=== PATIENT | female | born 1955 | race Caucasian/White ===

== ENCOUNTER 2018-01-29 11:02 | Emergency (ER) | payer BC ==
[2018-01-29 11:11] VITALS: BP 161/75; PULSE 86; RESP 16; TEMP 98.8; O2SAT 96
[2018-01-29] MEDS ORDERED: SODIUM CHLORIDE 0.9% FLUSH 10 ML FLUSH IVF PRN (11:45)
[2018-01-29 11:54] VITALS: RESP 18; O2SAT 96
[2018-01-29 12:03] LABS: AUTOMATED NEUTROPHIL # 10.5 TH/MM3 (1.8-7.7); BASOPHIL % 0.3 % (0.0-2.0); HEMATOCRIT 42.9 % (35.0-46.0); HEMOGLOBIN 13.6 GM/DL (11.6-15.3); LYMPH % 6.8 % (9.0-44.0); LYMPHOCYTE # 0.8 TH/MM3 (1.0-4.8); MEAN CELL VOLUME 85.1 FL (80.0-100.0); MEAN CORPUSCULAR HEMOGLOBIN 26.9 PG (27.0-34.0); MEAN CORPUSCULAR HGB CONC 31.6 % (32.0-36.0); MEAN PLATELET VOLUME 8.6 FL (7.0-11.0); MONO % 5.5 % (0.0-8.0); MONOCYTE # 0.7 TH/MM3 (0-0.9); NEUT % 87.4 % (16.0-70.0); PLATELET COUNT 171 TH/MM3 (150-450); RED BLOOD COUNT 5.04 MIL/MM3 (4.00-5.30); RED CELL DISTRIBUTION WIDTH 15.8 % (11.6-17.2)
--- NOTE | 2018-01-29 12:03 | RADRPT ---
EXAM DATE/TIME: 01/29/2018 11:42 [facility] COMPARISON: No previous studies available for comparison. INDICATIONS : Chest pain, short of breath. MEDICAL HISTORY : None. SURGICAL HISTORY : None. ENCOUNTER: Initial ACUITY: 2 days PAIN SCORE: 7/10 LOCATION: Bilateral chest FINDINGS: Left basilar consolidation is noted consistent with atelectasis and/or pneumonia. Clinical correlatio n is recommended. The right lung is clear. The heart is normal. CONCLUSION: Left basilar consolidation consistent with atelectasis and/or pneumonia. Clinical correlation is barney mmended. Christiano Russell MD on January 29, 2018 at 12:00 Board Certified Radiologist. This report was verified electronically.
[2018-01-29 12:12] LABS: CHLORIDE 101 MEQ/L (98-107); SODIUM (NA) 135 MEQ/L (136-145)
[2018-01-29 12:15] LABS: CALCIUM 8.4 MG/DL (8.5-10.1)
[2018-01-29] MEDS ORDERED: KETOROLAC TROMETHAMINE 30 MG/ML (IVP) VIAL IV PUSH ONE (12:15)
[2018-01-29 12:16] LABS: BICARBONATE 21.8 MEQ/L (21.0-32.0); BLOOD UREA NITROGEN 18 MG/DL (7-18); GLUCOSE,RANDOM 208 MG/DL (74-106); MAGNESIUM 2.1 MG/DL (1.5-2.5)
[2018-01-29 12:19] LABS: ALT (GPT) 72 U/L (10-53); AST (GOT) 76 U/L (15-37); GLOMERULAR FILTRATION RATE 30 ML/MIN (>89)
[2018-01-29 12:20] LABS: TOTAL BILIRUBIN ADULT 0.7 MG/DL (0.2-1.0); TOTAL PROTEIN 8.1 GM/DL (6.4-8.2)
[2018-01-29 12:22] LABS: ALKALINE PHOSPHATASE 314 U/L (45-117)
[2018-01-29 12:24] LABS: TROPONIN I LESS THAN 0.02 NG/ML (0.02-0.05)
[2018-01-29] MEDS ORDERED: AZIT250T3 PO (12:43)
[2018-01-29] MEDS ORDERED: NAPR250T4 PO (12:43)
[2018-01-29 12:44] VITALS: BP 117/68; PULSE 74; RESP 18; O2SAT 98
--- NOTE | 2018-01-29 12:44 | PD ---
HPI Chief Complaint: Chest Pain Time Seen by Provider: 11:33 Travel History International Travel<30 days: No Contact w/Intl Traveler<30days: No Traveled to known affect area: No History of Present Illness HPI This 62-year-old woman who presents department complaining of chest pain is gone once to 11 PM last night. She has been sick for the past week or so, cough , sputum production, no real fevers. This is overall improving. Pain is worse with deep breathing, or cough, or with any movement. Medial little bit of shortness of breath. No other symptoms. She otherwise had been feeling well and healthy prior to this. No history of heart disease or lung disease. History Past Medical History Medical History: Denies Significant Hx Influenza Vaccination: No Social History Alcohol Use: Yes Tobacco Use: No Allergies-Medications (Allergen,Severity, Reaction): Coded Allergies: No Known Allergies (Unverified , 01/29/18) Reported Meds & Prescriptions Reported Meds & Active Scripts Active No Active Prescriptions or Reported Medications Review of Systems Except as stated in HPI: all other systems reviewed are Neg Physical Exam Narrative GENERAL: Well-appearing 62-year-old woman, no acute distress. SKIN: Focused skin assessment warm/dry. HEAD: Atraumatic. Normocephalic. EYES: Pupils equal and round. No scleral icterus. No injection or drainage. ENT: No nasal bleeding or discharge. Mucous membranes pink and moist. NECK: Trachea midline. No JVD. CARDIOVASCULAR: Regular rate and rhythm. No murmur appreciated. RESPIRATORY: No accessory muscle use. Coarse rales in the left base. GASTROINTESTINAL: Abdomen soft, non-tender, nondistended. Hepatic and splenic margins not palpable. MUSCULOSKELETAL: No obvious deformities. No clubbing. No cyanosis. No edema. NEUROLOGICAL: Awake and alert. No obvious cranial nerve deficits. Motor grossly within normal limits. Normal speech. PSYCHIATRIC: Appropriate mood and affect; insight and judgment normal. Data Data Last Documented VS Vital Signs Date Time Temp Pulse Resp B/P (MAP) Pulse Ox O2 Delivery O2 Flow Rate FiO2 01/29/18 11:54 18 96 Nasal Cannula 2.00 01/29/18 11:14 86 01/29/18 11:11 98.8 161/75 (103) Orders Orders Electrocardiogram (01/29/18 11:34) Complete Blood Count With Diff (01/29/18 11:34) Comprehensive Metabolic Panel (01/29/18 11:34) Magnesium (Mg) (01/29/18 11:34) Troponin I (01/29/18 11:34) Lipase (01/29/18 11:34) Ecg Monitoring (01/29/18 11:34) Iv Access Insert/Monitor (01/29/18 11:34) Oximetry (01/29/18 11:34) Oxygen Administration (01/29/18 11:34) Sodium Chloride 0.9% Flush (Ns Flush) (01/29/18 11:45) Chest, Pa & Lat (01/29/18 11:34) Ketorolac Inj (Toradol Inj) (01/29/18 12:15) Azithromycin (Zithromax) (01/29/18 12:45) Labs Laboratory Tests Test 01/29/18 11:15 White Blood Count 12.0 TH/MM3 Red Blood Count 5.04 MIL/MM3 Hemoglobin 13.6 GM/DL Hematocrit 42.9 % Mean Corpuscular Volume 85.1 FL Mean Corpuscular Hemoglobin 26.9 PG Mean Corpuscular Hemoglobin Concent 31.6 % Red Cell Distribution Width 15.8 % Platelet Count 171 TH/MM3 Mean Platelet Volume 8.6 FL Neutrophils (%) (Auto) 87.4 % Lymphocytes (%) (Auto) 6.8 % Monocytes (%) (Auto) 5.5 % Eosinophils (%) (Auto) 0.0 % Basophils (%) (Auto) 0.3 % Neutrophils # (Auto) 10.5 TH/MM3 Lymphocytes # (Auto) 0.8 TH/MM3 Monocytes # (Auto) 0.7 TH/MM3 Eosinophils # (Auto) 0.0 TH/MM3 Basophils # (Auto) 0.0 TH/MM3 CBC Comment DIFF FINAL Differential Comment Blood Urea Nitrogen 18 MG/DL Creatinine 1.70 MG/DL Random Glucose 208 MG/DL Total Protein 8.1 GM/DL Albumin 3.0 GM/DL Calcium Level 8.4 MG/DL Magnesium Level 2.1 MG/DL Alkaline Phosphatase 314 U/L Aspartate Amino Transf (AST/SGOT) 76 U/L Alanine Aminotransferase (ALT/SGPT) 72 U/L Total Bilirubin 0.7 MG/DL Sodium Level 135 MEQ/L Potassium Level 4.0 MEQ/L Chloride Level 101 MEQ/L Carbon Dioxide Level 21.8 MEQ/L Anion Gap 12 MEQ/L Estimat Glomerular Filtration Rate 30 ML/MIN Troponin I LESS THAN 0.02 NG/ML Lipase 102 U/L MDM Medical Decision Making Medical Screen Exam Complete: Yes Emergency Medical Condition: Yes Interpretation(s) LABS: CBC remarkable for mild leukocytosis. CMP is remarkable for mild elevated creatinine, AST ALT and alk phos are all mildly elevated as well. Troponins negative. Lipase normal. Chest x-ray: Left basilar consolidation. Differential Diagnosis Pneumonia, pleurisy, ACS, other Narrative Course Well-appearing 62-year-old woman, cough cold symptoms for week, now with left- sided chest pain. Chest x-ray shows left basilar infiltrate likely pneumonia. Liver enzymes are little bit abnormal. Recommend treatment for pneumonia, outpatient follow-up. Diagnosis Primary Impression: Pneumonia Additional Instructions: Take azithromycin as prescribed. Take Naprosyn as needed for pain. Drink plenty fluids stay well-hydrated. Follow with her primary doctor for follow-up for pneumonia, as well as follow- up of your abnormal liver test. Med/Other Pt SpecificInfo: Prescription(s) given Scripts Naproxen (Naproxen) 250 Mg Tab 250 MG PO BID, #14 TAB 0 Refills Prov: Maverick Cassidy MD 01/29/18 Azithromycin (Azithromycin) 250 Mg Tab 250 MG PO DAILY for Infection for 4 Days, #4 TAB 0 Refills Prov: Maverick Cassidy MD 01/29/18 Disposition: 01 DISCHARGE HOME Condition: Stable Maverick Cassidy MD Jan 29, 2018 12:44
[2018-01-29] MEDS ORDERED: AZITHROMYCIN 250 MG TAB PO ONE (12:45)
[2018-01-29 12:53] VITALS: RESP 16
--- NOTE | 2018-01-30 23:07 | EKG ---
Date Performed: 01/29/2018 Time Performed: 11:13:59 PTAGE: 62 years EKG: Sinus rhythm VOLTAGE CRITERIA FOR LVH ABNORMAL ECG NO PREVIOUS TRACING DOCTOR: Casey Virk Interpretating Date/Time 01/30/2018 23:06:09
== END 2018-01-29 13:29 | disposition home or self-care (01) ==
LOC: PHED 11:02
DX: J18.9 Pneumonia, unspecified organism (principal); R94.31 Abnormal electrocardiogram [ECG] [EKG]
CPT/HCPCS: 71046; 80053; 83690; 83735; 84484; 85025; 93005; 96374; 99285; J1885

== ENCOUNTER 2018-01-30 11:13 | Inpatient (IN) | payer BC ==
[~2018-01-30] VITALS: Ht 160 cm; Wt 102.2 kg
[2018-01-30] VITALS (12 sets, daily range): BP systolic 104–207; BP diastolic 57–91; PULSE 72–112; RESP 16–40; TEMP 97.1–98.5; O2SAT 90–100
[~2018-01-30 11:13] MED LIST: AZIT250T3 PO; NAPR250T4 PO
[2018-01-30] MEDS ORDERED: SODIUM CHLORIDE 0.9% FLUSH 10 ML FLUSH IVF PRN (16:00)
[2018-01-30] MEDS ORDERED: SODIUM CHLOR 0.9% 1000 ML INJ 1,000 ML IV ONE ×5 (16:00→21:15)
--- NOTE | 2018-01-30 16:10 | PD ---
HPI Chief Complaint: Respiratory Symptoms Time Seen by Provider: 15:50 Travel History International Travel<30 days: No Contact w/Intl Traveler<30days: No Traveled to known affect area: No History of Present Illness HPI Patient is a 62-year-old female presenting to the emergency department for evaluation of increasing shortness of breath and chest pain. She reports 1 week of coughing 3 days of pain in her left chest which radiates to her back, which prompted the visit to the emergency room yesterday. She rates her pain a 6 out of 10. She reports fevers, chills, fatigue, mild nausea. She denies any abdominal pain, vomiting. Patient denies any significant past medical history. Symptom onset was gradual, symptom severity is severe, there are no alleviating factors. Patient states that she has been taking the antibiotics that were prescribed to her. She denies any current or historical tobacco use. PFSH Past Medical History Medical History: Denies Significant Hx Diminished Hearing: No Past Surgical History Abdominal Surgery: Yes (GASTRIC BYPASS ) Tonsillectomy: Yes Social History Alcohol Use: Yes Tobacco Use: No Substance Use: No Allergies-Medications (Allergen,Severity, Reaction): Coded Allergies: No Known Allergies (Unverified , 01/30/18) Reported Meds & Prescriptions Reported Meds & Active Scripts Active Naproxen 250 Mg Tab 250 Mg PO BID Azithromycin 250 Mg Tab 250 Mg PO DAILY 4 Days Review of Systems Except as stated in HPI: all other systems reviewed are Neg General / Constitutional: Positive: Fever, Chills Eyes: No: Blurred Vision HENT: No: Headaches, Lightheadedness, Sore Throat, Congestion Cardiovascular: Positive: Chest Pain or Discomfort Respiratory: Positive: Cough, Shortness of Breath, Wheezing Gastrointestinal: Positive: Nausea, No: Vomiting, Diarrhea, Abdominal Pain Musculoskeletal: No: Myalgias Neurologic: No: Weakness, Dizziness, Syncope, Focal Abnormalities Physical Exam Narrative GENERAL: Well-developed, well-nourished, alert female. Appears uncomfortable. SKIN: Warm and dry. HEAD: Atraumatic. Normocephalic. EYES: Pupils equal and round. No scleral icterus. No injection or drainage. ENT: No nasal bleeding or discharge. Mucous membranes pink and moist. NECK: Trachea midline. No JVD. CARDIOVASCULAR: Tachycardic RESPIRATORY: No accessory muscle use. Scattered expiratory wheezes with coarse breath sounds in bases. GASTROINTESTINAL: Abdomen soft, non-tender, nondistended. Hepatic and splenic margins not palpable. MUSCULOSKELETAL: Extremities without clubbing, cyanosis, or edema. No obvious deformities. NEUROLOGICAL: Awake and alert. No obvious cranial nerve deficits. Motor grossly within normal limits. Five out of 5 muscle strength in the arms and legs. Normal speech. PSYCHIATRIC: Appropriate mood and affect; insight and judgment normal. Data Data Last Documented VS Vital Signs Date Time Temp Pulse Resp B/P (MAP) Pulse Ox O2 Delivery O2 Flow Rate FiO2 01/30/18 18:25 97.5 110 40 170/89 (116) 94 Nasal Cannula 2.00 Orders Orders Complete Blood Count With Diff (01/30/18 15:56) Comprehensive Metabolic Panel (01/30/18 15:56) Act Partial Throm Time (Ptt) (01/30/18 15:56) Prothrombin Time / Inr (Pt) (01/30/18 15:56) Magnesium (Mg) (01/30/18 15:56) Ckmb (Isoenzyme) Profile (01/30/18 15:56) Troponin I (01/30/18 15:56) Blood Culture (01/30/18 15:56) Iv Access Insert/Monitor (01/30/18 15:56) Electrocardiogram (01/30/18 15:56) Ecg Monitoring (01/30/18 15:56) Oximetry (01/30/18 15:56) Oxygen Administration (01/30/18 15:56) Chest, Single Ap (01/30/18 15:56) Sodium Chloride 0.9% Flush (Ns Flush) (01/30/18 16:00) Albuterol-Ipratropium Neb (Duoneb Neb) (01/30/18 16:00) Lactic Acid Sepsis Protocol (01/30/18 15:56) Sodium Chlor 0.9% 1000 Ml Inj (Ns 1000 M (01/30/18 16:00) Sodium Chlor 0.9% 1000 Ml Inj (Ns 1000 M (01/30/18 17:30) Ceftriaxone Inj (Rocephin Inj) (01/30/18 17:30) Morphine Inj (Morphine Inj) (01/30/18 17:30) Ondansetron Inj (Zofran Inj) (01/30/18 17:30) Azithromycin Inj (Zithromax Inj) (01/30/18 17:30) Sepsis Workup Initiated (01/30/18 ) Sodium Chlor 0.9% 1000 Ml Inj (Ns 1000 M (01/30/18 17:28) Piperacil-Tazo 3.375 Gm Premix (Zosyn 3. (01/30/18 18:00) Arterial Blood Gas (Abg) (01/30/18 ) Vancomycin Inj (Vancomycin Inj) (01/30/18 18:00) Ketorolac Inj (Toradol Inj) (01/30/18 18:00) Lactic Acid Sepsis Protocol (01/30/18 18:16) Resp Bipap / Cpap Non Invas Vt (01/30/18 ) Admit Order (Ed Use Only) (01/30/18 18:43) Labs Laboratory Tests Test 01/30/18 16:00 01/30/18 16:05 01/30/18 18:05 01/30/18 18:07 White Blood Count 13.1 TH/MM3 Red Blood Count 4.91 MIL/MM3 Hemoglobin 13.6 GM/DL Hematocrit 42.0 % Mean Corpuscular Volume 85.5 FL Mean Corpuscular Hemoglobin 27.6 PG Mean Corpuscular Hemoglobin Concent 32.3 % Red Cell Distribution Width 16.8 % Platelet Count 245 TH/MM3 Mean Platelet Volume 9.1 FL Neutrophils (%) (Auto) 88.9 % Lymphocytes (%) (Auto) 4.5 % Monocytes (%) (Auto) 6.6 % Eosinophils (%) (Auto) 0.0 % Basophils (%) (Auto) 0.0 % Neutrophils # (Auto) 11.7 TH/MM3 Lymphocytes # (Auto) 0.6 TH/MM3 Monocytes # (Auto) 0.9 TH/MM3 Eosinophils # (Auto) 0.0 TH/MM3 Basophils # (Auto) 0.0 TH/MM3 CBC Comment AUTO DIFF Differential Total Cells Counted 100 Neutrophils % (Manual) 69 % Band Neutrophils % 23 % Lymphocytes % 2 % Monocytes % 6 % Neutrophils # (Manual) 12.1 TH/MM3 Differential Comment FINAL DIFF MANUAL Toxic Granulation 1+ Dohle Bodies PRESENT Platelet Estimate NORMAL Platelet Morphology Comment NORMAL Prothrombin Time 10.7 SEC Prothromb Time International Ratio 1.1 RATIO Activated Partial Thromboplast Time 29.4 SEC Blood Urea Nitrogen 44 MG/DL Creatinine 2.83 MG/DL Random Glucose 169 MG/DL Total Protein 8.5 GM/DL Albumin 2.8 GM/DL Calcium Level 9.4 MG/DL Magnesium Level 2.1 MG/DL Alkaline Phosphatase 247 U/L Aspartate Amino Transf (AST/SGOT) 53 U/L Alanine Aminotransferase (ALT/SGPT) 56 U/L Total Bilirubin 0.8 MG/DL Sodium Level 134 MEQ/L Potassium Level 4.3 MEQ/L Chloride Level 101 MEQ/L Carbon Dioxide Level 18.1 MEQ/L Anion Gap 15 MEQ/L Estimat Glomerular Filtration Rate 17 ML/MIN Total Creatine Kinase 82 U/L Troponin I LESS THAN 0.02 NG/ML Lactic Acid Level 3.5 mmol/L Blood Gas Puncture Site RT RADIAL Blood Gas Patient Temperature 98.6 Blood Gas HCO3 10 mmol/L Blood Gas Base Excess -14.5 mmol/L Blood Gas Oxygen Saturation 88 % Arterial Blood pH 7.33 Arterial Blood Partial Pressure CO2 20 mmHg Arterial Blood Partial Pressure O2 64 mmHG Arterial Blood Oxygen Content 16.5 Vol % Arterial Blood Carboxyhemoglobin 0.8 % Arterial Blood Methemoglobin 0.7 % Blood Gas Hemoglobin 13.3 G/DL Oxygen Delivery Device NASAL CANNULA Blood Gas Liter Flow 2 L/M [facility] Medical Decision Making Medical Screen Exam Complete: Yes Emergency Medical Condition: Yes Medical Record Reviewed: Yes Interpretation(s) Last Impressions Chest X-Ray 01/30/18 1556 Signed Impressions: Service Date/Time: Sunday, January 30, 2018 16:01 - CONCLUSION: 1. Bilateral airspace disease with significant consolidation in the left base. 2. Elevated left hemidiaphragm versus eventration. Ramon Blunt MD Laboratory Tests Test 01/30/18 16:00 01/30/18 16:05 01/30/18 18:05 01/30/18 18:07 White Blood Count 13.1 TH/MM3 Red Blood Count 4.91 MIL/MM3 Hemoglobin 13.6 GM/DL Hematocrit 42.0 % Mean Corpuscular Volume 85.5 FL Mean Corpuscular Hemoglobin 27.6 PG Mean Corpuscular Hemoglobin Concent 32.3 % Red Cell Distribution Width 16.8 % Platelet Count 245 TH/MM3 Mean Platelet Volume 9.1 FL Neutrophils (%) (Auto) 88.9 % Lymphocytes (%) (Auto) 4.5 % Monocytes (%) (Auto) 6.6 % Eosinophils (%) (Auto) 0.0 % Basophils (%) (Auto) 0.0 % Neutrophils # (Auto) 11.7 TH/MM3 Lymphocytes # (Auto) 0.6 TH/MM3 Monocytes # (Auto) 0.9 TH/MM3 Eosinophils # (Auto) 0.0 TH/MM3 Basophils # (Auto) 0.0 TH/MM3 CBC Comment AUTO DIFF Differential Total Cells Counted 100 Neutrophils % (Manual) 69 % Band Neutrophils % 23 % Lymphocytes % 2 % Monocytes % 6 % Neutrophils # (Manual) 12.1 TH/MM3 Differential Comment FINAL DIFF MANUAL Toxic Granulation 1+ Dohle Bodies PRESENT Platelet Estimate NORMAL Platelet Morphology Comment NORMAL Prothrombin Time 10.7 SEC Prothromb Time International Ratio 1.1 RATIO Activated Partial Thromboplast Time 29.4 SEC Blood Urea Nitrogen 44 MG/DL Creatinine 2.83 MG/DL Random Glucose 169 MG/DL Total Protein 8.5 GM/DL Albumin 2.8 GM/DL Calcium Level 9.4 MG/DL Magnesium Level 2.1 MG/DL Alkaline Phosphatase 247 U/L Aspartate Amino Transf (AST/SGOT) 53 U/L Alanine Aminotransferase (ALT/SGPT) 56 U/L Total Bilirubin 0.8 MG/DL Sodium Level 134 MEQ/L Potassium Level 4.3 MEQ/L Chloride Level 101 MEQ/L Carbon Dioxide Level 18.1 MEQ/L Anion Gap 15 MEQ/L Estimat Glomerular Filtration Rate 17 ML/MIN Total Creatine Kinase 82 U/L Troponin I LESS THAN 0.02 NG/ML Lactic Acid Level 3.5 mmol/L Blood Gas Puncture Site RT RADIAL Blood Gas Patient Temperature 98.6 Blood Gas HCO3 10 mmol/L Blood Gas Base Excess -14.5 mmol/L Blood Gas Oxygen Saturation 88 % Arterial Blood pH 7.33 Arterial Blood Partial Pressure CO2 20 mmHg Arterial Blood Partial Pressure O2 64 mmHG Arterial Blood Oxygen Content 16.5 Vol % Arterial Blood Carboxyhemoglobin 0.8 % Arterial Blood Methemoglobin 0.7 % Blood Gas Hemoglobin 13.3 G/DL Oxygen Delivery Device NASAL CANNULA Blood Gas Liter Flow 2 L/M Vital Signs Date Time Temp Pulse Resp B/P (MAP) Pulse Ox O2 Delivery O2 Flow Rate FiO2 01/30/18 15:51 107 36 156/76 (102) 90 Room Air 01/30/18 11:25 97.1 93 20 126/57 (80) 93 Differential Diagnosis Respiratory failure versus pneumonia versus pulmonary embolism versus metabolic abnormality versus other Narrative Course Patient is a 62-year-old female presenting for increasing shortness of breath and chest pain. Medical records reviewed. Patient is mildly tachycardic on arrival. She was placed on 2 L of oxygen via nasal cannula. Oxygen saturation is stable at 94% currently. Labs and imaging ordered and pending. CBC with white blood cell count at 13.1 with left shift and significant bandemia Lactic acid 3.5 Chemistry with BUN and creatinine of 44/2.83 Cardiac enzymes are negative Mild transaminitis noted Vancomycin and zosyn ordered, pt received a total of 3L IVF. Repeat lactic acid is pending ABG with metabolic acidosis with respiratory alkalosis. Bipap ordered by Dr. Marie. Dr. Marie discussed patient with Dr. Peña. Pt admitted to [facility] [place]. Diagnosis Primary Impression: PNA (pneumonia) Qualified Codes: J18.9 - Pneumonia, unspecified organism Additional Impressions: ARF (acute renal failure) Qualified Codes: N17.9 - Acute kidney failure, unspecified Sepsis Qualified Codes: A41.9 - Sepsis, unspecified organism Metabolic acidosis Respiratory alkalosis Admitting Information Admitting Physician Requests: Admit Condition: Stable Rajwinder Haley Jan 30, 2018 16:10
--- NOTE | 2018-01-30 16:15 | RADRPT ---
EXAM DATE/TIME: 01/30/2018 16:01 [facility] COMPARISON: CHEST PA & LAT, January 29, 2018, 11:42. INDICATIONS : Short of breath. MEDICAL HISTORY : was told she has pneumonia yesterday at [facility] SURGICAL HISTORY : None. ENCOUNTER: Initial ACUITY: 1 day PAIN SCORE: 10/10 LOCATION: Bilateral chest FINDINGS: Significant air space disease is identified throughout the left lung base. There is subsegmental airs pace disease laterally in the right mid lung. Air-containing colon is identified overlying the cardiac silhouette indicating elevation or eventrati on of the diaphragm. Heart size cannot be determined due to overlying opacity. CONCLUSION: 1. Bilateral airspace disease with significant consolidation in the left base. 2. Elevated left hemidiaphragm versus eventration. Ramon Blunt MD on January 30, 2018 at 16:11 Board Certified Radiologist. This report was verified electronically.
[2018-01-30] MEDS: RESP: ALBUTEROL 2.5 MG/IPRATROPIUM 0.5 MG NEB (SCH) INH ×2 (16:20→20:25)
[2018-01-30 16:45] LABS: INTERNATIONAL NORMALIZED RATIO 1.1 RATIO; PROTHROMBIN TIME - PATIENT 10.7 SEC (9.8-11.6)
[2018-01-30 16:47] LABS: AUTOMATED NEUTROPHIL # 11.7 TH/MM3 (1.8-7.7); HEMOGLOBIN 13.6 GM/DL (11.6-15.3); LYMPH % 4.5 % (9.0-44.0); LYMPHOCYTE # 0.6 TH/MM3 (1.0-4.8); MEAN CELL VOLUME 85.5 FL (80.0-100.0); MEAN CORPUSCULAR HEMOGLOBIN 27.6 PG (27.0-34.0); MEAN CORPUSCULAR HGB CONC 32.3 % (32.0-36.0); MEAN PLATELET VOLUME 9.1 FL (7.0-11.0); MONO % 6.6 % (0.0-8.0); MONOCYTE # 0.9 TH/MM3 (0-0.9); NEUT % 88.9 % (16.0-70.0); PLATELET COUNT 245 TH/MM3 (150-450); RED BLOOD COUNT 4.91 MIL/MM3 (4.00-5.30); RED CELL DISTRIBUTION WIDTH 16.8 % (11.6-17.2); WHITE BLOOD COUNT 13.1 TH/MM3 (4.0-11.0)
[2018-01-30 17:13] LABS: LACTIC ACID SEPSIS PROTOCOL 3.5 mmol/L (0.4-2.0)
[2018-01-30 17:29] LABS: ALBUMIN 2.8 GM/DL (3.4-5.0); ALKALINE PHOSPHATASE 247 U/L (45-117); ALT (GPT) 56 U/L (10-53); AST (GOT) 53 U/L (15-37); BICARBONATE 18.1 MEQ/L (21.0-32.0); BLOOD UREA NITROGEN 44 MG/DL (7-18); CALCIUM 9.4 MG/DL (8.5-10.1); CHLORIDE 101 MEQ/L (98-107); CREATININE 2.83 MG/DL (0.50-1.00); GLOMERULAR FILTRATION RATE 17 ML/MIN (>89); GLUCOSE,RANDOM 169 MG/DL (74-106); MAGNESIUM 2.1 MG/DL (1.5-2.5); SODIUM (NA) 134 MEQ/L (136-145); TOTAL BILIRUBIN ADULT 0.8 MG/DL (0.2-1.0); TOTAL PROTEIN 8.5 GM/DL (6.4-8.2); TROPONIN I LESS THAN 0.02 NG/ML (0.02-0.05)
[2018-01-30] MEDS ORDERED: MORPHINE SULFATE 2 MG/ML SYRINGE IV PUSH ONE (17:30)
[2018-01-30] MEDS ORDERED: ONDANSETRON HCL 4 MG/2 ML VIAL IV PUSH ONE (17:30)
[2018-01-30] MEDS ORDERED: cefTRIAXone INJ 2,000 MG in SODIUM CHLORIDE 0.9% INJ 100 ML IV ONE (17:30)
[2018-01-30] MEDS ORDERED: AZITHROMYCIN INJ 250 MG in SODIUM CHLOR 0.9% 250 ML INJ 250 ML IV ONE (17:30)
[2018-01-30 17:41] LABS: BANDS 23 % (0-6); DOHLE BODIES PRESENT (NONE SEEN); LYMPHOCYTES 2 % (9-44); MONOCYTES 6 % (0-8); NEUTROPHIL # MANUAL DIFF 12.1 TH/MM3 (1.8-7.7); POLYS (SEG NEUTROPHILS) 69 % (16-70)
[2018-01-30 17:43] LABS: TOXIC GRANULATION 1+ (NORMAL)
[2018-01-30] MEDS ORDERED: VANCOMYCIN INJ 1,000 MG in SODIUM CHLOR 0.9% 250 ML INJ 250 ML IV ONE (18:00)
[2018-01-30] MEDS ORDERED: PIPERACIL-TAZO 3.375 GM PREMIX 50 ML IV ONE (18:00)
[2018-01-30] MEDS ORDERED: KETOROLAC TROMETHAMINE 30 MG/ML (IVP) VIAL IV PUSH ONE (18:00)
--- NOTE | 2018-01-30 18:04 | PD ---
Physical Exam Date Seen by Provider: Jan 30, 2018 Time Seen by Provider: 18:00 Narrative 62-year-old female came to the emergency room with history of shortness of breath and chest pain. She was seen in the [place] emergency room yesterday where she was diagnosed with pneumonia and discharged home on antibiotic. Patient is back here because she did not get better and hence it got worse. He has been hypoxic and tachycardic. She's been seen by my nurse practitioner him supervising her. Blood test results suggestive of sepsis. She has some left shift with significant bandemia. Lactic acid is elevated. Chest x-ray suggestive of bilateral airspace disease with significant left lower lobe consolidation. Patient is tachypneic and shallow breathing. Oxygen saturation is low 90s on 3 L of nasal cannula. Heart rate is elevated and patient is complaining of chest pain. Patient has been given IV Zosyn and vancomycin and medicated for pain. I have ordered Toradol as well. Patient in my opinion should go to the intensive care unit given her clinical scenario. I have asked for a large of blood gas as well. The patient has been sent to the party bus driver. Awaiting for the party bus driver to call back. Data Data Last Documented VS Vital Signs Date Time Temp Pulse Resp B/P (MAP) Pulse Ox O2 Delivery O2 Flow Rate FiO2 01/30/18 18:28 100 100 01/30/18 18:25 97.5 110 40 170/89 (116) Nasal Cannula 2.00 Orders Orders Complete Blood Count With Diff (01/30/18 15:56) Comprehensive Metabolic Panel (01/30/18 15:56) Act Partial Throm Time (Ptt) (01/30/18 15:56) Prothrombin Time / Inr (Pt) (01/30/18 15:56) Magnesium (Mg) (01/30/18 15:56) Ckmb (Isoenzyme) Profile (01/30/18 15:56) Troponin I (01/30/18 15:56) Blood Culture (01/30/18 15:56) Iv Access Insert/Monitor (01/30/18 15:56) Electrocardiogram (01/30/18 15:56) Ecg Monitoring (01/30/18 15:56) Oximetry (01/30/18 15:56) Oxygen Administration (01/30/18 15:56) Chest, Single Ap (01/30/18 15:56) Sodium Chloride 0.9% Flush (Ns Flush) (01/30/18 16:00) Albuterol-Ipratropium Neb (Duoneb Neb) (01/30/18 16:00) Lactic Acid Sepsis Protocol (01/30/18 15:56) Sodium Chlor 0.9% 1000 Ml Inj (Ns 1000 M (01/30/18 16:00) Sodium Chlor 0.9% 1000 Ml Inj (Ns 1000 M (01/30/18 17:30) Ceftriaxone Inj (Rocephin Inj) (01/30/18 17:30) Morphine Inj (Morphine Inj) (01/30/18 17:30) Ondansetron Inj (Zofran Inj) (01/30/18 17:30) Azithromycin Inj (Zithromax Inj) (01/30/18 17:30) Sepsis Workup Initiated (01/30/18 ) Sodium Chlor 0.9% 1000 Ml Inj (Ns 1000 M (01/30/18 17:28) Piperacil-Tazo 3.375 Gm Premix (Zosyn 3. (01/30/18 18:00) Arterial Blood Gas (Abg) (01/30/18 ) Vancomycin Inj (Vancomycin Inj) (01/30/18 18:00) Ketorolac Inj (Toradol Inj) (01/30/18 18:00) Resp Bipap / Cpap Non Invas Vt (01/30/18 ) Admit Order (Ed Use Only) (01/30/18 18:43) Labs Laboratory Tests Test 01/30/18 16:00 01/30/18 16:05 01/30/18 18:07 White Blood Count 13.1 TH/MM3 Red Blood Count 4.91 MIL/MM3 Hemoglobin 13.6 GM/DL Hematocrit 42.0 % Mean Corpuscular Volume 85.5 FL Mean Corpuscular Hemoglobin 27.6 PG Mean Corpuscular Hemoglobin Concent 32.3 % Red Cell Distribution Width 16.8 % Platelet Count 245 TH/MM3 Mean Platelet Volume 9.1 FL Neutrophils (%) (Auto) 88.9 % Lymphocytes (%) (Auto) 4.5 % Monocytes (%) (Auto) 6.6 % Eosinophils (%) (Auto) 0.0 % Basophils (%) (Auto) 0.0 % Neutrophils # (Auto) 11.7 TH/MM3 Lymphocytes # (Auto) 0.6 TH/MM3 Monocytes # (Auto) 0.9 TH/MM3 Eosinophils # (Auto) 0.0 TH/MM3 Basophils # (Auto) 0.0 TH/MM3 CBC Comment AUTO DIFF Differential Total Cells Counted 100 Neutrophils % (Manual) 69 % Band Neutrophils % 23 % Lymphocytes % 2 % Monocytes % 6 % Neutrophils # (Manual) 12.1 TH/MM3 Differential Comment FINAL DIFF MANUAL Toxic Granulation 1+ Dohle Bodies PRESENT Platelet Estimate NORMAL Platelet Morphology Comment NORMAL Prothrombin Time 10.7 SEC Prothromb Time International Ratio 1.1 RATIO Activated Partial Thromboplast Time 29.4 SEC Blood Urea Nitrogen 44 MG/DL Creatinine 2.83 MG/DL Random Glucose 169 MG/DL Total Protein 8.5 GM/DL Albumin 2.8 GM/DL Calcium Level 9.4 MG/DL Magnesium Level 2.1 MG/DL Alkaline Phosphatase 247 U/L Aspartate Amino Transf (AST/SGOT) 53 U/L Alanine Aminotransferase (ALT/SGPT) 56 U/L Total Bilirubin 0.8 MG/DL Sodium Level 134 MEQ/L Potassium Level 4.3 MEQ/L Chloride Level 101 MEQ/L Carbon Dioxide Level 18.1 MEQ/L Anion Gap 15 MEQ/L Estimat Glomerular Filtration Rate 17 ML/MIN Total Creatine Kinase 82 U/L Troponin I LESS THAN 0.02 NG/ML Lactic Acid Level 3.5 mmol/L Blood Gas Puncture Site RT RADIAL Blood Gas Patient Temperature 98.6 Blood Gas HCO3 10 mmol/L Blood Gas Base Excess -14.5 mmol/L Blood Gas Oxygen Saturation 88 % Arterial Blood pH 7.33 Arterial Blood Partial Pressure CO2 20 mmHg Arterial Blood Partial Pressure O2 64 mmHG Arterial Blood Oxygen Content 16.5 Vol % Arterial Blood Carboxyhemoglobin 0.8 % Arterial Blood Methemoglobin 0.7 % Blood Gas Hemoglobin 13.3 G/DL Oxygen Delivery Device NASAL CANNULA Blood Gas Liter Flow 2 L/M MDM Supervised Visit with TRACY: Yes Critical Care Narrative Aggregate critical care time was 45 minutes. Time to perform other separately billable procedures was not included in the critical care time. My time did not include minutes spent treating any other patients simultaneously or on activities that did not directly contribute to the patient's treatment. The services I provided to this patient were to treat and/or prevent clinically significant deterioration that could result in: Respiratory distress, sepsis, hypoxia, pneumonia I provided critical care services requiring my management, as noted below: Chart data review, documentation time, medication orders and management, vital sign assessments/reviewing monitor data, ordering and reviewing lab tests, ordering and interpreting/reviewing x-rays and diagnostic studies, care of the patient and discussion of the patient with the admitting physicians. Physician Communication Physician Communication Birgit Guevara MD Jan 30, 2018 18:04
[2018-01-30] MEDS ORDERED: SENNOSIDES 8.6 MG TAB PO PRN (19:00)
[2018-01-30] MEDS ORDERED: Vancomycin Consult Pharmacy 1 EA OTHER SCH (19:00)
[2018-01-30] MEDS ORDERED: LACTULOSE SYRUP 20 GM/30 ML CUP PO PRN (19:00)
[2018-01-30] MEDS ORDERED: ONDANSETRON HCL 4 MG/2 ML VIAL IV PUSH PRN (19:00)
[2018-01-30] MEDS ORDERED: CHLORHEXIDINE GLUCONATE 2 % 1 PACK (2 CLOTHS) TOP PRN (19:00)
[2018-01-30] MEDS ORDERED: NURSING INFORMATION XX SCH (19:00)
[2018-01-30] MEDS ORDERED: BISACODYL 10 MG SUPP RECTAL PRN (19:00)
[2018-01-30] MEDS ORDERED: MAGNESIUM HYDROXIDE SUSP 30 ML CUP PO PRN (19:00)
[2018-01-30] MEDS ORDERED: TEMAZEPAM 15 MG CAP PO PRN (19:00)
--- NOTE | 2018-01-30 19:00 | HHI.HP ---
HPI Service Critical Care Medicine Primary Care Physician No Primary Care Physician Admission Diagnosis sepsis, respiratory distress, metabolic acidosis, pneumonia Diagnosis: Travel History International Travel<30 Days: No Contact w/Intl Traveler <30 Da: No Traveled to Known Affected Are: No History of Present Illness 62-year-old female presents for evaluation of increasing shortness of breath and chest pain. She reports 1 week of coughing 3 days of pain in her left chest which radiates to her back, which prompted the visit to the emergency room yesterday. She rates her pain a 6 out of 10. She reports fevers, chills, fatigue, mild nausea. She denies any abdominal pain, vomiting. Patient denies any significant past medical history. Symptom onset was gradual, symptom severity is severe, there are no alleviating factors. Patient states that she has been taking the azithromycin antibiotics that were prescribed to her. She denies any current or historical tobacco use. Review of Systems ROS Unobtainable patient's respiratory distress on facemask BiPAP Past Family Social History Allergies: Coded Allergies: No Known Allergies (Unverified , 01/30/18) Past Medical History No significant past medical history Past Surgical History Abdominal Surgery: Yes (GASTRIC BYPASS ) Tonsillectomy: Yes Reported Medications Reported Meds & Active Scripts Active Naproxen 250 Mg Tab 250 Mg PO BID Azithromycin 250 Mg Tab 250 Mg PO DAILY 4 Days Active Ordered Medications Current Medications Medications (Trade) Dose Ordered Sig/Tyler Route PRN Reason Start Time Stop Time Status Last Admin Dose Admin Sodium Chloride (NS Flush) 2 ml UNSCH PRN IV FLUSH FLUSH AFTER USING IV ACCESS 01/30/18 19:00 Sodium Chloride (NS Flush) 2 ml BID IV FLUSH 01/30/18 21:00 Acetaminophen (Tylenol) 650 mg Q6H PRN PO PAIN 1-10 AND/OR FEVER >101F 01/30/18 19:00 01/30/18 19:48 Morphine Sulfate (Morphine Inj) 2 mg Q2H PRN IV PUSH PAIN SCALE 6 TO 10 01/30/18 19:00 Famotidine (Pepcid Inj) 20 mg Q12HR IV PUSH 01/30/18 21:00 Ondansetron HCl (Zofran Inj) 4 mg Q6H PRN IV PUSH NAUSEA OR VOMITING 01/30/18 19:00 Temazepam (Restoril) 15 mg HS PRN PO INSOMNIA 01/30/18 19:00 Albuterol/ Ipratropium (Duoneb Neb) 1 ampule Q6HR NEB INH 01/30/18 19:00 01/30/18 20:25 Albuterol/ Ipratropium (Duoneb Neb) 1 ampule Q2HR NEB PRN INH WHEEZING 01/30/18 19:00 Heparin Sodium (Porcine) (Heparin Inj) 5,000 units Q8HR SQ 01/30/18 22:00 Miscellaneous Information 1 [id number] XX 01/30/18 19:00 Chlorhexidine Gluconate (Chlorhexidine 2% Cloth) 3 pack Taper DAILY@04 TOP 01/31/18 04:00 01/27/19 03:59 Chlorhexidine Gluconate (Chlorhexidine 2% Cloth) 3 pack UNSCH PRN TOP HYGIENIC CARE 01/30/18 19:00 Senna/Docusate Sodium (Chiquis-Colace) 1 tab BID PO 01/30/18 21:00 Magnesium Hydroxide (Milk Of Magnesia Liq) 30 ml Q12H PRN PO Mild constipation 01/30/18 19:00 Sennosides (Senokot) 17.2 mg Q12H PRN PO Moderate constipation 01/30/18 19:00 Bisacodyl (Dulcolax Supp) 10 mg DAILY PRN RECTAL SEVERE CONSITIPATION 01/30/18 19:00 Lactulose (Lactulose Liq) 30 ml DAILY PRN PO SEVERE CONSITIPATION 01/30/18 19:00 Piperacillin Sod/ Tazobactam Sod 50 ml @ 100 mls/hr Q6H IV 01/31/18 00:00 Azithromycin 500 mg/Sodium Chloride 250 ml @ 250 mls/hr Q24H IV 01/30/18 20:00 Pharmacy Profile Note 0 ml @ 0 mls/hr UNSCH OTHER 01/30/18 19:00 Methylprednisolone Sodium Succinate (SoluMEDROL INJ) 40 mg Q12H IV PUSH 01/30/18 20:00 01/30/18 19:47 Sodium Bicarbonate 150 meq/Dextrose 1,150 ml @ 100 mls/hr [id number] IV 01/30/18 21:00 Vancomycin HCl 1000 mg/Sodium Chloride 250 ml @ 250 mls/hr ONCE ONCE IV 01/30/18 21:00 3/28/18 21:59 Family History No family history significant for coronary artery disease or malignancy Social History Alcohol Use: Yes Tobacco Use: No Substance Use: No Physical Exam Vital Signs Vital Signs Date Time Temp Pulse Resp B/P (MAP) Pulse Ox O2 Delivery O2 Flow Rate FiO2 01/30/18 18:25 97.5 110 40 170/89 (116) 94 Nasal Cannula 2.00 01/30/18 16:05 Nasal Cannula 2.00 01/30/18 16:05 90 Room Air 01/30/18 15:51 107 36 156/76 (102) 90 Room Air 01/30/18 11:25 97.1 93 20 126/57 (80) 93 Physical Exam GENERAL: Well-nourished, well-developed patient. In moderate to severe respiratory distress on facemask BiPAP SKIN: Warm and dry. HEAD: Normocephalic. EYES: No scleral icterus. No injection or drainage. NECK: Supple, trachea midline. No JVD or lymphadenopathy. CARDIOVASCULAR: Regular rate and rhythm without murmurs, gallops, or rubs. RESPIRATORY: Breath sounds equal bilaterally. Some accessory muscle use. Bilateral rails and rhonchi GASTROINTESTINAL: Abdomen soft, non-tender, nondistended. MUSCULOSKELETAL: No cyanosis, or edema. BACK: Nontender without obvious deformity. NEURO EXAM: GCS: 15 Mental Status: The patient is alert and oriented to person, place, and time with normal speech. Cranial Nerves: Visual acuity intact bilaterally. Visual guardado normal in all quadrants. Pupils are round, reactive to light. Extraocular movements are intact without ptosis. Hearing is normal bilaterally. Voice is normal. Tongue protrudes midline and moves symmetrically. Reflexes: Biceps, patellar, and Achilles are 2/4 bilaterally. No clonus. Sensation: Sensation is intact bilaterally to pain and light touch. Two-point discrimination is intact. Motor: Good muscle tone. Strength is 5/5 bilaterally. Cerebellar: [id number] and [id number] test normal bilaterally. Laboratory Laboratory Tests Test 01/30/18 16:00 01/30/18 16:05 01/30/18 18:05 01/30/18 18:07 White Blood Count 13.1 Red Blood Count 4.91 Hemoglobin 13.6 Hematocrit 42.0 Mean Corpuscular Volume 85.5 Mean Corpuscular Hemoglobin 27.6 Mean Corpuscular Hemoglobin Concent 32.3 Red Cell Distribution Width 16.8 Platelet Count 245 Mean Platelet Volume 9.1 Neutrophils (%) (Auto) 88.9 Lymphocytes (%) (Auto) 4.5 Monocytes (%) (Auto) 6.6 Eosinophils (%) (Auto) 0.0 Basophils (%) (Auto) 0.0 Neutrophils # (Auto) 11.7 Lymphocytes # (Auto) 0.6 Monocytes # (Auto) 0.9 Eosinophils # (Auto) 0.0 Basophils # (Auto) 0.0 CBC Comment AUTO DIFF Differential Total Cells Counted 100 Neutrophils % (Manual) 69 Band Neutrophils % 23 Lymphocytes % 2 Monocytes % 6 Neutrophils # (Manual) 12.1 Differential Comment FINAL DIFF MANUAL Toxic Granulation 1+ Dohle Bodies PRESENT Platelet Estimate NORMAL Platelet Morphology Comment NORMAL Prothrombin Time 10.7 Prothromb Time International Ratio 1.1 Activated Partial Thromboplast Time 29.4 Blood Urea Nitrogen 44 Creatinine 2.83 Random Glucose 169 Total Protein 8.5 Albumin 2.8 Calcium Level 9.4 Magnesium Level 2.1 Alkaline Phosphatase 247 Aspartate Amino Transf (AST/SGOT) 53 Alanine Aminotransferase (ALT/SGPT) 56 Total Bilirubin 0.8 Sodium Level 134 Potassium Level 4.3 Chloride Level 101 Carbon Dioxide Level 18.1 Anion Gap 15 Estimat Glomerular Filtration Rate 17 Total Creatine Kinase 82 Troponin I LESS THAN 0.02 Lactic Acid Level 3.5 Blood Gas Puncture Site RT RADIAL Blood Gas Patient Temperature 98.6 Blood Gas HCO3 10 Blood Gas Base Excess -14.5 Blood Gas Oxygen Saturation 88 Arterial Blood pH 7.33 Arterial Blood Partial Pressure CO2 20 Arterial Blood Partial Pressure O2 64 Arterial Blood Oxygen Content 16.5 Arterial Blood Carboxyhemoglobin 0.8 Arterial Blood Methemoglobin 0.7 Blood Gas Hemoglobin 13.3 Oxygen Delivery Device NASAL CANNULA Blood Gas Liter Flow 2 Date/Time Source Procedure Growth Status 01/30/18 16:05 Blood Peripheral Aerobic Blood Culture Pending Received 01/30/18 16:05 Blood Peripheral Anaerobic Blood Culture Pending Received Result Diagram: 01/30/18 1600 01/30/18 1600 Imaging Last 24 hours Impressions Chest X-Ray 01/30/18 1556 Signed Impressions: Service Date/Time: Tuesday, January 30, 2018 16:01 - CONCLUSION: 1. Bilateral airspace disease with significant consolidation in the left base. 2. Elevated left hemidiaphragm versus eventration. Ramon Blunt MD Chest CT 01/30/18 0000 Signed Impressions: Service Date/Time: Tuesday, January 30, 2018 20:07 - CONCLUSION: 1. Dense consolidation throughout the left lingula and left lower lobe. There is more patchy areas of consolidation in the upper lobes bilaterally. This pattern is most suggestive of inflammatory/infectious processes. 2. Mild left pleural effusion. 3. Status post gastric surgery/bypass with a mild hiatal hernia. Michael Gabriel MD Septic Shock Reassessment Septic shock perfusion: reassessment completed Caprini VTE Risk Assessment Caprini VTE Risk Assessment: Mod/High Risk (score >= 2) Caprini Risk Assessment Model Point Value = 1 Point Value = 2 Point Value = 3 Point Value = 5 Age 41-60 Minor surgery BMI > 25 kg/m2 Swollen legs Varicose veins or History of unexplained or recurrent spontaneous Oral contraceptives or hormone replacement Sepsis (< 1 month) Serious lung disease, including pneumonia (< 1 month) Abnormal pulmonary function Acute myocardial infarction Congestive heart failure (< 1 month) History of inflammatory bowel disease Medical patient at bed rest Age 61-74 Arthroscopic surgery Major open surgery (> 45 min) Laparoscopic surgery (> 45 min) Malignancy Confined to bed (> 72 hours) Immobilizing plaster cast Central venous access Age >= 75 History of VTE Family history of VTE Factor V Leiden Prothrombin [id number] Lupus anticoagulant Anticardiolipin antibodies Elevated serum homocysteine Heparin-induced thrombocytopenia Other congenital or acquired thrombophilia Stroke (< 1 month) Elective arthroplasty Hip, pelvis, or leg fracture Acute spinal cord injury (< 1 month) Prophylaxis Regimen Total Risk Factor Score Risk Level Prophylaxis Regimen 0-1 Low Early ambulation 2 Moderate Order ONE of the following: *Sequential Compression Device (SCD) *Heparin 5000 units SQ BID 3-4 Higher Order ONE of the following medications: *Heparin 5000 units SQ TID *Enoxaparin/Lovenox 40 mg SQ daily (WT < 150 kg, CrCl > 30 mL/min) *Enoxaparin/Lovenox 30 mg SQ daily (WT < 150 kg, CrCl > 10-29 mL/min) *Enoxaparin/Lovenox 30 mg SQ BID (WT < 150 kg, CrCl > 30 mL/min) AND/OR *Sequential Compression Device (SCD) 5 or more Highest Order ONE of the following medications: *Heparin 5000 units SQ TID (Preferred with Epidurals) *Enoxaparin/Lovenox 40 mg SQ daily (WT < 150 kg, CrCl > 30 mL/min) *Enoxaparin/Lovenox 30 mg SQ daily (WT < 150 kg, CrCl > 10-29 mL/min) *Enoxaparin/Lovenox 30 mg SQ BID (WT < 150 kg, CrCl > 30 mL/min) AND *Sequential Compression Device (SCD) Assessment and Plan Assessment and Plan Respiratory failure Underlying pneumonia - Broad-spectrum antibiotics - Panculture - Urine antigens - Follow-up cultures and de-escalate - DuoNeb scheduled and when necessary - IV steroids Acute kidney injury - Dehydration - IV fluids resuscitation - Strict I's and O's - Monitor trend of creatinine and electrolytes Metabolic acidosis - Severe - Due to above - Sodium bicarbonate drip - Frequent labs DVT GI prophylaxis - Teds SCDs - Subcutaneous heparin - Pepcid Critical Care: The total critical care time was 35 minutes. Time to perform other separately billable procedures was not included in the critical care time. Lance Peña MD Jan 30, 2018 7:00 pm
[2018-01-30] MEDS: methylPREDNISolone SOD SUCC 40 MG/1 ML VIAL IV PUSH SCH (19:47)
[2018-01-30] MEDS: ACETAMINOPHEN 325 MG TAB PO PRN (19:48)
[2018-01-30] MEDS ORDERED: VANCOMYCIN 1,000 MG/NS 250 ML IV ONE ×4 (20:15→21:00)
--- NOTE | 2018-01-30 20:31 | RADRPT ---
EXAM DATE/TIME: 01/30/2018 20:07 [facility] COMPARISON: CHEST SINGLE AP, January 30, 2018, 16:01. INDICATIONS : Shortness of breath. RADIATION DOSE: 16.22 CTDIvol (mGy) MEDICAL HISTORY : None SURGICAL HISTORY : Tubal ligation. Gastric bypass. ENCOUNTER: Initial ACUITY: 1 day PAIN SCALE: 0/10 LOCATION: Bilateral chest TECHNIQUE: Volumetric scanning of the chest was performed. Using automated exposure control and adjustment of t he mA and/or kV according to patient size, radiation dose was kept as low as reasonably achievable to obtain optimal diagnostic quality images. DICOM format image data is available electronically for r eview and comparison. Follow-up recommendations for detected pulmonary nodules are based at a minimum on nodule size and pa tient risk factors according to Fleischner Society Guidelines. FINDINGS: LUNGS: There is consolidation seen throughout the left lingula and left lower lobe. There is an area of cons olidation at the lateral inferior aspect of the right upper lobe abutting the minor fissure. There is patchy or consolidation in the right upper lobe with some minimal cavitary change. There small patch y areas of focal consolidation in the posterior inferior left upper lobe. PLEURAE: There is a mild pleural effusion. MEDIASTINUM: Normal-sized lymph nodes are seen. Adenopathy is not clearly identified. Minimal coronary calcificati ons are present. AXILLAE: Within normal limits. No lymphadenopathy. MUSCULOSKELETAL: Within normal limits for patient age. MISCELLANEOUS: The visualized upper abdominal organs demonstrate no acute abnormality. There is a surgical staple li ne around the upper stomach. There is a mild hiatal hernia. CONCLUSION: 1. Dense consolidation throughout the left lingula and left lower lobe. There is more patchy areas of consolidation in the upper lobes bilaterally. This pattern is most suggestive of inflammatory/infect ious processes. 2. Mild left pleural effusion. 3. Status post gastric surgery/bypass with a mild hiatal hernia. Michael Gabriel MD on January 30, 2018 at 20:24 Board Certified Radiologist. This report was verified electronically.
[2018-01-30] MEDS ORDERED: SODIUM BICARBONATE 8.4% INJ 150 MEQ in DEXTROSE 5% IN WATE 1000ML INJ 1,000 ML IV SCH ×2 (21:00)
[2018-01-30] MEDS: AZITHROMYCIN INJ 500 MG in SODIUM CHLOR 0.9% 250 ML INJ 250 ML IV SCH (21:00)
[2018-01-30] MEDS: DOCUSATE SODIUM 50 MG/SENNA 8.6 MG TAB PO SCH (21:00)
[2018-01-30] MEDS ORDERED: VANCOMYCIN INJ 2,000 MG in SODIUM CHLORID 0.9% 500 ML INJ 500 ML IV ONE (21:00)
[2018-01-30] MEDS: FAMOTIDINE 20 MG/2 ML VIAL IV PUSH SCH (21:35)
[2018-01-30] MEDS: SODIUM CHLORIDE 0.9% FLUSH 10 ML FLUSH IV FLUSH SCH (21:35)
[2018-01-30] MEDS: DEXTROSE 5% IV SCH ×2 (21:45)
[2018-01-30] MEDS: WATE IV SCH ×2 (21:45)
[2018-01-30] MEDS: SODIUM BICARBONATE IV SCH ×2 (21:45)
[2018-01-30] MEDS: HEPARIN SODIUM - SQ 10,000 UNITS/ML VIAL SQ SCH (23:02)
[2018-01-30] MEDS ORDERED: ETOMIDATE 40 MG/20 ML VIAL ONE (23:10)
[2018-01-30] MEDS ORDERED: SUCCINYLCHOLINE CHLORIDE 200 MG/10 ML VIAL ONE (23:11)
[2018-01-30] MEDS ORDERED: PROPOFOL 1000 MG/100 ML INJ 100 ML IV PRN (23:15)
[2018-01-30] MEDS ORDERED: MIDAZOLAM HCL 5 MG/ML VIAL (1 ML) ONE (23:36)
[2018-01-30] MEDS ORDERED: MIDAZOLAM HCL 5 MG/ML VIAL (1 ML) IV SCH (23:45)
[2018-01-30] MEDS: PROPOFOL 1000 MG/100 ML INJ 100 ML IV PRN (23:53)
[2018-01-31] VITALS (20 sets, daily range): BP systolic 92–124; BP diastolic 53–61; PULSE 90–108; RESP 14–21; TEMP 97.7–98.9; O2SAT 92–100
[2018-01-31] MEDS: MIDAZOLAM 100 MG/NS 100 ML DRIP Premix IV PRN ×2 (00:07→20:29)
[2018-01-31] MEDS: fentaNYL 2,500 MCG/NS 250 ML IV PRN ×2 (00:07→21:30)
--- NOTE | 2018-01-31 01:08 | PD.PROCEDR ---
Procedure Note Procedure Endotracheal Intubation A time-out was completed verifying correct patient, procedure, site, positioning , and special equipment if applicable. The patient was placed in a flat position. Sedation was obtained using Etomidate 20mg. The patient was easily ventilated using an ambu bag. The [employer]/ MAC 4 BLADE was used and inserted into the oropharynx at which time there was a Grade 1 view of the vocal cords. A 8-belarusian endotracheal tube was inserted and visualized going through the vocal cords. The stylette was removed. Colorimetric change was visualized on the CO2 meter. Breath sounds were heard in both lung guardado equally. The endotracheal tube was placed at 23 cm, measured at the teeth. A chest x-ray was ordered to assess for pneumothorax and verify endotrachealtube placement. Estimated Blood Loss: 0 The patient tolerated the procedure well and there were no complications. Lance Peña MD Jan 31, 2018 1:08 am
[2018-01-31] MEDS: PROPOFOL 1000 MG/100 ML INJ 100 ML IV PRN ×3 (01:41→10:12)
[2018-01-31 03:43] LABS: AUTOMATED NEUTROPHIL # 3.8 TH/MM3 (1.8-7.7); BASOPHIL % 0.2 % (0.0-2.0); EOSINOPHIL % 0.2 % (0.0-4.0); HEMATOCRIT 41.5 % (35.0-46.0); HEMOGLOBIN 13.3 GM/DL (11.6-15.3); LYMPH % 8.5 % (9.0-44.0); LYMPHOCYTE # 0.4 TH/MM3 (1.0-4.8); MEAN CELL VOLUME 87.9 FL (80.0-100.0); MEAN CORPUSCULAR HEMOGLOBIN 28.2 PG (27.0-34.0); MEAN CORPUSCULAR HGB CONC 32.1 % (32.0-36.0); MEAN PLATELET VOLUME 9.3 FL (7.0-11.0); MONO % 7.3 % (0.0-8.0); MONOCYTE # 0.3 TH/MM3 (0-0.9); NEUT % 83.8 % (16.0-70.0); PLATELET COUNT 210 TH/MM3 (150-450); RED BLOOD COUNT 4.72 MIL/MM3 (4.00-5.30); RED CELL DISTRIBUTION WIDTH 16.8 % (11.6-17.2); WHITE BLOOD COUNT 4.6 TH/MM3 (4.0-11.0)
[2018-01-31] MEDS: CHLORHEXIDINE GLUCONATE 2 % 1 PACK (2 CLOTHS) TOP SCH (03:45)
[2018-01-31] MEDS: SODIUM BICARBONATE IV SCH ×6 (03:45→15:42)
[2018-01-31] MEDS: DEXTROSE 5% IV SCH ×6 (03:45→15:42)
[2018-01-31] MEDS: WATE IV SCH ×6 (03:45→15:42)
[2018-01-31 03:49] LABS: PROTHROMBIN TIME - PATIENT 10.4 SEC (9.8-11.6)
[2018-01-31 04:01] LABS: ALKALINE PHOSPHATASE 154 U/L (45-117); ALT (GPT) 41 U/L (10-53); AST (GOT) 31 U/L (15-37); BICARBONATE 17.1 MEQ/L (21.0-32.0); BLOOD UREA NITROGEN 35 MG/DL (7-18); CALCIUM 7.9 MG/DL (8.5-10.1); CHLORIDE 112 MEQ/L (98-107); CREATININE 1.63 MG/DL (0.50-1.00); GLOMERULAR FILTRATION RATE 32 ML/MIN (>89); GLUCOSE,RANDOM 232 MG/DL (74-106); PHOSPHORUS 2.5 MG/DL (2.5-4.9); SODIUM (NA) 142 MEQ/L (136-145); TOTAL BILIRUBIN ADULT 0.9 MG/DL (0.2-1.0); TOTAL PROTEIN 6.5 GM/DL (6.4-8.2)
--- NOTE | 2018-01-31 04:58 | RADRPT ---
EXAM DATE/TIME: 01/31/2018 03:27 [facility] COMPARISON: CT THORAX W/O CONTRAST, January 30, 2018, 20:07. CHEST SINGLE AP, January 30, 2018, 16:01. INDICATIONS : Shortness of breath, possible pulmonary disease. MEDICAL HISTORY : None. SURGICAL HISTORY : None. ENCOUNTER: Subsequent ACUITY: 2 days PAIN SCORE: 0/10 LOCATION: Bilateral chest FINDINGS: A single view of the chest demonstrates worsening bilateral airspace disease. Moderate left pleural e ffusion which appears to extend to the left upper hemithorax. Cardiomegaly. Nasogastric tube and dist al esophagus. Endotracheal tube 3 cm above thiago. Osseous structures are intact. CONCLUSION: 1. Worsening diffuse bilateral airspace disease. 2. Moderate left pleural effusion which extends from the left upper hemithorax. 3. Nasogastric tube with tip in the distal esophagus. Karri Muhammad MD on January 31, 2018 at 4:54 Board Certified Radiologist. This report was verified electronically.
[2018-01-31] MEDS: RESP: ALBUTEROL 2.5 MG/IPRATROPIUM 0.5 MG NEB (SCH) INH ×4 (05:01→23:52)
[2018-01-31] MEDS: HEPARIN SODIUM - SQ 10,000 UNITS/ML VIAL SQ SCH ×3 (05:32→20:29)
[2018-01-31] MEDS: PIPERACIL-TAZO 2.25 GM PREMIX 50 ML IV SCH ×4 (06:00→17:02)
[2018-01-31 06:52] LABS: BANDS 23 % (0-6); LYMPHOCYTES 11 % (9-44); METAMYELOCYTES 2 % (0-1); MONOCYTES 8 % (0-8); NEUTROPHIL # MANUAL DIFF 3.7 TH/MM3 (1.8-7.7); POLYS (SEG NEUTROPHILS) 56 % (16-70)
[2018-01-31] MEDS: methylPREDNISolone SOD SUCC 40 MG/1 ML VIAL IV PUSH SCH ×2 (07:59→20:00)
[2018-01-31] MEDS: DOCUSATE SODIUM 50 MG/SENNA 8.6 MG TAB PO SCH ×2 (07:59→20:30)
[2018-01-31] MEDS: FAMOTIDINE 20 MG/2 ML VIAL IV PUSH SCH (07:59)
[2018-01-31] MEDS: CHLORHEXIDINE 0.12% (ORAL KIT) 15 ML CUP MT SCH ×2 (08:00→20:30)
[2018-01-31] MEDS: SODIUM CHLORIDE 0.9% FLUSH 10 ML FLUSH IV FLUSH SCH ×2 (08:02→20:30)
[2018-01-31 08:14] LABS: BILIRUBIN, URINE NEG (NEG); BLOOD, URINE MOD (NEG); GLUCOSE,URINE TRACE mg/dL (NEG); HYALINE CAST, URINE 1 /lpf (RARE); KETONE, URINE NEG (NEG); MUCUS URINE FEW /lpf (OCC); NITRITE,URINE NEG (NEG); PH, URINE 5.5 (5.0-8.5); SQUAMOUS EPITHELIAL CELL URINE 2 /hpf (0-5); URINE COLOR YELLOW (YELLW/STRAW); URINE LEUKOCYTE ESTERASE TRACE (NEG); WHITE BLOOD CELL CLUMPS RARE
--- NOTE | 2018-01-31 12:31 | EKG ---
Date Performed: 01/30/2018 Time Performed: 15:27:52 PTAGE: 62 years EKG: Sinus rhythm VOLTAGE CRITERIA FOR LVH ABNORMAL ECG PREVIOUS TRACING : 01/29/2018 11.13 Since the previous tracing, no significant change noted DOCTOR: Stephen Isaac Interpretating Date/Time 01/31/2018 12:31:26
--- NOTE | 2018-01-31 12:43 | HHI.CCPN ---
Subjective Remarks/Hospital Course 01/30: 62-year-old female presents for evaluation of increasing shortness of breath and chest pain. She reports 1 week of coughing 3 days of pain in her left chest which radiates to her back, which prompted the visit to the emergency room yesterday. She rates her pain a 6 out of 10. She reports fevers , chills, fatigue, mild nausea. She denies any abdominal pain, vomiting. Patient denies any significant past medical history. Symptom onset was gradual , symptom severity is severe, there are no alleviating factors. Patient states that she has been taking the azithromycin antibiotics that were prescribed to her. She denies any current or historical tobacco use. 01/31: Intubated at 1 AM this morning and placed on mechanical ventilation due to worsening respiratory distress. Currently sedated, orally intubated on mechanical ventilation. Objective Vital Signs Date Time Temp Pulse Resp B/P (MAP) Pulse Ox O2 Delivery O2 Flow Rate FiO2 01/31/18 12:02 94 45 01/31/18 11:46 98.2 01/31/18 08:00 90 21 92/57 (69) 01/31/18 08:00 Mechanical Ventilator 01/30/18 18:25 2.00 Intake and Output 01/31/18 01/31/18 02/01/18 08:00 16:00 00:00 Intake Total 875 ml Output Total 700 ml Balance 175 ml Result Diagram: 01/31/18 0324 01/31/18 0542 Other Results Microbiology Date/Time Source Procedure Growth Status 01/31/18 06:25 Nasal Washing Influenza Types A,B Antigen (MYLENE) - Final NEGATIVE FOR FLU A AND B ANTIGEN.... Complete 01/30/18 23:40 Urine Catheterized Urine Legionella Antigen - Final PRESUMPTIVE NEGATIVE FOR LEGIONELLA P... Complete 01/30/18 23:40 Urine Catheterized Urine Streptococcus pneumoniae Antigen (M - Final PRESUMPTIVE NEGATIVE FOR STREPTOCOCCU... Complete Laboratory Tests Test 01/30/18 18:07 01/31/18 01:30 Blood Gas Puncture Site RT RADIAL RT RADIAL Blood Gas Patient Temperature 98.6 98.6 Blood Gas HCO3 10 mmol/L (22-26) 16 mmol/L (22-26) Blood Gas Base Excess -14.5 mmol/L (-2-2) -9.9 mmol/L (-2-2) Blood Gas Oxygen Saturation 88 % (90-100) 97 % (90-100) Arterial Blood pH 7.33 (7.380-7.420) 7.26 (7.380-7.420) Arterial Blood Partial Pressure CO2 20 mmHg (38-42) 36 mmHg (38-42) Arterial Blood Partial Pressure O2 64 mmHG (61-120) 229 mmHg (61-120) Arterial Blood Oxygen Content 16.5 Vol % (12.0-20.0) 17.6 Vol % (12.0-20.0) Arterial Blood Carboxyhemoglobin 0.8 % (0-4) 0.2 % (0-4) Arterial Blood Methemoglobin 0.7 % (0-2) 1.3 % (0-2) Blood Gas Hemoglobin 13.3 G/DL (12.0-16.0) 12.5 G/DL (12.0-16.0) Oxygen Delivery Device NASAL CANNULA VENTILATOR Blood Gas Liter Flow 2 L/M Blood Gas Ventilator Setting PRVC/AC Blood Gas Inspired Oxygen 100 % Imaging Last 24 hours Impressions Chest X-Ray 01/30/18 1556 Signed Impressions: Service Date/Time: Tuesday, January 30, 2018 16:01 - CONCLUSION: 1. Bilateral airspace disease with significant consolidation in the left base. 2. Elevated left hemidiaphragm versus eventration. Ramon Blunt MD Chest CT 01/30/18 0000 Signed Impressions: Service Date/Time: Tuesday, January 30, 2018 20:07 - CONCLUSION: 1. Dense consolidation throughout the left lingula and left lower lobe. There is more patchy areas of consolidation in the upper lobes bilaterally. This pattern is most suggestive of inflammatory/infectious processes. 2. Mild left pleural effusion. 3. Status post gastric surgery/bypass with a mild hiatal hernia. Michael Gabriel MD Objective Remarks HEENT/ Neuro: Sedated, orally intubated, Pallor present, no icterus, tongue/ mucosa moist Neck: No JVD Chest/Pulm: on mech vent, air entry decreased bilaterally at bases especially on left, scattered rhonchi more on the left CVS: S1-S2 regular, no murmur GI/abdomen: soft, nontender, bowel sounds sluggish Extremities: warm bilaterally, no edema A/P Assessment and Plan Respiratory failure Underlying pneumonia Sepsis - Broad-spectrum antibiotics - Panculture -Legionella and strep pneumo antigen negative -Consulted ID for sepsis/pneumonia - Follow-up cultures and de-escalate - DuoNeb scheduled and when necessary - IV steroids Acute kidney injury - Dehydration - IV fluids resuscitation - Strict I's and O's - Monitor trend of creatinine and electrolytes Metabolic acidosis - Severe - Due to above - Sodium bicarbonate drip DVT GI prophylaxis - Teds SCDs - Subcutaneous heparin - Pepcid Critical Care: The total critical care time was 35 minutes. Time to perform other separately billable procedures was not included in the critical care time. Luis Felipe Choe MD Jan 31, 2018 12:43
[2018-01-31] MEDS ORDERED: fentaNYL CITRATE 250 MCG/5 ML AMP IV ONE (13:00)
[2018-01-31] MEDS ORDERED: MIDAZOLAM HCL 5 MG/5 ML VIAL IV ONE (13:00)
[2018-01-31] MEDS ORDERED: ROCURONIUM INJ 50 MG/5 ML VIAL IV ONE (13:00)
[2018-01-31] MEDS ORDERED: LINEZOLID 600 MG PREMIX 300 ML IV STA (13:21)
--- NOTE | 2018-01-31 14:12 | PD.PROCEDR ---
Procedure Note Procedure Procedure: fiberoptic bronchoscopy for bronchoscopy/ BAL Indication: Pulmonary toilet and obtaining BAL for gm stain and C/s. Operators: Dr. Luis Felipe Choe Informed consent obtained from family and documented in chart Anesthesia used Versed 10 mg IV, Fentanyl 200mcg IV, Rocuronium 10 mg IV for neuromuscular blockade. Procedure: Patient was placed on 100% oxygen via ET tube/mechanical ventilator. After ensuring adequate sedation/analgesia/ neuromuscular blockade, fiberoptic bronchoscope was inserted via adapter on ET tube and advanced into the trachea upto the thiago. Mucosa with patchy erythematous areas throughout . Bronchoscope was advanced into the right mainstem bronchus and right sided airways. Minimal amount of mucus was suctioned out. Subsequently bronchoscope was withdrawn and advanced down left-sided airways and BAL was performed with moderate mucus/secretions suctioned out of however no major mucous plugs noted. Specimen was collected for Gram stain and culture. Patient tolerated the procedure well with no immediate complications noted. Post procedure CXR ordered and was pending. Will f/u when available. Luis Felipe Choe MD Jan 31, 2018 14:12
[2018-01-31] MEDS ORDERED: SODIUM CHLOR 0.9% 1000 ML INJ 1,000 ML IV ONE (14:15)
--- NOTE | 2018-01-31 15:02 | RADRPT ---
EXAM DATE/TIME: 01/31/2018 14:13 [facility] COMPARISON: CHEST SINGLE AP, January 31, 2018, 3:27. INDICATIONS : Post bronchoscopy. MEDICAL HISTORY : pneumonia. SURGICAL HISTORY : Tubal ligation. ENCOUNTER: Initial ACUITY: 2 days PAIN SCORE: Non-responsive. LOCATION: Bilateral chest FINDINGS: Status post bronchoscopy. No evidence of pneumothorax. There continue to be diffuse scattered interst itial and airspace pulmonary infiltrates of both lung guardado. Endotracheal tube and NG tube are in go od position. No significant changes compared to the prior study. CONCLUSION: Status post bronchoscopy. No evidence of pneumothorax. Joni Swain MD on January 31, 2018 at 14:59 Board Certified Radiologist. This report was verified electronically.
--- NOTE | 2018-01-31 15:14 | PD.ID.CON ---
History of Present Illness Service ID Consult Requested By Dr Avel Choe Reason for Consult PNA, MRSA Primary Care Physician No Primary Care Physician Diagnoses: History of Present Illness pt seem examined full note to follow 62 yo female w/o significant past medicxal history presented 2 days ago with chest pain, CXR showed L lung basilar infiltrate shew was discharged with abx ( azithromycin) SHe came back with worsning SOB and was admitted and intubated, placed on vent She was sarted on broad spectrum abx: initially azithro, zosyn, vanco She grew out MRSA in 2/2 blood cultures, sputum with GPC in clusters imaging studies showed progression of infiltrates Vancomycin was switched to zyvox WBC elevated with 23 % of bands flu/ pneumococcus/ legionella negative Review of Systems ROS Limitations: Intubated, Altered Mental Status, Unresponsive Past Family Social History Allergies: Coded Allergies: No Known Allergies (Unverified , 01/30/18) Past Medical History unremarkable Past Surgical History gastric bypass tonsillectomy Active Ordered Medications Medications where reviewed in EMR Antibiotics Include: linezolid azithro Family History reviewed Non contriutory to current ID issue Social History No Tobacco. + ETOH 4-5 days/wk No Illicit Drugs. Physical Exam Vital Signs Vital Signs Date Time Temp Pulse Resp B/P (MAP) Pulse Ox O2 Delivery O2 Flow Rate FiO2 01/31/18 14:16 97 100 01/31/18 12:02 94 45 01/31/18 12:00 98.2 93 16 107/56 (73) 94 01/31/18 11:46 98.2 01/31/18 10:13 45 01/31/18 08:36 96 45 01/31/18 08:00 98.4 90 21 92/57 (69) 97 01/31/18 08:00 Mechanical Ventilator 50 01/31/18 06:00 97 01/31/18 04:55 96 50 01/31/18 04:00 50 01/31/18 04:00 93 01/31/18 04:00 98.2 93 21 93/56 (68) 96 01/31/18 02:00 96 01/31/18 01:18 100 100 01/31/18 00:00 100 01/31/18 00:00 98.8 108 20 107/61 (76) 100 01/31/18 00:00 108 01/30/18 23:35 100 100 01/30/18 22:40 100 Bi-Pap 80 01/30/18 22:39 98.5 112 35 207/91 (129) 100 01/30/18 22:18 01/30/18 22:18 100 100 01/30/18 21:05 111 36 190/77 (114) 100 BiPAP 100 01/30/18 20:48 34 01/30/18 20:32 72 16 104/59 (74) 96 Room Air 01/30/18 20:27 110 30 180/77 (111) 100 BiPAP 100 01/30/18 18:28 100 100 01/30/18 18:25 97.5 110 40 170/89 (116) 94 Nasal Cannula 2.00 01/30/18 16:05 Nasal Cannula 2.00 01/30/18 16:05 Nasal Cannula 2.00 01/30/18 16:05 90 Room Air 01/30/18 16:00 108 39 156/74 (101) 100 Nasal Cannula 2.00 01/30/18 15:51 107 36 156/76 (102) 90 Room Air Physical Exam CONSTITUTIONAL/GENERAL: This is an adequately nourished patient, in no apparent distress. TUBES/LINES/DRAINS: SKIN: No jaundice, rashes, or lesions. Ecchymoses on upper extremities. No wounds seen anteriorly. Skin temperature appropriate. Not diaphoretic. HEAD: Atraumatic. Normocephalic. EYES: Pupils equal and round and reactive. Extraocular motions intact. No scleral icterus. No injection or drainage. Fundi not examined. ENT: Hearing grossly normal. Nose without bleeding or purulent drainage. Throat without visible erythema, exudates, masses, or lesions. NECK: Trachea midline. Supple, nontender. No palpable thyroid enlargement or nodularity. CARDIOVASCULAR: Regular rate and rhythm without murmurs, gallops, or rubs. No JVD. Peripheral pulses symmetric. RESPIRATORY/CHEST: Symmetric, unlabored respirations. Reduced BS and exrensive rhonchi and crackles on the L lung field to auscultation. Breath sounds equal bilaterally. GASTROINTESTINAL: Abdomen soft, non-tender, nondistended. No hepato-splenomegaly , or palpable masses. No guarding. Bowel sounds present. GENITOURINARY: Without palpable bladder distension. Alexandre catheter in place. MUSCULOSKELETAL: Extremities without clubbing, cyanosis, or edema. No joint tenderness or effusion noted. No calf tenderness. No mottling or clubbing. LYMPHATICS: No palpable cervical or supraclavicular adenopathy. NEUROLOGICAL: sedatd, paralysed. just after intubation PSYCHIATRIC: unable to assess Laboratory Laboratory Tests Test 01/30/18 16:00 01/30/18 16:05 01/30/18 18:07 01/30/18 19:48 White Blood Count 13.1 Red Blood Count 4.91 Hemoglobin 13.6 Hematocrit 42.0 Mean Corpuscular Volume 85.5 Mean Corpuscular Hemoglobin 27.6 Mean Corpuscular Hemoglobin Concent 32.3 Red Cell Distribution Width 16.8 Platelet Count 245 Mean Platelet Volume 9.1 Neutrophils (%) (Auto) 88.9 Lymphocytes (%) (Auto) 4.5 Monocytes (%) (Auto) 6.6 Eosinophils (%) (Auto) 0.0 Basophils (%) (Auto) 0.0 Neutrophils # (Auto) 11.7 Lymphocytes # (Auto) 0.6 Monocytes # (Auto) 0.9 Eosinophils # (Auto) 0.0 Basophils # (Auto) 0.0 CBC Comment AUTO DIFF Differential Total Cells Counted 100 Neutrophils % (Manual) 69 Band Neutrophils % 23 Lymphocytes % 2 Monocytes % 6 Neutrophils # (Manual) 12.1 Differential Comment FINAL DIFF MANUAL Toxic Granulation 1+ Dohle Bodies PRESENT Platelet Estimate NORMAL Platelet Morphology Comment NORMAL Prothrombin Time 10.7 Prothromb Time International Ratio 1.1 Activated Partial Thromboplast Time 29.4 Blood Urea Nitrogen 44 Creatinine 2.83 Random Glucose 169 Total Protein 8.5 Albumin 2.8 Calcium Level 9.4 Magnesium Level 2.1 Alkaline Phosphatase 247 Aspartate Amino Transf (AST/SGOT) 53 Alanine Aminotransferase (ALT/SGPT) 56 Total Bilirubin 0.8 Sodium Level 134 Potassium Level 4.3 Chloride Level 101 Carbon Dioxide Level 18.1 Anion Gap 15 Estimat Glomerular Filtration Rate 17 Total Creatine Kinase 82 Troponin I LESS THAN 0.02 Lactic Acid Level 3.5 7.9 Blood Gas Puncture Site RT RADIAL Blood Gas Patient Temperature 98.6 Blood Gas HCO3 10 Blood Gas Base Excess -14.5 Blood Gas Oxygen Saturation 88 Arterial Blood pH 7.33 Arterial Blood Partial Pressure CO2 20 Arterial Blood Partial Pressure O2 64 Arterial Blood Oxygen Content 16.5 Arterial Blood Carboxyhemoglobin 0.8 Arterial Blood Methemoglobin 0.7 Blood Gas Hemoglobin 13.3 Oxygen Delivery Device NASAL CANNULA Blood Gas Liter Flow 2 Test 01/30/18 22:55 01/31/18 01:30 01/31/18 03:24 01/31/18 05:42 Nasal Screen MRSA (PCR) MRSA DETECTED Blood Gas Puncture Site RT RADIAL Blood Gas Patient Temperature 98.6 Blood Gas HCO3 16 Blood Gas Base Excess -9.9 Blood Gas Oxygen Saturation 97 Arterial Blood pH 7.26 Arterial Blood Partial Pressure CO2 36 Arterial Blood Partial Pressure O2 229 Arterial Blood Oxygen Content 17.6 Arterial Blood Carboxyhemoglobin 0.2 Arterial Blood Methemoglobin 1.3 Blood Gas Hemoglobin 12.5 Oxygen Delivery Device VENTILATOR Blood Gas Ventilator Setting PRVC/AC Blood Gas Inspired Oxygen 100 White Blood Count 4.6 Red Blood Count 4.72 Hemoglobin 13.3 Hematocrit 41.5 Mean Corpuscular Volume 87.9 Mean Corpuscular Hemoglobin 28.2 Mean Corpuscular Hemoglobin Concent 32.1 Red Cell Distribution Width 16.8 Platelet Count 210 Mean Platelet Volume 9.3 Neutrophils (%) (Auto) 83.8 Lymphocytes (%) (Auto) 8.5 Monocytes (%) (Auto) 7.3 Eosinophils (%) (Auto) 0.2 Basophils (%) (Auto) 0.2 Neutrophils # (Auto) 3.8 Lymphocytes # (Auto) 0.4 Monocytes # (Auto) 0.3 Eosinophils # (Auto) 0.0 Basophils # (Auto) 0.0 CBC Comment AUTO DIFF Differential Total Cells Counted 100 Neutrophils % (Manual) 56 Band Neutrophils % 23 Lymphocytes % 11 Monocytes % 8 Neutrophils # (Manual) 3.7 Metamyelocytes 2 Differential Comment FINAL DIFF MANUAL Platelet Estimate NORMAL Platelet Morphology Comment NORMAL Red Cell Morphology Comment NORMAL Prothrombin Time 10.4 Prothromb Time International Ratio 1.0 Activated Partial Thromboplast Time 29.0 Blood Urea Nitrogen 35 Creatinine 1.63 Random Glucose 232 Total Protein 6.5 Albumin 2.0 Calcium Level 7.9 Phosphorus Level 2.5 Magnesium Level 2.0 Alkaline Phosphatase 154 Aspartate Amino Transf (AST/SGOT) 31 Alanine Aminotransferase (ALT/SGPT) 41 Total Bilirubin 0.9 Sodium Level 142 143 Potassium Level 3.6 Chloride Level 112 Carbon Dioxide Level 17.1 Anion Gap 13 Estimat Glomerular Filtration Rate 32 Lactic Acid Level 4.9 Test 01/31/18 07:42 Urine Color YELLOW Urine Turbidity HAZY Urine pH 5.5 Urine Specific [place] 1.022 Urine Protein 30 Urine Glucose (UA) TRACE Urine Ketones NEG Urine Occult Blood MOD Urine Nitrite NEG Urine Bilirubin NEG Urine Urobilinogen LESS THAN 2.0 Urine Leukocyte Esterase TRACE Urine RBC 2 Urine WBC 13 Urine WBC Clumps RARE Urine Squamous Epithelial Cells 2 Urine Hyaline Casts 1 Urine Mucus FEW Microscopic Urinalysis Comment CATH-CULTURE IND Urine Random Creatinine 139.4 Date/Time Source Procedure Growth Status 01/30/18 16:05 Blood Peripheral Aerobic Blood Culture - Preliminary NO GROWTH IN 1 DAY Resulted 01/30/18 16:05 Anaerobic Blood Culture - Preliminary Gram Positive Cocci Resulted 01/31/18 06:25 Nasal Washing Influenza Types A,B Antigen (MYLENE) - Final NEGATIVE FOR FLU A AND B ANTIGEN.... Complete 01/31/18 07:42 Urine Catheterized Urine Urine Culture Pending Received Result Diagram: 01/31/18 0324 01/31/18 0542 Imaging Last Impressions Chest X-Ray 01/31/18 0000 Signed Impressions: Service Date/Time: January 03:27 - CONCLUSION: 1. Worsening diffuse bilateral airspace disease. 2. Moderate left pleural effusion which extends from the left upper hemithorax. 3. Nasogastric tube with tip in the distal esophagus. Karri Muhammad MD Chest CT 01/30/18 0000 Signed Impressions: Service Date/Time: Tuesday, January 30, 2018 20:07 - CONCLUSION: 1. Dense consolidation throughout the left lingula and left lower lobe. There is more patchy areas of consolidation in the upper lobes bilaterally. This pattern is most suggestive of inflammatory/infectious processes. 2. Mild left pleural effusion. 3. Status post gastric surgery/bypass with a mild hiatal hernia. Michael Gabriel MD Assessment and Plan Assessment and Plan MRSA PNA Acute VDRF cont zyvox dc zosyn fu sputum and blood clx untill final Carlene Singleton MD Jan 31, 2018 15:14
[2018-01-31 16:24] LABS: ALBUMIN 1.6 GM/DL (3.4-5.0); ALT (GPT) 34 U/L (10-53); AST (GOT) 34 U/L (15-37); BICARBONATE 24.6 MEQ/L (21.0-32.0); BLOOD UREA NITROGEN 32 MG/DL (7-18); CALCIUM 7.7 MG/DL (8.5-10.1); CHLORIDE 109 MEQ/L (98-107); CREATININE 1.19 MG/DL (0.50-1.00); GLOMERULAR FILTRATION RATE 46 ML/MIN (>89); GLUCOSE,RANDOM 247 MG/DL (74-106); SODIUM (NA) 142 MEQ/L (136-145)
[2018-01-31 16:27] LABS: ALKALINE PHOSPHATASE 119 U/L (45-117); TOTAL PROTEIN 5.8 GM/DL (6.4-8.2)
[2018-01-31] MEDS ORDERED: POTASSIUM CHLORIDE 20 MEQ PWD PACKET PO ONE (18:00)
[2018-01-31] MEDS: LOW DOSE INSULIN NOVOLIN REGULAR SUPPLEMENTAL SCALE SQ SCH (18:00)
[2018-01-31] MEDS ORDERED: DEXTROSE 50% IN WATER 50 ML VIAL(D50) IV PUSH PRN (18:15)
[2018-01-31] MEDS ORDERED: GLUCAGON 1 MG/ML VIAL OTHER PRN (18:15)
[2018-01-31] MEDS: AZITHROMYCIN INJ 500 MG in SODIUM CHLOR 0.9% 250 ML INJ 250 ML IV SCH (20:29)
[2018-01-31] MEDS: SODIUM BICARBONATE 8.4% INJ 150 MEQ in DEXTROSE 5% IN WATE 1000ML INJ 1,000 ML IV SCH ×2 (20:30)
[2018-01-31] MEDS: FAMOTIDINE 20 MG TAB PO SCH (20:30)
[2018-01-31] MEDS ORDERED: VANCOMYCIN INJ 2,000 MG in SODIUM CHLORID 0.9% 500 ML INJ 500 ML IV SCH (21:00)
[2018-02-01] VITALS (25 sets, daily range): BP systolic 88–118; BP diastolic 50–64; PULSE 79–140; RESP 14–28; TEMP 97.5–98.8; O2SAT 92–96
[2018-02-01] MEDS: LINEZOLID 600 MG PREMIX 300 ML IV SCH ×3 (00:04→23:43)
[2018-02-01] MEDS: PIPERACIL-TAZO 2.25 GM PREMIX 50 ML IV SCH (00:04)
[2018-02-01] MEDS: RESP: ALBUTEROL 2.5 MG/IPRATROPIUM 0.5 MG NEB (SCH) INH ×4 (04:00→20:56)
[2018-02-01] MEDS: CHLORHEXIDINE GLUCONATE 2 % 1 PACK (2 CLOTHS) TOP SCH (04:00)
[2018-02-01 05:52] LABS: AUTOMATED NEUTROPHIL # 7.7 TH/MM3 (1.8-7.7); BASOPHIL % 0.1 % (0.0-2.0); HEMATOCRIT 33.6 % (35.0-46.0); HEMOGLOBIN 10.9 GM/DL (11.6-15.3); LYMPH % 3.8 % (9.0-44.0); LYMPHOCYTE # 0.3 TH/MM3 (1.0-4.8); MEAN CELL VOLUME 85.3 FL (80.0-100.0); MEAN CORPUSCULAR HEMOGLOBIN 27.7 PG (27.0-34.0); MEAN CORPUSCULAR HGB CONC 32.4 % (32.0-36.0); MEAN PLATELET VOLUME 8.9 FL (7.0-11.0); MONO % 3.2 % (0.0-8.0); MONOCYTE # 0.3 TH/MM3 (0-0.9); NEUT % 92.9 % (16.0-70.0); PLATELET COUNT 205 TH/MM3 (150-450); RED BLOOD COUNT 3.93 MIL/MM3 (4.00-5.30); RED CELL DISTRIBUTION WIDTH 16.6 % (11.6-17.2); WHITE BLOOD COUNT 8.3 TH/MM3 (4.0-11.0)
--- NOTE | 2018-02-01 05:56 | RADRPT ---
EXAM DATE/TIME: 02/01/2018 04:48 [facility] COMPARISON: CT THORAX W/O CONTRAST, January 30, 2018, 20:07. CHEST SINGLE AP, January 31, 2018, 14:13. INDICATIONS : Follow up pneumonia. MEDICAL HISTORY : Pneumonia. SURGICAL HISTORY : Tubal ligation. ENCOUNTER: Subsequent ACUITY: 4 - 6 days PAIN SCORE: Non-responsive. LOCATION: chest FINDINGS: Consolidation in the right upper lobe and left base again noted and not significantly changed. Small left pleural effusion suspected, also probably unchanged. No pneumothorax seen. Heart size stable and within normal limits. Endotracheal tube tip is approximately 1.7 cm above the thiago. Nasogastric tube courses into the sto mach. CONCLUSION: Bilateral pneumonia not significantly changed, upper lobe predominant on the right and basilar predom inant on the left. Endotracheal tube tip approximately 1.7 cm above the thiago which is lower than ye day. Michael Espinoza MD on February 01, 2018 at 5:53 Board Certified Radiologist. This report was verified electronically.
[2018-02-01] MEDS: LOW DOSE INSULIN NOVOLIN REGULAR SUPPLEMENTAL SCALE SQ SCH ×5 (06:00→23:42)
[2018-02-01] MEDS: HEPARIN SODIUM - SQ 10,000 UNITS/ML VIAL SQ SCH ×3 (06:00→20:33)
[2018-02-01] MEDS ORDERED: OSELTAMIVIR PHOSPHATE 6 MG/ML 60 ML SUSP OG-TUBE STA (06:40)
[2018-02-01 06:51] LABS: BANDS 25 % (0-6); DOHLE BODIES PRESENT (NONE SEEN); LYMPHOCYTES 4 % (9-44); METAMYELOCYTES 11 % (0-1); MONOCYTES 6 % (0-8); NEUTROPHIL # MANUAL DIFF 7.5 TH/MM3 (1.8-7.7); POLYS (SEG NEUTROPHILS) 54 % (16-70); TOXIC GRANULATION 1+ (NORMAL); TOXIC VACUOLATION PRESENT (NONE SEEN)
[2018-02-01] MEDS ORDERED: AMIODARONE INJ 150 MG in DEXTROSE 5% IN WATER 100ML INJ 97 ML IV ONE ×2 (06:51)
[2018-02-01] MEDS ORDERED: AMIODARONE INJ 450 MG in DEXTROSE 5% IN WATE(EXCEL) INJ 241 ML IV PRN ×2 (07:01)
[2018-02-01] MEDS: SODIUM BICARBONATE 8.4% INJ 150 MEQ in DEXTROSE 5% IN WATE 1000ML INJ 1,000 ML IV SCH ×2 (07:25)
[2018-02-01] MEDS: SODIUM CHLORIDE 0.9% FLUSH 10 ML FLUSH IV FLUSH SCH ×2 (07:37→20:32)
[2018-02-01] MEDS: FAMOTIDINE 20 MG TAB PO SCH ×2 (07:37→20:32)
[2018-02-01] MEDS: CHLORHEXIDINE 0.12% (ORAL KIT) 15 ML CUP MT SCH ×2 (07:37→20:32)
[2018-02-01] MEDS: DOCUSATE SODIUM 50 MG/SENNA 8.6 MG TAB PO SCH ×2 (07:37→20:32)
[2018-02-01] MEDS: methylPREDNISolone SOD SUCC 40 MG/1 ML VIAL IV PUSH SCH ×2 (07:37→20:32)
[2018-02-01] MEDS ORDERED: DIGOXIN 0.5 MG/2 ML VIAL IV PUSH ONE (08:15)
[2018-02-01] MEDS: AMIODARONE INJ 450 MG in SODIUM CHLOR 0.9% (EXCEL) INJ 241 ML IV PRN ×2 (08:35→17:55)
[2018-02-01] MEDS: fentaNYL 2,500 MCG/NS 250 ML IV PRN ×2 (09:46→22:49)
--- NOTE | 2018-02-01 11:29 | HHI.CCPN ---
Subjective Remarks/Hospital Course 01/30: 62-year-old female presents for evaluation of increasing shortness of breath and chest pain. She reports 1 week of coughing 3 days of pain in her left chest which radiates to her back, which prompted the visit to the emergency room yesterday. She rates her pain a 6 out of 10. She reports fevers , chills, fatigue, mild nausea. She denies any abdominal pain, vomiting. Patient denies any significant past medical history. Symptom onset was gradual , symptom severity is severe, there are no alleviating factors. Patient states that she has been taking the azithromycin antibiotics that were prescribed to her. She denies any current or historical tobacco use. 01/31: Intubated at 1 AM this morning and placed on mechanical ventilation due to worsening respiratory distress. Currently sedated, orally intubated on mechanical ventilation. 02/01: Remains sedated, orally intubated on mechanical ventilation. Went into A. fib with RVR this morning. Loaded with amiodarone, started on amiodarone drip and given digoxin 0.5 mg IV Objective Vital Signs Date Time Temp Pulse Resp B/P (MAP) Pulse Ox O2 Delivery O2 Flow Rate FiO2 02/01/18 10:00 103 02/01/18 09:53 94 50 02/01/18 08:35 103/59 02/01/18 08:30 14 02/01/18 08:00 Mechanical Ventilator 02/01/18 07:35 98.6 01/30/18 18:25 2.00 Intake and Output 02/01/18 02/01/18 02/02/18 08:00 16:00 00:00 Intake Total 650 ml Output Total 700 ml 200 ml Balance -50 ml -200 ml Result Diagram: 02/01/18 0508 01/31/18 1530 Other Results Microbiology Date/Time Source Procedure Growth Status 01/31/18 06:25 Nasal Washing Influenza Types A,B Antigen (MYLENE) - Final NEGATIVE FOR FLU A AND B ANTIGEN.... Complete 01/30/18 23:40 Urine Catheterized Urine Legionella Antigen - Final PRESUMPTIVE NEGATIVE FOR LEGIONELLA P... Complete 01/30/18 23:40 Urine Catheterized Urine Streptococcus pneumoniae Antigen (M - Final PRESUMPTIVE NEGATIVE FOR STREPTOCOCCU... Complete Laboratory Tests Test 02/01/18 08:50 Blood Gas Puncture Site LT RADIAL Blood Gas Patient Temperature 98.6 Blood Gas HCO3 29 mmol/L (22-26) Blood Gas Base Excess 3.1 mmol/L (-2-2) Blood Gas Oxygen Saturation 95 % (90-100) Arterial Blood pH 7.29 (7.380-7.420) Arterial Blood Partial Pressure CO2 62 mmHg (38-42) Arterial Blood Partial Pressure O2 100 mmHg (61-120) Arterial Blood Oxygen Content 16.1 Vol % (12.0-20.0) Arterial Blood Carboxyhemoglobin 0.6 % (0-4) Arterial Blood Methemoglobin 1.4 % (0-2) Blood Gas Hemoglobin 12.0 G/DL (12.0-16.0) Oxygen Delivery Device VENTILATOR Blood Gas Ventilator Setting Blood Gas Inspired Oxygen 50 % Imaging Last 24 hours Impressions Chest X-Ray 01/30/18 1556 Signed Impressions: Service Date/Time: Tuesday, January 30, 2018 16:01 - CONCLUSION: 1. Bilateral airspace disease with significant consolidation in the left base. 2. Elevated left hemidiaphragm versus eventration. Ramon Blunt MD Chest CT 01/30/18 0000 Signed Impressions: Service Date/Time: Tuesday, January 30, 2018 20:07 - CONCLUSION: 1. Dense consolidation throughout the left lingula and left lower lobe. There is more patchy areas of consolidation in the upper lobes bilaterally. This pattern is most suggestive of inflammatory/infectious processes. 2. Mild left pleural effusion. 3. Status post gastric surgery/bypass with a mild hiatal hernia. Michael Gabriel MD Objective Remarks HEENT/ Neuro: Sedated, orally intubated, Pallor present, no icterus, tongue/ mucosa moist Neck: No JVD Chest/Pulm: on mech vent, air entry decreased bilaterally at bases especially on left, scattered rhonchi bilaterally CVS: S1-S2 irregularly irregular, no murmur GI/abdomen: soft, nontender, bowel sounds sluggish Extremities: warm bilaterally, bilateral edema A/P Assessment and Plan Respiratory failure Underlying pneumonia Sepsis - Broad-spectrum antibiotics - Panculture -Legionella and strep pneumo antigen negative -Consulted ID for sepsis/pneumonia - Follow-up cultures and de-escalate - DuoNeb scheduled and when necessary - IV steroids Acute kidney injury - Dehydration - IV fluids resuscitation - Strict I's and O's - Monitor trend of creatinine and electrolytes Metabolic acidosis - Severe - Due to above - Sodium bicarbonate drip A. fib with RVR - Amiodarone 150 mg IV bolus followed by drip. Digoxin 0.5 mg IV stat. - Follow troponin. DVT GI prophylaxis - Teds SCDs - Subcutaneous heparin - Pepcid Critical Care: The total critical care time was 35 minutes. Time to perform other separately billable procedures was not included in the critical care time. Luis Felipe Choe MD Feb 01, 2018 11:29
[2018-02-01 13:48] LABS: ALBUMIN 1.4 GM/DL (3.4-5.0); ALKALINE PHOSPHATASE 114 U/L (45-117); ALT (GPT) 31 U/L (10-53); AST (GOT) 37 U/L (15-37); BICARBONATE 29.5 MEQ/L (21.0-32.0); BLOOD UREA NITROGEN 35 MG/DL (7-18); CALCIUM 7.8 MG/DL (8.5-10.1); CHLORIDE 103 MEQ/L (98-107); CREATININE 1.28 MG/DL (0.50-1.00); GLOMERULAR FILTRATION RATE 42 ML/MIN (>89); GLUCOSE,RANDOM 218 MG/DL (74-106); SODIUM (NA) 141 MEQ/L (136-145); TOTAL BILIRUBIN ADULT 0.9 MG/DL (0.2-1.0); TOTAL PROTEIN 5.8 GM/DL (6.4-8.2)
--- NOTE | 2018-02-01 13:56 | ECHRPT ---
Indication: LV function, Endocarditis CONCLUSIONS The left ventricular systolic function is normal with an estimated ejection fraction in the range of 55-60%. Wall thickness is normal. Normal left ventricular size. The left atrial size is mildly dilated. Mild thickening of the mitral valve leaflets. Trace mitral valve regurgitation. Mild thickening of the aortic valve leaflets. There is mild tricuspid valve regurgitation. The estimated pulmonary arterial pressure is 35.2 mmHg. BP: 92 / 57 HR: 93 Rhythm: Atrial fibrillation MEASUREMENTS (Male / Female) Normal Values Technical Quality:Fair 2D ECHO LV Diastolic Diameter PLAX 4.4 cm 4.2 - 5.9 / 3.9 - 5.3 cm LV Systolic Diameter PLAX 3.2 cm IVS Diastolic Thickness 1.0 cm 0.6 - 1.0 / 0.6 - 0.9 cm LVPW Diastolic Thickness 1.0 cm 0.6 - 1.0 / 0.6 - 0.9 cm LV Relative Wall Thickness 0.5 RV Internal Dim ED PLAX 2.9 cm LVOT Diameter 2.1 cm LA Systolic Diameter LX 4.2 cm 3.0 - 4.0 / 2.7 - 3.8 cm M-MODE Aortic Root Diameter MM 2.9 cm LA Systolic Diameter MM 4.3 cm LA Ao Ratio MM 1.5 AV Cusp Separation MM 1.8 cm DOPPLER AV Peak Velocity 195.0 cm/s AV Peak Gradient 15.2 mmHg LVOT Peak Velocity 98.7 cm/s LVOT Peak Gradient 3.9 mmHg AV Area Cont Eq pk 1.8 cm MV Area PHT 4.0 cm Mitral E Point Velocity 108.0 cm/s Mitral A Point Velocity 46.9 cm/s Mitral E to A Ratio 2.3 LV E' Lateral Velocity 12.5 cm/s Mitral E to LV E' Lateral Ratio 8.6 LV E' Septal Velocity 11.6 cm/s Mitral E to LV E' Septal Ratio 9.3 TR Peak Velocity 251.0 cm/s TR Peak Gradient 25.2 mmHg Right Atrial Pressure 10.0 mmHg Pulmonary Artery Systolic Pressu 35.2 mmHg Right Ventricular Systolic Press 35.2 mmHg FINDINGS LEFT VENTRICLE The left ventricular systolic function is normal with an estimated ejection fraction in the range of 55-60%. Wall thickness is normal. Normal left ventricular size. RIGHT VENTRICLE Normal right ventricular size and systolic function. LEFT ATRIUM The left atrial size is mildly dilated. RIGHT ATRIUM The right atrial size is normal. ATRIAL SEPTUM Normal atrial septal thickness without atrial level shunting by limited color doppler interrogation. AORTA The aortic root and proximal ascending aorta are normal in size on limited imaging. MITRAL VALVE Mild thickening of the mitral valve leaflets. Trace mitral valve regurgitation. AORTIC VALVE Mild thickening of the aortic valve leaflets. TRICUSPID VALVE Structurally normal tricuspid valve. There is mild tricuspid valve regurgitation. The estimated pulmonary arterial pressure is 35.2 mmHg. PULMONARY VALVE No pulmonary valve regurgitation or stenosis. VESSELS The inferior vena cava is normal in size. PERICARDIUM No pericardial effusion. Maverick Garza MD, FACC (Electronically Signed) Final Date:01 February 2018 13:55
--- NOTE | 2018-02-01 14:36 | PD.PROCEDR ---
Procedure Note Procedure PROCEDURE PERFORMED Right subclavian vein central venous catheter placement PREOPERATIVE DIAGNOSIS Sepsis, MRSA pneumonia, MRSA bacteremia, acute respiratory failure on mechanical ventilation POSTOPERATIVE DIAGNOSIS Same INDICATIONS Central vascular access for multiple IV infusions INFORMED CONSENT Informed consent obtained from family and documented on chart. ANESTHESIA 1% Lidocaine for local infiltration anesthesia. PROCEDURE After sterile prepping and draping using 1% lidocaine for local infiltration anesthesia, the right subclavian vein was cannulated using an introducer needle with dark non-pulsatile blood return following which a guidewire was passed through the introducer needle into the right subclavian vein without any resistance and the needle was then removed. After making a skin juno and dilation of tract, a 20 cm antimicrobial coated triple lumen catheter was passed over the guidewire by modified Seldinger technique into the right subclavian vein up to the 18 cm robert and the guidewire was then removed. Good blood return obtained through all three ports which were then flushed and capped. After securing the catheter in place with a stat lock, a Bio-occlusive dressing with Biopatch was applied to the site. The patient tolerated the procedure well with no immediate complications noted. A postprocedure chest x-ray was ordered and was pending at the time of this dictation. It'll be reviewed when available. Off note subclavian vein cannulated at third attempt using ultrasound. Luis Felipe Choe MD Feb 01, 2018 14:36
--- NOTE | 2018-02-01 15:14 | RADRPT ---
EXAM DATE/TIME: 02/01/2018 14:32 [facility] COMPARISON: CHEST SINGLE AP, February 01, 2018, 4:48. INDICATIONS : Central line placement. Evaluate for pneumothorax. MEDICAL HISTORY : None. SURGICAL HISTORY : None. ENCOUNTER: Subsequent ACUITY: 3 days PAIN SCORE: Non-responsive. LOCATION: Bilateral chest FINDINGS: A single AP semierect portable view of the chest was obtained and demonstrates interval placement of a right subclavian central venous line with the tip projected over the superior vena cava. There is a new moderate to large right pneumothorax extending from the lung apex to the lung base. The lung is a collapsed centrally. There is mild mediastinal shift to the left. There is dense consolidation in t he left perihilar region and left lung base. The endotracheal tube remains in place the tip approxima tely 3 cm above the thiago. A nasogastric tube remains in place. CONCLUSION: 1. New moderate to large right pneumothorax with mild mediastinal shift to left of concern for tensio n. 2. Dense consolidation in the right central lung and left lung. These findings were called stat to the patient's nurse at [facility] at 1510 hrs. Kevin Tello MD on February 01, 2018 at 15:05 Board Certified Radiologist. This report was verified electronically.
--- NOTE | 2018-02-01 16:07 | RADRPT ---
EXAM DATE/TIME: 02/01/2018 15:16 [facility] COMPARISON: CHEST SINGLE AP, February 01, 2018, 14:32. INDICATIONS : Evaluate for chest tube placement. Followup right pneumothorax. MEDICAL HISTORY : Pneumonia. SURGICAL HISTORY : Tubal ligation. ENCOUNTER: Subsequent ACUITY: 1 day PAIN SCORE: Non-responsive. LOCATION: chest FINDINGS: A single AP semierect view of the chest was obtained and demonstrates interval placement of a small b ore right-sided chest tube. The pneumothorax has significantly decreased in size with only small apic al residual component measuring approximately 6 mm. The right subclavian central venous line is in pl ene with the tip projected at the superior vena cava. Endotracheal tube tip history centimeters above the thiago. A nasogastric tube is seen coursing through the esophagus into the stomach. Diffuse bila teral alveolar opacities are again noted. There is loculated left effusion. Subcutaneous emphysema is noted over the right lateral chest wall. Left costophrenic angle is blunted. The heart size appears mildly prominent. CONCLUSION: 1. Interval placement of right-sided chest tube with significant improvement in right pneumothorax wi th only minimal residual. 2. Diffuse alveolar opacities remain in both lungs. Kevin Tello MD on February 01, 2018 at 16:03 Board Certified Radiologist. This report was verified electronically.
[2018-02-01 17:12] LABS: BICARBONATE 32.6 MEQ/L (21.0-32.0); BLOOD UREA NITROGEN 36 MG/DL (7-18); CALCIUM 7.6 MG/DL (8.5-10.1); CHLORIDE 102 MEQ/L (98-107); GLOMERULAR FILTRATION RATE 38 ML/MIN (>89); GLUCOSE,RANDOM 208 MG/DL (74-106); MAGNESIUM 2.2 MG/DL (1.5-2.5); PHOSPHORUS 2.4 MG/DL (2.5-4.9); SODIUM (NA) 141 MEQ/L (136-145)
[2018-02-01 17:16] LABS: TROPONIN I LESS THAN 0.02 NG/ML (0.02-0.05)
[2018-02-01] MEDS: MIDAZOLAM 100 MG/NS 100 ML DRIP Premix IV PRN (17:19)
[2018-02-01] MEDS ORDERED: OSELTAMIVIR PHOSPHATE 6 MG/ML 60 ML SUSP OG-TUBE SCH (20:00)
[2018-02-01] MEDS: OSELTAMIVIR PHOSPHATE 75 MG CAP OG-TUBE SCH (20:46)
[2018-02-02] VITALS (18 sets, daily range): BP systolic 108–127; BP diastolic 56–62; PULSE 76–91; RESP 16–27; TEMP 98.3–99.1; O2SAT 93–96
[2018-02-02] MEDS: RESP: ALBUTEROL 2.5 MG/IPRATROPIUM 0.5 MG NEB (PRN) INH (01:27)
[2018-02-02] MEDS: SODIUM BICARBONATE 8.4% INJ 150 MEQ in DEXTROSE 5% IN WATE 1000ML INJ 1,000 ML IV SCH ×2 (02:18)
[2018-02-02] MEDS: CHLORHEXIDINE GLUCONATE 2 % 1 PACK (2 CLOTHS) TOP SCH (04:00)
[2018-02-02] MEDS: RESP: ALBUTEROL 2.5 MG/IPRATROPIUM 0.5 MG NEB (SCH) INH ×4 (05:06→19:56)
[2018-02-02] MEDS: LOW DOSE INSULIN NOVOLIN REGULAR SUPPLEMENTAL SCALE SQ SCH ×2 (06:00→12:00)
[2018-02-02] MEDS: HEPARIN SODIUM - SQ 10,000 UNITS/ML VIAL SQ SCH ×3 (06:04→20:26)
--- NOTE | 2018-02-02 07:09 | PD.PROCEDR ---
Procedure Note Procedure Date of procedure: 02/01/18 Procedure: Pigtail catheter placement site: Right pleural cavity Preop diagnosis: Right pneumothorax Postop diagnosis: Same Informed consent: Obtained from family and documented on chart. Anesthesia used: 1% lidocaine for local infiltration anesthesia Procedure: After sterile prepping and draping using 1% lidocaine for local infiltration anesthesia, introducer Angiocath was used to enter Right pleural cavity in third intercostal space in midclavicular line. Pleural cavity was entered as evidenced by return of air bubbles. A guidewire was passed through Angiocath without any resistance following which Angiocath was removed. 10 Hebrew pigtail catheter was advanced over the guidewire into the right pleural cavity following which guidewire and stiffener were removed. Pigtail catheter was connected to Pleur-evac VAC with a connector. Positive air leak noted. Pigtail catheter was sutured in place as well as secured with stayfix. Postprocedure chest x-ray was ordered and reviewed with good placement of pigtail catheter with almost complete resolution of right pneumothorax noted. Patient tolerated procedure well with no immediate complications noted. Luis Felipe Choe MD Feb 02, 2018 07:09
[2018-02-02] MEDS: CHLORHEXIDINE 0.12% (ORAL KIT) 15 ML CUP MT SCH ×2 (08:00→20:26)
[2018-02-02] MEDS: SODIUM CHLORIDE 0.9% FLUSH 10 ML FLUSH IV FLUSH SCH ×2 (08:40→20:26)
[2018-02-02] MEDS: DOCUSATE SODIUM 50 MG/SENNA 8.6 MG TAB PO SCH ×2 (08:40→20:25)
[2018-02-02] MEDS: OSELTAMIVIR PHOSPHATE 75 MG CAP OG-TUBE SCH (08:40)
[2018-02-02] MEDS: FAMOTIDINE 20 MG TAB PO SCH ×2 (08:40→20:25)
[2018-02-02] MEDS: methylPREDNISolone SOD SUCC 40 MG/1 ML VIAL IV PUSH SCH (08:52)
--- NOTE | 2018-02-02 09:25 | RADRPT ---
EXAM DATE/TIME: 02/02/2018 07:35 [place] COMPARISON: CHEST SINGLE AP, February 01, 2018, 15:16. INDICATIONS : Shortness of breath. Followup small right apical pneumothorax.. MEDICAL HISTORY : Unresponsive. SURGICAL HISTORY : Unresponsive. ENCOUNTER: Subsequent ACUITY: 4 - 6 days PAIN SCORE: Non-responsive. LOCATION: Bilateral chest FINDINGS: A single AP erect portable expiratory view of the chest was obtained. A minute right apical pneumotho rax is again visualized and are slightly decreased in size. This now measures approximately 2-3 mm in size. The right subclavian central venous line remains in place. The patient remains intubated with the endotracheal tube tip approximately 2 cm above the thiago. A nasogastric tube is again seen cours ing through the esophagus into the stomach. Dense alveolar opacity remains in both lungs. A small bor e right-sided chest tube remains in place. The heart size appears mildly prominent. The left costophr enic angle remains blunted. CONCLUSION: 1. Mild interval decrease in the size of the tiny right apical pneumothorax. 2. Dense alveolar airspace disease remains in both lungs. Kevin Tello MD on February 02, 2018 at 9:21 Board Certified Radiologist. This report was verified electronically.
[2018-02-02 09:32] LABS: AUTOMATED NEUTROPHIL # 21.8 TH/MM3 (1.8-7.7); BASOPHIL % 0.1 % (0.0-2.0); HEMATOCRIT 29.9 % (35.0-46.0); HEMOGLOBIN 9.7 GM/DL (11.6-15.3); LYMPH % 1.8 % (9.0-44.0); LYMPHOCYTE # 0.4 TH/MM3 (1.0-4.8); MEAN CELL VOLUME 85.1 FL (80.0-100.0); MEAN CORPUSCULAR HEMOGLOBIN 27.7 PG (27.0-34.0); MEAN CORPUSCULAR HGB CONC 32.5 % (32.0-36.0); MONO % 1.5 % (0.0-8.0); MONOCYTE # 0.3 TH/MM3 (0-0.9); NEUT % 96.6 % (16.0-70.0); PLATELET COUNT 203 TH/MM3 (150-450); RED BLOOD COUNT 3.51 MIL/MM3 (4.00-5.30); RED CELL DISTRIBUTION WIDTH 16.6 % (11.6-17.2); WHITE BLOOD COUNT 22.6 TH/MM3 (4.0-11.0)
[2018-02-02 09:52] LABS: ALBUMIN 1.3 GM/DL (3.4-5.0); ALT (GPT) 47 U/L (10-53); AST (GOT) 82 U/L (15-37); BICARBONATE 33.9 MEQ/L (21.0-32.0); BLOOD UREA NITROGEN 47 MG/DL (7-18); CALCIUM 7.9 MG/DL (8.5-10.1); CHLORIDE 99 MEQ/L (98-107); GLOMERULAR FILTRATION RATE 35 ML/MIN (>89); GLUCOSE,RANDOM 307 MG/DL (74-106); SODIUM (NA) 140 MEQ/L (136-145)
[2018-02-02 09:53] LABS: ALKALINE PHOSPHATASE 176 U/L (45-117); TOTAL BILIRUBIN ADULT 0.9 MG/DL (0.2-1.0); TOTAL PROTEIN 5.7 GM/DL (6.4-8.2)
[2018-02-02 10:34] LABS: BANDS 16 % (0-6); DOHLE BODIES PRESENT (NONE SEEN); LYMPHOCYTES 2 % (9-44); MONOCYTES 2 % (0-8); NEUTROPHIL # MANUAL DIFF 21.7 TH/MM3 (1.8-7.7); POLYS (SEG NEUTROPHILS) 80 % (16-70); TOXIC GRANULATION 1+ (NORMAL)
[2018-02-02] MEDS: AMIODARONE INJ 450 MG in SODIUM CHLOR 0.9% (EXCEL) INJ 241 ML IV PRN ×2 (11:01→23:33)
[2018-02-02] MEDS: LINEZOLID 600 MG PREMIX 300 ML IV SCH ×2 (12:52→23:33)
--- NOTE | 2018-02-02 15:02 | HHI.IDPN ---
Subjective Subjective Remarks high grade bacteremia with MRSA repeat blood clx are positive as well remains on vent FiO2 50% PEEP 8 2 D ehco with valve thickening resp panel negative Antibiotics zyvox tamiflu Allergies: Coded Allergies: No Known Allergies (Unverified , 01/30/18) Objective . Vital Signs Date Time Temp Pulse Resp B/P (MAP) Pulse Ox O2 Delivery O2 Flow Rate FiO2 02/02/18 14:00 83 02/02/18 12:00 99.1 82 27 126/62 (83) 95 02/02/18 12:00 82 02/02/18 12:00 50 02/02/18 11:34 94 50 02/02/18 10:00 90 02/02/18 08:16 94 50 02/02/18 08:00 98.8 81 16 120/56 (77) 93 02/02/18 08:00 81 02/02/18 08:00 50 02/02/18 06:00 91 02/02/18 05:06 94 50 02/02/18 04:00 50 02/02/18 04:00 98.5 79 16 119/59 (79) 93 02/02/18 04:00 79 02/02/18 02:00 86 02/02/18 01:21 93 50 02/02/18 00:00 76 02/02/18 00:00 50 02/02/18 00:00 98.3 76 16 108/56 (73) 93 02/01/18 22:00 83 02/01/18 20:59 93 50 02/01/18 20:00 97.5 79 16 88/50 (63) 94 02/01/18 20:00 79 02/01/18 20:00 50 02/01/18 19:00 94 Mechanical Ventilator 50 02/01/18 18:00 81 02/01/18 17:55 80 94/52 02/01/18 16:00 50 02/01/18 16:00 98.7 83 16 92/51 (65) 92 02/01/18 16:00 83 02/01/18 15:56 93 50 02/01/18 15:00 97 17 118/63 (81) 95 02/02/18 02/02/18 02/03/18 15:00 23:00 07:00 Intake Total 250 ml Balance 250 ml IV Total 250 ml . Laboratory Tests Test 02/01/18 05:08 02/02/18 09:00 White Blood Count 8.3 TH/MM3 22.6 TH/MM3 Red Blood Count 3.93 MIL/MM3 3.51 MIL/MM3 Hemoglobin 10.9 GM/DL 9.7 GM/DL Hematocrit 33.6 % 29.9 % Mean Corpuscular Volume 85.3 FL 85.1 FL Mean Corpuscular Hemoglobin 27.7 PG 27.7 PG Mean Corpuscular Hemoglobin Concent 32.4 % 32.5 % Red Cell Distribution Width 16.6 % 16.6 % Platelet Count 205 TH/MM3 203 TH/MM3 Mean Platelet Volume 8.9 FL 9.0 FL Neutrophils (%) (Auto) 92.9 % 96.6 % Lymphocytes (%) (Auto) 3.8 % 1.8 % Monocytes (%) (Auto) 3.2 % 1.5 % Eosinophils (%) (Auto) 0.0 % 0.0 % Basophils (%) (Auto) 0.1 % 0.1 % Neutrophils # (Auto) 7.7 TH/MM3 21.8 TH/MM3 Lymphocytes # (Auto) 0.3 TH/MM3 0.4 TH/MM3 Monocytes # (Auto) 0.3 TH/MM3 0.3 TH/MM3 Eosinophils # (Auto) 0.0 TH/MM3 0.0 TH/MM3 Basophils # (Auto) 0.0 TH/MM3 0.0 TH/MM3 CBC Comment AUTO DIFF AUTO DIFF Differential Total Cells Counted 100 100 Neutrophils % (Manual) 54 % 80 % Band Neutrophils % 25 % 16 % Lymphocytes % 4 % 2 % Monocytes % 6 % 2 % Neutrophils # (Manual) 7.5 TH/MM3 21.7 TH/MM3 Metamyelocytes 11 % Differential Comment FINAL DIFF MANUAL FINAL DIFF MANUAL Toxic Granulation 1+ 1+ Toxic Vacuolation PRESENT Dohle Bodies PRESENT PRESENT Platelet Estimate NORMAL NORMAL Platelet Morphology Comment NORMAL NORMAL Red Cell Morphology Comment NORMAL Laboratory Tests Test 01/31/18 15:30 02/01/18 11:02 02/01/18 16:18 02/02/18 09:00 Blood Urea Nitrogen 32 MG/DL 35 MG/DL 36 MG/DL 47 MG/DL Creatinine 1.19 MG/DL 1.28 MG/DL 1.40 MG/DL 1.50 MG/DL Random Glucose 247 MG/DL 218 MG/DL 208 MG/DL 307 MG/DL Total Protein 5.8 GM/DL 5.8 GM/DL 5.7 GM/DL Albumin 1.6 GM/DL 1.4 GM/DL 1.3 GM/DL Calcium Level 7.7 MG/DL 7.8 MG/DL 7.6 MG/DL 7.9 MG/DL Alkaline Phosphatase 119 U/L 114 U/L 176 U/L Aspartate Amino Transf (AST/SGOT) 34 U/L 37 U/L 82 U/L Alanine Aminotransferase (ALT/SGPT) 34 U/L 31 U/L 47 U/L Total Bilirubin 1.0 MG/DL 0.9 MG/DL 0.9 MG/DL Sodium Level 142 MEQ/L 141 MEQ/L 141 MEQ/L 140 MEQ/L Potassium Level 3.3 MEQ/L 3.8 MEQ/L 3.7 MEQ/L 3.5 MEQ/L Chloride Level 109 MEQ/L 103 MEQ/L 102 MEQ/L 99 MEQ/L Carbon Dioxide Level 24.6 MEQ/L 29.5 MEQ/L 32.6 MEQ/L 33.9 MEQ/L Anion Gap 8 MEQ/L 9 MEQ/L 6 MEQ/L 7 MEQ/L Estimat Glomerular Filtration Rate 46 ML/MIN 42 ML/MIN 38 ML/MIN 35 ML/MIN Lactic Acid Level 2.7 mmol/L 2.8 mmol/L Phosphorus Level 2.4 MG/DL Magnesium Level 2.2 MG/DL Troponin I LESS THAN 0.02 NG/ML Microbiology Date/Time Source Procedure Growth Status 02/01/18 05:08 Blood Peripheral Aerobic Blood Culture - Preliminary Gram Positive Cocci Resulted 02/01/18 05:08 Blood Peripheral Anaerobic Blood Culture - Preliminary NO GROWTH IN 1 DAY Resulted 02/01/18 05:00 Blood Peripheral Aerobic Blood Culture - Preliminary Gram Positive Cocci Resulted 02/01/18 05:00 Blood Peripheral Anaerobic Blood Culture - Preliminary NO GROWTH IN 1 DAY Resulted 01/30/18 16:05 Blood Peripheral Aerobic Blood Culture - Preliminary NO GROWTH IN 3 DAYS Resulted 01/30/18 16:05 Anaerobic Blood Culture - Final S. Aureus Mrsa Resulted 01/30/18 16:05 Blood Peripheral Aerobic Blood Culture - Final S. Aureus Mrsa Complete 01/30/18 16:05 Anaerobic Blood Culture - Final S. Aureus Mrsa Complete 01/31/18 14:04 Bronchial Washings Left Lower Lobe Acid Fast Stain - Final NO ACID FAST BACILLI SEEN Resulted 01/31/18 14:04 Bronchial Washings Left Lower Lobe Mycobacterial Culture Pending Resulted 01/31/18 14:04 Bronchial Washings Left Lower Lobe Fungal Smear - Final NO FUNGAL ELEMENTS SEEN. Resulted 01/31/18 14:04 Bronchial Washings Left Lower Lobe Fungal Culture Pending Resulted 01/31/18 14:04 Bronchial Washings Left Lower Lobe Gram Stain - Final Complete 01/31/18 14:04 Bronchial Culture - Final S. Aureus Mrsa Complete 01/31/18 06:25 Nasal Washing Influenza Types A,B Antigen (MYLENE) - Final NEGATIVE FOR FLU A AND B ANTIGEN.... Complete 01/30/18 23:40 Sputum Expectorated Sputum Gram Stain - Final Complete 01/30/18 23:40 Sputum Culture - Final S. Aureus Mrsa Complete 01/31/18 07:42 Urine Catheterized Urine Urine Culture - Final NO GROWTH IN 48 HOURS. Complete 01/30/18 23:40 Urine Catheterized Urine Legionella Antigen - Final PRESUMPTIVE NEGATIVE FOR LEGIONELLA P... Complete 01/30/18 23:40 Urine Catheterized Urine Streptococcus pneumoniae Antigen (M - Final PRESUMPTIVE NEGATIVE FOR STREPTOCOCCU... Complete Imaging Last Impressions Chest X-Ray 02/02/18 0000 Signed Impressions: Service Date/Time: Friday, February 02, 2018 07:35 - CONCLUSION: 1. Mild interval decrease in the size of the tiny right apical pneumothorax. 2. Dense alveolar airspace disease remains in both lungs. Kevin Tello MD Chest CT 01/30/18 0000 Signed Impressions: Service Date/Time: Tuesday, January 30, 2018 20:07 - CONCLUSION: 1. Dense consolidation throughout the left lingula and left lower lobe. There is more patchy areas of consolidation in the upper lobes bilaterally. This pattern is most suggestive of inflammatory/infectious processes. 2. Mild left pleural effusion. 3. Status post gastric surgery/bypass with a mild hiatal hernia. Michael Gabriel MD Physical Exam CONSTITUTIONAL/GENERAL: This is an adequately nourished patient, in no apparent distress. TUBES/LINES/DRAINS: SKIN: No jaundice, rashes, or lesions. Ecchymoses on upper extremities. No wounds seen anteriorly. Skin temperature appropriate. Not diaphoretic. HEAD: Atraumatic. Normocephalic. EYES: Pupils equal and round and reactive. Extraocular motions intact. No scleral icterus. No injection or drainage. Fundi not examined. ENT: Hearing grossly normal. Nose without bleeding or purulent drainage. Throat without visible erythema, exudates, masses, or lesions. NECK: Trachea midline. Supple, nontender. CARDIOVASCULAR: Regular rate and rhythm without murmurs, gallops, or rubs. No JVD. Peripheral pulses symmetric. RESPIRATORY/CHEST: Symmetric, unlabored respirations. Reduced BS and exrensive rhonchi and crackles on the L lung field to auscultation. Breath sounds equal bilaterally. GASTROINTESTINAL: Abdomen soft, non-tender, nondistended. No hepato-splenomegaly , or palpable masses. No guarding. Bowel sounds present. GENITOURINARY: Without palpable bladder distension. Alexandre catheter in place. MUSCULOSKELETAL: Extremities without clubbing, cyanosis, + edema. . NEUROLOGICAL: sedatd, PSYCHIATRIC: unable to assess Assessment & Plan Remarks Assessment and Plan Assessment and Plan MRSA PNA Acute VDRF High grade , sustained MRSA bacteremia ? endovascular source 2 D echo negative cont zyvox add vancomycin dc tamiflu consult cardioligy for GRANT fu blood untill strility doc'd Carlene Stephens Dr, RN, MD Feb 02, 2018 15:02
--- NOTE | 2018-02-02 15:06 | HHI.CCPN ---
Subjective Remarks/Hospital Course 01/30: 62-year-old female presents for evaluation of increasing shortness of breath and chest pain. She reports 1 week of coughing 3 days of pain in her left chest which radiates to her back, which prompted the visit to the emergency room yesterday. She rates her pain a 6 out of 10. She reports fevers , chills, fatigue, mild nausea. She denies any abdominal pain, vomiting. Patient denies any significant past medical history. Symptom onset was gradual , symptom severity is severe, there are no alleviating factors. Patient states that she has been taking the azithromycin antibiotics that were prescribed to her. She denies any current or historical tobacco use. 01/31: Intubated at 1 AM this morning and placed on mechanical ventilation due to worsening respiratory distress. Currently sedated, orally intubated on mechanical ventilation. 02/01: Remains sedated, orally intubated on mechanical ventilation. Went into A. fib with RVR this morning. Loaded with amiodarone, started on amiodarone drip and given digoxin 0.5 mg IV 02/02: Remains sedated, orally intubated on mechanical ventilation. Right sided pigtail catheter in place with 1+ air leak. Converted to sinus rhythm overnight. Remains on amiodarone gtt. Objective Vital Signs Date Time Temp Pulse Resp B/P (MAP) Pulse Ox O2 Delivery O2 Flow Rate FiO2 02/02/18 14:00 83 02/02/18 12:00 99.1 27 126/62 (83) 95 02/02/18 12:00 50 02/01/18 19:00 Mechanical Ventilator 01/30/18 18:25 2.00 Intake and Output 02/02/18 02/02/18 02/03/18 08:00 16:00 00:00 Intake Total 1197 ml 250 ml Output Total 337 ml Balance 860 ml 250 ml Result Diagram: 02/02/18 0900 02/02/18 0900 Other Results Microbiology Date/Time Source Procedure Growth Status 01/30/18 16:05 Blood Peripheral Aerobic Blood Culture - Final S. Aureus Mrsa Complete 01/30/18 16:05 Anaerobic Blood Culture - Final S. Aureus Mrsa Complete 01/31/18 14:04 Bronchial Washings Left Lower Lobe Gram Stain - Final Complete 01/31/18 14:04 Bronchial Culture - Final S. Aureus Mrsa Complete 01/31/18 06:25 Nasal Washing Influenza Types A,B Antigen (MYLENE) - Final NEGATIVE FOR FLU A AND B ANTIGEN.... Complete 01/30/18 23:40 Sputum Expectorated Sputum Gram Stain - Final Complete 01/30/18 23:40 Sputum Culture - Final S. Aureus Mrsa Complete 01/31/18 07:42 Urine Catheterized Urine Urine Culture - Final NO GROWTH IN 48 HOURS. Complete 01/30/18 23:40 Urine Catheterized Urine Legionella Antigen - Final PRESUMPTIVE NEGATIVE FOR LEGIONELLA P... Complete 01/30/18 23:40 Urine Catheterized Urine Streptococcus pneumoniae Antigen (M - Final PRESUMPTIVE NEGATIVE FOR STREPTOCOCCU... Complete Imaging Last 24 hours Impressions Chest X-Ray 01/30/18 1556 Signed Impressions: Service Date/Time: Tuesday, January 30, 2018 16:01 - CONCLUSION: 1. Bilateral airspace disease with significant consolidation in the left base. 2. Elevated left hemidiaphragm versus eventration. Ramon Blunt MD Chest CT 01/30/18 0000 Signed Impressions: Service Date/Time: Tuesday, January 30, 2018 20:07 - CONCLUSION: 1. Dense consolidation throughout the left lingula and left lower lobe. There is more patchy areas of consolidation in the upper lobes bilaterally. This pattern is most suggestive of inflammatory/infectious processes. 2. Mild left pleural effusion. 3. Status post gastric surgery/bypass with a mild hiatal hernia. Michael Gabriel MD Objective Remarks HEENT/ Neuro: Sedated, orally intubated, Pallor present, no icterus, tongue/ mucosa moist Neck: No JVD Chest/Pulm: on mech vent, air entry decreased bilaterally at bases especially on left, scattered rhonchi bilaterally CVS: S1-S2 regular, no murmur GI/abdomen: soft, nontender, bowel sounds sluggish Extremities: warm bilaterally, bilateral edema A/P Assessment and Plan Acute Respiratory failure Underlying pneumonia Sepsis COPD Right pneumothorax - Antibiotics per ID. On Zyvox. MRSA bacteremia persists from blood culture on 02/01. Dr. Singleton adding IV vancomycin and will be planning GRANT to evaluate heart valves. -Repeat blood cultures per ID. - Bal culture/blood cultures growing MRSA -Legionella and strep pneumo antigen negative -Consulted ID for sepsis/pneumonia - Dr. Areli following. - DuoNeb scheduled and when necessary - Titrate off IV steroids by 02/03 - Right sided pigtail catheter in place with 1+ air leak Acute kidney injury - Dehydration - s/p IV fluids resuscitation. KVO IVF - Strict I's and O's - Monitor trend of creatinine and electrolytes A. fib with RVR (converted to RSR 02/02) -Continue amiodarone gtt. Digoxin 0.5 mg IV x 1 on 02/01. DVT GI prophylaxis - Teds SCDs - Subcutaneous heparin - Pepcid Updated patient's daughter at bedside regarding current clinical status and plan of care and she voiced understanding. Lines: Right subclavian central line inserted 02/01 Critical Care: The total critical care time was 35 minutes. Time to perform other separately billable procedures was not included in the critical care time. Luis Felipe Choe MD Feb 02, 2018 15:06
[2018-02-02] MEDS ORDERED: GLUCAGON 1 MG/ML VIAL IM/SQ PRN (15:15)
[2018-02-02] MEDS ORDERED: Vancomycin Consult Pharmacy 1 EA OTHER SCH (15:15)
[2018-02-02] MEDS ORDERED: DEXTROSE 50% IN WATER 50 ML VIAL(D50) IV PRN (15:15)
[2018-02-02] MEDS: INSULIN ASPART SUPPLEMENTAL SCALE SQ SCH ×3 (16:00→23:32)
[2018-02-02] MEDS: fentaNYL 2,500 MCG/NS 250 ML IV PRN (16:39)
[2018-02-02] MEDS: MIDAZOLAM 100 MG/NS 100 ML DRIP Premix IV PRN (16:39)
[2018-02-02] MEDS ORDERED: VANCOMYCIN 1,500 MG/NS 500 ML IV ONE ×2 (17:00)
[2018-02-02] MEDS ORDERED: PHARMACY ORDERED LAB ONE (20:45)
[2018-02-03] VITALS (17 sets, daily range): BP systolic 132–197; BP diastolic 55–91; PULSE 69–85; RESP 19–22; TEMP 98–99.3; O2SAT 94–97
[2018-02-03] MEDS: RESP: ALBUTEROL 2.5 MG/IPRATROPIUM 0.5 MG NEB (SCH) INH ×3 (03:51→14:54)
[2018-02-03] MEDS: INSULIN ASPART SUPPLEMENTAL SCALE SQ SCH ×5 (04:00→20:00)
[2018-02-03] MEDS: CHLORHEXIDINE GLUCONATE 2 % 1 PACK (2 CLOTHS) TOP SCH (04:00)
[2018-02-03] MEDS: HEPARIN SODIUM - SQ 10,000 UNITS/ML VIAL SQ SCH ×3 (05:00→20:18)
[2018-02-03 06:41] LABS: HEMATOCRIT 31.6 % (35.0-46.0); HEMOGLOBIN 10.1 GM/DL (11.6-15.3); MEAN CELL VOLUME 85.4 FL (80.0-100.0); MEAN CORPUSCULAR HEMOGLOBIN 27.2 PG (27.0-34.0); MEAN CORPUSCULAR HGB CONC 31.9 % (32.0-36.0); MEAN PLATELET VOLUME 9.1 FL (7.0-11.0); PLATELET COUNT 218 TH/MM3 (150-450); RED CELL DISTRIBUTION WIDTH 16.6 % (11.6-17.2)
[2018-02-03 07:14] LABS: ALBUMIN 1.3 GM/DL (3.4-5.0); ALKALINE PHOSPHATASE 312 U/L (45-117); ALT (GPT) 143 U/L (10-53); AST (GOT) 227 U/L (15-37); BICARBONATE 36.3 MEQ/L (21.0-32.0); BLOOD UREA NITROGEN 40 MG/DL (7-18); CALCIUM 8.8 MG/DL (8.5-10.1); CHLORIDE 101 MEQ/L (98-107); CREATININE 1.12 MG/DL (0.50-1.00); GLOMERULAR FILTRATION RATE 49 ML/MIN (>89); GLUCOSE,RANDOM 256 MG/DL (74-106); RANDOM VANCOMYCIN 12.8 COMMENT; SODIUM (NA) 142 MEQ/L (136-145); TOTAL PROTEIN 6.4 GM/DL (6.4-8.2)
[2018-02-03 07:43] LABS: BANDS 7 % (0-6); MONOCYTES 1 % (0-8); NEUTROPHIL # MANUAL DIFF 27.4 TH/MM3 (1.8-7.7); POLYS (SEG NEUTROPHILS) 91 % (16-70)
[2018-02-03] MEDS: CHLORHEXIDINE 0.12% (ORAL KIT) 15 ML CUP MT SCH ×2 (08:00→20:20)
[2018-02-03] MEDS: FAMOTIDINE 20 MG TAB PO SCH ×2 (08:21→20:19)
[2018-02-03] MEDS: DOCUSATE SODIUM 50 MG/SENNA 8.6 MG TAB PO SCH ×2 (08:21→20:19)
[2018-02-03] MEDS: MIDAZOLAM 100 MG/NS 100 ML DRIP Premix IV PRN ×2 (08:25→17:19)
[2018-02-03] MEDS ORDERED: methylPREDNISolone SOD SUCC 40 MG/1 ML VIAL IV PUSH SCH (09:00)
--- NOTE | 2018-02-03 09:50 | HHI.IDPN ---
Subjective Subjective Remarks ID COVERAGE 62 yo female w/o significant past medicxal history presented 2 days ago with chest pain, CXR showed L lung basilar infiltrate shew was discharged with abx ( azithromycin) SHe came back with worsning SOB and was admitted and intubated, placed on vent She was sarted on broad spectrum abx: initially azithro, zosyn, vanco She grew out MRSA in 2/2 blood cultures, sputum with GPC in clusters imaging studies showed progression of infiltrates Vancomycin was switched to zyvox WBC elevated with 23 % of bands flu/ pneumococcus/ legionella negative Notes reviewed Temps ok Sedated on the vent - opens eyes when stimulated Repeat BC 02/01 with MRSA CXR stable infiltrates WBC worsening BP ok, not on pressors 2 D ehco with valve thickening Resp panel negative Cardiology consulted for GRANT Antibiotics zyvox tamiflu Vanco IV Current Medications Medications (Trade) Dose Ordered Sig/Tyler Route Start Time Stop Time Status Last Admin (NS Flush) 2 ml UNSCH PRN IV FLUSH 01/30/18 19:00 (NS Flush) 2 ml BID IV FLUSH 01/30/18 21:00 02/02/18 20:26 (Tylenol) 650 mg Q6H PRN PO 01/30/18 19:00 01/30/18 19:48 (Morphine Inj) 2 mg Q2H PRN IV PUSH 01/30/18 19:00 (Zofran Inj) 4 mg Q6H PRN IV PUSH 01/30/18 19:00 (Restoril) 15 mg HS PRN PO 01/30/18 19:00 (Duoneb Neb) 1 ampule Q6HR NEB INH 01/30/18 19:00 02/03/18 07:59 (Duoneb Neb) 1 ampule Q2HR NEB PRN INH 01/30/18 19:00 02/02/18 01:27 (Heparin Inj) 5,000 units Q8HR SQ 01/30/18 22:00 02/03/18 05:00 Miscellaneous Information 1 Q361D XX 01/30/18 19:00 01/30/18 22:56 (Chlorhexidine 2% Cloth) 3 pack Taper DAILY@04 TOP 01/31/18 04:00 01/27/19 03:59 02/03/18 04:00 (Chlorhexidine 2% Cloth) 3 pack UNSCH PRN TOP 3/28/18 19:00 (Chiquis-Colace) 1 tab BID PO 01/30/18 21:00 02/03/18 08:21 (Milk Of Magnesia Liq) 30 ml Q12H PRN PO 01/30/18 19:00 (Senokot) 17.2 mg Q12H PRN PO 01/30/18 19:00 (Dulcolax Supp) 10 mg DAILY PRN RECTAL 01/30/18 19:00 (Lactulose Liq) 30 ml DAILY PRN PO 01/30/18 19:00 (Peridex 0.12% Liq) 15 ml BID@08,20 MT 01/31/18 08:00 02/03/18 08:00 Fentanyl Citrate 250 ml @ 20 mls/hr TITRATE PRN IV 01/30/18 23:45 02/02/18 16:39 Midazolam HCl 100 ml @ 5 mls/hr TITRATE PRN IV 01/30/18 23:45 02/03/18 08:25 Linezolid 300 ml @ 300 mls/hr Q12H IV 02/01/18 01:00 02/02/18 23:33 (D50w (Vial) Inj) 50 ml UNSCH PRN IV PUSH 01/31/18 18:15 (Glucagon Inj) 1 mg UNSCH PRN OTHER 01/31/18 18:15 Amiodarone HCl 450 mg/Sodium Chloride 250 ml @ 33.33 mls/ hr Q7H31M PRN IV 02/01/18 07:15 02/02/18 23:33 (SoluMEDROL INJ) 40 mg DAILY IV PUSH 02/03/18 09:00 02/03/18 12:00 02/03/18 08:21 (NovoLOG SUPPLEMENTAL SCALE) 1 Q4HR SQ 02/02/18 16:00 02/03/18 08:00 (D50w (Vial) Inj) 25 ml UNSCH PRN IV 02/02/18 15:15 (Glucagon Inj) 1 mg UNSCH PRN IM/SQ 02/02/18 15:15 Pharmacy Profile Note 0 ml @ 0 mls/hr UNSCH OTHER 02/02/18 15:15 (Pepcid) 10 mg BID PO 02/02/18 21:00 02/03/18 08:21 Past Medical History Gastric bypass Tonsillectomy Allergies: Coded Allergies: No Known Allergies (Unverified , 01/30/18) Objective . Vital Signs Date Time Temp Pulse Resp B/P (MAP) Pulse Ox O2 Delivery O2 Flow Rate FiO2 02/03/18 08:00 79 02/03/18 08:00 50 02/03/18 08:00 98.8 80 22 158/72 (100) 95 02/03/18 08:00 95 50 02/03/18 06:00 79 02/03/18 04:00 98.8 78 22 132/55 (80) 95 02/03/18 04:00 80 02/03/18 04:00 50 02/03/18 03:50 96 50 02/03/18 02:00 79 02/03/18 00:08 96 50 02/03/18 00:00 98.1 85 19 134/61 (85) 96 02/03/18 00:00 50 02/03/18 00:00 83 02/02/18 23:33 85 02/02/18 22:00 82 02/02/18 20:00 50 02/02/18 20:00 90 02/02/18 20:00 98.4 80 21 127/57 (80) 96 02/02/18 19:55 96 50 02/02/18 18:00 86 02/02/18 16:00 80 02/02/18 16:00 50 02/02/18 16:00 98.8 80 17 122/58 (79) 95 02/02/18 15:58 95 50 02/02/18 14:00 83 02/02/18 12:00 99.1 82 27 126/62 (83) 95 02/02/18 12:00 82 02/02/18 12:00 50 02/02/18 11:34 94 50 02/02/18 11:01 92 02/02/18 10:00 90 . Laboratory Tests Test 02/02/18 09:00 02/03/18 05:20 White Blood Count 22.6 TH/MM3 28.0 TH/MM3 Red Blood Count 3.51 MIL/MM3 3.70 MIL/MM3 Hemoglobin 9.7 GM/DL 10.1 GM/DL Hematocrit 29.9 % 31.6 % Mean Corpuscular Volume 85.1 FL 85.4 FL Mean Corpuscular Hemoglobin 27.7 PG 27.2 PG Mean Corpuscular Hemoglobin Concent 32.5 % 31.9 % Red Cell Distribution Width 16.6 % 16.6 % Platelet Count 203 TH/MM3 218 TH/MM3 Mean Platelet Volume 9.0 FL 9.1 FL Neutrophils (%) (Auto) 96.6 % Lymphocytes (%) (Auto) 1.8 % Monocytes (%) (Auto) 1.5 % Eosinophils (%) (Auto) 0.0 % Basophils (%) (Auto) 0.1 % Neutrophils # (Auto) 21.8 TH/MM3 Lymphocytes # (Auto) 0.4 TH/MM3 Monocytes # (Auto) 0.3 TH/MM3 Eosinophils # (Auto) 0.0 TH/MM3 Basophils # (Auto) 0.0 TH/MM3 CBC Comment AUTO DIFF AUTO DIFF Differential Total Cells Counted 100 100 Neutrophils % (Manual) 80 % 91 % Band Neutrophils % 16 % 7 % Lymphocytes % 2 % Monocytes % 2 % 1 % Neutrophils # (Manual) 21.7 TH/MM3 27.4 TH/MM3 Differential Comment FINAL DIFF MANUAL FINAL DIFF MANUAL Toxic Granulation 1+ Dohle Bodies PRESENT Platelet Estimate NORMAL NORMAL Platelet Morphology Comment NORMAL NORMAL Red Cell Morphology Comment NORMAL Eosinophils % 1 % Laboratory Tests Test 02/01/18 11:02 02/01/18 16:18 02/02/18 09:00 02/03/18 05:20 Blood Urea Nitrogen 35 MG/DL 36 MG/DL 47 MG/DL 40 MG/DL Creatinine 1.28 MG/DL 1.40 MG/DL 1.50 MG/DL 1.12 MG/DL Random Glucose 218 MG/DL 208 MG/DL 307 MG/DL 256 MG/DL Total Protein 5.8 GM/DL 5.7 GM/DL 6.4 GM/DL Albumin 1.4 GM/DL 1.3 GM/DL 1.3 GM/DL Calcium Level 7.8 MG/DL 7.6 MG/DL 7.9 MG/DL 8.8 MG/DL Alkaline Phosphatase 114 U/L 176 U/L 312 U/L Aspartate Amino Transf (AST/SGOT) 37 U/L 82 U/L 227 U/L Alanine Aminotransferase (ALT/SGPT) 31 U/L 47 U/L 143 U/L Total Bilirubin 0.9 MG/DL 0.9 MG/DL 1.0 MG/DL Sodium Level 141 MEQ/L 141 MEQ/L 140 MEQ/L 142 MEQ/L Potassium Level 3.8 MEQ/L 3.7 MEQ/L 3.5 MEQ/L 3.8 MEQ/L Chloride Level 103 MEQ/L 102 MEQ/L 99 MEQ/L 101 MEQ/L Carbon Dioxide Level 29.5 MEQ/L 32.6 MEQ/L 33.9 MEQ/L 36.3 MEQ/L Anion Gap 9 MEQ/L 6 MEQ/L 7 MEQ/L 5 MEQ/L Estimat Glomerular Filtration Rate 42 ML/MIN 38 ML/MIN 35 ML/MIN 49 ML/MIN Phosphorus Level 2.4 MG/DL Magnesium Level 2.2 MG/DL Lactic Acid Level 2.8 mmol/L Troponin I LESS THAN 0.02 NG/ML Microbiology Date/Time Source Procedure Growth Status 02/01/18 05:08 Blood Peripheral Aerobic Blood Culture - Final S. Aureus Mrsa Resulted 02/01/18 05:08 Blood Peripheral Anaerobic Blood Culture - Preliminary NO GROWTH IN 1 DAY Resulted 02/01/18 05:00 Blood Peripheral Aerobic Blood Culture - Final S. Aureus Mrsa Resulted 02/01/18 05:00 Blood Peripheral Anaerobic Blood Culture - Preliminary NO GROWTH IN 1 DAY Resulted 01/31/18 14:04 Bronchial Washings Left Lower Lobe Acid Fast Stain - Final NO ACID FAST BACILLI SEEN Resulted 01/31/18 14:04 Bronchial Washings Left Lower Lobe Mycobacterial Culture Pending Resulted 01/31/18 14:04 Bronchial Washings Left Lower Lobe Fungal Smear - Final NO FUNGAL ELEMENTS SEEN. Resulted 01/31/18 14:04 Bronchial Washings Left Lower Lobe Fungal Culture Pending Resulted 01/31/18 14:04 Bronchial Washings Left Lower Lobe Gram Stain - Final Complete 01/31/18 14:04 Bronchial Culture - Final S. Aureus Mrsa Complete Imaging Last Impressions Chest X-Ray 02/02/18 0000 Signed Impressions: Service Date/Time: Friday, February 02, 2018 07:35 - CONCLUSION: 1. Mild interval decrease in the size of the tiny right apical pneumothorax. 2. Dense alveolar airspace disease remains in both lungs. Kevin Tello MD Chest CT 01/30/18 0000 Signed Impressions: Service Date/Time: Tuesday, January 30, 2018 20:07 - CONCLUSION: 1. Dense consolidation throughout the left lingula and left lower lobe. There is more patchy areas of consolidation in the upper lobes bilaterally. This pattern is most suggestive of inflammatory/infectious processes. 2. Mild left pleural effusion. 3. Status post gastric surgery/bypass with a mild hiatal hernia. Mcihael Gabriel MD Physical Exam CONSTITUTIONAL/GENERAL: Opens eyes when stimulated, on the vent, NAD SKIN: No jaundice, rashes, or lesions. Ecchymoses on upper extremities. Skin temperature appropriate. HEAD: Atraumatic. Normocephalic. EYES: Pupils equal and round and reactive. Extraocular motions intact. No scleral icterus. No injection or drainage. ENT: No nasal discharge, orally intubated NECK: Supple, nontender. CARDIOVASCULAR: Regular rate and rhythm without murmurs, gallops, or rubs. RESPIRATORY/CHEST: Symmetric, unlabored respirations. Rhonchi on L. CT on R GASTROINTESTINAL: Abdomen soft, nondistended. No organomegaly. Mild grimacing during palpation, not guarding. GENITOURINARY: Without palpable bladder distension. Alexandre catheter in place. MUSCULOSKELETAL: Extremities without clubbing, cyanosis, + edema. . NEUROLOGICAL: sedated, PSYCHIATRIC: unable to assess LINE: no evidence of infection Assessment & Plan Remarks IMPRESSION MRSA PNA Acute VDRF High grade , sustained MRSA bacteremia ? endovascular source 2 D echo negative PLAN Continue zyvox Continue vancomycin Consult cardiology for GRANT Repeat BC to document clearing Follow C/S Monitor progress Spoke with daughters at bedside Monse Mello MD Feb 03, 2018 09:50
--- NOTE | 2018-02-03 11:14 | RADRPT ---
EXAM DATE/TIME: 02/03/2018 10:43 [facility] COMPARISON: CHEST SINGLE AP, February 02, 2018, 7:35. INDICATIONS : F/U pneumonia and right pneumothorax. MEDICAL HISTORY : None. SURGICAL HISTORY : None. ENCOUNTER: Subsequent ACUITY: 4 - 6 days PAIN SCORE: Non-responsive. LOCATION: Bilateral chest FINDINGS: 2 AP portable semierect views of the chest were obtained and demonstrate no definite pneumothorax. Ri ght-sided chest tube remains in place. The right subclavian central venous line remains in place. The endotracheal tube is present with the tip approximately 2.5 cm above the thiago. A nasogastric tube is again seen coursing through the esophagus into the stomach. The heart size is at the upper limits of normal. Alveolar opacities remain in the perihilar regions and both lung bases without significant change. The left costophrenic angle remains blunted. Subcutaneous emphysema is noted over the right lateral chest wall. CONCLUSION: 1. There is no definite visualized pneumothorax on the current study. 2. Consolidative opacities remain in both lungs without significant change. There is apparent left ef fusion. Kevin Tello MD on February 03, 2018 at 11:10 Board Certified Radiologist. This report was verified electronically.
[2018-02-03] MEDS: LINEZOLID 600 MG PREMIX 300 ML IV SCH (12:38)
[2018-02-03] MEDS: MORPHINE SULFATE 4 MG/ML INJ IV PUSH PRN ×2 (12:38→20:18)
[2018-02-03] MEDS ORDERED: VANCOMYCIN INJ 1,750 MG in SODIUM CHLORID 0.9% 500 ML INJ 500 ML IV ONE (13:00)
--- NOTE | 2018-02-03 16:20 | HHI.CCPN ---
Subjective Remarks/Hospital Course 01/30: 62-year-old female presents for evaluation of increasing shortness of breath and chest pain. She reports 1 week of coughing 3 days of pain in her left chest which radiates to her back, which prompted the visit to the emergency room yesterday. She rates her pain a 6 out of 10. She reports fevers , chills, fatigue, mild nausea. She denies any abdominal pain, vomiting. Patient denies any significant past medical history. Symptom onset was gradual , symptom severity is severe, there are no alleviating factors. Patient states that she has been taking the azithromycin antibiotics that were prescribed to her. She denies any current or historical tobacco use. 01/31: Intubated at 1 AM this morning and placed on mechanical ventilation due to worsening respiratory distress. Currently sedated, orally intubated on mechanical ventilation. 02/01: Remains sedated, orally intubated on mechanical ventilation. Went into A. fib with RVR this morning. Loaded with amiodarone, started on amiodarone drip and given digoxin 0.5 mg IV 02/02: Remains sedated, orally intubated on mechanical ventilation. Right sided pigtail catheter in place with 1+ air leak. Converted to sinus rhythm overnight. Remains on amiodarone gtt. 02/03: Remains sedated, orally intubated on mechanical ventilation. 1+ air leak and right sided pigtail catheter. Tolerating tube feeds. Remains on amiodarone gtt. Objective Vital Signs Date Time Temp Pulse Resp B/P (MAP) Pulse Ox O2 Delivery O2 Flow Rate FiO2 02/03/18 14:54 95 50 02/03/18 12:00 99.0 80 22 153/70 (97) 02/01/18 19:00 Mechanical Ventilator 01/30/18 18:25 2.00 Intake and Output 02/03/18 02/03/18 02/04/18 08:00 16:00 00:00 Intake Total 1174 ml Output Total 1010 ml Balance 164 ml Result Diagram: 02/03/18 0520 02/03/18 0520 Imaging Last 24 hours Impressions Chest X-Ray 01/30/18 0886 Signed Impressions: Service Date/Time: Tuesday, January 30, 2018 16:01 - CONCLUSION: 1. Bilateral airspace disease with significant consolidation in the left base. 2. Elevated left hemidiaphragm versus eventration. Ramon Blunt MD Chest CT 01/30/18 0000 Signed Impressions: Service Date/Time: Tuesday, January 30, 2018 20:07 - CONCLUSION: 1. Dense consolidation throughout the left lingula and left lower lobe. There is more patchy areas of consolidation in the upper lobes bilaterally. This pattern is most suggestive of inflammatory/infectious processes. 2. Mild left pleural effusion. 3. Status post gastric surgery/bypass with a mild hiatal hernia. Michael Gabriel MD Objective Remarks HEENT/ Neuro: Sedated, orally intubated, Pallor present, no icterus, tongue/ mucosa moist Neck: No JVD Chest/Pulm: on mech vent, air entry decreased bilaterally at bases, scattered rhonchi bilaterally. Right sided pigtail catheter in place with 1+ air leak noted. CVS: S1-S2 regular, no murmur GI/abdomen: soft, nontender, bowel sounds sluggish Extremities: warm bilaterally, bilateral edema A/P Assessment and Plan Acute Respiratory failure Underlying pneumonia Sepsis COPD Right pneumothorax - Antibiotics per ID. On Zyvox. MRSA bacteremia persists from blood culture on 02/01. Dr. Singleton adding IV vancomycin and will be planning GRANT to evaluate heart valves. -Repeat blood cultures per ID. - Bal culture/blood cultures growing MRSA -Legionella and strep pneumo antigen negative -Consulted ID for sepsis/pneumonia - Dr. Singleton following. - DuoNeb scheduled and when necessary - Titrate off IV steroids by 02/03 - Right sided pigtail catheter in place with 1+ air leak Acute kidney injury - Dehydration - s/p IV fluids resuscitation. KVO IVF - Strict I's and O's - Monitor trend of creatinine and electrolytes A. fib with RVR (converted to RSR 02/02) -Continue amiodarone gtt. Digoxin 0.5 mg IV x 1 on 02/01. DVT GI prophylaxis - Teds SCDs - Subcutaneous heparin - Pepcid Updated patient's daughter at bedside regarding current clinical status and plan of care and she voiced understanding. Lines: Right subclavian central line inserted 02/01 Critical Care: The total critical care time was 35 minutes. Time to perform other separately billable procedures was not included in the critical care time. Luis Felipe Choe MD Feb 03, 2018 16:20
[2018-02-03] MEDS: fentaNYL 2,500 MCG/NS 250 ML IV PRN (17:20)
[2018-02-03] MEDS: AMIODARONE INJ 450 MG in SODIUM CHLOR 0.9% (EXCEL) INJ 241 ML IV PRN (17:45)
[2018-02-03] MEDS: RESP: ALBUTEROL 2.5 MG/IPRATROPIUM 0.5 MG NEB (PRN) INH (20:13)
[2018-02-03] MEDS: SODIUM CHLORIDE 0.9% FLUSH 10 ML FLUSH IV FLUSH SCH (20:19)
[2018-02-04] VITALS (21 sets, daily range): BP systolic 133–203; BP diastolic 65–92; PULSE 65–104; RESP 16–23; TEMP 98.2–98.7; O2SAT 91–100
[2018-02-04] MEDS: LINEZOLID 600 MG PREMIX 300 ML IV SCH ×2 (01:44→12:21)
--- NOTE | 2018-02-04 03:12 | RADRPT ---
EXAM DATE/TIME: 02/04/2018 02:48 [facility] COMPARISON: CHEST SINGLE AP, February 03, 2018, 10:43. INDICATIONS : Shortness of breath, evaluate known pneumothorax on the right, possible left pneumothorax. MEDICAL HISTORY : None. SURGICAL HISTORY : None. ENCOUNTER: Subsequent ACUITY: 4 - 6 days PAIN SCORE: Non-responsive. LOCATION: Bilateral chest FINDINGS: Endotracheal tube, nasogastric tube, right subclavian central line and right thoracostomy tube are st able in position. There is a large left pneumothorax with developing tension. Parenchymal disease pre sent throughout the right lung, grossly stable. CONCLUSION: Large left pneumothorax with developing tension. Rose Mary in [facility] [place] and she indicated that she would contact Dr. Casey Holloway MD on February 04, 2018 at 3:04 Board Certified Radiologist. This report was verified electronically.
[2018-02-04] MEDS: INSULIN ASPART SUPPLEMENTAL SCALE SQ SCH ×5 (04:00→20:00)
[2018-02-04] MEDS: CHLORHEXIDINE GLUCONATE 2 % 1 PACK (2 CLOTHS) TOP SCH (04:00)
--- NOTE | 2018-02-04 05:15 | PD.PROCEDR ---
Procedure Note Procedure Chest tube placement for left-sided tension pneumothorax Procedure: CHEST TUBE Indication: Large pneumothorax Performed by: Lance Tapia time out procedure was performed Initials Consent obtained JV Correct patient JV Correct procedure JV Correct site JV Correct positioning JV Correct supplies JV Patient was positioned, prepped and draped in usual sterile fashion. ccs 1% Lidocaine was used to anesthetize the area. An incision was made and blunt dissection was performed and curved forceps were used to enter the pleural space. A 10 fr chest tube was placed to 15cm. The tube was secured and taped. A chest xray was ordered to evaluate for placement of the chest tube. A pigtail catheter was placed using the seldinger technique. Initial Fluid Removed: 50 Patient tolerated the procedure well and there were no complications. Lance Peña MD Feb 04, 2018 05:15
[2018-02-04] MEDS: HEPARIN SODIUM - SQ 10,000 UNITS/ML VIAL SQ SCH ×3 (05:35→21:16)
--- NOTE | 2018-02-04 05:42 | RADRPT ---
EXAM DATE/TIME: 02/04/2018 04:18 [facility] COMPARISON: CHEST SINGLE AP, February 04, 2018, 2:48. INDICATIONS : Left sided chest tube placement. MEDICAL HISTORY : None. SURGICAL HISTORY : None. ENCOUNTER: Initial ACUITY: 1 day PAIN SCORE: Non-responsive. LOCATION: Bilateral chest FINDINGS: There has been interval placement of a left thoracostomy tube. Near-complete resolution of left pneum othorax with about 6X7 millimeters persistent separation of left apical pleural layers. Support lines and tubes are otherwise stable. Diffuse bilateral infiltrates are grossly stable. Cardiac contours a re stable with resolution of midline shift CONCLUSION: Interval left thoracostomy tube placement with near complete resolution of left pneumothorax Michael Holloway MD on February 04, 2018 at 5:39 Board Certified Radiologist. This report was verified electronically.
[2018-02-04] MEDS: fentaNYL 2,500 MCG/NS 250 ML IV PRN ×3 (06:23→19:52)
[2018-02-04] MEDS: MIDAZOLAM 100 MG/NS 100 ML DRIP Premix IV PRN ×3 (06:24→21:20)
[2018-02-04 06:31] LABS: AUTOMATED NEUTROPHIL # 17.8 TH/MM3 (1.8-7.7); BASOPHIL % 0.2 % (0.0-2.0); HEMATOCRIT 31.5 % (35.0-46.0); HEMOGLOBIN 9.9 GM/DL (11.6-15.3); LYMPH % 4.1 % (9.0-44.0); LYMPHOCYTE # 0.8 TH/MM3 (1.0-4.8); MEAN CELL VOLUME 86.4 FL (80.0-100.0); MEAN CORPUSCULAR HEMOGLOBIN 27.2 PG (27.0-34.0); MEAN CORPUSCULAR HGB CONC 31.5 % (32.0-36.0); MEAN PLATELET VOLUME 8.9 FL (7.0-11.0); MONO % 2.9 % (0.0-8.0); MONOCYTE # 0.6 TH/MM3 (0-0.9); NEUT % 92.8 % (16.0-70.0); PLATELET COUNT 204 TH/MM3 (150-450); RED BLOOD COUNT 3.65 MIL/MM3 (4.00-5.30); RED CELL DISTRIBUTION WIDTH 16.7 % (11.6-17.2); WHITE BLOOD COUNT 19.1 TH/MM3 (4.0-11.0)
[2018-02-04] MEDS: AMIODARONE INJ 450 MG in SODIUM CHLOR 0.9% (EXCEL) INJ 241 ML IV PRN ×2 (06:48→10:32)
[2018-02-04 06:57] LABS: ALBUMIN 1.2 GM/DL (3.4-5.0); ALT (GPT) 205 U/L (10-53); AST (GOT) 234 U/L (15-37); BICARBONATE 39.3 MEQ/L (21.0-32.0); BLOOD UREA NITROGEN 36 MG/DL (7-18); CALCIUM 8.5 MG/DL (8.5-10.1); CHLORIDE 106 MEQ/L (98-107); CREATININE 0.86 MG/DL (0.50-1.00); GLOMERULAR FILTRATION RATE 67 ML/MIN (>89); GLUCOSE,RANDOM 248 MG/DL (74-106); SODIUM (NA) 147 MEQ/L (136-145)
[2018-02-04 07:00] LABS: ALKALINE PHOSPHATASE 297 U/L (45-117); RANDOM VANCOMYCIN 12.5 COMMENT; TOTAL BILIRUBIN ADULT 0.7 MG/DL (0.2-1.0); TOTAL PROTEIN 6.2 GM/DL (6.4-8.2)
[2018-02-04] MEDS: SODIUM CHLORIDE 0.9% FLUSH 10 ML FLUSH IV FLUSH SCH ×2 (07:58→21:15)
[2018-02-04] MEDS: CHLORHEXIDINE 0.12% (ORAL KIT) 15 ML CUP MT SCH ×2 (07:58→21:19)
[2018-02-04] MEDS: FAMOTIDINE 20 MG TAB PO SCH ×2 (07:59→21:14)
[2018-02-04] MEDS: DOCUSATE SODIUM 50 MG/SENNA 8.6 MG TAB PO SCH ×2 (07:59→21:00)
[2018-02-04 09:02] LABS: DOHLE BODIES PRESENT (NONE SEEN); TOXIC GRANULATION 1+ (NORMAL)
--- NOTE | 2018-02-04 13:46 | HHI.CCPN ---
Subjective Remarks/Hospital Course 01/30: 62-year-old female presents for evaluation of increasing shortness of breath and chest pain. She reports 1 week of coughing 3 days of pain in her left chest which radiates to her back, which prompted the visit to the emergency room yesterday. She rates her pain a 6 out of 10. She reports fevers , chills, fatigue, mild nausea. She denies any abdominal pain, vomiting. Patient denies any significant past medical history. Symptom onset was gradual , symptom severity is severe, there are no alleviating factors. Patient states that she has been taking the azithromycin antibiotics that were prescribed to her. She denies any current or historical tobacco use. 01/31: Intubated at 1 AM this morning and placed on mechanical ventilation due to worsening respiratory distress. Currently sedated, orally intubated on mechanical ventilation. 02/01: Remains sedated, orally intubated on mechanical ventilation. Went into A. fib with RVR this morning. Loaded with amiodarone, started on amiodarone drip and given digoxin 0.5 mg IV 02/02: Remains sedated, orally intubated on mechanical ventilation. Right sided pigtail catheter in place with 1+ air leak. Converted to sinus rhythm overnight. Remains on amiodarone gtt. 02/03: Remains sedated, orally intubated on mechanical ventilation. 1+ air leak and right sided pigtail catheter. Tolerating tube feeds. Remains on amiodarone gtt. 02/04: Noted to have pneumothorax on the left side this morning on routine chest x -ray which appeared to be under tension. Right sided pigtail catheter placed by Dr. Peña with reexpansion of lung. Patient remains sedated, orally intubated on mechanical ventilation. 1+ airleak and bilateral chest tubes noted. Objective Vital Signs Date Time Temp Pulse Resp B/P (MAP) Pulse Ox O2 Delivery O2 Flow Rate FiO2 02/04/18 12:00 50 02/04/18 12:00 79 02/04/18 12:00 98.2 23 158/72 (100) 95 02/01/18 19:00 Mechanical Ventilator Intake and Output 02/04/18 02/04/18 02/05/18 08:00 16:00 00:00 Intake Total 2061 ml Output Total 1725 ml Balance 336 ml Result Diagram: 02/04/18 0600 02/04/18 0539 Imaging Last 24 hours Impressions Chest X-Ray 01/30/18 1556 Signed Impressions: Service Date/Time: Tuesday, January 30, 2018 16:01 - CONCLUSION: 1. Bilateral airspace disease with significant consolidation in the left base. 2. Elevated left hemidiaphragm versus eventration. Ramon Blunt MD Chest CT 01/30/18 0000 Signed Impressions: Service Date/Time: Tuesday, January 30, 2018 20:07 - CONCLUSION: 1. Dense consolidation throughout the left lingula and left lower lobe. There is more patchy areas of consolidation in the upper lobes bilaterally. This pattern is most suggestive of inflammatory/infectious processes. 2. Mild left pleural effusion. 3. Status post gastric surgery/bypass with a mild hiatal hernia. Michael Gabriel MD Objective Remarks HEENT/ Neuro: Sedated, orally intubated, Pallor present, no icterus, tongue/ mucosa moist Neck: No JVD Chest/Pulm: on mech vent, air entry decreased bilaterally at bases, scattered rhonchi bilaterally. Bilateral pigtail catheters in place with 1+ air leak noted. CVS: S1-S2 regular, no murmur GI/abdomen: soft, nontender, bowel sounds sluggish Extremities: warm bilaterally, bilateral edema A/P Assessment and Plan Acute Respiratory failure MRSA pneumonia MRSA bacteremia Sepsis COPD bilateral pneumothorax - Antibiotics per ID. On Zyvox. MRSA bacteremia persists from blood culture on 02/01. Dr. Singleton added IV vancomycin and consulted cardiology for GRANT to evaluate heart valves. -Repeat blood cultures per ID. - Bal culture/blood cultures growing MRSA -Legionella and strep pneumo antigen negative -Consulted ID for sepsis/pneumonia - Dr. Singleton following. - DuoNeb scheduled and when necessary - Titrated off IV steroids by 02/03 -Bilateral pigtail catheters in place with 1+ air leak Acute kidney injury - Dehydration - s/p IV fluids resuscitation. KVO IVF - Strict I's and O's - Monitor trend of creatinine and electrolytes A. fib with RVR (converted to RSR 02/02) -Continue amiodarone gtt. Digoxin 0.5 mg IV x 1 on 02/01. DVT GI prophylaxis - Teds SCDs - Subcutaneous heparin - Pepcid Updated patient's daughter at bedside on 02/03 regarding current clinical status and plan of care and she voiced understanding. Lines: Right subclavian central line inserted 02/01 Critical Care: The total critical care time was 35 minutes. Time to perform other separately billable procedures was not included in the critical care time. Luis Felipe Choe MD Feb 04, 2018 13:46
[2018-02-04] MEDS ORDERED: VANCOMYCIN INJ 1,750 MG in SODIUM CHLORID 0.9% 500 ML INJ 500 ML IV ONE (14:00)
[2018-02-04] MEDS: hydrALAZINE HCL 20 MG/ML VIAL IV PUSH PRN (14:04)
[2018-02-04] MEDS ORDERED: LORazepam 2 MG/ML VIAL IV ONE (15:00)
[2018-02-04] MEDS ORDERED: diphenhydrAMINE HCL 50 MG/ML VIAL ONE (15:03)
[2018-02-04] MEDS ORDERED: DEXAMETHASONE SOD PHOS 4 MG/ML VIAL IV PUSH ONE (15:15)
[2018-02-04] MEDS ORDERED: diphenhydrAMINE HCL 50 MG/ML VIAL IV PUSH ONE (15:15)
--- NOTE | 2018-02-04 15:28 | HHI.IDPN ---
Subjective Subjective Remarks events noted Spontaneous pneumothorax on R side - sp emergent CT placement remains on vent no fever WBC down to 19 K Antibiotics zyvox Vanco IV Past Medical History Gastric bypass Tonsillectomy Allergies: Coded Allergies: No Known Allergies (Unverified , 01/30/18) Objective . Vital Signs Date Time Temp Pulse Resp B/P (MAP) Pulse Ox O2 Delivery O2 Flow Rate FiO2 02/04/18 12:00 50 02/04/18 12:00 79 02/04/18 12:00 98.2 79 23 158/72 (100) 95 02/04/18 10:32 94 168/69 02/04/18 10:00 78 02/04/18 08:36 99 50 02/04/18 08:00 50 02/04/18 08:00 71 02/04/18 08:00 98.4 71 18 164/77 (106) 98 02/04/18 06:48 67 02/04/18 06:00 65 02/04/18 04:05 100 50 02/04/18 04:00 98.4 84 16 177/79 (111) 97 02/04/18 04:00 50 02/04/18 04:00 72 02/04/18 02:00 94 02/04/18 00:20 96 50 02/04/18 00:00 50 02/04/18 00:00 68 02/04/18 00:00 98.2 70 16 165/77 (106) 96 02/03/18 22:00 69 02/03/18 20:11 96 50 02/03/18 20:00 98.0 81 19 197/91 (126) 95 02/03/18 20:00 83 02/03/18 20:00 50 02/03/18 18:00 79 02/03/18 17:45 77 155/71 02/03/18 16:00 79 02/03/18 16:00 99.3 82 21 190/84 (119) 97 02/03/18 16:00 50 . Laboratory Tests Test 02/03/18 05:20 02/04/18 06:00 White Blood Count 28.0 TH/MM3 19.1 TH/MM3 Red Blood Count 3.70 MIL/MM3 3.65 MIL/MM3 Hemoglobin 10.1 GM/DL 9.9 GM/DL Hematocrit 31.6 % 31.5 % Mean Corpuscular Volume 85.4 FL 86.4 FL Mean Corpuscular Hemoglobin 27.2 PG 27.2 PG Mean Corpuscular Hemoglobin Concent 31.9 % 31.5 % Red Cell Distribution Width 16.6 % 16.7 % Platelet Count 218 TH/MM3 204 TH/MM3 Mean Platelet Volume 9.1 FL 8.9 FL CBC Comment AUTO DIFF AUTO DIFF Differential Total Cells Counted 100 Neutrophils % (Manual) 91 % Band Neutrophils % 7 % Monocytes % 1 % Eosinophils % 1 % Neutrophils # (Manual) 27.4 TH/MM3 Differential Comment FINAL DIFF MANUAL AUTO DIFF CONFIRMED Platelet Estimate NORMAL NORMAL Platelet Morphology Comment NORMAL NORMAL Neutrophils (%) (Auto) 92.8 % Lymphocytes (%) (Auto) 4.1 % Monocytes (%) (Auto) 2.9 % Eosinophils (%) (Auto) 0.0 % Basophils (%) (Auto) 0.2 % Neutrophils # (Auto) 17.8 TH/MM3 Lymphocytes # (Auto) 0.8 TH/MM3 Monocytes # (Auto) 0.6 TH/MM3 Eosinophils # (Auto) 0.0 TH/MM3 Basophils # (Auto) 0.0 TH/MM3 Toxic Granulation 1+ Dohle Bodies PRESENT Laboratory Tests Test 02/03/18 05:20 02/04/18 05:39 Blood Urea Nitrogen 40 MG/DL 36 MG/DL Creatinine 1.12 MG/DL 0.86 MG/DL Random Glucose 256 MG/DL 248 MG/DL Total Protein 6.4 GM/DL 6.2 GM/DL Albumin 1.3 GM/DL 1.2 GM/DL Calcium Level 8.8 MG/DL 8.5 MG/DL Alkaline Phosphatase 312 U/L 297 U/L Aspartate Amino Transf (AST/SGOT) 227 U/L 234 U/L Alanine Aminotransferase (ALT/SGPT) 143 U/L 205 U/L Total Bilirubin 1.0 MG/DL 0.7 MG/DL Sodium Level 142 MEQ/L 147 MEQ/L Potassium Level 3.8 MEQ/L 4.1 MEQ/L Chloride Level 101 MEQ/L 106 MEQ/L Carbon Dioxide Level 36.3 MEQ/L 39.3 MEQ/L Anion Gap 5 MEQ/L 2 MEQ/L Estimat Glomerular Filtration Rate 49 ML/MIN 67 ML/MIN Microbiology Date/Time Source Procedure Growth Status 02/04/18 06:16 Blood Peripheral Aerobic Blood Culture Pending Received 02/04/18 06:16 Blood Peripheral Anaerobic Blood Culture Pending Received 02/03/18 14:20 Blood Peripheral Aerobic Blood Culture - Preliminary NO GROWTH IN 1 DAY Resulted 02/03/18 14:20 Blood Peripheral Anaerobic Blood Culture - Preliminary NO GROWTH IN 1 DAY Resulted Imaging Last Impressions Chest X-Ray 02/02/18 0000 Signed Impressions: Service Date/Time: Friday, February 02, 2018 07:35 - CONCLUSION: 1. Mild interval decrease in the size of the tiny right apical pneumothorax. 2. Dense alveolar airspace disease remains in both lungs. Kevin Tello MD Chest CT 01/30/18 0000 Signed Impressions: Service Date/Time: Tuesday, January 30, 2018 20:07 - CONCLUSION: 1. Dense consolidation throughout the left lingula and left lower lobe. There is more patchy areas of consolidation in the upper lobes bilaterally. This pattern is most suggestive of inflammatory/infectious processes. 2. Mild left pleural effusion. 3. Status post gastric surgery/bypass with a mild hiatal hernia. Michael Gabriel MD Physical Exam CONSTITUTIONAL/GENERAL: Opens eyes when stimulated, on the vent, NAD SKIN: No jaundice, rashes, or lesions. Ecchymoses on upper extremities. Skin temperature appropriate. HEAD: Atraumatic. Normocephalic. EYES: Pupils equal and round and reactive. Extraocular motions intact. No scleral icterus. No injection or drainage. ENT: No nasal discharge, orally intubated NECK: Supple, nontender. CARDIOVASCULAR: Regular rate and rhythm without murmurs, gallops, or rubs. RESPIRATORY/CHEST: Symmetric, unlabored respirations. Rhonchi on L. CT on R GASTROINTESTINAL: Abdomen soft, nondistended. No organomegaly. Mild grimacing during palpation, not guarding. GENITOURINARY: Without palpable bladder distension. Alexandre catheter in place. MUSCULOSKELETAL: Extremities without clubbing, cyanosis, + 3 diffuse edema. . NEUROLOGICAL: sedated, PSYCHIATRIC: unable to assess LINE: no evidence of infection Assessment & Plan Remarks IMPRESSION MRSA PNA Acute VDRF High grade , sustained MRSA bacteremia ? endovascular source 2 D echo negative PLAN Continue zyvox Continue vancomycin awaiting GRANT Fu repeat BC to document clearing Follow C/S Monitor progress Spoke with daughter at bedside Carlene Singleton MD Feb 04, 2018 15:28
--- NOTE | 2018-02-04 15:29 | RADRPT ---
EXAM DATE/TIME: 02/04/2018 14:59 [facility] COMPARISON: CHEST SINGLE AP, February 04, 2018, 4:18. INDICATIONS : Respiratory distress and increased swelling in face and neck , possible allergic reaction to medicati on per RN MEDICAL HISTORY : Sepsis. SURGICAL HISTORY : bilateral chest tubes ENCOUNTER: Subsequent ACUITY: 1 day PAIN SCORE: Non-responsive. LOCATION: Bilateral chest FINDINGS: The cardiac silhouette is normal in transverse diameter. Support lines and tubes are in satisfactory position. Severe subcutaneous emphysema is present. The findings have worsened when compared with the prior examination. There is a new right pneumothorax without tension. There is worsening perihilar e narendra versus pneumonia. CONCLUSION: 1. Worsening subcutaneous emphysema with new right pneumothorax without tension 2. Increasing perihilar pulmonary edema. To Vaughn MD on February 04, 2018 at 15:22 Board Certified Radiologist. This report was verified electronically.
[2018-02-04 15:37] LABS: AUTOMATED NEUTROPHIL # 17.5 TH/MM3 (1.8-7.7); BASOPHIL % 0.2 % (0.0-2.0); EOSINOPHIL # 0.1 TH/MM3 (0-0.4); EOSINOPHIL % 0.3 % (0.0-4.0); HEMATOCRIT 33.3 % (35.0-46.0); HEMOGLOBIN 10.6 GM/DL (11.6-15.3); LYMPH % 5.9 % (9.0-44.0); LYMPHOCYTE # 1.1 TH/MM3 (1.0-4.8); MEAN CELL VOLUME 85.8 FL (80.0-100.0); MEAN CORPUSCULAR HEMOGLOBIN 27.2 PG (27.0-34.0); MEAN CORPUSCULAR HGB CONC 31.7 % (32.0-36.0); MEAN PLATELET VOLUME 8.6 FL (7.0-11.0); MONO % 1.6 % (0.0-8.0); MONOCYTE # 0.3 TH/MM3 (0-0.9); PLATELET COUNT 221 TH/MM3 (150-450); RED BLOOD COUNT 3.88 MIL/MM3 (4.00-5.30); RED CELL DISTRIBUTION WIDTH 16.6 % (11.6-17.2)
[2018-02-04 15:55] LABS: ALBUMIN 1.2 GM/DL (3.4-5.0); ALT (GPT) 223 U/L (10-53); AST (GOT) 254 U/L (15-37); BICARBONATE 38.7 MEQ/L (21.0-32.0); BLOOD UREA NITROGEN 31 MG/DL (7-18); CALCIUM 8.5 MG/DL (8.5-10.1); CHLORIDE 107 MEQ/L (98-107); CREATININE 0.71 MG/DL (0.50-1.00); GLOMERULAR FILTRATION RATE 83 ML/MIN (>89); GLUCOSE,RANDOM 223 MG/DL (74-106); SODIUM (NA) 148 MEQ/L (136-145)
[2018-02-04 15:58] LABS: ALKALINE PHOSPHATASE 315 U/L (45-117); TOTAL BILIRUBIN ADULT 0.9 MG/DL (0.2-1.0); TOTAL PROTEIN 6.1 GM/DL (6.4-8.2); TROPONIN I LESS THAN 0.02 NG/ML (0.02-0.05)
[2018-02-04 16:56] LABS: BANDS 5 % (0-6); LYMPHOCYTES 3 % (9-44); MONOCYTES 2 % (0-8); MYELOCYTES 4 % (0-0); NEUTROPHIL # MANUAL DIFF 18.1 TH/MM3 (1.8-7.7); POLYS (SEG NEUTROPHILS) 86 % (16-70)
[2018-02-04 16:59] LABS: DOHLE BODIES PRESENT (NONE SEEN)
--- NOTE | 2018-02-04 17:39 | RADRPT ---
EXAM DATE/TIME: 02/04/2018 17:03 [facility] COMPARISON: CHEST SINGLE AP, February 04, 2018, 14:59. INDICATIONS : Follow up pneumothorax. MEDICAL HISTORY : Sepsis. SURGICAL HISTORY : Bilateral chest tubes. ENCOUNTER: Subsequent ACUITY: 1 day PAIN SCORE: Non-responsive. LOCATION: Bilateral chest FINDINGS: Extensive subcutaneous emphysema about the entire field of view the exam, stable in severity. A ches t drainage catheter remains projecting in the lateral right upper chest. There is persistent right p neumothorax with separation of visceral and parietal pleura at the apex measuring 1.5 cm. Patchy are as of infiltrate scattered throughout both lungs, similar in distribution and severity when compared to prior examination. There is persistent loss of delineation of the left hemidiaphragm. Gastric tu be traverses the field of view. Endotracheal tube tip well above the thiago. Right subclavian nehal ter tip projects of the origin of the superior vena cava. CONCLUSION: Persistent 1.5 cm right pneumothorax with chest drainage catheter in place stop extensive diffuse german ateral subcutaneous emphysema, stable. Ilya Harris MD on February 04, 2018 at 17:35 Board Certified Radiologist. This report was verified electronically.
--- NOTE | 2018-02-04 19:06 | PD.CONS ---
Consult Service Palliative Care . Consult Requested By Dr. Avel Choe. . Primary Care Physician No Primary Care Physician . Reason for Consultation a. To assist with evaluation and management of symptoms including: dyspnea; encephalopathy, pain b. To assist medical decision maker(s) with: better understanding of current medical conditions; weighing benefits/burdens of medical treatment options; making medical treatment decisions. . HPI History of Present Illness Ms. Tinoco is a 62-year-old female without significant past medical history who presented to the emergency department on 01/30/18 complaining of shortness of breath and chest pain. She indicated she had been coughing for approximately 1 week and had been having pain in the left chest radiating to her back for approximately 3 days. The pain was worse with deep inspiration and with any movement. She rated the pain as a 6 out of 10. She also reported subjective fevers, chills, fatigue, and mild nausea. There is no abdominal pain or vomiting. She had been seen at the emergency department in [place] the day before where she was diagnosed with pneumonia (chest x-ray showed left basilar consolidation at that time) and discharged home on azithromycin.. The patient has never smoked, her current partner is apparently a heavy smoker. Family has also learned that the manufactured home she has been living in has a significant amount of mold. Initial vital signs in the emergency department on 01/30/18 were as follows: Temperature 97.1; pulse 93; respiratory rate 20; blood pressure 126/57; pulse oximetry 93% on room air Initial physical examination in the emergency department on 01/30 noted the following: Patient appeared comfortable. Mucous membranes were pink and moist. Patient was slightly tachycardic. There were some scattered expiratory wheezes with coarse breath sounds in the bases. Abdomen was benign. Musculoskeletal exam and neurologic exam were unremarkable. Initial diagnostic testing revealed the following: * CBC showed WBC 13.1; hemoglobin 13.6; platelet count 245. There were 23% band neutrophils. There were 1+ toxic granulations. Dohle bodies were present * Coagulation profile showed PT 10.7; INR 1.1; PTT 29.4 * Chemistry profile showed sodium 134; potassium 4.3; chloride 101; CO2 18.1; anion gap 15; GFR 17; BUN 44; creatinine 2.83; glucose 169 * liver function studies showed total bilirubin 0.8; alkaline phosphatase 247; AST 53; ALT 56; total protein 8.5; albumin 2.8 * Cardiac serology showed troponin less than 0.02; total CK 82 * Arterial blood gases on nasal cannula oxygen at 2 L a minute showed pH 7.33; PCO2 20; PO2 64; bicarbonate 10; base excess -14.5 * Chest x-ray showed bilateral airspace disease with significant consolidation in the left base. The patient was empirically placed on vancomycin and Zosyn. Fluid resuscitation was started with orders of 3 L of IV fluids. BiPAP was ordered. Critical care was consulted. The patient was admitted to the medical intensive care unit. Ms. Tinoco declined rapidly. She required intubation and mechanical ventilation at approximately 1 AM on 01/31/18 due to worsening respiratory distress. Blood and sputum cultures have both grown out staph aureus MRSA. On the morning of 02/01/18 she went into atrial fibrillation with rapid ventricular rate. She was loaded with amiodarone and started on an amiodarone drip and given digoxin. She has developed pneumothoraces on both sides and has chest tubes on both sides. She has required ongoing sedation. At time of my visit, she is minimally responsive. History was obtained from 2 daughters at the bedside as well as medical records. . Function/Cognitive Trajectory The patient's daughters report that the patient was in very good physical health. She lives with her boyfriend who was a smoker. The patient took care of all of her activities of daily living. She was on no prescription medications prior to 01/29/18. She had very few medical complaints. Children are shocked how quickly she became critically ill and how she is not recovering. . Review of Systems Constitutional: COMPLAINS OF: Weight gain, DENIES: Fatigue, Fever, Change in appetite, Night Sweats, Pain, Generalized weakness Eyes: COMPLAINS OF: Vision loss (Wears glasses), DENIES: Diplopia Ears, nose, mouth, throat: DENIES: Tinnitus, Hearing loss, Throat pain, Epistaxis Respiratory: COMPLAINS OF: Cough, Wheezing, Sputum production, Shortness of breath, DENIES: Apneas, Hemoptysis Cardiovascular: COMPLAINS OF: Chest pain, Dyspnea on Exertion, DENIES: Palpitations, Syncope, Lower Extremity Edema Gastrointestinal: DENIES: Black stools, Bloody stools, Constipation, Diarrhea, Nausea, Vomiting, Difficulty Swallowing, Dyspepsia or heartburn Genitourinary: DENIES: Urinary frequency, Urinary incontinence, Hematuria, Dysuria Musculoskeletal: DENIES: Joint pain, Muscle aches, Stiffness, Back pain, Neck pain Integumentary: DENIES: Pruritus, Rash Hematologic/Lymphatics: DENIES: Bruising Immunologic/Allergic: DENIES: Eczema Neurologic: DENIES: Abnormal gait, Headache, Localized weakness, Paresthesias, Seizures, Tremor, Poor Balance Psychiatric: COMPLAINS OF: Depression, DENIES: Anxiety, Confusion, Hallucinations, Agitation Past Family Social History Coded Allergies: No Known Allergies (Unverified , 01/30/18) Past Medical History Morbid obesity status post gastric bypass surgery Mild depression . Past Surgical History Tonsillectomy Gastric bypass surgery "Tummy tuck" "Arm lifts" Bilateral carpal tunnel surgery tubal ligation . Reported Medications Pre hospital medications at home apparently only included the azithromycin she was given in the ED the day before and some naproxen. Patient also took vitamins and supplements. . Current Medications Medications (Trade) Dose Ordered Sig/Tyler Route Start Time Stop Time Status Last Admin (NS Flush) 2 ml UNSCH PRN IV FLUSH 01/30/18 19:00 (NS Flush) 2 ml BID IV FLUSH 01/30/18 21:00 02/04/18 07:58 (Tylenol) 650 mg Q6H PRN PO 01/30/18 19:00 01/30/18 19:48 (Morphine Inj) 2 mg Q2H PRN IV PUSH 01/30/18 19:00 02/03/18 20:18 (Zofran Inj) 4 mg Q6H PRN IV PUSH 01/30/18 19:00 (Restoril) 15 mg HS PRN PO 01/30/18 19:00 (Duoneb Neb) 1 ampule Q2HR NEB PRN INH 01/30/18 19:00 02/03/18 20:13 (Heparin Inj) 5,000 units Q8HR SQ 01/30/18 22:00 02/04/18 12:21 Miscellaneous Information 1 Q361D XX 01/30/18 19:00 01/30/18 22:56 (Chlorhexidine 2% Cloth) 3 pack Taper DAILY@04 TOP 01/31/18 04:00 01/27/19 03:59 02/04/18 04:00 (Chlorhexidine 2% Cloth) 3 pack UNSCH PRN TOP 01/30/18 19:00 (Chiquis-Colace) 1 tab BID PO 01/30/18 21:00 02/04/18 07:59 (Milk Of Magnesia Liq) 30 ml Q12H PRN PO 01/30/18 19:00 (Senokot) 17.2 mg Q12H PRN PO 01/30/18 19:00 (Dulcolax Supp) 10 mg DAILY PRN RECTAL 01/30/18 19:00 (Lactulose Liq) 30 ml DAILY PRN PO 01/30/18 19:00 (Peridex 0.12% Liq) 15 ml BID@08,20 MT 01/31/18 08:00 02/04/18 07:58 Fentanyl Citrate 250 ml @ 20 mls/hr TITRATE PRN IV 01/30/18 23:45 02/04/18 08:27 Midazolam HCl 100 ml @ 5 mls/hr TITRATE PRN IV 01/30/18 23:45 02/04/18 10:49 Linezolid 300 ml @ 300 mls/hr Q12H IV 02/01/18 01:00 02/04/18 12:21 (D50w (Vial) Inj) 50 ml UNSCH PRN IV PUSH 01/31/18 18:15 (Glucagon Inj) 1 mg UNSCH PRN OTHER 01/31/18 18:15 Amiodarone HCl 450 mg/Sodium Chloride 250 ml @ 33.33 mls/ hr Q7H31M PRN IV 02/01/18 07:15 02/04/18 10:32 (NovoLOG SUPPLEMENTAL SCALE) 1 Q4HR SQ 02/02/18 16:00 02/04/18 12:00 (D50w (Vial) Inj) 25 ml UNSCH PRN IV 02/02/18 15:15 (Glucagon Inj) 1 mg UNSCH PRN IM/SQ 02/02/18 15:15 Pharmacy Profile Note 0 ml @ 0 mls/hr UNSCH OTHER 02/02/18 15:15 (Pepcid) 10 mg BID PO 02/02/18 21:00 02/04/18 07:59 (Trandate Inj) 10 mg Q4H PRN IV PUSH 02/04/18 05:00 (Apresoline Inj) 20 mg Q4H PRN IV PUSH 02/04/18 05:00 02/04/18 14:04 . Family History * The patient's father reportedly from complications incurred from a beating while under police custody. * The patient's mother of complications of a bowel obstruction * A brother had lung cancer * A sister had breast cancer * Grandson had leukemia * Family history is also remarkable for heart disease. . Substance Use Tobacco: Lifetime non-smoker. Alcohol: No history of abuse Prescription med abuse: No history of abuse Illicits: No known use of illicits . Psychosocial History The patient is originally from [place]. She moved to [place] around 2008. The patient completed high school and had some college. She worked primarily for the [employer] in the [employer]. The patient was once. That marriage ended in divorce in 2003. The patient had 3 children. One in infancy. She has 2 surviving daughters who both live in [place]--Alona and Zenobia . The patient has 3 grandchildren . Spiritual/Cultural Factors The patient is more spiritual than islam per her daughters. She does not belong to any local hoahaoism. In the past she would describe herself as a christian uatsdin. She would appreciate bsa officer visits. . Living Will: Never completed Health Care Surrogate: Never completed Durable Power of Senior Licensing Manager: Never completed Date completed: Patient has never completed an advanced directive. . Health Care Surrogate(s): There is no written designation of healthcare surrogate. . Documented care wishes: There is no written documentation of healthcare goals/preferences. . Today's verbally stated goals: Patient is minimally responsive and unable to verbally state her healthcare goals or preferences. . Family/friends goals: Given that the patient was in relatively good health so recently, daughters feel the patient would want ongoing aggressive care for the time being. . Ethical and Legal Issues Patient is currently incapacitated to make her own healthcare decisions. It remains unclear if she will regain capacity to do so. While incapacitated, it would be her 2 adult daughters who would have equal healthcare decision-making authority. . Physical Exam Vital Signs Date Time Temp Pulse Resp B/P (MAP) Pulse Ox O2 Delivery O2 Flow Rate FiO2 02/04/18 16:47 80 150/70 (96) 02/04/18 16:14 99 50 02/04/18 16:00 50 02/04/18 16:00 98.6 104 20 203/92 (129) 97 02/04/18 16:00 104 02/04/18 14:00 90 02/04/18 12:08 91 50 02/04/18 12:00 50 02/04/18 12:00 79 02/04/18 12:00 98.2 79 23 158/72 (100) 95 02/04/18 10:32 94 168/69 02/04/18 10:00 78 02/04/18 08:36 99 50 02/04/18 08:00 50 02/04/18 08:00 71 02/04/18 08:00 98.4 71 18 164/77 (106) 98 02/04/18 06:48 67 02/04/18 06:00 65 02/04/18 04:05 100 50 02/04/18 04:00 98.4 84 16 177/79 (111) 97 02/04/18 04:00 50 02/04/18 04:00 72 02/04/18 02:00 94 02/04/18 00:20 96 50 02/04/18 00:00 50 02/04/18 00:00 68 02/04/18 00:00 98.2 70 16 165/77 (106) 96 02/03/18 22:00 69 02/03/18 20:11 96 50 02/03/18 20:00 98.0 81 19 197/91 (126) 95 02/03/18 20:00 83 02/03/18 20:00 50 . 02/04/18 02/05/18 19:00 07:00 Intake Total 568 ml Balance 568 ml Tube Feeding 568 ml . Exam CONSTITUTIONAL/GENERAL: This is an obese patient, minimally responsive, sedated , in the medical intensive care unit bed. No apparent distress. TUBES/LINES/DRAINS: Orotracheal tube; orogastric tube; right subclavian central line; bilateral chest tubes; peripheral IV; soft wrist restraints; sequential compressive devices. SKIN: No jaundice, rashes, or lesions. Ecchymoses on upper extremities. No wounds seen anteriorly. Skin temperature appropriate. Not diaphoretic. HEAD: Atraumatic. Normocephalic. EYES: Pupils equal and round and reactive. Unable to evaluate extraocular movements. No scleral icterus. No injection or drainage. Fundi not examined. ENT: Unable to evaluate hearing. Nose without bleeding or purulent drainage. Throat without visible erythema, exudates, masses, or lesions though difficult to assess adequately with intubations. NECK: Neck somewhat difficult to examine due to obesity. Trachea midline. No palpable thyroid enlargement or nodularity. CARDIOVASCULAR: Intermittently tachycardic with regular rhythm without murmurs, gallops, or rubs. No JVD. Peripheral pulses symmetric. RESPIRATORY/CHEST: Bilateral chest tubes. Symmetric respirations on vent. Decreased air movement at bases. Faint scattered rhonchi bilaterally. GASTROINTESTINAL: Abdomen soft, non-tender, nondistended. No hepato-splenomegaly , or palpable masses. No guarding. Bowel sounds present. GENITOURINARY: Without palpable bladder distension. Alexandre catheter in place. MUSCULOSKELETAL: Extremities without clubbing, cyanosis. Edema noted in all extremities. No mottling . LYMPHATICS: No palpable cervical or supraclavicular adenopathy. NEUROLOGICAL: Sedated. Briefly stirs to loud voice and exam. Does not awaken and unable to follow commands. No spontaneous movements. PSYCHIATRIC: Unable to assess due to level of responsiveness. . Diagnostic Tests Laboratory Laboratory Tests Test 02/02/18 09:00 02/03/18 05:20 02/04/18 05:39 02/04/18 06:00 White Blood Count 22.6 TH/MM3 (4.0-11.0) 28.0 TH/MM3 (4.0-11.0) 19.1 TH/MM3 (4.0-11.0) Red Blood Count 3.51 MIL/MM3 (4.00-5.30) 3.70 MIL/MM3 (4.00-5.30) 3.65 MIL/MM3 (4.00-5.30) Hemoglobin 9.7 GM/DL (11.6-15.3) 10.1 GM/DL (11.6-15.3) 9.9 GM/DL (11.6-15.3) Hematocrit 29.9 % (35.0-46.0) 31.6 % (35.0-46.0) 31.5 % (35.0-46.0) Mean Corpuscular Volume 85.1 FL (80.0-100.0) 85.4 FL (80.0-100.0) 86.4 FL (80.0-100.0) Mean Corpuscular Hemoglobin 27.7 PG (27.0-34.0) 27.2 PG (27.0-34.0) 27.2 PG (27.0-34.0) Mean Corpuscular Hemoglobin Concent 32.5 % (32.0-36.0) 31.9 % (32.0-36.0) 31.5 % (32.0-36.0) Red Cell Distribution Width 16.6 % (11.6-17.2) 16.6 % (11.6-17.2) 16.7 % (11.6-17.2) Platelet Count 203 TH/MM3 (150-450) 218 TH/MM3 (150-450) 204 TH/MM3 (150-450) Mean Platelet Volume 9.0 FL (7.0-11.0) 9.1 FL (7.0-11.0) 8.9 FL (7.0-11.0) Neutrophils (%) (Auto) 96.6 % (16.0-70.0) 92.8 % (16.0-70.0) Lymphocytes (%) (Auto) 1.8 % (9.0-44.0) 4.1 % (9.0-44.0) Monocytes (%) (Auto) 1.5 % (0.0-8.0) 2.9 % (0.0-8.0) Eosinophils (%) (Auto) 0.0 % (0.0-4.0) 0.0 % (0.0-4.0) Basophils (%) (Auto) 0.1 % (0.0-2.0) 0.2 % (0.0-2.0) Neutrophils # (Auto) 21.8 TH/MM3 (1.8-7.7) 17.8 TH/MM3 (1.8-7.7) Lymphocytes # (Auto) 0.4 TH/MM3 (1.0-4.8) 0.8 TH/MM3 (1.0-4.8) Monocytes # (Auto) 0.3 TH/MM3 (0-0.9) 0.6 TH/MM3 (0-0.9) Eosinophils # (Auto) 0.0 TH/MM3 (0-0.4) 0.0 TH/MM3 (0-0.4) Basophils # (Auto) 0.0 TH/MM3 (0-0.2) 0.0 TH/MM3 (0-0.2) CBC Comment AUTO DIFF AUTO DIFF AUTO DIFF Differential Total Cells Counted 100 100 Neutrophils % (Manual) 80 % (16-70) 91 % (16-70) Band Neutrophils % 16 % (0-6) 7 % (0-6) Lymphocytes % 2 % (9-44) Monocytes % 2 % (0-8) 1 % (0-8) Neutrophils # (Manual) 21.7 TH/MM3 (1.8-7.7) 27.4 TH/MM3 (1.8-7.7) Differential Comment FINAL DIFF MANUAL FINAL DIFF MANUAL AUTO DIFF CONFIRMED Toxic Granulation 1+ (NORMAL) 1+ (NORMAL) Dohle Bodies PRESENT (NONE SEEN) PRESENT (NONE SEEN) Platelet Estimate NORMAL (NORMAL) NORMAL (NORMAL) NORMAL (NORMAL) Platelet Morphology Comment NORMAL (NORMAL) NORMAL (NORMAL) NORMAL (NORMAL) Red Cell Morphology Comment NORMAL (NORMAL) Blood Urea Nitrogen 47 MG/DL (7-18) 40 MG/DL (7-18) 36 MG/DL (7-18) Creatinine 1.50 MG/DL (0.50-1.00) 1.12 MG/DL (0.50-1.00) 0.86 MG/DL (0.50-1.00) Random Glucose 307 MG/DL (74-106) 256 MG/DL (74-106) 248 MG/DL (74-106) Total Protein 5.7 GM/DL (6.4-8.2) 6.4 GM/DL (6.4-8.2) 6.2 GM/DL (6.4-8.2) Albumin 1.3 GM/DL (3.4-5.0) 1.3 GM/DL (3.4-5.0) 1.2 GM/DL (3.4-5.0) Calcium Level 7.9 MG/DL (8.5-10.1) 8.8 MG/DL (8.5-10.1) 8.5 MG/DL (8.5-10.1) Alkaline Phosphatase 176 U/L (45-117) 312 U/L (45-117) 297 U/L (45-117) Aspartate Amino Transf (AST/SGOT) 82 U/L (15-37) 227 U/L (15-37) 234 U/L (15-37) Alanine Aminotransferase (ALT/SGPT) 47 U/L (10-53) 143 U/L (10-53) 205 U/L (10-53) Total Bilirubin 0.9 MG/DL (0.2-1.0) 1.0 MG/DL (0.2-1.0) 0.7 MG/DL (0.2-1.0) Sodium Level 140 MEQ/L (136-145) 142 MEQ/L (136-145) 147 MEQ/L (136-145) Potassium Level 3.5 MEQ/L (3.5-5.1) 3.8 MEQ/L (3.5-5.1) 4.1 MEQ/L (3.5-5.1) Chloride Level 99 MEQ/L (98-107) 101 MEQ/L (98-107) 106 MEQ/L (98-107) Carbon Dioxide Level 33.9 MEQ/L (21.0-32.0) 36.3 MEQ/L (21.0-32.0) 39.3 MEQ/L (21.0-32.0) Anion Gap 7 MEQ/L (5-15) 5 MEQ/L (5-15) 2 MEQ/L (5-15) Estimat Glomerular Filtration Rate 35 ML/MIN (>89) 49 ML/MIN (>89) 67 ML/MIN (>89) Eosinophils % 1 % (0-4) Random Vancomycin Level 12.8 COMMENT 12.5 COMMENT Test 02/04/18 14:48 02/04/18 15:15 Blood Gas Puncture Site RT RADIAL Blood Gas Patient Temperature 98.6 Blood Gas HCO3 38 mmol/L (22-26) Blood Gas Base Excess 12.5 mmol/L (-2-2) Blood Gas Oxygen Saturation 96 % (90-100) Arterial Blood pH 7.38 (7.380-7.420) Arterial Blood Partial Pressure CO2 65 mmHg (38-42) Arterial Blood Partial Pressure O2 122 mmHg (61-120) Arterial Blood Oxygen Content 16.4 Vol % (12.0-20.0) Arterial Blood Carboxyhemoglobin 0.6 % (0-4) Arterial Blood Methemoglobin 1.3 % (0-2) Blood Gas Hemoglobin 12.0 G/DL (12.0-16.0) Oxygen Delivery Device VENTILATOR Blood Gas Ventilator Setting PRVC/AC Blood Gas Inspired Oxygen 100 % White Blood Count 19.0 TH/MM3 (4.0-11.0) Red Blood Count 3.88 MIL/MM3 (4.00-5.30) Hemoglobin 10.6 GM/DL (11.6-15.3) Hematocrit 33.3 % (35.0-46.0) Mean Corpuscular Volume 85.8 FL (80.0-100.0) Mean Corpuscular Hemoglobin 27.2 PG (27.0-34.0) Mean Corpuscular Hemoglobin Concent 31.7 % (32.0-36.0) Red Cell Distribution Width 16.6 % (11.6-17.2) Platelet Count 221 TH/MM3 (150-450) Mean Platelet Volume 8.6 FL (7.0-11.0) Neutrophils (%) (Auto) 92.0 % (16.0-70.0) Lymphocytes (%) (Auto) 5.9 % (9.0-44.0) Monocytes (%) (Auto) 1.6 % (0.0-8.0) Eosinophils (%) (Auto) 0.3 % (0.0-4.0) Basophils (%) (Auto) 0.2 % (0.0-2.0) Neutrophils # (Auto) 17.5 TH/MM3 (1.8-7.7) Lymphocytes # (Auto) 1.1 TH/MM3 (1.0-4.8) Monocytes # (Auto) 0.3 TH/MM3 (0-0.9) Eosinophils # (Auto) 0.1 TH/MM3 (0-0.4) Basophils # (Auto) 0.0 TH/MM3 (0-0.2) CBC Comment AUTO DIFF Differential Total Cells Counted 100 Neutrophils % (Manual) 86 % (16-70) Band Neutrophils % 5 % (0-6) Lymphocytes % 3 % (9-44) Monocytes % 2 % (0-8) Neutrophils # (Manual) 18.1 TH/MM3 (1.8-7.7) Myelocytes 4 % (0-0) Differential Comment FINAL DIFF MANUAL Dohle Bodies PRESENT (NONE SEEN) Platelet Estimate NORMAL (NORMAL) Platelet Morphology Comment ENLARGED (NORMAL) Blood Urea Nitrogen 31 MG/DL (7-18) Creatinine 0.71 MG/DL (0.50-1.00) Random Glucose 223 MG/DL (74-106) Total Protein 6.1 GM/DL (6.4-8.2) Albumin 1.2 GM/DL (3.4-5.0) Calcium Level 8.5 MG/DL (8.5-10.1) Alkaline Phosphatase 315 U/L (45-117) Aspartate Amino Transf (AST/SGOT) 254 U/L (15-37) Alanine Aminotransferase (ALT/SGPT) 223 U/L (10-53) Total Bilirubin 0.9 MG/DL (0.2-1.0) Sodium Level 148 MEQ/L (136-145) Potassium Level 3.5 MEQ/L (3.5-5.1) Chloride Level 107 MEQ/L (98-107) Carbon Dioxide Level 38.7 MEQ/L (21.0-32.0) Anion Gap 2 MEQ/L (5-15) Estimat Glomerular Filtration Rate 83 ML/MIN (>89) Total Creatine Kinase 404 U/L (26-192) Creatine Kinase MB LESS THAN 0.5 NG/ML Creatine Kinase MB % 0.1 % (0.0-4.0) Troponin I LESS THAN 0.02 NG/ML . Result Diagram: 02/04/18 1515 02/04/18 1515 Microbiology Microbiology Date/Time Source Procedure Growth Status 02/04/18 06:16 Blood Peripheral Aerobic Blood Culture Pending Received 02/04/18 06:16 Blood Peripheral Anaerobic Blood Culture Pending Received 02/03/18 14:20 Blood Peripheral Aerobic Blood Culture - Preliminary NO GROWTH IN 1 DAY Resulted 02/03/18 14:20 Blood Peripheral Anaerobic Blood Culture - Preliminary NO GROWTH IN 1 DAY Resulted . Imaging Last Impressions Chest X-Ray 02/04/18 1700 Signed Impressions: Service Date/Time: Sunday, February 04, 2018 17:03 - CONCLUSION: Persistent 1.5 cm right pneumothorax with chest drainage catheter in place stop extensive diffuse bilateral subcutaneous emphysema, stable. Ilya Harris MD Chest CT 01/30/18 0000 Signed Impressions: Service Date/Time: Tuesday, January 30, 2018 20:07 - CONCLUSION: 1. Dense consolidation throughout the left lingula and left lower lobe. There is more patchy areas of consolidation in the upper lobes bilaterally. This pattern is most suggestive of inflammatory/infectious processes. 2. Mild left pleural effusion. 3. Status post gastric surgery/bypass with a mild hiatal hernia. Michael Gabriel MD . Procedures * Intubation/mechanical ventilation right subclavian * Central line placement * Bilateral chest tube placement . Patient/Family Conference Present at Family Conference: Both of the patient's daughters --Connor--were present . Family Conference Time (mins): 50 Family Conference Location: Bedside Issues Discussed: * Palliative care role, purpose, approach * Additional medical, psychosocial, and spiritual history * Patients general health, functional status, and cognitive changes in the months leading up to the current hospitalization * Family understanding of the current medical problems * Family understanding of prognosis * Patients goals of care as best understood from conversations and/or values * Current medical treatment options and benefits/burdens of those options * Questions answered to the best of my ability * Palliative care contact information provided . Assessment and Plan Disease Oriented Problem List: (1) PNA (pneumonia) Comment: MRSA (2) Sepsis Comment: MRSA (3) Anemia (4) Hypoalbuminemia (5) Bilateral pneumothoraces (6) ARF (acute renal failure) Comment: REsolving Symptom Scale: (1) Pain 0-10 Scale: Unable to quantify Comment: No known prehospitalization pain syndromes. Current sources of discomfort might include orotracheal and orogastric intubations; vascular access lines; restraints; Alexandre catheter; chest tubes; prolonged bedbound status. (2) Dyspnea 0-10 Scale: Unable to quantify Comment: Patient with underlying pneumonia and bilateral pneumothoraces. Dyspnea currently managed with ventilatory support. (3) Encephalopathy Pertinent Non-Medical Issues Psychosocial: Has a male partner she normally lives within a [facility] home. He is a smoker. Her 2 daughters are now down from [place] to help. Spiritual: Patient is christian uatsdin. Chaperone visits would be appreciated. Legal: There are no advance directives. Without written designation of a healthcare surrogate, proxy decision making would fall to both adult daughters. Ethical issues impacting care: Patient is currently incapacitated to make her own medical decisions. It is unclear if/when she will become capacitated to do so. . Important Contacts Alona Caballero (daughter and co-health care proxy) [phone] Zenobia Clay (daughter and co-health care proxy) [phone] Brett Mackay (boyfriend -- NO DECISION MAKING RIGHTS unless there is written documentation saying otherwise) [phone] . Prognosis On the one hand, other than her morbid obesity, this patient has very few health problems and has managed to stay out of the hospital. Ordinarily, we would expect her to respond well to treatment and improved.. This patient declined incredibly quickly and has very severe respiratory disease in spite of the fact that she has no known underlying chronic respiratory illness.. It remains unclear if she will pull through this. It is becoming more apparent that she might require tracheostomy if ongoing aggressive care is desired. Given her relatively good healthcare condition just days before the onset of this illness, she certainly deserves a decent trial of aggressive care. . Code Status: Full Code Plan == Code Status: FULL CODE == Medical Decision Making: Patient is currently incapacitated to make her own healthcare decisions. It is unclear if/when she will recover capacity to do so. Since there is no written designation of healthcare surrogate see that we are aware of, proxy decision making would fall to her 2 adult children -- rEic Caballero and Zenobia Clay. == Goals of medical treatment: Given the patient was in good health just days before the onset of this illness, goals continue to be aggressive. Family will likely opt to go forward with tracheostomy if necessary. == Symptoms: * Pain: No known prehospitalization pain syndromes. Current sources of discomfort might include orotracheal and orogastric intubations; vascular access lines; restraints; Alexandre catheter; chest tubes; prolonged bedbound status. There are orders for parenteral morphine available. No further recommendations at this time. * Dyspnea: Patient with underlying pneumonia and bilateral pneumothoraces. Dyspnea currently managed with ventilatory support. No further recommendations at this time. * Encephalopathy: Patient is currently sedated but underlying encephalopathy probably secondary to her sepsis. Hopefully this will improve if we are able to make headway with the underlying infection. No further recommendations at this time. == Daughters report that rooms in the patient's manufactured home are off limits due to mold. May want to evaluate for simultaneous fungal infection , e.g. Aspergillosis? == Palliative care will continue to follow to assist with symptom management and to further clarify goals of medical treatment as the clinical course evolves. . Thank you for the opportunity to participate in the care of Ms. Tinoco. . Attestation To help prompt me to consider important information that might be impacting today's encounter and assessment, information from prior notes written by myself or my colleagues may have been "brought forward" into today's note. My signature on this note, however, is an attestation that I personally performed the exam, history, and/or decision-making noted today, and, unless otherwise indicated, the interactions with patient, family, and staff as well as the review of records all occurred today. I also attest that the listed assessment and stated plan reflect my best clinical judgment today based on the combination of historical information, prior notes, and today's exam/ interactions. When time spent is documented, it refers only to time spent today by the signer, or if indicated, combined time spent today by collaborating physician/nurse practitioner. . Hammad Butcher MD Feb 04, 2018 19:06
[2018-02-05] VITALS (24 sets, daily range): BP systolic 113–201; BP diastolic 55–89; PULSE 69–132; RESP 16–17; TEMP 97.5–99.5; O2SAT 79–96
[2018-02-05] MEDS: AMIODARONE INJ 450 MG in SODIUM CHLOR 0.9% (EXCEL) INJ 241 ML IV PRN (00:42)
[2018-02-05] MEDS: LINEZOLID 600 MG PREMIX 300 ML IV SCH ×2 (00:42→13:02)
[2018-02-05] MEDS: RESP: ALBUTEROL 2.5 MG/IPRATROPIUM 0.5 MG NEB (PRN) INH ×2 (00:51→03:20)
[2018-02-05] MEDS: INSULIN ASPART SUPPLEMENTAL SCALE SQ SCH ×5 (04:00→20:00)
[2018-02-05] MEDS: CHLORHEXIDINE GLUCONATE 2 % 1 PACK (2 CLOTHS) TOP SCH (05:27)
[2018-02-05] MEDS: HEPARIN SODIUM - SQ 10,000 UNITS/ML VIAL SQ SCH ×3 (05:27→21:07)
[2018-02-05] MEDS: fentaNYL 2,500 MCG/NS 250 ML IV PRN ×2 (05:28→19:00)
[2018-02-05 06:31] LABS: CREATININE 0.76 MG/DL (0.50-1.00)
[2018-02-05] MEDS: SODIUM CHLORIDE 0.9% FLUSH 10 ML FLUSH IV FLUSH SCH ×2 (09:03→21:04)
[2018-02-05] MEDS: SODIUM CHLORIDE 0.9% FLUSH 10 ML FLUSH IV FLUSH PRN (09:03)
[2018-02-05] MEDS: FAMOTIDINE 20 MG TAB PO SCH ×2 (09:03→21:03)
[2018-02-05] MEDS: DOCUSATE SODIUM 50 MG/SENNA 8.6 MG TAB PO SCH ×2 (09:03→21:03)
[2018-02-05] MEDS: CHLORHEXIDINE 0.12% (ORAL KIT) 15 ML CUP MT SCH ×2 (09:05→21:04)
--- NOTE | 2018-02-05 10:31 | HHI.CCPN ---
Subjective Remarks/Hospital Course 01/30: 62-year-old female presents for evaluation of increasing shortness of breath and chest pain. She reports 1 week of coughing 3 days of pain in her left chest which radiates to her back, which prompted the visit to the emergency room yesterday. She rates her pain a 6 out of 10. She reports fevers , chills, fatigue, mild nausea. She denies any abdominal pain, vomiting. Patient denies any significant past medical history. Symptom onset was gradual , symptom severity is severe, there are no alleviating factors. Patient states that she has been taking the azithromycin antibiotics that were prescribed to her. She denies any current or historical tobacco use. 01/31: Intubated at 1 AM this morning and placed on mechanical ventilation due to worsening respiratory distress. Currently sedated, orally intubated on mechanical ventilation. 02/01: Remains sedated, orally intubated on mechanical ventilation. Went into A. fib with RVR this morning. Loaded with amiodarone, started on amiodarone drip and given digoxin 0.5 mg IV 02/02: Remains sedated, orally intubated on mechanical ventilation. Right sided pigtail catheter in place with 1+ air leak. Converted to sinus rhythm overnight. Remains on amiodarone gtt. 02/03: Remains sedated, orally intubated on mechanical ventilation. 1+ air leak and right sided pigtail catheter. Tolerating tube feeds. Remains on amiodarone gtt. 02/04: Noted to have pneumothorax on the left side this morning on routine chest x -ray which appeared to be under tension. Right sided pigtail catheter placed by Dr. Peña with reexpansion of lung. Patient remains sedated, orally intubated on mechanical ventilation. 1+ airleak and bilateral chest tubes noted. 02/05: Afebrile. Persistent leukocytosis, bilateral chest tubes continue on wall suction. Chest x-ray pending this a.m.. Patient scheduled for GRANT today, discussed with Dr. Vázquez. Patient continues on amiodarone infusion with sinus rhythm. Postprocedure GRANT,this afternoon, the patient became extremely agitated, noted significant increase in subcu emphysema, peak pressures 50's, O2 saturation significantly decreased to 78-80 %. Stat chest x-ray performed patient was noted to have a significant right pneumothorax. 20 Setswana right chest tube placement emergently, with increase in O2 saturation decrease in peak inspiratory pressures. Objective Vital Signs Date Time Temp Pulse Resp B/P (MAP) Pulse Ox O2 Delivery O2 Flow Rate FiO2 02/05/18 08:32 94 50 02/05/18 06:00 82 16 135/55 (81) 02/05/18 04:00 98.8 02/01/18 19:00 Mechanical Ventilator Intake and Output 02/05/18 02/05/18 02/06/18 08:00 16:00 00:00 Intake Total 1266 ml Output Total 930 ml Balance 336 ml Result Diagram: 02/04/18 1515 02/05/18 0510 Other Results Laboratory Tests Test 02/04/18 14:48 Blood Gas Puncture Site RT RADIAL Blood Gas Patient Temperature 98.6 Blood Gas HCO3 38 mmol/L (22-26) Blood Gas Base Excess 12.5 mmol/L (-2-2) Blood Gas Oxygen Saturation 96 % (90-100) Arterial Blood pH 7.38 (7.380-7.420) Arterial Blood Partial Pressure CO2 65 mmHg (38-42) Arterial Blood Partial Pressure O2 122 mmHg (61-120) Arterial Blood Oxygen Content 16.4 Vol % (12.0-20.0) Arterial Blood Carboxyhemoglobin 0.6 % (0-4) Arterial Blood Methemoglobin 1.3 % (0-2) Blood Gas Hemoglobin 12.0 G/DL (12.0-16.0) Oxygen Delivery Device VENTILATOR Blood Gas Ventilator Setting PRVC/AC Blood Gas Inspired Oxygen 100 % Imaging Last Impressions Chest X-Ray 02/04/18 1700 Signed Impressions: Service Date/Time: Sunday, February 04, 2018 17:03 - CONCLUSION: Persistent 1.5 cm right pneumothorax with chest drainage catheter in place stop extensive diffuse bilateral subcutaneous emphysema, stable. Ilya Harris MD Chest CT 01/30/18 0000 Signed Impressions: Service Date/Time: Tuesday, January 30, 2018 20:07 - CONCLUSION: 1. Dense consolidation throughout the left lingula and left lower lobe. There is more patchy areas of consolidation in the upper lobes bilaterally. This pattern is most suggestive of inflammatory/infectious processes. 2. Mild left pleural effusion. 3. Status post gastric surgery/bypass with a mild hiatal hernia. Michael Gabriel MD Last 24 hours Impressions Chest X-Ray 01/30/18 1556 Signed Impressions: Service Date/Time: Tuesday, January 30, 2018 16:01 - CONCLUSION: 1. Bilateral airspace disease with significant consolidation in the left base. 2. Elevated left hemidiaphragm versus eventration. Ramon Blunt MD Chest CT 01/30/18 0000 Signed Impressions: Service Date/Time: Tuesday, January 30, 2018 20:07 - CONCLUSION: 1. Dense consolidation throughout the left lingula and left lower lobe. There is more patchy areas of consolidation in the upper lobes bilaterally. This pattern is most suggestive of inflammatory/infectious processes. 2. Mild left pleural effusion. 3. Status post gastric surgery/bypass with a mild hiatal hernia. Michael Gabriel MD Objective Remarks HEENT/ Neuro: Sedated, orally intubated, Pallor present, no icterus, tongue/ mucosa moist Neck: No JVD Chest/Pulm: on mech vent, air entry decreased bilaterally at bases, scattered rhonchi bilaterally. Bilateral pigtail catheters in place with 1+ air leak noted. CVS: S1-S2 regular, no murmur GI/abdomen: soft, nontender, bowel sounds hypoactive Neuro: RASS -2, currently on fentanyl and Versed infusions. Patient moving extremities 4 Extremities: warm bilaterally, 1+bilateral peripheral edema upper and lower extremities A/P Assessment and Plan Acute Respiratory failure MRSA pneumonia MRSA bacteremia Sepsis COPD bilateral pneumothorax - Antibiotics per ID. On Zyvox. MRSA bacteremia persists from blood culture on 02/01. Dr. Singleton added IV vancomycin and consulted cardiology for GRANT to evaluate heart valves. -Repeat blood cultures per ID. - Bal culture/blood cultures growing MRSA -Legionella and strep pneumo antigen negative -Consulted ID for sepsis/pneumonia - Dr. Singleton following. - DuoNeb scheduled and when necessary - Titrated off IV steroids by 02/03 -Bilateral pigtail catheters in place with 1+ air leak, continue on suction -40 on right, -20 on left -Repeat chest x-ray this a.m. Acute kidney injury - Dehydration - s/p IV fluids resuscitation. KVO IVF - Strict I's and O's - Monitor trend of creatinine and electrolytes A. fib with RVR (converted to RSR 02/02) -Continue amiodarone gtt. Digoxin 0.5 mg IV x 1 on 02/01. - 02/05 GRANT pending - R/O endocarditis and evaluation of function DVT GI prophylaxis - Teds SCDs - Subcutaneous heparin - Pepcid Lines: Right subclavian central line inserted 02/01 Critical Care: my billing statement This patient remains critically ill with one or more organ systems which are or may become a threat to life. I have spent in excess of 35 minutes discontinuously in the care and management of this patient. This time is exclusive of procedures, and includes, but is not limited to, evaluation of the patient, review of the medical record, discussions with family, consultants, nursing staff, or respiratory therapy, and documentation in the medical record. D/W BARBERING TEACHER (Susana) and Dr. Vázquez Physician Dilcia Zhong MD Feb 05, 2018 10:31
[2018-02-05 11:00] LABS: HEMATOCRIT 31.2 % (35.0-46.0); HEMOGLOBIN 9.8 GM/DL (11.6-15.3); MEAN CELL VOLUME 85.8 FL (80.0-100.0); MEAN CORPUSCULAR HEMOGLOBIN 26.9 PG (27.0-34.0); MEAN CORPUSCULAR HGB CONC 31.4 % (32.0-36.0); MEAN PLATELET VOLUME 8.8 FL (7.0-11.0); PLATELET COUNT 215 TH/MM3 (150-450); RED BLOOD COUNT 3.63 MIL/MM3 (4.00-5.30); RED CELL DISTRIBUTION WIDTH 16.8 % (11.6-17.2); WHITE BLOOD COUNT 17.7 TH/MM3 (4.0-11.0)
[2018-02-05 11:33] LABS: BANDS 10 % (0-6); LYMPHOCYTES 7 % (9-44); MONOCYTES 1 % (0-8); NEUTROPHIL # MANUAL DIFF 16.1 TH/MM3 (1.8-7.7); POLYS (SEG NEUTROPHILS) 81 % (16-70)
[2018-02-05] MEDS: MORPHINE SULFATE 4 MG/ML INJ IV PUSH PRN (11:41)
[2018-02-05] MEDS: hydrALAZINE HCL 20 MG/ML VIAL IV PUSH PRN (11:41)
[2018-02-05] MEDS ORDERED: MIDAZOLAM HCL 5 MG/ML VIAL (1 ML) ONE (11:51)
[2018-02-05] MEDS ORDERED: SUCCINYLCHOLINE CHLORIDE 200 MG/10 ML VIAL ONE (11:58)
--- NOTE | 2018-02-05 11:59 | RADRPT ---
EXAM DATE/TIME: 02/05/2018 10:38 [facility] COMPARISON: CHEST SINGLE AP, February 04, 2018, 17:03. INDICATIONS : Pneumothorax, MEDICAL HISTORY : None. SURGICAL HISTORY : Tubal ligation. Gastric bypass ENCOUNTER: Subsequent ACUITY: 1 week PAIN SCORE: Non-responsive. LOCATION: Bilateral chest FINDINGS: Diffuse bilateral parenchymal opacities persist and are slightly worse. Bilateral chest tubes remain in place. There is a small to moderate left pneumothorax, slightly larger than yesterday. No percepti ble pneumothorax on the right. Chest wall emphysema persists but has decreased slightly. Endotracheal tube tip is about 3 cm above the thiago. Nasogastric tube courses into the stomach. Ther e is a right subclavian central venous catheter with tip in the superior vena cava again noted. CONCLUSION: The left pneumothorax is slightly larger, currently small to moderate. No tension demonstrated. No pn eumothorax on the right. Michael Espinoza MD on February 05, 2018 at 11:55 Board Certified Radiologist. This report was verified electronically.
[2018-02-05] MEDS ORDERED: CISATRACURIUM BESYLATE 10 MG/5 ML VIAL IV PUSH ONE ×2 (12:15→12:30)
[2018-02-05] MEDS ORDERED: LIDOCAINE 1%/EPINEPHrine 1:100,000 SOLN 30 ML VIAL ONE ×2 (12:19→12:20)
[2018-02-05] MEDS: DILTIAZEM HCL 30 MG TAB PO SCH ×2 (12:30→21:07)
[2018-02-05 12:40] LABS: BICARBONATE 35.9 MEQ/L (21.0-32.0); CALCIUM 8.9 MG/DL (8.5-10.1); CREATININE 0.83 MG/DL (0.50-1.00)
--- NOTE | 2018-02-05 12:44 | MB ---
cc: Amaury Vázquez DO DATE: 02/05/2018 REASON FOR CONSULTATION: Bacteremia, rule out endocarditis. HISTORY OF PRESENT ILLNESS: Susan Tinoco is a 62-year-old female who presented to [facility] on 01/30/2018 due to chest pain and shortness of breath. Apparently, she has been coughing for 3 days and when coughing, she noticed that the left side of her chest would hurt, which radiated towards her back. She has had fevers, chills, fatigue and mild nausea. Apparently, she went into respiratory distress and was intubated. Further evaluation of her blood culture showed MRSA in multiple bottles. I was consulted for consideration of GRANT to rule out endocarditis. In seeing her, she is currently hemodynamically stable on mechanical ventilation. PAST MEDICAL HISTORY: Per the chart, no significant history. PAST SURGICAL HISTORY: 1. Tonsillectomy. 2. Gastric bypass surgery. 3. Tummy tuck. 4. Arm lift. 5. Bilateral carpal tunnel surgery. 6. Tubal ligation. ALLERGIES: NO KNOWN DRUG ALLERGIES. MEDICATIONS: 1. Naproxen 250 mg b.i.d. 2. Azithromycin 250 mg daily. FAMILY HISTORY: Denies sudden cardiac or premature coronary artery disease within the family. SOCIAL HISTORY: The patient is a lifetime nonsmoker. Denies alcohol or drug abuse. REVIEW OF SYSTEMS: Unable to obtain due to the patient's current state. PHYSICAL EXAMINATION: VITAL SIGNS: Temperature 98.6, heart rate 82, blood pressure 135/55, respirations 16, pulse oximetry 95% on the ventilator. GENERAL: The patient is sedated and intubated. HEENT: Pupils are equal, round and reactive. Head is atraumatic. Mucous membranes moist. NECK: Supple. No JVD at 45 degrees. No carotid bruits heard bilaterally. ET tube is noted to be in place. HEART: Regular rate and rhythm. Positive for and second heart sounds with a I/ holosystolic murmur noted at the apex. LUNGS: Decreased breath sounds bilaterally but no overt wheezes, rales or rhonchi. ABDOMEN: Soft, nontender, and nondistended. No organomegaly noted. EXTREMITIES: Showed trace edema bilaterally. NEUROLOGIC: Unable to determine due to sedation. SKIN: Warm, dry and intact. OSTEOPATHIC: Mild lordosis, no kyphoscoliosis. LABORATORY DATA: Hemoglobin 9.8, hematocrit 31.2, platelets 215. Potassium 3.5, BUN 31, creatinine 0.71. Electrocardiogram (01/30/2018 at 1527) sinus rhythm, LVH by voltage criteria. IMPRESSION: 1. Bacteremia with methicillin-resistant Staphylococcus aureus. 2. Vent dependent respiratory failure. 3. Atrial fibrillation with rapid ventricular response, currently on an amiodarone drip, converted to normal sinus rhythm. 4. Pneumonia. 5. Sepsis. RECOMMENDATIONS: 1. Ms. Tinoco appears to have multiple blood cultures positive for MRSA and because of that, she will be recommended GRANT to evaluate for endocarditis. 2. The patient is currently intubated and unable to sign for the procedure. I did speak with her 2 daughters over the phone and they have given verbal consent. 3. We will plan on doing the GRANT while she is currently intubated at the bedside. 4. Risks, benefits, and alternatives were discussed with the patient's daughter, and they consented for the procedure. 5. She did have an episode of atrial fibrillation with rapid ventricular response apparently on 02/01/2018 and has since been on an amiodarone drip. As she is hemodynamically stable, we will attempt to transfer her to [facility] p.o. As far as a CHADS-VASc score, she apparently is a 1. Would plan on placing her on aspirin 81 mg daily for this. This can be further discussed with her once she is extubated. 6. Further recommendations will be made based on her hospital course. Thank you for allowing me to see Susan Tinoco. If there are any questions, please do not hesitate to call. Amaury Vázquez, DO VGP/KD , 12:15 PM , 12:43 PM
--- NOTE | 2018-02-05 12:48 | RADRPT ---
EXAM DATE/TIME: 02/05/2018 12:14 [facility] COMPARISON: CHEST SINGLE AP, February 05, 2018, 10:38. INDICATIONS : Pneumothorax. MEDICAL HISTORY : None. SURGICAL HISTORY : Tubal ligation. Gastric bypass ENCOUNTER: Subsequent ACUITY: 1 week PAIN SCORE: Non-responsive. LOCATION: Bilateral chest FINDINGS: There has been a significant change in the right chest, with development of a pneumothorax measuring 7.2 cm at the apex and 4.3 cm laterally. The right lung is collapsed and has increased in density. Th ere is no evidence of mediastinal shift. Endotracheal tube tip is well above the thiago. On the left side, a small lateral pneumothorax is stable in size measuring 1.3 cm. There is also air tracking adj acent to the aortic arch and main pulmonary artery suggesting pneumomediastinum. There are bilateral chest drainage catheters in place, stable in position when compared to examination earlier today. Ext ensive soft tissue emphysema throughout the chest and neck is similar to prior. Consolidative opaciti es in the left lower lung with loss of delineation left hemidiaphragm, similar to prior. CONCLUSION: 1. Significant change in the right chest when compared to exam earlier today with a large right pneum othorax measuring in excess of 7.3 cm. 2. Small left pneumothorax is stable in size. 3. Probable interval development of pneumomediastinum. 4. Bilateral pigtail chest drainage catheter is stable in position. Ilya Harris MD on February 05, 2018 at 12:43 Board Certified Radiologist. This report was verified electronically.
--- NOTE | 2018-02-05 12:55 | PD.PROCEDR ---
Procedure Note Procedure Diagnosis: Right pneumothorax Indications: Right pneumothorax with hypoxia CHEST TUBE THORACOSTOMY: Emergent stat chest x-ray was performed the patient was noted to be hemodynamically unstable with significant hypoxia O2 saturation 78%. The right chest was prepped with chlorahexdine and sterilely draped. The area of the fifth intercostal interspace was located. A 2 centimeter incision was made with a scalpel at the fifth intercostal space. Blunt dissection to the fourth intercostal interspace performed and the pleura was punctured with immediate walls of air. Finger was inserted in the space and thoracostomy tube 20 F was placed, directed posteriorly and inferiorly. Tube placed on -40 cm H20 draining well. The thoracostomy tube was secured with sutured. Sterile seal dressing placed. Patient tolerated procedure well. Repeat CXR pending. Dilcia Cooper MD Feb 05, 2018 12:55
--- NOTE | 2018-02-05 13:14 | RADRPT ---
EXAM DATE/TIME: 02/05/2018 12:30 [facility] COMPARISON: CHEST SINGLE AP, February 05, 2018, 12:14. INDICATIONS : Right side chest tube placement. MEDICAL HISTORY : None. SURGICAL HISTORY : Bilateral chest tubes.Tubal ligation. Gastric bypass. ENCOUNTER: Subsequent ACUITY: 1 week PAIN SCORE: Non-responsive. LOCATION: Bilateral chest FINDINGS: I believe the right chest tube has been repositioned. The right pneumothorax is smaller, currently ab out 21 mm in maximal thickness. The left pneumothorax is unchanged, approximately 14 mm in maximal th ickness. Widespread patchy parenchymal opacities of both lungs again noted. CONCLUSION: Small to moderate bilateral pneumothoraces, smaller on the right and about the same on the left. Michael Espinoza MD on February 05, 2018 at 13:10 Board Certified Radiologist. This report was verified electronically.
[2018-02-05] MEDS: MIDAZOLAM 100 MG/NS 100 ML DRIP Premix IV PRN ×2 (14:21→19:00)
[2018-02-05] MEDS: VANCOMYCIN INJ 1,500 MG in SODIUM CHLORID 0.9% 500 ML INJ 500 ML IV SCH (15:42)
[2018-02-05] MEDS ORDERED: diphenhydrAMINE HCL 50 MG/ML VIAL ONE (16:21)
--- NOTE | 2018-02-05 17:53 | HHI.PR ---
Addendum to Inpatient Note Additional Information seen around 1740 CT x 2 on the R GRANT negative On exam worsening anasarca full note to follow dw family dw Carlene Reed MD Feb 05, 2018 17:53
--- NOTE | 2018-02-05 18:07 | ECHRPT ---
Indication: BACTEREMIA CONCLUSIONS The left ventricular systolic function is normal with an estimated ejection fraction in the range of 55-60%. Trace mitral valve regurgitation. There is trace tricuspid valve regurgitation. No evidence of endocarditis BP: / HR: Rhythm: Sinus Technical Quality:Good Medications Versed/Versed drip Complications None Proc. Components Consent obtained from daughter as patient was intubated. Moderate sedation provi ded on current baseline sedation. FINDINGS LEFT VENTRICLE Normal left ventricular size. Wall thickness is normal. The left ventricular systolic function is normal with an estimated ejection fraction in the range of 55-60%. RIGHT VENTRICLE The right ventricular size is normal. The right ventricular systoilc function is normal. LEFT ATRIUM The left atrial size is normal. The left atrial size is normal. RIGHT ATRIUM The right atrial size is normal. ATRIAL APPENDAGES Normal left atrial appendage size with no evidence of thrombus formation. ATRIAL SEPTUM Normal atrial septal thickness. No atrial level shunt is demonstrated by color flow Doppler or agitated saline imaging. AORTA Descending aorta without dissection MITRAL VALVE Structurally normal mitral valve. Trace mitral valve regurgitation. No mitral valve stenosis. AORTIC VALVE Trileaflet aortic valve. Aortic valve sclerosis is present. No aortic valve regurgitation. No aortic valve stenosis. TRICUSPID VALVE Structurally normal tricuspid valve. There is trace tricuspid valve regurgitation. No tricuspid valve stenosis. VESSELS The pulmonary valve is not well visualized. Trivial pulmonary valve regurgitation. Amaury Vázquez DO (Electronically Signed) Final Date:05 February 2018 18:06
--- NOTE | 2018-02-05 20:28 | HHI.HCPN ---
Reason for visit a. To assist with evaluation and management of symptoms including: dyspnea; encephalopathy, pain b. To assist medical decision maker(s) with: better understanding of current medical conditions; weighing benefits/burdens of medical treatment options; making medical treatment decisions. . Subjective/Interval History Patient remains minimally responsive, mechanically ventilated in the MICU. Ms. Tinoco underwent trans-esophageal echocardiogram today -- no vegetations noted. No significant valvular disease noted. EF estimated at 55-60%. Following the GRANT the patient was noted to be significant agitated with subcutaneous emphysema and poor oxygenation. Stat CXR showed a large right pneumothorax. Another chest tube was inserted with improvement. . Family/friend interactions No family at bedside. . Advance Directives Living Will: Never completed Health Care Surrogate: Never completed Durable Power of Geneticist: Never completed Advance Directive Specifics Date completed: Patient has never completed an advanced directive. . Health Care Surrogate(s): There is no written designation of healthcare surrogate. . Documented care wishes: There is no written documentation of healthcare goals/preferences. . Objective Vital Signs Date Time Temp Pulse Resp B/P (MAP) Pulse Ox O2 Delivery O2 Flow Rate FiO2 02/05/18 18:00 75 02/05/18 18:00 76 114/61 02/05/18 16:20 95 90 02/05/18 16:00 78 02/05/18 16:00 50 02/05/18 16:00 97.9 78 16 119/58 (78) 92 02/05/18 14:00 82 02/05/18 12:39 93 100 02/05/18 12:00 50 02/05/18 12:00 132 02/05/18 12:00 97.5 132 17 201/89 (126) 79 02/05/18 10:43 92 50 02/05/18 10:00 79 02/05/18 08:32 94 50 02/05/18 08:00 77 02/05/18 08:00 98.5 77 16 140/66 (90) 95 02/05/18 08:00 50 02/05/18 06:00 82 16 135/55 (81) 95 02/05/18 06:00 82 02/05/18 05:00 100 02/05/18 05:00 100 16 185/84 (117) 95 02/05/18 04:14 95 50 02/05/18 04:00 98.8 82 16 137/63 (87) 93 02/05/18 04:00 82 02/05/18 04:00 50 02/05/18 03:23 94 50 02/05/18 02:00 79 02/05/18 01:00 70 02/05/18 00:44 95 50 02/05/18 00:42 70 122/59 02/05/18 00:00 50 02/05/18 00:00 98.6 69 16 119/58 (78) 95 02/05/18 00:00 74 02/04/18 23:00 69 02/04/18 22:00 74 17 146/70 (95) 94 02/04/18 22:00 74 02/04/18 21:42 94 50 02/04/18 21:00 76 . Physical Exam CONSTITUTIONAL/GENERAL: This is an obese patient, minimally responsive, sedated , in the medical intensive care unit bed. No apparent distress. Significant subcutaneous emphysema is present. TUBES/LINES/DRAINS: Orotracheal tube; orogastric tube; right subclavian central line; bilateral chest tubes; peripheral IV; soft wrist restraints; sequential compressive devices. SKIN: No jaundice, rashes, or lesions. Ecchymoses on upper extremities. No wounds seen anteriorly. Skin temperature appropriate. Not diaphoretic. EYES: Pupils equal and round. Unable to evaluate extraocular movements. No scleral icterus. No injection or drainage. Fundi not examined. ENT: Unable to evaluate hearing. Nose without bleeding or purulent drainage. Throat without visible erythema, exudates, masses, or lesions though difficult to assess adequately with intubations. NECK: Neck somewhat difficult to examine due to obesity and SQ emphysema. . Trachea midline. CARDIOVASCULAR: Intermittently tachycardic with regular rhythm without murmurs, gallops, or rubs.Unable to assess JVD. RESPIRATORY/CHEST: Bilateral chest tubes. Symmetric respirations on vent. Decreased air movement at bases. No wheezing. GASTROINTESTINAL: Abdomen soft, non-tender, nondistended. No hepato-splenomegaly , or palpable masses. No guarding. Bowel sounds present. GENITOURINARY: Without palpable bladder distension. Alexandre catheter in place. MUSCULOSKELETAL: Extremities without clubbing, cyanosis. Edema noted in all extremities. No mottling . LYMPHATICS: Not examined. NEUROLOGICAL: Sedated. No spontaneous movements seen. Will withdraw to noxious stimuli. PSYCHIATRIC: Unable to assess due to level of responsiveness. . Diagnostic Tests Laboratory Laboratory Tests Test 02/03/18 05:20 02/04/18 05:39 02/04/18 06:00 02/04/18 14:48 White Blood Count 28.0 TH/MM3 (4.0-11.0) 19.1 TH/MM3 (4.0-11.0) Red Blood Count 3.70 MIL/MM3 (4.00-5.30) 3.65 MIL/MM3 (4.00-5.30) Hemoglobin 10.1 GM/DL (11.6-15.3) 9.9 GM/DL (11.6-15.3) Hematocrit 31.6 % (35.0-46.0) 31.5 % (35.0-46.0) Mean Corpuscular Volume 85.4 FL (80.0-100.0) 86.4 FL (80.0-100.0) Mean Corpuscular Hemoglobin 27.2 PG (27.0-34.0) 27.2 PG (27.0-34.0) Mean Corpuscular Hemoglobin Concent 31.9 % (32.0-36.0) 31.5 % (32.0-36.0) Red Cell Distribution Width 16.6 % (11.6-17.2) 16.7 % (11.6-17.2) Platelet Count 218 TH/MM3 (150-450) 204 TH/MM3 (150-450) Mean Platelet Volume 9.1 FL (7.0-11.0) 8.9 FL (7.0-11.0) CBC Comment AUTO DIFF AUTO DIFF Differential Total Cells Counted 100 Neutrophils % (Manual) 91 % (16-70) Band Neutrophils % 7 % (0-6) Monocytes % 1 % (0-8) Eosinophils % 1 % (0-4) Neutrophils # (Manual) 27.4 TH/MM3 (1.8-7.7) Differential Comment FINAL DIFF MANUAL AUTO DIFF CONFIRMED Platelet Estimate NORMAL (NORMAL) NORMAL (NORMAL) Platelet Morphology Comment NORMAL (NORMAL) NORMAL (NORMAL) Blood Urea Nitrogen 40 MG/DL (7-18) 36 MG/DL (7-18) Creatinine 1.12 MG/DL (0.50-1.00) 0.86 MG/DL (0.50-1.00) Random Glucose 256 MG/DL (74-106) 248 MG/DL (74-106) Total Protein 6.4 GM/DL (6.4-8.2) 6.2 GM/DL (6.4-8.2) Albumin 1.3 GM/DL (3.4-5.0) 1.2 GM/DL (3.4-5.0) Calcium Level 8.8 MG/DL (8.5-10.1) 8.5 MG/DL (8.5-10.1) Alkaline Phosphatase 312 U/L (45-117) 297 U/L (45-117) Aspartate Amino Transf (AST/SGOT) 227 U/L (15-37) 234 U/L (15-37) Alanine Aminotransferase (ALT/SGPT) 143 U/L (10-53) 205 U/L (10-53) Total Bilirubin 1.0 MG/DL (0.2-1.0) 0.7 MG/DL (0.2-1.0) Sodium Level 142 MEQ/L (136-145) 147 MEQ/L (136-145) Potassium Level 3.8 MEQ/L (3.5-5.1) 4.1 MEQ/L (3.5-5.1) Chloride Level 101 MEQ/L (98-107) 106 MEQ/L (98-107) Carbon Dioxide Level 36.3 MEQ/L (21.0-32.0) 39.3 MEQ/L (21.0-32.0) Anion Gap 5 MEQ/L (5-15) 2 MEQ/L (5-15) Estimat Glomerular Filtration Rate 49 ML/MIN (>89) 67 ML/MIN (>89) Random Vancomycin Level 12.8 COMMENT 12.5 COMMENT Neutrophils (%) (Auto) 92.8 % (16.0-70.0) Lymphocytes (%) (Auto) 4.1 % (9.0-44.0) Monocytes (%) (Auto) 2.9 % (0.0-8.0) Eosinophils (%) (Auto) 0.0 % (0.0-4.0) Basophils (%) (Auto) 0.2 % (0.0-2.0) Neutrophils # (Auto) 17.8 TH/MM3 (1.8-7.7) Lymphocytes # (Auto) 0.8 TH/MM3 (1.0-4.8) Monocytes # (Auto) 0.6 TH/MM3 (0-0.9) Eosinophils # (Auto) 0.0 TH/MM3 (0-0.4) Basophils # (Auto) 0.0 TH/MM3 (0-0.2) Toxic Granulation 1+ (NORMAL) Dohle Bodies PRESENT (NONE SEEN) Blood Gas Puncture Site RT RADIAL Blood Gas Patient Temperature 98.6 Blood Gas HCO3 38 mmol/L (22-26) Blood Gas Base Excess 12.5 mmol/L (-2-2) Blood Gas Oxygen Saturation 96 % (90-100) Arterial Blood pH 7.38 (7.380-7.420) Arterial Blood Partial Pressure CO2 65 mmHg (38-42) Arterial Blood Partial Pressure O2 122 mmHg (61-120) Arterial Blood Oxygen Content 16.4 Vol % (12.0-20.0) Arterial Blood Carboxyhemoglobin 0.6 % (0-4) Arterial Blood Methemoglobin 1.3 % (0-2) Blood Gas Hemoglobin 12.0 G/DL (12.0-16.0) Oxygen Delivery Device VENTILATOR Blood Gas Ventilator Setting [facility]/AC Blood Gas Inspired Oxygen 100 % Test 02/04/18 15:15 02/05/18 05:10 02/05/18 10:44 White Blood Count 19.0 TH/MM3 (4.0-11.0) 17.7 TH/MM3 (4.0-11.0) Red Blood Count 3.88 MIL/MM3 (4.00-5.30) 3.63 MIL/MM3 (4.00-5.30) Hemoglobin 10.6 GM/DL (11.6-15.3) 9.8 GM/DL (11.6-15.3) Hematocrit 33.3 % (35.0-46.0) 31.2 % (35.0-46.0) Mean Corpuscular Volume 85.8 FL (80.0-100.0) 85.8 FL (80.0-100.0) Mean Corpuscular Hemoglobin 27.2 PG (27.0-34.0) 26.9 PG (27.0-34.0) Mean Corpuscular Hemoglobin Concent 31.7 % (32.0-36.0) 31.4 % (32.0-36.0) Red Cell Distribution Width 16.6 % (11.6-17.2) 16.8 % (11.6-17.2) Platelet Count 221 TH/MM3 (150-450) 215 TH/MM3 (150-450) Mean Platelet Volume 8.6 FL (7.0-11.0) 8.8 FL (7.0-11.0) Neutrophils (%) (Auto) 92.0 % (16.0-70.0) Lymphocytes (%) (Auto) 5.9 % (9.0-44.0) Monocytes (%) (Auto) 1.6 % (0.0-8.0) Eosinophils (%) (Auto) 0.3 % (0.0-4.0) Basophils (%) (Auto) 0.2 % (0.0-2.0) Neutrophils # (Auto) 17.5 TH/MM3 (1.8-7.7) Lymphocytes # (Auto) 1.1 TH/MM3 (1.0-4.8) Monocytes # (Auto) 0.3 TH/MM3 (0-0.9) Eosinophils # (Auto) 0.1 TH/MM3 (0-0.4) Basophils # (Auto) 0.0 TH/MM3 (0-0.2) CBC Comment AUTO DIFF AUTO DIFF Differential Total Cells Counted 100 100 Neutrophils % (Manual) 86 % (16-70) 81 % (16-70) Band Neutrophils % 5 % (0-6) 10 % (0-6) Lymphocytes % 3 % (9-44) 7 % (9-44) Monocytes % 2 % (0-8) 1 % (0-8) Neutrophils # (Manual) 18.1 TH/MM3 (1.8-7.7) 16.1 TH/MM3 (1.8-7.7) Myelocytes 4 % (0-0) Differential Comment FINAL DIFF MANUAL FINAL DIFF MANUAL Dohle Bodies PRESENT (NONE SEEN) Platelet Estimate NORMAL (NORMAL) NORMAL (NORMAL) Platelet Morphology Comment ENLARGED (NORMAL) NORMAL (NORMAL) Blood Urea Nitrogen 31 MG/DL (7-18) 31 MG/DL (7-18) Creatinine 0.71 MG/DL (0.50-1.00) 0.83 MG/DL (0.50-1.00) Random Glucose 223 MG/DL (74-106) 235 MG/DL (74-106) Total Protein 6.1 GM/DL (6.4-8.2) Albumin 1.2 GM/DL (3.4-5.0) Calcium Level 8.5 MG/DL (8.5-10.1) 8.9 MG/DL (8.5-10.1) Alkaline Phosphatase 315 U/L (45-117) Aspartate Amino Transf (AST/SGOT) 254 U/L (15-37) Alanine Aminotransferase (ALT/SGPT) 223 U/L (10-53) Total Bilirubin 0.9 MG/DL (0.2-1.0) Sodium Level 148 MEQ/L (136-145) 149 MEQ/L (136-145) Potassium Level 3.5 MEQ/L (3.5-5.1) 4.4 MEQ/L (3.5-5.1) Chloride Level 107 MEQ/L (98-107) 106 MEQ/L (98-107) Carbon Dioxide Level 38.7 MEQ/L (21.0-32.0) 35.9 MEQ/L (21.0-32.0) Anion Gap 2 MEQ/L (5-15) 7 MEQ/L (5-15) Estimat Glomerular Filtration Rate 83 ML/MIN (>89) 70 ML/MIN (>89) Total Creatine Kinase 404 U/L (26-192) Creatine Kinase MB LESS THAN 0.5 NG/ML Creatine Kinase MB % 0.1 % (0.0-4.0) Troponin I LESS THAN 0.02 NG/ML Random Vancomycin Level 8.0 COMMENT Eosinophils % 1 % (0-4) . Result Diagram: 02/05/18 1044 02/05/18 0510 Microbiology Microbiology Date/Time Source Procedure Growth Status 02/04/18 06:16 Blood Peripheral Aerobic Blood Culture - Preliminary NO GROWTH IN 1 DAY Resulted 02/04/18 06:16 Blood Peripheral Anaerobic Blood Culture - Preliminary NO GROWTH IN 1 DAY Resulted 02/03/18 14:20 Blood Peripheral Aerobic Blood Culture - Preliminary Gram Positive Cocci Resulted 02/03/18 14:20 Blood Peripheral Anaerobic Blood Culture - Preliminary NO GROWTH IN 2 DAYS Resulted . Imaging Last Impressions Chest X-Ray 02/05/18 0000 Signed Impressions: Service Date/Time: Monday, February 05, 2018 12:30 - CONCLUSION: Small to moderate bilateral pneumothoraces, smaller on the right and about the same on the left. Michael Espinoza MD Chest CT 01/30/18 0000 Signed Impressions: Service Date/Time: Tuesday, January 30, 2018 20:07 - CONCLUSION: 1. Dense consolidation throughout the left lingula and left lower lobe. There is more patchy areas of consolidation in the upper lobes bilaterally. This pattern is most suggestive of inflammatory/infectious processes. 2. Mild left pleural effusion. 3. Status post gastric surgery/bypass with a mild hiatal hernia. Michael Gabriel MD . Procedures * Intubation/mechanical ventilation right subclavian * Central line placement * Bilateral chest tube placement * Transesophageal echo * . Assessment and Plan Disease Oriented Problem List: (1) PNA (pneumonia) Comment: MRSA (2) Sepsis Comment: MRSA (3) Anemia (4) Hypoalbuminemia (5) Bilateral pneumothoraces (6) ARF (acute renal failure) Comment: REsolving Symptom Scale: (1) Pain 0-10 Scale: Unable to quantify Comment: No known prehospitalization pain syndromes. Current sources of discomfort might include orotracheal and orogastric intubations; vascular access lines; restraints; Alexandre catheter; chest tubes; prolonged bedbound status. (2) Dyspnea 0-10 Scale: Unable to quantify Comment: Patient with underlying pneumonia and bilateral pneumothoraces. Dyspnea currently managed with ventilatory support. (3) Encephalopathy Pertinent Non-Medical Issues Psychosocial: Has a male partner she normally lives [facility]. He is a smoker. Her 2 daughters are now down from [place] to help. Spiritual: Patient is worship quaker. [employer] visits would be appreciated. Legal: There are no advance directives. Without written designation of a healthcare surrogate, proxy decision making would fall to both adult daughters. Ethical issues impacting care: Patient is currently incapacitated to make her own medical decisions. It is unclear if/when she will become capacitated to do so. . Important Contacts Alona Rosenbaumig (daughter and co-health care proxy) [phone] Zenobia Clay (daughter and co-health care proxy) [phone] Brett Mackay (boyfriend -- NO DECISION MAKING RIGHTS unless there is written documentation saying otherwise) [phone] . Prognosis On the one hand, other than her morbid obesity, this patient has very few health problems and has managed to stay out of the hospital. Ordinarily, we would expect her to respond well to treatment and improve.. This patient declined incredibly quickly and has very severe respiratory disease in spite of the fact that she has no known underlying chronic respiratory illness.. It remains unclear if she will pull through this. It is becoming more apparent that she might require tracheostomy if ongoing aggressive care is desired. Given her relatively good healthcare condition just days before the onset of this illness, she certainly deserves a decent trial of aggressive care. . . Code Status: Full Code Plan == Code Status: FULL CODE == Medical Decision Making: Patient is currently incapacitated to make her own healthcare decisions. It is unclear if/when she will recover capacity to do so. Since there is no written designation of healthcare surrogate see that we are aware of, proxy decision making would fall to her 2 adult children -- Eric Caballero and Zenobia Tinoco Clay. == Goals of medical treatment: Given the patient was in good health just days before the onset of this illness, goals continue to be aggressive. Family will likely opt to go forward with tracheostomy if necessary. == Symptoms: * Pain: No known prehospitalization pain syndromes. Current sources of discomfort might include orotracheal and orogastric intubations; vascular access lines; restraints; Alexandre catheter; chest tubes; prolonged bedbound status. There are orders for parenteral morphine available. No further recommendations at this time. * Dyspnea: Patient with underlying pneumonia and bilateral pneumothoraces. Dyspnea currently managed with ventilatory support. No further recommendations at this time. * Encephalopathy: Patient is currently sedated but underlying encephalopathy probably secondary to her sepsis. Hopefully this will improve if we are able to make headway with the underlying infection. No further recommendations at this time. == Daughters report that rooms in the patient's manufactured home are off limits due to mold. May want to evaluate for simultaneous fungal infection , e.g. Aspergillosis? == Palliative care will continue to follow to assist with symptom management and to further clarify goals of medical treatment as the clinical course evolves. . Attestation To help prompt me to consider important information that might be impacting today's encounter and assessment, information from prior notes written by myself or my colleagues may have been "brought forward" into today's note. My signature on this note, however, is an attestation that I personally performed the exam, history, and/or decision-making noted today, and, unless otherwise indicated, the interactions with patient, family, and staff as well as the review of records all occurred today. I also attest that the listed assessment and stated plan reflect my best clinical judgment today based on the combination of historical information, prior notes, and today's exam/ interactions. When time spent is documented, it refers only to time spent today by the signer, or if indicated, combined time spent today by collaborating physician/nurse practitioner. . Hammad Butcher MD Feb 05, 2018 20:28
--- NOTE | 2018-02-05 23:56 | HHI.IDPN ---
Subjective Subjective Remarks This is delayed entry =- pt wa seen earlier today around 1730 She mnow has 2 CT on the R side GRANT negative More positive nblood clx afebrile Antibiotics zyvox Vanco IV Past Medical History Gastric bypass Tonsillectomy Allergies: Coded Allergies: No Known Allergies (Unverified , 01/30/18) Objective . Vital Signs Date Time Temp Pulse Resp B/P (MAP) Pulse Ox O2 Delivery O2 Flow Rate FiO2 02/05/18 23:00 78 02/05/18 23:00 78 16 113/60 (77) 96 02/05/18 22:00 74 16 113/58 (76) 95 02/05/18 22:00 74 02/05/18 21:00 79 16 116/59 (78) 96 02/05/18 21:00 79 02/05/18 20:17 95 90 02/05/18 20:00 75 02/05/18 20:00 99.5 75 16 116/58 (77) 96 02/05/18 20:00 50 02/05/18 18:00 75 02/05/18 18:00 76 114/61 02/05/18 16:20 95 90 02/05/18 16:00 78 02/05/18 16:00 50 02/05/18 16:00 97.9 78 16 119/58 (78) 92 02/05/18 14:00 82 02/05/18 12:39 93 100 02/05/18 12:00 50 02/05/18 12:00 132 02/05/18 12:00 97.5 132 17 201/89 (126) 79 02/05/18 10:43 92 50 02/05/18 10:00 79 02/05/18 08:32 94 50 02/05/18 08:00 77 02/05/18 08:00 98.5 77 16 140/66 (90) 95 02/05/18 08:00 50 02/05/18 06:00 82 16 135/55 (81) 95 02/05/18 06:00 82 02/05/18 05:00 100 02/05/18 05:00 100 16 185/84 (117) 95 02/05/18 04:14 95 50 02/05/18 04:00 98.8 82 16 137/63 (87) 93 02/05/18 04:00 82 02/05/18 04:00 50 02/05/18 03:23 94 50 02/05/18 02:00 79 02/05/18 01:00 70 02/05/18 00:44 95 50 02/05/18 00:42 70 122/59 02/05/18 00:00 50 02/05/18 00:00 98.6 69 16 119/58 (78) 95 02/05/18 00:00 74 02/05/18 02/05/18 02/06/18 15:00 23:00 07:00 Intake Total 1447 ml Output Total 860 ml Balance 587 ml IV Total 900 ml Tube Feeding 487 ml Other 60 ml Output Urine Total 800 ml Chest Tube Drainage Total 60 ml # Bowel Movements 0 . Laboratory Tests Test 02/04/18 06:00 02/04/18 15:15 02/05/18 10:44 White Blood Count 19.1 TH/MM3 19.0 TH/MM3 17.7 TH/MM3 Red Blood Count 3.65 MIL/MM3 3.88 MIL/MM3 3.63 MIL/MM3 Hemoglobin 9.9 GM/DL 10.6 GM/DL 9.8 GM/DL Hematocrit 31.5 % 33.3 % 31.2 % Mean Corpuscular Volume 86.4 FL 85.8 FL 85.8 FL Mean Corpuscular Hemoglobin 27.2 PG 27.2 PG 26.9 PG Mean Corpuscular Hemoglobin Concent 31.5 % 31.7 % 31.4 % Red Cell Distribution Width 16.7 % 16.6 % 16.8 % Platelet Count 204 TH/MM3 221 TH/MM3 215 TH/MM3 Mean Platelet Volume 8.9 FL 8.6 FL 8.8 FL Neutrophils (%) (Auto) 92.8 % 92.0 % Lymphocytes (%) (Auto) 4.1 % 5.9 % Monocytes (%) (Auto) 2.9 % 1.6 % Eosinophils (%) (Auto) 0.0 % 0.3 % Basophils (%) (Auto) 0.2 % 0.2 % Neutrophils # (Auto) 17.8 TH/MM3 17.5 TH/MM3 Lymphocytes # (Auto) 0.8 TH/MM3 1.1 TH/MM3 Monocytes # (Auto) 0.6 TH/MM3 0.3 TH/MM3 Eosinophils # (Auto) 0.0 TH/MM3 0.1 TH/MM3 Basophils # (Auto) 0.0 TH/MM3 0.0 TH/MM3 CBC Comment AUTO DIFF AUTO DIFF AUTO DIFF Differential Comment AUTO DIFF CONFIRMED FINAL DIFF MANUAL FINAL DIFF MANUAL Toxic Granulation 1+ Dohle Bodies PRESENT PRESENT Platelet Estimate NORMAL NORMAL NORMAL Platelet Morphology Comment NORMAL ENLARGED NORMAL Differential Total Cells Counted 100 100 Neutrophils % (Manual) 86 % 81 % Band Neutrophils % 5 % 10 % Lymphocytes % 3 % 7 % Monocytes % 2 % 1 % Neutrophils # (Manual) 18.1 TH/MM3 16.1 TH/MM3 Myelocytes 4 % Eosinophils % 1 % Laboratory Tests Test 02/04/18 05:39 02/04/18 15:15 02/05/18 05:10 Blood Urea Nitrogen 36 MG/DL 31 MG/DL 31 MG/DL Creatinine 0.86 MG/DL 0.71 MG/DL 0.83 MG/DL Random Glucose 248 MG/DL 223 MG/DL 235 MG/DL Total Protein 6.2 GM/DL 6.1 GM/DL Albumin 1.2 GM/DL 1.2 GM/DL Calcium Level 8.5 MG/DL 8.5 MG/DL 8.9 MG/DL Alkaline Phosphatase 297 U/L 315 U/L Aspartate Amino Transf (AST/SGOT) 234 U/L 254 U/L Alanine Aminotransferase (ALT/SGPT) 205 U/L 223 U/L Total Bilirubin 0.7 MG/DL 0.9 MG/DL Sodium Level 147 MEQ/L 148 MEQ/L 149 MEQ/L Potassium Level 4.1 MEQ/L 3.5 MEQ/L 4.4 MEQ/L Chloride Level 106 MEQ/L 107 MEQ/L 106 MEQ/L Carbon Dioxide Level 39.3 MEQ/L 38.7 MEQ/L 35.9 MEQ/L Anion Gap 2 MEQ/L 2 MEQ/L 7 MEQ/L Estimat Glomerular Filtration Rate 67 ML/MIN 83 ML/MIN 70 ML/MIN Total Creatine Kinase 404 U/L Creatine Kinase MB LESS THAN 0.5 NG/ML Creatine Kinase MB % 0.1 % Troponin I LESS THAN 0.02 NG/ML Microbiology Date/Time Source Procedure Growth Status 02/04/18 06:16 Blood Peripheral Aerobic Blood Culture - Preliminary NO GROWTH IN 1 DAY Resulted 02/04/18 06:16 Blood Peripheral Anaerobic Blood Culture - Preliminary NO GROWTH IN 1 DAY Resulted 02/03/18 14:20 Blood Peripheral Aerobic Blood Culture - Preliminary Gram Positive Cocci Resulted 02/03/18 14:20 Blood Peripheral Anaerobic Blood Culture - Preliminary NO GROWTH IN 2 DAYS Resulted Imaging Last Impressions Chest X-Ray 02/05/18 0000 Signed Impressions: Service Date/Time: Monday, February 05, 2018 12:30 - CONCLUSION: Small to moderate bilateral pneumothoraces, smaller on the right and about the same on the left. Michael Espinoza MD Chest CT 01/30/18 0000 Signed Impressions: Service Date/Time: Tuesday, January 30, 2018 20:07 - CONCLUSION: 1. Dense consolidation throughout the left lingula and left lower lobe. There is more patchy areas of consolidation in the upper lobes bilaterally. This pattern is most suggestive of inflammatory/infectious processes. 2. Mild left pleural effusion. 3. Status post gastric surgery/bypass with a mild hiatal hernia. Michael Gabriel MD Physical Exam CONSTITUTIONAL/GENERAL: Opens eyes when stimulated, on the vent, NAD SKIN: No jaundice, rashes, or lesions. Ecchymoses on upper extremities. Skin temperature appropriate. generalysed edema HEAD: Atraumatic. Normocephalic. EYES: Pupils equal and round and reactive. Extraocular motions intact. No scleral icterus. No injection or drainage. ENT: No nasal discharge, orally intubated NECK: Supple, nontender. CARDIOVASCULAR: Regular rate and rhythm without murmurs, gallops, or rubs. RESPIRATORY/CHEST: Symmetric, unlabored respirations. Rhonchi b/l. CTx2 on R GASTROINTESTINAL: Abdomen soft, nondistended. No organomegaly. Mild grimacing during palpation, not guarding. GENITOURINARY: Without palpable bladder distension. Alexandre catheter in place. MUSCULOSKELETAL: Extremities without clubbing, cyanosis, + 3 diffuse edema. . NEUROLOGICAL: sedated, PSYCHIATRIC: unable to assess LINE: no evidence of infection Assessment & Plan Remarks IMPRESSION MRSA PNA Acute VDRF High grade , sustained MRSA bacteremia ? endovascular source GRANT negative PLAN Continue zyvox Continue vancomycin Fu repeat BC to document clearing Follow C/S Monitor progress Spoke with daughters at bedside Carlene Singleton MD Feb 05, 2018 23:56
[2018-02-06] VITALS (26 sets, daily range): BP systolic 110–163; BP diastolic 55–74; PULSE 68–86; RESP 13–42; TEMP 97.9–101; O2SAT 96–100
[2018-02-06] MEDS: ACETAMINOPHEN 325 MG TAB PO PRN (00:11)
[2018-02-06] MEDS: LINEZOLID 600 MG PREMIX 300 ML IV SCH ×2 (00:11→12:32)
[2018-02-06] MEDS: DILTIAZEM HCL 30 MG TAB PO SCH ×4 (00:11→17:12)
[2018-02-06] MEDS: VANCOMYCIN INJ 1,500 MG in SODIUM CHLORID 0.9% 500 ML INJ 500 ML IV SCH ×2 (00:56→12:33)
[2018-02-06] MEDS: MIDAZOLAM 100 MG/NS 100 ML DRIP Premix IV PRN ×2 (00:56→13:00)
[2018-02-06] MEDS ORDERED: diphenhydrAMINE HCL 50 MG/ML VIAL IV SCH (01:00)
[2018-02-06] MEDS: RESP: ALBUTEROL 2.5 MG/IPRATROPIUM 0.5 MG NEB (PRN) INH (03:42)
[2018-02-06] MEDS: fentaNYL 2,500 MCG/NS 250 ML IV PRN ×2 (04:59→16:03)
[2018-02-06] MEDS: INSULIN ASPART SUPPLEMENTAL SCALE SQ SCH ×6 (05:07→19:36)
[2018-02-06] MEDS: HEPARIN SODIUM - SQ 10,000 UNITS/ML VIAL SQ SCH ×3 (05:08→19:36)
[2018-02-06] MEDS: CHLORHEXIDINE GLUCONATE 2 % 1 PACK (2 CLOTHS) TOP SCH (05:12)
--- NOTE | 2018-02-06 05:53 | RADRPT ---
EXAM DATE/TIME: 02/06/2018 02:53 [facility] COMPARISON: CHEST SINGLE AP, February 05, 2018, 12:30. INDICATIONS : Short of breath. MEDICAL HISTORY : None. SURGICAL HISTORY : Bilateral chest tubes.Tubal ligation. Gastric bypass. ENCOUNTER: Subsequent ACUITY: 1 week PAIN SCORE: 0/10 LOCATION: Bilateral chest FINDINGS: Endotracheal tube is stable in satisfactory position. A nasogastric tube coils in the stomach. Bilate ral thoracostomy tubes are again noted. There appear to be significant pneumothoraces bilaterally kasandra pite this. Massive subcutaneous emphysema is present throughout. Diffuse infiltrates are present bila terally. Visualiz cardiac contours are grossly unchanged. CONCLUSION: Diffuse bilateral infiltrates. Bilateral pneumothoraces. Massive subcutaneous emphysema Michael Holloway MD on February 06, 2018 at 5:49 Board Certified Radiologist. This report was verified electronically.
[2018-02-06 06:10] LABS: AUTOMATED NEUTROPHIL # 17.2 TH/MM3 (1.8-7.7); BASOPHIL % 0.1 % (0.0-2.0); EOSINOPHIL # 0.3 TH/MM3 (0-0.4); EOSINOPHIL % 1.6 % (0.0-4.0); HEMATOCRIT 28.4 % (35.0-46.0); HEMOGLOBIN 9.1 GM/DL (11.6-15.3); LYMPHOCYTE # 1.2 TH/MM3 (1.0-4.8); MEAN CELL VOLUME 85.4 FL (80.0-100.0); MEAN CORPUSCULAR HEMOGLOBIN 27.4 PG (27.0-34.0); MEAN CORPUSCULAR HGB CONC 32.1 % (32.0-36.0); MEAN PLATELET VOLUME 9.6 FL (7.0-11.0); MONO % 2.1 % (0.0-8.0); MONOCYTE # 0.4 TH/MM3 (0-0.9); NEUT % 90.2 % (16.0-70.0); PLATELET COUNT 225 TH/MM3 (150-450); RED BLOOD COUNT 3.32 MIL/MM3 (4.00-5.30); RED CELL DISTRIBUTION WIDTH 16.4 % (11.6-17.2); WHITE BLOOD COUNT 19.1 TH/MM3 (4.0-11.0)
[2018-02-06 06:18] LABS: BICARBONATE 35.8 MEQ/L (21.0-32.0); CALCIUM 8.5 MG/DL (8.5-10.1); CREATININE 0.94 MG/DL (0.50-1.00); MAGNESIUM 2.5 MG/DL (1.5-2.5); PHOSPHORUS 3.5 MG/DL (2.5-4.9)
[2018-02-06 08:11] LABS: BANDS 23 % (0-6); LYMPHOCYTES 5 % (9-44); METAMYELOCYTES 1 % (0-1); MONOCYTES 2 % (0-8); NEUTROPHIL # MANUAL DIFF 17.8 TH/MM3 (1.8-7.7); POLYS (SEG NEUTROPHILS) 69 % (16-70)
[2018-02-06 08:12] LABS: TOXIC GRANULATION 1+ (NORMAL)
[2018-02-06] MEDS ORDERED: LIDOCAINE 1%/EPINEPHrine 1:100,000 SOLN 30 ML VIAL ONE (09:01)
[2018-02-06] MEDS: DOCUSATE SODIUM 50 MG/SENNA 8.6 MG TAB PO SCH ×2 (09:16→19:36)
[2018-02-06] MEDS: FAMOTIDINE 20 MG TAB PO SCH ×2 (09:16→19:36)
[2018-02-06] MEDS: ASPIRIN 81 MG CHEW TAB CHEW SCH (09:16)
[2018-02-06] MEDS: CHLORHEXIDINE 0.12% (ORAL KIT) 15 ML CUP MT SCH ×2 (09:29→19:37)
[2018-02-06] MEDS: SODIUM CHLORIDE 0.9% FLUSH 10 ML FLUSH IV FLUSH SCH ×2 (09:30→19:36)
[2018-02-06] MEDS ORDERED: LIDOCAINE 1%/EPINEPHrine 1:100,000 SOLN 50 ML VIAL OTHER ONE (09:30)
[2018-02-06] MEDS ORDERED: ROCURONIUM INJ 100 MG/10 ML VIAL IV ONE (10:30)
[2018-02-06] MEDS ORDERED: MIDAZOLAM HCL 5 MG/5 ML VIAL IV PUSH ONE (10:30)
--- NOTE | 2018-02-06 11:41 | RADRPT ---
EXAM DATE/TIME: 02/06/2018 11:07 [facility] COMPARISON: CHEST SINGLE AP, February 06, 2018, 2:53. INDICATIONS : Left upper chest tube placement. MEDICAL HISTORY : Sepsis. SURGICAL HISTORY : bilateral chest tubes, gastric bypass ENCOUNTER: Initial ACUITY: 1 week PAIN SCORE: Non-responsive. LOCATION: Bilateral chest FINDINGS: No bilateral chest catheters stable in position. Interval placement of a large bore left chest tube with the tip and side-port in the upper left chest oh stopped ET tube in good position. Gastric tube traverses the [id number]. There has been interval resolution of the left pneumothorax. Small persistent apical pneumothorax on the right side measures 6 mm (prior 2 cm). Increasing consolidation left lower lung with complete l oss of delineation of the left hemidiaphragm. Patchy infiltrates in the right lung stable. Massive subcutaneous emphysema superimposed pulmonary chest and supraclavicular region. CONCLUSION: Interval resolution of left pneumothorax status post 2nd chest tube placement. The interval decrease in the right pneumothorax, now measuring 6 mm. Ilya Harris MD on February 06, 2018 at 11:37 Board Certified Radiologist. This report was verified electronically.
[2018-02-06] MEDS ORDERED: PHARMACY ORDERED LAB ONE ×2 (11:45→23:45)
--- NOTE | 2018-02-06 11:56 | PD.PROCEDR ---
Procedure Note Procedure Procedure: Left chest tube placement [id number] Indication: Bilateral SQ emphysema, left persistent pneumothorax Details of procedure: Informed consent was obtained from the healthcare proxy 2 daughters. The patient was laid supine. The lateral chest wall was cleaned with ChloraPrep twice. Regional sterile drapes were applied. 1% lidocaine with epinephrine 8 cc , was used for local anesthesia and injected into the subcutaneous and deep muscle tissues. A 2 cm skin incision was made with a scalpel blade. A hemostat was used for blunt dissection. The hemostat was entered into the pleural space superior to the rib with release of air. I explored the wound with my finger. A size 28 Turkish chest tube was inserted with a Marine clamp into the pleural cavity and directed toward the apex/anterior to a depth of 16. 0-0 silk was used to close the wound and to secure the chest tube. A sterile Vaseline gauze dressing was applied. The chest tube was connected to a Pleur-evac drainage system. There was a small air leak. There was 5 cc output from the chest tube. Estimated blood loss: 5 cc CXR obtained. Complications: None. Dilcia Cooper MD Feb 06, 2018 11:56
--- NOTE | 2018-02-06 12:02 | PD.PROCEDR ---
Procedure Note Procedure Procedure: Right chest tube placement Indication: Persistent right pneumothorax ,significant bilateral SQ emphysema Details of procedure: Informed consent was obtained from the healthcare proxy 2 daughters .The patient was laid supine. The lateral chest wall was cleaned with ChloraPrep twice. Regional sterile drapes were applied. 1% lidocaine with epinephrine was used for local anesthesia and injected into the subcutaneous and deep muscle tissues. A 2 cm skin incision was made with a scalpel blade. A hemostat was used for blunt dissection. The hemostat was entered into the pleural space superior to the rib with release of air. I explored the wound with my finger. A size 28 Citizen [place] chest tube was inserted with a Marine clamp into the pleural cavity and directed toward the apex/anterior to a depth of 16. 0-0 silk was used to close the wound and to secure the chest tube. A sterile Vaseline gauze dressing was applied. The chest tube was connected to a Pleur-evac drainage system. There was no air leak. There was 5 cc output from the chest tube. Estimated blood loss: 5 cc CXR pending Complications: None. Dilcia Cooper MD Feb 06, 2018 12:01
--- NOTE | 2018-02-06 12:14 | HHI.CCPN ---
Subjective Remarks/Hospital Course 01/30: 62-year-old female presents for evaluation of increasing shortness of breath and chest pain. She reports 1 week of coughing 3 days of pain in her left chest which radiates to her back, which prompted the visit to the emergency room yesterday. She rates her pain a 6 out of 10. She reports fevers , chills, fatigue, mild nausea. She denies any abdominal pain, vomiting. Patient denies any significant past medical history. Symptom onset was gradual , symptom severity is severe, there are no alleviating factors. Patient states that she has been taking the azithromycin antibiotics that were prescribed to her. She denies any current or historical tobacco use. 01/31: Intubated at 1 AM this morning and placed on mechanical ventilation due to worsening respiratory distress. Currently sedated, orally intubated on mechanical ventilation. 02/01: Remains sedated, orally intubated on mechanical ventilation. Went into A. fib with RVR this morning. Loaded with amiodarone, started on amiodarone drip and given digoxin 0.5 mg IV 02/02: Remains sedated, orally intubated on mechanical ventilation. Right sided pigtail catheter in place with 1+ air leak. Converted to sinus rhythm overnight. Remains on amiodarone gtt. 02/03: Remains sedated, orally intubated on mechanical ventilation. 1+ air leak and right sided pigtail catheter. Tolerating tube feeds. Remains on amiodarone gtt. 02/04: Noted to have pneumothorax on the left side this morning on routine chest x -ray which appeared to be under tension. Right sided pigtail catheter placed by Dr. Peña with reexpansion of lung. Patient remains sedated, orally intubated on mechanical ventilation. 1+ airleak and bilateral chest tubes noted. 02/05: Afebrile. Persistent leukocytosis, bilateral chest tubes continue on wall suction. Chest x-ray pending this a.m.. Patient scheduled for GRANT today, discussed with Dr. Vázquez. Patient continues on amiodarone infusion with sinus rhythm. Postprocedure GRANT,this afternoon, the patient became extremely agitated, noted significant increase in subcu emphysema, peak pressures 50's, O2 saturation significantly decreased to 78-80 %. Stat chest x-ray performed patient was noted to have a significant right pneumothorax. 20 Guyanese right chest tube placement emergently, with increase in O2 saturation decrease in peak inspiratory pressures. 02/06: Afebrile. Patient with persistent bilateral pneumothoraces, with diffuse bilateral infiltrates and massive SQ emphysema. O2 requirement significantly increased during the night, PIP 38-44. 28 F chest tubes were placed bilaterally with resolution of left pneumothorax and minimization of right pneumothorax, and improved oxygenation. Objective Vital Signs Date Time Temp Pulse Resp B/P (MAP) Pulse Ox O2 Delivery O2 Flow Rate FiO2 02/06/18 08:01 100 70 02/06/18 06:00 68 02/06/18 04:00 98.9 16 137/68 (91) 02/06/18 03:50 Ventilator Intake and Output 02/06/18 02/06/18 02/07/18 08:00 16:00 00:00 Intake Total 1781 ml Output Total 660 ml Balance 1121 ml Result Diagram: 02/06/18 0530 02/06/18 0530 Imaging Last Impressions Chest X-Ray 02/06/18 0600 Signed Impressions: Service Date/Time: Tuesday, February 06, 2018 02:53 - CONCLUSION: Diffuse bilateral infiltrates. Bilateral pneumothoraces. Massive subcutaneous emphysema Michael Hollowya MD Chest CT 01/30/18 0000 Signed Impressions: Service Date/Time: Tuesday, January 30, 2018 20:07 - CONCLUSION: 1. Dense consolidation throughout the left lingula and left lower lobe. There is more patchy areas of consolidation in the upper lobes bilaterally. This pattern is most suggestive of inflammatory/infectious processes. 2. Mild left pleural effusion. 3. Status post gastric surgery/bypass with a mild hiatal hernia. Michael Gabriel MD Last Impressions Chest X-Ray 02/04/18 1700 Signed Impressions: Service Date/Time: Sunday, February 04, 2018 17:03 - CONCLUSION: Persistent 1.5 cm right pneumothorax with chest drainage catheter in place stop extensive diffuse bilateral subcutaneous emphysema, stable. Ilya Harris MD Chest CT 01/30/18 0000 Signed Impressions: Service Date/Time: Tuesday, January 30, 2018 20:07 - CONCLUSION: 1. Dense consolidation throughout the left lingula and left lower lobe. There is more patchy areas of consolidation in the upper lobes bilaterally. This pattern is most suggestive of inflammatory/infectious processes. 2. Mild left pleural effusion. 3. Status post gastric surgery/bypass with a mild hiatal hernia. Michael Gabriel MD Last 24 hours Impressions Chest X-Ray 01/30/18 1556 Signed Impressions: Service Date/Time: Tuesday, January 30, 2018 16:01 - CONCLUSION: 1. Bilateral airspace disease with significant consolidation in the left base. 2. Elevated left hemidiaphragm versus eventration. Ramon Blunt MD Chest CT 01/30/18 0000 Signed Impressions: Service Date/Time: Tuesday, January 30, 2018 20:07 - CONCLUSION: 1. Dense consolidation throughout the left lingula and left lower lobe. There is more patchy areas of consolidation in the upper lobes bilaterally. This pattern is most suggestive of inflammatory/infectious processes. 2. Mild left pleural effusion. 3. Status post gastric surgery/bypass with a mild hiatal hernia. Michael Gabriel MD Procedures 02/05- Right emergent 20 F chest tube placement 02/06: Left 28 Guyanese chest tube placement, right chest tube replacement 28 Guyanese Objective Remarks HEENT/ Neuro: Sedated, orally intubated, Pallor present, no icterus, tongue/ mucosa moist Neck: No JVD Chest/Pulm: on mech vent, air entry decreased bilaterally at bases, scattered rhonchi bilaterally. Bilateral pigtail catheters insitu. 28F chest tubes bilaterally to -40cm H20 CVS: S1-S2 regular, no murmur GI/abdomen: soft, nontender, bowel sounds hypoactive Neuro: RASS -2, currently on fentanyl and Versed infusions. Patient moving extremities 4 Extremities: warm bilaterally, 1+bilateral peripheral edema upper and lower extremities A/P Assessment and Plan Acute Respiratory failure MRSA pneumonia MRSA bacteremia Sepsis COPD Persistent bilateral pneumothorax - Antibiotics per ID. On Zyvox. MRSA bacteremia persists from blood culture on 02/01. Dr. Singleton added IV vancomycin and consulted cardiology for GRANT to evaluate heart valves. -Repeat blood cultures per ID. - Bal culture/blood cultures growing MRSA -Legionella and strep pneumo antigen negative -Consulted ID for sepsis/pneumonia - Dr. Singleton following. - DuoNeb scheduled and when necessary - Titrated off IV steroids by 02/03 -Bilateral pigtail catheters in place with 1+ air leak, continue on suction -40 on right, -20 on left -02/06; chest x-ray diffuse bilateral infiltrates massive subcu emphysema bilateral pneumothoraces. Placement of 28 Guyanese left chest tube, repeat placement of 20 Guyanese chest tube with 28 Guyanese chest tube -Possible recurrent pneumothoraces secondary to post influenza viral syndrome. Discussed with Dr. Butcher. Acute kidney injury-resolved Dehydration-resolved - s/p IV fluids resuscitation. KVO IVF - Strict I's and O's - Monitor trend of creatinine and electrolytes. Improvement in creatinine A. fib with RVR (converted to RSR 02/02) -02/05 amiodarone infusion discontinued. -Digoxin 0.5 mg IV x 1 on 02/01. - 02/05 GRANT pending -no valvular vegetations. EF 55-60%, trace MVR, mild TVR PAP 35 DVT GI prophylaxis - Teds SCDs - Subcutaneous heparin - Pepcid Lines: Right subclavian central line inserted 02/01 Critical Care: my billing statement This patient remains critically ill with one or more organ systems which are or may become a threat to life. I have spent in excess of 30 minutes discontinuously in the care and management of this patient. This time is exclusive of procedures, and includes, but is not limited to, evaluation of the patient, review of the medical record, discussions with family, consultants, nursing staff, or respiratory therapy, and documentation in the medical record. D/W [employer] SUPER[employer]ENDENT ([place]) and Dr. Butcher Physician Dilcia Zhong MD Feb 06, 2018 12:14
--- NOTE | 2018-02-06 12:21 | RADRPT ---
EXAM DATE/TIME: 02/06/2018 11:46 [facility] COMPARISON: CHEST SINGLE AP, February 06, 2018, 11:07. INDICATIONS : Removed a chest on the right and replaced it with another. MEDICAL HISTORY : Sepsis. SURGICAL HISTORY : bilateral chest tubes , gastric bypass ENCOUNTER: Initial ACUITY: 1 week PAIN SCORE: Non-responsive. LOCATION: Bilateral chest FINDINGS: Small caliber and larger caliber right chest tube present. Extensive subcutaneous air in soft tissues . Bilateral airspace disease, left greater than right similar to exam from earlier today. There is al so small caliber and a larger caliber left chest tube. Heart size within normal limits. Endotracheal tube in good position. CONCLUSION: Bilateral small caliber and larger caliber chest tubes with tiny right apical pneumothorax. Bilateral airspace disease is stable. Right central line in subclavian vein. Everett Ng MD on February 06, 2018 at 12:18 Board Certified Radiologist. This report was verified electronically.
--- NOTE | 2018-02-06 12:47 | HHI.HCPN ---
Reason for visit a. To assist with evaluation and management of symptoms including: dyspnea; encephalopathy, pain b. To assist medical decision maker(s) with: better understanding of current medical conditions; weighing benefits/burdens of medical treatment options; making medical treatment decisions. . Subjective/Interval History Pt had increasing 02 requirements during the night and CXR shows persistent bilateral pneumothoraces in addition to her bilateral infiltrates and massive subcutaneous emphysema. At time of my visit, Dr. Cooper is placing 28 F chest tubes bilaterally in addition to the bilateral pig-tail catheters that remain in place. Ms. Tinoco remains sedated, vent dependent, minimally responsive in the MICU. I spoke by phone with Dr. Singleton in ID to better understand what might cause her recurrent pneumothoraces and inability to clear the MRSA given that she had no prior history of significant lung disease and was fairly good health. Dr. Singleton feels the picture is most consistent with a post-influenza pneumonia. WBC remains high at 19.1. REnal function is slowly declining though GFR still at 60. Very low ablumin. Blood still positive for MRSA on 02/03/18. Remains on fentanyl and midazolam drips. . Family/friend interactions Met with daughter at bedside for about 25 minutes. Discussed current condition including multiple pneumothoraces; subcutaneous emphysema; ongoing positive MRSA cultures; 02 needs; etc. Discussed the theory presented by Dr. Singleton that presentation is most consistent with an influenza pneumonia. Discussed prognosis and resuscitation status. She will discuss with rest of family, but she is leaning to.... * Alt code -- no chest comp; no shock * Continue aggressive care short of chest compressions/shock for now * If there is ongoing decline or it appears patient will not be able to be weaned from went, will consider withdrawal of life support. . Advance Directives Living Will: Never completed Health Care Surrogate: Never completed Durable Power of Auricular Therapist: Never completed Advance Directive Specifics Date completed: Patient has never completed an advanced directive. . Health Care Surrogate(s): There is no written designation of healthcare surrogate. . Documented care wishes: There is no written documentation of healthcare goals/preferences. . Objective Vital Signs Date Time Temp Pulse Resp B/P (MAP) Pulse Ox O2 Delivery O2 Flow Rate FiO2 02/06/18 12:00 98.4 86 42 140/67 (91) 100 02/06/18 08:01 100 70 02/06/18 08:00 77 02/06/18 08:00 97.9 77 13 163/74 (103) 100 02/06/18 06:00 68 02/06/18 04:00 90 02/06/18 04:00 98.9 74 16 137/68 (91) 98 02/06/18 04:00 74 02/06/18 03:50 98 Ventilator 02/06/18 03:46 98 90 02/06/18 03:00 70 16 116/61 (79) 97 02/06/18 03:00 70 02/06/18 02:00 72 02/06/18 02:00 72 16 115/55 (75) 97 02/06/18 01:15 69 16 110/56 (74) 96 02/06/18 01:15 69 02/06/18 01:00 73 02/06/18 01:00 73 16 138/64 (88) 96 02/06/18 00:33 97 90 02/06/18 00:00 101.0 79 16 122/57 (78) 96 02/06/18 00:00 90 02/06/18 00:00 79 02/05/18 23:00 78 02/05/18 23:00 78 16 113/60 (77) 96 02/05/18 22:00 74 16 113/58 (76) 95 02/05/18 22:00 74 02/05/18 21:00 79 16 116/59 (78) 96 02/05/18 21:00 79 02/05/18 20:17 95 90 02/05/18 20:00 75 02/05/18 20:00 99.5 75 16 116/58 (77) 96 02/05/18 20:00 100 02/05/18 18:00 75 02/05/18 18:00 76 114/61 02/05/18 16:20 95 90 02/05/18 16:00 78 02/05/18 16:00 50 02/05/18 16:00 97.9 78 16 119/58 (78) 92 02/05/18 14:00 82 02/05/18 12:39 93 100 Intake & Output 02/06/18 02/06/18 07:00 19:00 Intake Total 1781 ml Output Total 660 ml Balance 1121 ml IV Total 1165 ml Tube Feeding 496 ml Other 120 ml Output Urine Total 600 ml Chest Tube Drainage Total 60 ml # Bowel Movements 0 . Physical Exam CONSTITUTIONAL/GENERAL: This is an obese patient, minimally responsive, sedated , in the medical intensive care unit bed. No apparent distress. Significant subcutaneous emphysema is present. TUBES/LINES/DRAINS: Orotracheal tube; orogastric tube; right subclavian central line; bilateral chest tubes; peripheral IV; soft wrist restraints; sequential compressive devices. SKIN: No jaundice, rashes, or lesions. Ecchymoses on upper extremities. No wounds seen anteriorly. Skin temperature appropriate. Not diaphoretic. EYES: Pupils equal and round. Unable to evaluate extraocular movements. Lids quite swollen from SQ emphysema. No scleral icterus. No injection or drainage. Fundi not examined. ENT: Unable to evaluate hearing. Nose without bleeding or purulent drainage. Throat without visible erythema, exudates, masses, or lesions though difficult to assess adequately with intubations. NECK: Neck somewhat difficult to examine due to obesity and SQ emphysema. . Trachea midline. CARDIOVASCULAR: Regular rate/rhythm without murmurs, gallops, or rubs.Unable to assess JVD. RESPIRATORY/CHEST: Bilateral chest tubes. Symmetric respirations on vent. Decreased air movement at bases. Faint wheezing bilaterally. GASTROINTESTINAL: Abdomen obese, soft, non-tender, nondistended. No hepato- splenomegaly, or palpable masses. Bowel sounds hypoactive GENITOURINARY: Without palpable bladder distension. Alexandre catheter in place. MUSCULOSKELETAL: Extremities without clubbing, cyanosis. Widespread edema vs SQ emphysema (probably the latter). No mottling . LYMPHATICS: Not examined. NEUROLOGICAL: Sedated. No spontaneous movements seen. Will withdraw to noxious stimuli. PSYCHIATRIC: Unable to assess due to level of responsiveness. . Diagnostic Tests Laboratory Laboratory Tests Test 02/04/18 05:39 02/04/18 06:00 02/04/18 14:48 02/04/18 15:15 Blood Urea Nitrogen 36 MG/DL (7-18) 31 MG/DL (7-18) Creatinine 0.86 MG/DL (0.50-1.00) 0.71 MG/DL (0.50-1.00) Random Glucose 248 MG/DL (74-106) 223 MG/DL (74-106) Total Protein 6.2 GM/DL (6.4-8.2) 6.1 GM/DL (6.4-8.2) Albumin 1.2 GM/DL (3.4-5.0) 1.2 GM/DL (3.4-5.0) Calcium Level 8.5 MG/DL (8.5-10.1) 8.5 MG/DL (8.5-10.1) Alkaline Phosphatase 297 U/L (45-117) 315 U/L (45-117) Aspartate Amino Transf (AST/SGOT) 234 U/L (15-37) 254 U/L (15-37) Alanine Aminotransferase (ALT/SGPT) 205 U/L (10-53) 223 U/L (10-53) Total Bilirubin 0.7 MG/DL (0.2-1.0) 0.9 MG/DL (0.2-1.0) Sodium Level 147 MEQ/L (136-145) 148 MEQ/L (136-145) Potassium Level 4.1 MEQ/L (3.5-5.1) 3.5 MEQ/L (3.5-5.1) Chloride Level 106 MEQ/L (98-107) 107 MEQ/L (98-107) Carbon Dioxide Level 39.3 MEQ/L (21.0-32.0) 38.7 MEQ/L (21.0-32.0) Anion Gap 2 MEQ/L (5-15) 2 MEQ/L (5-15) Estimat Glomerular Filtration Rate 67 ML/MIN (>89) 83 ML/MIN (>89) Random Vancomycin Level 12.5 COMMENT White Blood Count 19.1 TH/MM3 (4.0-11.0) 19.0 TH/MM3 (4.0-11.0) Red Blood Count 3.65 MIL/MM3 (4.00-5.30) 3.88 MIL/MM3 (4.00-5.30) Hemoglobin 9.9 GM/DL (11.6-15.3) 10.6 GM/DL (11.6-15.3) Hematocrit 31.5 % (35.0-46.0) 33.3 % (35.0-46.0) Mean Corpuscular Volume 86.4 FL (80.0-100.0) 85.8 FL (80.0-100.0) Mean Corpuscular Hemoglobin 27.2 PG (27.0-34.0) 27.2 PG (27.0-34.0) Mean Corpuscular Hemoglobin Concent 31.5 % (32.0-36.0) 31.7 % (32.0-36.0) Red Cell Distribution Width 16.7 % (11.6-17.2) 16.6 % (11.6-17.2) Platelet Count 204 TH/MM3 (150-450) 221 TH/MM3 (150-450) Mean Platelet Volume 8.9 FL (7.0-11.0) 8.6 FL (7.0-11.0) Neutrophils (%) (Auto) 92.8 % (16.0-70.0) 92.0 % (16.0-70.0) Lymphocytes (%) (Auto) 4.1 % (9.0-44.0) 5.9 % (9.0-44.0) Monocytes (%) (Auto) 2.9 % (0.0-8.0) 1.6 % (0.0-8.0) Eosinophils (%) (Auto) 0.0 % (0.0-4.0) 0.3 % (0.0-4.0) Basophils (%) (Auto) 0.2 % (0.0-2.0) 0.2 % (0.0-2.0) Neutrophils # (Auto) 17.8 TH/MM3 (1.8-7.7) 17.5 TH/MM3 (1.8-7.7) Lymphocytes # (Auto) 0.8 TH/MM3 (1.0-4.8) 1.1 TH/MM3 (1.0-4.8) Monocytes # (Auto) 0.6 TH/MM3 (0-0.9) 0.3 TH/MM3 (0-0.9) Eosinophils # (Auto) 0.0 TH/MM3 (0-0.4) 0.1 TH/MM3 (0-0.4) Basophils # (Auto) 0.0 TH/MM3 (0-0.2) 0.0 TH/MM3 (0-0.2) CBC Comment AUTO DIFF AUTO DIFF Differential Comment AUTO DIFF CONFIRMED FINAL DIFF MANUAL Toxic Granulation 1+ (NORMAL) Dohle Bodies PRESENT (NONE SEEN) PRESENT (NONE SEEN) Platelet Estimate NORMAL (NORMAL) NORMAL (NORMAL) Platelet Morphology Comment NORMAL (NORMAL) ENLARGED (NORMAL) Blood Gas Puncture Site RT RADIAL Blood Gas Patient Temperature 98.6 Blood Gas HCO3 38 mmol/L (22-26) Blood Gas Base Excess 12.5 mmol/L (-2-2) Blood Gas Oxygen Saturation 96 % (90-100) Arterial Blood pH 7.38 (7.380-7.420) Arterial Blood Partial Pressure CO2 65 mmHg (38-42) Arterial Blood Partial Pressure O2 122 mmHg (61-120) Arterial Blood Oxygen Content 16.4 Vol % (12.0-20.0) Arterial Blood Carboxyhemoglobin 0.6 % (0-4) Arterial Blood Methemoglobin 1.3 % (0-2) Blood Gas Hemoglobin 12.0 G/DL (12.0-16.0) Oxygen Delivery Device VENTILATOR Blood Gas Ventilator Setting PRVC/AC Blood Gas Inspired Oxygen 100 % Differential Total Cells Counted 100 Neutrophils % (Manual) 86 % (16-70) Band Neutrophils % 5 % (0-6) Lymphocytes % 3 % (9-44) Monocytes % 2 % (0-8) Neutrophils # (Manual) 18.1 TH/MM3 (1.8-7.7) Myelocytes 4 % (0-0) Total Creatine Kinase 404 U/L (26-192) Creatine Kinase MB LESS THAN 0.5 NG/ML Creatine Kinase MB % 0.1 % (0.0-4.0) Troponin I LESS THAN 0.02 NG/ML Test 02/05/18 05:10 02/05/18 10:44 02/06/18 05:30 Blood Urea Nitrogen 31 MG/DL (7-18) 38 MG/DL (7-18) Creatinine 0.83 MG/DL (0.50-1.00) 0.94 MG/DL (0.50-1.00) Random Glucose 235 MG/DL (74-106) 203 MG/DL (74-106) Calcium Level 8.9 MG/DL (8.5-10.1) 8.5 MG/DL (8.5-10.1) Sodium Level 149 MEQ/L (136-145) 146 MEQ/L (136-145) Potassium Level 4.4 MEQ/L (3.5-5.1) 4.2 MEQ/L (3.5-5.1) Chloride Level 106 MEQ/L (98-107) 107 MEQ/L (98-107) Carbon Dioxide Level 35.9 MEQ/L (21.0-32.0) 35.8 MEQ/L (21.0-32.0) Anion Gap 7 MEQ/L (5-15) 3 MEQ/L (5-15) Estimat Glomerular Filtration Rate 70 ML/MIN (>89) 60 ML/MIN (>89) Random Vancomycin Level 8.0 COMMENT White Blood Count 17.7 TH/MM3 (4.0-11.0) 19.1 TH/MM3 (4.0-11.0) Red Blood Count 3.63 MIL/MM3 (4.00-5.30) 3.32 MIL/MM3 (4.00-5.30) Hemoglobin 9.8 GM/DL (11.6-15.3) 9.1 GM/DL (11.6-15.3) Hematocrit 31.2 % (35.0-46.0) 28.4 % (35.0-46.0) Mean Corpuscular Volume 85.8 FL (80.0-100.0) 85.4 FL (80.0-100.0) Mean Corpuscular Hemoglobin 26.9 PG (27.0-34.0) 27.4 PG (27.0-34.0) Mean Corpuscular Hemoglobin Concent 31.4 % (32.0-36.0) 32.1 % (32.0-36.0) Red Cell Distribution Width 16.8 % (11.6-17.2) 16.4 % (11.6-17.2) Platelet Count 215 TH/MM3 (150-450) 225 TH/MM3 (150-450) Mean Platelet Volume 8.8 FL (7.0-11.0) 9.6 FL (7.0-11.0) CBC Comment AUTO DIFF AUTO DIFF Differential Total Cells Counted 100 100 Neutrophils % (Manual) 81 % (16-70) 69 % (16-70) Band Neutrophils % 10 % (0-6) 23 % (0-6) Lymphocytes % 7 % (9-44) 5 % (9-44) Monocytes % 1 % (0-8) 2 % (0-8) Eosinophils % 1 % (0-4) Neutrophils # (Manual) 16.1 TH/MM3 (1.8-7.7) 17.8 TH/MM3 (1.8-7.7) Differential Comment FINAL DIFF MANUAL FINAL DIFF MANUAL Platelet Estimate NORMAL (NORMAL) NORMAL (NORMAL) Platelet Morphology Comment NORMAL (NORMAL) NORMAL (NORMAL) Neutrophils (%) (Auto) 90.2 % (16.0-70.0) Lymphocytes (%) (Auto) 6.0 % (9.0-44.0) Monocytes (%) (Auto) 2.1 % (0.0-8.0) Eosinophils (%) (Auto) 1.6 % (0.0-4.0) Basophils (%) (Auto) 0.1 % (0.0-2.0) Neutrophils # (Auto) 17.2 TH/MM3 (1.8-7.7) Lymphocytes # (Auto) 1.2 TH/MM3 (1.0-4.8) Monocytes # (Auto) 0.4 TH/MM3 (0-0.9) Eosinophils # (Auto) 0.3 TH/MM3 (0-0.4) Basophils # (Auto) 0.0 TH/MM3 (0-0.2) Metamyelocytes 1 % (0-1) Toxic Granulation 1+ (NORMAL) Phosphorus Level 3.5 MG/DL (2.5-4.9) Magnesium Level 2.5 MG/DL (1.5-2.5) . Result Diagram: 02/06/18 0530 02/06/18 0530 Microbiology Microbiology Date/Time Source Procedure Growth Status 02/04/18 06:16 Blood Peripheral Aerobic Blood Culture - Preliminary NO GROWTH IN 2 DAYS Resulted 02/04/18 06:16 Blood Peripheral Anaerobic Blood Culture - Preliminary NO GROWTH IN 2 DAYS Resulted 02/03/18 14:20 Blood Peripheral Aerobic Blood Culture - Final S. Aureus Mrsa Resulted 02/03/18 14:20 Blood Peripheral Anaerobic Blood Culture - Preliminary NO GROWTH IN 3 DAYS Resulted . Imaging Last Impressions Chest X-Ray 02/06/18 0600 Signed Impressions: Service Date/Time: Tuesday, February 06, 2018 02:53 - CONCLUSION: Diffuse bilateral infiltrates. Bilateral pneumothoraces. Massive subcutaneous emphysema Michael Holloway MD Chest CT 01/30/18 0000 Signed Impressions: Service Date/Time: Wednesday, January 30, 2018 20:07 - CONCLUSION: 1. Dense consolidation throughout the left lingula and left lower lobe. There is more patchy areas of consolidation in the upper lobes bilaterally. This pattern is most suggestive of inflammatory/infectious processes. 2. Mild left pleural effusion. 3. Status post gastric surgery/bypass with a mild hiatal hernia. Michael Gabriel MD . Procedures * Intubation/mechanical ventilation right subclavian * Central line placement * Bilateral chest tube placement * Transesophageal echo * . Assessment and Plan Disease Oriented Problem List: (1) PNA (pneumonia) Comment: MRSA (2) Sepsis Comment: MRSA (3) Anemia (4) Hypoalbuminemia (5) Bilateral pneumothoraces Comment: Recurrent and multiple pneumothoraces . (6) ARF (acute renal failure) Comment: REsolving Symptom Scale: (1) Pain 0-10 Scale: Unable to quantify Comment: No known prehospitalization pain syndromes. Current sources of discomfort might include orotracheal and orogastric intubations; vascular access lines; restraints; Alexandre catheter; chest tubes; prolonged bedbound status. (2) Dyspnea 0-10 Scale: Unable to quantify Comment: Patient with underlying pneumonia and bilateral pneumothoraces. Dyspnea currently managed with ventilatory support. (3) Encephalopathy 0-10 Scale: Unable to quantify Pertinent Non-Medical Issues Psychosocial: Has a male partner she normally lives [facility] a [facility]. He is a smoker. Her 2 daughters are now down from [place] to help. Spiritual: Patient is [employer]. Passenger Locomotive Engineer visits would be appreciated. Legal: There are no advance directives. Without written designation of a healthcare surrogate, proxy decision making would fall to both adult daughters. Ethical issues impacting care: Patient is currently incapacitated to make her own medical decisions. It is unclear if/when she will become capacitated to do so. . Important Contacts Alona Caballero (daughter and co-health care proxy) [phone] Zenobia Clay (daughter and co-health care proxy) [phone] Brett Mackay (boyfriend -- NO DECISION MAKING RIGHTS unless there is written documentation saying otherwise) [phone] . Prognosis On the one hand, other than her morbid obesity, this patient has very few health problems and has managed to stay out of the hospital. Ordinarily, we would expect her to respond well to treatment and improve.. This patient declined incredibly quickly and has very severe respiratory disease in spite of the fact that she has no known underlying chronic respiratory illness.. It remains unclear if she will pull through this. It is becoming more apparent that she might require tracheostomy if ongoing aggressive care is desired. Given her relatively good healthcare condition just days before the onset of this illness, she certainly deserves a decent trial of aggressive care. . . Code Status: Full Code Plan == Code Status: FULL CODE. (Family planning to meet in evening of 02/06/18 to consider changing status to Alt Code). == Medical Decision Making: Patient is currently incapacitated to make her own healthcare decisions. It is unclear if/when she will recover capacity to do so. Since there is no written designation of healthcare surrogate see that we are aware of, proxy decision making would fall to her 2 adult children -- Eric Caballero and Zenobia Clay. == Goals of medical treatment: Given the patient was in good health just days before the onset of this illness, goals continue to be aggressive. Given downhill course, family not so certain about going forward with tracheostomy. == Symptoms: * Pain: No known pre-hospitalization pain syndromes. Current sources of discomfort might include orotracheal and orogastric intubations; vascular access lines; restraints; Alexandre catheter; chest tubes; prolonged bedbound status. Currently on fentnayl/midazolam. No further recommendations at this time. * Dyspnea: Patient with underlying pneumonia and bilateral pneumothoraces. Dyspnea currently managed with ventilatory support. Bilateral chest tubes in place. No further recommendations at this time. * Encephalopathy: Patient is currently sedated but underlying encephalopathy probably secondary to her sepsis. Hopefully this will improve if we are able to make headway with the underlying infection. No further recommendations at this time. == Family to discuss goals of care evening of 02/06/18. Will likely still want ongoing aggressive care short of chest compressions/shock. == Palliative care will continue to follow to assist with symptom management and to further clarify goals of medical treatment as the clinical course evolves. . Time Spent Total Floor Time (mins): 45 (total floor time included chart review; patient exam; discussion of case with Dr. Cooper, case discussion with Dr. Singleton, above referenced bedside family meeting with daughter; documetnation.) Face to Face Time (mins): 30 >50% Counseling/Coord of Care: Yes Attestation To help prompt me to consider important information that might be impacting today's encounter and assessment, information from prior notes written by myself or my colleagues may have been "brought forward" into today's note. My signature on this note, however, is an attestation that I personally performed the exam, history, and/or decision-making noted today, and, unless otherwise indicated, the interactions with patient, family, and staff as well as the review of records all occurred today. I also attest that the listed assessment and stated plan reflect my best clinical judgment today based on the combination of historical information, prior notes, and today's exam/ interactions. When time spent is documented, it refers only to time spent today by the signer, or if indicated, combined time spent today by collaborating physician/nurse practitioner. . Hammad Butcher MD Feb 06, 2018 12:46
--- NOTE | 2018-02-06 14:28 | HHI.IDPN ---
Subjective Subjective Remarks Events noted L sided pneumothorax fever 101 in 24 hrs On vent FiO2 70%, PEEP 8 Antibiotics zyvox Vanco IV Past Medical History Gastric bypass Tonsillectomy Allergies: Coded Allergies: No Known Allergies (Unverified , 01/30/18) Objective . Vital Signs Date Time Temp Pulse Resp B/P (MAP) Pulse Ox O2 Delivery O2 Flow Rate FiO2 02/06/18 12:00 98.4 86 42 140/67 (91) 100 02/06/18 08:01 100 70 02/06/18 08:00 77 02/06/18 08:00 97.9 77 13 163/74 (103) 100 02/06/18 06:00 68 02/06/18 04:00 90 02/06/18 04:00 98.9 74 16 137/68 (91) 98 02/06/18 04:00 74 02/06/18 03:50 98 Ventilator 02/06/18 03:46 98 90 02/06/18 03:00 70 16 116/61 (79) 97 02/06/18 03:00 70 02/06/18 02:00 72 02/06/18 02:00 72 16 115/55 (75) 97 02/06/18 01:15 69 16 110/56 (74) 96 02/06/18 01:15 69 02/06/18 01:00 73 02/06/18 01:00 73 16 138/64 (88) 96 02/06/18 00:33 97 90 02/06/18 00:00 101.0 79 16 122/57 (78) 96 02/06/18 00:00 90 02/06/18 00:00 79 02/05/18 23:00 78 02/05/18 23:00 78 16 113/60 (77) 96 02/05/18 22:00 74 16 113/58 (76) 95 02/05/18 22:00 74 02/05/18 21:00 79 16 116/59 (78) 96 02/05/18 21:00 79 02/05/18 20:17 95 90 02/05/18 20:00 75 02/05/18 20:00 99.5 75 16 116/58 (77) 96 02/05/18 20:00 100 02/05/18 18:00 75 02/05/18 18:00 76 114/61 02/05/18 16:20 95 90 02/05/18 16:00 78 02/05/18 16:00 50 02/05/18 16:00 97.9 78 16 119/58 (78) 92 . Laboratory Tests Test 02/04/18 15:15 02/05/18 10:44 02/06/18 05:30 White Blood Count 19.0 TH/MM3 17.7 TH/MM3 19.1 TH/MM3 Red Blood Count 3.88 MIL/MM3 3.63 MIL/MM3 3.32 MIL/MM3 Hemoglobin 10.6 GM/DL 9.8 GM/DL 9.1 GM/DL Hematocrit 33.3 % 31.2 % 28.4 % Mean Corpuscular Volume 85.8 FL 85.8 FL 85.4 FL Mean Corpuscular Hemoglobin 27.2 PG 26.9 PG 27.4 PG Mean Corpuscular Hemoglobin Concent 31.7 % 31.4 % 32.1 % Red Cell Distribution Width 16.6 % 16.8 % 16.4 % Platelet Count 221 TH/MM3 215 TH/MM3 225 TH/MM3 Mean Platelet Volume 8.6 FL 8.8 FL 9.6 FL Neutrophils (%) (Auto) 92.0 % 90.2 % Lymphocytes (%) (Auto) 5.9 % 6.0 % Monocytes (%) (Auto) 1.6 % 2.1 % Eosinophils (%) (Auto) 0.3 % 1.6 % Basophils (%) (Auto) 0.2 % 0.1 % Neutrophils # (Auto) 17.5 TH/MM3 17.2 TH/MM3 Lymphocytes # (Auto) 1.1 TH/MM3 1.2 TH/MM3 Monocytes # (Auto) 0.3 TH/MM3 0.4 TH/MM3 Eosinophils # (Auto) 0.1 TH/MM3 0.3 TH/MM3 Basophils # (Auto) 0.0 TH/MM3 0.0 TH/MM3 CBC Comment AUTO DIFF AUTO DIFF AUTO DIFF Differential Total Cells Counted 100 100 100 Neutrophils % (Manual) 86 % 81 % 69 % Band Neutrophils % 5 % 10 % 23 % Lymphocytes % 3 % 7 % 5 % Monocytes % 2 % 1 % 2 % Neutrophils # (Manual) 18.1 TH/MM3 16.1 TH/MM3 17.8 TH/MM3 Myelocytes 4 % Differential Comment FINAL DIFF MANUAL FINAL DIFF MANUAL FINAL DIFF MANUAL Dohle Bodies PRESENT Platelet Estimate NORMAL NORMAL NORMAL Platelet Morphology Comment ENLARGED NORMAL NORMAL Eosinophils % 1 % Metamyelocytes 1 % Toxic Granulation 1+ Laboratory Tests Test 02/04/18 15:15 02/05/18 05:10 02/06/18 05:30 Blood Urea Nitrogen 31 MG/DL 31 MG/DL 38 MG/DL Creatinine 0.71 MG/DL 0.83 MG/DL 0.94 MG/DL Random Glucose 223 MG/DL 235 MG/DL 203 MG/DL Total Protein 6.1 GM/DL Albumin 1.2 GM/DL Calcium Level 8.5 MG/DL 8.9 MG/DL 8.5 MG/DL Alkaline Phosphatase 315 U/L Aspartate Amino Transf (AST/SGOT) 254 U/L Alanine Aminotransferase (ALT/SGPT) 223 U/L Total Bilirubin 0.9 MG/DL Sodium Level 148 MEQ/L 149 MEQ/L 146 MEQ/L Potassium Level 3.5 MEQ/L 4.4 MEQ/L 4.2 MEQ/L Chloride Level 107 MEQ/L 106 MEQ/L 107 MEQ/L Carbon Dioxide Level 38.7 MEQ/L 35.9 MEQ/L 35.8 MEQ/L Anion Gap 2 MEQ/L 7 MEQ/L 3 MEQ/L Estimat Glomerular Filtration Rate 83 ML/MIN 70 ML/MIN 60 ML/MIN Total Creatine Kinase 404 U/L Creatine Kinase MB LESS THAN 0.5 NG/ML Creatine Kinase MB % 0.1 % Troponin I LESS THAN 0.02 NG/ML Phosphorus Level 3.5 MG/DL Magnesium Level 2.5 MG/DL Microbiology Date/Time Source Procedure Growth Status 02/04/18 06:16 Blood Peripheral Aerobic Blood Culture - Preliminary NO GROWTH IN 2 DAYS Resulted 02/04/18 06:16 Blood Peripheral Anaerobic Blood Culture - Preliminary NO GROWTH IN 2 DAYS Resulted Imaging Last Impressions Chest X-Ray 02/06/18 0600 Signed Impressions: Service Date/Time: Tuesday, February 06, 2018 02:53 - CONCLUSION: Diffuse bilateral infiltrates. Bilateral pneumothoraces. Massive subcutaneous emphysema Michael Holloway MD Chest CT 01/30/18 0000 Signed Impressions: Service Date/Time: Tuesday, January 30, 2018 20:07 - CONCLUSION: 1. Dense consolidation throughout the left lingula and left lower lobe. There is more patchy areas of consolidation in the upper lobes bilaterally. This pattern is most suggestive of inflammatory/infectious processes. 2. Mild left pleural effusion. 3. Status post gastric surgery/bypass with a mild hiatal hernia. Michael Gabriel MD Physical Exam CONSTITUTIONAL/GENERAL: Opens eyes when stimulated, on the vent, NAD SKIN: No jaundice, rashes, or lesions. Ecchymoses on upper extremities. Skin temperature appropriate. generalysed edema Massive Sq emphysema HEAD: Atraumatic. Normocephalic. EYES: Pupils equal and round and reactive. Extraocular motions intact. No scleral icterus. No injection or drainage. ENT: No nasal discharge, orally intubated NECK: Supple, nontender. CARDIOVASCULAR: Regular rate and rhythm without murmurs, gallops, or rubs. RESPIRATORY/CHEST: Symmetric, unlabored respirations. Rhonchi b/l. CTx2 on R and CT x 2 on the L GASTROINTESTINAL: Abdomen soft, nondistended. No organomegaly. Mild grimacing during palpation, not guarding. GENITOURINARY: Without palpable bladder distension. Alexandre catheter in place. MUSCULOSKELETAL: Extremities without clubbing, cyanosis, + 3 diffuse edema. . NEUROLOGICAL: sedated, PSYCHIATRIC: unable to assess LINE: no evidence of infection Assessment & Plan Remarks IMPRESSION MRSA PNA Multiple b/l pneumothoraces ? postinfluenza PNA Acute VDRF High grade , sustained MRSA bacteremia GRANT negative Sevrte leukocytosis and bandemia PLAN Continue zyvox Continue vancomycin Fu repeat BC to document clearing Follow C/S Monitor progress chk spuitum clx dw Kenneth Wu Alexandra A. MD Feb 06, 2018 14:28
--- NOTE | 2018-02-06 15:02 | PD.CARD.PN ---
Subjective Subjective Remarks Chest tubes placed for pneumothorax Objective Medications Current Medications Medications (Trade) Dose Ordered Sig/Tyler Route Start Time Stop Time Status Last Admin (NS Flush) 2 ml UNSCH PRN IV FLUSH 01/30/18 19:00 02/05/18 09:03 (NS Flush) 2 ml BID IV FLUSH 01/30/18 21:00 02/06/18 09:30 (Tylenol) 650 mg Q6H PRN PO 01/30/18 19:00 02/06/18 00:11 (Morphine Inj) 2 mg Q2H PRN IV PUSH 01/30/18 19:00 02/05/18 11:41 (Zofran Inj) 4 mg Q6H PRN IV PUSH 01/30/18 19:00 (Restoril) 15 mg HS PRN PO 01/30/18 19:00 (Duoneb Neb) 1 ampule Q2HR NEB PRN INH 01/30/18 19:00 02/06/18 03:42 (Heparin Inj) 5,000 units Q8HR SQ 01/30/18 22:00 02/06/18 05:08 Miscellaneous Information 1 Q361D XX 01/30/18 19:00 01/30/18 22:56 (Chlorhexidine 2% Cloth) Taper DAILY@04 TOP 01/31/18 04:00 01/27/19 03:59 02/06/18 05:12 (Chlorhexidine 2% Cloth) 3 pack UNSCH PRN TOP 01/30/18 19:00 (Chiquis-Colace) 1 tab BID PO 01/30/18 21:00 02/06/18 09:16 (Milk Of Magnesia Liq) 30 ml Q12H PRN PO 01/30/18 19:00 (Senokot) 17.2 mg Q12H PRN PO 01/30/18 19:00 (Dulcolax Supp) 10 mg DAILY PRN RECTAL 01/30/18 19:00 (Lactulose Liq) 30 ml DAILY PRN PO 01/30/18 19:00 (Peridex 0.12% Liq) 15 ml BID@08,20 MT 01/31/18 08:00 02/06/18 09:29 Fentanyl Citrate 250 ml @ 20 mls/hr TITRATE PRN IV 01/30/18 23:45 02/05/18 19:00 Midazolam HCl 100 ml @ 5 mls/hr TITRATE PRN IV 01/30/18 23:45 02/06/18 13:00 Linezolid 300 ml @ 300 mls/hr Q12H IV 02/01/18 01:00 02/06/18 12:32 (D50w (Vial) Inj) 50 ml UNSCH PRN IV PUSH 01/31/18 18:15 (Glucagon Inj) 1 mg UNSCH PRN OTHER 01/31/18 18:15 Amiodarone HCl 450 mg/Sodium Chloride 250 ml @ 33.33 mls/ hr Q7H31M PRN IV 02/01/18 07:15 02/05/18 00:42 (NovoLOG SUPPLEMENTAL SCALE) 1 Q4HR SQ 02/02/18 16:00 02/06/18 12:46 (D50w (Vial) Inj) 25 ml UNSCH PRN IV 02/02/18 15:15 (Glucagon Inj) 1 mg UNSCH PRN IM/SQ 02/02/18 15:15 Pharmacy Profile Note 0 ml @ 0 mls/hr UNSCH OTHER 02/02/18 15:15 (Pepcid) 10 mg BID PO 02/02/18 21:00 02/06/18 09:16 (Trandate Inj) 10 mg Q4H PRN IV PUSH 02/04/18 05:00 (Apresoline Inj) 20 mg Q4H PRN IV PUSH 02/04/18 05:00 02/05/18 11:41 (Aspirin Chew) 81 mg DAILY CHEW 02/06/18 09:00 02/06/18 09:16 (Cardizem) 30 mg Q6HR PO 02/05/18 12:30 02/06/18 12:32 Vancomycin HCl 1500 mg/Sodium Chloride 515 ml @ 250 mls/hr Q18H IV 02/07/18 06:00 Miscellaneous Information SPECIFIC LAB TO BE DRAWN:VANCOMYCIN TROUGH DATE TO... ONCE ONCE .XX 02/09/18 11:45 02/09/18 11:46 Vital Signs / I&O Vital Signs Date Time Temp Pulse Resp B/P (MAP) Pulse Ox O2 Delivery O2 Flow Rate FiO2 02/06/18 12:00 70 02/06/18 12:00 98.4 86 42 140/67 (91) 100 02/06/18 08:01 100 70 02/06/18 08:00 77 02/06/18 08:00 70 02/06/18 08:00 97.9 77 13 163/74 (103) 100 02/06/18 06:00 68 02/06/18 04:00 90 02/06/18 04:00 98.9 74 16 137/68 (91) 98 02/06/18 04:00 74 02/06/18 03:50 98 Ventilator 02/06/18 03:46 98 90 02/06/18 03:00 70 16 116/61 (79) 97 02/06/18 03:00 70 02/06/18 02:00 72 02/06/18 02:00 72 16 115/55 (75) 97 02/06/18 01:15 69 16 110/56 (74) 96 02/06/18 01:15 69 02/06/18 01:00 73 02/06/18 01:00 73 16 138/64 (88) 96 02/06/18 00:33 97 90 02/06/18 00:00 101.0 79 16 122/57 (78) 96 02/06/18 00:00 90 02/06/18 00:00 79 02/05/18 23:00 78 02/05/18 23:00 78 16 113/60 (77) 96 02/05/18 22:00 74 16 113/58 (76) 95 18 22:00 74 18 21:00 79 16 116/59 (78) 96 02/05/18 21:00 79 02/05/18 20:17 95 90 02/05/18 20:00 75 18 20:00 99.5 75 16 116/58 (77) 96 18 20:00 100 18 18:00 75 18 18:00 76 114/61 18 16:20 95 90 02/05/18 16:00 78 02/05/18 16:00 50 02/05/18 16:00 97.9 78 16 119/58 (78) 92 I/O 02/05/18 02/05/18 18 18 18 02/06/18 07:00 15:00 23:00 07:00 15:00 23:00 Intake Total 1266 ml 1447 ml 1781 ml 915 ml Output Total 930 ml 860 ml 660 ml Balance 336 ml 587 ml 1121 ml 915 ml IV Total 550 ml 900 ml 1165 ml 915 ml Tube Feeding 656 ml 487 ml 496 ml Other 60 ml 60 ml 120 ml Output Urine Total 900 ml 800 ml 600 ml Chest Tube Drainage Total 30 ml 60 ml 60 ml # Bowel Movements 0 0 0 Physical Exam GENERAL: Intubated and sedated SKIN: Warm and dry. HEAD: Atraumatic. Normocephalic. EYES: Pupils equal and round. No scleral icterus. No injection or drainage. ENT: No nasal bleeding or discharge. Mucous membranes pink and moist. NECK: Trachea midline. No JVD. CARDIOVASCULAR: Regular rate and rhythm. RESPIRATORY: No accessory muscle use. Decreased breath sounds bilaterally GASTROINTESTINAL: Abdomen soft, non-tender, nondistended. Hepatic and splenic margins not palpable. MUSCULOSKELETAL: Extremities without clubbing, cyanosis, or edema. No obvious deformities. NEUROLOGICAL: Intubated and sedated Laboratory Laboratory Tests Test 02/06/18 05:30 02/06/18 12:20 White Blood Count 19.1 TH/MM3 Red Blood Count 3.32 MIL/MM3 Hemoglobin 9.1 GM/DL Hematocrit 28.4 % Mean Corpuscular Volume 85.4 FL Mean Corpuscular Hemoglobin 27.4 PG Mean Corpuscular Hemoglobin Concent 32.1 % Red Cell Distribution Width 16.4 % Platelet Count 225 TH/MM3 Mean Platelet Volume 9.6 FL Neutrophils (%) (Auto) 90.2 % Lymphocytes (%) (Auto) 6.0 % Monocytes (%) (Auto) 2.1 % Eosinophils (%) (Auto) 1.6 % Basophils (%) (Auto) 0.1 % Neutrophils # (Auto) 17.2 TH/MM3 Lymphocytes # (Auto) 1.2 TH/MM3 Monocytes # (Auto) 0.4 TH/MM3 Eosinophils # (Auto) 0.3 TH/MM3 Basophils # (Auto) 0.0 TH/MM3 CBC Comment AUTO DIFF Differential Total Cells Counted 100 Neutrophils % (Manual) 69 % Band Neutrophils % 23 % Lymphocytes % 5 % Monocytes % 2 % Neutrophils # (Manual) 17.8 TH/MM3 Metamyelocytes 1 % Differential Comment FINAL DIFF MANUAL Toxic Granulation 1+ Platelet Estimate NORMAL Platelet Morphology Comment NORMAL Blood Urea Nitrogen 38 MG/DL Creatinine 0.94 MG/DL Random Glucose 203 MG/DL Calcium Level 8.5 MG/DL Phosphorus Level 3.5 MG/DL Magnesium Level 2.5 MG/DL Sodium Level 146 MEQ/L Potassium Level 4.2 MEQ/L Chloride Level 107 MEQ/L Carbon Dioxide Level 35.8 MEQ/L Anion Gap 3 MEQ/L Estimat Glomerular Filtration Rate 60 ML/MIN Vancomycin Level Trough 21.8 MCG/ML Imaging Last 24 hours Impressions Chest X-Ray 02/06/18 0600 Signed Impressions: Service Date/Time: Tuesday, February 06, 2018 02:53 - CONCLUSION: Diffuse bilateral infiltrates. Bilateral pneumothoraces. Massive subcutaneous emphysema Michael Holloway MD Chest X-Ray 02/06/18 0000 Signed Impressions: Service Date/Time: Tuesday, February 06, 2018 11:46 - CONCLUSION: Bilateral small caliber and larger caliber chest tubes with tiny right apical pneumothorax. Bilateral airspace disease is stable. Right central line in subclavian vein. Everett Ng MD Chest X-Ray 02/06/18 0000 Signed Impressions: Service Date/Time: Tuesday, February 06, 2018 11:07 - CONCLUSION: Interval resolution of left pneumothorax status post 2nd chest tube placement. The interval decrease in the right pneumothorax, now measuring 6 mm. Ilya Harris MD Assessment and Plan Problem List: (1) Bacteremia ICD Codes: R78.81 - Bacteremia (2) Bilateral pneumothoraces ICD Codes: J93.9 - Pneumothorax, unspecified (3) PNA (pneumonia) ICD Codes: J18.9 - Pneumonia, unspecified organism Status: Acute (4) Sepsis ICD Codes: A41.9 - Sepsis, unspecified organism Status: Acute Assessment and Plan 1) Bacteremia/Sepsis GRANT negative for endocarditis 2) Afib with RVR No further episodes Amiodarone drip stopped Cardizem 30 QID Problem Qualifiers (1) PNA (pneumonia): Qualified Codes: J18.9 - Pneumonia, unspecified organism (2) Sepsis: Qualified Codes: A41.9 - Sepsis, unspecified organism Amaury Vázquez DO Feb 06, 2018 15:02
[2018-02-07] VITALS (21 sets, daily range): BP systolic 102–150; BP diastolic 54–70; PULSE 71–98; RESP 16–41; TEMP 98.6–100; O2SAT 94–99
[2018-02-07] MEDS: DILTIAZEM HCL 30 MG TAB PO SCH ×4 (01:17→16:25)
[2018-02-07] MEDS: LINEZOLID 600 MG PREMIX 300 ML IV SCH ×2 (01:18→13:06)
[2018-02-07] MEDS: fentaNYL 2,500 MCG/NS 250 ML IV PRN ×2 (03:15→14:00)
[2018-02-07] MEDS: INSULIN ASPART SUPPLEMENTAL SCALE SQ SCH ×6 (03:15→20:31)
[2018-02-07] MEDS: CHLORHEXIDINE GLUCONATE 2 % 1 PACK (2 CLOTHS) TOP SCH (03:16)
[2018-02-07] MEDS: VANCOMYCIN INJ 1,500 MG in SODIUM CHLORID 0.9% 500 ML INJ 500 ML IV SCH (05:36)
[2018-02-07] MEDS: HEPARIN SODIUM - SQ 10,000 UNITS/ML VIAL SQ SCH ×3 (05:36→20:31)
--- NOTE | 2018-02-07 06:27 | RADRPT ---
EXAM DATE/TIME: 02/07/2018 04:16 [place] COMPARISON: CHEST SINGLE AP, February 06, 2018, 11:46. INDICATIONS : Shortness of breath, possible pulmonary disease. MEDICAL HISTORY : Sepsis. SURGICAL HISTORY : Gastric bypass. ENCOUNTER: Subsequent ACUITY: 1 week PAIN SCORE: Non-responsive. LOCATION: Bilateral chest FINDINGS: Endotracheal tube, nasogastric tube and thoracostomy tubes are stable. Extensive diffuse subcutaneous emphysema is again noted. Diffuse bilateral parenchymal lung opacity is grossly unchanged. I do not clearly see significant pneumothorax visualized cardiac contours are grossly stable. CONCLUSION: Stable chest appearance Michael Holloway MD on February 07, 2018 at 6:24 Board Certified Radiologist. This report was verified electronically.
[2018-02-07 07:17] LABS: AUTOMATED NEUTROPHIL # 20.3 TH/MM3 (1.8-7.7); BASOPHIL # 0.1 TH/MM3 (0-0.2); BASOPHIL % 0.4 % (0.0-2.0); EOSINOPHIL # 0.3 TH/MM3 (0-0.4); EOSINOPHIL % 1.3 % (0.0-4.0); HEMATOCRIT 31.1 % (35.0-46.0); HEMOGLOBIN 9.9 GM/DL (11.6-15.3); LYMPH % 6.6 % (9.0-44.0); LYMPHOCYTE # 1.5 TH/MM3 (1.0-4.8); MEAN CORPUSCULAR HGB CONC 31.8 % (32.0-36.0); MEAN PLATELET VOLUME 9.9 FL (7.0-11.0); MONO % 2.2 % (0.0-8.0); MONOCYTE # 0.5 TH/MM3 (0-0.9); NEUT % 89.5 % (16.0-70.0); PLATELET COUNT 267 TH/MM3 (150-450); RED BLOOD COUNT 3.66 MIL/MM3 (4.00-5.30); RED CELL DISTRIBUTION WIDTH 16.2 % (11.6-17.2); WHITE BLOOD COUNT 22.7 TH/MM3 (4.0-11.0)
[2018-02-07 07:27] LABS: BICARBONATE 30.8 MEQ/L (21.0-32.0); CALCIUM 8.4 MG/DL (8.5-10.1); MAGNESIUM 2.6 MG/DL (1.5-2.5)
[2018-02-07] MEDS: CHLORHEXIDINE 0.12% (ORAL KIT) 15 ML CUP MT SCH ×2 (08:00→20:29)
[2018-02-07 08:47] LABS: BANDS 7 % (0-6); LYMPHOCYTES 7 % (9-44); METAMYELOCYTES 2 % (0-1); MONOCYTES 2 % (0-8); MYELOCYTES 1 % (0-0); NEUTROPHIL # MANUAL DIFF 20.4 TH/MM3 (1.8-7.7); POLYS (SEG NEUTROPHILS) 80 % (16-70); TOXIC GRANULATION 1+ (NORMAL); TOXIC VACUOLATION PRESENT (NONE SEEN)
[2018-02-07] MEDS: SODIUM CHLORIDE 0.9% FLUSH 10 ML FLUSH IV FLUSH SCH ×2 (09:00→20:29)
[2018-02-07] MEDS: FAMOTIDINE 20 MG TAB PO SCH ×2 (09:24→20:28)
[2018-02-07] MEDS: ASPIRIN 81 MG CHEW TAB CHEW SCH (09:24)
[2018-02-07] MEDS: DOCUSATE SODIUM 50 MG/SENNA 8.6 MG TAB PO SCH ×2 (09:25→20:28)
--- NOTE | 2018-02-07 09:37 | HHI.CCPN ---
Subjective Remarks/Hospital Course 01/30: 62-year-old female presents for evaluation of increasing shortness of breath and chest pain. She reports 1 week of coughing 3 days of pain in her left chest which radiates to her back, which prompted the visit to the emergency room yesterday. She rates her pain a 6 out of 10. She reports fevers , chills, fatigue, mild nausea. She denies any abdominal pain, vomiting. Patient denies any significant past medical history. Symptom onset was gradual , symptom severity is severe, there are no alleviating factors. Patient states that she has been taking the azithromycin antibiotics that were prescribed to her. She denies any current or historical tobacco use. 01/31: Intubated at 1 AM this morning and placed on mechanical ventilation due to worsening respiratory distress. Currently sedated, orally intubated on mechanical ventilation. 02/01: Remains sedated, orally intubated on mechanical ventilation. Went into A. fib with RVR this morning. Loaded with amiodarone, started on amiodarone drip and given digoxin 0.5 mg IV 02/02: Remains sedated, orally intubated on mechanical ventilation. Right sided pigtail catheter in place with 1+ air leak. Converted to sinus rhythm overnight. Remains on amiodarone gtt. 02/03: Remains sedated, orally intubated on mechanical ventilation. 1+ air leak and right sided pigtail catheter. Tolerating tube feeds. Remains on amiodarone gtt. 02/04: Noted to have pneumothorax on the left side this morning on routine chest x -ray which appeared to be under tension. Right sided pigtail catheter placed by Dr. Peña with reexpansion of lung. Patient remains sedated, orally intubated on mechanical ventilation. 1+ airleak and bilateral chest tubes noted. 02/05: Afebrile. Persistent leukocytosis, bilateral chest tubes continue on wall suction. Chest x-ray pending this a.m.. Patient scheduled for GRANT today, discussed with Dr. Vázquez. Patient continues on amiodarone infusion with sinus rhythm. Postprocedure GRANT,this afternoon, the patient became extremely agitated, noted significant increase in subcu emphysema, peak pressures 50's, O2 saturation significantly decreased to 78-80 %. Stat chest x-ray performed patient was noted to have a significant right pneumothorax. 20 Israeli right chest tube placement emergently, with increase in O2 saturation decrease in peak inspiratory pressures. 02/06: Afebrile. Patient with persistent bilateral pneumothoraces, with diffuse bilateral infiltrates and massive SQ emphysema. O2 requirement significantly increased during the night, PIP 38-44. 28 F chest tubes were placed bilaterally with resolution of left pneumothorax and minimization of right pneumothorax, and improved oxygenation. 02/07: TMax 100.1 Chest tubes remain on suction. Resolution of pneumothoraces, continued extensive SQ emphysema. Persistent leukocytosis noted. FiO2 weaned to 50%. Objective Vital Signs Date Time Temp Pulse Resp B/P (MAP) Pulse Ox O2 Delivery O2 Flow Rate FiO2 02/07/18 08:40 95 55 02/07/18 06:00 75 02/07/18 04:00 99.8 16 150/70 (96) 02/06/18 03:50 Ventilator Intake and Output 02/07/18 02/07/18 02/08/18 08:00 16:00 00:00 Intake Total 682 ml Output Total 943 ml Balance -261 ml Result Diagram: 02/07/18 0650 02/07/18 0650 Imaging Last Impressions Chest X-Ray 02/06/18 0600 Signed Impressions: Service Date/Time: Tuesday, February 06, 2018 02:53 - CONCLUSION: Diffuse bilateral infiltrates. Bilateral pneumothoraces. Massive subcutaneous emphysema Michael Holloway MD Chest CT 01/30/18 0000 Signed Impressions: Service Date/Time: Tuesday, January 30, 2018 20:07 - CONCLUSION: 1. Dense consolidation throughout the left lingula and left lower lobe. There is more patchy areas of consolidation in the upper lobes bilaterally. This pattern is most suggestive of inflammatory/infectious processes. 2. Mild left pleural effusion. 3. Status post gastric surgery/bypass with a mild hiatal hernia. Michael Gabriel MD Last Impressions Chest X-Ray 02/04/18 1700 Signed Impressions: Service Date/Time: Sunday, February 04, 2018 17:03 - CONCLUSION: Persistent 1.5 cm right pneumothorax with chest drainage catheter in place stop extensive diffuse bilateral subcutaneous emphysema, stable. Ilya Harris MD Chest CT 01/30/18 0000 Signed Impressions: Service Date/Time: Tuesday, January 30, 2018 20:07 - CONCLUSION: 1. Dense consolidation throughout the left lingula and left lower lobe. There is more patchy areas of consolidation in the upper lobes bilaterally. This pattern is most suggestive of inflammatory/infectious processes. 2. Mild left pleural effusion. 3. Status post gastric surgery/bypass with a mild hiatal hernia. Michael Gabriel MD Last 24 hours Impressions Chest X-Ray 01/30/18 1556 Signed Impressions: Service Date/Time: Tuesday, January 30, 2018 16:01 - CONCLUSION: 1. Bilateral airspace disease with significant consolidation in the left base. 2. Elevated left hemidiaphragm versus eventration. Ramon Blunt MD Chest CT 01/30/18 0000 Signed Impressions: Service Date/Time: Tuesday, January 30, 2018 20:07 - CONCLUSION: 1. Dense consolidation throughout the left lingula and left lower lobe. There is more patchy areas of consolidation in the upper lobes bilaterally. This pattern is most suggestive of inflammatory/infectious processes. 2. Mild left pleural effusion. 3. Status post gastric surgery/bypass with a mild hiatal hernia. Michael Gabriel MD Procedures 02/05- Right emergent 20 F chest tube placement 02/06: Left 28 Israeli chest tube placement, right chest tube replacement 28 Israeli Objective Remarks HEENT/ Neuro: Sedated, orally intubated, Pallor present, no icterus, tongue/ mucosa moist significant SQ emphysema Neck: No JVD Chest/Pulm: on mech vent, air entry decreased bilaterally at bases, scattered rhonchi bilaterally. Bilateral pigtail catheters insitu., and 28F chest tubes bilaterally to -40cm H20 CVS: S1-S2 regular, no murmur GI/abdomen: soft, nontender, bowel sounds hypoactive Neuro: RASS -2, currently on fentanyl and Versed infusions. Patient moving extremities 4 Extremities: warm bilaterally, 1+bilateral peripheral edema upper and lower extremities A/P Assessment and Plan Acute Respiratory failure MRSA pneumonia MRSA bacteremia Sepsis Persistent leukocytosis COPD Persistent bilateral pneumothorax Post Influenza pneumonia? - Antibiotics per ID. On Zyvox. MRSA bacteremia persists from blood culture on 02/01. Dr. Singleton added IV vancomycin and consulted cardiology for GRANT to evaluate heart valves. -Repeat blood cultures per ID. - Bal culture/blood cultures growing MRSA -Legionella and strep pneumo antigen negative -Consulted ID for sepsis/pneumonia - Dr. Areli following. - DuoNeb scheduled and when necessary - Titrated off IV steroids by 02/03 -Bilateral pigtail catheters in place with 1+ air leak, continue on suction -40 on right, -20 on left -02/06; chest x-ray diffuse bilateral infiltrates massive subcu emphysema bilateral pneumothoraces. Placement of 28 Israeli left chest tube, repeat placement of 20 Israeli chest tube with 28 Israeli chest tube -Possible recurrent pneumothoraces secondary to post influenza viral PNA -02/07 CXR significant subcu emphysema, no pneumothorax, chest tubes in place Acute kidney injury-resolved Dehydration-resolved - Maintain kendrick - Strict I's and O's - Monitor trend of creatinine and electrolytes. Improvement in creatinine A. fib with RVR (converted to RSR 02/02) -02/05 amiodarone infusion discontinued. -Digoxin 0.5 mg IV x 1 on 02/01. - 02/05 GRANT -no valvular vegetations. EF 55-60%, trace MVR, mild TVR, PAP 35 Hyperglycemia Increase sliding scale insulin dosing Glucose monitoring per ICU protocol DVT GI prophylaxis - Teds SCDs - Subcutaneous heparin - Pepcid Lines: Right subclavian central line inserted 02/01. Peripheral IVs 2 Critical Care: my billing statement This patient remains critically ill with one or more organ systems which are or may become a threat to life. I have spent in excess of 30 minutes discontinuously in the care and management of this patient. This time is exclusive of procedures, and includes, but is not limited to, evaluation of the patient, review of the medical record, discussions with family, consultants, nursing staff, or respiratory therapy, and documentation in the medical record. Gaston/W [employer] ENGINE[employer] (Tad). Physician Dilcia Zhong MD Feb 07, 2018 09:37
--- NOTE | 2018-02-07 12:46 | PD.CARD.PN ---
Subjective Subjective Remarks Hemodynamically stable No further Afib Objective Medications Current Medications Medications (Trade) Dose Ordered Sig/Tyler Route Start Time Stop Time Status Last Admin (NS Flush) 2 ml UNSCH PRN IV FLUSH 01/30/18 19:00 02/05/18 09:03 (NS Flush) 2 ml BID IV FLUSH 01/30/18 21:00 02/07/18 09:00 (Tylenol) 650 mg Q6H PRN PO 01/30/18 19:00 02/06/18 00:11 (Morphine Inj) 2 mg Q2H PRN IV PUSH 01/30/18 19:00 02/05/18 11:41 (Zofran Inj) 4 mg Q6H PRN IV PUSH 01/30/18 19:00 (Restoril) 15 mg HS PRN PO 01/30/18 19:00 Future Hold (Duoneb Neb) 1 ampule Q2HR NEB PRN INH 01/30/18 19:00 02/06/18 03:42 (Heparin Inj) 5,000 units Q8HR SQ 01/30/18 22:00 02/07/18 05:36 Miscellaneous Information 1 Q361D XX 01/30/18 19:00 01/30/18 22:56 (Chlorhexidine 2% Cloth) Taper DAILY@04 TOP 01/31/18 04:00 01/27/19 03:59 02/06/18 05:12 (Chlorhexidine 2% Cloth) 3 pack UNSCH PRN TOP 01/30/18 19:00 (Chiquis-Colace) 1 tab BID PO 01/30/18 21:00 02/07/18 09:25 (Milk Of Magnesia Liq) 30 ml Q12H PRN PO 01/30/18 19:00 (Senokot) 17.2 mg Q12H PRN PO 01/30/18 19:00 (Dulcolax Supp) 10 mg DAILY PRN RECTAL 01/30/18 19:00 02/07/18 05:30 (Lactulose Liq) 30 ml DAILY PRN PO 01/30/18 19:00 (Peridex 0.12% Liq) 15 ml BID@08,20 MT 01/31/18 08:00 02/07/18 08:00 Fentanyl Citrate 250 ml @ 20 mls/hr TITRATE PRN IV 01/30/18 23:45 02/07/18 03:15 Midazolam HCl 100 ml @ 5 mls/hr TITRATE PRN IV 01/30/18 23:45 02/07/18 00:00 Linezolid 300 ml @ 300 mls/hr Q12H IV 02/01/18 01:00 02/07/18 01:18 (D50w (Vial) Inj) 50 ml UNSCH PRN IV PUSH 01/31/18 18:15 (Glucagon Inj) 1 mg UNSCH PRN OTHER 01/31/18 18:15 (D50w (Vial) Inj) 25 ml UNSCH PRN IV 02/02/18 15:15 (Glucagon Inj) 1 mg UNSCH PRN IM/SQ 02/02/18 15:15 Pharmacy Profile Note 0 ml @ 0 mls/hr UNSCH OTHER 02/02/18 15:15 (Pepcid) 10 mg BID PO 02/02/18 21:00 02/07/18 09:24 (Trandate Inj) 10 mg Q4H PRN IV PUSH 02/04/18 05:00 (Apresoline Inj) 20 mg Q4H PRN IV PUSH 02/04/18 05:00 02/05/18 11:41 (Aspirin Chew) 81 mg DAILY CHEW 02/06/18 09:00 02/07/18 09:24 (Cardizem) 30 mg Q6HR PO 02/05/18 12:30 02/07/18 05:36 Vancomycin HCl 1500 mg/Sodium Chloride 515 ml @ 250 mls/hr Q18H IV 02/07/18 06:00 02/07/18 05:36 Miscellaneous Information SPECIFIC LAB TO BE DRAWN:VANCOMYCIN TROUGH DATE TO... ONCE ONCE .XX 02/09/18 11:45 02/09/18 11:46 (NovoLOG SUPPLEMENTAL SCALE) 1 ACHS SLIDING SCALE SQ 02/07/18 12:00 Vital Signs / I&O Vital Signs Date Time Temp Pulse Resp B/P (MAP) Pulse Ox O2 Delivery O2 Flow Rate FiO2 02/07/18 12:00 55 02/07/18 12:00 98 02/07/18 10:00 71 02/07/18 08:40 95 55 02/07/18 08:00 74 02/07/18 08:00 99.9 75 16 132/61 (84) 95 4/5/18 08:00 55 02/07/18 06:00 75 02/07/18 04:00 99.8 75 16 150/70 (96) 99 02/07/18 04:00 55 02/07/18 04:00 75 02/07/18 03:33 99 55 02/07/18 02:00 76 02/07/18 00:35 98 55 02/07/18 00:00 100.0 79 16 128/62 (84) 97 02/07/18 00:00 78 02/07/18 00:00 55 02/06/18 22:00 77 02/06/18 20:29 100 55 02/06/18 20:00 55 02/06/18 20:00 76 02/06/18 20:00 100.2 75 16 139/65 (89) 98 02/06/18 18:00 79 02/06/18 16:00 99.8 75 16 135/63 (87) 97 02/06/18 16:00 70 02/06/18 16:00 75 02/06/18 15:30 75 16 131/63 (85) 98 02/06/18 15:04 98 55 02/06/18 15:00 75 16 128/64 (85) 98 02/06/18 14:30 76 16 128/61 (83) 100 02/06/18 14:00 75 02/06/18 14:00 75 16 138/65 (89) 100 02/06/18 13:30 75 16 136/64 (88) 100 02/06/18 13:00 75 16 130/65 (86) 99 I/O 02/06/18 02/06/18 02/06/18 02/07/18 02/07/18 02/07/18 07:00 15:00 23:00 07:00 15:00 23:00 Intake Total 1781 ml 915 ml 834 ml 682 ml Output Total 660 ml 984 ml 943 ml Balance 1121 ml 915 ml -150 ml -261 ml IV Total 1165 ml 915 ml 350 ml Tube Feeding 496 ml 484 ml 482 ml Other 120 ml 200 ml Output Urine Total 600 ml 950 ml 900 ml Chest Tube Drainage Total 60 ml 34 ml 43 ml # Bowel Movements 0 0 0 Physical Exam GENERAL: Intubated and sedated SKIN: Warm and dry. HEAD: Atraumatic. Normocephalic. EYES: Pupils equal and round. No scleral icterus. No injection or drainage. ENT: No nasal bleeding or discharge. Mucous membranes pink and moist. NECK: Trachea midline. No JVD. CARDIOVASCULAR: Regular rate and rhythm. RESPIRATORY: No accessory muscle use. Decreased breath sounds bilaterally GASTROINTESTINAL: Abdomen soft, non-tender, nondistended. Hepatic and splenic margins not palpable. MUSCULOSKELETAL: Extremities without clubbing, cyanosis, or edema. No obvious deformities. NEUROLOGICAL: Intubated and sedated Laboratory Laboratory Tests Test 02/07/18 06:50 White Blood Count 22.7 TH/MM3 Red Blood Count 3.66 MIL/MM3 Hemoglobin 9.9 GM/DL Hematocrit 31.1 % Mean Corpuscular Volume 85.0 FL Mean Corpuscular Hemoglobin 27.0 PG Mean Corpuscular Hemoglobin Concent 31.8 % Red Cell Distribution Width 16.2 % Platelet Count 267 TH/MM3 Mean Platelet Volume 9.9 FL Neutrophils (%) (Auto) 89.5 % Lymphocytes (%) (Auto) 6.6 % Monocytes (%) (Auto) 2.2 % Eosinophils (%) (Auto) 1.3 % Basophils (%) (Auto) 0.4 % Neutrophils # (Auto) 20.3 TH/MM3 Lymphocytes # (Auto) 1.5 TH/MM3 Monocytes # (Auto) 0.5 TH/MM3 Eosinophils # (Auto) 0.3 TH/MM3 Basophils # (Auto) 0.1 TH/MM3 CBC Comment AUTO DIFF Differential Total Cells Counted 100 Neutrophils % (Manual) 80 % Band Neutrophils % 7 % Lymphocytes % 7 % Monocytes % 2 % Eosinophils % 1 % Neutrophils # (Manual) 20.4 TH/MM3 Metamyelocytes 2 % Myelocytes 1 % Differential Comment FINAL DIFF MANUAL Toxic Granulation 1+ Toxic Vacuolation PRESENT Platelet Estimate NORMAL Platelet Morphology Comment ENLARGED Blood Urea Nitrogen 32 MG/DL Creatinine 1.00 MG/DL Random Glucose 206 MG/DL Calcium Level 8.4 MG/DL Magnesium Level 2.6 MG/DL Sodium Level 145 MEQ/L Potassium Level 4.0 MEQ/L Chloride Level 107 MEQ/L Carbon Dioxide Level 30.8 MEQ/L Anion Gap 7 MEQ/L Estimat Glomerular Filtration Rate 56 ML/MIN Imaging Last 24 hours Impressions Chest X-Ray 02/07/18 0600 Signed Impressions: Service Date/Time: February 04:16 - CONCLUSION: Stable chest appearance Michael Holloway MD Assessment and Plan Problem List: (1) Bacteremia ICD Codes: R78.81 - Bacteremia (2) Bilateral pneumothoraces ICD Codes: J93.9 - Pneumothorax, unspecified (3) PNA (pneumonia) ICD Codes: J18.9 - Pneumonia, unspecified organism Status: Acute (4) Sepsis ICD Codes: A41.9 - Sepsis, unspecified organism Status: Acute Assessment and Plan 1) Bacteremia/Sepsis GRANT negative for endocarditis 2) Afib with RVR No further episodes Amiodarone drip stopped Cardizem 30 QID CHADSVASc = 1 ASA 81mg daily 3) Bilateral pneumothoraces s/p chest tubes Problem Qualifiers (1) PNA (pneumonia): Qualified Codes: J18.9 - Pneumonia, unspecified organism (2) Sepsis: Qualified Codes: A41.9 - Sepsis, unspecified organism Amaury Vázquez DO Feb 07, 2018 12:46
[2018-02-07] MEDS: MIDAZOLAM 100 MG/NS 100 ML DRIP Premix IV PRN ×2 (13:06)
[2018-02-07] MEDS ORDERED: PHARMACY INFORMATION XX PRN (16:30)
[2018-02-07] MEDS ORDERED: ASP: ID consult, note reason in consult order PRN (16:30)
[2018-02-07] MEDS ORDERED: PROPOFOL 500 MG/50 ML INJ 50 ML ONE (16:50)
--- NOTE | 2018-02-07 17:32 | RADRPT ---
EXAM DATE/TIME: 02/07/2018 16:58 [facility] COMPARISON: CHEST SINGLE AP, February 06, 2018, 2:53. CHEST SINGLE AP, February 07, 2018, 4:16. INDICATIONS : Respiratory distress. MEDICAL HISTORY : Sepsis. SURGICAL HISTORY : Gastric bypass. ENCOUNTER: Subsequent ACUITY: 1 week PAIN SCORE: Non-responsive. LOCATION: Bilateral chest FINDINGS: The examination demonstrates extensive subcutaneous emphysema. There is air diffusely throughout the soft tissues of the chest and upper abdomen. There are [address] on the right. There is both a large bore and small bore chest tube. There are [address] on the left as well. I do not see a definite pneumothorax though evaluation is limited due to subcutaneous air. The endotracheal tube is in satisfactory position. There is a central venous catheter which enters via the right subclavian the catheter tip is at the j unction of the subclavian and SVC. The nasogastric tubes in satisfactory position. The heart is normal in size. CONCLUSION: 1. There is extensive subcutaneous emphysema throughout the neck, chest and upper abdomen. 2. The chest tubes on the right are in good position. 3. There are [address] on the left as well. 4. No pneumothorax is seen. Teo Bo MD on February 07, 2018 at 17:27 Board Certified Radiologist. This report was verified electronically.
--- NOTE | 2018-02-07 17:42 | HHI.PR ---
Addendum to Inpatient Note Additional Information sputum clx + for GNB will add meropenem will fu clx Carlene Singleton MD Feb 07, 2018 17:42
[2018-02-07] MEDS: RESP: ALBUTEROL 2.5 MG/IPRATROPIUM 0.5 MG NEB (PRN) INH (20:17)
[2018-02-07] MEDS: PROPOFOL 1000 MG/100 ML IV PRN (20:28)
[2018-02-07] MEDS: MEROPENEM INJ 1,000 MG in SODIUM CHLORIDE 0.9% INJ 100 ML IV SCH (20:29)
--- NOTE | 2018-02-07 21:19 | HHI.HCPN ---
Reason for visit a. To assist with evaluation and management of symptoms including: dyspnea; encephalopathy, pain b. To assist medical decision maker(s) with: better understanding of current medical conditions; weighing benefits/burdens of medical treatment options; making medical treatment decisions. . Subjective/Interval History No significant change overnight. Patient remains intubated, mechanically ventilated, sedated, and minimally responsive in a medical ICU bed. Chest tubes remain in place. Chest x-ray today shows no pneumothoraces. Sputum culture from 02/06/18 now growing gram-negative jeremie. White blood count remains quite elevated at 22.7 . Family/friend interactions No family at bedside. Family has been wondering if extra corporeal membrane oxygenation might help their mother. . Advance Directives Living Will: Never completed Health Care Surrogate: Never completed Durable Power of Cadd Manager: Never completed Advance Directive Specifics Date completed: Patient has never completed an advanced directive. . Health Care Surrogate(s): There is no written designation of healthcare surrogate. . Documented care wishes: There is no written documentation of healthcare goals/preferences. . Objective Vital Signs Date Time Temp Pulse Resp B/P (MAP) Pulse Ox O2 Delivery O2 Flow Rate FiO2 02/07/18 18:00 75 02/07/18 17:29 94 55 02/07/18 16:00 55 02/07/18 16:00 98.6 78 24 130/65 (86) 94 02/07/18 16:00 81 02/07/18 14:00 82 02/07/18 12:47 98 55 02/07/18 12:00 55 02/07/18 12:00 98.9 72 41 132/63 (86) 95 02/07/18 12:00 98 02/07/18 10:00 71 02/07/18 08:40 95 55 02/07/18 08:00 74 02/07/18 08:00 99.9 75 16 132/61 (84) 95 02/07/18 08:00 55 02/07/18 06:00 75 02/07/18 04:00 99.8 75 16 150/70 (96) 99 02/07/18 04:00 55 02/07/18 04:00 75 02/07/18 03:33 99 55 02/07/18 02:00 76 02/07/18 00:35 98 55 02/07/18 00:00 100.0 79 16 128/62 (84) 97 02/07/18 00:00 78 02/07/18 00:00 55 02/06/18 22:00 77 . Physical Exam CONSTITUTIONAL/GENERAL: This is an obese patient, minimally responsive, sedated , in the medical intensive care unit bed. No apparent distress. Significant subcutaneous emphysema is present. TUBES/LINES/DRAINS: Orotracheal tube; orogastric tube; right subclavian central line; bilateral chest tubes; peripheral IV; soft wrist restraints; sequential compressive devices. SKIN: No jaundice, rashes, or lesions. Ecchymoses on upper extremities. No wounds seen anteriorly. Skin temperature appropriate. Not diaphoretic. EYES: Pupils equal and round. Unable to evaluate extraocular movements. Lids quite swollen from SQ emphysema left worse than right . No scleral icterus. No injection or drainage. Fundi not examined. ENT: Unable to evaluate hearing. Nose without bleeding or purulent drainage. Throat without visible erythema, exudates, masses, or lesions though difficult to assess adequately with intubations. NECK: Neck somewhat difficult to examine due to obesity and SQ emphysema. . Trachea midline. CARDIOVASCULAR: Regular rate/rhythm without murmurs, gallops, or rubs.Unable to assess JVD. RESPIRATORY/CHEST: Bilateral chest tubes. Symmetric respirations on vent. Decreased air movement at bases. No wheezing heard today. GASTROINTESTINAL: Abdomen obese, soft, non-tender, nondistended. No hepato- splenomegaly, or palpable masses. Bowel sounds hypoactive GENITOURINARY: Without palpable bladder distension. Alexandre catheter in place. MUSCULOSKELETAL: Extremities without clubbing, cyanosis. Widespread edema vs SQ emphysema (probably the latter). No mottling . LYMPHATICS: Not examined. NEUROLOGICAL: Sedated. No spontaneous movements seen. Will withdraw to noxious stimuli. PSYCHIATRIC: Unable to assess due to level of responsiveness. . Diagnostic Tests Laboratory Laboratory Tests Test 02/05/18 05:10 02/05/18 10:44 02/06/18 05:30 02/06/18 12:20 Blood Urea Nitrogen 31 MG/DL (7-18) 38 MG/DL (7-18) Creatinine 0.83 MG/DL (0.50-1.00) 0.94 MG/DL (0.50-1.00) Random Glucose 235 MG/DL (74-106) 203 MG/DL (74-106) Calcium Level 8.9 MG/DL (8.5-10.1) 8.5 MG/DL (8.5-10.1) Sodium Level 149 MEQ/L (136-145) 146 MEQ/L (136-145) Potassium Level 4.4 MEQ/L (3.5-5.1) 4.2 MEQ/L (3.5-5.1) Chloride Level 106 MEQ/L (98-107) 107 MEQ/L (98-107) Carbon Dioxide Level 35.9 MEQ/L (21.0-32.0) 35.8 MEQ/L (21.0-32.0) Anion Gap 7 MEQ/L (5-15) 3 MEQ/L (5-15) Estimat Glomerular Filtration Rate 70 ML/MIN (>89) 60 ML/MIN (>89) Random Vancomycin Level 8.0 COMMENT White Blood Count 17.7 TH/MM3 (4.0-11.0) 19.1 TH/MM3 (4.0-11.0) Red Blood Count 3.63 MIL/MM3 (4.00-5.30) 3.32 MIL/MM3 (4.00-5.30) Hemoglobin 9.8 GM/DL (11.6-15.3) 9.1 GM/DL (11.6-15.3) Hematocrit 31.2 % (35.0-46.0) 28.4 % (35.0-46.0) Mean Corpuscular Volume 85.8 FL (80.0-100.0) 85.4 FL (80.0-100.0) Mean Corpuscular Hemoglobin 26.9 PG (27.0-34.0) 27.4 PG (27.0-34.0) Mean Corpuscular Hemoglobin Concent 31.4 % (32.0-36.0) 32.1 % (32.0-36.0) Red Cell Distribution Width 16.8 % (11.6-17.2) 16.4 % (11.6-17.2) Platelet Count 215 TH/MM3 (150-450) 225 TH/MM3 (150-450) Mean Platelet Volume 8.8 FL (7.0-11.0) 9.6 FL (7.0-11.0) CBC Comment AUTO DIFF AUTO DIFF Differential Total Cells Counted 100 100 Neutrophils % (Manual) 81 % (16-70) 69 % (16-70) Band Neutrophils % 10 % (0-6) 23 % (0-6) Lymphocytes % 7 % (9-44) 5 % (9-44) Monocytes % 1 % (0-8) 2 % (0-8) Eosinophils % 1 % (0-4) Neutrophils # (Manual) 16.1 TH/MM3 (1.8-7.7) 17.8 TH/MM3 (1.8-7.7) Differential Comment FINAL DIFF MANUAL FINAL DIFF MANUAL Platelet Estimate NORMAL (NORMAL) NORMAL (NORMAL) Platelet Morphology Comment NORMAL (NORMAL) NORMAL (NORMAL) Neutrophils (%) (Auto) 90.2 % (16.0-70.0) Lymphocytes (%) (Auto) 6.0 % (9.0-44.0) Monocytes (%) (Auto) 2.1 % (0.0-8.0) Eosinophils (%) (Auto) 1.6 % (0.0-4.0) Basophils (%) (Auto) 0.1 % (0.0-2.0) Neutrophils # (Auto) 17.2 TH/MM3 (1.8-7.7) Lymphocytes # (Auto) 1.2 TH/MM3 (1.0-4.8) Monocytes # (Auto) 0.4 TH/MM3 (0-0.9) Eosinophils # (Auto) 0.3 TH/MM3 (0-0.4) Basophils # (Auto) 0.0 TH/MM3 (0-0.2) Metamyelocytes 1 % (0-1) Toxic Granulation 1+ (NORMAL) Phosphorus Level 3.5 MG/DL (2.5-4.9) Magnesium Level 2.5 MG/DL (1.5-2.5) Vancomycin Level Trough 21.8 MCG/ML (5.0-10.0) Test 02/07/18 06:50 White Blood Count 22.7 TH/MM3 (4.0-11.0) Red Blood Count 3.66 MIL/MM3 (4.00-5.30) Hemoglobin 9.9 GM/DL (11.6-15.3) Hematocrit 31.1 % (35.0-46.0) Mean Corpuscular Volume 85.0 FL (80.0-100.0) Mean Corpuscular Hemoglobin 27.0 PG (27.0-34.0) Mean Corpuscular Hemoglobin Concent 31.8 % (32.0-36.0) Red Cell Distribution Width 16.2 % (11.6-17.2) Platelet Count 267 TH/MM3 (150-450) Mean Platelet Volume 9.9 FL (7.0-11.0) Neutrophils (%) (Auto) 89.5 % (16.0-70.0) Lymphocytes (%) (Auto) 6.6 % (9.0-44.0) Monocytes (%) (Auto) 2.2 % (0.0-8.0) Eosinophils (%) (Auto) 1.3 % (0.0-4.0) Basophils (%) (Auto) 0.4 % (0.0-2.0) Neutrophils # (Auto) 20.3 TH/MM3 (1.8-7.7) Lymphocytes # (Auto) 1.5 TH/MM3 (1.0-4.8) Monocytes # (Auto) 0.5 TH/MM3 (0-0.9) Eosinophils # (Auto) 0.3 TH/MM3 (0-0.4) Basophils # (Auto) 0.1 TH/MM3 (0-0.2) CBC Comment AUTO DIFF Differential Total Cells Counted 100 Neutrophils % (Manual) 80 % (16-70) Band Neutrophils % 7 % (0-6) Lymphocytes % 7 % (9-44) Monocytes % 2 % (0-8) Eosinophils % 1 % (0-4) Neutrophils # (Manual) 20.4 TH/MM3 (1.8-7.7) Metamyelocytes 2 % (0-1) Myelocytes 1 % (0-0) Differential Comment FINAL DIFF MANUAL Toxic Granulation 1+ (NORMAL) Toxic Vacuolation PRESENT (NONE SEEN) Platelet Estimate NORMAL (NORMAL) Platelet Morphology Comment ENLARGED (NORMAL) Blood Urea Nitrogen 32 MG/DL (7-18) Creatinine 1.00 MG/DL (0.50-1.00) Random Glucose 206 MG/DL (74-106) Calcium Level 8.4 MG/DL (8.5-10.1) Magnesium Level 2.6 MG/DL (1.5-2.5) Sodium Level 145 MEQ/L (136-145) Potassium Level 4.0 MEQ/L (3.5-5.1) Chloride Level 107 MEQ/L (98-107) Carbon Dioxide Level 30.8 MEQ/L (21.0-32.0) Anion Gap 7 MEQ/L (5-15) Estimat Glomerular Filtration Rate 56 ML/MIN (>89) . Result Diagram: 02/07/18 0650 02/07/18 0650 Microbiology Microbiology Date/Time Source Procedure Growth Status 02/06/18 15:00 Sputum Endotracheal Gram Stain - Final Resulted 02/06/18 15:00 Sputum Culture - Preliminary Gram Negative Jeremie Resulted . Imaging Last Impressions Chest X-Ray 02/07/18 0600 Signed Impressions: Service Date/Time: February 04:16 - CONCLUSION: Stable chest appearance Michael Holloway MD Chest CT 01/30/18 0000 Signed Impressions: Service Date/Time: Tuesday, January 30, 2018 20:07 - CONCLUSION: 1. Dense consolidation throughout the left lingula and left lower lobe. There is more patchy areas of consolidation in the upper lobes bilaterally. This pattern is most suggestive of inflammatory/infectious processes. 2. Mild left pleural effusion. 3. Status post gastric surgery/bypass with a mild hiatal hernia. Michael Gabriel MD . Procedures * Intubation/mechanical ventilation right subclavian * Central line placement * Bilateral chest tube placement * Transesophageal echo * . Assessment and Plan Disease Oriented Problem List: (1) PNA (pneumonia) Comment: MRSA (2) Sepsis Comment: MRSA (3) Anemia (4) Hypoalbuminemia (5) Bilateral pneumothoraces Comment: Recurrent and multiple pneumothoraces . (6) ARF (acute renal failure) Comment: REsolving Symptom Scale: (1) Pain 0-10 Scale: Unable to quantify Comment: No known prehospitalization pain syndromes. Current sources of discomfort might include orotracheal and orogastric intubations; vascular access lines; restraints; Alexandre catheter; chest tubes; prolonged bedbound status. (2) Dyspnea 0-10 Scale: Unable to quantify Comment: Patient with underlying pneumonia and bilateral pneumothoraces. Dyspnea currently managed with ventilatory support. (3) Encephalopathy 0-10 Scale: Unable to quantify Pertinent Non-Medical Issues Psychosocial: Has a male partner . she normally lives within a manufactured home. He is a smoker. Her 2 daughters are now down from [place] to help. Spiritual: Patient is [employer]. Parking Inspector visits would be appreciated. Legal: There are no advance directives. Without written designation of a healthcare surrogate, proxy decision making would fall to both adult daughters. Ethical issues impacting care: Patient is currently incapacitated to make her own medical decisions. It is unclear if/when she will become capacitated to do so. . Important Contacts Alona Caballero (daughter and co-health care proxy) [phone] Zenobia Clay (daughter and co-health care proxy) [phone] Brett Mackay (boyfriend -- NO DECISION MAKING RIGHTS unless there is written documentation saying otherwise) [phone] . Prognosis On the one hand, other than her morbid obesity, this patient has very few health problems and has managed to stay out of the hospital. Ordinarily, we would expect her to respond well to treatment and improve.. This patient declined incredibly quickly and has very severe respiratory disease in spite of the fact that she has no known underlying chronic respiratory illness.. It remains unclear if she will pull through this. It is becoming more apparent that she might require tracheostomy if ongoing aggressive care is desired. Given her relatively good healthcare condition just days before the onset of this illness, she certainly deserves a decent trial of aggressive care. . . Code Status: Full Code Plan == Code Status: FULL CODE. (Family planning to meet in evening of 02/06/18 to consider changing status to Alt Code). == Medical Decision Making: Patient is currently incapacitated to make her own healthcare decisions. It is unclear if/when she will recover capacity to do so. Since there is no written designation of healthcare surrogate see that we are aware of, proxy decision making would fall to her 2 adult children -- Eric Caballero and Zenobia Clay. == Goals of medical treatment: Given the patient was in good health just days before the onset of this illness, goals continue to be aggressive. Given downhill course, family not so certain about going forward with tracheostomy. == Symptoms: * Pain: No known pre-hospitalization pain syndromes. Current sources of discomfort might include orotracheal and orogastric intubations; vascular access lines; restraints; Alexandre catheter; chest tubes; prolonged bedbound status. Currently on fentnayl/midazolam. No further recommendations at this time. * Dyspnea: Patient with underlying pneumonia and bilateral pneumothoraces. Dyspnea currently managed with ventilatory support. Bilateral chest tubes in place. No further recommendations at this time. * Encephalopathy: Patient is currently sedated but underlying encephalopathy probably secondary to her sepsis. Hopefully this will improve if we are able to make headway with the underlying infection. No further recommendations at this time. == Family to discuss goals of care evening of 02/06/18. Will likely still want ongoing aggressive care short of chest compressions/shock. == Family is inquiring if patient might benefit from Extracorporeal membrane oxygenation. One of the daughters had a stepson who almost from influenza pneumonia complicated by MRSA and pneumothoraces. He was helped by ECMO. == Palliative care will continue to follow to assist with symptom management and to further clarify goals of medical treatment as the clinical course evolves. . Attestation To help prompt me to consider important information that might be impacting today's encounter and assessment, information from prior notes written by myself or my colleagues may have been "brought forward" into today's note. My signature on this note, however, is an attestation that I personally performed the exam, history, and/or decision-making noted today, and, unless otherwise indicated, the interactions with patient, family, and staff as well as the review of records all occurred today. I also attest that the listed assessment and stated plan reflect my best clinical judgment today based on the combination of historical information, prior notes, and today's exam/ interactions. When time spent is documented, it refers only to time spent today by the signer, or if indicated, combined time spent today by collaborating physician/nurse practitioner. Hammad Butcher MD Feb 07, 2018 21:19
[2018-02-08] VITALS (37 sets, daily range): BP systolic 102–129; BP diastolic 55–67; PULSE 60–90; RESP 16–29; TEMP 97.5–98.9; O2SAT 92–100
[2018-02-08] MEDS: DILTIAZEM HCL 30 MG TAB PO SCH ×4 (00:07→17:16)
[2018-02-08] MEDS: LINEZOLID 600 MG PREMIX 300 ML IV SCH ×2 (00:07→12:20)
[2018-02-08] MEDS: MIDAZOLAM 100 MG/NS 100 ML DRIP Premix IV PRN ×3 (00:08→22:26)
[2018-02-08] MEDS: fentaNYL 2,500 MCG/NS 250 ML IV PRN ×3 (00:08→22:27)
[2018-02-08] MEDS: VANCOMYCIN INJ 1,500 MG in SODIUM CHLORID 0.9% 500 ML INJ 500 ML IV SCH ×2 (03:19→18:41)
[2018-02-08] MEDS: RESP: ALBUTEROL 2.5 MG/IPRATROPIUM 0.5 MG NEB (PRN) INH ×2 (04:21→19:59)
[2018-02-08] MEDS: HEPARIN SODIUM - SQ 10,000 UNITS/ML VIAL SQ SCH ×3 (06:19→21:16)
[2018-02-08] MEDS: MEROPENEM INJ 1,000 MG in SODIUM CHLORIDE 0.9% INJ 100 ML IV SCH ×2 (06:20→12:20)
[2018-02-08] MEDS: CHLORHEXIDINE GLUCONATE 2 % 1 PACK (2 CLOTHS) TOP SCH (06:20)
--- NOTE | 2018-02-08 06:24 | RADRPT ---
EXAM DATE/TIME: 02/08/2018 05:02 [facility] COMPARISON: CHEST SINGLE AP, February 06, 2018, 2:53. CHEST SINGLE AP, February 06, 2018, 11:07. CHEST SINGLE AP, Feb, 11:46. CHEST SINGLE AP, February 07, 2018, 4:16. CHEST SINGLE AP, February 07, 2018, 16:58. INDICATIONS : Respiratory distress. MEDICAL HISTORY : Sepsis. SURGICAL HISTORY : Gastric bypass. ENCOUNTER: Subsequent ACUITY: 1 week PAIN SCORE: Non-responsive. LOCATION: Bilateral chest FINDINGS: Single AP view of the chest. Endotracheal tube, nasogastric tube, 2 right-sided chest tubes, and a le ft-sided chest tube remain in place. Extensive bilateral subcutaneous emphysema again seen. No gross evidence of pneumothorax. Increased bilateral confluent pulmonary parenchymal opacity with new obscur ation of the cardiac silhouette margins. CONCLUSION: 1. Increased bilateral pulmonary parenchymal opacity left greater than right. Differential diagnosis includes infection, pulmonary edema, and ARDS. 2. Extensive bilateral subcutaneous emphysema. 3. Bilateral chest tubes unchanged. No gross evidence of pneumothorax. Dontrell Dow MD on February 08, 2018 at 6:19 Board Certified Radiologist. This report was verified electronically.
[2018-02-08 07:23] LABS: AUTOMATED NEUTROPHIL # 19.5 TH/MM3 (1.8-7.7); BASOPHIL # 0.1 TH/MM3 (0-0.2); BASOPHIL % 0.2 % (0.0-2.0); EOSINOPHIL # 0.2 TH/MM3 (0-0.4); HEMATOCRIT 26.8 % (35.0-46.0); HEMOGLOBIN 8.5 GM/DL (11.6-15.3); LYMPH % 5.3 % (9.0-44.0); LYMPHOCYTE # 1.1 TH/MM3 (1.0-4.8); MEAN CELL VOLUME 85.2 FL (80.0-100.0); MEAN CORPUSCULAR HGB CONC 31.7 % (32.0-36.0); MEAN PLATELET VOLUME 9.8 FL (7.0-11.0); MONO % 2.3 % (0.0-8.0); MONOCYTE # 0.5 TH/MM3 (0-0.9); NEUT % 91.2 % (16.0-70.0); PLATELET COUNT 301 TH/MM3 (150-450); RED BLOOD COUNT 3.14 MIL/MM3 (4.00-5.30); RED CELL DISTRIBUTION WIDTH 16.2 % (11.6-17.2); WHITE BLOOD COUNT 21.4 TH/MM3 (4.0-11.0)
[2018-02-08 07:45] LABS: BICARBONATE 32.2 MEQ/L (21.0-32.0); CREATININE 0.95 MG/DL (0.50-1.00); MAGNESIUM 2.7 MG/DL (1.5-2.5); PHOSPHORUS 4.1 MG/DL (2.5-4.9)
[2018-02-08] MEDS: INSULIN ASPART SUPPLEMENTAL SCALE SQ SCH ×4 (08:00→21:16)
[2018-02-08 08:42] LABS: BANDS 8 % (0-6); LYMPHOCYTES 2 % (9-44); METAMYELOCYTES 1 % (0-1); MONOCYTES 2 % (0-8); NEUTROPHIL # MANUAL DIFF 20.5 TH/MM3 (1.8-7.7); POLYS (SEG NEUTROPHILS) 87 % (16-70); TOXIC GRANULATION 2+ (NORMAL)
[2018-02-08] MEDS: CHLORHEXIDINE 0.12% (ORAL KIT) 15 ML CUP MT SCH ×2 (09:30→21:15)
[2018-02-08] MEDS: ASPIRIN 81 MG CHEW TAB CHEW SCH (09:31)
[2018-02-08] MEDS: SODIUM CHLORIDE 0.9% FLUSH 10 ML FLUSH IV FLUSH SCH ×2 (09:31→21:16)
[2018-02-08] MEDS: DOCUSATE SODIUM 50 MG/SENNA 8.6 MG TAB PO SCH ×2 (09:31→21:16)
[2018-02-08] MEDS: FAMOTIDINE 20 MG TAB PO SCH ×2 (09:31→21:16)
--- NOTE | 2018-02-08 12:55 | PD.CARD.PN ---
Subjective Subjective Remarks No further Afib Hemodynamically stable Objective Medications Current Medications Medications (Trade) Dose Ordered Sig/Tyler Route Start Time Stop Time Status Last Admin (NS Flush) 2 ml UNSCH PRN IV FLUSH 01/30/18 19:00 02/05/18 09:03 (NS Flush) 2 ml BID IV FLUSH 01/30/18 21:00 02/08/18 09:31 (Tylenol) 650 mg Q6H PRN PO 01/30/18 19:00 02/06/18 00:11 (Morphine Inj) 2 mg Q2H PRN IV PUSH 01/30/18 19:00 02/05/18 11:41 (Zofran Inj) 4 mg Q6H PRN IV PUSH 01/30/18 19:00 (Restoril) 15 mg HS PRN PO 01/30/18 19:00 Future Hold (Duoneb Neb) 1 ampule Q2HR NEB PRN INH 01/30/18 19:00 02/08/18 04:21 (Heparin Inj) 5,000 units Q8HR SQ 01/30/18 22:00 02/08/18 06:19 Miscellaneous Information 1 Q361D XX 01/30/18 19:00 01/30/18 22:56 (Chlorhexidine 2% Cloth) Taper DAILY@04 TOP 01/31/18 04:00 01/27/19 03:59 02/08/18 06:20 (Chlorhexidine 2% Cloth) 3 pack UNSCH PRN TOP 01/30/18 19:00 (Chiquis-Colace) 1 tab BID PO 01/30/18 21:00 02/08/18 09:31 (Milk Of Magnesia Liq) 30 ml Q12H PRN PO 01/30/18 19:00 (Senokot) 17.2 mg Q12H PRN PO 01/30/18 19:00 (Dulcolax Supp) 10 mg DAILY PRN RECTAL 01/30/18 19:00 02/07/18 05:30 (Lactulose Liq) 30 ml DAILY PRN PO 01/30/18 19:00 (Peridex 0.12% Liq) 15 ml BID@08,20 MT 01/31/18 08:00 02/08/18 09:30 Fentanyl Citrate 250 ml @ 20 mls/hr TITRATE PRN IV 01/30/18 23:45 02/08/18 00:08 Midazolam HCl 100 ml @ 5 mls/hr TITRATE PRN IV 01/30/18 23:45 02/08/18 00:08 Linezolid 300 ml @ 300 mls/hr Q12H IV 02/01/18 01:00 02/08/18 12:20 (D50w (Vial) Inj) 25 ml UNSCH PRN IV 02/02/18 15:15 (Glucagon Inj) 1 mg UNSCH PRN IM/SQ 02/02/18 15:15 Pharmacy Profile Note 0 ml @ 0 mls/hr UNSCH OTHER 02/02/18 15:15 (Pepcid) 10 mg BID PO 02/02/18 21:00 02/08/18 09:31 (Trandate Inj) 10 mg Q4H PRN IV PUSH 02/04/18 05:00 (Apresoline Inj) 20 mg Q4H PRN IV PUSH 02/04/18 05:00 02/05/18 11:41 (Aspirin Chew) 81 mg DAILY CHEW 02/06/18 09:00 02/08/18 09:31 (Cardizem) 30 mg Q6HR PO 02/05/18 12:30 02/08/18 12:17 Vancomycin HCl 1500 mg/Sodium Chloride 515 ml @ 250 mls/hr Q18H IV 02/07/18 06:00 02/08/18 03:19 Miscellaneous Information SPECIFIC LAB TO BE DRAWN:VANCOMYCIN TROUGH DATE TO... ONCE ONCE .XX 02/09/18 11:45 02/09/18 11:46 (NovoLOG SUPPLEMENTAL SCALE) 1 ACHS SLIDING SCALE SQ 02/07/18 12:00 02/08/18 12:00 (ASP Crit: Infectious disease consult) 1 UNSCH X1 PRN .XX 02/07/18 16:30 02/08/18 16:29 ([facility]) 1 UNSCH X1 PRN XX 02/07/18 16:30 02/08/18 16:29 Meropenem 1000 mg/ Sodium Chloride 100 ml @ 200 mls/hr Q8H IV 02/07/18 20:00 02/08/18 12:20 Propofol 100 ml @ 3.345 mls/ hr TITRATE PRN IV 02/07/18 19:30 02/07/18 20:28 Vital Signs / I&O Vital Signs Date Time Temp Pulse Resp B/P (MAP) Pulse Ox O2 Delivery O2 Flow Rate FiO2 02/08/18 11:25 95 55 02/08/18 10:30 81 16 103/55 (71) 96 02/08/18 10:00 81 17 111/56 (74) 99 02/08/18 10:00 81 02/08/18 09:30 81 16 108/56 (73) 97 02/08/18 09:00 80 16 102/55 (71) 97 02/08/18 08:30 80 16 111/59 (76) 98 02/08/18 08:00 81 02/08/18 08:00 98.9 81 16 113/55 (74) 97 02/08/18 08:00 55 02/08/18 07:40 97 55 02/08/18 07:30 82 16 116/57 (76) 97 02/08/18 07:00 83 29 109/56 (73) 97 02/08/18 06:00 84 02/08/18 06:00 84 16 111/56 (74) 95 02/08/18 05:00 84 02/08/18 05:00 84 16 127/60 (82) 96 02/08/18 04:21 100 55 02/08/18 04:00 55 02/08/18 04:00 72 02/08/18 04:00 98.6 72 16 114/57 (76) 98 02/08/18 03:00 74 16 124/60 (81) 100 02/08/18 03:00 74 02/08/18 02:00 76 16 107/57 (74) 96 02/08/18 02:00 76 02/08/18 01:00 78 02/08/18 01:00 78 18 111/55 (73) 94 02/08/18 00:30 79 02/08/18 00:30 79 19 108/57 (74) 96 02/08/18 00:00 98.5 77 16 105/58 (74) 97 02/08/18 00:00 77 02/08/18 00:00 55 02/07/18 23:55 97 55 02/07/18 23:00 77 16 106/59 (75) 97 02/07/18 23:00 77 02/07/18 22:00 80 17 107/57 (74) 96 02/07/18 22:00 80 02/07/18 21:00 78 02/07/18 21:00 78 17 106/54 (71) 98 02/07/18 20:07 95 55 02/07/18 20:00 55 02/07/18 20:00 72 02/07/18 20:00 98.8 72 16 102/57 (72) 95 02/07/18 18:00 75 02/07/18 17:29 94 55 02/07/18 16:00 55 02/07/18 16:00 98.6 78 24 130/65 (86) 94 02/07/18 16:00 81 02/07/18 14:00 82 I/O 02/07/18 02/07/18 02/07/18 02/08/18 02/08/18 02/08/18 07:00 15:00 23:00 07:00 15:00 23:00 Intake Total 1197 ml 350 ml 1132 ml 1983 ml Output Total 943 ml 800 ml 637 ml Balance 254 ml 350 ml 332 ml 1346 ml IV Total 515 ml 350 ml 300 ml 1165 ml Tube Feeding 482 ml 712 ml 698 ml Other 200 ml 120 ml 120 ml Output Urine Total 900 ml 750 ml 600 ml Chest Tube Drainage Total 43 ml 50 ml 37 ml # Bowel Movements 0 1 0 Physical Exam GENERAL: Intubated and sedated SKIN: Warm and dry. HEAD: Atraumatic. Normocephalic. EYES: Pupils equal and round. No scleral icterus. No injection or drainage. ENT: No nasal bleeding or discharge. Mucous membranes pink and moist. NECK: Trachea midline. No JVD. CARDIOVASCULAR: Regular rate and rhythm. RESPIRATORY: No accessory muscle use. Decreased breath sounds bilaterally GASTROINTESTINAL: Abdomen soft, non-tender, nondistended. Hepatic and splenic margins not palpable. MUSCULOSKELETAL: Extremities without clubbing, cyanosis, or edema. No obvious deformities. NEUROLOGICAL: Intubated and sedated Laboratory Laboratory Tests Test 02/08/18 06:00 White Blood Count 21.4 TH/MM3 Red Blood Count 3.14 MIL/MM3 Hemoglobin 8.5 GM/DL Hematocrit 26.8 % Mean Corpuscular Volume 85.2 FL Mean Corpuscular Hemoglobin 27.0 PG Mean Corpuscular Hemoglobin Concent 31.7 % Red Cell Distribution Width 16.2 % Platelet Count 301 TH/MM3 Mean Platelet Volume 9.8 FL Neutrophils (%) (Auto) 91.2 % Lymphocytes (%) (Auto) 5.3 % Monocytes (%) (Auto) 2.3 % Eosinophils (%) (Auto) 1.0 % Basophils (%) (Auto) 0.2 % Neutrophils # (Auto) 19.5 TH/MM3 Lymphocytes # (Auto) 1.1 TH/MM3 Monocytes # (Auto) 0.5 TH/MM3 Eosinophils # (Auto) 0.2 TH/MM3 Basophils # (Auto) 0.1 TH/MM3 CBC Comment AUTO DIFF Differential Total Cells Counted 100 Neutrophils % (Manual) 87 % Band Neutrophils % 8 % Lymphocytes % 2 % Monocytes % 2 % Neutrophils # (Manual) 20.5 TH/MM3 Metamyelocytes 1 % Differential Comment FINAL DIFF MANUAL Toxic Granulation 2+ Platelet Estimate NORMAL Platelet Morphology Comment ENLARGED Blood Urea Nitrogen 33 MG/DL Creatinine 0.95 MG/DL Random Glucose 174 MG/DL Calcium Level 8.0 MG/DL Phosphorus Level 4.1 MG/DL Magnesium Level 2.7 MG/DL Sodium Level 145 MEQ/L Potassium Level 3.9 MEQ/L Chloride Level 106 MEQ/L Carbon Dioxide Level 32.2 MEQ/L Anion Gap 7 MEQ/L Estimat Glomerular Filtration Rate 60 ML/MIN Imaging Last 24 hours Impressions Chest X-Ray 02/08/18 0600 Signed Impressions: Service Date/Time: Thursday, February 08, 2018 05:02 - CONCLUSION: 1. Increased bilateral pulmonary parenchymal opacity left greater than right. Differential diagnosis includes infection, pulmonary edema, and ARDS. 2. Extensive bilateral subcutaneous emphysema. 3. Bilateral chest tubes unchanged. No gross evidence of pneumothorax. Dontrell Dow MD Assessment and Plan Problem List: (1) Bacteremia ICD Codes: R78.81 - Bacteremia (2) Bilateral pneumothoraces ICD Codes: J93.9 - Pneumothorax, unspecified (3) PNA (pneumonia) ICD Codes: J18.9 - Pneumonia, unspecified organism Status: Acute (4) Sepsis ICD Codes: A41.9 - Sepsis, unspecified organism Status: Acute Assessment and Plan 1) Bacteremia/Sepsis GRANT negative for endocarditis 2) Afib with RVR No further episodes Amiodarone drip stopped Cardizem 30 QID CHADSVASc = 1 ASA 81mg daily 3) Bilateral pneumothoraces s/p chest tubes 4) Possible ARDS Problem Qualifiers (1) PNA (pneumonia): Qualified Codes: J18.9 - Pneumonia, unspecified organism (2) Sepsis: Qualified Codes: A41.9 - Sepsis, unspecified organism Amaury Vázquez DO Feb 08, 2018 12:55
--- NOTE | 2018-02-08 14:17 | HHI.IDPN ---
Subjective Subjective Remarks On CPAP fever resolved still with 4 CTs Antibiotics zyvox Vanco IV meropenem Past Medical History Gastric bypass Tonsillectomy Allergies: Coded Allergies: No Known Allergies (Unverified , 01/30/18) Objective . Vital Signs Date Time Temp Pulse Resp B/P (MAP) Pulse Ox O2 Delivery O2 Flow Rate FiO2 02/08/18 11:25 95 55 02/08/18 10:30 81 16 103/55 (71) 96 02/08/18 10:00 81 17 111/56 (74) 99 02/08/18 10:00 81 02/08/18 09:30 81 16 108/56 (73) 97 02/08/18 09:00 80 16 102/55 (71) 97 02/08/18 08:30 80 16 111/59 (76) 98 02/08/18 08:00 81 02/08/18 08:00 98.9 81 16 113/55 (74) 97 02/08/18 08:00 55 02/08/18 07:40 97 55 02/08/18 07:30 82 16 116/57 (76) 97 02/08/18 07:00 83 29 109/56 (73) 97 02/08/18 06:00 84 02/08/18 06:00 84 16 111/56 (74) 95 02/08/18 05:00 84 02/08/18 05:00 84 16 127/60 (82) 96 02/08/18 04:21 100 55 02/08/18 04:00 55 02/08/18 04:00 72 02/08/18 04:00 98.6 72 16 114/57 (76) 98 02/08/18 03:00 74 16 124/60 (81) 100 02/08/18 03:00 74 02/08/18 02:00 76 16 107/57 (74) 96 02/08/18 02:00 76 02/08/18 01:00 78 02/08/18 01:00 78 18 111/55 (73) 94 02/08/18 00:30 79 02/08/18 00:30 79 19 108/57 (74) 96 02/08/18 00:00 98.5 77 16 105/58 (74) 97 02/08/18 00:00 77 02/08/18 00:00 55 02/07/18 23:55 97 55 02/07/18 23:00 77 16 106/59 (75) 97 02/07/18 23:00 77 02/07/18 22:00 80 17 107/57 (74) 96 02/07/18 22:00 80 02/07/18 21:00 78 02/07/18 21:00 78 17 106/54 (71) 98 02/07/18 20:07 95 55 02/07/18 20:00 55 02/07/18 20:00 72 02/07/18 20:00 98.8 72 16 102/57 (72) 95 02/07/18 18:00 75 02/07/18 17:29 94 55 02/07/18 16:00 55 02/07/18 16:00 98.6 78 24 130/65 (86) 94 02/07/18 16:00 81 . Laboratory Tests Test 02/07/18 06:50 02/08/18 06:00 White Blood Count 22.7 TH/MM3 21.4 TH/MM3 Red Blood Count 3.66 MIL/MM3 3.14 MIL/MM3 Hemoglobin 9.9 GM/DL 8.5 GM/DL Hematocrit 31.1 % 26.8 % Mean Corpuscular Volume 85.0 FL 85.2 FL Mean Corpuscular Hemoglobin 27.0 PG 27.0 PG Mean Corpuscular Hemoglobin Concent 31.8 % 31.7 % Red Cell Distribution Width 16.2 % 16.2 % Platelet Count 267 TH/MM3 301 TH/MM3 Mean Platelet Volume 9.9 FL 9.8 FL Neutrophils (%) (Auto) 89.5 % 91.2 % Lymphocytes (%) (Auto) 6.6 % 5.3 % Monocytes (%) (Auto) 2.2 % 2.3 % Eosinophils (%) (Auto) 1.3 % 1.0 % Basophils (%) (Auto) 0.4 % 0.2 % Neutrophils # (Auto) 20.3 TH/MM3 19.5 TH/MM3 Lymphocytes # (Auto) 1.5 TH/MM3 1.1 TH/MM3 Monocytes # (Auto) 0.5 TH/MM3 0.5 TH/MM3 Eosinophils # (Auto) 0.3 TH/MM3 0.2 TH/MM3 Basophils # (Auto) 0.1 TH/MM3 0.1 TH/MM3 CBC Comment AUTO DIFF AUTO DIFF Differential Total Cells Counted 100 100 Neutrophils % (Manual) 80 % 87 % Band Neutrophils % 7 % 8 % Lymphocytes % 7 % 2 % Monocytes % 2 % 2 % Eosinophils % 1 % Neutrophils # (Manual) 20.4 TH/MM3 20.5 TH/MM3 Metamyelocytes 2 % 1 % Myelocytes 1 % Differential Comment FINAL DIFF MANUAL FINAL DIFF MANUAL Toxic Granulation 1+ 2+ Toxic Vacuolation PRESENT Platelet Estimate NORMAL NORMAL Platelet Morphology Comment ENLARGED ENLARGED Laboratory Tests Test 02/07/18 06:50 02/08/18 06:00 Blood Urea Nitrogen 32 MG/DL 33 MG/DL Creatinine 1.00 MG/DL 0.95 MG/DL Random Glucose 206 MG/DL 174 MG/DL Calcium Level 8.4 MG/DL 8.0 MG/DL Magnesium Level 2.6 MG/DL 2.7 MG/DL Sodium Level 145 MEQ/L 145 MEQ/L Potassium Level 4.0 MEQ/L 3.9 MEQ/L Chloride Level 107 MEQ/L 106 MEQ/L Carbon Dioxide Level 30.8 MEQ/L 32.2 MEQ/L Anion Gap 7 MEQ/L 7 MEQ/L Estimat Glomerular Filtration Rate 56 ML/MIN 60 ML/MIN Phosphorus Level 4.1 MG/DL Microbiology Date/Time Source Procedure Growth Status 02/06/18 15:00 Sputum Endotracheal Gram Stain - Final Resulted 02/06/18 15:00 Sputum Culture - Preliminary Enterobacter Aerogenes S. Aureus Mrsa Resulted Imaging Last Impressions Chest X-Ray 02/08/18 0600 Signed Impressions: Service Date/Time: Thursday, February 08, 2018 05:02 - CONCLUSION: 1. Increased bilateral pulmonary parenchymal opacity left greater than right. Differential diagnosis includes infection, pulmonary edema, and ARDS. 2. Extensive bilateral subcutaneous emphysema. 3. Bilateral chest tubes unchanged. No gross evidence of pneumothorax. Dontrell Dow MD Chest CT 01/30/18 0000 Signed Impressions: Service Date/Time: Tuesday, January 30, 2018 20:07 - CONCLUSION: 1. Dense consolidation throughout the left lingula and left lower lobe. There is more patchy areas of consolidation in the upper lobes bilaterally. This pattern is most suggestive of inflammatory/infectious processes. 2. Mild left pleural effusion. 3. Status post gastric surgery/bypass with a mild hiatal hernia. Michael Gabriel MD Physical Exam CONSTITUTIONAL/GENERAL: Opens eyes when stimulated, on the vent, NAD SKIN: No jaundice, rashes, or lesions. Ecchymoses on upper extremities. Skin temperature appropriate. generalysed edema Massive Sq emphysema HEAD: Atraumatic. Normocephalic. EYES: Pupils equal and round and reactive. Extraocular motions intact. No scleral icterus. No injection or drainage. ENT: No nasal discharge, orally intubated NECK: Supple, nontender. CARDIOVASCULAR: Regular rate and rhythm without murmurs, gallops, or rubs. RESPIRATORY/CHEST: Symmetric, unlabored respirations. Rhonchi b/l. CTx2 on R and CT x 2 on the L GASTROINTESTINAL: Abdomen soft, nondistended. No organomegaly. Mild grimacing during palpation, not guarding. GENITOURINARY: Without palpable bladder distension. Alexandre catheter in place. MUSCULOSKELETAL: Extremities without clubbing, cyanosis, + 3 diffuse edema. . NEUROLOGICAL: more awake today PSYCHIATRIC: unable to assess LINE: no evidence of infection Assessment & Plan Remarks IMPRESSION MRSA PNA Multiple b/l pneumothoraces ? postinfluenza PNA Acute VDRF High grade , sustained MRSA bacteremia GRANT negative Sevrte leukocytosis and bandemia New PNA, Enterobacter (panS) along with MRSA PLAN Continue zyvox Continue vancomycin cahnge meropenem to Rocephine Carlene Singleton MD Feb 08, 2018 14:17
[2018-02-08] MEDS: PROPOFOL 1000 MG/100 ML IV PRN ×2 (15:51→22:27)
[2018-02-08] MEDS: cefTRIAXone INJ 2,000 MG in SODIUM CHLORIDE 0.9% INJ 100 ML IV SCH (17:17)
--- NOTE | 2018-02-08 17:23 | HHI.CCPN ---
Subjective Remarks/Hospital Course 01/30: 62-year-old female presents for evaluation of increasing shortness of breath and chest pain. She reports 1 week of coughing 3 days of pain in her left chest which radiates to her back, which prompted the visit to the emergency room yesterday. She rates her pain a 6 out of 10. She reports fevers , chills, fatigue, mild nausea. She denies any abdominal pain, vomiting. Patient denies any significant past medical history. Symptom onset was gradual , symptom severity is severe, there are no alleviating factors. Patient states that she has been taking the azithromycin antibiotics that were prescribed to her. She denies any current or historical tobacco use. 01/31: Intubated at 1 AM this morning and placed on mechanical ventilation due to worsening respiratory distress. Currently sedated, orally intubated on mechanical ventilation. 02/01: Remains sedated, orally intubated on mechanical ventilation. Went into A. fib with RVR this morning. Loaded with amiodarone, started on amiodarone drip and given digoxin 0.5 mg IV 02/02: Remains sedated, orally intubated on mechanical ventilation. Right sided pigtail catheter in place with 1+ air leak. Converted to sinus rhythm overnight. Remains on amiodarone gtt. 02/03: Remains sedated, orally intubated on mechanical ventilation. 1+ air leak and right sided pigtail catheter. Tolerating tube feeds. Remains on amiodarone gtt. 02/04: Noted to have pneumothorax on the left side this morning on routine chest x -ray which appeared to be under tension. Right sided pigtail catheter placed by Dr. Peña with reexpansion of lung. Patient remains sedated, orally intubated on mechanical ventilation. 1+ airleak and bilateral chest tubes noted. 02/05: Afebrile. Persistent leukocytosis, bilateral chest tubes continue on wall suction. Chest x-ray pending this a.m.. Patient scheduled for GRANT today, discussed with Dr. Vázquez. Patient continues on amiodarone infusion with sinus rhythm. Postprocedure GRANT,this afternoon, the patient became extremely agitated, noted significant increase in subcu emphysema, peak pressures 50's, O2 saturation significantly decreased to 78-80 %. Stat chest x-ray performed patient was noted to have a significant right pneumothorax. 20 Azerbaijani right chest tube placement emergently, with increase in O2 saturation decrease in peak inspiratory pressures. 02/06: Afebrile. Patient with persistent bilateral pneumothoraces, with diffuse bilateral infiltrates and massive SQ emphysema. O2 requirement significantly increased during the night, PIP 38-44. 28 F chest tubes were placed bilaterally with resolution of left pneumothorax and minimization of right pneumothorax, and improved oxygenation. 02/07: TMax 100.1 Chest tubes remain on suction. Resolution of pneumothoraces, continued extensive SQ emphysema. Persistent leukocytosis noted. FiO2 weaned to 50%. 02/08: Late entry note patient seen at 1250. Attempts at CPAP trials, unsuccessful this morning. FiO2 decreased 50%, with adequate oxygenation. Objective Vital Signs Date Time Temp Pulse Resp B/P (MAP) Pulse Ox O2 Delivery O2 Flow Rate FiO2 02/08/18 16:26 95 50 02/08/18 14:30 82 18 112/58 (76) 02/08/18 13:00 97.5 02/06/18 03:50 Ventilator Intake and Output 02/08/18 02/08/18 02/09/18 08:00 16:00 00:00 Intake Total 1983 ml Output Total 637 ml Balance 1346 ml Result Diagram: 02/08/18 0600 02/08/18 0600 Imaging Last Impressions Chest X-Ray 02/06/18 0600 Signed Impressions: Service Date/Time: Tuesday, February 06, 2018 02:53 - CONCLUSION: Diffuse bilateral infiltrates. Bilateral pneumothoraces. Massive subcutaneous emphysema Michael Holloway MD Chest CT 01/30/18 0000 Signed Impressions: Service Date/Time: Tuesday, January 30, 2018 20:07 - CONCLUSION: 1. Dense consolidation throughout the left lingula and left lower lobe. There is more patchy areas of consolidation in the upper lobes bilaterally. This pattern is most suggestive of inflammatory/infectious processes. 2. Mild left pleural effusion. 3. Status post gastric surgery/bypass with a mild hiatal hernia. Michael Gabriel MD Last Impressions Chest X-Ray 02/04/18 1700 Signed Impressions: Service Date/Time: Sunday, February 04, 2018 17:03 - CONCLUSION: Persistent 1.5 cm right pneumothorax with chest drainage catheter in place stop extensive diffuse bilateral subcutaneous emphysema, stable. Ilya Harris MD Chest CT 01/30/18 0000 Signed Impressions: Service Date/Time: Tuesday, January 30, 2018 20:07 - CONCLUSION: 1. Dense consolidation throughout the left lingula and left lower lobe. There is more patchy areas of consolidation in the upper lobes bilaterally. This pattern is most suggestive of inflammatory/infectious processes. 2. Mild left pleural effusion. 3. Status post gastric surgery/bypass with a mild hiatal hernia. Michael Gabriel MD Last 24 hours Impressions Chest X-Ray 01/30/18 1556 Signed Impressions: Service Date/Time: Tuesday, January 30, 2018 16:01 - CONCLUSION: 1. Bilateral airspace disease with significant consolidation in the left base. 2. Elevated left hemidiaphragm versus eventration. Ramon Blunt MD Chest CT 01/30/18 0000 Signed Impressions: Service Date/Time: Tuesday, January 30, 2018 20:07 - CONCLUSION: 1. Dense consolidation throughout the left lingula and left lower lobe. There is more patchy areas of consolidation in the upper lobes bilaterally. This pattern is most suggestive of inflammatory/infectious processes. 2. Mild left pleural effusion. 3. Status post gastric surgery/bypass with a mild hiatal hernia. Michael Gabriel MD Procedures 02/05- Right emergent 20 F chest tube placement 02/06: Left 28 Azerbaijani chest tube placement, right chest tube replacement 28 [place] Objective Remarks HEENT/ Neuro: Sedated, orally intubated, Pallor present, no icterus, tongue/ mucosa moist significant SQ emphysema Neck: No JVD Chest/Pulm: on mech vent, air entry decreased bilaterally at bases, scattered rhonchi bilaterally. Bilateral pigtail catheters insitu., and 28F chest tubes bilaterally to -40cm H20 CVS: S1-S2 regular, no murmur GI/abdomen: soft, nontender, bowel sounds hypoactive Neuro: RASS -2, currently on fentanyl and Versed infusions. Patient moving extremities 4 Extremities: warm bilaterally, 1+bilateral peripheral edema upper and lower extremities A/P Assessment and Plan Acute Respiratory failure MRSA pneumonia MRSA bacteremia Sepsis Persistent leukocytosis COPD Persistent bilateral pneumothorax Post Influenza pneumonia? - Antibiotics per ID. On Zyvox. MRSA bacteremia persists from blood culture on 02/01. Dr. Singleton added IV vancomycin and consulted cardiology for GRANT to evaluate heart valves. -Repeat blood cultures per ID. - Bal culture/blood cultures growing MRSA -Legionella and strep pneumo antigen negative -Consulted ID for sepsis/pneumonia - Dr. Singleton following. - DuoNeb scheduled and when necessary - Titrated off IV steroids by 02/03 -Bilateral pigtail catheters in place with 1+ air leak, continue on suction -40 on right, -20 on left -02/06; chest x-ray diffuse bilateral infiltrates massive subcu emphysema bilateral pneumothoraces. Placement of 28 Azerbaijani left chest tube, repeat placement of 20 Azerbaijani chest tube with 28 Azerbaijani chest tube -Possible recurrent pneumothoraces secondary to post influenza viral PNA -02/08 CXR significant subcu emphysema, no pneumothorax, chest tubes in place. Worsening opacity left greater than right Acute kidney injury-resolved Dehydration-resolved - Maintain kendrick - Strict I's and O's - Monitor trend of creatinine and electrolytes. A. fib with RVR (converted to RSR 02/02) -02/05 amiodarone infusion discontinued. -Digoxin 0.5 mg IV x 1 on 02/01. - 02/05 GRANT -no valvular vegetations. EF 55-60%, trace MVR, mild TVR, PAP 35 Hyperglycemia Increase sliding scale insulin dosing Glucose monitoring per ICU protocol DVT GI prophylaxis - Teds SCDs - Subcutaneous heparin - Pepcid Lines: Right subclavian central line inserted 02/01. Peripheral IVs 2 Critical Care: my billing statement This patient remains critically ill with one or more organ systems which are or may become a threat to life. I have spent in excess of 30 minutes discontinuously in the care and management of this patient. This time is exclusive of procedures, and includes, but is not limited to, evaluation of the patient, review of the medical record, discussions with family, consultants, nursing staff, or respiratory therapy, and documentation in the medical record. D/W Dr. Butcher and [employer] ([place]). Physician Dilcia Zhong MD Feb 08, 2018 17:23
--- NOTE | 2018-02-08 20:33 | HHI.HCPN ---
Reason for visit a. To assist with evaluation and management of symptoms including: dyspnea; encephalopathy, pain b. To assist medical decision maker(s) with: better understanding of current medical conditions; weighing benefits/burdens of medical treatment options; making medical treatment decisions. . Subjective/Interval History No significant change overnight. Patient remains intubated, mechanically ventilated, sedated, and minimally responsive in a medical ICU bed. Chest tubes remain in place. Chest x-ray today shows no pneumothoraces but worsening bilateral pulmonary opacities. Failed CPAP this AM. Oxygenating adequately on 50-55% FIO2. Sputum culture from 02/06/18 now growing Enterobacter (thurston sensitive) White blood count remains quite elevated at21.4 and bandemia persists. . . Family/friend interactions Family not at bedside. . Advance Directives Living Will: Never completed Health Care Surrogate: Never completed Durable Power of Cassandra Consultant: Never completed Advance Directive Specifics Date completed: Patient has never completed an advanced directive. . Health Care Surrogate(s): There is no written designation of healthcare surrogate. . Documented care wishes: There is no written documentation of healthcare goals/preferences. . Objective Vital Signs Date Time Temp Pulse Resp B/P (MAP) Pulse Ox O2 Delivery O2 Flow Rate FiO2 02/08/18 20:00 99 55 02/08/18 18:30 80 17 122/59 (80) 94 02/08/18 18:00 80 02/08/18 18:00 80 19 112/58 (76) 92 02/08/18 17:30 87 22 125/61 (82) 94 02/08/18 17:00 88 18 120/57 (78) 97 02/08/18 16:30 90 19 129/60 (83) 96 02/08/18 16:26 95 50 02/08/18 16:00 98.8 84 17 119/59 (79) 97 02/08/18 16:00 55 02/08/18 16:00 84 02/08/18 15:30 83 19 125/59 (81) 98 02/08/18 15:00 82 18 117/61 (79) 98 02/08/18 14:30 82 18 112/58 (76) 95 02/08/18 14:00 84 02/08/18 14:00 60 02/08/18 14:00 84 20 110/57 (74) 97 4/6/18 13:30 86 20 122/67 (85) 94 4/18 13:00 97.5 86 20 119/64 (82) 95 02/08/18 13:00 60 /18 12:00 82 4/18 12:00 55 4/18 11:25 95 55 18 10:30 81 16 103/55 (71) 96 02/08/18 10:00 81 17 111/56 (74) 99 18 10:00 81 02/08/18 09:30 81 16 108/56 (73) 97 02/08/18 09:00 80 16 102/55 (71) 97 02/08/18 08:30 80 16 111/59 (76) 98 02/08/18 08:00 81 02/08/18 08:00 98.9 81 16 113/55 (74) 97 02/08/18 08:00 55 02/08/18 07:40 97 55 02/08/18 07:30 82 16 116/57 (76) 97 02/08/18 07:00 83 29 109/56 (73) 97 02/08/18 06:00 84 02/08/18 06:00 84 16 111/56 (74) 95 02/08/18 05:00 84 02/08/18 05:00 84 16 127/60 (82) 96 02/08/18 04:21 100 55 18 04:00 55 02/08/18 04:00 72 02/08/18 04:00 98.6 72 16 114/57 (76) 98 18 03:00 74 16 124/60 (81) 100 18 03:00 74 18 02:00 76 16 107/57 (74) 96 18 02:00 76 18 01:00 78 18 01:00 78 18 111/55 (73) 94 02/08/18 00:30 79 18 00:30 79 19 108/57 (74) 96 02/08/18 00:00 98.5 77 16 105/58 (74) 97 02/08/18 00:00 77 02/08/18 00:00 55 /03/22 23:55 97 55 4/5/18 23:00 77 16 106/59 (75) 97 02/07/18 23:00 77 02/07/18 22:00 80 17 107/57 (74) 96 02/07/18 22:00 80 02/07/18 21:00 78 02/07/18 21:00 78 17 106/54 (71) 98 . Physical Exam CONSTITUTIONAL/GENERAL: This is an obese patient, minimally responsive, sedated , in the medical intensive care unit bed. No apparent distress. Significant subcutaneous emphysema is present. TUBES/LINES/DRAINS: Orotracheal tube; orogastric tube; right subclavian central line; bilateral chest tubes; peripheral IV; soft wrist restraints; sequential compressive devices. SKIN: No jaundice, rashes, or lesions. Ecchymoses on upper extremities. No wounds seen anteriorly. Skin temperature appropriate. Not diaphoretic. EYES: Pupils equal and round. Unable to evaluate extraocular movements. Lids quite swollen from SQ emphysema left worse than right . No scleral icterus. No injection or drainage. Fundi not examined. ENT: Unable to evaluate hearing. Nose without bleeding or purulent drainage. Throat without visible erythema, exudates, masses, or lesions though difficult to assess adequately with intubations. NECK: Neck somewhat difficult to examine due to obesity and SQ emphysema. . Trachea midline. CARDIOVASCULAR: Regular rate/rhythm without murmurs, gallops, or rubs.Unable to assess JVD. RESPIRATORY/CHEST: Bilateral chest tubes. Symmetric respirations on vent. Decreased air movement at bases. No wheezing heard today. Scattered ronchi bilaterally. GASTROINTESTINAL: Abdomen obese, soft, non-tender, nondistended. No hepato- splenomegaly, or palpable masses. Bowel sounds hypoactive GENITOURINARY: Without palpable bladder distension. Alexandre catheter in place. MUSCULOSKELETAL: Extremities without clubbing, cyanosis. Widespread edema vs SQ emphysema (probably the latter). No mottling . LYMPHATICS: Not examined. NEUROLOGICAL: Sedated. No spontaneous movements seen. Will withdraw to noxious stimuli. PSYCHIATRIC: Unable to assess due to level of responsiveness. . Diagnostic Tests Laboratory Laboratory Tests Test 02/06/18 05:30 02/06/18 12:20 02/07/18 06:50 02/08/18 06:00 White Blood Count 19.1 TH/MM3 (4.0-11.0) 22.7 TH/MM3 (4.0-11.0) 21.4 TH/MM3 (4.0-11.0) Red Blood Count 3.32 MIL/MM3 (4.00-5.30) 3.66 MIL/MM3 (4.00-5.30) 3.14 MIL/MM3 (4.00-5.30) Hemoglobin 9.1 GM/DL (11.6-15.3) 9.9 GM/DL (11.6-15.3) 8.5 GM/DL (11.6-15.3) Hematocrit 28.4 % (35.0-46.0) 31.1 % (35.0-46.0) 26.8 % (35.0-46.0) Mean Corpuscular Volume 85.4 FL (80.0-100.0) 85.0 FL (80.0-100.0) 85.2 FL (80.0-100.0) Mean Corpuscular Hemoglobin 27.4 PG (27.0-34.0) 27.0 PG (27.0-34.0) 27.0 PG (27.0-34.0) Mean Corpuscular Hemoglobin Concent 32.1 % (32.0-36.0) 31.8 % (32.0-36.0) 31.7 % (32.0-36.0) Red Cell Distribution Width 16.4 % (11.6-17.2) 16.2 % (11.6-17.2) 16.2 % (11.6-17.2) Platelet Count 225 TH/MM3 (150-450) 267 TH/MM3 (150-450) 301 TH/MM3 (150-450) Mean Platelet Volume 9.6 FL (7.0-11.0) 9.9 FL (7.0-11.0) 9.8 FL (7.0-11.0) Neutrophils (%) (Auto) 90.2 % (16.0-70.0) 89.5 % (16.0-70.0) 91.2 % (16.0-70.0) Lymphocytes (%) (Auto) 6.0 % (9.0-44.0) 6.6 % (9.0-44.0) 5.3 % (9.0-44.0) Monocytes (%) (Auto) 2.1 % (0.0-8.0) 2.2 % (0.0-8.0) 2.3 % (0.0-8.0) Eosinophils (%) (Auto) 1.6 % (0.0-4.0) 1.3 % (0.0-4.0) 1.0 % (0.0-4.0) Basophils (%) (Auto) 0.1 % (0.0-2.0) 0.4 % (0.0-2.0) 0.2 % (0.0-2.0) Neutrophils # (Auto) 17.2 TH/MM3 (1.8-7.7) 20.3 TH/MM3 (1.8-7.7) 19.5 TH/MM3 (1.8-7.7) Lymphocytes # (Auto) 1.2 TH/MM3 (1.0-4.8) 1.5 TH/MM3 (1.0-4.8) 1.1 TH/MM3 (1.0-4.8) Monocytes # (Auto) 0.4 TH/MM3 (0-0.9) 0.5 TH/MM3 (0-0.9) 0.5 TH/MM3 (0-0.9) Eosinophils # (Auto) 0.3 TH/MM3 (0-0.4) 0.3 TH/MM3 (0-0.4) 0.2 TH/MM3 (0-0.4) Basophils # (Auto) 0.0 TH/MM3 (0-0.2) 0.1 TH/MM3 (0-0.2) 0.1 TH/MM3 (0-0.2) CBC Comment AUTO DIFF AUTO DIFF AUTO DIFF Differential Total Cells Counted 100 100 100 Neutrophils % (Manual) 69 % (16-70) 80 % (16-70) 87 % (16-70) Band Neutrophils % 23 % (0-6) 7 % (0-6) 8 % (0-6) Lymphocytes % 5 % (9-44) 7 % (9-44) 2 % (9-44) Monocytes % 2 % (0-8) 2 % (0-8) 2 % (0-8) Neutrophils # (Manual) 17.8 TH/MM3 (1.8-7.7) 20.4 TH/MM3 (1.8-7.7) 20.5 TH/MM3 (1.8-7.7) Metamyelocytes 1 % (0-1) 2 % (0-1) 1 % (0-1) Differential Comment FINAL DIFF MANUAL FINAL DIFF MANUAL FINAL DIFF MANUAL Toxic Granulation 1+ (NORMAL) 1+ (NORMAL) 2+ (NORMAL) Platelet Estimate NORMAL (NORMAL) NORMAL (NORMAL) NORMAL (NORMAL) Platelet Morphology Comment NORMAL (NORMAL) ENLARGED (NORMAL) ENLARGED (NORMAL) Blood Urea Nitrogen 38 MG/DL (7-18) 32 MG/DL (7-18) 33 MG/DL (7-18) Creatinine 0.94 MG/DL (0.50-1.00) 1.00 MG/DL (0.50-1.00) 0.95 MG/DL (0.50-1.00) Random Glucose 203 MG/DL (74-106) 206 MG/DL (74-106) 174 MG/DL (74-106) Calcium Level 8.5 MG/DL (8.5-10.1) 8.4 MG/DL (8.5-10.1) 8.0 MG/DL (8.5-10.1) Phosphorus Level 3.5 MG/DL (2.5-4.9) 4.1 MG/DL (2.5-4.9) Magnesium Level 2.5 MG/DL (1.5-2.5) 2.6 MG/DL (1.5-2.5) 2.7 MG/DL (1.5-2.5) Sodium Level 146 MEQ/L (136-145) 145 MEQ/L (136-145) 145 MEQ/L (136-145) Potassium Level 4.2 MEQ/L (3.5-5.1) 4.0 MEQ/L (3.5-5.1) 3.9 MEQ/L (3.5-5.1) Chloride Level 107 MEQ/L (98-107) 107 MEQ/L (98-107) 106 MEQ/L (98-107) Carbon Dioxide Level 35.8 MEQ/L (21.0-32.0) 30.8 MEQ/L (21.0-32.0) 32.2 MEQ/L (21.0-32.0) Anion Gap 3 MEQ/L (5-15) 7 MEQ/L (5-15) 7 MEQ/L (5-15) Estimat Glomerular Filtration Rate 60 ML/MIN (>89) 56 ML/MIN (>89) 60 ML/MIN (>89) Vancomycin Level Trough 21.8 MCG/ML (5.0-10.0) Eosinophils % 1 % (0-4) Myelocytes 1 % (0-0) Toxic Vacuolation PRESENT (NONE SEEN) Test 02/08/18 18:25 Blood Gas Puncture Site RT RADIAL Blood Gas Patient Temperature 98.6 Blood Gas HCO3 32 mmol/L (22-26) Blood Gas Base Excess 8.0 mmol/L (-2-2) Blood Gas Oxygen Saturation 92 % (90-100) Arterial Blood pH 7.45 (7.380-7.420) Arterial Blood Partial Pressure CO2 47 mmHg (38-42) Arterial Blood Partial Pressure O2 72 mmHg (61-120) Arterial Blood Oxygen Content 18.6 Vol % (12.0-20.0) Arterial Blood Carboxyhemoglobin 0.6 % (0-4) Arterial Blood Methemoglobin 1.1 % (0-2) Blood Gas Hemoglobin 14.4 G/DL (12.0-16.0) Oxygen Delivery Device VENTILATOR Blood Gas Ventilator Setting [id number] Blood Gas Inspired Oxygen 55 % . Result Diagram: 02/08/18 0600 02/08/18 06 Microbiology Microbiology Date/Time Source Procedure Growth Status 02/06/18 15:00 Sputum Endotracheal Gram Stain - Final Resulted 02/06/18 15:00 Sputum Culture - Preliminary Enterobacter Aerogenes S. Aureus Mrsa Resulted . Imaging Last Impressions Chest X-Ray 02/08/18 0600 Signed Impressions: Service Date/Time: Thursday, February 08, 2018 05:02 - CONCLUSION: 1. Increased bilateral pulmonary parenchymal opacity left greater than right. Differential diagnosis includes infection, pulmonary edema, and ARDS. 2. Extensive bilateral subcutaneous emphysema. 3. Bilateral chest tubes unchanged. No gross evidence of pneumothorax. Dontrell Dow MD Chest CT 01/30/18 0000 Signed Impressions: Service Date/Time: Tuesday, January 30, 2018 20:07 - CONCLUSION: 1. Dense consolidation throughout the left lingula and left lower lobe. There is more patchy areas of consolidation in the upper lobes bilaterally. This pattern is most suggestive of inflammatory/infectious processes. 2. Mild left pleural effusion. 3. Status post gastric surgery/bypass with a mild hiatal hernia. Michael Gabriel MD . Procedures * Intubation/mechanical ventilation right subclavian * Central line placement * Bilateral chest tube placement * Transesophageal echo * . Assessment and Plan Disease Oriented Problem List: (1) PNA (pneumonia) Comment: MRSA + Enterobacter (2) Respiratory failure (3) ARDS (adult respiratory distress syndrome) (4) Sepsis Comment: MRSA (5) Anemia (6) Hypoalbuminemia (7) Bilateral pneumothoraces Comment: Recurrent and multiple pneumothoraces . (8) ARF (acute renal failure) Comment: REsolving Symptom Scale: (1) Pain 0-10 Scale: Unable to quantify Comment: No known prehospitalization pain syndromes. Current sources of discomfort might include orotracheal and orogastric intubations; vascular access lines; restraints; Alexandre catheter; chest tubes; prolonged bedbound status. (2) Dyspnea 0-10 Scale: Unable to quantify Comment: Patient with underlying pneumonia and bilateral pneumothoraces. Dyspnea currently managed with ventilatory support. (3) Encephalopathy 0-10 Scale: Unable to quantify Pertinent Non-Medical Issues Psychosocial: Has a male partner . She normally lives with him in a manufactured home. He is a smoker. Her 2 daughters are now down from [place] to help. Spiritual: Patient is pentecostalism latter day. Accredited Farm Manager visits would be appreciated. Legal: There are no advance directives. Without written designation of a healthcare surrogate, proxy decision making would fall to both adult daughters. Ethical issues impacting care: Patient is currently incapacitated to make her own medical decisions. It is unclear if/when she will become capacitated to do so. . Important Contacts Alona Rosenbaumig (daughter and co-health care proxy) [phone] Zenobia Clay (daughter and co-health care proxy) [phone] Brett Mackay (boyfriend -- NO DECISION MAKING RIGHTS unless there is written documentation saying otherwise) [phone] . Prognosis On the one hand, other than her morbid obesity, this patient has very few health problems and has managed to stay out of the hospital. Ordinarily, we would expect her to respond well to treatment and improve.. This patient declined incredibly quickly and has very severe respiratory disease in spite of the fact that she has no known underlying chronic respiratory illness.She has multiple pneumothoraces. She has developed Enterobacter pneumonia on top of her MRSA pneumonia. She has had persisistent elevated WBCs and bandemia. It remains unclear if she will pull through this. It is becoming more apparent that she might require tracheostomy if ongoing aggressive care is desired. Given her relatively good healthcare condition just days before the onset of this illness, she certainly deserves a decent trial of aggressive care. . . Code Status: Full Code Plan == Code Status: FULL CODE. (Family planning to meet in evening of 02/06/18 to consider changing status to Alt Code). == Medical Decision Making: Patient is currently incapacitated to make her own healthcare decisions. It is unclear if/when she will recover capacity to do so. Since there is no written designation of healthcare surrogate see that we are aware of, proxy decision making would fall to her 2 adult children -- Eric Caballero and Zenobia Tinoco Clay. == Goals of medical treatment: Given the patient was in good health just days before the onset of this illness, goals continue to be aggressive. However, daughters have seen lack of progress and don't think the patient would want to be maintained indefinitely on ventilatory support. If physicians do not think she will have a good chance of eventually being weaned, they will probably not want to go forward with tracheostomy. == Symptoms: * Pain: No known pre-hospitalization pain syndromes. Current sources of discomfort might include orotracheal and orogastric intubations; vascular access lines; restraints; Alexandre catheter; chest tubes; prolonged bedbound status. Currently on fentanyl/midazolam. No further recommendations at this time. * Dyspnea: Patient with underlying pneumonia and bilateral pneumothoraces. Dyspnea currently managed with ventilatory support. Bilateral chest tubes in place. No further recommendations at this time. * Encephalopathy: Patient is currently sedated but underlying encephalopathy probably secondary to her sepsis. Hopefully this will improve if we are able to make headway with the underlying infection. No further recommendations at this time. == Family is inquiring if patient might benefit from Extracorporeal membrane oxygenation. One of the daughters had a stepson who almost from influenza pneumonia complicated by MRSA and pneumothoraces. He was helped by ECMO. Discussed this with Dr. Young. ECMO is not available at this institution. Also , since she can be adequately oxygenated without ECMO, she would not be a candidate. == Palliative care will continue to follow to assist with symptom management and to further clarify goals of medical treatment as the clinical course evolves. . Attestation To help prompt me to consider important information that might be impacting today's encounter and assessment, information from prior notes written by myself or my colleagues may have been "brought forward" into today's note. My signature on this note, however, is an attestation that I personally performed the exam, history, and/or decision-making noted today, and, unless otherwise indicated, the interactions with patient, family, and staff as well as the review of records all occurred today. I also attest that the listed assessment and stated plan reflect my best clinical judgment today based on the combination of historical information, prior notes, and today's exam/ interactions. When time spent is documented, it refers only to time spent today by the signer, or if indicated, combined time spent today by collaborating physician/nurse practitioner. . Hammad Butcher MD Feb 08, 2018 20:33
[2018-02-09] VITALS (22 sets, daily range): BP systolic 104–154; BP diastolic 56–72; PULSE 76–91; RESP 16–30; TEMP 98.5–100.5; O2SAT 93–100
[2018-02-09] MEDS: DILTIAZEM HCL 30 MG TAB PO SCH ×4 (00:44→17:02)
[2018-02-09] MEDS: LINEZOLID 600 MG PREMIX 300 ML IV SCH ×2 (00:44→13:51)
[2018-02-09] MEDS: RESP: ALBUTEROL 2.5 MG/IPRATROPIUM 0.5 MG NEB (PRN) INH ×3 (03:33→22:24)
[2018-02-09 05:31] LABS: AUTOMATED NEUTROPHIL # 19.5 TH/MM3 (1.8-7.7); BASOPHIL % 0.2 % (0.0-2.0); EOSINOPHIL # 0.2 TH/MM3 (0-0.4); EOSINOPHIL % 0.8 % (0.0-4.0); HEMATOCRIT 25.4 % (35.0-46.0); HEMOGLOBIN 8.2 GM/DL (11.6-15.3); LYMPH % 4.2 % (9.0-44.0); LYMPHOCYTE # 0.9 TH/MM3 (1.0-4.8); MEAN CELL VOLUME 84.4 FL (80.0-100.0); MEAN CORPUSCULAR HEMOGLOBIN 27.4 PG (27.0-34.0); MEAN CORPUSCULAR HGB CONC 32.4 % (32.0-36.0); MEAN PLATELET VOLUME 9.6 FL (7.0-11.0); MONO % 2.6 % (0.0-8.0); MONOCYTE # 0.5 TH/MM3 (0-0.9); NEUT % 92.2 % (16.0-70.0); PLATELET COUNT 399 TH/MM3 (150-450); RED BLOOD COUNT 3.01 MIL/MM3 (4.00-5.30); RED CELL DISTRIBUTION WIDTH 16.2 % (11.6-17.2); WHITE BLOOD COUNT 21.2 TH/MM3 (4.0-11.0)
[2018-02-09] MEDS: PROPOFOL 1000 MG/100 ML IV PRN ×2 (05:47→14:35)
[2018-02-09] MEDS: CHLORHEXIDINE GLUCONATE 2 % 1 PACK (2 CLOTHS) TOP SCH (05:48)
[2018-02-09] MEDS: HEPARIN SODIUM - SQ 10,000 UNITS/ML VIAL SQ SCH ×3 (05:48→20:20)
[2018-02-09 05:52] LABS: BICARBONATE 33.2 MEQ/L (21.0-32.0); CALCIUM 7.8 MG/DL (8.5-10.1); CREATININE 0.88 MG/DL (0.50-1.00)
[2018-02-09] MEDS: INSULIN ASPART SUPPLEMENTAL SCALE SQ SCH ×4 (08:00→20:20)
[2018-02-09] MEDS: ASPIRIN 81 MG CHEW TAB CHEW SCH (08:05)
[2018-02-09] MEDS: FAMOTIDINE 20 MG TAB PO SCH ×2 (08:05→20:20)
[2018-02-09] MEDS: DOCUSATE SODIUM 50 MG/SENNA 8.6 MG TAB PO SCH ×2 (08:05→20:20)
[2018-02-09] MEDS: SODIUM CHLORIDE 0.9% FLUSH 10 ML FLUSH IV FLUSH SCH ×2 (08:05→20:20)
[2018-02-09] MEDS: CHLORHEXIDINE 0.12% (ORAL KIT) 15 ML CUP MT SCH ×2 (08:07→20:00)
[2018-02-09] MEDS: MIDAZOLAM 100 MG/NS 100 ML DRIP Premix IV PRN ×2 (08:32→20:20)
--- NOTE | 2018-02-09 11:04 | PD.CARD.PN ---
Subjective Subjective Remarks No further Afib Hemodynamically stable Objective Medications Current Medications Medications (Trade) Dose Ordered Sig/Tyler Route Start Time Stop Time Status Last Admin (NS Flush) 2 ml UNSCH PRN IV FLUSH 01/30/18 19:00 02/05/18 09:03 (NS Flush) 2 ml BID IV FLUSH 01/30/18 21:00 02/09/18 08:05 (Tylenol) 650 mg Q6H PRN PO 01/30/18 19:00 02/06/18 00:11 (Morphine Inj) 2 mg Q2H PRN IV PUSH 01/30/18 19:00 02/05/18 11:41 (Zofran Inj) 4 mg Q6H PRN IV PUSH 01/30/18 19:00 (Restoril) 15 mg HS PRN PO 01/30/18 19:00 Future Hold (Duoneb Neb) 1 ampule Q2HR NEB PRN INH 01/30/18 19:00 02/09/18 07:52 (Heparin Inj) 5,000 units Q8HR SQ 01/30/18 22:00 02/09/18 05:48 Miscellaneous Information 1 Q361D XX 01/30/18 19:00 01/30/18 22:56 (Chlorhexidine 2% Cloth) Taper DAILY@04 TOP 01/31/18 04:00 01/27/19 03:59 02/09/18 05:48 (Chlorhexidine 2% Cloth) 3 pack UNSCH PRN TOP 01/30/18 19:00 (Chiquis-Colace) 1 tab BID PO 01/30/18 21:00 02/09/18 08:05 (Milk Of Magnesia Liq) 30 ml Q12H PRN PO 01/30/18 19:00 (Senokot) 17.2 mg Q12H PRN PO 01/30/18 19:00 (Dulcolax Supp) 10 mg DAILY PRN RECTAL 01/30/18 19:00 02/07/18 05:30 (Lactulose Liq) 30 ml DAILY PRN PO 01/30/18 19:00 (Peridex 0.12% Liq) 15 ml BID@08,20 MT 01/31/18 08:00 02/09/18 08:07 Fentanyl Citrate 250 ml @ 20 mls/hr TITRATE PRN IV 01/30/18 23:45 02/08/18 22:27 Midazolam HCl 100 ml @ 5 mls/hr TITRATE PRN IV 01/30/18 23:45 02/09/18 08:32 Linezolid 300 ml @ 300 mls/hr Q12H IV 02/01/18 01:00 02/09/18 00:44 (D50w (Vial) Inj) 25 ml UNSCH PRN IV 02/02/18 15:15 (Glucagon Inj) 1 mg UNSCH PRN IM/SQ 02/02/18 15:15 Pharmacy Profile Note 0 ml @ 0 mls/hr UNSCH OTHER 02/02/18 15:15 (Pepcid) 10 mg BID PO 02/02/18 21:00 02/09/18 08:05 (Trandate Inj) 10 mg Q4H PRN IV PUSH 02/04/18 05:00 (Apresoline Inj) 20 mg Q4H PRN IV PUSH 02/04/18 05:00 02/05/18 11:41 (Aspirin Chew) 81 mg DAILY CHEW 02/06/18 09:00 02/09/18 08:05 (Cardizem) 30 mg Q6HR PO 02/05/18 12:30 02/09/18 05:47 Vancomycin HCl 1500 mg/Sodium Chloride 515 ml @ 250 mls/hr Q18H IV 02/07/18 06:00 02/08/18 18:41 Miscellaneous Information SPECIFIC LAB TO BE DRAWN:VANCOMYCIN TROUGH DATE TO... ONCE ONCE .XX 02/09/18 11:45 02/09/18 11:46 (NovoLOG SUPPLEMENTAL SCALE) 1 ACHS SLIDING SCALE SQ 02/07/18 12:00 02/08/18 21:16 Propofol 100 ml @ 3.345 mls/ hr TITRATE PRN IV 02/07/18 19:30 02/09/18 05:47 Ceftriaxone Sodium 2000 mg/ Sodium Chloride 100 ml @ 200 mls/hr Q24H IV 02/08/18 15:00 02/08/18 17:17 Vital Signs / I&O Vital Signs Date Time Temp Pulse Resp B/P (MAP) Pulse Ox O2 Delivery O2 Flow Rate FiO2 02/09/18 07:49 95 55 02/09/18 06:00 78 16 118/56 (76) 100 02/09/18 06:00 78 02/09/18 05:00 80 18 104/59 (74) 97 02/09/18 05:00 80 02/09/18 04:31 97 55 02/09/18 04:00 55 02/09/18 04:00 98.5 84 20 109/58 (75) 98 02/09/18 04:00 84 02/09/18 03:00 83 21 114/58 (76) 95 02/09/18 03:00 83 02/09/18 02:00 91 02/09/18 02:00 91 30 154/72 (99) 93 02/09/18 01:21 96 55 02/09/18 01:00 83 28 118/59 (78) 97 02/09/18 01:00 83 02/09/18 00:00 55 02/09/18 00:00 82 02/09/18 00:00 99.0 82 17 116/59 (78) 98 02/08/18 23:00 83 20 117/56 (76) 97 02/08/18 23:00 83 02/08/18 22:00 90 02/08/18 22:00 90 22 120/61 (80) 98 02/08/18 21:00 89 02/08/18 21:00 89 23 127/58 (81) 98 02/08/18 20:00 82 02/08/18 20:00 99 55 02/08/18 20:00 98.7 82 17 118/56 (76) 98 02/08/18 20:00 55 02/08/18 18:30 80 17 122/59 (80) 94 02/08/18 18:00 80 02/08/18 18:00 80 19 112/58 (76) 92 02/08/18 17:30 87 22 125/61 (82) 94 18 17:00 88 18 120/57 (78) 97 02/08/18 16:30 90 19 129/60 (83) 96 02/08/18 16:26 95 50 02/08/18 16:00 98.8 84 17 119/59 (79) 97 02/08/18 16:00 55 02/08/18 16:00 84 02/08/18 15:30 83 19 125/59 (81) 98 02/08/18 15:00 82 18 117/61 (79) 98 02/08/18 14:30 82 18 112/58 (76) 95 02/08/18 14:00 84 02/08/18 14:00 60 02/08/18 14:00 84 20 110/57 (74) 97 02/08/18 13:30 86 20 122/67 (85) 94 02/08/18 13:00 97.5 86 20 119/64 (82) 95 02/08/18 13:00 60 02/08/18 12:00 82 02/08/18 12:00 55 02/08/18 11:25 95 55 I/O 02/08/18 02/08/18 02/08/18 02/09/18 02/09/18 02/09/18 07:00 15:00 23:00 07:00 15:00 23:00 Intake Total 1983 ml 750 ml 1313.5 ml 768 ml Output Total 637 ml 883 ml 716 ml Balance 1346 ml 750 ml 430.5 ml 52 ml IV Total 1165 ml 750 ml 500.5 ml Tube Feeding 698 ml 693 ml 648 ml Tube Irrigant 120 ml Other 120 ml 120 ml Output Urine Total 600 ml 875 ml 700 ml Chest Tube Drainage Total 37 ml 8 ml 16 ml # Bowel Movements 0 0 0 Physical Exam GENERAL: Intubated and sedated SKIN: Warm and dry. HEAD: Atraumatic. Normocephalic. EYES: Pupils equal and round. No scleral icterus. No injection or drainage. ENT: No nasal bleeding or discharge. Mucous membranes pink and moist. NECK: Trachea midline. No JVD. CARDIOVASCULAR: Regular rate and rhythm. RESPIRATORY: No accessory muscle use. Decreased breath sounds bilaterally GASTROINTESTINAL: Abdomen soft, non-tender, nondistended. Hepatic and splenic margins not palpable. MUSCULOSKELETAL: Extremities without clubbing, cyanosis, or edema. No obvious deformities. NEUROLOGICAL: Intubated and sedated Laboratory Laboratory Tests Test 02/08/18 18:25 02/09/18 05:00 02/09/18 05:21 Blood Gas Puncture Site RT RADIAL RT RADIAL Blood Gas Patient Temperature 98.6 98.6 Blood Gas HCO3 32 mmol/L 32 mmol/L Blood Gas Base Excess 8.0 mmol/L 7.8 mmol/L Blood Gas Oxygen Saturation 92 % 95 % Arterial Blood pH 7.45 7.44 Arterial Blood Partial Pressure CO2 47 mmHg 49 mmHg Arterial Blood Partial Pressure O2 72 mmHg 88 mmHg Arterial Blood Oxygen Content 18.6 Vol % 12.1 Vol % Arterial Blood Carboxyhemoglobin 0.6 % 0.9 % Arterial Blood Methemoglobin 1.1 % 0.8 % Blood Gas Hemoglobin 14.4 G/DL 9.0 G/DL Oxygen Delivery Device VENTILATOR VENTILATOR Blood Gas Ventilator Setting [id number] SEE COMMENT Blood Gas Inspired Oxygen 55 % 55 % White Blood Count 21.2 TH/MM3 Red Blood Count 3.01 MIL/MM3 Hemoglobin 8.2 GM/DL Hematocrit 25.4 % Mean Corpuscular Volume 84.4 FL Mean Corpuscular Hemoglobin 27.4 PG Mean Corpuscular Hemoglobin Concent 32.4 % Red Cell Distribution Width 16.2 % Platelet Count 399 TH/MM3 Mean Platelet Volume 9.6 FL Neutrophils (%) (Auto) 92.2 % Lymphocytes (%) (Auto) 4.2 % Monocytes (%) (Auto) 2.6 % Eosinophils (%) (Auto) 0.8 % Basophils (%) (Auto) 0.2 % Neutrophils # (Auto) 19.5 TH/MM3 Lymphocytes # (Auto) 0.9 TH/MM3 Monocytes # (Auto) 0.5 TH/MM3 Eosinophils # (Auto) 0.2 TH/MM3 Basophils # (Auto) 0.0 TH/MM3 CBC Comment DIFF FINAL Differential Comment Blood Urea Nitrogen 29 MG/DL Creatinine 0.88 MG/DL Random Glucose 198 MG/DL Calcium Level 7.8 MG/DL Sodium Level 144 MEQ/L Potassium Level 4.3 MEQ/L Chloride Level 106 MEQ/L Carbon Dioxide Level 33.2 MEQ/L Anion Gap 5 MEQ/L Estimat Glomerular Filtration Rate 65 ML/MIN Assessment and Plan Problem List: (1) Bacteremia ICD Codes: R78.81 - Bacteremia (2) Bilateral pneumothoraces ICD Codes: J93.9 - Pneumothorax, unspecified (3) PNA (pneumonia) ICD Codes: J18.9 - Pneumonia, unspecified organism Status: Acute (4) Sepsis ICD Codes: A41.9 - Sepsis, unspecified organism Status: Acute Assessment and Plan 1) Bacteremia/Sepsis GRANT negative for endocarditis 2) Afib with RVR No further episodes Cardizem 30 QID CHADSVASc = 1 ASA 81mg daily 3) Bilateral pneumothoraces s/p chest tubes 4) Possible ARDS 5) Agree with Dr. Cooper, we do not have ECMO here, but no further benefit as we have no problems oxygenating her at this time 6) Will see PRN, call with questions Problem Qualifiers (1) PNA (pneumonia): Qualified Codes: J18.9 - Pneumonia, unspecified organism (2) Sepsis: Qualified Codes: A41.9 - Sepsis, unspecified organism Amaury Vázquez DO Feb 09, 2018 11:03
[2018-02-09] MEDS ORDERED: PHARMACY ORDERED LAB ONE (11:45)
[2018-02-09] MEDS: VANCOMYCIN INJ 1,500 MG in SODIUM CHLORID 0.9% 500 ML INJ 500 ML IV SCH (11:59)
[2018-02-09] MEDS: fentaNYL 2,500 MCG/NS 250 ML IV PRN (14:03)
[2018-02-09] MEDS: cefTRIAXone INJ 2,000 MG in SODIUM CHLORIDE 0.9% INJ 100 ML IV SCH (14:30)
[2018-02-09] MEDS ORDERED: FUROSEMIDE 40 MG/4 ML VIAL IV PUSH ONE (16:30)
--- NOTE | 2018-02-09 17:09 | HHI.CCPN ---
Subjective Remarks/Hospital Course 01/30: 62-year-old female presents for evaluation of increasing shortness of breath and chest pain. She reports 1 week of coughing 3 days of pain in her left chest which radiates to her back, which prompted the visit to the emergency room yesterday. She rates her pain a 6 out of 10. She reports fevers , chills, fatigue, mild nausea. She denies any abdominal pain, vomiting. Patient denies any significant past medical history. Symptom onset was gradual , symptom severity is severe, there are no alleviating factors. Patient states that she has been taking the azithromycin antibiotics that were prescribed to her. She denies any current or historical tobacco use. 01/31: Intubated at 1 AM this morning and placed on mechanical ventilation due to worsening respiratory distress. Currently sedated, orally intubated on mechanical ventilation. 02/01: Remains sedated, orally intubated on mechanical ventilation. Went into A. fib with RVR this morning. Loaded with amiodarone, started on amiodarone drip and given digoxin 0.5 mg IV 02/02: Remains sedated, orally intubated on mechanical ventilation. Right sided pigtail catheter in place with 1+ air leak. Converted to sinus rhythm overnight. Remains on amiodarone gtt. 02/03: Remains sedated, orally intubated on mechanical ventilation. 1+ air leak and right sided pigtail catheter. Tolerating tube feeds. Remains on amiodarone gtt. 02/04: Noted to have pneumothorax on the left side this morning on routine chest x -ray which appeared to be under tension. Right sided pigtail catheter placed by Dr. Peña with reexpansion of lung. Patient remains sedated, orally intubated on mechanical ventilation. 1+ airleak and bilateral chest tubes noted. 02/05: Afebrile. Persistent leukocytosis, bilateral chest tubes continue on wall suction. Chest x-ray pending this a.m.. Patient scheduled for GRANT today, discussed with Dr. Vázquez. Patient continues on amiodarone infusion with sinus rhythm. Postprocedure GRANT,this afternoon, the patient became extremely agitated, noted significant increase in subcu emphysema, peak pressures 50's, O2 saturation significantly decreased to 78-80 %. Stat chest x-ray performed patient was noted to have a significant right pneumothorax. 20 Faroese right chest tube placement emergently, with increase in O2 saturation decrease in peak inspiratory pressures. 02/06: Afebrile. Patient with persistent bilateral pneumothoraces, with diffuse bilateral infiltrates and massive SQ emphysema. O2 requirement significantly increased during the night, PIP 38-44. 28 F chest tubes were placed bilaterally with resolution of left pneumothorax and minimization of right pneumothorax, and improved oxygenation. 02/07: TMax 100.1 Chest tubes remain on suction. Resolution of pneumothoraces, continued extensive SQ emphysema. Persistent leukocytosis noted. FiO2 weaned to 50%. 02/08: Late entry note patient seen at 1250. Attempts at CPAP trials, unsuccessful this morning. FiO2 decreased 50%, with adequate oxygenation. 02/09: Afebrile. The patient was transitioned to CPAP trials with pressure support of 22/8. FiO2 currently at 55% continuing to wean. Patient noted with positive fluid balance Lasix 40 mg IV now, patient is initiated on Lasix 40 daily. Patient with positive air leak in chest tubes #1-28 Faroese right and #3 pigtail left, both at 2+. Sedation vacation initiated early this a.m. patient neurologically intact. Patient continues on moderate sedation for CPAP to maintain ventilator synchrony plan for transitioning to Precedex. Noted improvement with subcu emphysema. Extensive discussion with patient's daughter regarding a possibility of a tracheostomy if unsuccessful with ventilator weaning process. Objective Vital Signs Date Time Temp Pulse Resp B/P (MAP) Pulse Ox O2 Delivery O2 Flow Rate FiO2 02/09/18 16:00 55 02/09/18 12:00 87 02/09/18 11:59 98 02/09/18 06:00 16 118/56 (76) 02/09/18 04:00 98.5 02/06/18 03:50 Ventilator Intake and Output 02/09/18 02/09/18 02/09/18 07:59 15:59 23:59 Intake Total 768 ml Output Total 716 ml Balance 52 ml Result Diagram: 02/09/18 0500 02/09/18 0500 Other Results Laboratory Tests Test 02/08/18 18:25 02/09/18 05:21 Blood Gas Puncture Site RT RADIAL RT RADIAL Blood Gas Patient Temperature 98.6 98.6 Blood Gas HCO3 32 mmol/L (22-26) 32 mmol/L (22-26) Blood Gas Base Excess 8.0 mmol/L (-2-2) 7.8 mmol/L (-2-2) Blood Gas Oxygen Saturation 92 % (90-100) 95 % (90-100) Arterial Blood pH 7.45 (7.380-7.420) 7.44 (7.380-7.420) Arterial Blood Partial Pressure CO2 47 mmHg (38-42) 49 mmHg (38-42) Arterial Blood Partial Pressure O2 72 mmHg (61-120) 88 mmHg (61-120) Arterial Blood Oxygen Content 18.6 Vol % (12.0-20.0) 12.1 Vol % (12.0-20.0) Arterial Blood Carboxyhemoglobin 0.6 % (0-4) 0.9 % (0-4) Arterial Blood Methemoglobin 1.1 % (0-2) 0.8 % (0-2) Blood Gas Hemoglobin 14.4 G/DL (12.0-16.0) 9.0 G/DL (12.0-16.0) Oxygen Delivery Device VENTILATOR VENTILATOR Blood Gas Ventilator Setting [id number],IP32 SEE COMMENT Blood Gas Inspired Oxygen 55 % 55 % Imaging Last Impressions Chest X-Ray 02/08/18599 Signed Impressions: Service Date/Time: Thursday, February 08, 2018 05:02 - CONCLUSION: 1. Increased bilateral pulmonary parenchymal opacity left greater than right. Differential diagnosis includes infection, pulmonary edema, and ARDS. 2. Extensive bilateral subcutaneous emphysema. 3. Bilateral chest tubes unchanged. No gross evidence of pneumothorax. Dontrell Dow MD Chest CT 01/30/18 Signed Impressions: Service Date/Time: Tuesday, January 30, 2018 20:07 - CONCLUSION: 1. Dense consolidation throughout the left lingula and left lower lobe. There is more patchy areas of consolidation in the upper lobes bilaterally. This pattern is most suggestive of inflammatory/infectious processes. 2. Mild left pleural effusion. 3. Status post gastric surgery/bypass with a mild hiatal hernia. Michael Gabriel MD Last Impressions Chest X-Ray 02/06/18 06 Signed Impressions: Service Date/Time: Tuesday, February 06, 2018 02:53 - CONCLUSION: Diffuse bilateral infiltrates. Bilateral pneumothoraces. Massive subcutaneous emphysema Michael Holloway MD Chest CT 01/30/18 0000 Signed Impressions: Service Date/Time: Tuesday, January 30, 2018 20:07 - CONCLUSION: 1. Dense consolidation throughout the left lingula and left lower lobe. There is more patchy areas of consolidation in the upper lobes bilaterally. This pattern is most suggestive of inflammatory/infectious processes. 2. Mild left pleural effusion. 3. Status post gastric surgery/bypass with a mild hiatal hernia. Michael Gabriel MD Last Impressions Chest X-Ray 02/04/18 1700 Signed Impressions: Service Date/Time: Sunday, February 04, 2018 17:03 - CONCLUSION: Persistent 1.5 cm right pneumothorax with chest drainage catheter in place stop extensive diffuse bilateral subcutaneous emphysema, stable. Ilya Harris MD Chest CT 01/30/18 0000 Signed Impressions: Service Date/Time: Tuesday, January 30, 2018 20:07 - CONCLUSION: 1. Dense consolidation throughout the left lingula and left lower lobe. There is more patchy areas of consolidation in the upper lobes bilaterally. This pattern is most suggestive of inflammatory/infectious processes. 2. Mild left pleural effusion. 3. Status post gastric surgery/bypass with a mild hiatal hernia. Michael Gabriel MD Last 24 hours Impressions Chest X-Ray 01/30/18 1556 Signed Impressions: Service Date/Time: Tuesday, January 30, 2018 16:01 - CONCLUSION: 1. Bilateral airspace disease with significant consolidation in the left base. 2. Elevated left hemidiaphragm versus eventration. Ramon Blunt MD Chest CT 01/30/18 0000 Signed Impressions: Service Date/Time: Tuesday, January 30, 2018 20:07 - CONCLUSION: 1. Dense consolidation throughout the left lingula and left lower lobe. There is more patchy areas of consolidation in the upper lobes bilaterally. This pattern is most suggestive of inflammatory/infectious processes. 2. Mild left pleural effusion. 3. Status post gastric surgery/bypass with a mild hiatal hernia. Michael Gabriel MD Procedures 02/05- Right emergent 20 F chest tube placement 02/06: Left 28 Faroese chest tube placement, right chest tube replacement 28 Faroese Objective Remarks HEENT/ Neuro: Sedated, orally intubated, Pallor present, no icterus, tongue/ mucosa moist significant SQ emphysema Neck: No JVD Chest/Pulm: on mech vent, air entry decreased bilaterally at bases, scattered rhonchi bilaterally. Bilateral pigtail catheters insitu., and 28F chest tubes bilaterally to -40cm H20 CVS: S1-S2 regular, no murmur GI/abdomen: soft, nontender, bowel sounds hypoactive Neuro: RASS -2, currently on fentanyl and Versed infusions. Patient moving extremities 4 Extremities: warm bilaterally, 1+bilateral peripheral edema upper and lower extremities A/P Assessment and Plan Neuro: Neuro checks per ICU protocol Initiate daily sedation vacation Versed, propofol and fentanyl to maintain ventilator synchrony Plan transition to Precedex for ventilator synchrony upon initiation of successful CPAP trials Pulm: Acute Respiratory failure MRSA pneumonia MRSA bacteremia Sepsis Persistent leukocytosis COPD Persistent bilateral pneumothorax Post Influenza pneumonia? - Antibiotics per ID. On Zyvox. MRSA bacteremia persists from blood culture on 02/01. Dr. Singleton added IV vancomycin and consulted cardiology for GRANT to evaluate heart valves. -Repeat blood cultures per ID. - Bal culture/blood cultures growing MRSA -Legionella and strep pneumo antigen negative -Consulted ID for sepsis/pneumonia - Dr. Singleton following. - DuoNeb scheduled and when necessary - Titrated off IV steroids by 02/03 -Bilateral pigtail catheters in place with 1+ air leak, continue on suction -40 on right, -20 on left -02/06; chest x-ray diffuse bilateral infiltrates massive subcu emphysema bilateral pneumothoraces. Placement of 28 Faroese left chest tube, repeat placement of 20 Faroese chest tube with 28 Faroese chest tube -Possible recurrent pneumothoraces secondary to post influenza viral PNA -02/08 CXR significant subcu emphysema, no pneumothorax, chest tubes in place. Worsening opacity left greater than right. -Repeat chest x-ray in a.m. -02/09 CPAP trials initiated-on Versed 5 mg, propofol 10 mcgs, and fentanyl 100 mcgs, (PS 22 PEEP 8 FIO2 .55 ) Dr Pride present at bedside and okay with current initial settings. Renal: Acute kidney injury-resolved Dehydration-resolved - Maintain kendrick - Strict I's and O's - Monitor trend of creatinine and electrolytes. -02/08 Positive fluid balance- Lasix 40 mg IV 1 now and 40 mg daily Cardiovascular: A. fib with RVR (converted to RSR 02/02) -02/05 amiodarone infusion discontinued. -Digoxin 0.5 mg IV x 1 on 02/01. - 02/05 GRANT -no valvular vegetations. EF 55-60%, trace MVR, mild TVR, PAP 35 GI -Tube feeds Jevity 1.5 60 cc/hr at goal, minimal residual -Bowel regimen-last BM 02/08 -Zofran for nausea Endocrine: Hyperglycemia Medium scale sliding scale insulin dosing Glucose monitoring per ICU protocol DVT GI prophylaxis - Teds SCDs - Subcutaneous heparin - Pepcid Lines: Right subclavian central line inserted 02/01. Peripheral IVs 2 Critical Care: my billing statement This patient remains critically ill with one or more organ systems which are or may become a threat to life. I have spent in excess of 45 minutes discontinuously in the care and management of this patient. This time is exclusive of procedures, and includes, but is not limited to, evaluation of the patient, review of the medical record, discussions with family, consultants, nursing staff, or respiratory therapy, and documentation in the medical record. D/W RAKING MACHINE OPERATOR at bedside (Katelynn) and Physician Dilcia Zhong MD Feb 09, 2018 17:09
--- NOTE | 2018-02-09 18:05 | HHI.PR ---
Subjective Remarks 62 YO Female with VDRF,PTx, 4 Chest tubes 2 chest tubes have airleak Sedated with Versed, Diprivan and Fentanyl Weaned to CPAP,26/06, Fi02 55% Objective Vital Signs Vital Signs Date Time Temp Pulse Resp B/P (MAP) Pulse Ox O2 Delivery O2 Flow Rate FiO2 02/09/18 17:40 94 55 02/09/18 17:35 55 02/09/18 16:40 55 02/09/18 16:23 95 55 02/09/18 16:00 55 02/09/18 16:00 86 02/09/18 16:00 99.1 86 25 127/60 (82) 94 02/09/18 14:00 79 02/09/18 12:00 99.5 87 24 140/65 (90) 98 02/09/18 12:00 55 02/09/18 12:00 87 02/09/18 11:59 98 55 02/09/18 10:00 79 02/09/18 08:00 55 02/09/18 08:00 100.5 76 19 128/61 (83) 100 02/09/18 08:00 76 02/09/18 07:49 95 55 02/09/18 06:00 78 16 118/56 (76) 100 02/09/18 06:00 78 02/09/18 05:00 80 18 104/59 (74) 97 02/09/18 05:00 80 02/09/18 04:31 97 55 02/09/18 04:00 55 02/09/18 04:00 98.5 84 20 109/58 (75) 98 02/09/18 04:00 84 02/09/18 03:00 83 21 114/58 (76) 95 02/09/18 03:00 83 02/09/18 02:00 91 02/09/18 02:00 91 30 154/72 (99) 93 02/09/18 01:21 96 55 02/09/18 01:00 83 28 118/59 (78) 97 02/09/18 01:00 83 02/09/18 00:00 55 02/09/18 00:00 82 02/09/18 00:00 99.0 82 17 116/59 (78) 98 02/08/18 23:00 83 20 117/56 (76) 97 02/08/18 23:00 83 02/08/18 22:00 90 02/08/18 22:00 90 22 120/61 (80) 98 02/08/18 21:00 89 02/08/18 21:00 89 23 127/58 (81) 98 02/08/18 20:00 82 02/08/18 20:00 99 55 02/08/18 20:00 98.7 82 17 118/56 (76) 98 02/08/18 20:00 55 02/08/18 18:30 80 17 122/59 (80) 94 I/O 02/08/18 02/08/18 02/08/18 02/09/18 02/09/18 02/09/18 07:00 15:00 23:00 07:00 15:00 23:00 Intake Total 1983 ml 750 ml 1313.5 ml 768 ml 515 ml 400 ml Output Total 637 ml 883 ml 716 ml Balance 1346 ml 750 ml 430.5 ml 52 ml 515 ml 400 ml IV Total 1165 ml 750 ml 500.5 ml 515 ml 400 ml Tube Feeding 698 ml 693 ml 648 ml Tube Irrigant 120 ml Other 120 ml 120 ml Output Urine Total 600 ml 875 ml 700 ml Chest Tube Drainage Total 37 ml 8 ml 16 ml # Bowel Movements 0 0 0 Result Diagram: 02/09/18 0500 02/09/18 0500 Objective Remarks GENERAL: WBWN Female, on Vent, sedated SKIN: Warm and dry. HEAD: Normocephalic. EYES: No scleral icterus. No injection or drainage. NECK: Supple, trachea midline. No JVD or lymphadenopathy. CARDIOVASCULAR: Regular rate and rhythm without murmurs, gallops, or rubs. RESPIRATORY: Breath sounds equal bilaterally. No accessory muscle use. [address] SQ Emphysema. GASTROINTESTINAL: Abdomen soft, non-tender, nondistended. MUSCULOSKELETAL: No cyanosis, or edema. BACK: Nontender without obvious deformity. No CVA tenderness. A/P Assessment and Plan VDRF Post Influenza Pn MRSA PTX PLAN: LIZETH Cooper CPAP with 26/06 as pt tolertaes Cont Abx TF Sedation with Diprivan, Versed and Fentanyl. Dru Pride MD Feb 09, 2018 18:05
[2018-02-10] VITALS (18 sets, daily range): BP systolic 105–180; BP diastolic 56–79; PULSE 80–103; RESP 16–30; TEMP 98.6–100.4; O2SAT 94–100
[2018-02-10] MEDS: LINEZOLID 600 MG PREMIX 300 ML IV SCH ×2 (00:54→16:44)
[2018-02-10] MEDS: DILTIAZEM HCL 30 MG TAB PO SCH ×4 (00:54→16:44)
[2018-02-10] MEDS: RESP: ALBUTEROL 2.5 MG/IPRATROPIUM 0.5 MG NEB (PRN) INH ×3 (03:17→19:51)
[2018-02-10] MEDS: CHLORHEXIDINE GLUCONATE 2 % 1 PACK (2 CLOTHS) TOP SCH (04:00)
[2018-02-10] MEDS: PROPOFOL 1000 MG/100 ML IV PRN ×3 (04:05→16:51)
--- NOTE | 2018-02-10 04:46 | RADRPT ---
EXAM DATE/TIME: 02/10/2018 04:08 [facility] COMPARISON: CHEST SINGLE AP, February 08, 2018, 5:02. INDICATIONS : Shortness of breath, possible pulmonary disease. MEDICAL HISTORY : Sepsis. SURGICAL HISTORY : None. ENCOUNTER: Subsequent ACUITY: 2 weeks PAIN SCORE: Non-responsive. LOCATION: Bilateral chest FINDINGS: 2 AP views of the chest. Endotracheal tube a nasogastric tube, left-sided chest tube, and 2 right-jose a ed chest tubes remain in place. Right subclavian central venous catheter also remains in place. Exten sive subcutaneous emphysema is again seen bilaterally. Bilateral lower lobe zone predominant pulmonar y parenchymal opacity unchanged. No evidence of pleural effusion or pneumothorax. CONCLUSION: No significant neural change. Extensive bilateral subcutaneous emphysema. Bilateral chest tubes remai n in place. No gross evidence of pneumothorax. Prominent bilateral pulmonary parenchymal opacity. Dontrell Dow MD on February 10, 2018 at 4:43 Board Certified Radiologist. This report was verified electronically.
[2018-02-10] MEDS: HEPARIN SODIUM - SQ 10,000 UNITS/ML VIAL SQ SCH ×3 (06:00→20:06)
[2018-02-10] MEDS: CHLORHEXIDINE 0.12% (ORAL KIT) 15 ML CUP MT SCH ×2 (08:07→20:05)
[2018-02-10] MEDS: DOCUSATE SODIUM 50 MG/SENNA 8.6 MG TAB PO SCH ×2 (08:07→20:06)
[2018-02-10] MEDS: INSULIN ASPART SUPPLEMENTAL SCALE SQ SCH ×4 (08:07→20:06)
[2018-02-10] MEDS: FAMOTIDINE 20 MG TAB PO SCH ×2 (08:08→20:06)
[2018-02-10] MEDS: FUROSEMIDE 40 MG/4 ML VIAL IV PUSH SCH (08:08)
[2018-02-10] MEDS: SODIUM CHLORIDE 0.9% FLUSH 10 ML FLUSH IV FLUSH SCH ×2 (08:08→20:06)
[2018-02-10] MEDS: ASPIRIN 81 MG CHEW TAB CHEW SCH (08:08)
--- NOTE | 2018-02-10 09:12 | HHI.CCPN ---
Subjective Remarks/Hospital Course 01/30: 62-year-old female presents for evaluation of increasing shortness of breath and chest pain. She reports 1 week of coughing 3 days of pain in her left chest which radiates to her back, which prompted the visit to the emergency room yesterday. She rates her pain a 6 out of 10. She reports fevers , chills, fatigue, mild nausea. She denies any abdominal pain, vomiting. Patient denies any significant past medical history. Symptom onset was gradual , symptom severity is severe, there are no alleviating factors. Patient states that she has been taking the azithromycin antibiotics that were prescribed to her. She denies any current or historical tobacco use. 01/31: Intubated at 1 AM this morning and placed on mechanical ventilation due to worsening respiratory distress. Currently sedated, orally intubated on mechanical ventilation. 02/01: Remains sedated, orally intubated on mechanical ventilation. Went into A. fib with RVR this morning. Loaded with amiodarone, started on amiodarone drip and given digoxin 0.5 mg IV 02/02: Remains sedated, orally intubated on mechanical ventilation. Right sided pigtail catheter in place with 1+ air leak. Converted to sinus rhythm overnight. Remains on amiodarone gtt. 02/03: Remains sedated, orally intubated on mechanical ventilation. 1+ air leak and right sided pigtail catheter. Tolerating tube feeds. Remains on amiodarone gtt. 02/04: Noted to have pneumothorax on the left side this morning on routine chest x -ray which appeared to be under tension. Right sided pigtail catheter placed by Dr. Peña with reexpansion of lung. Patient remains sedated, orally intubated on mechanical ventilation. 1+ airleak and bilateral chest tubes noted. 02/05: Afebrile. Persistent leukocytosis, bilateral chest tubes continue on wall suction. Chest x-ray pending this a.m.. Patient scheduled for GRANT today, discussed with Dr. Vázquez. Patient continues on amiodarone infusion with sinus rhythm. Postprocedure GRANT,this afternoon, the patient became extremely agitated, noted significant increase in subcu emphysema, peak pressures 50's, O2 saturation significantly decreased to 78-80 %. Stat chest x-ray performed patient was noted to have a significant right pneumothorax. 20 Algerian right chest tube placement emergently, with increase in O2 saturation decrease in peak inspiratory pressures. 02/06: Afebrile. Patient with persistent bilateral pneumothoraces, with diffuse bilateral infiltrates and massive SQ emphysema. O2 requirement significantly increased during the night, PIP 38-44. 28 F chest tubes were placed bilaterally with resolution of left pneumothorax and minimization of right pneumothorax, and improved oxygenation. 02/07: TMax 100.1 Chest tubes remain on suction. Resolution of pneumothoraces, continued extensive SQ emphysema. Persistent leukocytosis noted. FiO2 weaned to 50%. 02/08: Late entry note patient seen at 1250. Attempts at CPAP trials, unsuccessful this morning. FiO2 decreased 50%, with adequate oxygenation. 02/09: Afebrile. The patient was transitioned to CPAP trials with pressure support of 22/8. FiO2 currently at 55% continuing to wean. Patient noted with positive fluid balance Lasix 40 mg IV now, patient is initiated on Lasix 40 daily. Patient with positive air leak in chest tubes #1-28 Algerian right and #3 pigtail left, both at 2+. Sedation vacation initiated early this a.m. patient neurologically intact. Patient continues on moderate sedation for CPAP to maintain ventilator synchrony plan for transitioning to Precedex. Noted improvement with subcu emphysema. Extensive discussion with patient's daughter regarding a possibility of a tracheostomy if unsuccessful with ventilator weaning process. 02/10: Subcutaneous emphysema has worsened overnight per RN who took care of the patient yesterday, now extending to the upper chest left neck and to the left side of the face including left eyelids. No increase in FiO2 requirement currently on 55%. I have reduced inspiratory pressure from 32 to 28. FiO2 reduced to 50%. Will check a repeat chest x-ray in afternoon if needed. Will request CT surgical evaluation for persistent subcutaneous emphysema despite 2 chest tubes bilaterally Objective Vital Signs Date Time Temp Pulse Resp B/P (MAP) Pulse Ox O2 Delivery O2 Flow Rate FiO2 02/10/18 08:54 94 50 02/10/18 08:00 99.4 87 16 142/62 (88) Intake and Output 02/10/18 02/10/18 02/11/18 08:00 16:00 00:00 Intake Total 1486 ml Output Total 1238 ml Balance 248 ml Result Diagram: 02/09/18 0500 02/09/18 0500 Imaging Last Impressions Chest X-Ray 02/08/18 0600 Signed Impressions: Service Date/Time: Thursday, February 08, 2018 05:02 - CONCLUSION: 1. Increased bilateral pulmonary parenchymal opacity left greater than right. Differential diagnosis includes infection, pulmonary edema, and ARDS. 2. Extensive bilateral subcutaneous emphysema. 3. Bilateral chest tubes unchanged. No gross evidence of pneumothorax. Dontrell Dow MD Chest CT 01/30/18 0000 Signed Impressions: Service Date/Time: Tuesday, January 30, 2018 20:07 - CONCLUSION: 1. Dense consolidation throughout the left lingula and left lower lobe. There is more patchy areas of consolidation in the upper lobes bilaterally. This pattern is most suggestive of inflammatory/infectious processes. 2. Mild left pleural effusion. 3. Status post gastric surgery/bypass with a mild hiatal hernia. Michael Gabriel MD Last Impressions Chest X-Ray 02/06/18 0600 Signed Impressions: Service Date/Time: Tuesday, February 06, 2018 02:53 - CONCLUSION: Diffuse bilateral infiltrates. Bilateral pneumothoraces. Massive subcutaneous emphysema Michael Holloway MD Chest CT 01/30/18 0000 Signed Impressions: Service Date/Time: Tuesday, January 30, 2018 20:07 - CONCLUSION: 1. Dense consolidation throughout the left lingula and left lower lobe. There is more patchy areas of consolidation in the upper lobes bilaterally. This pattern is most suggestive of inflammatory/infectious processes. 2. Mild left pleural effusion. 3. Status post gastric surgery/bypass with a mild hiatal hernia. Michael Gabriel MD Last Impressions Chest X-Ray 02/04/18 1700 Signed Impressions: Service Date/Time: Sunday, February 04, 2018 17:03 - CONCLUSION: Persistent 1.5 cm right pneumothorax with chest drainage catheter in place stop extensive diffuse bilateral subcutaneous emphysema, stable. Iyla Harris MD Chest CT 01/30/18 0000 Signed Impressions: Service Date/Time: Tuesday, January 30, 2018 20:07 - CONCLUSION: 1. Dense consolidation throughout the left lingula and left lower lobe. There is more patchy areas of consolidation in the upper lobes bilaterally. This pattern is most suggestive of inflammatory/infectious processes. 2. Mild left pleural effusion. 3. Status post gastric surgery/bypass with a mild hiatal hernia. Michael Gabriel MD Last 24 hours Impressions Chest X-Ray 01/30/18 1556 Signed Impressions: Service Date/Time: Tuesday, January 30, 2018 16:01 - CONCLUSION: 1. Bilateral airspace disease with significant consolidation in the left base. 2. Elevated left hemidiaphragm versus eventration. Ramon Blnut MD Chest CT 01/30/18 0000 Signed Impressions: Service Date/Time: Tuesday, January 30, 2018 20:07 - CONCLUSION: 1. Dense consolidation throughout the left lingula and left lower lobe. There is more patchy areas of consolidation in the upper lobes bilaterally. This pattern is most suggestive of inflammatory/infectious processes. 2. Mild left pleural effusion. 3. Status post gastric surgery/bypass with a mild hiatal hernia. Michael Gabriel MD Procedures 02/05- Right emergent 20 F chest tube placement 02/06: Left 28 Algerian chest tube placement, right chest tube replacement 28 Algerian Objective Remarks HEENT/ Neuro: Sedated, orally intubated, Pallor present, no icterus, tongue/ mucosa moist significant SQ emphysema. Left side of the face eyelid has significant subcu emphysema Neck: No JVD. Left side of the neck with significant subcutaneous emphysema Chest/Pulm: on mech vent, air entry decreased bilaterally at bases, scattered rhonchi bilaterally. Bilateral pigtail catheters insitu., and 28F chest tubes bilaterally to -40cm H20. Upper chest has significant subcu air CVS: S1-S2 regular, no murmur GI/abdomen: soft, nontender, bowel sounds hypoactive Neuro: RASS -2, currently on fentanyl, propofol and Versed infusions. Patient moving extremities 4 Extremities: warm bilaterally, 1+bilateral peripheral edema upper and lower extremities A/P Assessment and Plan Neuro: Neuro checks per ICU protocol Initiate daily sedation vacation, if tolerated Versed, propofol and fentanyl to maintain ventilator synchrony. Attempt weaning off propofol Pulm: Acute hypoxemic respiratory failure MRSA pneumonia MRSA bacteremia COPD Persistent bilateral pneumothorax, significant subcutaneous emphysema Post Influenza pneumonia? - Antibiotics per ID. On Zyvox. MRSA bacteremia persists from blood culture on 02/01. Dr. Singleton added IV vancomycin and consulted cardiology for GRANT to evaluate heart valves. -Repeat blood cultures per ID. Bal culture/blood cultures growing MRSA. Legionella and strep pneumo antigen negative -Consulted ID for sepsis/pneumonia - Dr. Areli following. - DuoNeb scheduled and when necessary - Titrated off IV steroids by 02/03 -Bilateral pigtail catheters in place with 1+ air leak, continue on suction -40 on right, -20 on left -02/06; chest x-ray diffuse bilateral infiltrates massive subcu emphysema bilateral pneumothoraces. Placement of 28 Algerian left chest tube, replacement of 20 Algerian chest tube with 28 Algerian chest tube -Possible recurrent pneumothoraces secondary to post influenza PNA -02/08 CXR significant subcu emphysema, no pneumothorax, chest tubes in place. Worsening opacity left greater than right. -Repeat chest x-ray in a.m. -02/10 patient's vent settings are too high with FiO2 55% and high Pinsp setting to initiate CPAP trials -Request CT surgical evaluation on Sunday for significant subcutaneous emphysema despite bilateral chest tubes -Tracheostomy once the subcu emphysema better controlled and FiO2 down to 45% or less Renal: Acute kidney injury-resolved Dehydration-resolved - Maintain kendrick - Strict I's and O's - Monitor trend of creatinine and electrolytes. - Positive fluid balance- Lasix 40 mg daily Cardiovascular: A. fib with RVR (converted to NSR 02/02) -02/05 amiodarone infusion discontinued. -Digoxin 0.5 mg IV x 1 on 02/01. - 02/05 GRANT -no valvular vegetations. EF 55-60%, trace MVR, mild TVR, PAP 35 GI -Tube feeds Jevity 1.5 60 cc/hr at goal, minimal residual -Bowel regimen-last BM 02/08 -Zofran for nausea Endocrine: Hyperglycemia Medium scale sliding scale insulin dosing Glucose monitoring per ICU protocol DVT GI prophylaxis - Teds SCDs - Subcutaneous heparin - Pepcid Lines: Right subclavian central line inserted 02/01. Peripheral IVs 2 Critical Care time 40 MIN my billing statement This patient remains critically ill with one or more organ systems which are or may become a threat to life. I have spent in excess of 40 minutes discontinuously in the care and management of this patient. This time is exclusive of procedures, and includes, but is not limited to, evaluation of the patient, review of the medical record, discussions with family, consultants, nursing staff, or respiratory therapy, and documentation in the medical record. D/W GIN OPERATOR at bedside (Kelin) Sarita Rodriguez MD Feb 10, 2018 09:12
[2018-02-10] MEDS: VANCOMYCIN INJ 1,500 MG in SODIUM CHLORID 0.9% 500 ML INJ 500 ML IV SCH (10:55)
[2018-02-10] MEDS: fentaNYL 2,500 MCG/NS 250 ML IV PRN (11:15)
--- NOTE | 2018-02-10 11:34 | HHI.IDPN ---
Subjective Subjective Remarks 62 yo female w/o significant past medicxal history presented 2 days ago with chest pain, CXR showed L lung basilar infiltrate shew was discharged with abx ( azithromycin) SHe came back with worsning SOB and was admitted and intubated, placed on vent She was sarted on broad spectrum abx: initially azithro, zosyn, vanco She grew out MRSA in 2/2 blood cultures, sputum with GPC in clusters imaging studies showed progression of infiltrates Vancomycin was switched to zyvox WBC elevated with 23 % of bands flu/ pneumococcus/ legionella negative Overnight events reviewed. Remains in the ICU. Intubated has 4 CTs (2 pigtails superiorly bilaterally and 2 large bores bilaterally) Has Right face subq emphysema involving face and right eye now. Low grade temps 100.5 F No fever Has a rash on abdomen close to site of CT tapes. No other rash noted. No diarrhea Antibiotics Ceftriaxone Iv Vanco IV Zyvox IV Lines Line sites with no e.o infection Past Medical History Gastric bypass Tonsillectomy Allergies: Coded Allergies: No Known Allergies (Unverified , 01/30/18) Objective . Vital Signs Date Time Temp Pulse Resp B/P (MAP) Pulse Ox O2 Delivery O2 Flow Rate FiO2 02/10/18 10:00 85 02/10/18 08:54 94 50 02/10/18 08:00 87 02/10/18 08:00 99.4 87 16 142/62 (88) 100 02/10/18 08:00 55 02/10/18 06:00 91 02/10/18 04:38 98 55 02/10/18 04:00 103 02/10/18 04:00 55 02/10/18 04:00 100.4 103 29 153/69 (97) 95 02/10/18 02:00 94 02/10/18 00:00 55 02/10/18 00:00 99.7 97 20 127/57 (80) 96 02/10/18 00:00 97 02/09/18 23:18 97 55 02/09/18 22:00 90 02/09/18 20:00 99.6 88 20 123/61 (81) 99 02/09/18 20:00 55 02/09/18 20:00 88 02/09/18 18:00 84 02/09/18 17:40 94 55 02/09/18 17:35 55 02/09/18 16:40 55 02/09/18 16:23 95 55 02/09/18 16:00 55 02/09/18 16:00 86 02/09/18 16:00 99.1 86 25 127/60 (82) 94 02/09/18 14:00 79 02/09/18 12:00 99.5 87 24 140/65 (90) 98 02/09/18 12:00 55 02/09/18 12:00 87 02/09/18 11:59 98 55 . Laboratory Tests Test 02/09/18 05:00 White Blood Count 21.2 TH/MM3 Red Blood Count 3.01 MIL/MM3 Hemoglobin 8.2 GM/DL Hematocrit 25.4 % Mean Corpuscular Volume 84.4 FL Mean Corpuscular Hemoglobin 27.4 PG Mean Corpuscular Hemoglobin Concent 32.4 % Red Cell Distribution Width 16.2 % Platelet Count 399 TH/MM3 Mean Platelet Volume 9.6 FL Neutrophils (%) (Auto) 92.2 % Lymphocytes (%) (Auto) 4.2 % Monocytes (%) (Auto) 2.6 % Eosinophils (%) (Auto) 0.8 % Basophils (%) (Auto) 0.2 % Neutrophils # (Auto) 19.5 TH/MM3 Lymphocytes # (Auto) 0.9 TH/MM3 Monocytes # (Auto) 0.5 TH/MM3 Eosinophils # (Auto) 0.2 TH/MM3 Basophils # (Auto) 0.0 TH/MM3 CBC Comment DIFF FINAL Differential Comment Laboratory Tests Test 02/09/18 05:00 Blood Urea Nitrogen 29 MG/DL Creatinine 0.88 MG/DL Random Glucose 198 MG/DL Calcium Level 7.8 MG/DL Sodium Level 144 MEQ/L Potassium Level 4.3 MEQ/L Chloride Level 106 MEQ/L Carbon Dioxide Level 33.2 MEQ/L Anion Gap 5 MEQ/L Estimat Glomerular Filtration Rate 65 ML/MIN Imaging Last Impressions Chest X-Ray 02/08/18 0600 Signed Impressions: Service Date/Time: Thursday, February 08, 2018 05:02 - CONCLUSION: 1. Increased bilateral pulmonary parenchymal opacity left greater than right. Differential diagnosis includes infection, pulmonary edema, and ARDS. 2. Extensive bilateral subcutaneous emphysema. 3. Bilateral chest tubes unchanged. No gross evidence of pneumothorax. Dontrell Dow MD Chest CT 01/30/18 0000 Signed Impressions: Service Date/Time: Tuesday, January 30, 2018 20:07 - CONCLUSION: 1. Dense consolidation throughout the left lingula and left lower lobe. There is more patchy areas of consolidation in the upper lobes bilaterally. This pattern is most suggestive of inflammatory/infectious processes. 2. Mild left pleural effusion. 3. Status post gastric surgery/bypass with a mild hiatal hernia. Michael Gabriel MD Physical Exam CONSTITUTIONAL/GENERAL: Opens eyes when stimulated, on the vent, NAD SKIN: No jaundice, rashes, or lesions. Ecchymoses on upper extremities. Skin temperature appropriate. generalized edema Massive Sq emphysema HEAD: Atraumatic. Normocephalic. EYES: Pupils equal and round and reactive. No scleral icterus. No injection or drainage. ENT: No nasal discharge, orally intubated NECK: Supple, nontender. CARDIOVASCULAR: Regular rate and rhythm without murmurs, gallops, or rubs. RESPIRATORY/CHEST: Symmetric, unlabored respirations. Rhonchi b/l. CTx2 on R and CT x 2 on the L GASTROINTESTINAL: Abdomen soft, nondistended. No organomegaly. Mild grimacing during palpation, not guarding. GENITOURINARY: Without palpable bladder distension. Alexandre catheter in place. MUSCULOSKELETAL: Extremities without clubbing, cyanosis, + 3 diffuse edema. . NEUROLOGICAL: more awake today PSYCHIATRIC: unable to assess LINE: no evidence of infection Assessment & Plan Remarks IMPRESSION MRSA PNA Multiple b/l pneumothoraces ? postinfluenza PNA Loculated hydropneumothorax: ? empyema Acute VDRF High grade , sustained MRSA bacteremia GRANT negative Sevrte leukocytosis and bandemia New PNA, Enterobacter (panS) along with MRSA PLAN Continue zyvox. Monitor platelets and HCO3. Continue vancomycin IV (target 15-20) for extensive MRSA pneumonia. May consider discontinuation of Vanco IV if no concern for endocarditis. GRANT is negative. Will dw Primary ID . continue Rocephin for Enterobacter Follow cultures follow clinically. to resume care in am. Jennifer Choe MD Feb 10, 2018 11:34
--- NOTE | 2018-02-10 15:22 | RADRPT ---
EXAM DATE/TIME: 02/10/2018 14:52 [facility] COMPARISON: No previous studies available for comparison. INDICATIONS : Respiratory distress. RADIATION DOSE: 18.11 CTDIvol (mGy) ; Patient body habitus MEDICAL HISTORY : Non-responsive. SURGICAL HISTORY : Tubal ligation. Gastric bypass. ENCOUNTER: Initial ACUITY: 1 day PAIN SCALE: Non-responsive LOCATION: Bilateral chest TECHNIQUE: Volumetric scanning of the chest was performed. Using automated exposure control and adjustment of t he mA and/or kV according to patient size, radiation dose was kept as low as reasonably achievable to obtain optimal diagnostic quality images. DICOM format image data is available electronically for r eview and comparison. Follow-up recommendations for detected pulmonary nodules are based at a minimum on nodule size and pa tient risk factors according to Fleischner Society Guidelines. FINDINGS: Comparison is January 30 pain endotracheal tip is at the thiago. Bilateral chest tubes are present, 2 o n the right and 2 on the left one of which is a smaller caliber chest tube. On the left side there is a loculated hydropneumothorax in the left anterior chest which is not curre ntly drained by the left-sided chest tubes which on a different location more posteriorly and mediall y. There is dense consolidation at the left lung base with several areas of cavitation. On the right side there are multiple areas of consolidation and cavitation, largest measuring about 8 .5 cm in the posterior segment right upper lobe. There is also consolidation and cavitation in the mi ddle lobe and lower lobe. Lung disease has significantly worsened since comparison from January 30. There is extensive subcutaneous air bilaterally. There is a tiny right-sided pneumothorax. Right central line is in the right brachiocephalic vein. Nasogastric tube seen entering stomach. Prev ious gastric bypass surgery. Multiple gallstones. CONCLUSION: 1. Loculated hydropneumothorax in the left anterior chest not currently drained by chest tube. 2. Multifocal areas of dense consolidation and cavitation in both lungs but significantly worse on e right side with considerable progression since January 30 comparison. Primary differential diagnosis is infection or septic embolic disease. 3. Extensive subcutaneous air has developed bilaterally. There is a small right pneumothorax. Everett Ng MD on February 10, 2018 at 15:13 Board Certified Radiologist. This report was verified electronically.
--- NOTE | 2018-02-10 15:25 | RADRPT ---
EXAM DATE/TIME: 02/10/2018 14:57 [facility] COMPARISON: No previous studies available for comparison. INDICATIONS : Respiratory distress. RADIATION DOSE: 52.82 CTDIvol (mGy) MEDICAL HISTORY : Non-responsive. SURGICAL HISTORY : Tubal ligation. Gastric bypass. ENCOUNTER: Initial ACUITY: 1 day PAIN SCORE: Non-responsive LOCATION: Bilateral neck TECHNIQUE: Volumetric scanning of the neck was performed. Using automated exposure control and adjustment of th e mA and/or kV according to patient size, radiation dose was kept as low as reasonably achievable to obtain optimal diagnostic quality images. DICOM format image data is available electronically for re view and comparison. FINDINGS: Subcutaneous air dissects into the neck bilaterally, worse on the left side. Patient is intubated and NG tube is present. No abnormal fluid collections are seen. There is mucosal thickening and partial opacification of the sphenoid sinus and several ethmoid air c ells as well as left-sided maxillary sinus thickening. Also partial fluid opacification of the mastoi ds. No pathologically enlarged lymph nodes are seen in the neck. CONCLUSION: 1. Extensive subcutaneous edema in the neck which has dissected cephalad from the chest and is worse on the left side. 2. Support apparatus as above. See chest CT report for evaluation of lungs. There is cavitary lung di sease. No adenopathy. Everett Ng MD on February 10, 2018 at 15:20 Board Certified Radiologist. This report was verified electronically.
[2018-02-10] MEDS: cefTRIAXone INJ 2,000 MG in SODIUM CHLORIDE 0.9% INJ 100 ML IV SCH (16:44)
[2018-02-10] MEDS: MIDAZOLAM 100 MG/NS 100 ML DRIP Premix IV PRN (16:50)
--- NOTE | 2018-02-10 19:12 | HHI.PR ---
Subjective Remarks 62 YO Female with VDRF,PTx, 4 Chest tubes 2 chest tubes have airleak Sedated with Versed, Diprivan and Fentanyl On Vent CT chest loculated fluid collection not being drained by exising chest tubes Objective Vital Signs Vital Signs Date Time Temp Pulse Resp B/P (MAP) Pulse Ox O2 Delivery O2 Flow Rate FiO2 02/10/18 18:00 86 02/10/18 16:00 55 02/10/18 16:00 80 02/10/18 16:00 98.6 80 20 105/58 (74) 98 02/10/18 15:23 97 55 02/10/18 14:00 87 02/10/18 12:16 100 55 02/10/18 12:00 99.2 83 21 111/56 (74) 100 02/10/18 12:00 83 02/10/18 12:00 55 02/10/18 10:00 85 02/10/18 08:54 94 50 02/10/18 08:00 87 02/10/18 08:00 99.4 87 16 142/62 (88) 100 02/10/18 08:00 55 02/10/18 06:00 91 02/10/18 04:38 98 55 02/10/18 04:00 103 02/10/18 04:00 55 02/10/18 04:00 100.4 103 29 153/69 (97) 95 02/10/18 02:00 94 02/10/18 00:00 55 02/10/18 00:00 99.7 97 20 127/57 (80) 96 02/10/18 00:00 97 02/09/18 23:18 97 55 02/09/18 22:00 90 02/09/18 20:00 99.6 88 20 123/61 (81) 99 02/09/18 20:00 55 02/09/18 20:00 88 I/O 02/09/18 02/09/18 02/09/18 02/10/18 02/10/18 02/10/18 07:00 15:00 23:00 07:00 15:00 23:00 Intake Total 768 ml 515 ml 1220 ml 1486 ml 350 ml 1360 ml Output Total 716 ml 1720 ml 1238 ml 1750 ml Balance 52 ml 515 ml -500 ml 248 ml 350 ml -390 ml IV Total 515 ml 500 ml 300 ml 350 ml 815 ml Tube Feeding 648 ml 660 ml 1186 ml 545 ml Other 120 ml 60 ml Output Urine Total 700 ml 1700 ml 1100 ml 1600 ml Chest Tube Drainage Total 16 ml 20 ml 138 ml 150 ml # Bowel Movements 0 0 Result Diagram: 02/09/18 0500 02/09/18 0500 Objective Remarks GENERAL: WBWN Female, on Vent, sedated SKIN: Warm and dry. HEAD: Normocephalic. EYES: No scleral icterus. No injection or drainage. NECK: Supple, trachea midline. No JVD or lymphadenopathy. CARDIOVASCULAR: Regular rate and rhythm without murmurs, gallops, or rubs. RESPIRATORY: Breath sounds equal bilaterally. No accessory muscle use. [address] SQ Emphysema. GASTROINTESTINAL: Abdomen soft, non-tender, nondistended. MUSCULOSKELETAL: No cyanosis, or edema. BACK: Nontender without obvious deformity. No CVA tenderness. A/P Assessment and Plan VDRF Post Influenza Pn MRSA PTX PLAN: Cont Vent support Cont Abx TF Sedation with Diprivan, Versed and Fentanyl. DW Daughter IR for CT guided chest cathetor placement Dru Pride MD Feb 10, 2018 19:12
[2018-02-10] MEDS ORDERED: PHARMACY INFORMATION XX PRN (20:30)
[2018-02-10] MEDS ORDERED: ASP: Other exception documentation: ( ) PRN (20:30)
[2018-02-10] MEDS: MEROPENEM INJ 500 MG in SODIUM CHLORIDE 0.9% INJ 100 ML IV SCH (22:00)
[2018-02-11] VITALS (19 sets, daily range): BP systolic 121–141; BP diastolic 55–66; PULSE 74–94; RESP 19–25; TEMP 98.4–101.9; O2SAT 92–100
[2018-02-11] MEDS: DILTIAZEM HCL 30 MG TAB PO SCH ×5 (00:30→23:27)
[2018-02-11] MEDS: ACETAMINOPHEN 325 MG TAB PO PRN (00:30)
[2018-02-11] MEDS: LINEZOLID 600 MG PREMIX 300 ML IV SCH ×2 (00:30→11:59)
[2018-02-11] MEDS: PROPOFOL 1000 MG/100 ML IV PRN ×4 (02:10→23:47)
[2018-02-11] MEDS: CHLORHEXIDINE GLUCONATE 2 % 1 PACK (2 CLOTHS) TOP SCH (04:00)
[2018-02-11 04:02] LABS: AUTOMATED NEUTROPHIL # 20.1 TH/MM3 (1.8-7.7); BASOPHIL # 0.1 TH/MM3 (0-0.2); BASOPHIL % 0.3 % (0.0-2.0); EOSINOPHIL # 0.1 TH/MM3 (0-0.4); EOSINOPHIL % 0.6 % (0.0-4.0); HEMATOCRIT 23.6 % (35.0-46.0); HEMOGLOBIN 7.7 GM/DL (11.6-15.3); LYMPH % 5.1 % (9.0-44.0); LYMPHOCYTE # 1.1 TH/MM3 (1.0-4.8); MEAN CELL VOLUME 83.5 FL (80.0-100.0); MEAN CORPUSCULAR HEMOGLOBIN 27.1 PG (27.0-34.0); MEAN CORPUSCULAR HGB CONC 32.5 % (32.0-36.0); MEAN PLATELET VOLUME 8.7 FL (7.0-11.0); MONO % 3.7 % (0.0-8.0); MONOCYTE # 0.8 TH/MM3 (0-0.9); NEUT % 90.3 % (16.0-70.0); PLATELET COUNT 505 TH/MM3 (150-450); RED BLOOD COUNT 2.82 MIL/MM3 (4.00-5.30); RED CELL DISTRIBUTION WIDTH 15.9 % (11.6-17.2); WHITE BLOOD COUNT 22.3 TH/MM3 (4.0-11.0)
[2018-02-11] MEDS: RESP: ALBUTEROL 2.5 MG/IPRATROPIUM 0.5 MG NEB (PRN) INH (04:04)
[2018-02-11 04:27] LABS: ALBUMIN 0.8 GM/DL (3.4-5.0); AST (GOT) 81 U/L (15-37); BICARBONATE 31.8 MEQ/L (21.0-32.0); BLOOD UREA NITROGEN 25 MG/DL (7-18); CALCIUM 7.7 MG/DL (8.5-10.1); CHLORIDE 106 MEQ/L (98-107); CREATININE 0.72 MG/DL (0.50-1.00); GLOMERULAR FILTRATION RATE 82 ML/MIN (>89); GLUCOSE,RANDOM 117 MG/DL (74-106); MAGNESIUM 2.3 MG/DL (1.5-2.5); SODIUM (NA) 144 MEQ/L (136-145)
[2018-02-11 04:30] LABS: ALKALINE PHOSPHATASE 329 U/L (45-117); ALT (GPT) 114 U/L (10-53); TOTAL BILIRUBIN ADULT 0.6 MG/DL (0.2-1.0); TOTAL PROTEIN 5.9 GM/DL (6.4-8.2)
[2018-02-11] MEDS: fentaNYL 2,500 MCG/NS 250 ML IV PRN ×2 (04:36→16:42)
[2018-02-11] MEDS: VANCOMYCIN INJ 1,500 MG in SODIUM CHLORID 0.9% 500 ML INJ 500 ML IV SCH ×2 (04:36→22:15)
--- NOTE | 2018-02-11 05:19 | RADRPT ---
EXAM DATE/TIME: 02/11/2018 03:49 [facility] COMPARISON: CHEST SINGLE AP, February 10, 2018, 4:08. INDICATIONS : Shortness of breath,possible pulmonary disease. MEDICAL HISTORY : Sepsis. SURGICAL HISTORY : None. ENCOUNTER: Subsequent ACUITY: 2 weeks PAIN SCORE: Non-responsive. LOCATION: Bilateral chest FINDINGS: A single view of the chest demonstrates diffuse bilateral patchy opacities. Bilateral chest tubes wit hout definite pneumothorax. Endotracheal tube, nasogastric tube and right subclavian central line sta ble in position. Extensive bilateral subcutaneous emphysema. Osseous structures are intact. CONCLUSION: Stable chest with diffuse bilateral parenchymal opacities. Karri Muhammad MD on February 11, 2018 at 5:16 Board Certified Radiologist. This report was verified electronically.
[2018-02-11] MEDS: HEPARIN SODIUM - SQ 10,000 UNITS/ML VIAL SQ SCH ×3 (05:21→21:29)
[2018-02-11] MEDS: MEROPENEM INJ 500 MG in SODIUM CHLORIDE 0.9% INJ 100 ML IV SCH ×3 (05:21→21:28)
[2018-02-11] MEDS: INSULIN ASPART SUPPLEMENTAL SCALE SQ SCH ×4 (08:00→23:30)
[2018-02-11] MEDS: DOCUSATE SODIUM 50 MG/SENNA 8.6 MG TAB PO SCH ×2 (08:43→21:29)
[2018-02-11] MEDS: ASPIRIN 81 MG CHEW TAB CHEW SCH (08:43)
[2018-02-11] MEDS: FAMOTIDINE 20 MG TAB PO SCH ×2 (08:44→21:30)
[2018-02-11] MEDS: SODIUM CHLORIDE 0.9% FLUSH 10 ML FLUSH IV FLUSH SCH ×2 (08:44→21:30)
[2018-02-11] MEDS: FUROSEMIDE 40 MG/4 ML VIAL IV PUSH SCH ×2 (08:44→21:29)
[2018-02-11] MEDS: CHLORHEXIDINE 0.12% (ORAL KIT) 15 ML CUP MT SCH ×2 (08:45→19:43)
--- NOTE | 2018-02-11 09:14 | MB ---
cc: Dru Pride MD DATE: 02/08/2018 REQUESTING PHYSICIAN: Dilcia Cooper MD REASON FOR CONSULTATION: Respiratory failure and bilateral pneumonia HISTORY OF PRESENT ILLNESS: Ms. Tinoco is a 62-year-old female with no significant past medical history, has history of secondhand smoke exposure. She lives with her boyfriend . The patient came to the hospital on 01/30 with shortness of breath, chest discomfort. As per her daughters, she was not feeling well for about a week or so. She was treated for possible flu. The patient was brought to the hospital. She quickly deteriorated. She was intubated. She is on ventilator. She also developed bilateral pneumothorax and she has 4 chest tubes. Currently, she is on ventilator pressure control mode, rate of 16, FIO2 55%. She is sedated with fentanyl, Versed and Diprivan. She is not requiring any pressors. Her laboratory evaluation reveals WBC count 21.4, hemoglobin 8.5, hematocrit 26.8, MCV 85, platelet count 301. Sodium 145, potassium 3.9, chloride 106, CO2 of 32, BUN 33, creatinine 0.95. Blood gas on 55% FIO2 - pH 7.45. pCO2 47, pO2 72, bicarb 32. Her blood culture is positive for MRSA. Sputum is positive for MRSA and Enterobacter. Her chest x-ray shows extensive subcutaneous emphysema. Earlier her CT scan of the chest done on 01/30 shows bilateral lung infiltrate. PAST MEDICAL HISTORY: Unremarkable. MEDICATIONS AT HOME: She does not take any prescription medications. She is currently on: 1. Rocephin 2 grams a day. 2. IV vancomycin and Zyvox. 3. Diltiazem 30 mg q.6 hours. 4. Famotidine 10 mg a day. 5. Heparin 5000 q. 12 hours. 6. Albuterol/Atrovent nebulizer treatment. ALLERGIES: NO KNOWN DRUG ALLERGIES. SOCIAL HISTORY: She was before, now lives with her boyfriend. 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 Now she is working with her boyfriend; they have a [email or web address]. FAMILY HISTORY: She has 3 children, 1 in infancy; 2 daughters are at the bedside, Alona and Zenobia. PHYSICAL EXAMINATION: GENERAL: Well-built, well-nourished female on ventilator, sedated. VITAL SIGNS: Blood pressure 122/59, heart rate 80, respirations 17, temperature 98. HEENT: Pupils are equal and reactive to light. She has subcutaneous emphysema and the eyelids are odematous on the left side. She is orally intubated. NECK: Supple. JVD not raised. CHEST: She has extensive subcutaneous emphysema, has crackles. CARDIOVASCULAR: S1, S2 normal. ABDOMEN: Soft, nondistended. Bowel sounds are present. EXTREMITIES: No edema. IMPRESSION: 1. Ventilator-dependent respiratory failure. 2. Bilateral pneumothoraces, status post 4 chest tubes. 3. Subcutaneous emphysema. 4. Methicillin resistant Staphylococcus aureus pneumonia. 5. Enterobacter pneumonia. 6. Recent influenza. 7. Leukocytosis. PLAN: I discussed with the patient's daughter at the bedside. She will be maintained on ventilator. She did not tolerate CPAP today. We will try CPAP again tomorrow. Continue Zyvox, vancomycin and Rocephin. Continue sedation. She is on subcu heparin. Famotidine for GI prophylaxis. Further treatment will depend on the hospital course. Thank you, Dr. Dilcia Cooper, for this consultation. MD MONIE Olivera//ayaan , 06:57 PM , 08:21 PM MTDD
--- NOTE | 2018-02-11 09:15 | HHI.CCPN ---
Subjective Remarks/Hospital Course 01/30: 62-year-old female presents for evaluation of increasing shortness of breath and chest pain. She reports 1 week of coughing 3 days of pain in her left chest which radiates to her back, which prompted the visit to the emergency room yesterday. She rates her pain a 6 out of 10. She reports fevers , chills, fatigue, mild nausea. She denies any abdominal pain, vomiting. Patient denies any significant past medical history. Symptom onset was gradual , symptom severity is severe, there are no alleviating factors. Patient states that she has been taking the azithromycin antibiotics that were prescribed to her. She denies any current or historical tobacco use. 01/31: Intubated at 1 AM this morning and placed on mechanical ventilation due to worsening respiratory distress. Currently sedated, orally intubated on mechanical ventilation. 02/01: Remains sedated, orally intubated on mechanical ventilation. Went into A. fib with RVR this morning. Loaded with amiodarone, started on amiodarone drip and given digoxin 0.5 mg IV 02/02: Remains sedated, orally intubated on mechanical ventilation. Right sided pigtail catheter in place with 1+ air leak. Converted to sinus rhythm overnight. Remains on amiodarone gtt. 02/03: Remains sedated, orally intubated on mechanical ventilation. 1+ air leak and right sided pigtail catheter. Tolerating tube feeds. Remains on amiodarone gtt. 02/04: Noted to have pneumothorax on the left side this morning on routine chest x -ray which appeared to be under tension. Right sided pigtail catheter placed by Dr. Peña with reexpansion of lung. Patient remains sedated, orally intubated on mechanical ventilation. 1+ airleak and bilateral chest tubes noted. 02/05: Afebrile. Persistent leukocytosis, bilateral chest tubes continue on wall suction. Chest x-ray pending this a.m.. Patient scheduled for GRANT today, discussed with Dr. Vázquez. Patient continues on amiodarone infusion with sinus rhythm. Postprocedure GRANT,this afternoon, the patient became extremely agitated, noted significant increase in subcu emphysema, peak pressures 50's, O2 saturation significantly decreased to 78-80 %. Stat chest x-ray performed patient was noted to have a significant right pneumothorax. 20 Ghanaian right chest tube placement emergently, with increase in O2 saturation decrease in peak inspiratory pressures. 02/06: Afebrile. Patient with persistent bilateral pneumothoraces, with diffuse bilateral infiltrates and massive SQ emphysema. O2 requirement significantly increased during the night, PIP 38-44. 28 F chest tubes were placed bilaterally with resolution of left pneumothorax and minimization of right pneumothorax, and improved oxygenation. 02/07: TMax 100.1 Chest tubes remain on suction. Resolution of pneumothoraces, continued extensive SQ emphysema. Persistent leukocytosis noted. FiO2 weaned to 50%. 02/08: Late entry note patient seen at 1250. Attempts at CPAP trials, unsuccessful this morning. FiO2 decreased 50%, with adequate oxygenation. 02/09: Afebrile. The patient was transitioned to CPAP trials with pressure support of /8. FiO2 currently at 55% continuing to wean. Patient noted with positive fluid balance Lasix 40 mg IV now, patient is initiated on Lasix 40 daily. Patient with positive air leak in chest tubes #1-28 Ghanaian right and #3 pigtail left, both at 2+. Sedation vacation initiated early this a.m. patient neurologically intact. Patient continues on moderate sedation for CPAP to maintain ventilator synchrony plan for transitioning to Precedex. Noted improvement with subcu emphysema. Extensive discussion with patient's daughter regarding a possibility of a tracheostomy if unsuccessful with ventilator weaning process. 02/10: Subcutaneous emphysema has worsened overnight per RN who took care of the patient yesterday, now extending to the upper chest left neck and to the left side of the face including left eyelids. No increase in FiO2 requirement currently on 55%. I have reduced inspiratory pressure from 32 to 28. FiO2 reduced to 50%. Will check a repeat chest x-ray in afternoon if needed. Will request CT surgical evaluation for persistent subcutaneous emphysema despite 2 chest tubes bilaterally 02/11 Patient is sedated with Diprivan, Versed and Fentanyl drips. T: 101.[address] guided chest tube placement by IR today Objective Vital Signs Date Time Temp Pulse Resp B/P (MAP) Pulse Ox O2 Delivery O2 Flow Rate FiO2 02/11/18 08:12 96 45 02/11/18 08:00 98.9 81 19 141/66 (91) Intake and Output 02/11/18 02/11/18 02/12/18 08:00 16:00 00:00 Intake Total 1000 ml Output Total 1220 ml Balance -220 ml Result Diagram: 02/11/18 0355 02/11/18 0355 Other Results Laboratory Tests Test 02/11/18 03:55 White Blood Count 22.3 TH/MM3 Red Blood Count 2.82 MIL/MM3 Hemoglobin 7.7 GM/DL Hematocrit 23.6 % Mean Corpuscular Volume 83.5 FL Mean Corpuscular Hemoglobin 27.1 PG Mean Corpuscular Hemoglobin Concent 32.5 % Red Cell Distribution Width 15.9 % Platelet Count 505 TH/MM3 Mean Platelet Volume 8.7 FL Neutrophils (%) (Auto) 90.3 % Lymphocytes (%) (Auto) 5.1 % Monocytes (%) (Auto) 3.7 % Eosinophils (%) (Auto) 0.6 % Basophils (%) (Auto) 0.3 % Neutrophils # (Auto) 20.1 TH/MM3 Lymphocytes # (Auto) 1.1 TH/MM3 Monocytes # (Auto) 0.8 TH/MM3 Eosinophils # (Auto) 0.1 TH/MM3 Basophils # (Auto) 0.1 TH/MM3 CBC Comment AUTO DIFF Differential Comment AUTO DIFF CONFIRMED Blood Urea Nitrogen 25 MG/DL Creatinine 0.72 MG/DL Random Glucose 117 MG/DL Total Protein 5.9 GM/DL Albumin 0.8 GM/DL Calcium Level 7.7 MG/DL Magnesium Level 2.3 MG/DL Alkaline Phosphatase 329 U/L Aspartate Amino Transf (AST/SGOT) 81 U/L Alanine Aminotransferase (ALT/SGPT) 114 U/L Total Bilirubin 0.6 MG/DL Sodium Level 144 MEQ/L Potassium Level 4.0 MEQ/L Chloride Level 106 MEQ/L Carbon Dioxide Level 31.8 MEQ/L Anion Gap 6 MEQ/L Estimat Glomerular Filtration Rate 82 ML/MIN Imaging Last Impressions Chest X-Ray 02/11/18 0600 Signed Impressions: Service Date/Time: Sunday, February 11, 2018 03:49 - CONCLUSION: Stable chest with diffuse bilateral parenchymal opacities. Karri Muhammad MD Neck CT 02/10/18 0000 Signed Impressions: Service Date/Time: Saturday, February 10, 2018 14:57 - CONCLUSION: 1. Extensive subcutaneous edema in the neck which has dissected cephalad from the chest and is worse on the left side. 2. Support apparatus as above. See chest CT report for evaluation of lungs. 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 No adenopathy. Everett Ng MD Chest CT 02/10/18 0000 Signed Impressions: Service Date/Time: Saturday, February 10, 2018 14:52 - CONCLUSION: 1. Loculated hydropneumothorax in the left anterior chest not currently drained by chest tube. 2. Multifocal areas of dense consolidation and cavitation in both lungs but significantly worse on the right side with considerable progression since January 30 comparison. Primary differential diagnosis is infection or septic embolic disease. 3. Extensive subcutaneous air has developed bilaterally. There is a small right pneumothorax. Everett Ng MD Procedures 02/05- Right emergent 20 F chest tube placement 02/06: Left 28 Ghanaian chest tube placement, right chest tube replacement 28 Ghanaian Objective Remarks HEENT/ Neuro: Sedated, orally intubated, Pallor present, no icterus, tongue/ mucosa moist significant SQ emphysema. Left side of the face eyelid has significant subcu emphysema Neck: No JVD. Left side of the neck with significant subcutaneous emphysema Chest/Pulm: on mech vent, air entry decreased bilaterally at bases, scattered rhonchi bilaterally. Bilateral pigtail catheters insitu., and 28F chest tubes bilaterally to -40cm H20. Upper chest has significant subcu air CVS: S1-S2 regular, no murmur GI/abdomen: soft, nontender, bowel sounds hypoactive Neuro: RASS -2, currently on fentanyl, propofol and Versed infusions. Patient moving extremities 4 Extremities: warm bilaterally, 1+bilateral peripheral edema upper and lower extremities A/P Assessment and Plan Neuro: Neuro checks per ICU protocol Versed, propofol and fentanyl to maintain ventilator synchrony. Daily sedation vacaton when appropriate Pulm: Acute hypoxemic respiratory failure MRSA pneumonia MRSA bacteremia COPD Persistent bilateral pneumothorax, significant subcutaneous emphysema Post Influenza pneumonia? Continue vent support keep sats >92%, will need trach once more stable - DuoNeb scheduled and when necessary - Titrated off IV steroids by 02/03 Bilateral pigtail catheters in place -02/06; chest x-ray diffuse bilateral infiltrates massive subcu emphysema bilateral pneumothoraces. B/l chest tubes placed -Possible recurrent pneumothoraces secondary to post influenza PNA -02/08 CXR significant subcu emphysema, no pneumothorax, chest tubes in place. Worsening opacity left greater than right. -Consult thoracic surgery for significant subcutaneous emphysema despite bilateral chest tubes Discussed with Dr. Kandice Bo who recommended to reposition CT and consult CT surgery spoke to Dr. Thornton and states patient is not a candidate for any surgical intervention recommend for IR to place CT on left for small anterior hydroPTX. Discussed with Dr. Jensen from IR patient might either need repositioning CT under fluro or might need a new CT. Will evaluate in am however if patient decompensates then will need CT earlier. Patient already has 4 chest tubes. Renal: Acute kidney injury-resolved Dehydration-resolved - Maintain Alexandre -Monitor renal function, I/O's, electrolytes replacement per protocol. Increase Lasix 40mg BID Cardiovascular: A. fib with RVR (converted to NSR 02/02) -02/05 amiodarone infusion discontinued. - 02/05 GRANT -no valvular vegetations. EF 55-60%, trace MVR, mild TVR, PAP 35 Monitor HR and BP keep MAP>65mmHfg GI Elevated LFT;s Check US liver and Hepatitis profile. -Tube feeds Jevity 1.5 60 cc/hr at goal,- on hold for possible CT placement by IR today -Bowel regimen-last BM 02/08 -Zofran for nausea ID: MRSA, Enterobacter pneumonia MRSA Bacteremia - Antibiotics per ID. On Zyvox, Vanco, Merrem. Monitor for signs of infections ( Fever, WBC) -Repeat blood cultures per ID. Bal culture/blood cultures growing MRSA. Legionella and strep pneumo antigen negative -ID- Dr. Singleton following. Endocrine: Hyperglycemia Medium scale sliding scale insulin dosing Glucose monitoring per ICU protocol DVT GI prophylaxis - Teds SCDs - Subcutaneous heparin - Pepcid Lines: Right subclavian central line inserted 02/01. Peripheral IVs 2 Critical Care time 30 MIN my billing statement This patient remains critically ill with one or more organ systems which are or may become a threat to life. I have spent in excess of 40 minutes discontinuously in the care and management of this patient. This time is exclusive of procedures, and includes, but is not limited to, evaluation of the patient, review of the medical record, discussions with family, consultants, nursing staff, or respiratory therapy, and documentation in the medical record. Lenard Qureshi MD Feb 11, 2018 09:15
--- NOTE | 2018-02-11 10:43 | HHI.IDPN ---
Subjective Subjective Remarks 62 yo female w/o significant past medical history presented 2 days ago with chest pain, CXR showed L lung basilar infiltrate shew was discharged with abx ( azithromycin) SHe came back with worsening SOB and was admitted and intubated, placed on vent She was started on broad spectrum abx: initially azithro, zosyn, vanco She grew out MRSA in 2/2 blood cultures, sputum with GPC in clusters imaging studies showed progression of infiltrates Vancomycin was switched to zyvox WBC elevated with 23 % of bands flu/ pneumococcus/ legionella negative Overnight events reviewed. Remains in the ICU. Intubated has 4 CTs (2 pigtails superiorly bilaterally and 2 large bores bilaterally) Has Right face subq emphysema involving face and right eye now. Low grade temps 101.9 F No diarrhea Antibiotics Meropenem IV Vanco IV Zyvox IV Lines Line sites with no e.o infection Past Medical History Gastric bypass Tonsillectomy Allergies: Coded Allergies: No Known Allergies (Unverified , 01/30/18) Objective . Vital Signs Date Time Temp Pulse Resp B/P (MAP) Pulse Ox O2 Delivery O2 Flow Rate FiO2 02/11/18 10:00 81 02/11/18 08:12 96 45 02/11/18 08:00 45 02/11/18 08:00 98.9 81 19 141/66 (91) 97 02/11/18 08:00 81 02/11/18 06:00 80 02/11/18 04:39 98 55 02/11/18 04:00 55 02/11/18 04:00 98.6 80 21 139/65 (89) 100 02/11/18 04:00 80 02/11/18 02:00 84 02/11/18 01:40 70 02/11/18 01:35 92 70 02/11/18 00:00 55 02/11/18 00:00 101.9 94 25 135/63 (87) 95 02/11/18 00:00 94 02/10/18 22:13 99 55 02/10/18 22:00 93 02/10/18 20:00 92 02/10/18 20:00 99.2 92 30 180/79 (112) 96 02/10/18 20:00 55 02/10/18 19:12 96 55 02/10/18 18:00 86 02/10/18 16:00 55 02/10/18 16:00 80 02/10/18 16:00 98.6 80 20 105/58 (74) 98 02/10/18 15:23 97 55 02/10/18 14:00 87 02/10/18 12:16 100 55 02/10/18 12:00 99.2 83 21 111/56 (74) 100 02/10/18 12:00 83 02/10/18 12:00 55 . Laboratory Tests Test 02/11/18 03:55 White Blood Count 22.3 TH/MM3 Red Blood Count 2.82 MIL/MM3 Hemoglobin 7.7 GM/DL Hematocrit 23.6 % Mean Corpuscular Volume 83.5 FL Mean Corpuscular Hemoglobin 27.1 PG Mean Corpuscular Hemoglobin Concent 32.5 % Red Cell Distribution Width 15.9 % Platelet Count 505 TH/MM3 Mean Platelet Volume 8.7 FL Neutrophils (%) (Auto) 90.3 % Lymphocytes (%) (Auto) 5.1 % Monocytes (%) (Auto) 3.7 % Eosinophils (%) (Auto) 0.6 % Basophils (%) (Auto) 0.3 % Neutrophils # (Auto) 20.1 TH/MM3 Lymphocytes # (Auto) 1.1 TH/MM3 Monocytes # (Auto) 0.8 TH/MM3 Eosinophils # (Auto) 0.1 TH/MM3 Basophils # (Auto) 0.1 TH/MM3 CBC Comment AUTO DIFF Differential Comment AUTO DIFF CONFIRMED Laboratory Tests Test 02/11/18 03:55 Blood Urea Nitrogen 25 MG/DL Creatinine 0.72 MG/DL Random Glucose 117 MG/DL Total Protein 5.9 GM/DL Albumin 0.8 GM/DL Calcium Level 7.7 MG/DL Magnesium Level 2.3 MG/DL Alkaline Phosphatase 329 U/L Aspartate Amino Transf (AST/SGOT) 81 U/L Alanine Aminotransferase (ALT/SGPT) 114 U/L Total Bilirubin 0.6 MG/DL Sodium Level 144 MEQ/L Potassium Level 4.0 MEQ/L Chloride Level 106 MEQ/L Carbon Dioxide Level 31.8 MEQ/L Anion Gap 6 MEQ/L Estimat Glomerular Filtration Rate 82 ML/MIN Microbiology Date/Time Source Procedure Growth Status 02/10/18 21:35 Blood Other Aerobic Blood Culture Pending Resulted 02/10/18 21:35 Blood Other Anaerobic Blood Culture - Final QNS - SEE AEROBE REPORT Resulted 02/10/18 21:30 Blood Other Aerobic Blood Culture Pending Received 02/10/18 21:30 Blood Other Anaerobic Blood Culture Pending Received 02/10/18 13:53 Genital Vaginal Genital Culture Pending Received 02/10/18 22:00 Sputum Endotracheal Gram Stain - Final Resulted 02/10/18 22:00 Sputum Endotracheal Sputum Culture Pending Resulted Imaging Last Impressions Chest X-Ray 02/08/18 0600 Signed Impressions: Service Date/Time: Thursday, February 08, 2018 05:02 - CONCLUSION: 1. Increased bilateral pulmonary parenchymal opacity left greater than right. Differential diagnosis includes infection, pulmonary edema, and ARDS. 2. Extensive bilateral subcutaneous emphysema. 3. Bilateral chest tubes unchanged. No gross evidence of pneumothorax. Dontrell Dow MD Chest CT 01/30/18 0000 Signed Impressions: Service Date/Time: Tuesday, January 30, 2018 20:07 - CONCLUSION: 1. Dense consolidation throughout the left lingula and left lower lobe. There is more patchy areas of consolidation in the upper lobes bilaterally. This pattern is most suggestive of inflammatory/infectious processes. 2. Mild left pleural effusion. 3. Status post gastric surgery/bypass with a mild hiatal hernia. Michael Gabriel MD Physical Exam CONSTITUTIONAL/GENERAL: On the vent SKIN: No jaundice, rashes, or lesions. Ecchymoses on upper extremities. Skin temperature appropriate. generalized edema Massive Sq emphysema HEAD: Atraumatic. Normocephalic. EYES: Pupils equal and round and reactive. No scleral icterus. No injection or drainage. ENT: No nasal discharge, orally intubated NECK: Supple, nontender. CARDIOVASCULAR: Regular rate and rhythm without murmurs, gallops, or rubs. RESPIRATORY/CHEST: Symmetric, unlabored respirations. Rhonchi b/l. CTx2 on R and CT x 2 on the L GASTROINTESTINAL: Abdomen soft, nondistended. Obese. Mild grimacing during palpation, not guarding. GENITOURINARY: Without palpable bladder distension. Alexandre catheter in place. MUSCULOSKELETAL: Extremities without clubbing, cyanosis, + 3 diffuse edema. . NEUROLOGICAL: more awake today PSYCHIATRIC: unable to assess LINE: no evidence of infection Assessment & Plan Remarks IMPRESSION MRSA PNA Multiple b/l pneumothoraces ? postinfluenza PNA Loculated hydropneumothorax: ? empyema Acute VDRF High grade , sustained MRSA bacteremia GRANT negative Severe leukocytosis and bandemia New PNA, Enterobacter (panS) along with MRSA PLAN Continue Meropenem IV Continue Zyvox. Monitor platelets and HCO3. Continue Vancomycin IV (target 15-20) for extensive MRSA pneumonia. May consider discontinuation of Vanco IV if no concern for endocarditis. GRANT is negative. Follow cultures follow clinically. Dw Dr.John morel about CT lung findings and CTS consult and change of antibiotics. to resume care in am. Jennifer Choe MD Feb 11, 2018 10:43
--- NOTE | 2018-02-11 10:46 | RADRPT ---
EXAM DATE/TIME: 02/10/2018 00:00 [facility] COMPARISON: No previous studies available for comparison. INDICATIONS : Left Hydropneumothorax CONSULTATION: I have been asked to place the fifth chest tube this patient has extensive subcutaneous emphysema to drain small hydropneumothorax on the left. Adding another chest tube will increase the amount of subcutaneous emphysema. Recommendation is to reposition the large left chest tube sitting just below this fluid collection.. Findings discussed with Dr. Esteban on today's date Geovani Bo MD FACR on February 11, 2018 at 10:41 Board Certified Radiologist. This report was verified electronically.
[2018-02-11] MEDS: MIDAZOLAM 100 MG/NS 100 ML DRIP Premix IV PRN (12:05)
--- NOTE | 2018-02-11 12:10 | RADRPT ---
EXAM DATE/TIME: 02/11/2018 09:34 [facility] COMPARISON: No previous studies available for comparison. INDICATIONS : Increased lab values. MEDICAL HISTORY : Increased lab values. SURGICAL HISTORY : Gastric bypass. Tonsillectomy. ENCOUNTER: Initial ACUITY: 1 day PAIN SCORE: 0/10 LOCATION: Right upper quadrant MEASUREMENTS: LIVER: Non Visualized. cm length COMMON DUCT: 2 mm RIGHT KIDNEY: Non Visualized. cm SPLEEN: Non visualized. cm length FINDINGS: The examination is nondiagnostic secondary to inability to obtain an adequate window CONCLUSION: Nondiagnostic examination CT scan is recommended for further evaluation if clinically indicated. To Vaughn MD on February 11, 2018 at 12:06 Board Certified Radiologist. This report was verified electronically.
[2018-02-11] MEDS ORDERED: ALTEPLASE RECOMBINANT 2 MG VIAL IV FLUSH ONE (12:30)
--- NOTE | 2018-02-11 17:00 | HHI.PR ---
Subjective Remarks 62 YO Female with VDRF,PTx, 4 Chest tubes 2 chest tubes have airleak Sedated with Versed, Diprivan and Fentanyl On Vent CT chest loculated fluid collection not being drained by exising chest tubes CTS consulted Objective Vital Signs Vital Signs Date Time Temp Pulse Resp B/P (MAP) Pulse Ox O2 Delivery O2 Flow Rate FiO2 02/11/18 16:35 94 45 02/11/18 16:00 80 02/11/18 16:00 45 02/11/18 16:00 98.5 80 20 123/60 (81) 95 02/11/18 14:00 81 02/11/18 13:12 93 45 02/11/18 12:00 98.4 85 23 137/65 (89) 95 02/11/18 12:00 85 02/11/18 12:00 45 02/11/18 10:00 81 02/11/18 08:12 96 45 02/11/18 08:00 45 02/11/18 08:00 98.9 81 19 141/66 (91) 97 02/11/18 08:00 81 02/11/18 06:00 80 02/11/18 04:39 98 55 02/11/18 04:00 55 02/11/18 04:00 98.6 80 21 139/65 (89) 100 02/11/18 04:00 80 02/11/18 02:00 84 02/11/18 01:40 70 02/11/18 01:35 92 70 02/11/18 00:00 55 02/11/18 00:00 101.9 94 25 135/63 (87) 95 02/11/18 00:00 94 02/10/18 22:13 99 55 02/10/18 22:00 93 02/10/18 20:00 92 02/10/18 20:00 99.2 92 30 180/79 (112) 96 02/10/18 20:00 55 02/10/18 19:12 96 55 02/10/18 18:00 86 I/O 02/10/18 02/10/18 02/10/18 02/11/18 02/11/18 02/11/18 07:00 15:00 23:00 07:00 15:00 23:00 Intake Total 1486 ml 350 ml 1660 ml 1000 ml Output Total 1238 ml 1750 ml 1220 ml Balance 248 ml 350 ml -90 ml -220 ml IV Total 300 ml 350 ml 1115 ml 750 ml Tube Feeding 1186 ml 545 ml 250 ml Output Urine Total 1100 ml 1600 ml 1150 ml Chest Tube Drainage Total 138 ml 150 ml 70 ml # Bowel Movements 0 1 Result Diagram: 02/11/1835402/11/18354 Objective Remarks GENERAL: WBWN Female, on Vent, sedated SKIN: Warm and dry. HEAD: Normocephalic. EYES: No scleral icterus. No injection or drainage. NECK: Supple, trachea midline. No JVD or lymphadenopathy. CARDIOVASCULAR: Regular rate and rhythm without murmurs, gallops, or rubs. RESPIRATORY: Breath sounds equal bilaterally. No accessory muscle use. [address] SQ Emphysema. GASTROINTESTINAL: Abdomen soft, non-tender, nondistended. MUSCULOSKELETAL: No cyanosis, or edema. BACK: Nontender without obvious deformity. No CVA tenderness. A/P Assessment and Plan VDRF Post Influenza Pn MRSA PTX PLAN: Cont Vent support Cont Abx TF Sedation with Diprivan, Versed and Fentanyl. DW CTS consulted Dru Pride MD Feb 11, 2018 17:00
--- NOTE | 2018-02-11 17:27 | MB ---
cc: Linnea Castillo Sohit MD DATE: 02/11/2018 DATE OF : 1955 HISTORY OF PRESENT ILLNESS: A 62-year-old female who presented on the 01/30/2018 with shortness of breath. She had apparently been ill for about a week with upper respiratory, possibly treated for the flu. During her hospitalization, she quickly deteriorated and was intubated and placed on the ventilator. Her sputum grew Enterobacter and MRSA. She developed a bilateral pneumothorax and has currently four chest tubes. She is on pressure control, FiO2 45%, sedated on propofol. She is not on any pressors at this time. Her CT scan shows a loculated pneumothorax and left anterior chest, not currently drained by the other 2 chest tubes that are in there. She has some multifocal dense consolidation and cavitation in both lungs, but worse on the right, concern for extensive pneumonia. Also extensive subcutaneous air entry bilaterally and a small right pneumothorax. PAST MEDICAL HISTORY: Relatively unremarkable other than having tonsillectomy, gastric bypass, recent flu. ALLERGIES: NO KNOWN ALLERGIES. HOME MEDICATIONS: Zithromax and Aleve. FAMILY HISTORY: Has 3 children, 1 in infancy. Two daughters, Alona and Zenobia. She now lives with her boyfriend. 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 REVIEW OF SYSTEMS: Unobtainable. PHYSICAL EXAMINATION: GENERAL: On exam, this is a 62-year-old female, stated age. VITAL SIGNS: Blood pressure 123/60, heart rate of 80, temperature 98.5. GENERAL: The patient is sedated on the ventilator, orally intubated. She has some subcutaneous emphysema in the neck area. Also, the upper chest and upper arms. NECK: No bruits noted. CARDIOVASCULAR: S1, S2. Regular rate and rhythm. No audible rubs or gallops. LUNGS: Extensive subcutaneous emphysema. Positive for bilateral crackles. ABDOMEN: Obese, soft, nontender, no masses or organomegaly. EXTREMITIES: With mild edema. RADIOLOGICAL EXAM: CT chest as above. LABORATORY DATA: Shows hemoglobin 7.7, hematocrit of 23, white cell count of 22, platelet count of 505. Sodium 144, potassium 4.0, BUN of 25, creatinine 0.72, AST 81, ALT 114. INR 1.0. Urinalysis showed some trace of leukocyte esterase. MRSA screen detected. Influenza A not detected. IMPRESSION: This is ventilator-dependent respiratory failure with a methicillin-resistant staphylococcus aureus pneumoniae, Enterobacter pneumoniae, recent influenza, probable post-influenza pneumonia, also ventilator-dependent respiratory failure, and then the patient developed bilateral pneumothoraces, now status post [address] shows loculated hydropneumothorax in the left anterior chest wall, not currently drained by chest tube. RECOMMENDATIONS: The films have been evaluated by Dr. Loan Thornton. Recommendations for IR to place a pigtail catheter into the left anterior space to drain that area. Further plan as per Dr. Thornton. IRENA Olsen MD JRT/FIDE , 04:58 PM , 05:26 PM YANG
--- NOTE | 2018-02-11 19:05 | HHI.HCPN ---
Reason for visit a. To assist with evaluation and management of symptoms including: dyspnea; encephalopathy, pain b. To assist medical decision maker(s) with: better understanding of current medical conditions; weighing benefits/burdens of medical treatment options; making medical treatment decisions. . Subjective/Interval History Patient remains intubated, mechanically ventilated, sedated, and minimally responsive in a medical ICU bed. Chest tubes remain in place. Repeat CT on 02/10 shows large left sided loculated hydropneumothorax not currently being drained by any of the 4 chest tubes. Oxygenating adequately on 45% FIO2. Sputum culture from 02/06/18 now growing Enterobacter (thurston sensitive) White blood count remains quite elevated. I spoke with Dr. Qureshi about case. He had spoken with interventional radiology regarding putting yet another chest tube in. I.R. apparently felt, per Dr. Qureshi, that since the first 4 chest tubes had not solved the problem it was going to be unlikely that yet another chest tube would help. Dr. Qureshi consulted cardio-thoracic surgery regarding a surgical approach to her pneumothoraces and hydropneumothorax. Dr. Thibodeaux had reviewed the films. When I spoke with him he felt interventional radiology would be a much wiser approach then surgery. Pulmonology was consulted over the weekend . I spoke with Dr. Pride. Dr. Pride recommended ongoing aggressive care as he still felt there was hope for recovery. . Family/friend interactions I spoke with both daughters for about 45 minutes in the counseling room. This conversation took place after I spoke with Dr. Qureshi but before speaking with Dr. Thibodeaux and Dr. Pride. I borught the daughters up to date by reviewing the most recent chest CT results. I told them about the consultation with interventional radiology and cardiothoracic surgery. We discussed how the patient was not improving significantly at this point with ongoing aggressive care. We discussed resuscitation status. The daughters would like "alternate code" status. They do not want chest compressions of shock but want aggressive care short of resuscitation. We talked about prognosis. I let them know I planned to speak with the bottom sander to get his sense of prognosis and urged them to also ask Dr. Pride when they next saw him. We talked about possible decision points, e.g. when the doctors feel its time to do a tracheostomy. . Advance Directives Living Will: Never completed Health Care Surrogate: Never completed Durable Power of Change Advisor: Never completed Advance Directive Specifics Date completed: Patient has never completed an advanced directive. . Health Care Surrogate(s): There is no written designation of healthcare surrogate. . Documented care wishes: There is no written documentation of healthcare goals/preferences. . Objective Vital Signs Date Time Temp Pulse Resp B/P (MAP) Pulse Ox O2 Delivery O2 Flow Rate FiO2 02/11/18 16:35 94 45 02/11/18 16:00 80 02/11/18 16:00 45 02/11/18 16:00 98.5 80 20 123/60 (81) 95 02/11/18 14:00 81 02/11/18 13:12 93 45 02/11/18 12:00 98.4 85 23 137/65 (89) 95 02/11/18 12:00 85 02/11/18 12:00 45 02/11/18 10:00 81 02/11/18 08:12 96 45 02/11/18 08:00 45 02/11/18 08:00 98.9 81 19 141/66 (91) 97 02/11/18 08:00 81 02/11/18 06:00 80 02/11/18 04:39 98 55 02/11/18 04:00 55 02/11/18 04:00 98.6 80 21 139/65 (89) 100 02/11/18 04:00 80 02/11/18 02:00 84 02/11/18 01:40 70 02/11/18 01:35 92 70 02/11/18 00:00 55 02/11/18 00:00 101.9 94 25 135/63 (87) 95 02/11/18 00:00 94 02/10/18 22:13 99 55 02/10/18 22:00 93 02/10/18 20:00 92 02/10/18 20:00 99.2 92 30 180/79 (112) 96 02/10/18 20:00 55 02/10/18 19:12 96 55 Intake & Output 02/11/18 02/11/18 07:00 19:00 Intake Total 1300 ml Output Total 1220 ml Balance 80 ml IV Total 1050 ml Tube Feeding 250 ml Output Urine Total 1150 ml Chest Tube Drainage Total 70 ml # Bowel Movements 1 . Physical Exam CONSTITUTIONAL/GENERAL: This is an obese patient, minimally responsive, sedated , in the medical intensive care unit bed. No apparent distress. Significant subcutaneous emphysema is present though greatly improved since 02/08/18. TUBES/LINES/DRAINS: Orotracheal tube; orogastric tube; right subclavian central line; bilateral chest tubes; peripheral IV; soft wrist restraints; sequential compressive devices. SKIN: No jaundice, rashes. Ecchymoses on upper extremities. No wounds seen anteriorly. Skin temperature appropriate. Not diaphoretic. EYES: Pupils equal and round. Unable to evaluate extraocular movements. Lids quite swollen from SQ emphysema left worse than right but improving compared faby 02/08 . No scleral icterus. No injection or drainage. Fundi not examined. ENT: Unable to evaluate hearing. Nose without bleeding or purulent drainage. Throat without visible erythema, exudates, masses, or lesions though difficult to assess adequately with intubations. NECK: Neck somewhat difficult to examine due to obesity and SQ emphysema. . Trachea midline. CARDIOVASCULAR: Regular rate/rhythm without murmurs, gallops, or rubs. Unable to assess JVD. RESPIRATORY/CHEST: Bilateral chest tubes. Symmetric respirations on vent. Decreased air movement at bases. No wheezing heard today. Scattered ronchi bilaterally. GASTROINTESTINAL: Abdomen obese, soft, non-tender, nondistended. No hepato- splenomegaly, or palpable masses. Bowel sounds hypoactive GENITOURINARY: Without palpable bladder distension. Alexandre catheter in place. MUSCULOSKELETAL: Extremities without clubbing, cyanosis. Widespread edema vs SQ emphysema (probably the latter). No mottling . LYMPHATICS: Not examined. NEUROLOGICAL: Sedated. No spontaneous movements seen. Will withdraw to noxious stimuli. PSYCHIATRIC: Unable to assess due to level of responsiveness. . Diagnostic Tests Laboratory Laboratory Tests Test 02/09/18 05:00 02/09/18 05:21 02/09/18 11:45 02/10/18 03:30 White Blood Count 21.2 TH/MM3 (4.0-11.0) Red Blood Count 3.01 MIL/MM3 (4.00-5.30) Hemoglobin 8.2 GM/DL (11.6-15.3) Hematocrit 25.4 % (35.0-46.0) Mean Corpuscular Volume 84.4 FL (80.0-100.0) Mean Corpuscular Hemoglobin 27.4 PG (27.0-34.0) Mean Corpuscular Hemoglobin Concent 32.4 % (32.0-36.0) Red Cell Distribution Width 16.2 % (11.6-17.2) Platelet Count 399 TH/MM3 (150-450) Mean Platelet Volume 9.6 FL (7.0-11.0) Neutrophils (%) (Auto) 92.2 % (16.0-70.0) Lymphocytes (%) (Auto) 4.2 % (9.0-44.0) Monocytes (%) (Auto) 2.6 % (0.0-8.0) Eosinophils (%) (Auto) 0.8 % (0.0-4.0) Basophils (%) (Auto) 0.2 % (0.0-2.0) Neutrophils # (Auto) 19.5 TH/MM3 (1.8-7.7) Lymphocytes # (Auto) 0.9 TH/MM3 (1.0-4.8) Monocytes # (Auto) 0.5 TH/MM3 (0-0.9) Eosinophils # (Auto) 0.2 TH/MM3 (0-0.4) Basophils # (Auto) 0.0 TH/MM3 (0-0.2) CBC Comment DIFF FINAL Differential Comment Blood Urea Nitrogen 29 MG/DL (7-18) Creatinine 0.88 MG/DL (0.50-1.00) Random Glucose 198 MG/DL (74-106) Calcium Level 7.8 MG/DL (8.5-10.1) Sodium Level 144 MEQ/L (136-145) Potassium Level 4.3 MEQ/L (3.5-5.1) Chloride Level 106 MEQ/L (98-107) Carbon Dioxide Level 33.2 MEQ/L (21.0-32.0) Anion Gap 5 MEQ/L (5-15) Estimat Glomerular Filtration Rate 65 ML/MIN (>89) Blood Gas Puncture Site RT RADIAL Blood Gas Patient Temperature 98.6 Blood Gas HCO3 32 mmol/L (22-26) Blood Gas Base Excess 7.8 mmol/L (-2-2) Blood Gas Oxygen Saturation 95 % (90-100) Arterial Blood pH 7.44 (7.380-7.420) Arterial Blood Partial Pressure CO2 49 mmHg (38-42) Arterial Blood Partial Pressure O2 88 mmHg (61-120) Arterial Blood Oxygen Content 12.1 Vol % (12.0-20.0) Arterial Blood Carboxyhemoglobin 0.9 % (0-4) Arterial Blood Methemoglobin 0.8 % (0-2) Blood Gas Hemoglobin 9.0 G/DL (12.0-16.0) Oxygen Delivery Device VENTILATOR Blood Gas Ventilator Setting SEE COMMENT Blood Gas Inspired Oxygen 55 % Vancomycin Level Trough 14.6 MCG/ML (5.0-10.0) Random Vancomycin Level 18.8 COMMENT Test 02/11/18 03:55 02/11/18 13:45 White Blood Count 22.3 TH/MM3 (4.0-11.0) Red Blood Count 2.82 MIL/MM3 (4.00-5.30) Hemoglobin 7.7 GM/DL (11.6-15.3) Hematocrit 23.6 % (35.0-46.0) Mean Corpuscular Volume 83.5 FL (80.0-100.0) Mean Corpuscular Hemoglobin 27.1 PG (27.0-34.0) Mean Corpuscular Hemoglobin Concent 32.5 % (32.0-36.0) Red Cell Distribution Width 15.9 % (11.6-17.2) Platelet Count 505 TH/MM3 (150-450) Mean Platelet Volume 8.7 FL (7.0-11.0) Neutrophils (%) (Auto) 90.3 % (16.0-70.0) Lymphocytes (%) (Auto) 5.1 % (9.0-44.0) Monocytes (%) (Auto) 3.7 % (0.0-8.0) Eosinophils (%) (Auto) 0.6 % (0.0-4.0) Basophils (%) (Auto) 0.3 % (0.0-2.0) Neutrophils # (Auto) 20.1 TH/MM3 (1.8-7.7) Lymphocytes # (Auto) 1.1 TH/MM3 (1.0-4.8) Monocytes # (Auto) 0.8 TH/MM3 (0-0.9) Eosinophils # (Auto) 0.1 TH/MM3 (0-0.4) Basophils # (Auto) 0.1 TH/MM3 (0-0.2) CBC Comment AUTO DIFF Differential Comment AUTO DIFF CONFIRMED Blood Urea Nitrogen 25 MG/DL (7-18) Creatinine 0.72 MG/DL (0.50-1.00) Random Glucose 117 MG/DL (74-106) Total Protein 5.9 GM/DL (6.4-8.2) Albumin 0.8 GM/DL (3.4-5.0) Calcium Level 7.7 MG/DL (8.5-10.1) Magnesium Level 2.3 MG/DL (1.5-2.5) Alkaline Phosphatase 329 U/L (45-117) Aspartate Amino Transf (AST/SGOT) 81 U/L (15-37) Alanine Aminotransferase (ALT/SGPT) 114 U/L (10-53) Total Bilirubin 0.6 MG/DL (0.2-1.0) Sodium Level 144 MEQ/L (136-145) Potassium Level 4.0 MEQ/L (3.5-5.1) Chloride Level 106 MEQ/L (98-107) Carbon Dioxide Level 31.8 MEQ/L (21.0-32.0) Anion Gap 6 MEQ/L (5-15) Estimat Glomerular Filtration Rate 82 ML/MIN (>89) Hepatitis A IgM Antibody NONREACTIVE (NONREACTIVE) Hepatitis B Surface Antigen NONREACTIVE (NONREACTIVE) Hepatitis B Core IgM Antibody NONREACTIVE (NONREACTIVE) Hepatitis C IgG Antibody NONREACTIVE (NONREACTIVE) . Result Diagram: 02/11/18 0355 02/11/18 0355 Microbiology Microbiology Date/Time Source Procedure Growth Status 02/10/18 21:35 Blood Other Aerobic Blood Culture - Preliminary NO GROWTH IN 1 DAY Resulted 02/10/18 21:35 Blood Other Anaerobic Blood Culture - Final QNS - SEE AEROBE REPORT Resulted 02/10/18 21:30 Blood Other Aerobic Blood Culture - Preliminary NO GROWTH IN 1 DAY Resulted 02/10/18 21:30 Blood Other Anaerobic Blood Culture - Preliminary NO GROWTH IN 1 DAY Resulted 02/10/18 13:53 Genital Vaginal Genital Culture - Preliminary Gram Negative Jeremie Zelda Albicans Resulted 02/10/18 22:00 Sputum Endotracheal Gram Stain - Final Resulted 02/10/18 22:00 Sputum Endotracheal Sputum Culture - Preliminary IMMATURE GROWTH - REINCUBATE Resulted . Imaging Last Impressions Chest X-Ray 02/11/18 0600 Signed Impressions: Service Date/Time: Sunday, February 11, 2018 03:49 - CONCLUSION: Stable chest with diffuse bilateral parenchymal opacities. Karri Muhammad MD Liver Ultrasound 02/11/18 0000 Signed Impressions: Service Date/Time: Sunday, February 11, 2018 09:34 - CONCLUSION: Nondiagnostic examination CT scan is recommended for further evaluation if clinically indicated. To Vaughn MD Neck CT 02/10/18 0000 Signed Impressions: Service Date/Time: Saturday, February 10, 2018 14:57 - CONCLUSION: 1. Extensive subcutaneous edema in the neck which has dissected cephalad from the chest and is worse on the left side. 2. Support apparatus as above. See chest CT report for evaluation of lungs. 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 No adenopathy. Everett Ng MD Chest CT 02/10/18 0000 Signed Impressions: Service Date/Time: Saturday, February 10, 2018 14:52 - CONCLUSION: 1. Loculated hydropneumothorax in the left anterior chest not currently drained by chest tube. 2. Multifocal areas of dense consolidation and cavitation in both lungs but significantly worse on the right side with considerable progression since January 30 comparison. Primary differential diagnosis is infection or septic embolic disease. 3. Extensive subcutaneous air has developed bilaterally. There is a small right pneumothorax. Everett Ng MD . Procedures * Intubation/mechanical ventilation right subclavian * Central line placement * Bilateral chest tube placement * Transesophageal echo * . Assessment and Plan Disease Oriented Problem List: (1) PNA (pneumonia) Comment: MRSA + Enterobacter (2) Respiratory failure (3) ARDS (adult respiratory distress syndrome) (4) Sepsis Comment: MRSA (5) Anemia (6) Hypoalbuminemia (7) Bilateral pneumothoraces Comment: Recurrent and multiple pneumothoraces . (8) ARF (acute renal failure) Comment: REsolving Symptom Scale: (1) Pain 0-10 Scale: Unable to quantify Comment: No known prehospitalization pain syndromes. Current sources of discomfort might include orotracheal and orogastric intubations; vascular access lines; restraints; Alexandre catheter; chest tubes; prolonged bedbound status. (2) Dyspnea 0-10 Scale: Unable to quantify Comment: Patient with underlying pneumonia and bilateral pneumothoraces. Dyspnea currently managed with ventilatory support. (3) Encephalopathy 0-10 Scale: Unable to quantify Pertinent Non-Medical Issues Psychosocial: Has a male partner . She normally lives with him in a manufactured home. He is a smoker. Her 2 daughters are now down from [place] to help. 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 Hair Specialist visits would be appreciated. Legal: There are no advance directives. Without written designation of a healthcare surrogate, proxy decision making would fall to both adult daughters. Ethical issues impacting care: Patient is currently incapacitated to make her own medical decisions. It is unclear if/when she will become capacitated to do so. . Important Contacts Alona Caballero (daughter and co-health care proxy) [phone] Zenobia Clay (daughter and co-health care proxy) [phone] Brett Mackay (boyfriend -- NO DECISION MAKING RIGHTS unless there is written documentation saying otherwise) [phone] . Prognosis On the one hand, other than her morbid obesity, this patient has very few health problems and has managed to stay out of the hospital. Ordinarily, we would expect her to respond well to treatment and improve.. This patient declined incredibly quickly and has very severe respiratory disease in spite of the fact that she has no known underlying chronic respiratory illness.She has multiple pneumothoraces. She has developed Enterobacter pneumonia on top of her MRSA pneumonia. She has had persistent elevated WBCs and bandemia. It remains unclear if she will pull through this. It is becoming more apparent that she might require tracheostomy if ongoing aggressive care is desired. Given her relatively good healthcare condition just days before the onset of this illness, she certainly deserves a decent trial of aggressive care. . . Code Status: Alternative Code (Per discussion with two daughters on 02/11/18) Plan == Code Status: ALT CODE (no shock; no chest compression) -- per discussion with both daughters on 02/11/18 == Medical Decision Making: Patient is currently incapacitated to make her own healthcare decisions. It is unclear if/when she will recover capacity to do so. Since there is no written designation of healthcare surrogacy that we are aware of, proxy decision making would fall to her 2 adult children -- Alona Rosenbaumig and Zenobia Clay. == Goals of medical treatment: Given the patient was in good health just days before the onset of this illness, goals continue to be aggressive short of shock and chest compressions. However, daughters have seen lack of progress and don't think the patient would want to be maintained indefinitely on ventilatory support. If physicians do not think she will have a good chance of eventually being weaned, they will probably not want to go forward with tracheostomy. == Symptoms: * Pain: No known pre-hospitalization pain syndromes. Current sources of discomfort might include orotracheal and orogastric intubations; vascular access lines; restraints; Alexandre catheter; chest tubes; prolonged bedbound status. Currently on fentanyl/midazolam. No further recommendations at this time. * Dyspnea: Patient with underlying pneumonia and bilateral pneumothoraces. Dyspnea currently managed with ventilatory support. Bilateral chest tubes in place. No further recommendations at this time. * Encephalopathy: Patient is currently sedated but underlying encephalopathy probably secondary to her sepsis. Hopefully this will improve if we are able to make headway with the underlying infection. No further recommendations at this time. == Patient was intubated on 01/31/18 -- tracheostomy decision is coming. Family will likely want to go through with trach if specialist believe there is still a reasonable chance that the patient will improve well enough to get off the ventilator and return to a life of independence. == Palliative care will continue to follow to assist with symptom management and to further clarify goals of medical treatment as the clinical course evolves. . Time Spent Total Floor Time (mins): 65 (Total time included chart review; patient exam; collaboration with bedside nurse; discussion with cardiothoracic surgery; discussion with pulmonology; and above referenced family conferencde with the health care proxies. ) Face to Face Time (mins): 10 >50% Counseling/Coord of Care: Yes Attestation To help prompt me to consider important information that might be impacting today's encounter and assessment, information from prior notes written by myself or my colleagues may have been "brought forward" into today's note. My signature on this note, however, is an attestation that I personally performed the exam, history, and/or decision-making noted today, and, unless otherwise indicated, the interactions with patient, family, and staff as well as the review of records all occurred today. I also attest that the listed assessment and stated plan reflect my best clinical judgment today based on the combination of historical information, prior notes, and today's exam/ interactions. When time spent is documented, it refers only to time spent today by the signer, or if indicated, combined time spent today by collaborating physician/nurse practitioner. . Hammad Butcher MD Feb 11, 2018 19:05
[2018-02-12] VITALS (19 sets, daily range): BP systolic 113–140; BP diastolic 56–67; PULSE 73–80; RESP 12–23; TEMP 97.7–98.7; O2SAT 94–100
[2018-02-12] MEDS: LINEZOLID 600 MG PREMIX 300 ML IV SCH ×2 (00:27→13:19)
[2018-02-12] MEDS: CHLORHEXIDINE GLUCONATE 2 % 1 PACK (2 CLOTHS) TOP SCH ×2 (04:15→19:20)
--- NOTE | 2018-02-12 04:19 | RADRPT ---
EXAM DATE/TIME: 02/12/2018 03:12 [facility] COMPARISON: CHEST SINGLE AP, February 11, 2018, 3:49. INDICATIONS : Short of breath. MEDICAL HISTORY : Sepsis. SURGICAL HISTORY : None. ENCOUNTER: Subsequent ACUITY: 2 weeks PAIN SCORE: 0/10 LOCATION: Bilateral chest FINDINGS: A single view of the chest demonstrates scattered bilateral pleural-parenchymal densities. Subcutaneo us emphysema bilaterally. Endotracheal tube, nasogastric tube and bilateral chest tubes stable. No de finite pneumothorax bilaterally. CONCLUSION: Stable chest. No pneumothorax seen. Karri Muhammad MD on February 12, 2018 at 4:17 Board Certified Radiologist. This report was verified electronically.
[2018-02-12] MEDS: DILTIAZEM HCL 30 MG TAB PO SCH ×4 (05:13→23:59)
[2018-02-12] MEDS: HEPARIN SODIUM - SQ 10,000 UNITS/ML VIAL SQ SCH ×3 (05:13→20:21)
[2018-02-12] MEDS: INSULIN ASPART SUPPLEMENTAL SCALE SQ SCH ×4 (05:14→23:23)
[2018-02-12] MEDS: MEROPENEM INJ 500 MG in SODIUM CHLORIDE 0.9% INJ 100 ML IV SCH ×2 (05:14→13:18)
[2018-02-12] MEDS: fentaNYL 2,500 MCG/NS 250 ML IV PRN ×2 (05:15→18:03)
[2018-02-12 05:37] LABS: AUTOMATED NEUTROPHIL # 16.8 TH/MM3 (1.8-7.7); BASOPHIL # 0.1 TH/MM3 (0-0.2); BASOPHIL % 0.5 % (0.0-2.0); EOSINOPHIL # 0.1 TH/MM3 (0-0.4); EOSINOPHIL % 0.8 % (0.0-4.0); HEMATOCRIT 24.6 % (35.0-46.0); HEMOGLOBIN 8.1 GM/DL (11.6-15.3); LYMPH % 5.3 % (9.0-44.0); MEAN CELL VOLUME 84.1 FL (80.0-100.0); MEAN CORPUSCULAR HEMOGLOBIN 27.5 PG (27.0-34.0); MEAN CORPUSCULAR HGB CONC 32.7 % (32.0-36.0); MEAN PLATELET VOLUME 8.3 FL (7.0-11.0); MONO % 3.4 % (0.0-8.0); MONOCYTE # 0.6 TH/MM3 (0-0.9); PLATELET COUNT 632 TH/MM3 (150-450); RED BLOOD COUNT 2.93 MIL/MM3 (4.00-5.30); RED CELL DISTRIBUTION WIDTH 15.9 % (11.6-17.2); WHITE BLOOD COUNT 18.7 TH/MM3 (4.0-11.0)
[2018-02-12 06:02] LABS: ALBUMIN 0.8 GM/DL (3.4-5.0); BICARBONATE 31.2 MEQ/L (21.0-32.0); BLOOD UREA NITROGEN 21 MG/DL (7-18); CALCIUM 7.9 MG/DL (8.5-10.1); CHLORIDE 104 MEQ/L (98-107); CREATININE 0.66 MG/DL (0.50-1.00); GLOMERULAR FILTRATION RATE 91 ML/MIN (>89); GLUCOSE,RANDOM 152 MG/DL (74-106); MAGNESIUM 2.2 MG/DL (1.5-2.5); SODIUM (NA) 140 MEQ/L (136-145)
[2018-02-12 06:03] LABS: ALT (GPT) 78 U/L (10-53); AST (GOT) 44 U/L (15-37); PHOSPHORUS 3.5 MG/DL (2.5-4.9)
[2018-02-12 06:05] LABS: ALKALINE PHOSPHATASE 354 U/L (45-117); TOTAL BILIRUBIN ADULT 0.8 MG/DL (0.2-1.0); TOTAL PROTEIN 6.4 GM/DL (6.4-8.2)
[2018-02-12] MEDS: PROPOFOL 1000 MG/100 ML IV PRN ×3 (07:04→18:03)
[2018-02-12] MEDS: CHLORHEXIDINE 0.12% (ORAL KIT) 15 ML CUP MT SCH ×2 (07:18→19:19)
[2018-02-12] MEDS: FAMOTIDINE 20 MG TAB PO SCH ×2 (07:19→20:21)
[2018-02-12] MEDS: DOCUSATE SODIUM 50 MG/SENNA 8.6 MG TAB PO SCH ×2 (07:19→20:21)
[2018-02-12] MEDS: FUROSEMIDE 40 MG/4 ML VIAL IV PUSH SCH ×2 (07:19→20:18)
[2018-02-12] MEDS: ASPIRIN 81 MG CHEW TAB CHEW SCH (07:19)
[2018-02-12] MEDS: SODIUM CHLORIDE 0.9% FLUSH 10 ML FLUSH IV FLUSH SCH ×2 (07:20→20:18)
[2018-02-12] MEDS ORDERED: POTASSIUM CHLORIDE 25 MEQ EFFERVESCENT TAB PO PRN (10:00)
[2018-02-12] MEDS ORDERED: POTASSIUM CHLOR 40 MEQ PREMIX 100 ML IV PRN (10:00)
[2018-02-12] MEDS ORDERED: POTASSIUM CHLOR 20 MEQ PREMIX 100 ML IV PRN (10:00)
[2018-02-12] MEDS ORDERED: MAGNESIUM SULFATE INJ 4 GM in SODIUM CHLORIDE 0.9% INJ 92 ML IV PRN (10:00)
[2018-02-12] MEDS ORDERED: SODIUM PHOSPHATE INJ 30 MMOL in SODIUM CHLOR 0.9% 250 ML INJ 240 ML IV PRN (10:00)
[2018-02-12] MEDS ORDERED: POTASSIUM PHOSPHATE MONOBASIC 500 MG TAB PO PRN (10:00)
[2018-02-12] MEDS ORDERED: MAGNESIUM OXIDE 400 MG TAB PO PRN (10:00)
[2018-02-12] MEDS ORDERED: MAGNESIUM SULFATE INJ 2 GM in SODIUM CHLORIDE 0.9% INJ 96 ML IV PRN (10:00)
[2018-02-12] MEDS ORDERED: POTASSIUM PHOSPHATE INJ 30 MMOL in SODIUM CHLOR 0.9% 250 ML INJ 250 ML IV PRN (10:00)
[2018-02-12] MEDS ORDERED: POTASSIUM PHOSPHATE MONOBASIC 500 MG TAB PO/TUBE PRN (10:00)
--- NOTE | 2018-02-12 10:03 | HHI.CCPN ---
Subjective Remarks/Hospital Course 01/30: 62-year-old female presents for evaluation of increasing shortness of breath and chest pain. She reports 1 week of coughing 3 days of pain in her left chest which radiates to her back, which prompted the visit to the emergency room yesterday. She rates her pain a 6 out of 10. She reports fevers , chills, fatigue, mild nausea. She denies any abdominal pain, vomiting. Patient denies any significant past medical history. Symptom onset was gradual , symptom severity is severe, there are no alleviating factors. Patient states that she has been taking the azithromycin antibiotics that were prescribed to her. She denies any current or historical tobacco use. 01/31: Intubated at 1 AM this morning and placed on mechanical ventilation due to worsening respiratory distress. Currently sedated, orally intubated on mechanical ventilation. 02/01: Remains sedated, orally intubated on mechanical ventilation. Went into A. fib with RVR this morning. Loaded with amiodarone, started on amiodarone drip and given digoxin 0.5 mg IV 02/02: Remains sedated, orally intubated on mechanical ventilation. Right sided pigtail catheter in place with 1+ air leak. Converted to sinus rhythm overnight. Remains on amiodarone gtt. 02/03: Remains sedated, orally intubated on mechanical ventilation. 1+ air leak and right sided pigtail catheter. Tolerating tube feeds. Remains on amiodarone gtt. 02/04: Noted to have pneumothorax on the left side this morning on routine chest x -ray which appeared to be under tension. Right sided pigtail catheter placed by Dr. Peña with reexpansion of lung. Patient remains sedated, orally intubated on mechanical ventilation. 1+ airleak and bilateral chest tubes noted. 02/05: Afebrile. Persistent leukocytosis, bilateral chest tubes continue on wall suction. Chest x-ray pending this a.m.. Patient scheduled for GRANT today, discussed with Dr. Vázquez. Patient continues on amiodarone infusion with sinus rhythm. Postprocedure GRANT,this afternoon, the patient became extremely agitated, noted significant increase in subcu emphysema, peak pressures 50's, O2 saturation significantly decreased to 78-80 %. Stat chest x-ray performed patient was noted to have a significant right pneumothorax. 20 Indonesian right chest tube placement emergently, with increase in O2 saturation decrease in peak inspiratory pressures. 02/06: Afebrile. Patient with persistent bilateral pneumothoraces, with diffuse bilateral infiltrates and massive SQ emphysema. O2 requirement significantly increased during the night, PIP 38-44. 28 F chest tubes were placed bilaterally with resolution of left pneumothorax and minimization of right pneumothorax, and improved oxygenation. 02/07: TMax 100.1 Chest tubes remain on suction. Resolution of pneumothoraces, continued extensive SQ emphysema. Persistent leukocytosis noted. FiO2 weaned to 50%. 02/08: Late entry note patient seen at 1250. Attempts at CPAP trials, unsuccessful this morning. FiO2 decreased 50%, with adequate oxygenation. 02/09: Afebrile. The patient was transitioned to CPAP trials with pressure support of 22/8. FiO2 currently at 55% continuing to wean. Patient noted with positive fluid balance Lasix 40 mg IV now, patient is initiated on Lasix 40 daily. Patient with positive air leak in chest tubes #1-28 Indonesian right and #3 pigtail left, both at 2+. Sedation vacation initiated early this a.m. patient neurologically intact. Patient continues on moderate sedation for CPAP to maintain ventilator synchrony plan for transitioning to Precedex. Noted improvement with subcu emphysema. Extensive discussion with patient's daughter regarding a possibility of a tracheostomy if unsuccessful with ventilator weaning process. 02/10: Subcutaneous emphysema has worsened overnight per RN who took care of the patient yesterday, now extending to the upper chest left neck and to the left side of the face including left eyelids. No increase in FiO2 requirement currently on 55%. I have reduced inspiratory pressure from 32 to 28. FiO2 reduced to 50%. Will check a repeat chest x-ray in afternoon if needed. Will request CT surgical evaluation for persistent subcutaneous emphysema despite 2 chest tubes bilaterally 02/11 Patient is sedated with Diprivan, Versed and Fentanyl drips. T: 101.[address] guided chest tube placement by IR today 02/12 No events overnight. Remains sedated and intubated. Afebrile. On PC/AC with PEEP: 8 and FIO2 40%. Objective Vital Signs Date Time Temp Pulse Resp B/P (MAP) Pulse Ox O2 Delivery O2 Flow Rate FiO2 02/12/18 08:19 94 40 02/12/18 08:00 97.7 77 23 122/58 (79) Intake and Output 02/12/18 02/12/18 02/13/18 08:00 16:00 00:00 Intake Total 1572 ml Output Total 1270 ml Balance 302 ml Result Diagram: 02/12/18 0445 02/12/18 0445 Other Results Laboratory Tests Test 02/11/18 13:45 02/12/18 04:45 Hepatitis A IgM Antibody NONREACTIVE Hepatitis B Surface Antigen NONREACTIVE Hepatitis B Core IgM Antibody NONREACTIVE Hepatitis C IgG Antibody NONREACTIVE White Blood Count 18.7 TH/MM3 Red Blood Count 2.93 MIL/MM3 Hemoglobin 8.1 GM/DL Hematocrit 24.6 % Mean Corpuscular Volume 84.1 FL Mean Corpuscular Hemoglobin 27.5 PG Mean Corpuscular Hemoglobin Concent 32.7 % Red Cell Distribution Width 15.9 % Platelet Count 632 TH/MM3 Mean Platelet Volume 8.3 FL Neutrophils (%) (Auto) 90.0 % Lymphocytes (%) (Auto) 5.3 % Monocytes (%) (Auto) 3.4 % Eosinophils (%) (Auto) 0.8 % Basophils (%) (Auto) 0.5 % Neutrophils # (Auto) 16.8 TH/MM3 Lymphocytes # (Auto) 1.0 TH/MM3 Monocytes # (Auto) 0.6 TH/MM3 Eosinophils # (Auto) 0.1 TH/MM3 Basophils # (Auto) 0.1 TH/MM3 CBC Comment DIFF FINAL Differential Comment Blood Urea Nitrogen 21 MG/DL Creatinine 0.66 MG/DL Random Glucose 152 MG/DL Total Protein 6.4 GM/DL Albumin 0.8 GM/DL Calcium Level 7.9 MG/DL Phosphorus Level 3.5 MG/DL Magnesium Level 2.2 MG/DL Alkaline Phosphatase 354 U/L Aspartate Amino Transf (AST/SGOT) 44 U/L Alanine Aminotransferase (ALT/SGPT) 78 U/L Total Bilirubin 0.8 MG/DL Sodium Level 140 MEQ/L Potassium Level 3.1 MEQ/L Chloride Level 104 MEQ/L Carbon Dioxide Level 31.2 MEQ/L Anion Gap 5 MEQ/L Estimat Glomerular Filtration Rate 91 ML/MIN Imaging Last Impressions Chest X-Ray 02/12/18 0600 Signed Impressions: Service Date/Time: Monday, February 12, 2018 03:12 - CONCLUSION: Stable chest. No pneumothorax seen. Karri Muhammad MD Liver Ultrasound 02/11/18 0000 Signed Impressions: Service Date/Time: Sunday, February 11, 2018 09:34 - CONCLUSION: Nondiagnostic examination CT scan is recommended for further evaluation if clinically indicated. To Vaughn MD Neck CT 02/10/18 0000 Signed Impressions: Service Date/Time: Saturday, February 10, 2018 14:57 - CONCLUSION: 1. Extensive subcutaneous edema in the neck which has dissected cephalad from the chest and is worse on the left side. 2. Support apparatus as above. See chest CT report for evaluation of lungs. 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 No adenopathy. Everett Ng MD Chest CT 02/10/18 0000 Signed Impressions: Service Date/Time: Saturday, February 10, 2018 14:52 - CONCLUSION: 1. Loculated hydropneumothorax in the left anterior chest not currently drained by chest tube. 2. Multifocal areas of dense consolidation and cavitation in both lungs but significantly worse on the right side with considerable progression since January 30 comparison. Primary differential diagnosis is infection or septic embolic disease. 3. Extensive subcutaneous air has developed bilaterally. There is a small right pneumothorax. Everett Ng MD Procedures 02/05- Right emergent 20 F chest tube placement 02/06: Left 28 Indonesian chest tube placement, right chest tube replacement 28 Indonesian Objective Remarks HEENT/ Neuro: Sedated, orally intubated, Pallor present, no icterus, tongue/ mucosa moist significant SQ emphysema. Left side of the face eyelid has significant subcu emphysema Neck: No JVD. Left side of the neck with significant subcutaneous emphysema Chest/Pulm: on mech vent, air entry decreased bilaterally at bases, scattered rhonchi bilaterally. Bilateral pigtail catheters insitu., and 28F chest tubes bilaterally to -40cm H20. CVS: S1-S2 regular, no murmur GI/abdomen: soft, nontender, bowel sounds hypoactive Neuro: RASS -2, currently on fentanyl, propofol and Versed infusions. Patient moving extremities 4 Extremities: warm bilaterally, 1+bilateral peripheral edema upper and lower extremities A/P Assessment and Plan Neuro: Neuro checks per ICU protocol Versed, propofol and fentanyl to maintain ventilator synchrony. Daily sedation vacaton Pulm: Acute hypoxemic respiratory failure MRSA pneumonia MRSA bacteremia COPD Persistent bilateral pneumothorax, significant subcutaneous emphysema Post Influenza pneumonia? Continue vent support keep sats >92%, will need trach once more stable - DuoNeb scheduled and when necessary - Titrated off IV steroids by 02/03 Bilateral pigtail catheters in place -02/06; chest x-ray diffuse bilateral infiltrates massive subcu emphysema bilateral pneumothoraces. B/l chest tubes placed CXR today b/; pulm opacities, sub Q emphysema, no PTX. CT's in place -Consult thoracic surgery for significant subcutaneous emphysema despite bilateral chest tubes 02/[address] Kandice Bo who recommended to reposition CT and consult CT surgery spoke to Dr. Thornton and states patient is not a candidate for any surgical intervention recommend for IR to place CT on left for small anterior hydroPTX. Discussed with Dr. Jensen from IR patient might either need repositioning CT under fluro or might need a new CT. . Renal: Acute kidney injury-resolved Dehydration-resolved - Maintain Alexandre -Monitor renal function, I/O's, electrolytes replacement per protocol. on Lasix 40mg BID Cardiovascular: A. fib with RVR (converted to NSR 02/02) -02/05 amiodarone infusion discontinued. - 02/05 GRANT -no valvular vegetations. EF 55-60%, trace MVR, mild TVR, PAP 35 Monitor HR and BP keep MAP>65mmHfg GI Elevated LFT;s Check US liver and Hepatitis profile. -Tube feeds Jevity 1.5 60 cc/hr at goal,- on hold for possible CT placement by IR today -Bowel regimen-last BM 02/08 -Zofran for nausea ID: MRSA, Enterobacter pneumonia MRSA Bacteremia - Antibiotics per ID. On Zyvox, Vanco, Merrem. Monitor for signs of infections ( Fever, WBC) -Repeat blood cultures per ID. Bal culture/blood cultures growing MRSA. Legionella and strep pneumo antigen negative -ID- Dr. Singleton following. 02/10 Sputum: MRSA 02/10 BC: NGTD Endocrine: Hyperglycemia Medium scale sliding scale insulin dosing Glucose monitoring per ICU protocol DVT GI prophylaxis - Teds SCDs - Subcutaneous heparin - Pepcid Lines: Right subclavian central line inserted 02/01. Peripheral IVs 2 Palliative care is following Level 3 Lenard Qureshi MD Feb 12, 2018 10:03
[2018-02-12] MEDS: POTASSIUM CHLOR 40 MEQ PREMIX 100 ML IV PRN (11:11)
[2018-02-12] MEDS: MIDAZOLAM 100 MG/NS 100 ML DRIP Premix IV PRN (11:22)
--- NOTE | 2018-02-12 12:38 | HHI.HCPN ---
Reason for visit a. To assist with evaluation and management of symptoms including: dyspnea; encephalopathy, pain b. To assist medical decision maker(s) with: better understanding of current medical conditions; weighing benefits/burdens of medical treatment options; making medical treatment decisions. . Subjective/Interval History Palliative care follow-up for further clarifications of goals of care, emotional support. Patient seen and medical ICU. She remains endotracheally intubated on mechanical ventilation. Currently sedated on propofol, fentanyl and Versed. Unresponsive to verbal or tactile stimuli. Cardiothoracic surgery has been consulted for evaluation of persistent hydropneumothorax despite multiple chest tubes bilaterally. Patient not a candidate for any surgical intervention. Cardiothoracic surgery recommending IR reevaluation. Patient with multiple areas of dense consolidation and cavitation in both lungs, significantly worsened on the right side with considerable progression since prior study. Repeat sputum culture 02/10 revealing S. Aureus MRSA. Infectious disease following. Laboratory workup today revealing persistent leukocytosis 18.7, Hgb stable at 8.1. BUN/creatinine 21/0.66. Pulmonology following. Met with patient's daughter Connor at bedside. Medical update provided. Daughters with a good understanding of patient's clinical condition and guarded prognosis. Patient without significant clinical improvement in spite of ongoing aggressive management. Discuss a tracheostomy/PEG tube placement discussion will be approaching this patient is unable to medically extubate/ventilator dependent. Daughters verbalized understanding. Goal of therapy at this time is to allow a few more days for clinical improvement, continue aggressive management short of no cardiac resuscitation. Reviewed the patient remains a very high risk for further complications, continued decline and . Pending IR recommendations. Case discussed with bedside IRVIN Castle. . Family/friend interactions See interval note. . Advance Directives Living Will: Never completed Health Care Surrogate: Never completed Durable Power of Dispatcher Clerk: Never completed Advance Directive Specifics Date completed: Patient has never completed an advanced directive. . Health Care Surrogate(s): There is no written designation of healthcare surrogate. . Documented care wishes: There is no written documentation of healthcare goals/preferences. . Significant change in goals: Aggressive management short of no cardiac resuscitation. . Objective Vital Signs Date Time Temp Pulse Resp B/P (MAP) Pulse Ox O2 Delivery O2 Flow Rate FiO2 02/12/18 11:25 99 40 02/12/18 10:00 76 02/12/18 08:19 94 40 02/12/18 08:00 97.7 77 23 122/58 (79) 95 02/12/18 08:00 77 02/12/18 08:00 40 02/12/18 06:00 80 02/12/18 04:44 96 40 02/12/18 04:00 98.5 79 19 140/67 (91) 96 02/12/18 04:00 79 02/12/18 04:00 45 02/12/18 02:00 77 02/12/18 01:18 96 40 02/12/18 00:00 77 02/12/18 00:00 45 02/12/18 00:00 98.5 77 21 113/58 (76) 96 02/11/18 22:38 96 45 02/11/18 22:00 76 02/11/18 20:00 45 02/11/18 20:00 75 02/11/18 20:00 98.6 75 19 121/55 (77) 96 02/11/18 19:51 96 45 02/11/18 18:00 74 02/11/18 16:35 94 45 02/11/18 16:00 80 02/11/18 16:00 45 02/11/18 16:00 98.5 80 20 123/60 (81) 95 02/11/18 14:00 81 02/11/18 13:12 93 45 Intake & Output 02/12/18 02/12/18 07:00 19:00 Intake Total 1672 ml Output Total 1270 ml Balance 402 ml IV Total 1265 ml Tube Feeding 347 ml Other 60 ml Output Urine Total 1250 ml Chest Tube Drainage Total 20 ml # Bowel Movements 0 Physical Exam CONSTITUTIONAL/GENERAL: This is an obese patient, sedated, in the medical intensive care unit bed. No apparent distress. TUBES/LINES/DRAINS: Orotracheal tube; orogastric tube; right subclavian central line; bilateral chest tubes x2; peripheral IV; soft wrist restraints; sequential compressive devices. SKIN: No jaundice, rashes. Ecchymoses on upper extremities. No wounds seen anteriorly. Skin temperature appropriate. Not diaphoretic. EYES: Pupils equal and round. Unable to evaluate extraocular movements. Lids quite swollen from SQ emphysema left worse than right. No scleral icterus. No injection or drainage. ENT: Unable to evaluate hearing. Nose without bleeding or purulent drainage. Moist oral mucosa. NECK: Neck somewhat difficult to examine due to obesity and SQ emphysema. Trachea midline. CARDIOVASCULAR: Regular rate/rhythm without murmurs, gallops, or rubs. RESPIRATORY/CHEST: Bilateral chest tubes. Symmetric respirations on vent. Decreased air movement at bases. Scattered rhonchi bilaterally. GASTROINTESTINAL: Abdomen obese, large, soft. Hypoactive bowel sounds. GENITOURINARY: Without palpable bladder distension. Alexandre catheter in place. MUSCULOSKELETAL: Extremities without clubbing, cyanosis. Widespread edema vs SQ emphysema. No mottling. NEUROLOGICAL: Sedated. No spontaneous movements seen. PSYCHIATRIC: Unable to assess due to level of responsiveness. . Diagnostic Tests Laboratory Laboratory Tests Test 02/10/18 03:30 02/11/18 03:55 02/11/18 13:45 02/12/18 04:45 Random Vancomycin Level 18.8 COMMENT White Blood Count 22.3 TH/MM3 (4.0-11.0) 18.7 TH/MM3 (4.0-11.0) Red Blood Count 2.82 MIL/MM3 (4.00-5.30) 2.93 MIL/MM3 (4.00-5.30) Hemoglobin 7.7 GM/DL (11.6-15.3) 8.1 GM/DL (11.6-15.3) Hematocrit 23.6 % (35.0-46.0) 24.6 % (35.0-46.0) Mean Corpuscular Volume 83.5 FL (80.0-100.0) 84.1 FL (80.0-100.0) Mean Corpuscular Hemoglobin 27.1 PG (27.0-34.0) 27.5 PG (27.0-34.0) Mean Corpuscular Hemoglobin Concent 32.5 % (32.0-36.0) 32.7 % (32.0-36.0) Red Cell Distribution Width 15.9 % (11.6-17.2) 15.9 % (11.6-17.2) Platelet Count 505 TH/MM3 (150-450) 632 TH/MM3 (150-450) Mean Platelet Volume 8.7 FL (7.0-11.0) 8.3 FL (7.0-11.0) Neutrophils (%) (Auto) 90.3 % (16.0-70.0) 90.0 % (16.0-70.0) Lymphocytes (%) (Auto) 5.1 % (9.0-44.0) 5.3 % (9.0-44.0) Monocytes (%) (Auto) 3.7 % (0.0-8.0) 3.4 % (0.0-8.0) Eosinophils (%) (Auto) 0.6 % (0.0-4.0) 0.8 % (0.0-4.0) Basophils (%) (Auto) 0.3 % (0.0-2.0) 0.5 % (0.0-2.0) Neutrophils # (Auto) 20.1 TH/MM3 (1.8-7.7) 16.8 TH/MM3 (1.8-7.7) Lymphocytes # (Auto) 1.1 TH/MM3 (1.0-4.8) 1.0 TH/MM3 (1.0-4.8) Monocytes # (Auto) 0.8 TH/MM3 (0-0.9) 0.6 TH/MM3 (0-0.9) Eosinophils # (Auto) 0.1 TH/MM3 (0-0.4) 0.1 TH/MM3 (0-0.4) Basophils # (Auto) 0.1 TH/MM3 (0-0.2) 0.1 TH/MM3 (0-0.2) CBC Comment AUTO DIFF DIFF FINAL Differential Comment AUTO DIFF CONFIRMED Blood Urea Nitrogen 25 MG/DL (7-18) 21 MG/DL (7-18) Creatinine 0.72 MG/DL (0.50-1.00) 0.66 MG/DL (0.50-1.00) Random Glucose 117 MG/DL (74-106) 152 MG/DL (74-106) Total Protein 5.9 GM/DL (6.4-8.2) 6.4 GM/DL (6.4-8.2) Albumin 0.8 GM/DL (3.4-5.0) 0.8 GM/DL (3.4-5.0) Calcium Level 7.7 MG/DL (8.5-10.1) 7.9 MG/DL (8.5-10.1) Magnesium Level 2.3 MG/DL (1.5-2.5) 2.2 MG/DL (1.5-2.5) Alkaline Phosphatase 329 U/L (45-117) 354 U/L (45-117) Aspartate Amino Transf (AST/SGOT) 81 U/L (15-37) 44 U/L (15-37) Alanine Aminotransferase (ALT/SGPT) 114 U/L (10-53) 78 U/L (10-53) Total Bilirubin 0.6 MG/DL (0.2-1.0) 0.8 MG/DL (0.2-1.0) Sodium Level 144 MEQ/L (136-145) 140 MEQ/L (136-145) Potassium Level 4.0 MEQ/L (3.5-5.1) 3.1 MEQ/L (3.5-5.1) Chloride Level 106 MEQ/L (98-107) 104 MEQ/L (98-107) Carbon Dioxide Level 31.8 MEQ/L (21.0-32.0) 31.2 MEQ/L (21.0-32.0) Anion Gap 6 MEQ/L (5-15) 5 MEQ/L (5-15) Estimat Glomerular Filtration Rate 82 ML/MIN (>89) 91 ML/MIN (>89) Hepatitis A IgM Antibody NONREACTIVE (NONREACTIVE) Hepatitis B Surface Antigen NONREACTIVE (NONREACTIVE) Hepatitis B Core IgM Antibody NONREACTIVE (NONREACTIVE) Hepatitis C IgG Antibody NONREACTIVE (NONREACTIVE) Phosphorus Level 3.5 MG/DL (2.5-4.9) Result Diagram: 02/12/18 0445 02/12/185 Microbiology Microbiology Date/Time Source Procedure Growth Status 02/10/18 21:35 Blood Other Aerobic Blood Culture - Preliminary NO GROWTH IN 2 DAYS Resulted 02/10/18 21:35 Blood Other Anaerobic Blood Culture - Final QNS - SEE AEROBE REPORT Resulted 02/10/18 21:30 Blood Other Aerobic Blood Culture - Preliminary NO GROWTH IN 2 DAYS Resulted 02/10/18 21:30 Blood Other Anaerobic Blood Culture - Preliminary NO GROWTH IN 2 DAYS Resulted 02/10/18 13:53 Genital Vaginal Genital Culture - Final Klebsiella Pneumoniae Zelda Albicans Complete 02/10/18 22:00 Sputum Endotracheal Gram Stain - Final Complete 02/10/18 22:00 Sputum Culture - Final S. Aureus Mrsa Complete Imaging Last 24 hours Impressions Chest X-Ray 02/12/18 0600 Signed Impressions: Service Date/Time: Monday, February 12, 2018 03:12 - CONCLUSION: Stable chest. No pneumothorax seen. Karri Muhammad MD Procedures * Intubation/mechanical ventilation right subclavian * Central line placement * Bilateral chest tube placement * Transesophageal echo . Assessment and Plan Disease Oriented Problem List: (1) PNA (pneumonia) Comment: MRSA + Enterobacter (2) Respiratory failure (3) ARDS (adult respiratory distress syndrome) (4) Sepsis Comment: MRSA (5) Anemia (6) Hypoalbuminemia (7) Bilateral pneumothoraces Comment: Recurrent and multiple pneumothoraces . (8) ARF (acute renal failure) Comment: REsolving Symptom Scale: (1) Pain 0-10 Scale: Unable to quantify Comment: No known prehospitalization pain syndromes. Current sources of discomfort might include orotracheal and orogastric intubations; vascular access lines; restraints; Alexandre catheter; chest tubes; prolonged bedbound status. (2) Dyspnea 0-10 Scale: Unable to quantify Comment: Patient with underlying pneumonia and bilateral pneumothoraces. Dyspnea currently managed with ventilatory support. (3) Encephalopathy 0-10 Scale: Unable to quantify Pertinent Non-Medical Issues Psychosocial: Has a male partner . She normally lives with him in a manufactured home. He is a smoker. Her 2 daughters are now down from [place] to help. Spiritual: Patient is worship anglican. Assistant Plant Control Operator visits would be appreciated. Legal: There are no advance directives. Without written designation of a healthcare surrogate, proxy decision making would fall to both adult daughters. Ethical issues impacting care: Patient is currently incapacitated to make her own medical decisions. It is unclear if/when she will become capacitated to do so. . Important Contacts Alona Caballero (daughter and co-health care proxy) [phone] Zenobia Clay (daughter and co-health care proxy) [phone] Brett Mackay (boyfriend -- NO DECISION MAKING RIGHTS unless there is written documentation saying otherwise) [phone] . Prognosis On the one hand, other than her morbid obesity, this patient has very few health problems and has managed to stay out of the hospital. Ordinarily, we would expect her to respond well to treatment and improve.. This patient declined incredibly quickly and has very severe respiratory disease in spite of the fact that she has no known underlying chronic respiratory illness.She has multiple pneumothoraces. She has developed Enterobacter pneumonia on top of her MRSA pneumonia. She has had persistent elevated WBCs and bandemia. It remains unclear if she will pull through this. It is becoming more apparent that she might require tracheostomy if ongoing aggressive care is desired. Given her relatively good healthcare condition just days before the onset of this illness, she certainly deserves a decent trial of aggressive care. . . Code Status: Alternative Code (Per discussion with two daughters on 02/11/18) Plan == Code Status: ALT CODE (no shock; no chest compression) -- per discussion with both daughters on 02/11/18 == Medical Decision Making: Patient is currently incapacitated to make her own healthcare decisions. It is unclear if/when she will recover capacity to do so. Since there is no written designation of healthcare surrogacy that we are aware of, proxy decision making would fall to her 2 adult children -- Alona Caballero and Zenobia Earnest Clay. They both have accepted this role. == Goals of medical treatment: Given the patient was in good health just days before the onset of this illness, goals continue to be aggressive short of shock and chest compressions. However, daughters have seen lack of progress and don't think the patient would want to be maintained indefinitely on ventilatory support. If physicians do not think she will have a good chance of eventually being weaned, they will probably not want to go forward with tracheostomy. == Symptoms: * Pain: No known pre-hospitalization pain syndromes. Current sources of discomfort might include orotracheal and orogastric intubations; vascular access lines; restraints; Alexandre catheter; chest tubes; prolonged bedbound status. Currently on fentanyl/midazolam. No further recommendations at this time. * Dyspnea: Patient with underlying pneumonia and bilateral pneumothoraces. Dyspnea currently managed with ventilatory support. Bilateral chest tubes in place. Pending IR evaluation for recurrent hydropneumothorax. * Encephalopathy: Patient is currently sedated but underlying encephalopathy probably secondary to her sepsis. Hopefully this will improve if we are able to make headway with the underlying infection. No further recommendations at this time. == Patient was intubated on 01/31/18 -- tracheostomy decision coming within the next few days. Family made aware. Family will likely want to go through with trach if specialist believe there is still a reasonable chance that the patient will improve well enough to get off the ventilator and return to a life of independence. == Palliative care will continue to follow to assist with symptom management and to further clarify goals of medical treatment as the clinical course evolves. . Time Spent Total Floor Time (mins): 31 (Total time to include review medical records, physical exam, goals of care conversation with patient's family, case discussion with bedside RN Corrine.) >50% Counseling/Coord of Care: Yes Attestation To help prompt me to consider important information that might be impacting today's encounter and assessment, information from prior notes written by myself or my colleagues may have been "brought forward" into today's note. My signature on this note, however, is an attestation that I personally performed the exam, history, and/or decision-making noted today, and, unless otherwise indicated, the interactions with patient, family, and staff as well as the review of records all occurred today. I also attest that the listed assessment and stated plan reflect my best clinical judgment today based on the combination of historical information, prior notes, and today's exam/ interactions. When time spent is documented, it refers only to time spent today by the signer, or if indicated, combined time spent today by collaborating physician/nurse practitioner. Myra Delatorre Feb 12, 2018 12:38
--- NOTE | 2018-02-12 14:29 | HHI.IDPN ---
Subjective Subjective Remarks Pt is now with [address] showed Loculated hydropneumothorax in the left anterior chest not currently drained by chest tube. Most recent blood clx is negative Antibiotics Meropenem IV Vanco IV Zyvox IV Lines Line sites with no e.o infection Past Medical History Gastric bypass Tonsillectomy Allergies: Coded Allergies: No Known Allergies (Unverified , 01/30/18) Objective . Vital Signs Date Time Temp Pulse Resp B/P (MAP) Pulse Ox O2 Delivery O2 Flow Rate FiO2 02/12/18 11:25 99 40 02/12/18 10:00 76 02/12/18 08:19 94 40 02/12/18 08:00 97.7 77 23 122/58 (79) 95 02/12/18 08:00 77 02/12/18 08:00 40 02/12/18 06:00 80 02/12/18 04:44 96 40 02/12/18 04:00 98.5 79 19 140/67 (91) 96 02/12/18 04:00 79 02/12/18 04:00 45 02/12/18 02:00 77 02/12/18 01:18 96 40 02/12/18 00:00 77 02/12/18 00:00 45 02/12/18 00:00 98.5 77 21 113/58 (76) 96 02/11/18 22:38 96 45 02/11/18 22:00 76 02/11/18 20:00 45 02/11/18 20:00 75 02/11/18 20:00 98.6 75 19 121/55 (77) 96 02/11/18 19:51 96 45 02/11/18 18:00 74 02/11/18 16:35 94 45 02/11/18 16:00 80 02/11/18 16:00 45 02/11/18 16:00 98.5 80 20 123/60 (81) 95 . Laboratory Tests Test 02/11/18 03:55 02/12/18 04:45 White Blood Count 22.3 TH/MM3 18.7 TH/MM3 Red Blood Count 2.82 MIL/MM3 2.93 MIL/MM3 Hemoglobin 7.7 GM/DL 8.1 GM/DL Hematocrit 23.6 % 24.6 % Mean Corpuscular Volume 83.5 FL 84.1 FL Mean Corpuscular Hemoglobin 27.1 PG 27.5 PG Mean Corpuscular Hemoglobin Concent 32.5 % 32.7 % Red Cell Distribution Width 15.9 % 15.9 % Platelet Count 505 TH/MM3 632 TH/MM3 Mean Platelet Volume 8.7 FL 8.3 FL Neutrophils (%) (Auto) 90.3 % 90.0 % Lymphocytes (%) (Auto) 5.1 % 5.3 % Monocytes (%) (Auto) 3.7 % 3.4 % Eosinophils (%) (Auto) 0.6 % 0.8 % Basophils (%) (Auto) 0.3 % 0.5 % Neutrophils # (Auto) 20.1 TH/MM3 16.8 TH/MM3 Lymphocytes # (Auto) 1.1 TH/MM3 1.0 TH/MM3 Monocytes # (Auto) 0.8 TH/MM3 0.6 TH/MM3 Eosinophils # (Auto) 0.1 TH/MM3 0.1 TH/MM3 Basophils # (Auto) 0.1 TH/MM3 0.1 TH/MM3 CBC Comment AUTO DIFF DIFF FINAL Differential Comment AUTO DIFF CONFIRMED Laboratory Tests Test 02/11/18 03:55 02/12/18 04:45 Blood Urea Nitrogen 25 MG/DL 21 MG/DL Creatinine 0.72 MG/DL 0.66 MG/DL Random Glucose 117 MG/DL 152 MG/DL Total Protein 5.9 GM/DL 6.4 GM/DL Albumin 0.8 GM/DL 0.8 GM/DL Calcium Level 7.7 MG/DL 7.9 MG/DL Magnesium Level 2.3 MG/DL 2.2 MG/DL Alkaline Phosphatase 329 U/L 354 U/L Aspartate Amino Transf (AST/SGOT) 81 U/L 44 U/L Alanine Aminotransferase (ALT/SGPT) 114 U/L 78 U/L Total Bilirubin 0.6 MG/DL 0.8 MG/DL Sodium Level 144 MEQ/L 140 MEQ/L Potassium Level 4.0 MEQ/L 3.1 MEQ/L Chloride Level 106 MEQ/L 104 MEQ/L Carbon Dioxide Level 31.8 MEQ/L 31.2 MEQ/L Anion Gap 6 MEQ/L 5 MEQ/L Estimat Glomerular Filtration Rate 82 ML/MIN 91 ML/MIN Phosphorus Level 3.5 MG/DL Microbiology Date/Time Source Procedure Growth Status 02/10/18 21:35 Blood Other Aerobic Blood Culture - Preliminary NO GROWTH IN 2 DAYS Resulted 02/10/18 21:35 Blood Other Anaerobic Blood Culture - Final QNS - SEE AEROBE REPORT Resulted 02/10/18 21:30 Blood Other Aerobic Blood Culture - Preliminary NO GROWTH IN 2 DAYS Resulted 02/10/18 21:30 Blood Other Anaerobic Blood Culture - Preliminary NO GROWTH IN 2 DAYS Resulted 02/10/18 13:53 Genital Vaginal Genital Culture - Final Klebsiella Pneumoniae Zelda Albicans Complete 02/10/18 22:00 Sputum Endotracheal Gram Stain - Final Complete 02/10/18 22:00 Sputum Culture - Final S. Aureus Mrsa Complete Imaging Last Impressions Chest X-Ray 02/12/18 0600 Signed Impressions: Service Date/Time: Monday, February 12, 2018 03:12 - CONCLUSION: Stable chest. No pneumothorax seen. Karri Muhammad MD Liver Ultrasound 02/11/18 0000 Signed Impressions: Service Date/Time: Sunday, February 11, 2018 09:34 - CONCLUSION: Nondiagnostic examination CT scan is recommended for further evaluation if clinically indicated. To Vaughn MD Neck CT 02/10/18 0000 Signed Impressions: Service Date/Time: Saturday, February 10, 2018 14:57 - CONCLUSION: 1. Extensive subcutaneous edema in the neck which has dissected cephalad from the chest and is worse on the left side. 2. Support apparatus as above. See chest CT report for evaluation of lungs. 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 No adenopathy. Everett Ng MD Chest CT 02/10/18 0000 Signed Impressions: Service Date/Time: Saturday, February 10, 2018 14:52 - CONCLUSION: 1. Loculated hydropneumothorax in the left anterior chest not currently drained by chest tube. 2. Multifocal areas of dense consolidation and cavitation in both lungs but significantly worse on the right side with considerable progression since January 30 comparison. Primary differential diagnosis is infection or septic embolic disease. 3. Extensive subcutaneous air has developed bilaterally. There is a small right pneumothorax. Everett Ng MD Physical Exam CONSTITUTIONAL/GENERAL: On the vent SKIN: No jaundice, rashes, or lesions. Ecchymoses on upper extremities. Skin temperature appropriate. generalized edema Massive Sq emphysema HEAD: Atraumatic. Normocephalic. EYES: Pupils equal and round and reactive. No scleral icterus. No injection or drainage. ENT: No nasal discharge, orally intubated NECK: Supple, nontender. CARDIOVASCULAR: Regular rate and rhythm without murmurs, gallops, or rubs. RESPIRATORY/CHEST: Symmetric, unlabored respirations. Rhonchi b/l. CTx2 on R and CT x 2 on the L GASTROINTESTINAL: Abdomen soft, nondistended. Obese. Mild grimacing during palpation, not guarding. GENITOURINARY: Without palpable bladder distension. Alexandre catheter in place. MUSCULOSKELETAL: Extremities without clubbing, cyanosis, + 3 diffuse edema. . NEUROLOGICAL: more awake today PSYCHIATRIC: unable to assess LINE: no evidence of infection Assessment & Plan Remarks IMPRESSION MRSA PNA Multiple b/l pneumothoraces ? postinfluenza PNA Loculated hydropneumothorax: ? empyema Acute VDRF High grade , sustained MRSA bacteremia GRANT negative Severe leukocytosis and bandemia New PNA, Enterobacter (panS) along with MRSA Empyema and multiple cavitary lesions - essentaially necrotizing PNA - no e/o endocarditis - CTS not planning to do any sx PLAN change Meropenem IV to CFTX Continue Zyvox. Monitor platelets and HCO3. dc Vancomycin if repeat clx negative GRANT is negative. Carlene Singleton MD Feb 12, 2018 14:29
--- NOTE | 2018-02-12 15:10 | RADRPT ---
EXAM DATE/TIME: 02/12/2018 14:07 [facility] COMPARISON: CT THORAX W/O CONTRAST, February 10, 2018, 14:52. INDICATIONS : Left chest tube placement RADIATION DOSE: 30.74 CTDIvol (mGy) ; Patient body habitus MEDICAL HISTORY : Non-responsive. SURGICAL HISTORY : Non-responsive. ENCOUNTER: Initial ACUITY: 1 day PAIN SCALE: Non-responsive LOCATION: Left chest TECHNIQUE: Volumetric scanning of the chest was performed. Using automated exposure control and adjustment of t he mA and/or kV according to patient size, radiation dose was kept as low as reasonably achievable to obtain optimal diagnostic quality images. DICOM format image data is available electronically for r eview and comparison. Follow-up recommendations for detected pulmonary nodules are based at a minimum on nodule size and pa tient risk factors according to Fleischner Society Guidelines. FINDINGS: LUNGS: There is respiratory motion artifact. Severe bilateral airspace consolidation is present similar to t he prior studies. There is a stable cavitary lesion in the right upper lobe measuring 5.1 cm. Additio nal smaller cavitary areas are present bilaterally. The loculated anterior left pneumothorax has reso lved. PLEURAE: There are is trace right pleural fluid and there is a small left pleural effusion are likely similar in size to the prior study. There are 2 right chest tubes present with the large bore chest tube bein g severely 18th and extending into the fissure. The pigtail catheter anteriorly on the right is in th e anterior pleural space. The 2 left chest tubes are located within the pleural fluid. MEDIASTINUM: The heart and great vessels demonstrate no acute abnormality. There is no mediastinal or hilar lymph adenopathy. Nasogastric tube is present within the esophagus and there is an endotracheal tube presen t. Right subclavian central line distal tip is in the SVC. AXILLAE: No lymphadenopathy is identified. There is mild subcutaneous air. MUSCULOSKELETAL: The bones demonstrate no acute finding. The bilateral chest wall subcutaneous emphysema has significa ntly improved. MISCELLANEOUS: The visualized upper abdominal organs demonstrate no acute abnormality. CONCLUSION: 1. The loculated anterior left pneumothorax has resolved. A small left pleural effusion remains prese nt and the 2 left chest tubes appear to be in good position to drain the fluid. 2. Significant improvement in the bilateral chest wall subcutaneous emphysema. 3. Stable severe kinking of the large bore right chest tube. This chest tube also extends into the fi ssure. Given these 2 findings, this likely not providing any significant suction. Consider removal. 4. Stable severe bilateral airspace consolidation with multifocal areas of cavitation. Michael Perea MD on February 12, 2018 at 15:02 Board Certified Radiologist. This report was verified electronically.
[2018-02-12] MEDS: cefTRIAXone INJ 2,000 MG in SODIUM CHLORIDE 0.9% INJ 100 ML IV SCH (15:55)
[2018-02-12] MEDS ORDERED: PHARMACY ORDERED LAB ONE (16:45)
[2018-02-12] MEDS: VANCOMYCIN INJ 1,500 MG in SODIUM CHLORID 0.9% 500 ML INJ 500 ML IV SCH (18:03)
--- NOTE | 2018-02-12 20:21 | HHI.PR ---
Subjective Remarks 62 YO Female with VDRF,PTx, 4 Chest tubes 2 chest tubes have airleak Sedated with Versed, Diprivan and Fentanyl On Vent CT chest loculated fluid collection not being drained by exising chest tubes Fi02 weaned to 40% Sig decreased SQ Emphysema Objective Vital Signs Vital Signs Date Time Temp Pulse Resp B/P (MAP) Pulse Ox O2 Delivery O2 Flow Rate FiO2 02/12/18 18:00 80 02/12/18 16:00 40 02/12/18 16:00 74 02/12/18 16:00 97.8 73 20 120/61 (80) 94 02/12/18 15:25 97 40 02/12/18 13:30 100 100 02/12/18 12:00 98.7 75 19 127/60 (82) 97 02/12/18 12:00 40 02/12/18 12:00 75 02/12/18 11:25 99 40 02/12/18 10:00 76 02/12/18 08:19 94 40 02/12/18 08:00 98.7 77 23 122/58 (79) 95 02/12/18 08:00 77 02/12/18 08:00 40 02/12/18 06:00 80 02/12/18 04:44 96 40 02/12/18 04:00 98.5 79 19 140/67 (91) 96 02/12/18 04:00 79 02/12/18 04:00 45 02/12/18 02:00 77 02/12/18 01:18 96 40 02/12/18 00:00 77 02/12/18 00:00 45 02/12/18 00:00 98.5 77 21 113/58 (76) 96 02/11/18 22:38 96 45 02/11/18 22:00 76 I/O 02/11/18 02/11/18 02/11/18 02/12/18 02/12/18 02/12/18 07:00 15:00 23:00 07:00 15:00 23:00 Intake Total 1000 ml 190 ml 1572 ml 600 ml 640 ml Output Total 1220 ml 2064 ml 1270 ml 1290 ml Balance -220 ml -1874 ml 302 ml 600 ml -650 ml IV Total 750 ml 100 ml 1165 ml 600 ml 550 ml Tube Feeding 250 ml 0 ml 347 ml 0 ml Tube Irrigant 90 ml 90 ml Other 60 ml Output Urine Total 1150 ml 2050 ml 1250 ml 1250 ml Chest Tube Drainage Total 70 ml 14 ml 20 ml 40 ml # Bowel Movements 1 0 0 Result Diagram: 02/12/1844402/12/18444 Objective Remarks GENERAL: WBWN Female, on Vent, sedated SKIN: Warm and dry. HEAD: Normocephalic. EYES: No scleral icterus. No injection or drainage. NECK: Supple, trachea midline. No JVD or lymphadenopathy. CARDIOVASCULAR: Regular rate and rhythm without murmurs, gallops, or rubs. RESPIRATORY: Breath sounds equal bilaterally. No accessory muscle use. [address] SQ Emphysema. GASTROINTESTINAL: Abdomen soft, non-tender, nondistended. MUSCULOSKELETAL: No cyanosis, or edema. BACK: Nontender without obvious deformity. No CVA tenderness. A/P Assessment and Plan VDRF Post Influenza Pn MRSA PTX PLAN: Cont Vent support Cont Abx TF Sedation with Diprivan, Versed and Fentanyl. DW Daughter at [facility] MD Feb 12, 2018 20:21
[2018-02-12] MEDS: RESP: ALBUTEROL 2.5 MG/IPRATROPIUM 0.5 MG NEB (PRN) INH (21:51)
[2018-02-13] VITALS (19 sets, daily range): BP systolic 101–154; BP diastolic 54–71; PULSE 80–99; RESP 15–33; TEMP 97.8–98.4; O2SAT 95–100
[2018-02-13] MEDS: DILTIAZEM HCL 30 MG TAB PO SCH ×3 (04:22→16:42)
[2018-02-13] MEDS: HEPARIN SODIUM - SQ 10,000 UNITS/ML VIAL SQ SCH ×3 (04:22→19:43)
[2018-02-13] MEDS: INSULIN ASPART SUPPLEMENTAL SCALE SQ SCH ×4 (04:22→23:03)
[2018-02-13] MEDS: MIDAZOLAM 100 MG/NS 100 ML DRIP Premix IV PRN ×2 (04:22→23:59)
[2018-02-13] MEDS: fentaNYL 2,500 MCG/NS 250 ML IV PRN ×2 (04:22→19:38)
[2018-02-13 06:51] LABS: BASOPHIL # 0.1 TH/MM3 (0-0.2); BASOPHIL % 0.4 % (0.0-2.0); EOSINOPHIL # 0.2 TH/MM3 (0-0.4); EOSINOPHIL % 1.1 % (0.0-4.0); HEMATOCRIT 24.8 % (35.0-46.0); HEMOGLOBIN 8.2 GM/DL (11.6-15.3); LYMPH % 6.3 % (9.0-44.0); MEAN CELL VOLUME 83.9 FL (80.0-100.0); MEAN CORPUSCULAR HEMOGLOBIN 27.7 PG (27.0-34.0); MEAN PLATELET VOLUME 8.1 FL (7.0-11.0); MONO % 3.8 % (0.0-8.0); MONOCYTE # 0.6 TH/MM3 (0-0.9); NEUT % 88.4 % (16.0-70.0); PLATELET COUNT 711 TH/MM3 (150-450); RED BLOOD COUNT 2.95 MIL/MM3 (4.00-5.30); RED CELL DISTRIBUTION WIDTH 15.8 % (11.6-17.2); WHITE BLOOD COUNT 15.8 TH/MM3 (4.0-11.0)
[2018-02-13 07:03] LABS: ALBUMIN 0.9 GM/DL (3.4-5.0); AST (GOT) 39 U/L (15-37); BICARBONATE 30.8 MEQ/L (21.0-32.0); BLOOD UREA NITROGEN 17 MG/DL (7-18); CALCIUM 8.1 MG/DL (8.5-10.1); CHLORIDE 103 MEQ/L (98-107); CREATININE 0.62 MG/DL (0.50-1.00); GLOMERULAR FILTRATION RATE 98 ML/MIN (>89); GLUCOSE,RANDOM 171 MG/DL (74-106); SODIUM (NA) 141 MEQ/L (136-145)
[2018-02-13 07:07] LABS: ALKALINE PHOSPHATASE 357 U/L (45-117); ALT (GPT) 57 U/L (10-53); TOTAL BILIRUBIN ADULT 0.5 MG/DL (0.2-1.0); TOTAL PROTEIN 6.6 GM/DL (6.4-8.2)
[2018-02-13] MEDS: CHLORHEXIDINE 0.12% (ORAL KIT) 15 ML CUP MT SCH ×2 (08:00→19:37)
[2018-02-13] MEDS: ASPIRIN 81 MG CHEW TAB CHEW SCH (08:40)
[2018-02-13] MEDS: FAMOTIDINE 20 MG TAB PO SCH ×2 (08:40→19:38)
[2018-02-13] MEDS: FUROSEMIDE 40 MG/4 ML VIAL IV PUSH SCH (08:41)
[2018-02-13] MEDS: DOCUSATE SODIUM 50 MG/SENNA 8.6 MG TAB PO SCH ×2 (08:41→19:38)
[2018-02-13] MEDS: SODIUM CHLORIDE 0.9% FLUSH 10 ML FLUSH IV FLUSH SCH ×2 (08:41→19:39)
--- NOTE | 2018-02-13 10:38 | HHI.CCPN ---
Subjective Remarks/Hospital Course 01/30: 62-year-old female presents for evaluation of increasing shortness of breath and chest pain. She reports 1 week of coughing 3 days of pain in her left chest which radiates to her back, which prompted the visit to the emergency room yesterday. She rates her pain a 6 out of 10. She reports fevers , chills, fatigue, mild nausea. She denies any abdominal pain, vomiting. Patient denies any significant past medical history. Symptom onset was gradual , symptom severity is severe, there are no alleviating factors. Patient states that she has been taking the azithromycin antibiotics that were prescribed to her. She denies any current or historical tobacco use. 01/31: Intubated at 1 AM this morning and placed on mechanical ventilation due to worsening respiratory distress. Currently sedated, orally intubated on mechanical ventilation. 02/01: Remains sedated, orally intubated on mechanical ventilation. Went into A. fib with RVR this morning. Loaded with amiodarone, started on amiodarone drip and given digoxin 0.5 mg IV 02/02: Remains sedated, orally intubated on mechanical ventilation. Right sided pigtail catheter in place with 1+ air leak. Converted to sinus rhythm overnight. Remains on amiodarone gtt. 02/03: Remains sedated, orally intubated on mechanical ventilation. 1+ air leak and right sided pigtail catheter. Tolerating tube feeds. Remains on amiodarone gtt. 02/04: Noted to have pneumothorax on the left side this morning on routine chest x -ray which appeared to be under tension. Right sided pigtail catheter placed by Dr. Peña with reexpansion of lung. Patient remains sedated, orally intubated on mechanical ventilation. 1+ airleak and bilateral chest tubes noted. 02/05: Afebrile. Persistent leukocytosis, bilateral chest tubes continue on wall suction. Chest x-ray pending this a.m.. Patient scheduled for GRANT today, discussed with Dr. Vázquez. Patient continues on amiodarone infusion with sinus rhythm. Postprocedure GRANT,this afternoon, the patient became extremely agitated, noted significant increase in subcu emphysema, peak pressures 50's, O2 saturation significantly decreased to 78-80 %. Stat chest x-ray performed patient was noted to have a significant right pneumothorax. 20 Sur[place]amese right chest tube placement emergently, with increase in O2 saturation decrease in peak inspiratory pressures. 02/06: Afebrile. Patient with persistent bilateral pneumothoraces, with diffuse bilateral infiltrates and massive SQ emphysema. O2 requirement significantly increased during the night, PIP 38-44. 28 F chest tubes were placed bilaterally with resolution of left pneumothorax and minimization of right pneumothorax, and improved oxygenation. 02/07: TMax 100.1 Chest tubes remain on suction. Resolution of pneumothoraces, continued extensive SQ emphysema. Persistent leukocytosis noted. FiO2 weaned to 50%. 02/08: Late entry note patient seen at 1250. Attempts at CPAP trials, unsuccessful this morning. FiO2 decreased 50%, with adequate oxygenation. 02/09: Afebrile. The patient was transitioned to CPAP trials with pressure support of 22/8. FiO2 currently at 55% continuing to wean. Patient noted with positive fluid balance Lasix 40 mg IV now, patient is initiated on Lasix 40 daily. Patient with positive air leak in chest tubes #1-28 Sur[place]amese right and #3 pigtail left, both at 2+. Sedation vacation initiated early this a.m. patient neurologically intact. Patient continues on moderate sedation for CPAP to maintain ventilator synchrony plan for transitioning to Precedex. Noted improvement with subcu emphysema. Extensive discussion with patient's daughter regarding a possibility of a tracheostomy if unsuccessful with ventilator weaning process. 02/10: Subcutaneous emphysema has worsened overnight per RN who took care of the patient yesterday, now extending to the upper chest left neck and to the left side of the face including left eyelids. No increase in FiO2 requirement currently on 55%. I have reduced inspiratory pressure from 32 to 28. FiO2 reduced to 50%. Will check a repeat chest x-ray in afternoon if needed. Will request CT surgical evaluation for persistent subcutaneous emphysema despite 2 chest tubes bilaterally 02/11 Patient is sedated with Diprivan, Versed and Fentanyl drips. T: 101.[address] guided chest tube placement by IR today 02/12 No events overnight. Remains sedated and intubated. Afebrile. On PC/AC with PEEP: 8 and FIO2 40%. 02/13 Patient remains intubated and heavily sedated. Afebrile. Repeat CT chest yesterday showed loculated anterior left pneumothorax has resolved. A small left pleural effusion remains present and the 2 left chest tubes appear to be in good position to drain the fluid. Significant improvement in the bilateral chest wall subcutaneous emphysema. Objective Vital Signs Date Time Temp Pulse Resp B/P (MAP) Pulse Ox O2 Delivery O2 Flow Rate FiO2 02/13/18 09:10 96 45 02/13/18 06:00 91 02/13/18 04:00 98.0 20 128/60 (82) Intake and Output 02/13/18 02/13/18 02/14/18 08:00 16:00 00:00 Intake Total 1330 ml Output Total 1210 ml Balance 120 ml Result Diagram: 02/13/18 0610 02/13/18609 Other Results Laboratory Tests Test 02/12/18 16:45 02/12/18 20:29 02/13/18 06:10 Vancomycin Level Trough 18.5 MCG/ML Potassium Level 3.7 MEQ/L 4.0 MEQ/L White Blood Count 15.8 TH/MM3 Red Blood Count 2.95 MIL/MM3 Hemoglobin 8.2 GM/DL Hematocrit 24.8 % Mean Corpuscular Volume 83.9 FL Mean Corpuscular Hemoglobin 27.7 PG Mean Corpuscular Hemoglobin Concent 33.0 % Red Cell Distribution Width 15.8 % Platelet Count 711 TH/MM3 Mean Platelet Volume 8.1 FL Neutrophils (%) (Auto) 88.4 % Lymphocytes (%) (Auto) 6.3 % Monocytes (%) (Auto) 3.8 % Eosinophils (%) (Auto) 1.1 % Basophils (%) (Auto) 0.4 % Neutrophils # (Auto) 14.0 TH/MM3 Lymphocytes # (Auto) 1.0 TH/MM3 Monocytes # (Auto) 0.6 TH/MM3 Eosinophils # (Auto) 0.2 TH/MM3 Basophils # (Auto) 0.1 TH/MM3 CBC Comment DIFF FINAL Differential Comment Blood Urea Nitrogen 17 MG/DL Creatinine 0.62 MG/DL Random Glucose 171 MG/DL Total Protein 6.6 GM/DL Albumin 0.9 GM/DL Calcium Level 8.1 MG/DL Alkaline Phosphatase 357 U/L Aspartate Amino Transf (AST/SGOT) 39 U/L Alanine Aminotransferase (ALT/SGPT) 57 U/L Total Bilirubin 0.5 MG/DL Sodium Level 141 MEQ/L Chloride Level 103 MEQ/L Carbon Dioxide Level 30.8 MEQ/L Anion Gap 7 MEQ/L Estimat Glomerular Filtration Rate 98 ML/MIN Imaging Last Impressions Chest CT 02/12/18 1334 Signed Impressions: Service Date/Time: Monday, February 12, 2018 14:07 - CONCLUSION: 1. The loculated anterior left pneumothorax has resolved. A small left pleural effusion remains present and the 2 left chest tubes appear to be in good position to drain the fluid. 2. Significant improvement in the bilateral chest wall subcutaneous emphysema. 3. Stable severe kinking of the large bore right chest tube. This chest tube also extends into the fissure. Given these 2 findings, this likely not providing any significant suction. Consider removal. 4. Stable severe bilateral airspace consolidation with multifocal areas of cavitation. Michael Perea MD Chest X-Ray 02/12/18 0600 Signed Impressions: Service Date/Time: Monday, February 12, 2018 03:12 - CONCLUSION: Stable chest. No pneumothorax seen. Karri Muhammad MD Liver Ultrasound 02/11/18 0000 Signed Impressions: Service Date/Time: Sunday, February 11, 2018 09:34 - CONCLUSION: Nondiagnostic examination CT scan is recommended for further evaluation if clinically indicated. To Vaughn MD Neck CT 02/10/18 0000 Signed Impressions: Service Date/Time: Saturday, February 10, 2018 14:57 - CONCLUSION: 1. Extensive subcutaneous edema in the neck which has dissected cephalad from the chest and is worse on the left side. 2. Support apparatus as above. See chest CT report for evaluation of lungs. 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 No adenopathy. Everett Ng MD Procedures 02/05- Right emergent 20 F chest tube placement 02/06: Left 28 Surinamese chest tube placement, right chest tube replacement 28 [place]amese Objective Remarks HEENT/ Neuro: Sedated, orally intubated, Pallor present, no icterus, tongue/ mucosa moist significant SQ emphysema. Left side of the face eyelid has significant subcu emphysema Neck: No JVD. Left side of the neck with significant subcutaneous emphysema Chest/Pulm: on mech vent, air entry decreased bilaterally at bases, scattered rhonchi bilaterally. Bilateral pigtail catheters insitu., and 28F chest tubes bilaterally to -40cm H20. CVS: S1-S2 regular, no murmur GI/abdomen: soft, nontender, bowel sounds hypoactive Neuro: RASS -2, currently on fentanyl, propofol and Versed infusions. Patient moving extremities 4 Extremities: warm bilaterally, 1+bilateral peripheral edema upper and lower extremities A/P Assessment and Plan Neuro: Neuro checks per ICU protocol Versed, propofol and fentanyl to maintain ventilator synchrony. Daily sedation vacation Pulm: Acute hypoxemic respiratory failure MRSA pneumonia MRSA bacteremia COPD Persistent bilateral pneumothorax, significant subcutaneous emphysema Post Influenza pneumonia? Continue vent support keep sats >92%, will need trach once more stable - DuoNeb scheduled and when necessary -Start SBT daily as bernarda. Bilateral pigtail catheters and [address] in place(4 total) Repeat CT chest 02/12 The loculated anterior left pneumothorax has resolved. the 2 left chest tubes appear to be in good position to drain the fluid. Significant improvement in the bilateral chest wall subQ mphysema. Stable severe bilateral airspace consolidation with multifocal areas of cavitation. -Thoracic surgery is following- Dr. Thornton Check CXR today Renal: Acute kidney injury-resolved Dehydration-resolved - Maintain Alexandre -Monitor renal function, I/O's, electrolytes replacement per protocol. D/c Lasix and place on Bumex 0.5mg/hr Cardiovascular: A. fib with RVR (converted to NSR 02/02) -02/05 amiodarone infusion discontinued. - 02/05 GRANT -no valvular vegetations. EF 55-60%, trace MVR, mild TVR, PAP 35 Monitor HR and BP keep MAP>65mmHfg On Cardizem 30mg Q6 GI Elevated LFT;s Hepatitis profile: Negative US liver: non-diagnostic study -Tube feeds Jevity 1.5 60 cc/hr at goal,- -Bowel regimen-last BM 02/08 -Zofran for nausea ID: MRSA, Enterobacter pneumonia MRSA Bacteremia - Antibiotics per ID. On Zyvox, Vanco, Rocephin. Monitor for signs of infections ( Fever, WBC) -Repeat blood cultures per ID. Bal culture/blood cultures growing MRSA. Legionella and strep pneumo antigen negative -ID- Dr. Singleton following. 02/10 Sputum: MRSA 02/10 BC: NGTD Endocrine: Hyperglycemia Medium scale sliding scale insulin dosing Glucose monitoring per ICU protocol DVT GI prophylaxis - Teds SCDs - Subcutaneous heparin - Pepcid Lines: Right subclavian central line inserted 3/30. Peripheral IVs 2 Palliative care is following Level 3 Lenard Qureshi MD Feb 13, 2018 10:38
[2018-02-13] MEDS ORDERED: PHARMACY ORDERED LAB ONE (10:45)
[2018-02-13] MEDS: LINEZOLID 600 MG PREMIX 300 ML IV SCH ×3 (11:47→23:59)
--- NOTE | 2018-02-13 12:26 | RADRPT ---
EXAM DATE/TIME: 02/13/2018 11:06 [facility] COMPARISON: CT THORAX W/O CONTRAST, February 12, 2018, 14:07. CHEST SINGLE AP, February 12, 2018, 3:12. INDICATIONS : Ventilator dependant respiratory failure. MEDICAL HISTORY : None. SURGICAL HISTORY : Gastric bypass. Tonsillectomy. ENCOUNTER: Subsequent ACUITY: 4 - 6 days PAIN SCORE: Non-responsive. LOCATION: Bilateral chest FINDINGS: The patient is intubated with the tip of the ET tube 1.5 cm from the thiago. The NG tube tip is direc tereza into the stomach. Bilateral chest tubes are present. This includes bilateral large bore chest tub es and a pigtail catheter on the right. There is a right subclavian line in place with the tip overly ing the SVC. The heart size is normal. There is diffuse pulmonary consolidation being most prominent at the mid and lower lungs. There is silhouetting of the left hemidiaphragm. Some degree of left effu polo these be suspected. Subcutaneous emphysema seen in the right side. CONCLUSION: 1. Tubes and lines as described above. 2. Diffuse consolidation likely related to edema, diffuse infection or ARDS. This unchanged from the prior exam. 3. Bilateral chest tubes. A pneumothorax is not seen. There does appear to be a left effusion. Michael Gabriel MD on February 13, 2018 at 12:21 Board Certified Radiologist. This report was verified electronically.
--- NOTE | 2018-02-13 14:51 | HHI.HCPN ---
Reason for visit a. To assist with evaluation and management of symptoms including: dyspnea; encephalopathy, pain b. To assist medical decision maker(s) with: better understanding of current medical conditions; weighing benefits/burdens of medical treatment options; making medical treatment decisions. . Subjective/Interval History Palliative care follow-up for further clarifications of goals of care, emotional support. Patient seen and medical ICU. She remains endotracheally intubated on mechanical ventilation. Currently sedated on propofol, fentanyl and Versed. Plan to decrease sedation today and attempt CPAP trials. Patient briefly opened eyes to tactile stimuli but not following commands. Follow-up chest CT revealing resolution of loculated anterior left pneumo, improved sq emphysema. Patient currently on 45% FiO2, increased oxygen requirement overnight up to 55%. Repeat sputum culture 02/10 revealing S. Aureus MRSA. Infectious disease following. Case discussed at length with Dr Esteban. Met with patient's daughter Alona Fregoso participated in conversation via telephone. Medical update provided. Reviewed patient's past medical history, events leading to this hospitalization , clinical course and current medical management. Reviewed current attempts at medical extubation as tolerated by patient. Shared concerns of patient's ability to medical extubate given VDRF, SQ emphysema, necrotizing pna. Reviewed that patient remains at high risk of additional complications, continue decline and . reviewed that if patient is medically extubated, she remains at high risk for recurrent respiratory failure. Reviewed tach and peg if unable to med extubate. Both daughters expressed that patient's quality of life is their priority. They shared that patient has always been a very independent woman and would not elect long-term vent support or to depend on other for care. Goal of therapy at this time is to allow a few more days for clinical improvement, continue aggressive management short of no cardiac resuscitation. Peg/tach decision by the end of this week if patient unable to med extubate. Daughters receptive to pall care follow-ups. Case discussed with Dr. Esteban and bedside RN Osvaldo. . Family/friend interactions See interval note. . Advance Directives Living Will: Never completed Health Care Surrogate: Never completed Durable Power of Drama Teacher: Never completed Advance Directive Specifics Date completed: Patient has never completed an advanced directive. . Health Care Surrogate(s): There is no written designation of healthcare surrogate. . Documented care wishes: There is no written documentation of healthcare goals/preferences. . Significant change in goals: aggressive management short of no chest compression or defibrillator. . Objective Vital Signs Date Time Temp Pulse Resp B/P (MAP) Pulse Ox O2 Delivery O2 Flow Rate FiO2 02/13/18 12:00 98.2 94 24 122/58 (79) 99 02/13/18 12:00 40 02/13/18 12:00 94 02/13/18 11:19 97 45 02/13/18 10:00 97 02/13/18 09:10 96 45 02/13/18 08:00 40 02/13/18 08:00 93 02/13/18 08:00 97.8 93 21 125/57 (79) 97 02/13/18 06:00 91 02/13/18 04:42 96 55 02/13/18 04:00 40 02/13/18 04:00 98.0 88 20 128/60 (82) 97 02/13/18 04:00 88 02/13/18 02:00 91 02/13/18 00:42 97 55 02/13/18 00:00 40 02/13/18 00:00 98.0 80 15 101/54 (70) 97 02/13/18 00:00 80 02/12/18 22:00 79 02/12/18 21:58 94 55 02/12/18 20:46 95 40 02/12/18 20:00 78 02/12/18 20:00 97.9 78 12 118/56 (76) 95 02/12/18 20:00 40 02/12/18 18:00 80 02/12/18 16:00 40 02/12/18 16:00 74 02/12/18 16:00 97.8 73 20 120/61 (80) 94 02/12/18 15:25 97 40 Intake & Output 02/13/18 02/13/18 06:59 18:59 Intake Total 1580 ml Output Total 1210 ml Balance 370 ml IV Total 900 ml Tube Feeding 620 ml Other 60 ml Output Urine Total 1200 ml Chest Tube Drainage Total 10 ml # Bowel Movements 0 Physical Exam CONSTITUTIONAL/GENERAL: This is an obese patient, sedated, in the medical intensive care unit bed. No apparent distress. TUBES/LINES/DRAINS: Orotracheal tube; orogastric tube; right subclavian central line; bilateral chest tubes x2; peripheral IV; soft wrist restraints; sequential compressive devices. SKIN: No jaundice, rashes. Ecchymoses on upper extremities. No wounds seen anteriorly. Skin temperature appropriate. Not diaphoretic. EYES: Pupils equal and round. Unable to evaluate extraocular movements. Lids quite swollen from SQ emphysema left worse than right. No scleral icterus. No injection or drainage. ENT: Unable to evaluate hearing. Nose without bleeding or purulent drainage. Moist oral mucosa. NECK: Neck somewhat difficult to examine due to obesity and SQ emphysema. Trachea midline. CARDIOVASCULAR: Regular rate/rhythm without murmurs, gallops, or rubs. RESPIRATORY/CHEST: Bilateral chest tubes. Symmetric respirations on vent. Decreased air movement at bases. Scattered rhonchi bilaterally. GASTROINTESTINAL: Abdomen obese, large, soft. Hypoactive bowel sounds. GENITOURINARY: Without palpable bladder distension. Alexandre catheter in place. MUSCULOSKELETAL: Extremities without clubbing, cyanosis. Widespread edema vs SQ emphysema. No mottling. NEUROLOGICAL: Sedated. No spontaneous movements seen. PSYCHIATRIC: Unable to assess due to level of responsiveness. . Diagnostic Tests Laboratory Laboratory Tests Test 02/11/18 03:55 02/11/18 13:45 02/12/18 04:45 02/12/18 16:45 White Blood Count 22.3 TH/MM3 (4.0-11.0) 18.7 TH/MM3 (4.0-11.0) Red Blood Count 2.82 MIL/MM3 (4.00-5.30) 2.93 MIL/MM3 (4.00-5.30) Hemoglobin 7.7 GM/DL (11.6-15.3) 8.1 GM/DL (11.6-15.3) Hematocrit 23.6 % (35.0-46.0) 24.6 % (35.0-46.0) Mean Corpuscular Volume 83.5 FL (80.0-100.0) 84.1 FL (80.0-100.0) Mean Corpuscular Hemoglobin 27.1 PG (27.0-34.0) 27.5 PG (27.0-34.0) Mean Corpuscular Hemoglobin Concent 32.5 % (32.0-36.0) 32.7 % (32.0-36.0) Red Cell Distribution Width 15.9 % (11.6-17.2) 15.9 % (11.6-17.2) Platelet Count 505 TH/MM3 (150-450) 632 TH/MM3 (150-450) Mean Platelet Volume 8.7 FL (7.0-11.0) 8.3 FL (7.0-11.0) Neutrophils (%) (Auto) 90.3 % (16.0-70.0) 90.0 % (16.0-70.0) Lymphocytes (%) (Auto) 5.1 % (9.0-44.0) 5.3 % (9.0-44.0) Monocytes (%) (Auto) 3.7 % (0.0-8.0) 3.4 % (0.0-8.0) Eosinophils (%) (Auto) 0.6 % (0.0-4.0) 0.8 % (0.0-4.0) Basophils (%) (Auto) 0.3 % (0.0-2.0) 0.5 % (0.0-2.0) Neutrophils # (Auto) 20.1 TH/MM3 (1.8-7.7) 16.8 TH/MM3 (1.8-7.7) Lymphocytes # (Auto) 1.1 TH/MM3 (1.0-4.8) 1.0 TH/MM3 (1.0-4.8) Monocytes # (Auto) 0.8 TH/MM3 (0-0.9) 0.6 TH/MM3 (0-0.9) Eosinophils # (Auto) 0.1 TH/MM3 (0-0.4) 0.1 TH/MM3 (0-0.4) Basophils # (Auto) 0.1 TH/MM3 (0-0.2) 0.1 TH/MM3 (0-0.2) CBC Comment AUTO DIFF DIFF FINAL Differential Comment AUTO DIFF CONFIRMED Blood Urea Nitrogen 25 MG/DL (7-18) 21 MG/DL (7-18) Creatinine 0.72 MG/DL (0.50-1.00) 0.66 MG/DL (0.50-1.00) Random Glucose 117 MG/DL (74-106) 152 MG/DL (74-106) Total Protein 5.9 GM/DL (6.4-8.2) 6.4 GM/DL (6.4-8.2) Albumin 0.8 GM/DL (3.4-5.0) 0.8 GM/DL (3.4-5.0) Calcium Level 7.7 MG/DL (8.5-10.1) 7.9 MG/DL (8.5-10.1) Magnesium Level 2.3 MG/DL (1.5-2.5) 2.2 MG/DL (1.5-2.5) Alkaline Phosphatase 329 U/L (45-117) 354 U/L (45-117) Aspartate Amino Transf (AST/SGOT) 81 U/L (15-37) 44 U/L (15-37) Alanine Aminotransferase (ALT/SGPT) 114 U/L (10-53) 78 U/L (10-53) Total Bilirubin 0.6 MG/DL (0.2-1.0) 0.8 MG/DL (0.2-1.0) Sodium Level 144 MEQ/L (136-145) 140 MEQ/L (136-145) Potassium Level 4.0 MEQ/L (3.5-5.1) 3.1 MEQ/L (3.5-5.1) Chloride Level 106 MEQ/L (98-107) 104 MEQ/L (98-107) Carbon Dioxide Level 31.8 MEQ/L (21.0-32.0) 31.2 MEQ/L (21.0-32.0) Anion Gap 6 MEQ/L (5-15) 5 MEQ/L (5-15) Estimat Glomerular Filtration Rate 82 ML/MIN (>89) 91 ML/MIN (>89) Hepatitis A IgM Antibody NONREACTIVE (NONREACTIVE) Hepatitis B Surface Antigen NONREACTIVE (NONREACTIVE) Hepatitis B Core IgM Antibody NONREACTIVE (NONREACTIVE) Hepatitis C IgG Antibody NONREACTIVE (NONREACTIVE) Phosphorus Level 3.5 MG/DL (2.5-4.9) Vancomycin Level Trough 18.5 MCG/ML (5.0-10.0) Test 02/12/18 20:29 02/13/18 06:10 Potassium Level 3.7 MEQ/L (3.5-5.1) 4.0 MEQ/L (3.5-5.1) White Blood Count 15.8 TH/MM3 (4.0-11.0) Red Blood Count 2.95 MIL/MM3 (4.00-5.30) Hemoglobin 8.2 GM/DL (11.6-15.3) Hematocrit 24.8 % (35.0-46.0) Mean Corpuscular Volume 83.9 FL (80.0-100.0) Mean Corpuscular Hemoglobin 27.7 PG (27.0-34.0) Mean Corpuscular Hemoglobin Concent 33.0 % (32.0-36.0) Red Cell Distribution Width 15.8 % (11.6-17.2) Platelet Count 711 TH/MM3 (150-450) Mean Platelet Volume 8.1 FL (7.0-11.0) Neutrophils (%) (Auto) 88.4 % (16.0-70.0) Lymphocytes (%) (Auto) 6.3 % (9.0-44.0) Monocytes (%) (Auto) 3.8 % (0.0-8.0) Eosinophils (%) (Auto) 1.1 % (0.0-4.0) Basophils (%) (Auto) 0.4 % (0.0-2.0) Neutrophils # (Auto) 14.0 TH/MM3 (1.8-7.7) Lymphocytes # (Auto) 1.0 TH/MM3 (1.0-4.8) Monocytes # (Auto) 0.6 TH/MM3 (0-0.9) Eosinophils # (Auto) 0.2 TH/MM3 (0-0.4) Basophils # (Auto) 0.1 TH/MM3 (0-0.2) CBC Comment DIFF FINAL Differential Comment Blood Urea Nitrogen 17 MG/DL (7-18) Creatinine 0.62 MG/DL (0.50-1.00) Random Glucose 171 MG/DL (74-106) Total Protein 6.6 GM/DL (6.4-8.2) Albumin 0.9 GM/DL (3.4-5.0) Calcium Level 8.1 MG/DL (8.5-10.1) Alkaline Phosphatase 357 U/L (45-117) Aspartate Amino Transf (AST/SGOT) 39 U/L (15-37) Alanine Aminotransferase (ALT/SGPT) 57 U/L (10-53) Total Bilirubin 0.5 MG/DL (0.2-1.0) Sodium Level 141 MEQ/L (136-145) Chloride Level 103 MEQ/L (98-107) Carbon Dioxide Level 30.8 MEQ/L (21.0-32.0) Anion Gap 7 MEQ/L (5-15) Estimat Glomerular Filtration Rate 98 ML/MIN (>89) Result Diagram: 02/13/18 0610 02/13/18 0610 Microbiology Microbiology Date/Time Source Procedure Growth Status 02/10/18 21:35 Blood Other Aerobic Blood Culture - Preliminary NO GROWTH IN 3 DAYS Resulted 02/10/18 21:35 Blood Other Anaerobic Blood Culture - Final QNS - SEE AEROBE REPORT Resulted 02/10/18 21:30 Blood Other Aerobic Blood Culture - Preliminary NO GROWTH IN 3 DAYS Resulted 02/10/18 21:30 Blood Other Anaerobic Blood Culture - Preliminary NO GROWTH IN 3 DAYS Resulted 02/10/18 22:00 Sputum Endotracheal Gram Stain - Final Complete 02/10/18 22:00 Sputum Culture - Final S. Aureus Mrsa Complete Imaging Last 24 hours Impressions Chest X-Ray 02/13/18 0000 Signed Impressions: Service Date/Time: Tuesday, February 13, 2018 11:06 - CONCLUSION: 1. Tubes and lines as described above. 2. Diffuse consolidation likely related to edema, diffuse infection or ARDS. This unchanged from the prior exam. 3. Bilateral chest tubes. A pneumothorax is not seen. There does appear to be a left effusion. Michael Gabriel MD Procedures * Intubation/mechanical ventilation right subclavian * Central line placement * Bilateral chest tube placement * Transesophageal echo . Assessment and Plan Disease Oriented Problem List: (1) PNA (pneumonia) Comment: MRSA + Enterobacter (2) Respiratory failure (3) ARDS (adult respiratory distress syndrome) (4) Sepsis Comment: MRSA (5) Anemia (6) Hypoalbuminemia (7) Bilateral pneumothoraces Comment: Recurrent and multiple pneumothoraces . (8) ARF (acute renal failure) Comment: REsolving Symptom Scale: (1) Pain 0-10 Scale: Unable to quantify Comment: No known prehospitalization pain syndromes. Current sources of discomfort might include orotracheal and orogastric intubations; vascular access lines; restraints; Alexandre catheter; chest tubes; prolonged bedbound status. (2) Dyspnea 0-10 Scale: Unable to quantify Comment: Patient with underlying pneumonia and bilateral pneumothoraces. Dyspnea currently managed with ventilatory support. (3) Encephalopathy 0-10 Scale: Unable to quantify Pertinent Non-Medical Issues Psychosocial: Has a male partner . She normally lives with him in a manufactured home. He is a smoker. Her 2 daughters are now down from [place] to help. Spiritual: Patient is mu-ism cheondoism. [employer] visits would be appreciated. Legal: There are no advance directives. Without written designation of a healthcare surrogate, proxy decision making would fall to both adult daughters. Ethical issues impacting care: Patient is currently incapacitated to make her own medical decisions. It is unclear if/when she will become capacitated to do so. . Important Contacts Alona Caballero (daughter and co-health care proxy) [phone] Zenobia Clay (daughter and co-health care proxy) [phone] Brett Mackay (boyfriend -- NO DECISION MAKING RIGHTS unless there is written documentation saying otherwise) [phone] . Prognosis On the one hand, other than her morbid obesity, this patient has very few health problems and has managed to stay out of the hospital. Ordinarily, we would expect her to respond well to treatment and improve.. This patient declined incredibly quickly and has very severe respiratory disease in spite of the fact that she has no known underlying chronic respiratory illness.She has multiple pneumothoraces. She has developed Enterobacter pneumonia on top of her MRSA pneumonia. She has had persistent elevated WBCs and bandemia. It remains unclear if she will pull through this. It is becoming more apparent that she might require tracheostomy if ongoing aggressive care is desired. Given her relatively good healthcare condition just days before the onset of this illness, she certainly deserves a decent trial of aggressive care. . . Code Status: Alternative Code (Per discussion with two daughters on 02/11/18) Plan == Code Status: ALT CODE (no shock; no chest compression) -- per discussion with both daughters on 02/13/18 == Medical Decision Making: Patient is currently incapacitated to make her own healthcare decisions. It is unclear if/when she will recover capacity to do so. Since there is no written designation of healthcare surrogacy that we are aware of, proxy decision making would fall to her 2 adult children -- Alona Caballero and Zenobia Clay. They both have accepted this role. == Goals of medical treatment: Given the patient was in good health just days before the onset of this illness, goals continue to be aggressive short of shock or chest compressions. However, daughters have seen lack of progress and don't think the patient would want to be maintained indefinitely on ventilatory support. If physicians do not think she will have a good chance of eventually being weaned, they will probably not want to go forward with tracheostomy. Met with patient's daughter Alona Fregoso participated in conversation via telephone. Medical update provided. Shared concerns of patient's ability to medical extubate given VDRF, SQ emphysema, necrotizing pna. Reviewed that patient remains at high risk of additional complications, continue decline and . reviewed that if patient is medically extubated, she remains at high risk for recurrent respiratory failure. Reviewed tach and peg if unable to med extubate. Both daughters expressed that patient's quality of life is their priority. They shared that patient has always been a very independent woman and would not elect long-term vent support or to depend on other for care. Goal of therapy at this time is to allow a few more days for clinical improvement, continue aggressive management short of no cardiac resuscitation. Peg/tach decision by the end of this week if patient unable to med extubate. == Symptoms: * Pain: No known pre-hospitalization pain syndromes. Current sources of discomfort might include orotracheal and orogastric intubations; vascular access lines; restraints; Alexandre catheter; chest tubes; prolonged bedbound status. Currently on fentanyl/midazolam. No further recommendations at this time. * Dyspnea: Patient with underlying pneumonia and bilateral pneumothoraces. Dyspnea currently managed with ventilatory support. Bilateral chest tubes in place. * Encephalopathy: Patient is currently sedated but underlying encephalopathy probably secondary to her sepsis. Hopefully this will improve if we are able to make headway with the underlying infection. No further recommendations at this time. == Case discussed with Dr. Esteban and bedside RN Osvaldo. == Palliative care will continue to follow to assist with symptom management and to further clarify goals of medical treatment as the clinical course evolves. . Time Spent Total Floor Time (mins): 38 (Total time to incloude review of medical records, physical exam, goals of care conversation with both daughters, case discussion with Dr Esteban and bedside RN. ) >50% Counseling/Coord of Care: Yes Attestation To help prompt me to consider important information that might be impacting today's encounter and assessment, information from prior notes written by myself or my colleagues may have been "brought forward" into today's note. My signature on this note, however, is an attestation that I personally performed the exam, history, and/or decision-making noted today, and, unless otherwise indicated, the interactions with patient, family, and staff as well as the review of records all occurred today. I also attest that the listed assessment and stated plan reflect my best clinical judgment today based on the combination of historical information, prior notes, and today's exam/ interactions. When time spent is documented, it refers only to time spent today by the signer, or if indicated, combined time spent today by collaborating physician/nurse practitioner. Myra Delatorre Feb 13, 2018 14:51
--- NOTE | 2018-02-13 14:57 | HHI.PR ---
Addendum to Inpatient Note Additional Information CT reviewed with radiologist large cavitary lesions perihilar distribution, less likely septic emboli BC remain negative will dc vancomycin cont zyvox Carlene Singleton MD Feb 13, 2018 14:57
[2018-02-13] MEDS: BUMETANIDE INJ 100 ML IV SCH (15:30)
[2018-02-13] MEDS: cefTRIAXone INJ 2,000 MG in SODIUM CHLORIDE 0.9% INJ 100 ML IV SCH (16:42)
[2018-02-13] MEDS: PROPOFOL 1000 MG/100 ML IV PRN ×2 (16:43→22:41)
--- NOTE | 2018-02-13 17:06 | PD.CAR.PN ---
CVT Progress Note Subjective/Hospital Course: 62-year-old female who presented on the 01/30/2018 with shortness of breath. She had apparently been ill for about a week with upper respiratory, possibly treated for the flu. During her hospitalization, she quickly deteriorated and was intubated and placed on the ventilator. Her sputum grew Enterobacter and MRSA. She developed a bilateral pneumothorax and has currently four chest tubes. She is on pressure control, FiO2 45%, sedated on propofol. She is not on any pressors at this time. Her CT scan shows a loculated pneumothorax and left anterior chest, not currently drained by the other 2 chest tubes that are in there. She has some multifocal dense consolidation and cavitation in both lungs, but worse on the right, concern for extensive pneumonia. Also extensive subcutaneous air entry bilaterally and a small right pneumothorax. 02/13 pt now has 2 right sided chest tubes and 2 left sided chest tubes no air leak noted / CT chest reviewed and discussed with Dr Thornton / still has extensive cavitary lesion right lung/ no ptx, and subq emphysema improving no surgical intervention at present Objective: GENERAL: sedated on vent, slowly weaning meds, opens eyes, not following commands SKIN: Warm and dry. extensive subq emphysema to chest and arms with some improvement HEAD: Normocephalic. EYES: No scleral icterus. No injection or drainage. NECK: Supple, trachea midline. No JVD or lymphadenopathy. CARDIOVASCULAR: Regular rate and rhythm without murmurs, gallops, or rubs. slightly tachycardic RESPIRATORY: Breath sounds equal bilaterally. chest tube x 4 2 right , 2 left at 40cm suction , no air leak GASTROINTESTINAL: Abdomen soft, non-tender, nondistended. / tolerating tube feeds MUSCULOSKELETAL: No cyanosis, or edema. BACK: Nontender without obvious deformity. No CVA tenderness. Vital Signs Date Time Temp Pulse Resp B/P (MAP) Pulse Ox O2 Delivery O2 Flow Rate FiO2 02/13/18 16:07 96 55 02/13/18 16:00 98.4 99 33 154/65 (94) 95 02/13/18 16:00 40 02/13/18 16:00 90 02/13/18 14:00 90 02/13/18 12:00 98.2 94 24 122/58 (79) 99 02/13/18 12:00 40 02/13/18 12:00 94 02/13/18 11:19 97 45 02/13/18 10:00 97 02/13/18 09:10 96 45 02/13/18 08:00 40 02/13/18 08:00 93 02/13/18 08:00 97.8 93 21 125/57 (79) 97 02/13/18 06:00 91 02/13/18 04:42 96 55 02/13/18 04:00 40 02/13/18 04:00 98.0 88 20 128/60 (82) 97 02/13/18 04:00 88 02/13/18 02:00 91 02/13/18 00:42 97 55 02/13/18 00:00 40 02/13/18 00:00 98.0 80 15 101/54 (70) 97 02/13/18 00:00 80 02/12/18 22:00 79 02/12/18 21:58 94 55 02/12/18 20:46 95 40 02/12/18 20:00 78 02/12/18 20:00 97.9 78 12 118/56 (76) 95 02/12/18 20:00 40 02/12/18 18:00 80 Labs: Laboratory Tests Test 02/13/18 06:10 02/13/18 16:05 White Blood Count 15.8 TH/MM3 (4.0-11.0) Red Blood Count 2.95 MIL/MM3 (4.00-5.30) Hemoglobin 8.2 GM/DL (11.6-15.3) Hematocrit 24.8 % (35.0-46.0) Mean Corpuscular Volume 83.9 FL (80.0-100.0) Mean Corpuscular Hemoglobin 27.7 PG (27.0-34.0) Mean Corpuscular Hemoglobin Concent 33.0 % (32.0-36.0) Red Cell Distribution Width 15.8 % (11.6-17.2) Platelet Count 711 TH/MM3 (150-450) Mean Platelet Volume 8.1 FL (7.0-11.0) Neutrophils (%) (Auto) 88.4 % (16.0-70.0) Lymphocytes (%) (Auto) 6.3 % (9.0-44.0) Monocytes (%) (Auto) 3.8 % (0.0-8.0) Eosinophils (%) (Auto) 1.1 % (0.0-4.0) Basophils (%) (Auto) 0.4 % (0.0-2.0) Neutrophils # (Auto) 14.0 TH/MM3 (1.8-7.7) Lymphocytes # (Auto) 1.0 TH/MM3 (1.0-4.8) Monocytes # (Auto) 0.6 TH/MM3 (0-0.9) Eosinophils # (Auto) 0.2 TH/MM3 (0-0.4) Basophils # (Auto) 0.1 TH/MM3 (0-0.2) CBC Comment DIFF FINAL Differential Comment Blood Urea Nitrogen 17 MG/DL (7-18) Creatinine 0.62 MG/DL (0.50-1.00) Random Glucose 171 MG/DL (74-106) Total Protein 6.6 GM/DL (6.4-8.2) Albumin 0.9 GM/DL (3.4-5.0) Calcium Level 8.1 MG/DL (8.5-10.1) Alkaline Phosphatase 357 U/L (45-117) Aspartate Amino Transf (AST/SGOT) 39 U/L (15-37) Alanine Aminotransferase (ALT/SGPT) 57 U/L (10-53) Total Bilirubin 0.5 MG/DL (0.2-1.0) Sodium Level 141 MEQ/L (136-145) Potassium Level 4.0 MEQ/L (3.5-5.1) Chloride Level 103 MEQ/L (98-107) Carbon Dioxide Level 30.8 MEQ/L (21.0-32.0) Anion Gap 7 MEQ/L (5-15) Estimat Glomerular Filtration Rate 98 ML/MIN (>89) Result Diagram: 02/13/18 0610 02/13/18 0610 (1) Bacteremia (2) Bilateral pneumothoraces Plan: chest tube s x 4 , no further PTX noted, subq emphysema improving no surgical intervention , will follow prn (3) PNA (pneumonia) Plan: on abx (4) Sepsis Problem Qualifiers (1) PNA (pneumonia): Qualified Codes: J18.9 - Pneumonia, unspecified organism (2) Sepsis: Qualified Codes: A41.9 - Sepsis, unspecified organism Linnea Castillo Feb 13, 2018 17:06
[2018-02-13] MEDS: CHLORHEXIDINE GLUCONATE 2 % 1 PACK (2 CLOTHS) TOP SCH (19:44)
--- NOTE | 2018-02-13 20:31 | HHI.PR ---
Subjective Remarks 62 YO Female with VDRF,PTx, 4 Chest tubes 2 chest tubes have airleak Sedated with Versed, Diprivan and Fentanyl On Vent CT chest loculated fluid collection not being drained by exising chest tubes Sig decreased SQ Emphysema Objective Vital Signs Vital Signs Date Time Temp Pulse Resp B/P (MAP) Pulse Ox O2 Delivery O2 Flow Rate FiO2 02/13/18 20:22 100 85 02/13/18 18:00 91 02/13/18 17:00 100 02/13/18 16:07 96 55 02/13/18 16:00 98.4 99 33 154/65 (94) 95 02/13/18 16:00 40 02/13/18 16:00 90 02/13/18 14:00 90 02/13/18 12:00 98.2 94 24 122/58 (79) 99 02/13/18 12:00 40 02/13/18 12:00 94 02/13/18 11:19 97 45 02/13/18 10:00 97 02/13/18 09:10 96 45 02/13/18 08:00 40 02/13/18 08:00 93 02/13/18 08:00 97.8 93 21 125/57 (79) 97 02/13/18 06:00 91 02/13/18 04:42 96 55 02/13/18 04:00 40 02/13/18 04:00 98.0 88 20 128/60 (82) 97 02/13/18 04:00 88 02/13/18 02:00 91 02/13/18 00:42 97 55 02/13/18 00:00 40 02/13/18 00:00 98.0 80 15 101/54 (70) 97 02/13/18 00:00 80 02/12/18 22:00 79 02/12/18 21:58 94 55 02/12/18 20:46 95 40 I/O 02/12/18 02/12/18 02/12/18 02/13/18 02/13/18 02/13/18 07:00 15:00 23:00 07:00 15:00 23:00 Intake Total 1572 ml 600 ml 640 ml 1580 ml 1600 ml Output Total 1270 ml 1290 ml 1210 ml 2250 ml Balance 302 ml 600 ml -650 ml 370 ml -650 ml IV Total 1165 ml 600 ml 550 ml 900 ml 750 ml Tube Feeding 347 ml 0 ml 620 ml 800 ml Tube Irrigant 90 ml Other 60 ml 60 ml 50 ml Output Urine Total 1250 ml 1250 ml 1200 ml 2250 ml Chest Tube Drainage Total 20 ml 40 ml 10 ml 0 ml # Bowel Movements 0 0 1 Result Diagram: 02/13/1860902/13/18609 Objective Remarks GENERAL: WBWN Female, on Vent, sedated SKIN: Warm and dry. HEAD: Normocephalic. EYES: No scleral icterus. No injection or drainage. NECK: Supple, trachea midline. No JVD or lymphadenopathy. CARDIOVASCULAR: Regular rate and rhythm without murmurs, gallops, or rubs. RESPIRATORY: Breath sounds equal bilaterally. No accessory muscle use. [address] SQ Emphysema. GASTROINTESTINAL: Abdomen soft, non-tender, nondistended. MUSCULOSKELETAL: No cyanosis, or edema. BACK: Nontender without obvious deformity. No CVA tenderness. A/P Assessment and Plan VDRF Post Influenza Pn MRSA PTX PLAN: Cont Vent support Cont Abx TF Sedation with Diprivan, Versed and Fentanyl. Chest tubes to suction. Dru Pride MD Feb 13, 2018 20:31
[2018-02-14] VITALS (19 sets, daily range): BP systolic 129–170; BP diastolic 63–79; PULSE 92–113; RESP 16–34; TEMP 97.8–98.9; O2SAT 90–100
[2018-02-14] MEDS: DILTIAZEM HCL 30 MG TAB PO SCH ×5 (04:45→23:16)
[2018-02-14] MEDS: PROPOFOL 1000 MG/100 ML IV PRN (04:45)
[2018-02-14] MEDS: HEPARIN SODIUM - SQ 10,000 UNITS/ML VIAL SQ SCH ×3 (04:46→21:13)
[2018-02-14] MEDS: INSULIN ASPART SUPPLEMENTAL SCALE SQ SCH ×4 (04:46→23:16)
--- NOTE | 2018-02-14 04:52 | RADRPT ---
EXAM DATE/TIME: 02/14/2018 03:19 [facility] COMPARISON: CHEST SINGLE AP, February 13, 2018, 11:06. INDICATIONS : Shortness of breath, possible pulmonary disease. MEDICAL HISTORY : None. SURGICAL HISTORY : Gastric bypass. Tonsillectomy. ENCOUNTER: Subsequent ACUITY: 2 weeks PAIN SCORE: Non-responsive. LOCATION: Bilateral chest FINDINGS: A single view of the chest demonstrates bilateral airspace disease. Bilateral chest tubes without def inite pneumothorax. Endotracheal tube and nasogastric tube appear unchanged. Right subclavian central line stable.. Osseous structures are intact. CONCLUSION: Bilateral chest tubes without pneumothorax. Bilateral airspace disease. Karri Muhammad MD on February 14, 2018 at 4:49 Board Certified Radiologist. This report was verified electronically.
[2018-02-14 06:53] LABS: AUTOMATED NEUTROPHIL # 13.8 TH/MM3 (1.8-7.7); BASOPHIL % 0.2 % (0.0-2.0); EOSINOPHIL # 0.2 TH/MM3 (0-0.4); EOSINOPHIL % 1.2 % (0.0-4.0); HEMATOCRIT 25.6 % (35.0-46.0); HEMOGLOBIN 8.2 GM/DL (11.6-15.3); LYMPH % 7.5 % (9.0-44.0); LYMPHOCYTE # 1.2 TH/MM3 (1.0-4.8); MEAN CELL VOLUME 84.8 FL (80.0-100.0); MEAN CORPUSCULAR HEMOGLOBIN 27.1 PG (27.0-34.0); MEAN PLATELET VOLUME 7.8 FL (7.0-11.0); MONOCYTE # 0.5 TH/MM3 (0-0.9); NEUT % 88.1 % (16.0-70.0); PLATELET COUNT 684 TH/MM3 (150-450); RED BLOOD COUNT 3.02 MIL/MM3 (4.00-5.30); RED CELL DISTRIBUTION WIDTH 15.9 % (11.6-17.2); WHITE BLOOD COUNT 15.7 TH/MM3 (4.0-11.0)
[2018-02-14 07:06] LABS: BICARBONATE 34.1 MEQ/L (21.0-32.0); CALCIUM 8.3 MG/DL (8.5-10.1); CREATININE 0.58 MG/DL (0.50-1.00); PHOSPHORUS 4.1 MG/DL (2.5-4.9)
[2018-02-14] MEDS: CHLORHEXIDINE 0.12% (ORAL KIT) 15 ML CUP MT SCH ×2 (08:00→21:12)
[2018-02-14] MEDS: SODIUM CHLORIDE 0.9% FLUSH 10 ML FLUSH IV FLUSH SCH ×2 (08:11→21:12)
[2018-02-14] MEDS: ASPIRIN 81 MG CHEW TAB CHEW SCH (08:11)
[2018-02-14] MEDS: DOCUSATE SODIUM 50 MG/SENNA 8.6 MG TAB PO SCH ×2 (08:11→21:00)
[2018-02-14] MEDS: FAMOTIDINE 20 MG TAB PO SCH ×2 (08:11→21:12)
--- NOTE | 2018-02-14 08:38 | HHI.CCPN ---
Subjective Remarks/Hospital Course 01/30: 62-year-old female presents for evaluation of increasing shortness of breath and chest pain. She reports 1 week of coughing 3 days of pain in her left chest which radiates to her back, which prompted the visit to the emergency room yesterday. She rates her pain a 6 out of 10. She reports fevers , chills, fatigue, mild nausea. She denies any abdominal pain, vomiting. Patient denies any significant past medical history. Symptom onset was gradual , symptom severity is severe, there are no alleviating factors. Patient states that she has been taking the azithromycin antibiotics that were prescribed to her. She denies any current or historical tobacco use. 01/31: Intubated at 1 AM this morning and placed on mechanical ventilation due to worsening respiratory distress. Currently sedated, orally intubated on mechanical ventilation. 02/01: Remains sedated, orally intubated on mechanical ventilation. Went into A. fib with RVR this morning. Loaded with amiodarone, started on amiodarone drip and given digoxin 0.5 mg IV 02/02: Remains sedated, orally intubated on mechanical ventilation. Right sided pigtail catheter in place with 1+ air leak. Converted to sinus rhythm overnight. Remains on amiodarone gtt. 02/03: Remains sedated, orally intubated on mechanical ventilation. 1+ air leak and right sided pigtail catheter. Tolerating tube feeds. Remains on amiodarone gtt. 02/04: Noted to have pneumothorax on the left side this morning on routine chest x -ray which appeared to be under tension. Right sided pigtail catheter placed by Dr. Peña with reexpansion of lung. Patient remains sedated, orally intubated on mechanical ventilation. 1+ airleak and bilateral chest tubes noted. 02/05: Afebrile. Persistent leukocytosis, bilateral chest tubes continue on wall suction. Chest x-ray pending this a.m.. Patient scheduled for GRANT today, discussed with Dr. Vázquez. Patient continues on amiodarone infusion with sinus rhythm. Postprocedure GRANT,this afternoon, the patient became extremely agitated, noted significant increase in subcu emphysema, peak pressures 50's, O2 saturation significantly decreased to 78-80 %. Stat chest x-ray performed patient was noted to have a significant right pneumothorax. 20 Persian right chest tube placement emergently, with increase in O2 saturation decrease in peak inspiratory pressures. 02/06: Afebrile. Patient with persistent bilateral pneumothoraces, with diffuse bilateral infiltrates and massive SQ emphysema. O2 requirement significantly increased during the night, PIP 38-44. 28 F chest tubes were placed bilaterally with resolution of left pneumothorax and minimization of right pneumothorax, and improved oxygenation. 02/07: TMax 100.1 Chest tubes remain on suction. Resolution of pneumothoraces, continued extensive SQ emphysema. Persistent leukocytosis noted. FiO2 weaned to 50%. 02/08: Late entry note patient seen at 1250. Attempts at CPAP trials, unsuccessful this morning. FiO2 decreased 50%, with adequate oxygenation. 02/09: Afebrile. The patient was transitioned to CPAP trials with pressure support of 22/8. FiO2 currently at 55% continuing to wean. Patient noted with positive fluid balance Lasix 40 mg IV now, patient is initiated on Lasix 40 daily. Patient with positive air leak in chest tubes #1-28 Persian right and #3 pigtail left, both at 2+. Sedation vacation initiated early this a.m. patient neurologically intact. Patient continues on moderate sedation for CPAP to maintain ventilator synchrony plan for transitioning to Precedex. Noted improvement with subcu emphysema. Extensive discussion with patient's daughter regarding a possibility of a tracheostomy if unsuccessful with ventilator weaning process. 02/10: Subcutaneous emphysema has worsened overnight per RN who took care of the patient yesterday, now extending to the upper chest left neck and to the left side of the face including left eyelids. No increase in FiO2 requirement currently on 55%. I have reduced inspiratory pressure from 32 to 28. FiO2 reduced to 50%. Will check a repeat chest x-ray in afternoon if needed. Will request CT surgical evaluation for persistent subcutaneous emphysema despite 2 chest tubes bilaterally 02/11 Patient is sedated with Diprivan, Versed and Fentanyl drips. T: 101.[address] guided chest tube placement by IR today 02/12 No events overnight. Remains sedated and intubated. Afebrile. On PC/AC with PEEP: 8 and FIO2 40%. 02/13 Patient remains intubated and heavily sedated. Afebrile. Repeat CT chest yesterday showed loculated anterior left pneumothorax has resolved. A small left pleural effusion remains present and the 2 left chest tubes appear to be in good position to drain the fluid. Significant improvement in the bilateral chest wall subcutaneous emphysema. 02/14 Patient remains sedated and intubated. Afebrile. On Bumex drip 0.5mg/hr. Objective Vital Signs Date Time Temp Pulse Resp B/P (MAP) Pulse Ox O2 Delivery O2 Flow Rate FiO2 02/14/18 07:44 92 45 02/14/18 06:00 97 02/14/18 04:00 98.0 16 150/72 (98) Intake and Output 02/14/18 02/14/18 02/15/18 08:00 16:00 00:00 Intake Total 1210 ml Output Total 2300 ml Balance -1090 ml Result Diagram: 02/14/18 0600 02/14/18 0600 Other Results Laboratory Tests Test 02/13/18 16:05 02/13/18 19:45 02/14/18 06:00 Vancomycin Level Trough 16.5 MCG/ML Potassium Level 3.7 MEQ/L 3.4 MEQ/L White Blood Count 15.7 TH/MM3 Red Blood Count 3.02 MIL/MM3 Hemoglobin 8.2 GM/DL Hematocrit 25.6 % Mean Corpuscular Volume 84.8 FL Mean Corpuscular Hemoglobin 27.1 PG Mean Corpuscular Hemoglobin Concent 32.0 % Red Cell Distribution Width 15.9 % Platelet Count 684 TH/MM3 Mean Platelet Volume 7.8 FL Neutrophils (%) (Auto) 88.1 % Lymphocytes (%) (Auto) 7.5 % Monocytes (%) (Auto) 3.0 % Eosinophils (%) (Auto) 1.2 % Basophils (%) (Auto) 0.2 % Neutrophils # (Auto) 13.8 TH/MM3 Lymphocytes # (Auto) 1.2 TH/MM3 Monocytes # (Auto) 0.5 TH/MM3 Eosinophils # (Auto) 0.2 TH/MM3 Basophils # (Auto) 0.0 TH/MM3 CBC Comment DIFF FINAL Differential Comment Blood Urea Nitrogen 14 MG/DL Creatinine 0.58 MG/DL Random Glucose 174 MG/DL Calcium Level 8.3 MG/DL Magnesium Level 2.0 MG/DL Sodium Level 140 MEQ/L Chloride Level 100 MEQ/L Carbon Dioxide Level 34.1 MEQ/L Anion Gap 6 MEQ/L Estimat Glomerular Filtration Rate 105 ML/MIN Imaging Last Impressions Chest X-Ray 02/14/18 0000 Signed Impressions: Service Date/Time: February 03:19 - CONCLUSION: Bilateral chest tubes without pneumothorax. Bilateral airspace disease. Karri Muhammad MD Chest CT 02/12/18 1334 Signed Impressions: Service Date/Time: Monday, February 12, 2018 14:07 - CONCLUSION: 1. The loculated anterior left pneumothorax has resolved. A small left pleural effusion remains present and the 2 left chest tubes appear to be in good position to drain the fluid. 2. Significant improvement in the bilateral chest wall subcutaneous emphysema. 3. Stable severe kinking of the large bore right chest tube. This chest tube also extends into the fissure. Given these 2 findings, this likely not providing any significant suction. Consider removal. 4. Stable severe bilateral airspace consolidation with multifocal areas of cavitation. Michael Perea MD Liver Ultrasound 02/11/18 0000 Signed Impressions: Service Date/Time: Sunday, February 11, 2018 09:34 - CONCLUSION: Nondiagnostic examination CT scan is recommended for further evaluation if clinically indicated. To Vaughn MD Neck CT 02/10/18 0000 Signed Impressions: Service Date/Time: Saturday, February 10, 2018 14:57 - CONCLUSION: 1. Extensive subcutaneous edema in the neck which has dissected cephalad from the chest and is worse on the left side. 2. Support apparatus as above. See chest CT report for evaluation of lungs. 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 No adenopathy. Everett Ng MD Procedures 02/05- Right emergent 20 F chest tube placement 02/06: Left 28 Persian chest tube placement, right chest tube replacement 28 Persian Objective Remarks HEENT/ Neuro: Sedated, orally intubated, Pallor present, no icterus, tongue/ mucosa moist significant SQ emphysema. Left side of the face eyelid has significant subcu emphysema Neck: No JVD. Left side of the neck with significant subcutaneous emphysema Chest/Pulm: on mech vent, air entry decreased bilaterally at bases, scattered rhonchi bilaterally. Bilateral pigtail catheters insitu., and 28F chest tubes bilaterally to -40cm H20. CVS: S1-S2 regular, no murmur GI/abdomen: soft, nontender, bowel sounds hypoactive Neuro: RASS -2, currently on fentanyl, propofol and Versed infusions. Patient moving extremities 4 Extremities: warm bilaterally, 1+bilateral peripheral edema upper and lower extremities A/P Assessment and Plan Neuro: Neuro checks per ICU protocol propofol and fentanyl to maintain ventilator synchrony. Daily sedation vacation Pulm: Acute hypoxemic respiratory failure MRSA pneumonia MRSA bacteremia COPD Persistent bilateral pneumothorax, significant subcutaneous emphysema Post Influenza pneumonia? Continue vent support keep sats >92%, will need trach once more stable - DuoNeb scheduled and when necessary SBT daily as bernarda. Bilateral pigtail catheters and [address] in place(4 total) Repeat CT chest 02/12 The loculated anterior left pneumothorax has resolved. the 2 left chest tubes appear to be in good position to drain the fluid. Significant improvement in the bilateral chest wall subQ mphysema. Stable severe bilateral airspace consolidation with multifocal areas of cavitation. -Thoracic surgery is following- Dr. Thornton CXR today- B/l airspace disease, CT;s in place, no evidence of PTX Awaiting decision from family reg trach/PEG. Patient is unlikely to be medically extubated. Renal: Acute kidney injury-resolved Dehydration-resolved - Maintain Alexandre -Monitor renal function, I/O's, electrolytes replacement per protocol. Continue Bumex drip 0.5mg/hr Cardiovascular: A. fib with RVR (converted to NSR 02/02) -02/05 amiodarone infusion discontinued. - 02/05 GRANT -no valvular vegetations. EF 55-60%, trace MVR, mild TVR, PAP 35 Monitor HR and BP keep MAP>65mmHfg Increase Cardizem 60mg Q6 GI Elevated LFT;s Hepatitis profile: Negative US liver: non-diagnostic study -Tube feeds Jevity 1.5 60 cc/hr at goal,- On Pepcid 20mg BID ID: MRSA, Enterobacter pneumonia MRSA Bacteremia - Antibiotics per ID. On Zyvox, Rocephin. Monitor for signs of infections ( Fever, WBC) -Repeat blood cultures per ID. Bal culture/blood cultures growing MRSA. Legionella and strep pneumo antigen negative -ID- Dr. Singleton following. 02/10 Sputum: MRSA 02/10 BC: NGTD Endocrine: Hyperglycemia Medium scale sliding scale insulin dosing Glucose monitoring per ICU protocol DVT GI prophylaxis - Teds SCDs - Subcutaneous heparin - Pepcid Lines: Right subclavian central line inserted 02/01. Peripheral IVs 2 Palliative care is following Patient was made Alternative code Level 3 Lenard Qureshi MD Feb 14, 2018 08:38
[2018-02-14] MEDS: LINEZOLID 600 MG PREMIX 300 ML IV SCH ×2 (12:41→23:17)
--- NOTE | 2018-02-14 14:20 | HHI.IDPN ---
Subjective Subjective Remarks CTs x 4 afebrile not waking up despite off fentanyl since 6 am Antibiotics CFTX Zyvox IV Lines Line sites with no e.o infection Past Medical History Gastric bypass Tonsillectomy Allergies: Coded Allergies: No Known Allergies (Unverified , 01/30/18) Objective . Vital Signs Date Time Temp Pulse Resp B/P (MAP) Pulse Ox O2 Delivery O2 Flow Rate FiO2 02/14/18 12:00 40 02/14/18 10:28 90 45 02/14/18 10:00 101 02/14/18 08:00 40 02/14/18 08:00 99 02/14/18 08:00 97.8 99 33 170/78 (108) 92 02/14/18 07:44 92 45 02/14/18 06:32 100 45 02/14/18 06:00 97 02/14/18 04:42 100 55 02/14/18 04:00 96 02/14/18 04:00 98.0 96 16 150/72 (98) 98 02/14/18 04:00 40 02/14/18 03:32 96 65 02/14/18 02:00 92 02/14/18 00:00 40 02/14/18 00:00 98.0 93 16 134/63 (86) 98 02/14/18 00:00 93 02/13/18 23:33 100 65 02/13/18 22:00 91 02/13/18 20:22 100 85 02/13/18 20:00 98.0 93 23 147/71 (96) 100 02/13/18 20:00 93 02/13/18 20:00 40 02/13/18 18:00 91 02/13/18 17:00 100 02/13/18 16:07 96 55 02/13/18 16:00 98.4 99 33 154/65 (94) 95 02/13/18 16:00 40 02/13/18 16:00 90 . Laboratory Tests Test 02/13/18 06:10 02/14/18 06:00 White Blood Count 15.8 TH/MM3 15.7 TH/MM3 Red Blood Count 2.95 MIL/MM3 3.02 MIL/MM3 Hemoglobin 8.2 GM/DL 8.2 GM/DL Hematocrit 24.8 % 25.6 % Mean Corpuscular Volume 83.9 FL 84.8 FL Mean Corpuscular Hemoglobin 27.7 PG 27.1 PG Mean Corpuscular Hemoglobin Concent 33.0 % 32.0 % Red Cell Distribution Width 15.8 % 15.9 % Platelet Count 711 TH/MM3 684 TH/MM3 Mean Platelet Volume 8.1 FL 7.8 FL Neutrophils (%) (Auto) 88.4 % 88.1 % Lymphocytes (%) (Auto) 6.3 % 7.5 % Monocytes (%) (Auto) 3.8 % 3.0 % Eosinophils (%) (Auto) 1.1 % 1.2 % Basophils (%) (Auto) 0.4 % 0.2 % Neutrophils # (Auto) 14.0 TH/MM3 13.8 TH/MM3 Lymphocytes # (Auto) 1.0 TH/MM3 1.2 TH/MM3 Monocytes # (Auto) 0.6 TH/MM3 0.5 TH/MM3 Eosinophils # (Auto) 0.2 TH/MM3 0.2 TH/MM3 Basophils # (Auto) 0.1 TH/MM3 0.0 TH/MM3 CBC Comment DIFF FINAL DIFF FINAL Differential Comment Laboratory Tests Test 02/12/18 20:29 02/13/18 06:10 02/13/18 19:45 02/14/18 06:00 Potassium Level 3.7 MEQ/L 4.0 MEQ/L 3.7 MEQ/L 3.4 MEQ/L Blood Urea Nitrogen 17 MG/DL 14 MG/DL Creatinine 0.62 MG/DL 0.58 MG/DL Random Glucose 171 MG/DL 174 MG/DL Total Protein 6.6 GM/DL Albumin 0.9 GM/DL Calcium Level 8.1 MG/DL 8.3 MG/DL Alkaline Phosphatase 357 U/L Aspartate Amino Transf (AST/SGOT) 39 U/L Alanine Aminotransferase (ALT/SGPT) 57 U/L Total Bilirubin 0.5 MG/DL Sodium Level 141 MEQ/L 140 MEQ/L Chloride Level 103 MEQ/L 100 MEQ/L Carbon Dioxide Level 30.8 MEQ/L 34.1 MEQ/L Anion Gap 7 MEQ/L 6 MEQ/L Estimat Glomerular Filtration Rate 98 ML/MIN 105 ML/MIN Magnesium Level 2.0 MG/DL Imaging Last Impressions Chest X-Ray 02/14/18 0000 Signed Impressions: Service Date/Time: February 03:19 - CONCLUSION: Bilateral chest tubes without pneumothorax. Bilateral airspace disease. Karri Muhammad MD Chest CT 02/12/18 1334 Signed Impressions: Service Date/Time: Monday, February 12, 2018 14:07 - CONCLUSION: 1. The loculated anterior left pneumothorax has resolved. A small left pleural effusion remains present and the 2 left chest tubes appear to be in good position to drain the fluid. 2. Significant improvement in the bilateral chest wall subcutaneous emphysema. 3. Stable severe kinking of the large bore right chest tube. This chest tube also extends into the fissure. Given these 2 findings, this likely not providing any significant suction. Consider removal. 4. Stable severe bilateral airspace consolidation with multifocal areas of cavitation. Michael Perea MD Liver Ultrasound 02/11/18 0000 Signed Impressions: Service Date/Time: Sunday, February 11, 2018 09:34 - CONCLUSION: Nondiagnostic examination CT scan is recommended for further evaluation if clinically indicated. To Vaughn MD Neck CT 02/10/18 0000 Signed Impressions: Service Date/Time: Saturday, February 10, 2018 14:57 - CONCLUSION: 1. Extensive subcutaneous edema in the neck which has dissected cephalad from the chest and is worse on the left side. 2. Support apparatus as above. See chest CT report for evaluation of lungs. 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 No adenopathy. Everett Ng MD Physical Exam CONSTITUTIONAL/GENERAL: On the vent SKIN: No jaundice, rashes, or lesions. Ecchymoses on upper extremities. Skin temperature appropriate. generalized edema less prominent Sq emphysema HEAD: Atraumatic. Normocephalic. EYES: Pupils equal and round and reactive. No scleral icterus. No injection or drainage. ENT: No nasal discharge, orally intubated NECK: Supple, nontender. CARDIOVASCULAR: Regular rate and rhythm without murmurs, gallops, or rubs. RESPIRATORY/CHEST: Symmetric, unlabored respirations. Rhonchi b/l. CTx2 on R and CT x 2 on the L GASTROINTESTINAL: Abdomen soft, nondistended. Obese. Mild grimacing during palpation, not guarding. GENITOURINARY: Without palpable bladder distension. Alexandre catheter in place. MUSCULOSKELETAL: Extremities without clubbing, cyanosis, + 3 diffuse edema. . NEUROLOGICAL: does noty track, eyes opened intermittently unresponsive nmot fopllowing commands PSYCHIATRIC: unable to assess LINE: no evidence of infection Assessment & Plan Remarks IMPRESSION MRSA PNA Multiple b/l pneumothoraces ? postinfluenza PNA Loculated hydropneumothorax: ? empyema Acute VDRF not weaning ; High grade , sustained MRSA bacteremia GRANT negative Severe leukocytosis and bandemia New PNA, Enterobacter (panS) along with MRSA Empyema and multiple cavitary lesions - essentaially necrotizing PNA - no e/o endocarditis - CTS not planning to do any sx MS change PLAN dc CFTX Continue Zyvox. Monitor platelets and HCO3. Carlene Singleton MD Feb 14, 2018 14:20
--- NOTE | 2018-02-14 14:25 | HHI.HCPN ---
Reason for visit a. To assist with evaluation and management of symptoms including: dyspnea; encephalopathy, pain b. To assist medical decision maker(s) with: better understanding of current medical conditions; weighing benefits/burdens of medical treatment options; making medical treatment decisions. . Subjective/Interval History Palliative care follow-up for further clarifications of goals of care, emotional support. Patient seen and medical ICU. She remains endotracheally intubated on mechanical ventilation. Propofol and Versed weaned off, currently on fentanyl drip. Patient with eyes open, no tracking or following any commands. Not attempting to communicate. Patient mildly tachycardic with heart rate in the low 100s. Remains 45% FiO2, breathing over the vent with respiration rate in the high 20s to low 30s. Patient continue failing CPAP trials. Laboratory workup today revealing persistent leukocytosis 15.7, Hgb stable 8.2. Chest x-ray today revealing bilateral airspace disease. Patient was started on Bumex drip, good urinary output. Case discussed with pulmonology Dr. Pride. Patient on day #15 of trach and peg. Pulmonology recommended to hold trach/peg decision until early next week in order to allow a few more days for clinical improvement, continue attempts at medical extubation. Communicated this to patient's daughters Pearl. Medical update provided. Reviewed that patient remains at high risk for further complications, continued decline and . Reviewed that is patient is medically extubated, she remains at a very high risk for reintubation. Daughter is wishing to allowed a few more days for clinical improvement to continue attempts at medical extubation. Trach and PEG decision vs transition to comfort directed care to be made early next week. Dr. Esteban updated. Case discussed with bedside RN Osvaldo. . Family/friend interactions See interval note. . Advance Directives Living Will: Never completed Health Care Surrogate: Never completed Durable Power of Filter Press Operator: Never completed Advance Directive Specifics Date completed: Patient has never completed an advanced directive. . Health Care Surrogate(s): There is no written designation of healthcare surrogate. . Documented care wishes: There is no written documentation of healthcare goals/preferences. . Significant change in goals: Aggressive management short of no chest compressions or defibrillation. . Objective Vital Signs Date Time Temp Pulse Resp B/P (MAP) Pulse Ox O2 Delivery O2 Flow Rate FiO2 02/14/18 12:00 40 02/14/18 10:28 90 45 02/14/18 10:00 101 02/14/18 08:00 40 02/14/18 08:00 99 02/14/18 08:00 97.8 99 33 170/78 (108) 92 02/14/18 07:44 92 45 02/14/18 06:32 100 45 02/14/18 06:00 97 02/14/18 04:42 100 55 02/14/18 04:00 96 02/14/18 04:00 98.0 96 16 150/72 (98) 98 02/14/18 04:00 40 02/14/18 03:32 96 65 02/14/18 02:00 92 02/14/18 00:00 40 02/14/18 00:00 98.0 93 16 134/63 (86) 98 02/14/18 00:00 93 02/13/18 23:33 100 65 02/13/18 22:00 91 02/13/18 20:22 100 85 02/13/18 20:00 98.0 93 23 147/71 (96) 100 02/13/18 20:00 93 02/13/18 20:00 40 02/13/18 18:00 91 02/13/18 17:00 100 02/13/18 16:07 96 55 02/13/18 16:00 98.4 99 33 154/65 (94) 95 02/13/18 16:00 40 02/13/18 16:00 90 Intake & Output 02/14/18 02/14/18 07:00 19:00 Intake Total 2160 ml Output Total 2300 ml Balance -140 ml IV Total 1350 ml Tube Feeding 750 ml Other 60 ml Output Urine Total 2300 ml Chest Tube Drainage Total 0 ml # Bowel Movements 1 Physical Exam CONSTITUTIONAL/GENERAL: This is an obese patient in the medical intensive care unit bed. No apparent distress. TUBES/LINES/DRAINS: Orotracheal tube; orogastric tube; right subclavian central line; bilateral chest tubes x2; peripheral IV; soft wrist restraints; sequential compressive devices. SKIN: No jaundice, rashes. Ecchymoses on upper extremities. No wounds seen anteriorly. Skin temperature appropriate. Not diaphoretic. EYES: Pupils equal and round. Unable to evaluate extraocular movements. Bilateral periorbital edema. No scleral icterus. No injection or drainage. ENT: Unable to evaluate hearing. Nose without bleeding or purulent drainage. Moist oral mucosa. NECK: Neck somewhat difficult to examine due to obesity and SQ emphysema. Trachea midline. CARDIOVASCULAR: Regular rate/rhythm without murmurs, gallops, or rubs. RESPIRATORY/CHEST: Bilateral chest tubes. Symmetric respirations on vent. Decreased air movement at bases. Scattered rhonchi bilaterally. GASTROINTESTINAL: Abdomen obese, large, soft. Active bowel sounds. GENITOURINARY: Without palpable bladder distension. Alexandre catheter in place. MUSCULOSKELETAL: Extremities without clubbing, cyanosis. Widespread edema vs SQ emphysema. No mottling. NEUROLOGICAL: Eyes open. Not tracking, following commands were attempting to communicate. PSYCHIATRIC: Unable to assess due to level of responsiveness. . Diagnostic Tests Laboratory Laboratory Tests Test 02/12/18 04:45 02/12/18 16:45 02/12/18 20:29 02/13/18 06:10 White Blood Count 18.7 TH/MM3 (4.0-11.0) 15.8 TH/MM3 (4.0-11.0) Red Blood Count 2.93 MIL/MM3 (4.00-5.30) 2.95 MIL/MM3 (4.00-5.30) Hemoglobin 8.1 GM/DL (11.6-15.3) 8.2 GM/DL (11.6-15.3) Hematocrit 24.6 % (35.0-46.0) 24.8 % (35.0-46.0) Mean Corpuscular Volume 84.1 FL (80.0-100.0) 83.9 FL (80.0-100.0) Mean Corpuscular Hemoglobin 27.5 PG (27.0-34.0) 27.7 PG (27.0-34.0) Mean Corpuscular Hemoglobin Concent 32.7 % (32.0-36.0) 33.0 % (32.0-36.0) Red Cell Distribution Width 15.9 % (11.6-17.2) 15.8 % (11.6-17.2) Platelet Count 632 TH/MM3 (150-450) 711 TH/MM3 (150-450) Mean Platelet Volume 8.3 FL (7.0-11.0) 8.1 FL (7.0-11.0) Neutrophils (%) (Auto) 90.0 % (16.0-70.0) 88.4 % (16.0-70.0) Lymphocytes (%) (Auto) 5.3 % (9.0-44.0) 6.3 % (9.0-44.0) Monocytes (%) (Auto) 3.4 % (0.0-8.0) 3.8 % (0.0-8.0) Eosinophils (%) (Auto) 0.8 % (0.0-4.0) 1.1 % (0.0-4.0) Basophils (%) (Auto) 0.5 % (0.0-2.0) 0.4 % (0.0-2.0) Neutrophils # (Auto) 16.8 TH/MM3 (1.8-7.7) 14.0 TH/MM3 (1.8-7.7) Lymphocytes # (Auto) 1.0 TH/MM3 (1.0-4.8) 1.0 TH/MM3 (1.0-4.8) Monocytes # (Auto) 0.6 TH/MM3 (0-0.9) 0.6 TH/MM3 (0-0.9) Eosinophils # (Auto) 0.1 TH/MM3 (0-0.4) 0.2 TH/MM3 (0-0.4) Basophils # (Auto) 0.1 TH/MM3 (0-0.2) 0.1 TH/MM3 (0-0.2) CBC Comment DIFF FINAL DIFF FINAL Differential Comment Blood Urea Nitrogen 21 MG/DL (7-18) 17 MG/DL (7-18) Creatinine 0.66 MG/DL (0.50-1.00) 0.62 MG/DL (0.50-1.00) Random Glucose 152 MG/DL (74-106) 171 MG/DL (74-106) Total Protein 6.4 GM/DL (6.4-8.2) 6.6 GM/DL (6.4-8.2) Albumin 0.8 GM/DL (3.4-5.0) 0.9 GM/DL (3.4-5.0) Calcium Level 7.9 MG/DL (8.5-10.1) 8.1 MG/DL (8.5-10.1) Phosphorus Level 3.5 MG/DL (2.5-4.9) Magnesium Level 2.2 MG/DL (1.5-2.5) Alkaline Phosphatase 354 U/L (45-117) 357 U/L (45-117) Aspartate Amino Transf (AST/SGOT) 44 U/L (15-37) 39 U/L (15-37) Alanine Aminotransferase (ALT/SGPT) 78 U/L (10-53) 57 U/L (10-53) Total Bilirubin 0.8 MG/DL (0.2-1.0) 0.5 MG/DL (0.2-1.0) Sodium Level 140 MEQ/L (136-145) 141 MEQ/L (136-145) Potassium Level 3.1 MEQ/L (3.5-5.1) 3.7 MEQ/L (3.5-5.1) 4.0 MEQ/L (3.5-5.1) Chloride Level 104 MEQ/L (98-107) 103 MEQ/L (98-107) Carbon Dioxide Level 31.2 MEQ/L (21.0-32.0) 30.8 MEQ/L (21.0-32.0) Anion Gap 5 MEQ/L (5-15) 7 MEQ/L (5-15) Estimat Glomerular Filtration Rate 91 ML/MIN (>89) 98 ML/MIN (>89) Vancomycin Level Trough 18.5 MCG/ML (5.0-10.0) Test 02/13/18 16:05 02/13/18 19:45 02/14/18 06:00 Vancomycin Level Trough 16.5 MCG/ML (5.0-10.0) Potassium Level 3.7 MEQ/L (3.5-5.1) 3.4 MEQ/L (3.5-5.1) White Blood Count 15.7 TH/MM3 (4.0-11.0) Red Blood Count 3.02 MIL/MM3 (4.00-5.30) Hemoglobin 8.2 GM/DL (11.6-15.3) Hematocrit 25.6 % (35.0-46.0) Mean Corpuscular Volume 84.8 FL (80.0-100.0) Mean Corpuscular Hemoglobin 27.1 PG (27.0-34.0) Mean Corpuscular Hemoglobin Concent 32.0 % (32.0-36.0) Red Cell Distribution Width 15.9 % (11.6-17.2) Platelet Count 684 TH/MM3 (150-450) Mean Platelet Volume 7.8 FL (7.0-11.0) Neutrophils (%) (Auto) 88.1 % (16.0-70.0) Lymphocytes (%) (Auto) 7.5 % (9.0-44.0) Monocytes (%) (Auto) 3.0 % (0.0-8.0) Eosinophils (%) (Auto) 1.2 % (0.0-4.0) Basophils (%) (Auto) 0.2 % (0.0-2.0) Neutrophils # (Auto) 13.8 TH/MM3 (1.8-7.7) Lymphocytes # (Auto) 1.2 TH/MM3 (1.0-4.8) Monocytes # (Auto) 0.5 TH/MM3 (0-0.9) Eosinophils # (Auto) 0.2 TH/MM3 (0-0.4) Basophils # (Auto) 0.0 TH/MM3 (0-0.2) CBC Comment DIFF FINAL Differential Comment Blood Urea Nitrogen 14 MG/DL (7-18) Creatinine 0.58 MG/DL (0.50-1.00) Random Glucose 174 MG/DL (74-106) Calcium Level 8.3 MG/DL (8.5-10.1) Magnesium Level 2.0 MG/DL (1.5-2.5) Sodium Level 140 MEQ/L (136-145) Chloride Level 100 MEQ/L (98-107) Carbon Dioxide Level 34.1 MEQ/L (21.0-32.0) Anion Gap 6 MEQ/L (5-15) Estimat Glomerular Filtration Rate 105 ML/MIN (>89) Result Diagram: 02/14/18 0600 02/14/18 0600 Imaging Last 24 hours Impressions Chest X-Ray 02/14/18 0000 Signed Impressions: Service Date/Time: February 03:19 - CONCLUSION: Bilateral chest tubes without pneumothorax. Bilateral airspace disease. Karri Muhammad MD Procedures * Intubation/mechanical ventilation right subclavian * Central line placement * Bilateral chest tube placement * Transesophageal echo . Assessment and Plan Disease Oriented Problem List: (1) PNA (pneumonia) Comment: MRSA + Enterobacter (2) Respiratory failure (3) ARDS (adult respiratory distress syndrome) (4) Sepsis Comment: MRSA (5) Anemia (6) Hypoalbuminemia (7) Bilateral pneumothoraces Comment: Recurrent and multiple pneumothoraces . (8) ARF (acute renal failure) Comment: REsolving (9) Encephalopathy Symptom Scale: (1) Pain 0-10 Scale: Unable to quantify Comment: No known prehospitalization pain syndromes. Current sources of discomfort might include orotracheal and orogastric intubations; vascular access lines; restraints; Alexandre catheter; chest tubes; prolonged bedbound status. (2) Dyspnea 0-10 Scale: Unable to quantify Comment: Patient with underlying pneumonia and bilateral pneumothoraces. Dyspnea currently managed with ventilatory support. (3) Encephalopathy 0-10 Scale: Unable to quantify Pertinent Non-Medical Issues Psychosocial: Has a male partner . She normally lives with him in a manufactured home. He is a smoker. Her 2 daughters are now down from [place] to help. Spiritual: Patient is [employer] church. [employer] Host visits would be appreciated. Legal: There are no advance directives. Without written designation of a healthcare surrogate, proxy decision making would fall to both adult daughters. Ethical issues impacting care: Patient is currently incapacitated to make her own medical decisions. It is unclear if/when she will become capacitated to do so. . Important Contacts Alona Caballero (daughter and co-health care proxy) [phone] Zenobia Clay (daughter and co-health care proxy) [phone] Brett Mackay (boyfriend -- NO DECISION MAKING RIGHTS unless there is written documentation saying otherwise) [phone] . Prognosis On the one hand, other than her morbid obesity, this patient has very few health problems and has managed to stay out of the hospital. Ordinarily, we would expect her to respond well to treatment and improve.. This patient declined incredibly quickly and has very severe respiratory disease in spite of the fact that she has no known underlying chronic respiratory illness.She has multiple pneumothoraces. She has developed Enterobacter pneumonia on top of her MRSA pneumonia. She has had persistent elevated WBCs and bandemia. It remains unclear if she will pull through this. It is becoming more apparent that she might require tracheostomy if ongoing aggressive care is desired. Given her relatively good healthcare condition just days before the onset of this illness, she certainly deserves a decent trial of aggressive care. . . Code Status: Alternative Code (Per discussion with two daughters on 02/11/18) Plan == Code Status: ALT CODE (no shock; no chest compression) -- per discussion with both daughters on 02/13/18 == Medical Decision Making: Patient is currently incapacitated to make her own healthcare decisions. It is unclear if/when she will recover capacity to do so. Since there is no written designation of healthcare surrogacy that we are aware of, proxy decision making would fall to her 2 adult children -- Alona Caballero and Zenobia Clay. They both have accepted this role. == Goals of medical treatment: Aggressive management short of no chest compressions or defibrillation. Patient's daughters wishing to allow a few more days for clinical improvement. Pulmonology Dr. Pride recommending holding trach /PEG discussion until early next week and continue current attempts at medical extubation. Both daughters in agreement with this plan. Tracheostomy/PEG vs comfort-directed care to be readdressed this incoming Sunday02/18/18. Daughters made aware that patient remains at high risk for further complications , continued decline and . == Symptoms: * Pain: No known pre-hospitalization pain syndromes. Current sources of discomfort might include orotracheal and orogastric intubations; vascular access lines; restraints; Alexandre catheter; chest tubes; prolonged bedbound status. Currently on fentanyl/midazolam. No further recommendations at this time. * Dyspnea: Patient with underlying pneumonia and bilateral pneumothoraces. Dyspnea currently managed with ventilatory support. Bilateral chest tubes in place. * Encephalopathy: Patient is currently sedated but underlying encephalopathy probably secondary to her sepsis. Of propofol and Versed since yesterday, no neurological improvement noted. == Case discussed with Dr. Pride, Dr. Esteban and bedside RN Osvaldo. == Palliative care will continue to follow to assist with symptom management and to further clarify goals of medical treatment as the clinical course evolves. . Time Spent Total Floor Time (mins): 34 (Total time to include review of medical records, physical exam, goals of care conversation with patient's daughters, case discussion with pulmonology and bedside RN.) >50% Counseling/Coord of Care: Yes Attestation To help prompt me to consider important information that might be impacting today's encounter and assessment, information from prior notes written by myself or my colleagues may have been "brought forward" into today's note. My signature on this note, however, is an attestation that I personally performed the exam, history, and/or decision-making noted today, and, unless otherwise indicated, the interactions with patient, family, and staff as well as the review of records all occurred today. I also attest that the listed assessment and stated plan reflect my best clinical judgment today based on the combination of historical information, prior notes, and today's exam/ interactions. When time spent is documented, it refers only to time spent today by the signer, or if indicated, combined time spent today by collaborating physician/nurse practitioner. Myra Delatorre Feb 14, 2018 14:25
[2018-02-14] MEDS: BUMETANIDE INJ 100 ML IV SCH (15:00)
[2018-02-14] MEDS: cefTRIAXone INJ 2,000 MG in SODIUM CHLORIDE 0.9% INJ 100 ML IV SCH (16:32)
[2018-02-14] MEDS: fentaNYL 2,500 MCG/NS 250 ML IV PRN (18:17)
--- NOTE | 2018-02-14 19:42 | HHI.PR ---
Subjective Remarks 62 YO Female with VDRF,PTx, 4 Chest tubes 2 chest tubes have airleak Sedated with Fentanyl On Vent CT chest loculated fluid collection not being drained by exising chest tubes Sig decreased SQ Emphysema Does't tolerate PSV Objective Vital Signs Vital Signs Date Time Temp Pulse Resp B/P (MAP) Pulse Ox O2 Delivery O2 Flow Rate FiO2 02/14/18 18:00 108 02/14/18 16:00 45 02/14/18 16:00 113 02/14/18 16:00 98.9 113 34 167/79 (108) 92 02/14/18 15:17 95 45 02/14/18 14:00 104 02/14/18 12:00 98.4 104 31 167/78 (107) 94 02/14/18 12:00 40 02/14/18 12:00 104 02/14/18 10:28 90 45 02/14/18 10:00 101 02/14/18 08:00 40 02/14/18 08:00 99 02/14/18 08:00 97.8 99 33 170/78 (108) 92 02/14/18 07:44 92 45 02/14/18 06:32 100 45 02/14/18 06:00 97 02/14/18 04:42 100 55 02/14/18 04:00 96 02/14/18 04:00 98.0 96 16 150/72 (98) 98 02/14/18 04:00 40 02/14/18 03:32 96 65 02/14/18 02:00 92 02/14/18 00:00 40 02/14/18 00:00 98.0 93 16 134/63 (86) 98 02/14/18 00:00 93 02/13/18 23:33 100 65 02/13/18 22:00 91 02/13/18 20:22 100 85 02/13/18 20:00 98.0 93 23 147/71 (96) 100 02/13/18 20:00 93 02/13/18 20:00 40 I/O 02/13/18 02/13/18 02/13/18 02/14/18 02/14/18 02/14/18 07:00 15:00 23:00 07:00 15:00 23:00 Intake Total 1580 ml 1700 ml 1310 ml 300 ml 660 ml Output Total 1210 ml 2250 ml 2300 ml 6050 ml Balance 370 ml -550 ml -990 ml 300 ml -5390 ml IV Total 900 ml 850 ml 500 ml 300 ml 100 ml Tube Feeding 620 ml 800 ml 750 ml 480 ml Other 60 ml 50 ml 60 ml 80 ml Output Urine Total 1200 ml 2250 ml 2300 ml 6050 ml Chest Tube Drainage Total 10 ml 0 ml 0 ml # Bowel Movements 0 1 1 2 Result Diagram: 02/14/18 0600 02/14/18 1633 Objective Remarks GENERAL: WBWN Female, on Vent, sedated SKIN: Warm and dry. HEAD: Normocephalic. EYES: No scleral icterus. No injection or drainage. NECK: Supple, trachea midline. No JVD or lymphadenopathy. CARDIOVASCULAR: Regular rate and rhythm without murmurs, gallops, or rubs. RESPIRATORY: Breath sounds equal bilaterally. No accessory muscle use. [address] SQ Emphysema. GASTROINTESTINAL: Abdomen soft, non-tender, nondistended. MUSCULOSKELETAL: No cyanosis, or edema. BACK: Nontender without obvious deformity. No CVA tenderness. A/P Assessment and Plan VDRF Post Influenza Pn MRSA PTX PLAN: Cont Vent support Cont Abx TF Sedation with Diprivan, Versed and Fentanyl. Chest tubes to suction. Will need trach in few days if not able to wean. Dru Pride MD Feb 14, 2018 19:42
[2018-02-14] MEDS: RESP: ALBUTEROL 2.5 MG/IPRATROPIUM 0.5 MG NEB (PRN) INH (19:54)
[2018-02-15] VITALS (24 sets, daily range): BP systolic 137–172; BP diastolic 64–77; PULSE 92–109; RESP 18–27; TEMP 98.7–100.1; O2SAT 90–99
[2018-02-15] MEDS: CHLORHEXIDINE GLUCONATE 2 % 1 PACK (2 CLOTHS) TOP SCH (04:00)
[2018-02-15 04:15] LABS: AUTOMATED NEUTROPHIL # 15.2 TH/MM3 (1.8-7.7); BASOPHIL % 0.2 % (0.0-2.0); EOSINOPHIL # 0.1 TH/MM3 (0-0.4); EOSINOPHIL % 0.8 % (0.0-4.0); HEMATOCRIT 24.7 % (35.0-46.0); HEMOGLOBIN 8.2 GM/DL (11.6-15.3); LYMPH % 6.5 % (9.0-44.0); LYMPHOCYTE # 1.1 TH/MM3 (1.0-4.8); MEAN CELL VOLUME 83.6 FL (80.0-100.0); MEAN CORPUSCULAR HEMOGLOBIN 27.6 PG (27.0-34.0); MEAN PLATELET VOLUME 7.8 FL (7.0-11.0); MONO % 4.1 % (0.0-8.0); MONOCYTE # 0.7 TH/MM3 (0-0.9); NEUT % 88.4 % (16.0-70.0); PLATELET COUNT 668 TH/MM3 (150-450); RED BLOOD COUNT 2.96 MIL/MM3 (4.00-5.30); RED CELL DISTRIBUTION WIDTH 15.7 % (11.6-17.2); WHITE BLOOD COUNT 17.2 TH/MM3 (4.0-11.0)
[2018-02-15 04:42] LABS: ALBUMIN 0.9 GM/DL (3.4-5.0); ALKALINE PHOSPHATASE 461 U/L (45-117); ALT (GPT) 68 U/L (10-53); AST (GOT) 67 U/L (15-37); BICARBONATE 39.4 MEQ/L (21.0-32.0); BLOOD UREA NITROGEN 11 MG/DL (7-18); CALCIUM 8.2 MG/DL (8.5-10.1); CHLORIDE 92 MEQ/L (98-107); CREATININE 0.68 MG/DL (0.50-1.00); GLOMERULAR FILTRATION RATE 88 ML/MIN (>89); GLUCOSE,RANDOM 230 MG/DL (74-106); MAGNESIUM 1.8 MG/DL (1.5-2.5); PHOSPHORUS 3.6 MG/DL (2.5-4.9); SODIUM (NA) 138 MEQ/L (136-145); TOTAL BILIRUBIN ADULT 0.4 MG/DL (0.2-1.0); TOTAL PROTEIN 6.9 GM/DL (6.4-8.2)
[2018-02-15] MEDS: fentaNYL 2,500 MCG/NS 250 ML IV PRN ×2 (05:43→19:01)
[2018-02-15] MEDS: DILTIAZEM HCL 30 MG TAB PO SCH ×4 (05:43→22:18)
[2018-02-15] MEDS: HEPARIN SODIUM - SQ 10,000 UNITS/ML VIAL SQ SCH ×3 (05:44→22:18)
[2018-02-15] MEDS: INSULIN ASPART SUPPLEMENTAL SCALE SQ SCH ×3 (05:46→18:00)
[2018-02-15] MEDS: POTASSIUM CHLOR 40 MEQ PREMIX 100 ML IV PRN ×2 (06:47→09:11)
[2018-02-15] MEDS: FAMOTIDINE 20 MG TAB PO SCH ×2 (09:10→22:17)
[2018-02-15] MEDS: SODIUM CHLORIDE 0.9% FLUSH 10 ML FLUSH IV FLUSH SCH ×2 (09:10→22:17)
[2018-02-15] MEDS: DOCUSATE SODIUM 50 MG/SENNA 8.6 MG TAB PO SCH ×2 (09:10→21:00)
[2018-02-15] MEDS: CHLORHEXIDINE 0.12% (ORAL KIT) 15 ML CUP MT SCH ×2 (09:10→22:17)
[2018-02-15] MEDS: ASPIRIN 81 MG CHEW TAB CHEW SCH (09:10)
--- NOTE | 2018-02-15 12:27 | HHI.HCPN ---
Reason for visit a. To assist with evaluation and management of symptoms including: dyspnea; encephalopathy, pain b. To assist medical decision maker(s) with: better understanding of current medical conditions; weighing benefits/burdens of medical treatment options; making medical treatment decisions. . Subjective/Interval History Palliative care follow-up for further clarifications of goals of care, emotional support. Patient seen and medical ICU. She remains endotracheally intubated on mechanical ventilation. Off propofol and Versed since yesterday, currently on fentanyl drip. Patient with increased oxygen requirement. Currently 60% FiO2 since last night, not tolerating CPAP trials. Good urinary output on Bumex drip. Patient with eyes open, intermittently tracking. Daughters report that she has been intermittently answering to yes/no questions by nodding her head. Laboratory workup today revealing persistent leukocytosis 17.2, Hgb stable at 8.2. Chest x-ray yesterday revealing bilateral airspace disease. Met with patient's daughters at bedside. Shared concerns of patient's clinical condition to include increased oxygen requirement, not likely to medically extubate given severity of pulmonary disease to include necrotizing pneumonia, ventilator dependent respiratory failure, pneumothoraces requiring chest tubes. Daughters report that after further discussion with family, they have agreed to proceed with tracheostomy and PEG tube. They verbalized understanding that patient will require prolonged hospitalization and that she remains at a very high risk of further complications, continued decline and . Case discussed with Dr. Esteban who was notified of tracheostomy and PEG tube decision. Case discussed with bedside RN Akiko. . Family/friend interactions See interval note. . Advance Directives Living Will: Never completed Health Care Surrogate: Never completed Durable Power of Director Design: Never completed Advance Directive Specifics Date completed: Patient has never completed an advanced directive. . Health Care Surrogate(s): There is no written designation of healthcare surrogate. . Documented care wishes: There is no written documentation of healthcare goals/preferences. . Significant change in goals: Family electing to proceed with tracheostomy and PEG tube placement. . Objective Vital Signs Date Time Temp Pulse Resp B/P (MAP) Pulse Ox O2 Delivery O2 Flow Rate FiO2 02/15/18 11:09 94 60 02/15/18 11:00 100 02/15/18 10:00 101 02/15/18 09:00 108 02/15/18 08:00 103 02/15/18 08:00 100.1 103 18 146/64 (91) 94 02/15/18 08:00 60 02/15/18 07:32 93 60 02/15/18 07:00 109 02/15/18 06:00 102 02/15/18 04:05 95 60 02/15/18 04:00 98.7 104 22 164/75 (104) 99 02/15/18 04:00 104 02/15/18 04:00 60 02/15/18 02:00 102 02/15/18 00:09 94 60 02/15/18 00:00 98.8 102 22 137/64 (88) 92 02/15/18 00:00 102 02/15/18 00:00 60 02/14/18 22:00 104 02/14/18 20:00 98.8 104 22 129/63 (85) 93 02/14/18 20:00 104 02/14/18 20:00 60 02/14/18 19:50 94 60 02/14/18 18:00 108 02/14/18 16:00 45 02/14/18 16:00 113 02/14/18 16:00 98.9 113 34 167/79 (108) 92 02/14/18 15:17 95 45 02/14/18 14:00 104 Intake & Output 02/15/18 02/15/18 07:00 19:00 Intake Total 1308 ml Output Total 2450 ml Balance -1142 ml IV Total 627 ml Tube Feeding 621 ml Other 60 ml Output Urine Total 2450 ml Chest Tube Drainage Total 0 ml # Bowel Movements 1 Physical Exam CONSTITUTIONAL/GENERAL: This is an obese patient in the medical intensive care unit bed. No apparent distress. TUBES/LINES/DRAINS: Orotracheal tube; orogastric tube; right subclavian central line; bilateral chest tubes x2; peripheral IV; soft wrist restraints; sequential compressive devices. SKIN: No jaundice, rashes. Ecchymoses on upper extremities. No wounds seen anteriorly. Skin temperature appropriate. Not diaphoretic. EYES: Pupils equal and round. Unable to evaluate extraocular movements. Bilateral periorbital edema. No scleral icterus. No injection or drainage. ENT: Unable to evaluate hearing. Nose without bleeding or purulent drainage. Moist oral mucosa. NECK: Neck somewhat difficult to examine due to obesity and SQ emphysema. Trachea midline. CARDIOVASCULAR: Regular rate/rhythm without murmurs, gallops, or rubs. RESPIRATORY/CHEST: Bilateral chest tubes. Symmetric respirations on vent. Decreased air movement at bases. Scattered rhonchi bilaterally. GASTROINTESTINAL: Abdomen obese, large, soft. Active bowel sounds. GENITOURINARY: Without palpable bladder distension. Alexandre catheter in place. MUSCULOSKELETAL: Extremities without clubbing, cyanosis. Widespread edema vs SQ emphysema. No mottling. NEUROLOGICAL: Eyes open. Intermittently tracking. PSYCHIATRIC: Somewhat restless. . Diagnostic Tests Laboratory Laboratory Tests Test 02/12/18 16:45 02/12/18 20:29 02/13/18 06:10 02/13/18 16:05 Vancomycin Level Trough 18.5 MCG/ML (5.0-10.0) 16.5 MCG/ML (5.0-10.0) Potassium Level 3.7 MEQ/L (3.5-5.1) 4.0 MEQ/L (3.5-5.1) White Blood Count 15.8 TH/MM3 (4.0-11.0) Red Blood Count 2.95 MIL/MM3 (4.00-5.30) Hemoglobin 8.2 GM/DL (11.6-15.3) Hematocrit 24.8 % (35.0-46.0) Mean Corpuscular Volume 83.9 FL (80.0-100.0) Mean Corpuscular Hemoglobin 27.7 PG (27.0-34.0) Mean Corpuscular Hemoglobin Concent 33.0 % (32.0-36.0) Red Cell Distribution Width 15.8 % (11.6-17.2) Platelet Count 711 TH/MM3 (150-450) Mean Platelet Volume 8.1 FL (7.0-11.0) Neutrophils (%) (Auto) 88.4 % (16.0-70.0) Lymphocytes (%) (Auto) 6.3 % (9.0-44.0) Monocytes (%) (Auto) 3.8 % (0.0-8.0) Eosinophils (%) (Auto) 1.1 % (0.0-4.0) Basophils (%) (Auto) 0.4 % (0.0-2.0) Neutrophils # (Auto) 14.0 TH/MM3 (1.8-7.7) Lymphocytes # (Auto) 1.0 TH/MM3 (1.0-4.8) Monocytes # (Auto) 0.6 TH/MM3 (0-0.9) Eosinophils # (Auto) 0.2 TH/MM3 (0-0.4) Basophils # (Auto) 0.1 TH/MM3 (0-0.2) CBC Comment DIFF FINAL Differential Comment Blood Urea Nitrogen 17 MG/DL (7-18) Creatinine 0.62 MG/DL (0.50-1.00) Random Glucose 171 MG/DL (74-106) Total Protein 6.6 GM/DL (6.4-8.2) Albumin 0.9 GM/DL (3.4-5.0) Calcium Level 8.1 MG/DL (8.5-10.1) Alkaline Phosphatase 357 U/L (45-117) Aspartate Amino Transf (AST/SGOT) 39 U/L (15-37) Alanine Aminotransferase (ALT/SGPT) 57 U/L (10-53) Total Bilirubin 0.5 MG/DL (0.2-1.0) Sodium Level 141 MEQ/L (136-145) Chloride Level 103 MEQ/L (98-107) Carbon Dioxide Level 30.8 MEQ/L (21.0-32.0) Anion Gap 7 MEQ/L (5-15) Estimat Glomerular Filtration Rate 98 ML/MIN (>89) Test 02/13/18 19:45 02/14/18 06:00 02/14/18 16:33 02/15/18 03:40 Potassium Level 3.7 MEQ/L (3.5-5.1) 3.4 MEQ/L (3.5-5.1) 3.6 MEQ/L (3.5-5.1) 3.0 MEQ/L (3.5-5.1) White Blood Count 15.7 TH/MM3 (4.0-11.0) 17.2 TH/MM3 (4.0-11.0) Red Blood Count 3.02 MIL/MM3 (4.00-5.30) 2.96 MIL/MM3 (4.00-5.30) Hemoglobin 8.2 GM/DL (11.6-15.3) 8.2 GM/DL (11.6-15.3) Hematocrit 25.6 % (35.0-46.0) 24.7 % (35.0-46.0) Mean Corpuscular Volume 84.8 FL (80.0-100.0) 83.6 FL (80.0-100.0) Mean Corpuscular Hemoglobin 27.1 PG (27.0-34.0) 27.6 PG (27.0-34.0) Mean Corpuscular Hemoglobin Concent 32.0 % (32.0-36.0) 33.0 % (32.0-36.0) Red Cell Distribution Width 15.9 % (11.6-17.2) 15.7 % (11.6-17.2) Platelet Count 684 TH/MM3 (150-450) 668 TH/MM3 (150-450) Mean Platelet Volume 7.8 FL (7.0-11.0) 7.8 FL (7.0-11.0) Neutrophils (%) (Auto) 88.1 % (16.0-70.0) 88.4 % (16.0-70.0) Lymphocytes (%) (Auto) 7.5 % (9.0-44.0) 6.5 % (9.0-44.0) Monocytes (%) (Auto) 3.0 % (0.0-8.0) 4.1 % (0.0-8.0) Eosinophils (%) (Auto) 1.2 % (0.0-4.0) 0.8 % (0.0-4.0) Basophils (%) (Auto) 0.2 % (0.0-2.0) 0.2 % (0.0-2.0) Neutrophils # (Auto) 13.8 TH/MM3 (1.8-7.7) 15.2 TH/MM3 (1.8-7.7) Lymphocytes # (Auto) 1.2 TH/MM3 (1.0-4.8) 1.1 TH/MM3 (1.0-4.8) Monocytes # (Auto) 0.5 TH/MM3 (0-0.9) 0.7 TH/MM3 (0-0.9) Eosinophils # (Auto) 0.2 TH/MM3 (0-0.4) 0.1 TH/MM3 (0-0.4) Basophils # (Auto) 0.0 TH/MM3 (0-0.2) 0.0 TH/MM3 (0-0.2) CBC Comment DIFF FINAL DIFF FINAL Differential Comment Blood Urea Nitrogen 14 MG/DL (7-18) 11 MG/DL (7-18) Creatinine 0.58 MG/DL (0.50-1.00) 0.68 MG/DL (0.50-1.00) Random Glucose 174 MG/DL (74-106) 230 MG/DL (74-106) Calcium Level 8.3 MG/DL (8.5-10.1) 8.2 MG/DL (8.5-10.1) Magnesium Level 2.0 MG/DL (1.5-2.5) 1.8 MG/DL (1.5-2.5) Sodium Level 140 MEQ/L (136-145) 138 MEQ/L (136-145) Chloride Level 100 MEQ/L (98-107) 92 MEQ/L (98-107) Carbon Dioxide Level 34.1 MEQ/L (21.0-32.0) 39.4 MEQ/L (21.0-32.0) Anion Gap 6 MEQ/L (5-15) 7 MEQ/L (5-15) Estimat Glomerular Filtration Rate 105 ML/MIN (>89) 88 ML/MIN (>89) Total Protein 6.9 GM/DL (6.4-8.2) Albumin 0.9 GM/DL (3.4-5.0) Phosphorus Level 3.6 MG/DL (2.5-4.9) Alkaline Phosphatase 461 U/L (45-117) Aspartate Amino Transf (AST/SGOT) 67 U/L (15-37) Alanine Aminotransferase (ALT/SGPT) 68 U/L (10-53) Total Bilirubin 0.4 MG/DL (0.2-1.0) Result Diagram: 02/15/18 0340 02/15/18 034 Procedures * Intubation/mechanical ventilation right subclavian * Central line placement * Bilateral chest tube placement * Transesophageal echo . Assessment and Plan Disease Oriented Problem List: (1) PNA (pneumonia) Comment: MRSA + Enterobacter (2) Respiratory failure (3) ARDS (adult respiratory distress syndrome) (4) Sepsis Comment: MRSA (5) Anemia (6) Hypoalbuminemia (7) Bilateral pneumothoraces Comment: Recurrent and multiple pneumothoraces . (8) ARF (acute renal failure) Comment: REsolving (9) Encephalopathy Symptom Scale: (1) Pain 0-10 Scale: Unable to quantify Comment: No known prehospitalization pain syndromes. Current sources of discomfort might include orotracheal and orogastric intubations; vascular access lines; restraints; Alexandre catheter; chest tubes; prolonged bedbound status. (2) Dyspnea 0-10 Scale: Unable to quantify Comment: Patient with underlying pneumonia and bilateral pneumothoraces. Dyspnea currently managed with ventilatory support. (3) Encephalopathy 0-10 Scale: Unable to quantify Pertinent Non-Medical Issues Psychosocial: Has a male partner . She normally lives with him in a manufactured home. He is a smoker. Her 2 daughters are now down from [place] to help. Spiritual: Patient is mandaeism sikhism. Preventive Maintenance Coordinator visits would be appreciated. Legal: There are no advance directives. Without written designation of a healthcare surrogate, proxy decision making would fall to both adult daughters. Ethical issues impacting care: Patient is currently incapacitated to make her own medical decisions. It is unclear if/when she will become capacitated to do so. . Important Contacts Alona Caballero (daughter and co-health care proxy) [phone] eZnobia Clay (daughter and co-health care proxy) [phone] Brett Fayeiff (boyfriend -- NO DECISION MAKING RIGHTS unless there is written documentation saying otherwise) [phone] . Prognosis On the one hand, other than her morbid obesity, this patient has very few health problems and has managed to stay out of the hospital. Ordinarily, we would expect her to respond well to treatment and improve.. This patient declined incredibly quickly and has very severe respiratory disease in spite of the fact that she has no known underlying chronic respiratory illness.She has multiple pneumothoraces. She has developed Enterobacter pneumonia on top of her MRSA pneumonia. She has had persistent elevated WBCs and bandemia. It remains unclear if she will pull through this. It is becoming more apparent that she might require tracheostomy if ongoing aggressive care is desired. Given her relatively good healthcare condition just days before the onset of this illness, she certainly deserves a decent trial of aggressive care. . . Code Status: Alternative Code (Per discussion with two daughters on 02/11/18) Plan == Code Status: ALT CODE (no shock; no chest compression) == Medical Decision Making: Patient is currently incapacitated to make her own healthcare decisions. It is unclear if/when she will recover capacity to do so. Since there is no written designation of healthcare surrogacy that we are aware of, proxy decision making would fall to her 2 adult children -- Alona Caballero and Zenobia Clay. They both have accepted this role. == Goals of medical treatment: 02/15/18=Aggressive management short of no chest compressions or defibrillation. Patient's daughters acting as healthcare proxy decision makers have elected to proceed with tracheostomy and PEG tube placement. Daughters verbalized understanding that patient will require prolonged hospitalization/rehab, potentially ventilator dependent and that she remains at a very high risk of further complications, continued decline and . == Symptoms: * Pain: No known pre-hospitalization pain syndromes. Current sources of discomfort might include orotracheal and orogastric intubations; vascular access lines; restraints; Alexandre catheter; chest tubes; prolonged bedbound status. Currently on fentanyl. No further recommendations at this time. * Dyspnea: Patient with underlying pneumonia and bilateral pneumothoraces. Dyspnea currently managed with ventilatory support. Bilateral chest tubes in place. Patient not tolerating weaning trials, pending tracheostomy as per family's request. * Encephalopathy: Patient is currently sedated but underlying encephalopathy probably secondary to her sepsis. Off propofol and Versed for over 24h, minor neurological improvement noted. == Case discussed with Dr. Esteban and bedside RN Akiko. == Palliative care will continue to follow to assist with symptom management and to further clarify goals of medical treatment as the clinical course evolves. . Time Spent Total Floor Time (mins): 42 (Total time to include review and summarization of available medical records, physical exam, goals of care conversation with patient's family, case discussion with attending and bedside RN.) >50% Counseling/Coord of Care: Yes Attestation To help prompt me to consider important information that might be impacting today's encounter and assessment, information from prior notes written by myself or my colleagues may have been "brought forward" into today's note. My signature on this note, however, is an attestation that I personally performed the exam, history, and/or decision-making noted today, and, unless otherwise indicated, the interactions with patient, family, and staff as well as the review of records all occurred today. I also attest that the listed assessment and stated plan reflect my best clinical judgment today based on the combination of historical information, prior notes, and today's exam/ interactions. When time spent is documented, it refers only to time spent today by the signer, or if indicated, combined time spent today by collaborating physician/nurse practitioner. Myra Delatorre Feb 15, 2018 12:27
--- NOTE | 2018-02-15 12:28 | HHI.CCPN ---
Subjective Remarks/Hospital Course 01/30: 62-year-old female presents for evaluation of increasing shortness of breath and chest pain. She reports 1 week of coughing 3 days of pain in her left chest which radiates to her back, which prompted the visit to the emergency room yesterday. She rates her pain a 6 out of 10. She reports fevers , chills, fatigue, mild nausea. She denies any abdominal pain, vomiting. Patient denies any significant past medical history. Symptom onset was gradual , symptom severity is severe, there are no alleviating factors. Patient states that she has been taking the azithromycin antibiotics that were prescribed to her. She denies any current or historical tobacco use. 01/31: Intubated at 1 AM this morning and placed on mechanical ventilation due to worsening respiratory distress. Currently sedated, orally intubated on mechanical ventilation. 02/01: Remains sedated, orally intubated on mechanical ventilation. Went into A. fib with RVR this morning. Loaded with amiodarone, started on amiodarone drip and given digoxin 0.5 mg IV 02/02: Remains sedated, orally intubated on mechanical ventilation. Right sided pigtail catheter in place with 1+ air leak. Converted to sinus rhythm overnight. Remains on amiodarone gtt. 02/03: Remains sedated, orally intubated on mechanical ventilation. 1+ air leak and right sided pigtail catheter. Tolerating tube feeds. Remains on amiodarone gtt. 02/04: Noted to have pneumothorax on the left side this morning on routine chest x -ray which appeared to be under tension. Right sided pigtail catheter placed by Dr. Peña with reexpansion of lung. Patient remains sedated, orally intubated on mechanical ventilation. 1+ airleak and bilateral chest tubes noted. 02/05: Afebrile. Persistent leukocytosis, bilateral chest tubes continue on wall suction. Chest x-ray pending this a.m.. Patient scheduled for GRANT today, discussed with Dr. Vázquez. Patient continues on amiodarone infusion with sinus rhythm. Postprocedure GRANT,this afternoon, the patient became extremely agitated, noted significant increase in subcu emphysema, peak pressures 50's, O2 saturation significantly decreased to 78-80 %. Stat chest x-ray performed patient was noted to have a significant right pneumothorax. 20 Angolan right chest tube placement emergently, with increase in O2 saturation decrease in peak inspiratory pressures. 02/06: Afebrile. Patient with persistent bilateral pneumothoraces, with diffuse bilateral infiltrates and massive SQ emphysema. O2 requirement significantly increased during the night, PIP 38-44. 28 F chest tubes were placed bilaterally with resolution of left pneumothorax and minimization of right pneumothorax, and improved oxygenation. 02/07: TMax 100.1 Chest tubes remain on suction. Resolution of pneumothoraces, continued extensive SQ emphysema. Persistent leukocytosis noted. FiO2 weaned to 50%. 02/08: Late entry note patient seen at 1250. Attempts at CPAP trials, unsuccessful this morning. FiO2 decreased 50%, with adequate oxygenation. 02/09: Afebrile. The patient was transitioned to CPAP trials with pressure support of 22/8. FiO2 currently at 55% continuing to wean. Patient noted with positive fluid balance Lasix 40 mg IV now, patient is initiated on Lasix 40 daily. Patient with positive air leak in chest tubes #1-28 Angolan right and #3 pigtail left, both at 2+. Sedation vacation initiated early this a.m. patient neurologically intact. Patient continues on moderate sedation for CPAP to maintain ventilator synchrony plan for transitioning to Precedex. Noted improvement with subcu emphysema. Extensive discussion with patient's daughter regarding a possibility of a tracheostomy if unsuccessful with ventilator weaning process. 02/10: Subcutaneous emphysema has worsened overnight per RN who took care of the patient yesterday, now extending to the upper chest left neck and to the left side of the face including left eyelids. No increase in FiO2 requirement currently on 55%. I have reduced inspiratory pressure from 32 to 28. FiO2 reduced to 50%. Will check a repeat chest x-ray in afternoon if needed. Will request CT surgical evaluation for persistent subcutaneous emphysema despite 2 chest tubes bilaterally 02/11 Patient is sedated with Diprivan, Versed and Fentanyl drips. T: 101.[address] guided chest tube placement by IR today 02/12 No events overnight. Remains sedated and intubated. Afebrile. On PC/AC with PEEP: 8 and FIO2 40%. 02/13 Patient remains intubated and heavily sedated. Afebrile. Repeat CT chest yesterday showed loculated anterior left pneumothorax has resolved. A small left pleural effusion remains present and the 2 left chest tubes appear to be in good position to drain the fluid. Significant improvement in the bilateral chest wall subcutaneous emphysema. 02/14 Patient remains sedated and intubated. Afebrile. On Bumex drip 0.5mg/hr. 02/15 Patient remains intubated and sedated, On Bumex drip 0.5mg/hr with good urine output. T:100.1 Objective Vital Signs Date Time Temp Pulse Resp B/P (MAP) Pulse Ox O2 Delivery O2 Flow Rate FiO2 02/15/18 11:09 94 60 02/15/18 11:00 100 02/15/18 08:00 100.1 18 146/64 (91) Intake and Output 02/15/18 02/15/18 02/16/18 08:00 16:00 00:00 Intake Total 1308 ml Output Total 2450 ml Balance -1142 ml Result Diagram: 02/15/18 0340 02/15/18 0340 Other Results Laboratory Tests Test 02/14/18 16:33 02/15/18 03:40 Potassium Level 3.6 MEQ/L 3.0 MEQ/L White Blood Count 17.2 TH/MM3 Red Blood Count 2.96 MIL/MM3 Hemoglobin 8.2 GM/DL Hematocrit 24.7 % Mean Corpuscular Volume 83.6 FL Mean Corpuscular Hemoglobin 27.6 PG Mean Corpuscular Hemoglobin Concent 33.0 % Red Cell Distribution Width 15.7 % Platelet Count 668 TH/MM3 Mean Platelet Volume 7.8 FL Neutrophils (%) (Auto) 88.4 % Lymphocytes (%) (Auto) 6.5 % Monocytes (%) (Auto) 4.1 % Eosinophils (%) (Auto) 0.8 % Basophils (%) (Auto) 0.2 % Neutrophils # (Auto) 15.2 TH/MM3 Lymphocytes # (Auto) 1.1 TH/MM3 Monocytes # (Auto) 0.7 TH/MM3 Eosinophils # (Auto) 0.1 TH/MM3 Basophils # (Auto) 0.0 TH/MM3 CBC Comment DIFF FINAL Differential Comment Blood Urea Nitrogen 11 MG/DL Creatinine 0.68 MG/DL Random Glucose 230 MG/DL Total Protein 6.9 GM/DL Albumin 0.9 GM/DL Calcium Level 8.2 MG/DL Phosphorus Level 3.6 MG/DL Magnesium Level 1.8 MG/DL Alkaline Phosphatase 461 U/L Aspartate Amino Transf (AST/SGOT) 67 U/L Alanine Aminotransferase (ALT/SGPT) 68 U/L Total Bilirubin 0.4 MG/DL Sodium Level 138 MEQ/L Chloride Level 92 MEQ/L Carbon Dioxide Level 39.4 MEQ/L Anion Gap 7 MEQ/L Estimat Glomerular Filtration Rate 88 ML/MIN Imaging Last Impressions Chest X-Ray 02/14/18 0000 Signed Impressions: Service Date/Time: February 03:19 - CONCLUSION: Bilateral chest tubes without pneumothorax. Bilateral airspace disease. Karri Muhammad MD Chest CT 02/12/18 1334 Signed Impressions: Service Date/Time: Monday, February 12, 2018 14:07 - CONCLUSION: 1. The loculated anterior left pneumothorax has resolved. A small left pleural effusion remains present and the 2 left chest tubes appear to be in good position to drain the fluid. 2. Significant improvement in the bilateral chest wall subcutaneous emphysema. 3. Stable severe kinking of the large bore right chest tube. This chest tube also extends into the fissure. Given these 2 findings, this likely not providing any significant suction. Consider removal. 4. Stable severe bilateral airspace consolidation with multifocal areas of cavitation. Michael Perea MD Liver Ultrasound 02/11/18 0000 Signed Impressions: Service Date/Time: Sunday, February 11, 2018 09:34 - CONCLUSION: Nondiagnostic examination CT scan is recommended for further evaluation if clinically indicated. To Vaughn MD Neck CT 02/10/18 0000 Signed Impressions: Service Date/Time: Saturday, February 10, 2018 14:57 - CONCLUSION: 1. Extensive subcutaneous edema in the neck which has dissected cephalad from the chest and is worse on the left side. 2. Support apparatus as above. See chest CT report for evaluation of lungs. 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 No adenopathy. Everett Ng MD Procedures 02/05- Right emergent 20 F chest tube placement 02/06: Left 28 Angolan chest tube placement, right chest tube replacement 28 Angolan Objective Remarks HEENT/ Neuro: Sedated, orally intubated, Pallor present, no icterus, tongue/ mucosa moist significant SQ emphysema. Left side of the face eyelid has significant subcu emphysema Neck: No JVD. Left side of the neck with significant subcutaneous emphysema [facility] air entry decreased bilaterally at bases, scattered rhonchi bilaterally. Bilateral pigtail catheters insitu., and 28F chest tubes bilaterally to -40cm H20. CVS: S1-S2 regular, no murmur GI/abdomen: soft, nontender, bowel sounds hypoactive Neuro: RASS -2, currently on fentanyl, propofol and Versed infusions. Patient moving extremities 4 Extremities: warm bilaterally, 1+bilateral peripheral edema upper and lower extremities A/P Assessment and Plan Neuro: Neuro checks per ICU protocol propofol and fentanyl to maintain ventilator synchrony. Daily sedation vacation Pulm: Acute hypoxemic respiratory failure MRSA pneumonia MRSA bacteremia COPD Persistent bilateral pneumothorax, significant subcutaneous emphysema Post Influenza pneumonia? Continue vent support keep sats >92%, will need trach once more stable Change vent PRVC RR 16, TV 500, IT:1.0, PEEP:8, FIO2: 50%. Check ABG DuoNeb scheduled and when necessary SBT daily as bernarda. Bilateral pigtail catheters and [address] in place(4 total) Repeat CT chest 02/12 The loculated anterior left pneumothorax has resolved. the 2 left chest tubes appear to be in good position to drain the fluid. Significant improvement in the bilateral chest wall subQ mphysema. Stable severe bilateral airspace consolidation with multifocal areas of cavitation. -Thoracic surgery is following- Dr. Thornton Check CXR Patient will likely need trach/PEG. She is unlikely to be medically extubated. Renal: Acute kidney injury-resolved Dehydration-resolved - Maintain Alexandre -Monitor renal function, I/O's, electrolytes replacement per protocol. Will need K replacement today. D/C Bumex drip Cardiovascular: A. fib with RVR (converted to NSR 02/02) -02/05 amiodarone infusion discontinued. - 02/05 GRANT -no valvular vegetations. EF 55-60%, trace MVR, mild TVR, PAP 35 Monitor HR and BP keep MAP>65mmHfg On Cardizem 60mg Q6, add Lopressor 25mg Q12 GI Elevated LFT;s Hepatitis profile: Negative US liver: non-diagnostic study -Tube feeds Jevity 1.5 60 cc/hr at goal,- On Pepcid 20mg BID ID: MRSA, Enterobacter pneumonia MRSA Bacteremia - Antibiotics per ID. On Zyvox. Monitor for signs of infections ( Fever, WBC) -Repeat blood cultures per ID. Bal culture/blood cultures growing MRSA. Legionella and strep pneumo antigen negative -ID- Dr. Singleton following. 02/10 Sputum: MRSA 02/10 BC: NGTD Endocrine: Hyperglycemia Medium scale sliding scale insulin dosing Glucose monitoring per ICU protocol DVT GI prophylaxis - Teds SCDs - Subcutaneous heparin - Pepcid Lines: Right subclavian central line inserted 02/01. Peripheral IVs 2 Palliative care is following Patient was made Alternative code Level 3 Lenard Qureshi MD Feb 15, 2018 12:27
--- NOTE | 2018-02-15 14:02 | RADRPT ---
EXAM DATE/TIME: 02/15/2018 12:49 [facility] COMPARISON: CHEST SINGLE AP, February 14, 2018, 3:19. INDICATIONS : Ventilator dependent resiratory failure. MEDICAL HISTORY : Sepsis. SURGICAL HISTORY : Gastric bypass. Tonsillectomy. ENCOUNTER: Initial ACUITY: 2 weeks PAIN SCORE: Non-responsive. LOCATION: Bilateral chest FINDINGS: Stable ETT, NGT, right subclavian central line and dual bilateral chest tubes. No significant pneumot horax. There is redemonstration of patchy bilateral airspace disease and likely small left pleural ef fusion. Cardiomediastinal contours are stable. Remainder of the exam is unchanged. CONCLUSION: 1. Stable dual bilateral chest tubes in place without significant pneumothorax. 2. Persistent diffuse bilateral patchy airspace disease and small left pleural effusion. Romeo Espinoza MD on February 15, 2018 at 13:50 Board Certified Radiologist. This report was verified electronically.
[2018-02-15] MEDS: METOPROLOL TARTRATE 25 MG TAB PO SCH (14:52)
[2018-02-15] MEDS: LINEZOLID 600 MG PREMIX 300 ML IV SCH (14:54)
[2018-02-15 16:42] LABS: BILIRUBIN, URINE NEG (NEG); BLOOD, URINE MOD (NEG); GLUCOSE,URINE NEG (NEG); HYALINE CAST, URINE 11 /lpf (RARE); KETONE, URINE NEG (NEG); MUCUS URINE FEW /lpf (OCC); NITRITE,URINE NEG (NEG); PH, URINE 8.5 (5.0-8.5); URINE COLOR LIGHT-YELLOW (YELLW/STRAW); URINE LEUKOCYTE ESTERASE NEG (NEG)
--- NOTE | 2018-02-15 18:30 | HHI.PR ---
Subjective Remarks 62 YO Female with VDRF,PTx, 4 Chest tubes 2 chest tubes have airleak Sedated with Fentanyl On Vent CT chest loculated fluid collection not being drained by exising chest tubes Sig decreased SQ Emphysema Does't tolerate PSV Daughters agreed for Trach and PEG Objective Vital Signs Vital Signs Date Time Temp Pulse Resp B/P (MAP) Pulse Ox O2 Delivery O2 Flow Rate FiO2 02/15/18 14:00 109 02/15/18 13:00 109 02/15/18 12:00 99.5 109 25 172/77 (108) 93 02/15/18 12:00 50 02/15/18 12:00 109 02/15/18 11:09 94 60 02/15/18 11:00 100 02/15/18 10:00 101 02/15/18 09:00 108 02/15/18 08:00 103 02/15/18 08:00 100.1 103 18 146/64 (91) 94 02/15/18 08:00 60 02/15/18 07:32 93 60 02/15/18 07:00 109 02/15/18 06:00 102 02/15/18 04:05 95 60 02/15/18 04:00 98.7 104 22 164/75 (104) 99 02/15/18 04:00 104 02/15/18 04:00 60 02/15/18 02:00 102 02/15/18 00:09 94 60 02/15/18 00:00 98.8 102 22 137/64 (88) 92 02/15/18 00:00 102 02/15/18 00:00 60 02/14/18 22:00 104 02/14/18 20:00 98.8 104 22 129/63 (85) 93 02/14/18 20:00 104 02/14/18 20:00 60 02/14/18 19:50 94 60 I/O 02/14/18 02/14/18 02/14/18 02/15/18 02/15/18 02/15/18 07:00 15:00 23:00 07:00 15:00 23:00 Intake Total 1310 ml 300 ml 660 ml 1308 ml 200 ml Output Total 2300 ml 6050 ml 2450 ml Balance -990 ml 300 ml -5390 ml -1142 ml 200 ml IV Total 500 ml 300 ml 100 ml 627 ml 200 ml Tube Feeding 750 ml 480 ml 621 ml Other 60 ml 80 ml 60 ml Output Urine Total 2300 ml 6050 ml 2450 ml Chest Tube Drainage Total 0 ml 0 ml # Bowel Movements 1 2 1 Result Diagram: 02/15/18 0340 02/15/18 034 Objective Remarks GENERAL: WBWN Female, on Vent, sedated SKIN: Warm and dry. HEAD: Normocephalic. EYES: No scleral icterus. No injection or drainage. NECK: Supple, trachea midline. No JVD or lymphadenopathy. CARDIOVASCULAR: Regular rate and rhythm without murmurs, gallops, or rubs. RESPIRATORY: Breath sounds equal bilaterally. No accessory muscle use. [address] SQ Emphysema. GASTROINTESTINAL: Abdomen soft, non-tender, nondistended. MUSCULOSKELETAL: No cyanosis, or edema. BACK: Nontender without obvious deformity. No CVA tenderness. A/P Assessment and Plan VDRF Post Influenza Pn MRSA PTX PLAN: Cont Vent support Cont Abx TF Sedation with Diprivan, Versed and Fentanyl. Chest tubes to suction. Trach and PEG scheduled for Sunday Dru Hahn MD Feb 15, 2018 18:30
[2018-02-15] MEDS: POTASSIUM CHLOR 20 MEQ PREMIX 100 ML IV PRN (22:57)
[2018-02-15] MEDS: RESP: ALBUTEROL 2.5 MG/IPRATROPIUM 0.5 MG NEB (PRN) INH (23:58)
[2018-02-16] VITALS (16 sets, daily range): BP systolic 126–181; BP diastolic 57–83; PULSE 69–93; RESP 15–38; TEMP 97.6–99.2; O2SAT 86–100
[2018-02-16] MEDS: INSULIN ASPART SUPPLEMENTAL SCALE SQ SCH ×4 (00:17→17:11)
[2018-02-16] MEDS: LABETALOL HCL 100 MG/20 ML VIAL IV PUSH PRN (00:18)
[2018-02-16] MEDS: METOPROLOL TARTRATE 25 MG TAB PO SCH ×2 (00:18→13:05)
[2018-02-16] MEDS: LINEZOLID 600 MG PREMIX 300 ML IV SCH ×2 (00:18→13:06)
[2018-02-16] MEDS: POTASSIUM CHLOR 20 MEQ PREMIX 100 ML IV PRN ×3 (00:24→04:56)
[2018-02-16] MEDS: RESP: ALBUTEROL 2.5 MG/IPRATROPIUM 0.5 MG NEB (PRN) INH ×2 (03:03→19:56)
[2018-02-16] MEDS: hydrALAZINE HCL 20 MG/ML VIAL IV PUSH PRN (03:40)
[2018-02-16] MEDS: CHLORHEXIDINE GLUCONATE 2 % 1 PACK (2 CLOTHS) TOP SCH (04:00)
[2018-02-16] MEDS: DILTIAZEM HCL 30 MG TAB PO SCH ×3 (04:54→17:09)
[2018-02-16] MEDS: HEPARIN SODIUM - SQ 10,000 UNITS/ML VIAL SQ SCH ×3 (04:55→21:14)
[2018-02-16] MEDS: fentaNYL 2,500 MCG/NS 250 ML IV PRN ×2 (06:27→17:13)
[2018-02-16] MEDS: PROPOFOL 1000 MG/100 ML IV PRN ×4 (07:39→21:15)
[2018-02-16] MEDS: DOCUSATE SODIUM 50 MG/SENNA 8.6 MG TAB PO SCH ×2 (08:38→21:00)
[2018-02-16] MEDS: FAMOTIDINE 20 MG TAB PO SCH ×2 (08:38→21:14)
[2018-02-16] MEDS: SODIUM CHLORIDE 0.9% FLUSH 10 ML FLUSH IV FLUSH SCH ×2 (08:39→21:14)
[2018-02-16] MEDS: ASPIRIN 81 MG CHEW TAB CHEW SCH (08:39)
[2018-02-16] MEDS: CHLORHEXIDINE 0.12% (ORAL KIT) 15 ML CUP MT SCH ×2 (08:41→21:13)
--- NOTE | 2018-02-16 10:25 | HHI.CCPN ---
Subjective Remarks/Hospital Course 01/30: 62-year-old female presents for evaluation of increasing shortness of breath and chest pain. She reports 1 week of coughing 3 days of pain in her left chest which radiates to her back, which prompted the visit to the emergency room yesterday. She rates her pain a 6 out of 10. She reports fevers , chills, fatigue, mild nausea. She denies any abdominal pain, vomiting. Patient denies any significant past medical history. Symptom onset was gradual , symptom severity is severe, there are no alleviating factors. Patient states that she has been taking the azithromycin antibiotics that were prescribed to her. She denies any current or historical tobacco use. 01/31: Intubated at 1 AM this morning and placed on mechanical ventilation due to worsening respiratory distress. Currently sedated, orally intubated on mechanical ventilation. 02/01: Remains sedated, orally intubated on mechanical ventilation. Went into A. fib with RVR this morning. Loaded with amiodarone, started on amiodarone drip and given digoxin 0.5 mg IV 02/02: Remains sedated, orally intubated on mechanical ventilation. Right sided pigtail catheter in place with 1+ air leak. Converted to sinus rhythm overnight. Remains on amiodarone gtt. 02/03: Remains sedated, orally intubated on mechanical ventilation. 1+ air leak and right sided pigtail catheter. Tolerating tube feeds. Remains on amiodarone gtt. 02/04: Noted to have pneumothorax on the left side this morning on routine chest x -ray which appeared to be under tension. Right sided pigtail catheter placed by Dr. Peña with reexpansion of lung. Patient remains sedated, orally intubated on mechanical ventilation. 1+ airleak and bilateral chest tubes noted. 02/05: Afebrile. Persistent leukocytosis, bilateral chest tubes continue on wall suction. Chest x-ray pending this a.m.. Patient scheduled for GRANT today, discussed with Dr. Vázquez. Patient continues on amiodarone infusion with sinus rhythm. Postprocedure GRANT,this afternoon, the patient became extremely agitated, noted significant increase in subcu emphysema, peak pressures 50's, O2 saturation significantly decreased to 78-80 %. Stat chest x-ray performed patient was noted to have a significant right pneumothorax. 20 Moldovan right chest tube placement emergently, with increase in O2 saturation decrease in peak inspiratory pressures. 02/06: Afebrile. Patient with persistent bilateral pneumothoraces, with diffuse bilateral infiltrates and massive SQ emphysema. O2 requirement significantly increased during the night, PIP 38-44. 28 F chest tubes were placed bilaterally with resolution of left pneumothorax and minimization of right pneumothorax, and improved oxygenation. 02/07: TMax 100.1 Chest tubes remain on suction. Resolution of pneumothoraces, continued extensive SQ emphysema. Persistent leukocytosis noted. FiO2 weaned to 50%. 02/08: Late entry note patient seen at 1250. Attempts at CPAP trials, unsuccessful this morning. FiO2 decreased 50%, with adequate oxygenation. 02/09: Afebrile. The patient was transitioned to CPAP trials with pressure support of 22/8. FiO2 currently at 55% continuing to wean. Patient noted with positive fluid balance Lasix 40 mg IV now, patient is initiated on Lasix 40 daily. Patient with positive air leak in chest tubes #1-28 Moldovan right and #3 pigtail left, both at 2+. Sedation vacation initiated early this a.m. patient neurologically intact. Patient continues on moderate sedation for CPAP to maintain ventilator synchrony plan for transitioning to Precedex. Noted improvement with subcu emphysema. Extensive discussion with patient's daughter regarding a possibility of a tracheostomy if unsuccessful with ventilator weaning process. 02/10: Subcutaneous emphysema has worsened overnight per RN who took care of the patient yesterday, now extending to the upper chest left neck and to the left side of the face including left eyelids. No increase in FiO2 requirement currently on 55%. I have reduced inspiratory pressure from 32 to 28. FiO2 reduced to 50%. Will check a repeat chest x-ray in afternoon if needed. Will request CT surgical evaluation for persistent subcutaneous emphysema despite 2 chest tubes bilaterally 02/11 Patient is sedated with Diprivan, Versed and Fentanyl drips. T: 101.[address] guided chest tube placement by IR today 02/12 No events overnight. Remains sedated and intubated. Afebrile. On PC/AC with PEEP: 8 and FIO2 40%. 02/13 Patient remains intubated and heavily sedated. Afebrile. Repeat CT chest yesterday showed loculated anterior left pneumothorax has resolved. A small left pleural effusion remains present and the 2 left chest tubes appear to be in good position to drain the fluid. Significant improvement in the bilateral chest wall subcutaneous emphysema. 02/14 Patient remains sedated and intubated. Afebrile. On Bumex drip 0.5mg/hr. 02/15 Patient remains intubated and sedated, On Bumex drip 0.5mg/hr with good urine output. T:100.1 02/16 Patient remains sedated and intubated. Off Bumex drip. Afebrile. Objective Vital Signs Date Time Temp Pulse Resp B/P (MAP) Pulse Ox O2 Delivery O2 Flow Rate FiO2 02/16/18 08:20 96 50 02/16/18 08:00 87 02/16/18 08:00 98.5 20 127/57 (80) Intake and Output 02/16/18 02/16/18 02/17/18 08:00 16:00 00:00 Intake Total 3765 ml Output Total 1700 ml Balance 2065 ml Result Diagram: 02/15/18 0340 02/15/18 1800 Other Results Laboratory Tests Test 02/15/18 14:08 02/15/18 15:00 02/15/18 18:00 Blood Gas Puncture Site LT RADIAL Blood Gas Patient Temperature 98.6 Blood Gas HCO3 40 mmol/L Blood Gas Base Excess 15.7 mmol/L Blood Gas Oxygen Saturation 94 % Arterial Blood pH 7.52 Arterial Blood Partial Pressure CO2 49 mmHg Arterial Blood Partial Pressure O2 76 mmHG Arterial Blood Oxygen Content 10.5 Vol % Arterial Blood Carboxyhemoglobin 1.6 % Arterial Blood Methemoglobin 0.7 % Blood Gas Hemoglobin 7.9 G/DL Oxygen Delivery Device VENTILATOR Blood Gas Ventilator Setting PRVC/AC Blood Gas Inspired Oxygen 50 % Urine Color LIGHT-YELLOW Urine Turbidity CLEAR Urine pH 8.5 Urine Specific [place] 1.007 Urine Protein TRACE mg/dL Urine Glucose (UA) NEG mg/dL Urine Ketones NEG mg/dL Urine Occult Blood MOD Urine Nitrite NEG Urine Bilirubin NEG Urine Urobilinogen LESS THAN 2.0 MG/DL Urine Leukocyte Esterase NEG Urine RBC 60 /hpf Urine WBC 2 /hpf Urine Hyaline Casts 11 /lpf Urine Mucus FEW /lpf Microscopic Urinalysis Comment CATH-CULT NOT IND Potassium Level 3.1 MEQ/L Imaging Last Impressions Chest X-Ray 02/15/18 0000 Signed Impressions: Service Date/Time: Thursday, February 15, 2018 12:49 - CONCLUSION: 1. Stable dual bilateral chest tubes in place without significant pneumothorax. 2. Persistent diffuse bilateral patchy airspace disease and small left pleural effusion. Romeo Espinoza MD Chest CT 02/12/18 1334 Signed Impressions: Service Date/Time: Monday, February 12, 2018 14:07 - CONCLUSION: 1. The loculated anterior left pneumothorax has resolved. A small left pleural effusion remains present and the 2 left chest tubes appear to be in good position to drain the fluid. 2. Significant improvement in the bilateral chest wall subcutaneous emphysema. 3. Stable severe kinking of the large bore right chest tube. This chest tube also extends into the fissure. Given these 2 findings, this likely not providing any significant suction. Consider removal. 4. Stable severe bilateral airspace consolidation with multifocal areas of cavitation. Michael Perea MD Liver Ultrasound 02/11/18 0000 Signed Impressions: Service Date/Time: Sunday, February 11, 2018 09:34 - CONCLUSION: Nondiagnostic examination CT scan is recommended for further evaluation if clinically indicated. To Vaughn MD Neck CT 02/10/18 0000 Signed Impressions: Service Date/Time: Saturday, February 10, 2018 14:57 - CONCLUSION: 1. Extensive subcutaneous edema in the neck which has dissected cephalad from the chest and is worse on the left side. 2. Support apparatus as above. See chest CT report for evaluation of lungs. 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 No adenopathy. Everett Ng MD Procedures 02/05- Right emergent 20 F chest tube placement 02/06: Left 28 Moldovan chest tube placement, right chest tube replacement 28 Moldovan Objective Remarks HEENT/ Neuro: Sedated, orally intubated, Pallor present, no icterus, tongue/ mucosa moist significant SQ emphysema. Left side of the face eyelid has significant subcu emphysema Neck: No JVD. Left side of the neck with significant subcutaneous emphysema Chest/Pulm: on mech vent, air entry decreased bilaterally at bases, scattered rhonchi bilaterally. Bilateral pigtail catheters insitu., and 28F chest tubes bilaterally to -40cm H20. CVS: S1-S2 regular, no murmur GI/abdomen: soft, nontender, bowel sounds hypoactive Neuro: RASS -2, currently on fentanyl, propofol and Versed infusions. Patient moving extremities 4 Extremities: warm bilaterally, 1+bilateral peripheral edema upper and lower extremities A/P Assessment and Plan Neuro: Neuro checks per ICU protocol propofol and fentanyl to maintain ventilator synchrony. Daily sedation vacation Pulm: Acute hypoxemic respiratory failure MRSA pneumonia MRSA bacteremia COPD Persistent bilateral pneumothorax, significant subcutaneous emphysema Post Influenza pneumonia? Continue vent support keep sats >92%, will need trach once more stable On PRVC RR 16, TV 500, IT:1.0, PEEP:8, FIO2: 70%. Decrease FIO2 55% DuoNeb scheduled and when necessary SBT daily as bernarda. Bilateral pigtail catheters and [address] in place(4 total) Repeat CT chest 02/12 The loculated anterior left pneumothorax has resolved. the 2 left chest tubes appear to be in good position to drain the fluid. Significant improvement in the bilateral chest wall subQ mphysema. Stable severe bilateral airspace consolidation with multifocal areas of cavitation. -Thoracic surgery is following- Dr. Thornton Patient will need trach/PEG. She is unlikely to be medically extubated. Consult General surgery for trach Renal: Acute kidney injury-resolved Dehydration-resolved - Maintain Alexandre -Monitor renal function, I/O's, electrolytes replacement per protocol. Will need K replacement today. D/C Bumex drip Cardiovascular: A. fib with RVR (converted to NSR 02/02) -02/05 amiodarone infusion discontinued. - 02/05 GRANT -no valvular vegetations. EF 55-60%, trace MVR, mild TVR, PAP 35 Monitor HR and BP keep MAP>65mmHfg On Cardizem 60mg Q6, Lopressor 25mg Q12 GI Elevated LFT;s Hepatitis profile: Negative US liver: non-diagnostic study -Tube feeds Jevity 1.5 60 cc/hr at goal,- On Pepcid 20mg BID Consult GI for PEG tube placement ID: MRSA, Enterobacter pneumonia MRSA Bacteremia - Antibiotics per ID. On Zyvox. Monitor for signs of infections ( Fever, WBC) -ID- Dr. Singleton following. 02/10 Sputum: MRSA 02/10 BC: NGTD Follow up on sputum cx from 02/15 Endocrine: Hyperglycemia Medium scale sliding scale insulin dosing Glucose monitoring per ICU protocol DVT GI prophylaxis - Teds SCDs - Subcutaneous heparin - Pepcid Lines: Right subclavian central line inserted 02/01. d/c central line once peripheral IV's placed Palliative care is following Patient was made Alternative code Level 3 Lenard Qureshi MD Feb 16, 2018 10:25
[2018-02-16 11:01] LABS: AUTOMATED NEUTROPHIL # 13.5 TH/MM3 (1.8-7.7); BASOPHIL % 0.2 % (0.0-2.0); EOSINOPHIL # 0.2 TH/MM3 (0-0.4); EOSINOPHIL % 1.5 % (0.0-4.0); HEMATOCRIT 22.1 % (35.0-46.0); HEMOGLOBIN 7.3 GM/DL (11.6-15.3); LYMPH % 7.4 % (9.0-44.0); LYMPHOCYTE # 1.2 TH/MM3 (1.0-4.8); MEAN CELL VOLUME 84.3 FL (80.0-100.0); MEAN CORPUSCULAR HEMOGLOBIN 27.7 PG (27.0-34.0); MEAN CORPUSCULAR HGB CONC 32.8 % (32.0-36.0); MEAN PLATELET VOLUME 7.1 FL (7.0-11.0); MONO % 5.3 % (0.0-8.0); MONOCYTE # 0.8 TH/MM3 (0-0.9); NEUT % 85.6 % (16.0-70.0); PLATELET COUNT 569 TH/MM3 (150-450); RED BLOOD COUNT 2.62 MIL/MM3 (4.00-5.30); RED CELL DISTRIBUTION WIDTH 15.8 % (11.6-17.2); WHITE BLOOD COUNT 15.7 TH/MM3 (4.0-11.0)
[2018-02-16 11:19] LABS: ALT (GPT) 52 U/L (10-53); AST (GOT) 34 U/L (15-37); BICARBONATE 34.6 MEQ/L (21.0-32.0); BLOOD UREA NITROGEN 14 MG/DL (7-18); CALCIUM 8.4 MG/DL (8.5-10.1); CHLORIDE 97 MEQ/L (98-107); CREATININE 0.65 MG/DL (0.50-1.00); GLOMERULAR FILTRATION RATE 92 ML/MIN (>89); GLUCOSE,RANDOM 197 MG/DL (74-106); MAGNESIUM 2.2 MG/DL (1.5-2.5); PHOSPHORUS 4.2 MG/DL (2.5-4.9); SODIUM (NA) 137 MEQ/L (136-145)
[2018-02-16 11:22] LABS: ALKALINE PHOSPHATASE 343 U/L (45-117); TOTAL BILIRUBIN ADULT 0.3 MG/DL (0.2-1.0); TOTAL PROTEIN 6.8 GM/DL (6.4-8.2)
--- NOTE | 2018-02-16 16:33 | HHI.IDPN ---
Subjective Subjective Remarks remains on vent, 50% FiO2 CTs x 4, no airleak, no drainage afebrile waking up, following with eyes Antibiotics Zyvox IV Lines Line sites with no e.o infection Past Medical History Gastric bypass Tonsillectomy Allergies: Coded Allergies: No Known Allergies (Unverified , 01/30/18) Objective . Vital Signs Date Time Temp Pulse Resp B/P (MAP) Pulse Ox O2 Delivery O2 Flow Rate FiO2 02/16/18 16:00 55 02/16/18 16:00 73 02/16/18 16:00 98.9 78 15 127/60 (82) 92 02/16/18 15:10 94 50 02/16/18 14:00 72 02/16/18 12:00 78 02/16/18 12:00 55 02/16/18 12:00 97.6 78 21 143/67 (92) 98 02/16/18 11:37 98 50 02/16/18 10:00 77 02/16/18 08:20 96 50 02/16/18 08:00 55 02/16/18 08:00 87 02/16/18 08:00 98.5 82 20 127/57 (80) 94 02/16/18 06:00 80 02/16/18 04:04 92 50 02/16/18 04:00 88 02/16/18 04:00 50 02/16/18 04:00 98.5 88 38 181/83 (115) 86 02/16/18 00:00 93 02/16/18 00:00 50 02/16/18 00:00 99.2 93 27 174/83 (113) 95 02/15/18 23:55 94 50 02/15/18 22:00 98 02/15/18 20:29 92 40 02/15/18 20:00 98.8 92 23 148/68 (94) 92 02/15/18 20:00 50 02/15/18 20:00 92 02/15/18 18:00 95 02/15/18 17:00 96 . Laboratory Tests Test 02/15/18 03:40 02/16/18 10:45 White Blood Count 17.2 TH/MM3 15.7 TH/MM3 Red Blood Count 2.96 MIL/MM3 2.62 MIL/MM3 Hemoglobin 8.2 GM/DL 7.3 GM/DL Hematocrit 24.7 % 22.1 % Mean Corpuscular Volume 83.6 FL 84.3 FL Mean Corpuscular Hemoglobin 27.6 PG 27.7 PG Mean Corpuscular Hemoglobin Concent 33.0 % 32.8 % Red Cell Distribution Width 15.7 % 15.8 % Platelet Count 668 TH/MM3 569 TH/MM3 Mean Platelet Volume 7.8 FL 7.1 FL Neutrophils (%) (Auto) 88.4 % 85.6 % Lymphocytes (%) (Auto) 6.5 % 7.4 % Monocytes (%) (Auto) 4.1 % 5.3 % Eosinophils (%) (Auto) 0.8 % 1.5 % Basophils (%) (Auto) 0.2 % 0.2 % Neutrophils # (Auto) 15.2 TH/MM3 13.5 TH/MM3 Lymphocytes # (Auto) 1.1 TH/MM3 1.2 TH/MM3 Monocytes # (Auto) 0.7 TH/MM3 0.8 TH/MM3 Eosinophils # (Auto) 0.1 TH/MM3 0.2 TH/MM3 Basophils # (Auto) 0.0 TH/MM3 0.0 TH/MM3 CBC Comment DIFF FINAL DIFF FINAL Differential Comment Laboratory Tests Test 02/14/18 16:33 02/15/18 03:40 02/15/18 18:00 02/16/18 10:45 Potassium Level 3.6 MEQ/L 3.0 MEQ/L 3.1 MEQ/L 3.5 MEQ/L Blood Urea Nitrogen 11 MG/DL 14 MG/DL Creatinine 0.68 MG/DL 0.65 MG/DL Random Glucose 230 MG/DL 197 MG/DL Total Protein 6.9 GM/DL 6.8 GM/DL Albumin 0.9 GM/DL 1.0 GM/DL Calcium Level 8.2 MG/DL 8.4 MG/DL Phosphorus Level 3.6 MG/DL 4.2 MG/DL Magnesium Level 1.8 MG/DL 2.2 MG/DL Alkaline Phosphatase 461 U/L 343 U/L Aspartate Amino Transf (AST/SGOT) 67 U/L 34 U/L Alanine Aminotransferase (ALT/SGPT) 68 U/L 52 U/L Total Bilirubin 0.4 MG/DL 0.3 MG/DL Sodium Level 138 MEQ/L 137 MEQ/L Chloride Level 92 MEQ/L 97 MEQ/L Carbon Dioxide Level 39.4 MEQ/L 34.6 MEQ/L Anion Gap 7 MEQ/L 5 MEQ/L Estimat Glomerular Filtration Rate 88 ML/MIN 92 ML/MIN Microbiology Date/Time Source Procedure Growth Status 02/15/18 15:00 Sputum Endotracheal Gram Stain - Final Resulted 02/15/18 15:00 Sputum Endotracheal Sputum Culture - Preliminary IMMATURE GROWTH - REINCUBATE Resulted Imaging Last Impressions Chest X-Ray 02/15/18 0000 Signed Impressions: Service Date/Time: Thursday, February 15, 2018 12:49 - CONCLUSION: 1. Stable dual bilateral chest tubes in place without significant pneumothorax. 2. Persistent diffuse bilateral patchy airspace disease and small left pleural effusion. Romeo Espinoza MD Chest CT 02/12/18 1334 Signed Impressions: Service Date/Time: Monday, February 12, 2018 14:07 - CONCLUSION: 1. The loculated anterior left pneumothorax has resolved. A small left pleural effusion remains present and the 2 left chest tubes appear to be in good position to drain the fluid. 2. Significant improvement in the bilateral chest wall subcutaneous emphysema. 3. Stable severe kinking of the large bore right chest tube. This chest tube also extends into the fissure. Given these 2 findings, this likely not providing any significant suction. Consider removal. 4. Stable severe bilateral airspace consolidation with multifocal areas of cavitation. Michael Perea MD Liver Ultrasound 02/11/18 0000 Signed Impressions: Service Date/Time: Sunday, February 11, 2018 09:34 - CONCLUSION: Nondiagnostic examination CT scan is recommended for further evaluation if clinically indicated. To Vaughn MD Neck CT 02/10/18 0000 Signed Impressions: Service Date/Time: Saturday, February 10, 2018 14:57 - CONCLUSION: 1. Extensive subcutaneous edema in the neck which has dissected cephalad from the chest and is worse on the left side. 2. Support apparatus as above. See chest CT report for evaluation of lungs. 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 No adenopathy. Everett Ng MD Physical Exam CONSTITUTIONAL/GENERAL: On the vent SKIN: No jaundice, rashes, or lesions. Ecchymoses on upper extremities. Skin temperature appropriate. generalized edema previous Sq emphysema resolved HEAD: Atraumatic. Normocephalic. EYES: Pupils equal and round and reactive. No scleral icterus. No injection or drainage. ENT: No nasal discharge, orally intubated NECK: Supple, nontender. CARDIOVASCULAR: Regular rate and rhythm without murmurs, gallops, or rubs. RESPIRATORY/CHEST: Symmetric, unlabored respirations. Rhonchi b/l. CTx2 on R and CT x 2 on the L GASTROINTESTINAL: Abdomen soft, nondistended. Obese. Mild grimacing during palpation, not guarding. GENITOURINARY: Without palpable bladder distension. Alexandre catheter in place. MUSCULOSKELETAL: Extremities without clubbing, cyanosis, + 3 diffuse edema. . NEUROLOGICAL: does noty track, eyes opened intermittently responsive with eye opening PSYCHIATRIC: appears calm LINE: no evidence of infection Assessment & Plan Remarks IMPRESSION MRSA PNA Multiple b/l pneumothoraces ? postinfluenza PNA Loculated hydropneumothorax: ? empyema Acute VDRF not weaning ; High grade , sustained MRSA bacteremia GRANT negative Severe leukocytosis and bandemia New PNA, Enterobacter (panS) along with MRSA Empyema and multiple cavitary lesions - essentaially necrotizing PNA - no e/o endocarditis - CTS not planning to do any sx MS change PLAN fu P sputum Continue Zyvox. Monitor platelets and HCO3. Carlene Singleton MD Feb 16, 2018 16:33
[2018-02-17] VITALS (31 sets, daily range): BP systolic 109–157; BP diastolic 52–71; PULSE 68–112; RESP 18–31; TEMP 96.9–100.8; O2SAT 90–97
[2018-02-17] MEDS: DILTIAZEM HCL 30 MG TAB PO SCH ×5 (00:34→23:05)
[2018-02-17] MEDS: LINEZOLID 600 MG PREMIX 300 ML IV SCH ×2 (00:35→12:09)
[2018-02-17] MEDS: METOPROLOL TARTRATE 25 MG TAB PO SCH ×2 (00:35→12:10)
[2018-02-17] MEDS: INSULIN ASPART SUPPLEMENTAL SCALE SQ SCH ×5 (00:35→23:05)
[2018-02-17] MEDS: fentaNYL 2,500 MCG/NS 250 ML IV PRN ×3 (00:36→20:32)
[2018-02-17] MEDS: PROPOFOL 1000 MG/100 ML IV PRN ×8 (00:48→23:05)
[2018-02-17] MEDS: CHLORHEXIDINE GLUCONATE 2 % 1 PACK (2 CLOTHS) TOP SCH (03:38)
--- NOTE | 2018-02-17 05:14 | RADRPT ---
EXAM DATE/TIME: 02/17/2018 04:00 [facility] COMPARISON: CHEST SINGLE AP, February 15, 2018, 12:49. INDICATIONS : Shortness of breath, possible pulmonary disease. MEDICAL HISTORY : Sepsis. SURGICAL HISTORY : Tonsillectomy. Gastric bypass. ENCOUNTER: Subsequent ACUITY: 2 weeks PAIN SCORE: Non-responsive. LOCATION: Bilateral chest FINDINGS: The cardiac silhouette is normal in transverse diameter. There is no evidence of pneumothorax. There is patchy alveolar disease bilaterally compatible with edema or pneumonia. Support lines and tubes a re in satisfactory position. CONCLUSION: 1. Patchy alveolar disease characteristic of edema or pneumonia. There has been no significant [place] e when compared to the prior exam. To Vaughn MD on February 17, 2018 at 5:12 Board Certified Radiologist. This report was verified electronically.
[2018-02-17] MEDS: HEPARIN SODIUM - SQ 10,000 UNITS/ML VIAL SQ SCH (05:39)
[2018-02-17 07:22] LABS: AUTOMATED NEUTROPHIL # 12.8 TH/MM3 (1.8-7.7); BASOPHIL # 0.2 TH/MM3 (0-0.2); BASOPHIL % 1.1 % (0.0-2.0); EOSINOPHIL # 0.9 TH/MM3 (0-0.4); EOSINOPHIL % 5.5 % (0.0-4.0); HEMATOCRIT 24.2 % (35.0-46.0); HEMOGLOBIN 7.9 GM/DL (11.6-15.3); LYMPH % 6.6 % (9.0-44.0); MEAN CELL VOLUME 85.4 FL (80.0-100.0); MEAN CORPUSCULAR HEMOGLOBIN 27.8 PG (27.0-34.0); MEAN CORPUSCULAR HGB CONC 32.5 % (32.0-36.0); MEAN PLATELET VOLUME 7.9 FL (7.0-11.0); MONO % 5.5 % (0.0-8.0); MONOCYTE # 0.9 TH/MM3 (0-0.9); NEUT % 81.3 % (16.0-70.0); PLATELET COUNT 512 TH/MM3 (150-450); RED BLOOD COUNT 2.83 MIL/MM3 (4.00-5.30); RED CELL DISTRIBUTION WIDTH 16.1 % (11.6-17.2); WHITE BLOOD COUNT 15.7 TH/MM3 (4.0-11.0)
[2018-02-17 07:45] LABS: BICARBONATE 33.3 MEQ/L (21.0-32.0); CALCIUM 8.8 MG/DL (8.5-10.1); CREATININE 0.65 MG/DL (0.50-1.00); MAGNESIUM 2.3 MG/DL (1.5-2.5)
[2018-02-17 07:46] LABS: PHOSPHORUS 3.9 MG/DL (2.5-4.9)
[2018-02-17] MEDS: CHLORHEXIDINE 0.12% (ORAL KIT) 15 ML CUP MT SCH ×2 (08:00→20:00)
[2018-02-17] MEDS: SODIUM CHLORIDE 0.9% FLUSH 10 ML FLUSH IV FLUSH SCH ×2 (08:56→20:31)
[2018-02-17] MEDS: DOCUSATE SODIUM 50 MG/SENNA 8.6 MG TAB PO SCH ×2 (08:56→20:31)
[2018-02-17] MEDS: ASPIRIN 81 MG CHEW TAB CHEW SCH (08:56)
[2018-02-17] MEDS: FAMOTIDINE 20 MG TAB PO SCH ×2 (08:56→20:31)
--- NOTE | 2018-02-17 08:56 | HHI.CCPN ---
Subjective Remarks/Hospital Course 01/30: 62-year-old female presents for evaluation of increasing shortness of breath and chest pain. She reports 1 week of coughing 3 days of pain in her left chest which radiates to her back, which prompted the visit to the emergency room yesterday. She rates her pain a 6 out of 10. She reports fevers , chills, fatigue, mild nausea. She denies any abdominal pain, vomiting. Patient denies any significant past medical history. Symptom onset was gradual , symptom severity is severe, there are no alleviating factors. Patient states that she has been taking the azithromycin antibiotics that were prescribed to her. She denies any current or historical tobacco use. 01/31: Intubated at 1 AM this morning and placed on mechanical ventilation due to worsening respiratory distress. Currently sedated, orally intubated on mechanical ventilation. 02/01: Remains sedated, orally intubated on mechanical ventilation. Went into A. fib with RVR this morning. Loaded with amiodarone, started on amiodarone drip and given digoxin 0.5 mg IV 02/02: Remains sedated, orally intubated on mechanical ventilation. Right sided pigtail catheter in place with 1+ air leak. Converted to sinus rhythm overnight. Remains on amiodarone gtt. 02/03: Remains sedated, orally intubated on mechanical ventilation. 1+ air leak and right sided pigtail catheter. Tolerating tube feeds. Remains on amiodarone gtt. 02/04: Noted to have pneumothorax on the left side this morning on routine chest x -ray which appeared to be under tension. Right sided pigtail catheter placed by Dr. Peña with reexpansion of lung. Patient remains sedated, orally intubated on mechanical ventilation. 1+ airleak and bilateral chest tubes noted. 02/05: Afebrile. Persistent leukocytosis, bilateral chest tubes continue on wall suction. Chest x-ray pending this a.m.. Patient scheduled for GRANT today, discussed with Dr. Vázquez. Patient continues on amiodarone infusion with sinus rhythm. Postprocedure GRANT,this afternoon, the patient became extremely agitated, noted significant increase in subcu emphysema, peak pressures 50's, O2 saturation significantly decreased to 78-80 %. Stat chest x-ray performed patient was noted to have a significant right pneumothorax. 20 Kyrgyz right chest tube placement emergently, with increase in O2 saturation decrease in peak inspiratory pressures. 02/06: Afebrile. Patient with persistent bilateral pneumothoraces, with diffuse bilateral infiltrates and massive SQ emphysema. O2 requirement significantly increased during the night, PIP 38-44. 28 F chest tubes were placed bilaterally with resolution of left pneumothorax and minimization of right pneumothorax, and improved oxygenation. 02/07: TMax 100.1 Chest tubes remain on suction. Resolution of pneumothoraces, continued extensive SQ emphysema. Persistent leukocytosis noted. FiO2 weaned to 50%. 02/08: Late entry note patient seen at 1250. Attempts at CPAP trials, unsuccessful this morning. FiO2 decreased 50%, with adequate oxygenation. 02/09: Afebrile. The patient was transitioned to CPAP trials with pressure support of 22/8. FiO2 currently at 55% continuing to wean. Patient noted with positive fluid balance Lasix 40 mg IV now, patient is initiated on Lasix 40 daily. Patient with positive air leak in chest tubes #1-28 Kyrgyz right and #3 pigtail left, both at 2+. Sedation vacation initiated early this a.m. patient neurologically intact. Patient continues on moderate sedation for CPAP to maintain ventilator synchrony plan for transitioning to Precedex. Noted improvement with subcu emphysema. Extensive discussion with patient's daughter regarding a possibility of a tracheostomy if unsuccessful with ventilator weaning process. 02/10: Subcutaneous emphysema has worsened overnight per RN who took care of the patient yesterday, now extending to the upper chest left neck and to the left side of the face including left eyelids. No increase in FiO2 requirement currently on 55%. I have reduced inspiratory pressure from 32 to 28. FiO2 reduced to 50%. Will check a repeat chest x-ray in afternoon if needed. Will request CT surgical evaluation for persistent subcutaneous emphysema despite 2 chest tubes bilaterally 02/11 Patient is sedated with Diprivan, Versed and Fentanyl drips. T: 101.[address] guided chest tube placement by IR today 02/12 No events overnight. Remains sedated and intubated. Afebrile. On PC/AC with PEEP: 8 and FIO2 40%. 02/13 Patient remains intubated and heavily sedated. Afebrile. Repeat CT chest yesterday showed loculated anterior left pneumothorax has resolved. A small left pleural effusion remains present and the 2 left chest tubes appear to be in good position to drain the fluid. Significant improvement in the bilateral chest wall subcutaneous emphysema. 02/14 Patient remains sedated and intubated. Afebrile. On Bumex drip 0.5mg/hr. 02/15 Patient remains intubated and sedated, On Bumex drip 0.5mg/hr with good urine output. T:100.1 02/16 Patient remains sedated and intubated. Off Bumex drip. Afebrile. 02/17 Remains intubated and sedated with Diprivan and Fentanyl drips. Afebrile. For trach tomorrow. Objective Vital Signs Date Time Temp Pulse Resp B/P (MAP) Pulse Ox O2 Delivery O2 Flow Rate FiO2 02/17/18 07:46 93 50 02/17/18 06:00 94 02/17/18 04:00 96.9 21 141/65 (90) Intake and Output 02/17/18 02/17/18 02/18/18 08:00 16:00 00:00 Intake Total 2786 ml Output Total 1200 ml Balance 1586 ml Result Diagram: 02/17/18 0627 02/17/18 0627 Other Results Laboratory Tests Test 02/16/18 10:45 02/17/18 06:27 White Blood Count 15.7 TH/MM3 15.7 TH/MM3 Red Blood Count 2.62 MIL/MM3 2.83 MIL/MM3 Hemoglobin 7.3 GM/DL 7.9 GM/DL Hematocrit 22.1 % 24.2 % Mean Corpuscular Volume 84.3 FL 85.4 FL Mean Corpuscular Hemoglobin 27.7 PG 27.8 PG Mean Corpuscular Hemoglobin Concent 32.8 % 32.5 % Red Cell Distribution Width 15.8 % 16.1 % Platelet Count 569 TH/MM3 512 TH/MM3 Mean Platelet Volume 7.1 FL 7.9 FL Neutrophils (%) (Auto) 85.6 % 81.3 % Lymphocytes (%) (Auto) 7.4 % 6.6 % Monocytes (%) (Auto) 5.3 % 5.5 % Eosinophils (%) (Auto) 1.5 % 5.5 % Basophils (%) (Auto) 0.2 % 1.1 % Neutrophils # (Auto) 13.5 TH/MM3 12.8 TH/MM3 Lymphocytes # (Auto) 1.2 TH/MM3 1.0 TH/MM3 Monocytes # (Auto) 0.8 TH/MM3 0.9 TH/MM3 Eosinophils # (Auto) 0.2 TH/MM3 0.9 TH/MM3 Basophils # (Auto) 0.0 TH/MM3 0.2 TH/MM3 CBC Comment DIFF FINAL AUTO DIFF Differential Comment Blood Urea Nitrogen 14 MG/DL 17 MG/DL Creatinine 0.65 MG/DL 0.65 MG/DL Random Glucose 197 MG/DL 178 MG/DL Total Protein 6.8 GM/DL Albumin 1.0 GM/DL Calcium Level 8.4 MG/DL 8.8 MG/DL Alkaline Phosphatase 343 U/L Aspartate Amino Transf (AST/SGOT) 34 U/L Alanine Aminotransferase (ALT/SGPT) 52 U/L Total Bilirubin 0.3 MG/DL Sodium Level 137 MEQ/L 137 MEQ/L Potassium Level 3.5 MEQ/L 3.5 MEQ/L Chloride Level 97 MEQ/L 96 MEQ/L Carbon Dioxide Level 34.6 MEQ/L 33.3 MEQ/L Anion Gap 5 MEQ/L 8 MEQ/L Estimat Glomerular Filtration Rate 92 ML/MIN 92 ML/MIN Phosphorus Level 4.2 MG/DL 3.9 MG/DL Magnesium Level 2.2 MG/DL 2.3 MG/DL Imaging Last Impressions Chest X-Ray 02/17/18 0000 Signed Impressions: Service Date/Time: Saturday, February 17, 2018 04:00 - CONCLUSION: 1. Patchy alveolar disease characteristic of edema or pneumonia. There has been no significant change when compared to the prior exam. To Vaughn MD Chest CT 02/12/18 1334 Signed Impressions: Service Date/Time: Monday, February 12, 2018 14:07 - CONCLUSION: 1. The loculated anterior left pneumothorax has resolved. A small left pleural effusion remains present and the 2 left chest tubes appear to be in good position to drain the fluid. 2. Significant improvement in the bilateral chest wall subcutaneous emphysema. 3. Stable severe kinking of the large bore right chest tube. This chest tube also extends into the fissure. Given these 2 findings, this likely not providing any significant suction. Consider removal. 4. Stable severe bilateral airspace consolidation with multifocal areas of cavitation. Michael Perea MD Liver Ultrasound 02/11/18 0000 Signed Impressions: Service Date/Time: Sunday, February 11, 2018 09:34 - CONCLUSION: Nondiagnostic examination CT scan is recommended for further evaluation if clinically indicated. To Vaughn MD Neck CT 02/10/18 0000 Signed Impressions: Service Date/Time: Saturday, February 10, 2018 14:57 - CONCLUSION: 1. Extensive subcutaneous edema in the neck which has dissected cephalad from the chest and is worse on the left side. 2. Support apparatus as above. See chest CT report for evaluation of lungs. 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 No adenopathy. Everett Ng MD Procedures 02/05- Right emergent 20 F chest tube placement 02/06: Left 28 Kyrgyz chest tube placement, right chest tube replacement 28 Kyrgyz Objective Remarks HEENT/ Neuro: Sedated, orally intubated, Pallor present, no icterus, tongue/ mucosa moist significant SQ emphysema. Left side of the face eyelid has significant subcu emphysema Neck: No JVD. Left side of the neck with significant subcutaneous emphysema Chest/Pulm: on mech vent, air entry decreased bilaterally at bases, scattered rhonchi bilaterally. Bilateral pigtail catheters insitu., and 28F chest tubes bilaterally to -40cm H20. CVS: S1-S2 regular, no murmur GI/abdomen: soft, nontender, bowel sounds hypoactive Neuro: RASS -2, currently on fentanyl, propofol and Versed infusions. Patient moving extremities 4 Extremities: warm bilaterally, 1+bilateral peripheral edema upper and lower extremities A/P Assessment and Plan Neuro: Neuro checks per ICU protocol propofol and fentanyl to maintain ventilator synchrony. Daily sedation vacation Pulm: Acute hypoxemic respiratory failure MRSA pneumonia MRSA bacteremia COPD Persistent bilateral pneumothorax, significant subcutaneous emphysema Post Influenza pneumonia? Continue vent support keep sats >92%, On PRVC RR 16, TV 500, IT:1.0, PEEP:8, FIO2: 50%. Decrease FIO2 40% as bernarda DuoNeb scheduled and when necessary SBT daily as bernarda. For trach tomorrow with Dr. Nj Bilateral pigtail catheters and [address] in place(4 total) Repeat CT chest 02/12 The loculated anterior left pneumothorax has resolved. the 2 left chest tubes appear to be in good position to drain the fluid. Significant improvement in the bilateral chest wall subQ mphysema. Stable severe bilateral airspace consolidation with multifocal areas of cavitation. -Thoracic surgery is following- Dr. Thornton CXR: No significant changes b/l airspace disease Renal: Acute kidney injury-resolved Dehydration-resolved - Maintain Alexandre -Monitor renal function, I/O's, electrolytes replacement per protocol. Will need K replacement today. D/C Bumex drip Cardiovascular: A. fib with RVR (converted to NSR 02/02) -02/05 amiodarone infusion discontinued. - 02/05 GRANT -no valvular vegetations. EF 55-60%, trace MVR, mild TVR, PAP 35 Monitor HR and BP keep MAP>65mmHfg On Cardizem 60mg Q6, Lopressor 25mg Q12 GI Elevated LFT;s ( trending down) Hepatitis profile: Negative US liver: non-diagnostic study -Tube feeds Jevity 1.5 60 cc/hr at goal,- On Pepcid 20mg BID Consult GI for PEG tube placement ID: MRSA, Enterobacter pneumonia MRSA Bacteremia - Antibiotics per ID. On Zyvox. Monitor for signs of infections ( Fever, WBC) -ID- Dr. Singleton following. 02/10 Sputum: MRSA 02/10 BC: NGTD Check sputum cx Endocrine: Hyperglycemia Medium scale sliding scale insulin dosing Glucose monitoring per ICU protocol DVT GI prophylaxis - Teds SCDs - Subcutaneous heparin - Pepcid Lines: peripheral IV's Palliative care is following Code status: Alternative code Level 3 Lenard Qureshi MD Feb 17, 2018 08:56
[2018-02-17 09:04] LABS: TOXIC GRANULATION 1+ (NORMAL)
--- NOTE | 2018-02-17 11:38 | HHI.PR ---
cc: Kolton Padgett MD Subjective Subjective Notes sedated, intubated Objective Vitals/I&O Vital Signs Date Time Temp Pulse Resp B/P (MAP) Pulse Ox O2 Delivery O2 Flow Rate FiO2 02/17/18 11:15 92 50 02/17/18 10:00 94 02/17/18 08:00 98.4 21 119/58 (78) Labs Laboratory Tests Test 02/17/18 06:27 White Blood Count 15.7 Red Blood Count 2.83 Hemoglobin 7.9 Hematocrit 24.2 Mean Corpuscular Volume 85.4 Mean Corpuscular Hemoglobin 27.8 Mean Corpuscular Hemoglobin Concent 32.5 Red Cell Distribution Width 16.1 Platelet Count 512 Mean Platelet Volume 7.9 Neutrophils (%) (Auto) 81.3 Lymphocytes (%) (Auto) 6.6 Monocytes (%) (Auto) 5.5 Eosinophils (%) (Auto) 5.5 Basophils (%) (Auto) 1.1 Neutrophils # (Auto) 12.8 Lymphocytes # (Auto) 1.0 Monocytes # (Auto) 0.9 Eosinophils # (Auto) 0.9 Basophils # (Auto) 0.2 CBC Comment AUTO DIFF Differential Comment AUTO DIFF CONFIRMED Toxic Granulation 1+ Platelet Estimate HIGH Platelet Morphology Comment NORMAL Blood Urea Nitrogen 17 Creatinine 0.65 Random Glucose 178 Calcium Level 8.8 Phosphorus Level 3.9 Magnesium Level 2.3 Sodium Level 137 Potassium Level 3.5 Chloride Level 96 Carbon Dioxide Level 33.3 Anion Gap 8 Estimat Glomerular Filtration Rate 92 Date/Time Source Procedure Growth Status 02/10/18 21:35 Blood Other Aerobic Blood Culture - Final NO GROWTH IN 5 DAYS Complete 02/10/18 21:35 Blood Other Anaerobic Blood Culture - Final QNS - SEE AEROBE REPORT Complete 02/10/18 13:53 Genital Vaginal Genital Culture - Final Klebsiella Pneumoniae Zelda Albicans Complete 02/15/18 15:00 Sputum Endotracheal Gram Stain - Final Complete 02/15/18 15:00 Sputum Culture - Final S. Aureus Mrsa Complete 01/31/18 07:42 Urine Catheterized Urine Urine Culture - Final NO GROWTH IN 48 HOURS. Complete Lungs: Rhonchi Abdomen: Non-tender A/P Assessment and Plan acute respiratory failure vent dependent PLAN Trach tomorrow hold heparin npo at wa consent on chart Kolton Padgett MD Feb 17, 2018 11:38
--- NOTE | 2018-02-17 14:12 | PD.CONS ---
HPI History of Present Illness This is a 62 year old female with respiratory failure, pneumonia, pneumothorax required intubation, failed extubation measures. GI consulted for PEG tube. The plan is for trach tomorrow. PT tolerating TF okay. Daughter by bed side, agreeing to have PEG tube placed (JonathanAngelbea OSBORN) PFSH Past Medical History Morbid obesity status post gastric bypass surgery Mild depression . Past Surgical History Tonsillectomy Gastric bypass surgery "Tummy tuck" "Arm lifts" Bilateral carpal tunnel surgery tubal ligation . (Magaly Castillo) Coded Allergies: No Known Allergies (Unverified , 01/30/18) Medications Current Medications Medications (Trade) Dose Ordered Sig/Tyler Route Start Time Stop Time Status Last Admin (NS Flush) 2 ml UNSCH PRN IV FLUSH 01/30/18 19:00 02/05/18 09:03 (NS Flush) 2 ml BID IV FLUSH 01/30/18 21:00 02/17/18 08:56 (Tylenol) 650 mg Q6H PRN PO 01/30/18 19:00 02/11/18 00:30 (Morphine Inj) 2 mg Q2H PRN IV PUSH 01/30/18 19:00 02/05/18 11:41 (Zofran Inj) 4 mg Q6H PRN IV PUSH 01/30/18 19:00 (Restoril) 15 mg HS PRN PO 01/30/18 19:00 Future Hold (Duoneb Neb) 1 ampule Q2HR NEB PRN INH 01/30/18 19:00 02/16/18 19:56 Miscellaneous Information 1 Q361D XX 01/30/18 19:00 01/30/18 22:56 (Chlorhexidine 2% Cloth) Taper DAILY@04 TOP 01/31/18 04:00 01/27/19 03:59 02/12/18 04:15 (Chlorhexidine 2% Cloth) 3 pack UNSCH PRN TOP 01/30/18 19:00 (Chiquis-Colace) 1 tab BID PO 01/30/18 21:00 02/17/18 08:56 (Milk Of Magnesia Liq) 30 ml Q12H PRN PO 01/30/18 19:00 (Senokot) 17.2 mg Q12H PRN PO 01/30/18 19:00 4/18 17:02 (Dulcolax Supp) 10 mg DAILY PRN RECTAL 01/30/18 19:00 02/07/18 05:30 (Lactulose Liq) 30 ml DAILY PRN PO 01/30/18 19:00 (Peridex 0.12% Liq) 15 ml BID@08,20 MT 01/31/18 08:00 02/17/18 08:00 Fentanyl Citrate 250 ml @ 20 mls/hr TITRATE PRN IV 01/30/18 23:45 02/17/18 12:08 Linezolid 300 ml @ 300 mls/hr Q12H IV 02/01/18 01:00 02/17/18 12:09 (D50w (Vial) Inj) 25 ml UNSCH PRN IV 02/02/18 15:15 (Glucagon Inj) 1 mg UNSCH PRN IM/SQ 02/02/18 15:15 (Trandate Inj) 10 mg Q4H PRN IV PUSH 02/04/18 05:00 02/16/18 00:18 (Apresoline Inj) 20 mg Q4H PRN IV PUSH 02/04/18 05:00 02/16/18 03:40 (Aspirin Chew) 81 mg DAILY CHEW 02/06/18 09:00 02/17/18 08:56 Propofol 100 ml @ 3.345 mls/ hr TITRATE PRN IV 02/07/18 19:30 02/17/18 12:09 (NovoLOG SUPPLEMENTAL SCALE) 1 Q6H SQ 02/11/18 12:00 02/17/18 06:13 Potassium Chloride 100 ml @ 50 mls/hr Q2H PRN IV 02/12/18 10:00 02/15/18 09:11 Potassium Chloride 100 ml @ 50 mls/hr Q2H PRN IV 02/12/18 10:00 02/16/18 04:56 (K-Lyte Cl Eff) 50 meq UNSCH PRN PO 02/12/18 10:00 Potassium Chloride 100 ml @ 25 mls/hr UNSCH PRN IV 02/12/18 10:00 Potassium Chloride 100 ml @ 50 mls/hr Q2H PRN IV 02/12/18 10:00 Magnesium Sulfate 4 gm/Sodium Chloride 100 ml @ 50 mls/hr UNSCH PRN IV 02/12/18 10:00 (Mag-Ox) 800 mg UNSCH PRN PO 02/12/18 10:00 Magnesium Sulfate 2 gm/Sodium Chloride 100 ml @ 50 mls/hr UNSCH PRN IV 02/12/18 10:00 (K-Phos) 2,000 mg Q4H PRN PO 02/12/18 10:00 Sodium Phosphate 30 mmol/Sodium Chloride 250 ml @ 42 mls/hr UNSCH PRN IV 02/12/18 10:00 (K-Phos) 2,000 mg UNSCH PRN PO/TUBE 02/12/18 10:00 Potassium Phosphate 30 mmol/ Sodium Chloride 260 ml @ 42 mls/hr UNSCH PRN IV 02/12/18 10:00 (Pepcid) 20 mg BID PO 02/12/18 21:00 02/17/18 08:56 (Cardizem) 60 mg Q6HR PO 02/14/18 12:00 02/17/18 12:10 (Lopressor) 25 mg Q12H PO 02/15/18 13:00 02/17/18 12:10 Family History * The patient's father reportedly from complications incurred from a beating while under police custody. * The patient's mother of complications of a bowel obstruction * A brother had lung cancer * A sister had breast cancer * Grandson had leukemia * Family history is also remarkable for heart disease. . Social History Not able to obtain, pt is sedated (Magaly Castillo) Review of Systems PT is sedated, unable to obtain (Magaly Castillo) GI Exam Vitals I&O Vital Signs Date Time Temp Pulse Resp B/P (MAP) Pulse Ox O2 Delivery O2 Flow Rate FiO2 02/17/18 13:30 93 19 135/60 (85) 90 02/17/18 13:15 92 20 111/55 (73) 91 02/17/18 13:00 93 19 122/59 (80) 91 02/17/18 12:45 93 19 109/52 (71) 90 02/17/18 12:30 112 21 148/68 (94) 92 02/17/18 12:15 111 22 144/63 (90) 92 02/17/18 12:00 50 02/17/18 12:00 106 19 145/64 (91) 92 02/17/18 12:00 98.2 90 21 109/52 (71) 93 02/17/18 12:00 94 02/17/18 11:45 112 24 154/67 (96) 92 02/17/18 11:30 112 25 154/71 (98) 92 02/17/18 11:15 108 23 147/67 (93) 92 02/17/18 11:15 92 50 02/17/18 11:00 105 20 145/65 (91) 92 02/17/18 10:45 109 24 154/66 (95) 91 02/17/18 10:30 105 19 134/62 (86) 91 02/17/18 10:15 106 22 148/65 (92) 91 02/17/18 10:00 103 19 152/67 (95) 91 02/17/18 10:00 94 02/17/18 09:45 104 19 137/56 (83) 92 02/17/18 09:30 106 22 148/67 (94) 92 02/17/18 09:15 102 19 145/64 (91) 90 02/17/18 09:00 98 18 119/58 (78) 91 02/17/18 08:00 94 02/17/18 08:00 98.4 100 21 119/58 (78) 93 02/17/18 08:00 50 02/17/18 07:46 93 50 02/17/18 06:00 94 02/17/18 04:05 93 50 02/17/18 04:00 96.9 85 21 141/65 (90) 93 02/17/18 04:00 50 02/17/18 04:00 85 02/17/18 02:00 68 02/17/18 00:04 96 50 02/17/18 00:00 86 02/17/18 00:00 50 02/17/18 00:00 96.9 86 31 151/67 (95) 97 02/16/18 22:00 80 02/16/18 20:00 50 02/16/18 20:00 97.9 77 20 126/60 (82) 100 02/16/18 20:00 77 02/16/18 19:54 97 50 02/16/18 18:00 69 02/16/18 16:00 55 02/16/18 16:00 73 02/16/18 16:00 98.9 78 15 127/60 (82) 92 02/16/18 15:10 94 50 I/O 02/16/18 02/16/18 02/16/18 02/17/18 02/17/18 02/17/18 07:00 15:00 23:00 07:00 15:00 23:00 Intake Total 3765 ml 200 ml 1520 ml 2786 ml Output Total 1700 ml 1400 ml 1200 ml Balance 2065 ml 200 ml 120 ml 1586 ml IV Total 3163 ml 200 ml 650 ml 2128 ml Tube Feeding 602 ml 630 ml 658 ml Other 240 ml Output Urine Total 1700 ml 1400 ml 1200 ml Chest Tube Drainage Total 0 ml 0 ml 0 ml # Bowel Movements 2 0 0 Imaging Last Impressions Chest X-Ray 02/17/18 0000 Signed Impressions: Service Date/Time: Saturday, February 17, 2018 04:00 - CONCLUSION: 1. Patchy alveolar disease characteristic of edema or pneumonia. There has been no significant change when compared to the prior exam. To Vaughn MD Chest CT 02/12/18 1334 Signed Impressions: Service Date/Time: Monday, February 12, 2018 14:07 - CONCLUSION: 1. The loculated anterior left pneumothorax has resolved. A small left pleural effusion remains present and the 2 left chest tubes appear to be in good position to drain the fluid. 2. Significant improvement in the bilateral chest wall subcutaneous emphysema. 3. Stable severe kinking of the large bore right chest tube. This chest tube also extends into the fissure. Given these 2 findings, this likely not providing any significant suction. Consider removal. 4. Stable severe bilateral airspace consolidation with multifocal areas of cavitation. Micheal Perea MD Liver Ultrasound 02/11/18 0000 Signed Impressions: Service Date/Time: Sunday, February 11, 2018 09:34 - CONCLUSION: Nondiagnostic examination CT scan is recommended for further evaluation if clinically indicated. To Vaughn MD Neck CT 02/10/18 0000 Signed Impressions: Service Date/Time: Saturday, February 10, 2018 14:57 - CONCLUSION: 1. Extensive subcutaneous edema in the neck which has dissected cephalad from the chest and is worse on the left side. 2. Support apparatus as above. See chest CT report for evaluation of lungs. 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 No adenopathy. Everett Ng MD Laboratory Test 02/17/18 06:27 White Blood Count 15.7 TH/MM3 Red Blood Count 2.83 MIL/MM3 Hemoglobin 7.9 GM/DL Hematocrit 24.2 % Mean Corpuscular Volume 85.4 FL Mean Corpuscular Hemoglobin 27.8 PG Mean Corpuscular Hemoglobin Concent 32.5 % Red Cell Distribution Width 16.1 % Platelet Count 512 TH/MM3 Mean Platelet Volume 7.9 FL Neutrophils (%) (Auto) 81.3 % Lymphocytes (%) (Auto) 6.6 % Monocytes (%) (Auto) 5.5 % Eosinophils (%) (Auto) 5.5 % Basophils (%) (Auto) 1.1 % Neutrophils # (Auto) 12.8 TH/MM3 Lymphocytes # (Auto) 1.0 TH/MM3 Monocytes # (Auto) 0.9 TH/MM3 Eosinophils # (Auto) 0.9 TH/MM3 Basophils # (Auto) 0.2 TH/MM3 CBC Comment AUTO DIFF Differential Comment AUTO DIFF CONFIRMED Toxic Granulation 1+ Platelet Estimate HIGH Platelet Morphology Comment NORMAL Blood Urea Nitrogen 17 MG/DL Creatinine 0.65 MG/DL Random Glucose 178 MG/DL Calcium Level 8.8 MG/DL Phosphorus Level 3.9 MG/DL Magnesium Level 2.3 MG/DL Sodium Level 137 MEQ/L Potassium Level 3.5 MEQ/L Chloride Level 96 MEQ/L Carbon Dioxide Level 33.3 MEQ/L Anion Gap 8 MEQ/L Estimat Glomerular Filtration Rate 92 ML/MIN Date/Time Source Procedure Growth Status 02/10/18 21:35 Blood Other Aerobic Blood Culture - Final NO GROWTH IN 5 DAYS Complete 02/10/18 21:35 Blood Other Anaerobic Blood Culture - Final QNS - SEE AEROBE REPORT Complete 02/10/18 13:53 Genital Vaginal Genital Culture - Final Klebsiella Pneumoniae Zelda Albicans Complete 02/15/18 15:00 Sputum Endotracheal Gram Stain - Final Complete 02/15/18 15:00 Sputum Culture - Final S. Aureus Mrsa Complete 01/31/18 07:42 Urine Catheterized Urine Urine Culture - Final NO GROWTH IN 48 HOURS. Complete Physical Examination HEENT: P normocephalic; atraumatic; no jaundice. CHEST: Chest is clear to auscultation and percussion. CARDIAC: Regular rate and rhythm with no murmur gallop or rubs. ABDOMEN: Soft, nondistended, nontender; no hepatosplenomegaly; bowel sounds are present in all four quadrants. EXTREMITIES: No clubbing, cyanosis, or edema. SKIN: Normal; no rash; no jaundice. 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 GI consulted for PEG tube. The plan is for trach tomorrow. PT tolerating TF okay. 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 Jimenez and myself and this note is written on his behalf. (Magaly Castillo) Plan Patient was seen and examined, agree with above note, plan to do PEG tube tomorrow (Galina Jimenez MD) Magaly Castillo Feb 17, 2018 14:12 Galina Jimenez MD Feb 17, 2018 15:31
[2018-02-17] MEDS: cefTRIAXone INJ 1,000 MG in SODIUM CHLORIDE 0.9% INJ 100 ML IV ONE (14:15)
[2018-02-17] MEDS: RESP: ALBUTEROL 2.5 MG/IPRATROPIUM 0.5 MG NEB (PRN) INH (20:28)
[2018-02-17] MEDS: ACETAMINOPHEN 325 MG TAB PO PRN (20:49)
[2018-02-18] VITALS (19 sets, daily range): BP systolic 92–175; BP diastolic 50–82; PULSE 81–116; RESP 16–26; TEMP 98.2–99.9; O2SAT 89–100
[2018-02-18] MEDS: METOPROLOL TARTRATE 25 MG TAB PO SCH ×2 (00:51→13:00)
[2018-02-18] MEDS: PROPOFOL 1000 MG/100 ML IV PRN ×8 (00:51→22:55)
[2018-02-18] MEDS: LINEZOLID 600 MG PREMIX 300 ML IV SCH ×2 (00:51→13:24)
[2018-02-18] MEDS: CHLORHEXIDINE GLUCONATE 2 % 1 PACK (2 CLOTHS) TOP SCH (04:00)
[2018-02-18] MEDS: INSULIN ASPART SUPPLEMENTAL SCALE SQ SCH ×4 (04:23→22:54)
[2018-02-18] MEDS: DILTIAZEM HCL 30 MG TAB PO SCH ×4 (04:23→23:44)
[2018-02-18] MEDS: fentaNYL 2,500 MCG/NS 250 ML IV PRN (04:24)
[2018-02-18] MEDS ORDERED: POVIDONE IODINE 5% (ANTISEPSIS KIT) 4 APPLICATIONS EACH NARE PRN (06:15)
[2018-02-18] MEDS ORDERED: METOPROLOL TARTRATE 25 MG TAB PO PRN (06:15)
[2018-02-18] MEDS ORDERED: CHLORHEXIDINE GLUCONATE 2 % 1 PACK (2 CLOTHS) TOPICAL PRN (06:15)
[2018-02-18] MEDS ORDERED: LACTATED RINGER'S 1000 ML IV PRN (06:15)
[2018-02-18] MEDS ORDERED: SODIUM CHLORID 0.9% 500 ML IV PRN (06:15)
[2018-02-18 08:56] LABS: AUTOMATED NEUTROPHIL # 12.9 TH/MM3 (1.8-7.7); BASOPHIL # 0.1 TH/MM3 (0-0.2); BASOPHIL % 0.5 % (0.0-2.0); EOSINOPHIL # 1.1 TH/MM3 (0-0.4); EOSINOPHIL % 6.6 % (0.0-4.0); HEMATOCRIT 24.2 % (35.0-46.0); HEMOGLOBIN 7.9 GM/DL (11.6-15.3); LYMPH % 8.7 % (9.0-44.0); LYMPHOCYTE # 1.5 TH/MM3 (1.0-4.8); MEAN CORPUSCULAR HEMOGLOBIN 27.7 PG (27.0-34.0); MEAN CORPUSCULAR HGB CONC 32.6 % (32.0-36.0); MEAN PLATELET VOLUME 7.4 FL (7.0-11.0); MONO % 6.1 % (0.0-8.0); NEUT % 78.1 % (16.0-70.0); PLATELET COUNT 449 TH/MM3 (150-450); RED BLOOD COUNT 2.85 MIL/MM3 (4.00-5.30); RED CELL DISTRIBUTION WIDTH 16.2 % (11.6-17.2); WHITE BLOOD COUNT 16.6 TH/MM3 (4.0-11.0)
--- NOTE | 2018-02-18 08:59 | MB ---
cc: Kevin Nj MD DATE: 02/16/2018 REASON FOR CONSULTATION: Tracheostomy placement. HISTORY OF PRESENT ILLNESS: The patient is a 62-year-old female who was in otherwise fairly good health until being admitted 01/30 with increasing shortness of breath and chest pain. She had a week of coughing and 3 days of pain in her chest. She was intubated and had sedation. She went into atrial fibrillation with RVR and required placement of bilateral chest tubes with 2 tubes on either side. The patient continued to have persistent leukocytosis and subcutaneous emphysema. She has been able to be weaned on FIO2 down to 40%, but had a brief episode of requiring 70% FIO2 this morning. She is now back down to 50% FIO2 with a PEEP of 8. She remains sedated. I have been asked to see the patient to consider for tracheostomy placement. OTHER MEDICAL PROBLEMS: Include acute kidney injury that has resolved, A-fib with rapid ventricular response on Cardizem q.6 h. and Lopressor 25 mg q. 12 hrs. Transesophageal echo on 02/05 showed an EF of 55-60% and no valvular vegetations. PHYSICAL EXAMINATION: GENERAL: A female who is sedated. VITAL SIGNS: BP 143/67, pulse 78, respirations 21, temperature 97.6. CHEST: Clear to auscultation bilaterally without wheezes or rhonchi. HEART: Reveals regular rate and rhythm today without murmurs. ABDOMEN: Soft. NECK: Supple. An endotracheal tube is in and a feeding tube is in EXTREMITIES: Pulses are present. ASSESSMENT: Ventilator dependent respiratory failure with a gradual weaning. Bilateral pneumothoraces, improved. PLAN: Percutaneous tracheostomy placement at the bedside. I have spoken with the patient's daughter who is healthcare surrogate and have discussed risks of the procedure with her including but not limited to bleeding, infection, pneumothorax, trach dislodgement. I have discussed remedies, consequences alternatives and convalescence; she vocalizes understanding and agrees to proceed. We will place a tracheostomy tube on 02/18/2018, in the morning. Thank you, Dr. Esteban, for asking me to see this individual. MD SO Chao/ , 05:01 PM , 05:15 PM
[2018-02-18] MEDS: ASPIRIN 81 MG CHEW TAB CHEW SCH (09:00)
[2018-02-18 09:01] LABS: PROTHROMBIN TIME - PATIENT 9.9 SEC (9.8-11.6)
[2018-02-18 09:26] LABS: BICARBONATE 35.3 MEQ/L (21.0-32.0); CALCIUM 8.9 MG/DL (8.5-10.1); CREATININE 0.51 MG/DL (0.50-1.00)
[2018-02-18] MEDS: DOCUSATE SODIUM 50 MG/SENNA 8.6 MG TAB PO SCH ×2 (09:45→20:24)
[2018-02-18] MEDS: FAMOTIDINE 20 MG TAB PO SCH ×2 (09:45→20:24)
[2018-02-18] MEDS: SODIUM CHLORIDE 0.9% FLUSH 10 ML FLUSH IV FLUSH SCH ×2 (09:46→20:24)
[2018-02-18] MEDS: CHLORHEXIDINE 0.12% (ORAL KIT) 15 ML CUP MT SCH ×2 (09:49→20:24)
--- NOTE | 2018-02-18 11:15 | HHI.HCPN ---
Reason for visit a. To assist with evaluation and management of symptoms including: dyspnea; encephalopathy, pain b. To assist medical decision maker(s) with: better understanding of current medical conditions; weighing benefits/burdens of medical treatment options; making medical treatment decisions. . Subjective/Interval History Palliative care follow-up for further clarifications of goals of care, emotional support. Patient seen and medical ICU. She remains endotracheally intubated on mechanical ventilation. Currently on propofol and fentanyl drip. Currently on 50% FiO2, has not tolerating CPAP trials. Patient briefly opening eyes to tactile stimuli, not tracking or following any commands. Low-grade fever yesterday night, max temp 100.8. Laboratory workup today revealing persistent leukocytosis 16.6, Hgb stable at 7.9, platelet count 449. No signs of bleeding noted. Sputum culture 02/15 positive for S. Aureus MRSA. Infectious disease following. GI and general surgery consulted for trach and PEG placement, scheduled for today. Met with patient's daughters at bedside, patient's sister visiting from [place]. Medical update provided. Family confirmed aggressive goals, proceed with tracheostomy and PEG tube placement. Reviewed likely illness trajectory with anticipated prolonged hospitalization and rehab. Reviewed that patient remains at a very high risk of further complications, continued decline and . Family verbalized understanding. Family receptive to palliative care follow-ups as needed. . Family/friend interactions See interval note. . Advance Directives Living Will: Never completed Health Care Surrogate: Never completed Durable Power of Floral Merchandiser: Never completed Advance Directive Specifics Date completed: Patient has never completed an advanced directive. . Health Care Surrogate(s): There is no written designation of healthcare surrogate. . Documented care wishes: There is no written documentation of healthcare goals/preferences. . Significant change in goals: Aggressive goals short of no chest compressions or defibrillation. . Objective Vital Signs Date Time Temp Pulse Resp B/P (MAP) Pulse Ox O2 Delivery O2 Flow Rate FiO2 02/18/18 10:12 95 50 02/18/18 06:00 85 02/18/18 04:06 96 50 02/18/18 04:00 98.2 81 16 110/58 (75) 89 02/18/18 04:00 81 02/18/18 04:00 50 02/18/18 02:00 83 02/18/18 00:27 93 50 02/18/18 00:00 50 02/18/18 00:00 103 02/18/18 00:00 98.9 103 22 175/82 (113) 93 02/17/18 22:00 107 02/17/18 20:24 93 50 02/17/18 20:00 108 02/17/18 20:00 50 02/17/18 20:00 100.8 108 23 157/70 (99) 93 02/17/18 14:00 94 02/17/18 13:30 93 19 135/60 (85) 90 02/17/18 13:15 92 20 111/55 (73) 91 02/17/18 13:00 93 19 122/59 (80) 91 02/17/18 12:45 93 19 109/52 (71) 90 02/17/18 12:30 112 21 148/68 (94) 92 02/17/18 12:15 111 22 144/63 (90) 92 02/17/18 12:00 50 02/17/18 12:00 106 19 145/64 (91) 92 02/17/18 12:00 98.2 90 21 109/52 (71) 93 02/17/18 12:00 94 02/17/18 11:45 112 24 154/67 (96) 92 02/17/18 11:30 112 25 154/71 (98) 92 02/17/18 11:15 108 23 147/67 (93) 92 02/17/18 11:15 92 50 Intake & Output 02/18/18 02/18/18 07:00 19:00 Intake Total 1467 ml Output Total 2425 ml Balance -958 ml IV Total 1467 ml Output Urine Total 2425 ml Chest Tube Drainage Total 0 ml # Bowel Movements 0 Physical Exam CONSTITUTIONAL/GENERAL: This is an obese patient in the medical intensive care unit bed. No apparent distress. TUBES/LINES/DRAINS: Orotracheal tube; orogastric tube; right subclavian central line; bilateral chest tubes x2; peripheral IV; soft wrist restraints; sequential compressive devices. SKIN: No jaundice, rashes. Ecchymoses on upper extremities. No wounds seen anteriorly. Skin temperature appropriate. Not diaphoretic. EYES: Pupils equal and round. Unable to evaluate extraocular movements. Bilateral periorbital edema. No scleral icterus. No injection or drainage. ENT: Unable to evaluate hearing. Nose without bleeding or purulent drainage. Moist oral mucosa. NECK: Neck somewhat difficult to examine due to obesity and SQ emphysema. Trachea midline. CARDIOVASCULAR: Regular rate/rhythm without murmurs, gallops, or rubs. RESPIRATORY/CHEST: Bilateral chest tubes. Symmetric respirations on vent. Decreased air movement at bases. Scattered rhonchi bilaterally. GASTROINTESTINAL: Abdomen obese, large, soft. Active bowel sounds. GENITOURINARY: Without palpable bladder distension. Alexandre catheter in place. MUSCULOSKELETAL: Extremities without clubbing, cyanosis. Widespread edema vs SQ emphysema. No mottling. NEUROLOGICAL: Briefly opening eyes to tactile stimuli. Not tracking or following commands. PSYCHIATRIC: Appears calm. . Diagnostic Tests Laboratory Laboratory Tests Test 02/15/18 14:08 02/15/18 15:00 02/15/18 18:00 02/16/18 10:45 Blood Gas Puncture Site LT RADIAL Blood Gas Patient Temperature 98.6 Blood Gas HCO3 40 mmol/L (22-26) Blood Gas Base Excess 15.7 mmol/L (-2-2) Blood Gas Oxygen Saturation 94 % (90-100) Arterial Blood pH 7.52 (7.380-7.420) Arterial Blood Partial Pressure CO2 49 mmHg (38-42) Arterial Blood Partial Pressure O2 76 mmHG (61-120) Arterial Blood Oxygen Content 10.5 Vol % (12.0-20.0) Arterial Blood Carboxyhemoglobin 1.6 % (0-4) Arterial Blood Methemoglobin 0.7 % (0-2) Blood Gas Hemoglobin 7.9 G/DL (12.0-16.0) Oxygen Delivery Device VENTILATOR Blood Gas Ventilator Setting PRVC/AC Blood Gas Inspired Oxygen 50 % Urine Color LIGHT-YELLOW (YELLW/STRAW) Urine Turbidity CLEAR (CLEAR) Urine pH 8.5 (5.0-8.5) Urine Specific [place] 1.007 (1.002-1.035) Urine Protein TRACE mg/dL (NEG-TRACE) Urine Glucose (UA) NEG mg/dL (NEG) Urine Ketones NEG mg/dL (NEG) Urine Occult Blood MOD (NEG) Urine Nitrite NEG (NEG) Urine Bilirubin NEG (NEG) Urine Urobilinogen LESS THAN 2.0 MG/DL (LESS Urine Leukocyte Esterase NEG (NEG) Urine RBC 60 /hpf (0-3) Urine WBC 2 /hpf (0-5) Urine Hyaline Casts 11 /lpf (RARE) Urine Mucus FEW /lpf (OCC) Microscopic Urinalysis Comment CATH-CULT NOT IND Potassium Level 3.1 MEQ/L (3.5-5.1) 3.5 MEQ/L (3.5-5.1) White Blood Count 15.7 TH/MM3 (4.0-11.0) Red Blood Count 2.62 MIL/MM3 (4.00-5.30) Hemoglobin 7.3 GM/DL (11.6-15.3) Hematocrit 22.1 % (35.0-46.0) Mean Corpuscular Volume 84.3 FL (80.0-100.0) Mean Corpuscular Hemoglobin 27.7 PG (27.0-34.0) Mean Corpuscular Hemoglobin Concent 32.8 % (32.0-36.0) Red Cell Distribution Width 15.8 % (11.6-17.2) Platelet Count 569 TH/MM3 (150-450) Mean Platelet Volume 7.1 FL (7.0-11.0) Neutrophils (%) (Auto) 85.6 % (16.0-70.0) Lymphocytes (%) (Auto) 7.4 % (9.0-44.0) Monocytes (%) (Auto) 5.3 % (0.0-8.0) Eosinophils (%) (Auto) 1.5 % (0.0-4.0) Basophils (%) (Auto) 0.2 % (0.0-2.0) Neutrophils # (Auto) 13.5 TH/MM3 (1.8-7.7) Lymphocytes # (Auto) 1.2 TH/MM3 (1.0-4.8) Monocytes # (Auto) 0.8 TH/MM3 (0-0.9) Eosinophils # (Auto) 0.2 TH/MM3 (0-0.4) Basophils # (Auto) 0.0 TH/MM3 (0-0.2) CBC Comment DIFF FINAL Differential Comment Blood Urea Nitrogen 14 MG/DL (7-18) Creatinine 0.65 MG/DL (0.50-1.00) Random Glucose 197 MG/DL (74-106) Total Protein 6.8 GM/DL (6.4-8.2) Albumin 1.0 GM/DL (3.4-5.0) Calcium Level 8.4 MG/DL (8.5-10.1) Alkaline Phosphatase 343 U/L (45-117) Aspartate Amino Transf (AST/SGOT) 34 U/L (15-37) Alanine Aminotransferase (ALT/SGPT) 52 U/L (10-53) Total Bilirubin 0.3 MG/DL (0.2-1.0) Sodium Level 137 MEQ/L (136-145) Chloride Level 97 MEQ/L (98-107) Carbon Dioxide Level 34.6 MEQ/L (21.0-32.0) Anion Gap 5 MEQ/L (5-15) Estimat Glomerular Filtration Rate 92 ML/MIN (>89) Phosphorus Level 4.2 MG/DL (2.5-4.9) Magnesium Level 2.2 MG/DL (1.5-2.5) Test 02/17/18 06:27 02/18/18 08:15 White Blood Count 15.7 TH/MM3 (4.0-11.0) 16.6 TH/MM3 (4.0-11.0) Red Blood Count 2.83 MIL/MM3 (4.00-5.30) 2.85 MIL/MM3 (4.00-5.30) Hemoglobin 7.9 GM/DL (11.6-15.3) 7.9 GM/DL (11.6-15.3) Hematocrit 24.2 % (35.0-46.0) 24.2 % (35.0-46.0) Mean Corpuscular Volume 85.4 FL (80.0-100.0) 85.0 FL (80.0-100.0) Mean Corpuscular Hemoglobin 27.8 PG (27.0-34.0) 27.7 PG (27.0-34.0) Mean Corpuscular Hemoglobin Concent 32.5 % (32.0-36.0) 32.6 % (32.0-36.0) Red Cell Distribution Width 16.1 % (11.6-17.2) 16.2 % (11.6-17.2) Platelet Count 512 TH/MM3 (150-450) 449 TH/MM3 (150-450) Mean Platelet Volume 7.9 FL (7.0-11.0) 7.4 FL (7.0-11.0) Neutrophils (%) (Auto) 81.3 % (16.0-70.0) 78.1 % (16.0-70.0) Lymphocytes (%) (Auto) 6.6 % (9.0-44.0) 8.7 % (9.0-44.0) Monocytes (%) (Auto) 5.5 % (0.0-8.0) 6.1 % (0.0-8.0) Eosinophils (%) (Auto) 5.5 % (0.0-4.0) 6.6 % (0.0-4.0) Basophils (%) (Auto) 1.1 % (0.0-2.0) 0.5 % (0.0-2.0) Neutrophils # (Auto) 12.8 TH/MM3 (1.8-7.7) 12.9 TH/MM3 (1.8-7.7) Lymphocytes # (Auto) 1.0 TH/MM3 (1.0-4.8) 1.5 TH/MM3 (1.0-4.8) Monocytes # (Auto) 0.9 TH/MM3 (0-0.9) 1.0 TH/MM3 (0-0.9) Eosinophils # (Auto) 0.9 TH/MM3 (0-0.4) 1.1 TH/MM3 (0-0.4) Basophils # (Auto) 0.2 TH/MM3 (0-0.2) 0.1 TH/MM3 (0-0.2) CBC Comment AUTO DIFF DIFF FINAL Differential Comment AUTO DIFF CONFIRMED Toxic Granulation 1+ (NORMAL) Platelet Estimate HIGH (NORMAL) Platelet Morphology Comment NORMAL (NORMAL) Blood Urea Nitrogen 17 MG/DL (7-18) 13 MG/DL (7-18) Creatinine 0.65 MG/DL (0.50-1.00) 0.51 MG/DL (0.50-1.00) Random Glucose 178 MG/DL (74-106) 102 MG/DL (74-106) Calcium Level 8.8 MG/DL (8.5-10.1) 8.9 MG/DL (8.5-10.1) Phosphorus Level 3.9 MG/DL (2.5-4.9) Magnesium Level 2.3 MG/DL (1.5-2.5) Sodium Level 137 MEQ/L (136-145) 140 MEQ/L (136-145) Potassium Level 3.5 MEQ/L (3.5-5.1) 3.5 MEQ/L (3.5-5.1) Chloride Level 96 MEQ/L (98-107) 99 MEQ/L (98-107) Carbon Dioxide Level 33.3 MEQ/L (21.0-32.0) 35.3 MEQ/L (21.0-32.0) Anion Gap 8 MEQ/L (5-15) 6 MEQ/L (5-15) Estimat Glomerular Filtration Rate 92 ML/MIN (>89) 122 ML/MIN (>89) Prothrombin Time 9.9 SEC (9.8-11.6) Prothromb Time International Ratio 1.0 RATIO Result Diagram: 02/18/18 0815 02/18/18 0815 Microbiology Microbiology Date/Time Source Procedure Growth Status 02/17/18 18:00 Sputum Endotracheal Gram Stain - Final Resulted 02/17/18 18:00 Sputum Endotracheal Sputum Culture Pending Resulted 02/15/18 15:00 Sputum Endotracheal Gram Stain - Final Complete 02/15/18 15:00 Sputum Culture - Final S. Aureus Mrsa Complete Imaging Last 48 hours Impressions Chest X-Ray 02/17/18 0000 Signed Impressions: Service Date/Time: Saturday, February 17, 2018 04:00 - CONCLUSION: 1. Patchy alveolar disease characteristic of edema or pneumonia. There has been no significant change when compared to the prior exam. To Vaughn MD Procedures * 01/31/18 -Intubation/mechanical ventilation right subclavian * Central line placement * Bilateral chest tube placement * Transesophageal echo * 02/18/18 -tracheostomy * 02/18/18 -EGD with PEG tube placement . Assessment and Plan Disease Oriented Problem List: (1) PNA (pneumonia) Comment: MRSA + Enterobacter (2) Respiratory failure (3) ARDS (adult respiratory distress syndrome) (4) Sepsis Comment: MRSA (5) Anemia (6) Hypoalbuminemia (7) Bilateral pneumothoraces Comment: Recurrent and multiple pneumothoraces . (8) ARF (acute renal failure) Comment: REsolving (9) Encephalopathy Symptom Scale: (1) Pain 0-10 Scale: Unable to quantify Comment: No known prehospitalization pain syndromes. Current sources of discomfort might include orotracheal and orogastric intubations; vascular access lines; restraints; Alexandre catheter; chest tubes; prolonged bedbound status. (2) Dyspnea 0-10 Scale: Unable to quantify Comment: Patient with underlying pneumonia and bilateral pneumothoraces. Dyspnea currently managed with ventilatory support. (3) Encephalopathy 0-10 Scale: Unable to quantify Pertinent Non-Medical Issues Psychosocial: Has a male partner . She normally lives with him in a manufactured home. He is a smoker. Her 2 daughters are now down from [place] to help. Spiritual: Patient is [employer]. Solar Installation Manager visits would be appreciated. Legal: There are no advance directives. Without written designation of a healthcare surrogate, proxy decision making would fall to both adult daughters. Ethical issues impacting care: Patient is currently incapacitated to make her own medical decisions. It is unclear if/when she will become capacitated to do so. . Important Contacts Alona Rosenbaumig (daughter and co-health care proxy) [phone] Zenobia Clay (daughter and co-health care proxy) [phone] Brett Mackay (boyfriend -- NO DECISION MAKING RIGHTS unless there is written documentation saying otherwise) [phone] . Prognosis On the one hand, other than her morbid obesity, this patient has very few health problems and has managed to stay out of the hospital. Ordinarily, we would expect her to respond well to treatment and improve.. This patient declined incredibly quickly and has very severe respiratory disease in spite of the fact that she has no known underlying chronic respiratory illness.She has multiple pneumothoraces. She has developed Enterobacter pneumonia on top of her MRSA pneumonia. She has had persistent elevated WBCs and bandemia. It remains unclear if she will pull through this. It is becoming more apparent that she might require tracheostomy if ongoing aggressive care is desired. Given her relatively good healthcare condition just days before the onset of this illness, she certainly deserves a decent trial of aggressive care. . . Code Status: Alternative Code (Per discussion with two daughters on 02/11/18) Plan == Code Status: ALT CODE (no defibrillation; no chest compression) == Medical Decision Making: Patient is currently incapacitated to make her own healthcare decisions. It is unclear if/when she will recover capacity to do so. Since there is no written designation of healthcare surrogacy that we are aware of, proxy decision making would fall to her 2 adult children -- Alona Caballero and Zenobia Clay. They both have accepted this role. == Goals of medical treatment: Goals of therapy remain aggressive short of no chest compressions or defibrillation. Patient's daughters acting as healthcare proxy decision makers have elected to proceed with tracheostomy and PEG tube placement, scheduled for today 02/18. Reviewed likely illness trajectory with anticipated prolonged hospitalization and rehab. Reviewed that patient remains at a very high risk of further complications, continued decline and . Family verbalized understanding. == Symptoms: * Dyspnea: Patient with underlying pneumonia and bilateral pneumothoraces. Dyspnea currently managed with ventilatory support. Bilateral chest tubes in place. Patient not tolerating weaning trials, pending tracheostomy as per family's request. * Pain: No known pre-hospitalization pain syndromes. Current sources of discomfort might include orotracheal and orogastric intubations; vascular access lines; restraints; Alexandre catheter; chest tubes; prolonged bedbound status. Currently on fentanyl, patient appears comfortable. No further recommendations at this time. * Encephalopathy: Patient is currently sedated but underlying encephalopathy probably secondary to her sepsis. == Palliative care will continue to follow up as needed to assist with symptom management and to further clarify goals of medical treatment as the clinical course evolves. Family receptive to this. . Time Spent Total Floor Time (mins): 26 (Total time to include review medical records, physical exam, goals of care conversation with patient's daughters and sister.) >50% Counseling/Coord of Care: Yes Attestation To help prompt me to consider important information that might be impacting today's encounter and assessment, information from prior notes written by myself or my colleagues may have been "brought forward" into today's note. My signature on this note, however, is an attestation that I personally performed the exam, history, and/or decision-making noted today, and, unless otherwise indicated, the interactions with patient, family, and staff as well as the review of records all occurred today. I also attest that the listed assessment and stated plan reflect my best clinical judgment today based on the combination of historical information, prior notes, and today's exam/ interactions. When time spent is documented, it refers only to time spent today by the signer, or if indicated, combined time spent today by collaborating physician/nurse practitioner. Myra Delatorre Feb 18, 2018 11:15
[2018-02-18] MEDS ORDERED: ROCURONIUM INJ 50 MG/5 ML VIAL IV PUSH ONE (11:30)
[2018-02-18] MEDS ORDERED: MIDAZOLAM HCL 5 MG/ML VIAL (1 ML) IV PUSH ONE (11:30)
--- NOTE | 2018-02-18 11:30 | HHI.CCPN ---
Subjective Remarks/Hospital Course 01/30: 62-year-old female presents for evaluation of increasing shortness of breath and chest pain. She reports 1 week of coughing 3 days of pain in her left chest which radiates to her back, which prompted the visit to the emergency room yesterday. She rates her pain a 6 out of 10. She reports fevers , chills, fatigue, mild nausea. She denies any abdominal pain, vomiting. Patient denies any significant past medical history. Symptom onset was gradual , symptom severity is severe, there are no alleviating factors. Patient states that she has been taking the azithromycin antibiotics that were prescribed to her. She denies any current or historical tobacco use. 01/31: Intubated at 1 AM this morning and placed on mechanical ventilation due to worsening respiratory distress. Currently sedated, orally intubated on mechanical ventilation. 02/01: Remains sedated, orally intubated on mechanical ventilation. Went into A. fib with RVR this morning. Loaded with amiodarone, started on amiodarone drip and given digoxin 0.5 mg IV 02/02: Remains sedated, orally intubated on mechanical ventilation. Right sided pigtail catheter in place with 1+ air leak. Converted to sinus rhythm overnight. Remains on amiodarone gtt. 02/03: Remains sedated, orally intubated on mechanical ventilation. 1+ air leak and right sided pigtail catheter. Tolerating tube feeds. Remains on amiodarone gtt. 02/04: Noted to have pneumothorax on the left side this morning on routine chest x -ray which appeared to be under tension. Right sided pigtail catheter placed by Dr. Peña with reexpansion of lung. Patient remains sedated, orally intubated on mechanical ventilation. 1+ airleak and bilateral chest tubes noted. 02/05: Afebrile. Persistent leukocytosis, bilateral chest tubes continue on wall suction. Chest x-ray pending this a.m.. Patient scheduled for GRANT today, discussed with Dr. Vázquez. Patient continues on amiodarone infusion with sinus rhythm. Postprocedure GRANT,this afternoon, the patient became extremely agitated, noted significant increase in subcu emphysema, peak pressures 50's, O2 saturation significantly decreased to 78-80 %. Stat chest x-ray performed patient was noted to have a significant right pneumothorax. 20 Italian right chest tube placement emergently, with increase in O2 saturation decrease in peak inspiratory pressures. 02/06: Afebrile. Patient with persistent bilateral pneumothoraces, with diffuse bilateral infiltrates and massive SQ emphysema. O2 requirement significantly increased during the night, PIP 38-44. 28 F chest tubes were placed bilaterally with resolution of left pneumothorax and minimization of right pneumothorax, and improved oxygenation. 02/07: TMax 100.1 Chest tubes remain on suction. Resolution of pneumothoraces, continued extensive SQ emphysema. Persistent leukocytosis noted. FiO2 weaned to 50%. 02/08: Late entry note patient seen at 1250. Attempts at CPAP trials, unsuccessful this morning. FiO2 decreased 50%, with adequate oxygenation. 02/09: Afebrile. The patient was transitioned to CPAP trials with pressure support of 22/8. FiO2 currently at 55% continuing to wean. Patient noted with positive fluid balance Lasix 40 mg IV now, patient is initiated on Lasix 40 daily. Patient with positive air leak in chest tubes #1-28 Italian right and #3 pigtail left, both at 2+. Sedation vacation initiated early this a.m. patient neurologically intact. Patient continues on moderate sedation for CPAP to maintain ventilator synchrony plan for transitioning to Precedex. Noted improvement with subcu emphysema. Extensive discussion with patient's daughter regarding a possibility of a tracheostomy if unsuccessful with ventilator weaning process. 02/10: Subcutaneous emphysema has worsened overnight per RN who took care of the patient yesterday, now extending to the upper chest left neck and to the left side of the face including left eyelids. No increase in FiO2 requirement currently on 55%. I have reduced inspiratory pressure from 32 to 28. FiO2 reduced to 50%. Will check a repeat chest x-ray in afternoon if needed. Will request CT surgical evaluation for persistent subcutaneous emphysema despite 2 chest tubes bilaterally 02/11 Patient is sedated with Diprivan, Versed and Fentanyl drips. T: 101.[address] guided chest tube placement by IR today 02/12 No events overnight. Remains sedated and intubated. Afebrile. On PC/AC with PEEP: 8 and FIO2 40%. 02/13 Patient remains intubated and heavily sedated. Afebrile. Repeat CT chest yesterday showed loculated anterior left pneumothorax has resolved. A small left pleural effusion remains present and the 2 left chest tubes appear to be in good position to drain the fluid. Significant improvement in the bilateral chest wall subcutaneous emphysema. 02/14 Patient remains sedated and intubated. Afebrile. On Bumex drip 0.5mg/hr. 02/15 Patient remains intubated and sedated, On Bumex drip 0.5mg/hr with good urine output. T:100.1 02/16 Patient remains sedated and intubated. Off Bumex drip. Afebrile. 02/17 Remains intubated and sedated with Diprivan and Fentanyl drips. Afebrile. For trach tomorrow. 02/18: Trach anticipated for today. Remains sedated. Family at the bedside updated. Coags are normal Objective Vital Signs Date Time Temp Pulse Resp B/P (MAP) Pulse Ox O2 Delivery O2 Flow Rate FiO2 02/18/18 10:12 95 50 02/18/18 06:00 85 02/18/18 04:00 98.2 16 110/58 (75) Intake and Output 02/18/18 02/18/18 02/19/18 08:00 16:00 00:00 Intake Total 1467 ml Output Total 2425 ml Balance -958 ml Result Diagram: 02/18/18 0815 02/18/18 0815 Other Results Microbiology Date/Time Source Procedure Growth Status 02/15/18 15:00 Sputum Endotracheal Gram Stain - Final Complete 02/15/18 15:00 Sputum Culture - Final S. Aureus Mrsa Complete Imaging Last Impressions Chest X-Ray 02/17/18 0000 Signed Impressions: Service Date/Time: Saturday, February 17, 2018 04:00 - CONCLUSION: 1. Patchy alveolar disease characteristic of edema or pneumonia. There has been no significant change when compared to the prior exam. To Vaughn MD Chest CT 02/12/18 1334 Signed Impressions: Service Date/Time: Monday, February 12, 2018 14:07 - CONCLUSION: 1. The loculated anterior left pneumothorax has resolved. A small left pleural effusion remains present and the 2 left chest tubes appear to be in good position to drain the fluid. 2. Significant improvement in the bilateral chest wall subcutaneous emphysema. 3. Stable severe kinking of the large bore right chest tube. This chest tube also extends into the fissure. Given these 2 findings, this likely not providing any significant suction. Consider removal. 4. Stable severe bilateral airspace consolidation with multifocal areas of cavitation. Michael Perea MD Liver Ultrasound 02/11/18 0000 Signed Impressions: Service Date/Time: Sunday, February 11, 2018 09:34 - CONCLUSION: Nondiagnostic examination CT scan is recommended for further evaluation if clinically indicated. To Vaughn MD Neck CT 02/10/18 0000 Signed Impressions: Service Date/Time: Saturday, February 10, 2018 14:57 - CONCLUSION: 1. Extensive subcutaneous edema in the neck which has dissected cephalad from the chest and is worse on the left side. 2. Support apparatus as above. See chest CT report for evaluation of lungs. 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 No adenopathy. Everett Ng MD Procedures 02/05- Right emergent 20 F chest tube placement 02/06: Left 28 Italian chest tube placement, right chest tube replacement 28 Italian Objective Remarks HEENT/ Neuro: Sedated, orally intubated, Pallor present, no icterus, tongue/ mucosa moist SQ emphysema resolved mostly. Neck: No JVD. Left side of the neck with significant subcutaneous emphysema Chest/Pulm: on mech vent, air entry decreased bilaterally at bases, scattered rhonchi bilaterally. Bilateral pigtail catheters insitu., and 28F chest tubes bilaterally to -40cm H20. CVS: S1-S2 regular, no murmur GI/abdomen: soft, nontender, bowel sounds hypoactive Neuro: RASS -2, currently on fentanyl, propofol and Versed infusions. Patient moving extremities 4 Extremities: warm bilaterally, 1+bilateral peripheral edema upper and lower extremities A/P Assessment and Plan Neuro: Neuro checks per ICU protocol propofol and fentanyl to maintain ventilator synchrony. Daily sedation vacation Pulm: Acute hypoxemic respiratory failure MRSA pneumonia COPD Persistent bilateral pneumothorax, significant subcutaneous emphysema ?Post Influenza pneumonia Continue vent support keep sats >92%, Trach today 02/18 On PRVC RR 16, TV 500, IT:1.0, PEEP:8, FIO2: 50%. DuoNeb scheduled and when necessary SBT daily as bernarda. Bilateral pigtail catheters and [address] in place(4 total) Repeat CT chest 02/12 The loculated anterior left pneumothorax has resolved. the 2 left chest tubes appear to be in good position to drain the fluid. Significant improvement in the bilateral chest wall subQ mphysema. Stable severe bilateral airspace consolidation with multifocal areas of cavitation. -Thoracic surgery is following- Dr. Thornton CXR: No significant changes b/l airspace disease Renal: Acute kidney injury-resolved Dehydration-resolved -Maintain Alexandre -Monitor renal function, I/O's, electrolytes replacement per protocol. Cardiovascular: A. fib with RVR (converted to NSR 02/02) -02/05 amiodarone infusion discontinued. - 02/05 GRANT -no valvular vegetations. EF 55-60%, trace MVR, mild TVR, PAP 35 Monitor HR and BP keep MAP>65mmHfg On Cardizem 60mg Q6, Lopressor 25mg Q12 GI Elevated LFT;s ( trending down) Hepatitis profile: Negative US liver: non-diagnostic study -Tube feeds Jevity 1.5 60 cc/hr at goal,- On Pepcid 20mg BID Consulted GI for PEG tube placement ID: MRSA, Enterobacter pneumonia MRSA Bacteremia - Antibiotics per ID. On Zyvox. Completed treatment for Enterobacter -Monitor for signs of infections ( Fever, WBC) -ID- Dr. Singleton following. 02/10 Sputum: MRSA 02/10 BC: NGTD Endocrine: Hyperglycemia Medium scale sliding scale insulin dosing Glucose monitoring per ICU protocol DVT GI prophylaxis - Teds SCDs - Subcutaneous heparin - Pepcid Lines: peripheral IV's. Palliative care is following Code status: Alternative code Level 3 Sarita Rodriguez MD Feb 18, 2018 11:30
[2018-02-18] MEDS ORDERED: PROPOFOL 200 MG/20 ML AMP IV ONE (12:00)
--- NOTE | 2018-02-18 12:08 | PD.PROCEDR ---
Procedure Note Procedure Procedure: Fiberoptic Bronchoscopy for percutaneous tracheostomy Indications: Percutaneous tracheostomy placement, due to failure to wean Consent: Obtained from Mr. Sinha Anesthesia: 5 mg IV Versed, 100 mcg IV fentanyl, 50 mg IV rocuronium Description of the Procedure: The patient was sedated and mechanically ventilated. The patient was placed on 100% FIO2 and a volume control mode of ventilation. The fiberoptic bronchoscopy was inserted via 8.0 ETT. The trachea, right and left mainstem bronchi, and sub-segmental bronchi were evaluated. The endobronchial anatomy was normal. Anterior percutaneous Blue Rhino tracheostomy placement was visualized on video monitor using bronchoscopy. See separate tracheostomy note from Dr. Nj. The patient tolerated the procedure well with no hemodynamic instability or hypoxia. There were no immediate complications noted. At the conclusion of the procedure, the patient was placed back on their pre-procedure ventilatory settings. There was minimal EBL. A chest x-ray has been ordered. Sarita Rodriguez MD Feb 18, 2018 12:08
--- NOTE | 2018-02-18 12:48 | RADRPT ---
EXAM DATE/TIME: 02/18/2018 12:14 [facility] COMPARISON: CHEST SINGLE AP, February 17, 2018, 4:00. INDICATIONS : Post tracheostomy placement MEDICAL HISTORY : sepsis SURGICAL HISTORY : Gastric bypass. Tonsillectomy. chest tubes x 4 ENCOUNTER: Subsequent ACUITY: 2 weeks PAIN SCORE: Non-responsive. LOCATION: Bilateral chest FINDINGS: Portable AP view of the chest demonstrates a normal-sized cardiac silhouette. Tracheostomy is in the midline overlying the tracheal air shadow. There are 2 chest tubes present within each hemithorax. No pneumothorax is identified. There are stable pleural-based opacities bilaterally as well as lower chris ng zone airspace consolidation. CONCLUSION: 1. Tracheostomy is in the midline overlying the tracheal air shadow and no pneumothorax is visualized . 2. Stable bilateral pleural based opacities and bilateral lower lung zone airspace consolidation. Michael Preea MD on February 18, 2018 at 12:38 Board Certified Radiologist. This report was verified electronically.
[2018-02-18] MEDS: POTASSIUM CHLOR 20 MEQ PREMIX 100 ML IV PRN (14:19)
[2018-02-18] MEDS: cefTRIAXone INJ 1,000 MG in SODIUM CHLORIDE 0.9% INJ 100 ML IV ONE (14:36)
--- NOTE | 2018-02-18 15:22 | GIPROC ---
[facility] [address] [facility]. [facility], [address] EGD PROCEDURE REPORT EXAM DATE: 02/18/2018 PATIENT NAME: Susan Tinoco MR #: [id number] BIRTHDATE: 1955 ATTENDING: Lisa Max MD ORDER #: [id number] TRANSFER WORKER: Zenobia Biggs and Oscar Terry STATUS: inpatient INDICATIONS: The patient is a 62 yr old female here for an EGD due to dysphagia, failure to thrive , attempted peg PROCEDURE PERFORMED: EGD, diagnostic MEDICATIONS: Per Anesthesia and None. TOPICAL ANESTHETIC: none CONSENT: The patient understands the risks and benefits of the procedure and understands that these risks include, but are not limited to: sedation, allergic reaction, infection, perforation and/or bleeding. Alternative means of evaluation and treatment include, among others: physical exam, x-rays, and/or surgical intervention. The patient elects to proceed with this endoscopic procedure. medical equipment was checked for proper function. Hand hygiene and appropriate measures for infection prevention was taken. After the risks, benefits and alternatives of the procedure were thoroughly explained, Informed consent was verified, confirmed and timeout was successfully executed by the treatment team. The patient was anesthetized with topical anesthesia and the Pentax [id number] endoscope was introduced through the mouth and advanced to the proximal jejunum. Retroflexion was not performed The gastroscope was then slowly withdrawn and removed. S/ gastric bypass transillumination done, not seen, peg cannot be placed endoscopically. ADVERSE EVENTS: There were no complications. IMPRESSIONS: 1. S/ gastric bypass transillumination done, not seen, peg cannot be placed endoscopically 2. Retroflexion was not performed RECOMMENDATIONS: Ngt start tf consult surgery for j tube placement PATIENT CONDITION: stable DISPOSITION: Inpatient REPEAT EXAM: Return as needed for EGD Lisa Max MD eSigned: Lisa Max MD 02/18/2018 3:22 PM cc:
--- NOTE | 2018-02-18 16:12 | RADRPT ---
EXAM DATE/TIME: 02/18/2018 15:47 [facility] COMPARISON: CHEST SINGLE AP, February 18, 2018, 12:14. INDICATIONS : NG tube placement. MEDICAL HISTORY : Sepsis. SURGICAL HISTORY : Gastric bypass. Tonsillectomy. chest tubes x 4. ENCOUNTER: Initial ACUITY: 1 day PAIN SCORE: Non-responsive. LOCATION: Bilateral abdomen. FINDINGS: There is a suction type NGT with tip in the region of the GE junction. No dilated or loops of bowel a re noted in the visualized upper abdomen. Redemonstration of patchy bilateral parenchymal opacities i n the lung bases. CONCLUSION: 1. Suction type NGT in the region of the GE junction. Romeo Espinoza MD on February 18, 2018 at 16:08 Board Certified Radiologist. This report was verified electronically.
--- NOTE | 2018-02-18 19:31 | MP ---
cc: Kevin Nj MD DATE OF OPERATION: 02/18/2018 PROCEDURE: Percutaneous tracheostomy placement. PREOPERATIVE DIAGNOSIS: Ventilator-dependent respiratory failure with bilateral pneumothoraces. POSTOPERATIVE DIAGNOSIS: Ventilator-dependent respiratory failure with bilateral pneumothoraces. ANESTHESIA: IV sedation. SURGEON: Kevin Nj MD PBX REPAIRER: Sarita Rodriguez MD COMPLICATIONS: None. DRAINS: None. SPECIMEN: None. Please see Dr. Rodriguez's dictation for the bronchoscopic portion of the procedure. DESCRIPTION OF PROCEDURE: The patient was placed in the supine position with the neck hyperextended. Timeout was taken confirming the correct patient, site and procedure to be performed. The neck was prepped and draped. Dr. Rodriguez performed diagnostic and therapeutic bronchoscopy. He also ensured direct visualization during the entire procedure. The endotracheal tube was brought back to 18 cm and the undersigned then injected the neck with local anesthetic and made a small transverse incision. The 18-gauge needle with the angiocatheter was then passed between the tracheal rings into the trachea. The needle was withdrawn and a guidewire passed down the angiocatheter and was seen to pass toward the thiago. The angiocatheter was removed. A tracheal punch was used to dilate the tract and following this, the white catheter guide and Blue Rhino were passed over the guidewire easily. This was seen to enter into the trachea without difficulty. The Blue Rhino was removed and the 28 Mongolian tracheostomy guide with a #8 percutaneous tracheostomy was passed over the white catheter guide and green guidewire. The entire complex was seen to pass into the trachea. The green guidewire, white catheter guide and 28 Mongolian tracheostomy guide were all removed together. Dr. Rodriguez then quickly went down the tracheostomy tube to confirm that the tracheostomy was indeed in the trachea. The thiago was visualized. The balloon was inflated and the obturator placed inside the catheter. The circuit was switched over to the tracheostomy tube. Four 2-0 Prolene sutures were used to secure the tracheostomy tube in place. Velcro straps were placed behind the neck and a tracheostomy dressing was applied. A stat chest x-ray was obtained, which demonstrated no evidence of pneumothorax and stable tracheostomy placement. The patient tolerated the procedure well. MD SO Chao/FIDE , 07:16 PM , 07:30 PM
--- NOTE | 2018-02-18 20:08 | HHI.IDPN ---
Subjective Subjective Remarks remains on vent, 60% FiO2 CTs x 4, no airleak, no drainage afebrile sp trach PEG attempted, but theyu could not get it 2/2 prior gastric bypass intermittent low grade fevers Antibiotics Zyvox IV Lines Line sites with no e.o infection Past Medical History Gastric bypass Tonsillectomy Allergies: Coded Allergies: No Known Allergies (Unverified , 01/30/18) Objective . Vital Signs Date Time Temp Pulse Resp B/P (MAP) Pulse Ox O2 Delivery O2 Flow Rate FiO2 02/18/18 16:56 100 75 02/18/18 16:00 99.3 94 20 116/56 (76) 96 02/18/18 16:00 70 02/18/18 12:17 100 100 02/18/18 12:17 100 80 02/18/18 12:00 100 02/18/18 12:00 98.6 92 26 144/70 (94) 92 02/18/18 10:12 95 50 02/18/18 08:00 50 02/18/18 08:00 98.5 84 16 121/58 (79) 93 02/18/18 06:00 85 02/18/18 04:06 96 50 02/18/18 04:00 98.2 81 16 110/58 (75) 89 02/18/18 04:00 81 02/18/18 04:00 50 02/18/18 02:00 83 02/18/18 00:27 93 50 02/18/18 00:00 50 02/18/18 00:00 103 02/18/18 00:00 98.9 103 22 175/82 (113) 93 02/17/18 22:00 107 02/17/18 20:24 93 50 02/18/18 02/18/18 02/19/18 15:00 23:00 07:00 Intake Total 200 ml 950 ml Output Total 1200 ml Balance 200 ml -250 ml IV Total 200 ml 840 ml Tube Irrigant 60 ml Other 50 ml Output Urine Total 1200 ml # Bowel Movements 0 . Laboratory Tests Test 02/17/18 06:27 02/18/18 08:15 White Blood Count 15.7 TH/MM3 16.6 TH/MM3 Red Blood Count 2.83 MIL/MM3 2.85 MIL/MM3 Hemoglobin 7.9 GM/DL 7.9 GM/DL Hematocrit 24.2 % 24.2 % Mean Corpuscular Volume 85.4 FL 85.0 FL Mean Corpuscular Hemoglobin 27.8 PG 27.7 PG Mean Corpuscular Hemoglobin Concent 32.5 % 32.6 % Red Cell Distribution Width 16.1 % 16.2 % Platelet Count 512 TH/MM3 449 TH/MM3 Mean Platelet Volume 7.9 FL 7.4 FL Neutrophils (%) (Auto) 81.3 % 78.1 % Lymphocytes (%) (Auto) 6.6 % 8.7 % Monocytes (%) (Auto) 5.5 % 6.1 % Eosinophils (%) (Auto) 5.5 % 6.6 % Basophils (%) (Auto) 1.1 % 0.5 % Neutrophils # (Auto) 12.8 TH/MM3 12.9 TH/MM3 Lymphocytes # (Auto) 1.0 TH/MM3 1.5 TH/MM3 Monocytes # (Auto) 0.9 TH/MM3 1.0 TH/MM3 Eosinophils # (Auto) 0.9 TH/MM3 1.1 TH/MM3 Basophils # (Auto) 0.2 TH/MM3 0.1 TH/MM3 CBC Comment AUTO DIFF DIFF FINAL Differential Comment AUTO DIFF CONFIRMED Toxic Granulation 1+ Platelet Estimate HIGH Platelet Morphology Comment NORMAL Laboratory Tests Test 02/17/18 06:27 02/18/18 08:15 Blood Urea Nitrogen 17 MG/DL 13 MG/DL Creatinine 0.65 MG/DL 0.51 MG/DL Random Glucose 178 MG/DL 102 MG/DL Calcium Level 8.8 MG/DL 8.9 MG/DL Phosphorus Level 3.9 MG/DL Magnesium Level 2.3 MG/DL Sodium Level 137 MEQ/L 140 MEQ/L Potassium Level 3.5 MEQ/L 3.5 MEQ/L Chloride Level 96 MEQ/L 99 MEQ/L Carbon Dioxide Level 33.3 MEQ/L 35.3 MEQ/L Anion Gap 8 MEQ/L 6 MEQ/L Estimat Glomerular Filtration Rate 92 ML/MIN 122 ML/MIN Microbiology Date/Time Source Procedure Growth Status 02/17/18 18:00 Sputum Endotracheal Gram Stain - Final Resulted 02/17/18 18:00 Sputum Endotracheal Sputum Culture - Preliminary NO GROWTH IN 24 HOURS. Resulted Imaging Last Impressions Chest X-Ray 02/18/18 0000 Signed Impressions: Service Date/Time: Sunday, February 18, 2018 12:14 - CONCLUSION: 1. Tracheostomy is in the midline overlying the tracheal air shadow and no pneumothorax is visualized. 2. Stable bilateral pleural based opacities and bilateral lower lung zone airspace consolidation. Michael Perea MD Abdomen X-Ray 02/18/18 0000 Signed Impressions: Service Date/Time: Sunday, February 18, 2018 15:47 - CONCLUSION: 1. Suction type NGT in the region of the GE junction. Romeo Espinoza MD Chest CT 02/12/18 1334 Signed Impressions: Service Date/Time: Monday, February 12, 2018 14:07 - CONCLUSION: 1. The loculated anterior left pneumothorax has resolved. A small left pleural effusion remains present and the 2 left chest tubes appear to be in good position to drain the fluid. 2. Significant improvement in the bilateral chest wall subcutaneous emphysema. 3. Stable severe kinking of the large bore right chest tube. This chest tube also extends into the fissure. Given these 2 findings, this likely not providing any significant suction. Consider removal. 4. Stable severe bilateral airspace consolidation with multifocal areas of cavitation. Michael Perea MD Liver Ultrasound 02/11/18 0000 Signed Impressions: Service Date/Time: Sunday, February 11, 2018 09:34 - CONCLUSION: Nondiagnostic examination CT scan is recommended for further evaluation if clinically indicated. To Vaughn MD Neck CT 02/10/18 0000 Signed Impressions: Service Date/Time: Saturday, February 10, 2018 14:57 - CONCLUSION: 1. Extensive subcutaneous edema in the neck which has dissected cephalad from the chest and is worse on the left side. 2. Support apparatus as above. See chest CT report for evaluation of lungs. 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 No adenopathy. Everett Ng MD Physical Exam CONSTITUTIONAL/GENERAL: On the vent SKIN: No jaundice, rashes, or lesions. Ecchymoses on upper extremities. Skin temperature appropriate. generalized edema previous Sq emphysema resolved HEAD: Atraumatic. Normocephalic. EYES: Pupils equal and round and reactive. No scleral icterus. No injection or drainage. ENT: No nasal discharge, orally intubated NECK: Supple, nontender. CARDIOVASCULAR: Regular rate and rhythm without murmurs, gallops, or rubs. RESPIRATORY/CHEST: Symmetric, unlabored respirations. Rhonchi b/l. CTx2 on R and CT x 2 on the L GASTROINTESTINAL: Abdomen soft, nondistended. Obese. Mild grimacing during palpation, not guarding. GENITOURINARY: Without palpable bladder distension. Alexandre catheter in place. MUSCULOSKELETAL: Extremities without clubbing, cyanosis, + 3 diffuse edema. . NEUROLOGICAL: sedated does noty track, eyes opened intermittently responsive with eye opening not following commands not tracking PSYCHIATRIC: appears calm LINE: no evidence of infection Assessment & Plan Remarks IMPRESSION MRSA PNA Multiple b/l pneumothoraces ? postinfluenza PNA Loculated hydropneumothorax: ? empyema Acute VDRF not weaning ; High grade , sustained MRSA bacteremia GRANT negative Severe leukocytosis and bandemia New PNA, Enterobacter (panS) along with MRSA Empyema and multiple cavitary lesions - essentaially necrotizing PNA - no e/o endocarditis - CTS not planning to do any sx PLAN fu P sputum ( neg @ 1 day) Continue Zyvox. Monitor Hb, platelets and HCO3. will repeat CT at some point this week Carlene Singleton MD Feb 18, 2018 20:08
--- NOTE | 2018-02-18 20:38 | HHI.PR ---
Subjective Remarks 62 YO Female with VDRF,PTx, 4 Chest tubes 2 chest tubes have airleak Sedated with Fentanyl On Vent Had Trach done PEG could't be done due to previous Gastric bypass Objective Vital Signs Vital Signs Date Time Temp Pulse Resp B/P (MAP) Pulse Ox O2 Delivery O2 Flow Rate FiO2 02/18/18 16:56 100 75 02/18/18 16:00 99.3 94 20 116/56 (76) 96 02/18/18 16:00 70 02/18/18 12:17 100 100 02/18/18 12:17 100 80 02/18/18 12:00 100 02/18/18 12:00 98.6 92 26 144/70 (94) 92 02/18/18 10:12 95 50 02/18/18 08:00 50 02/18/18 08:00 98.5 84 16 121/58 (79) 93 02/18/18 06:00 85 02/18/18 04:06 96 50 02/18/18 04:00 98.2 81 16 110/58 (75) 89 02/18/18 04:00 81 02/18/18 04:00 50 02/18/18 02:00 83 02/18/18 00:27 93 50 02/18/18 00:00 50 02/18/18 00:00 103 02/18/18 00:00 98.9 103 22 175/82 (113) 93 02/17/18 22:00 107 I/O 02/17/18 02/17/18 02/17/18 02/18/18 02/18/18 02/18/18 07:00 15:00 23:00 07:00 15:00 23:00 Intake Total 2786 ml 1467 ml 200 ml 950 ml Output Total 1200 ml 2425 ml 1200 ml Balance 1586 ml -958 ml 200 ml -250 ml IV Total 2128 ml 1467 ml 200 ml 840 ml Tube Feeding 658 ml Tube Irrigant 60 ml Other 50 ml Output Urine Total 1200 ml 2425 ml 1200 ml Chest Tube Drainage Total 0 ml 0 ml # Bowel Movements 0 0 0 Result Diagram: 02/18/1815 02/18/1815 Objective Remarks GENERAL: WBWN Female, on Vent, sedated SKIN: Warm and dry. HEAD: Normocephalic. EYES: No scleral icterus. No injection or drainage. NECK: Supple, trachea midline. No JVD or lymphadenopathy. CARDIOVASCULAR: Regular rate and rhythm without murmurs, gallops, or rubs. RESPIRATORY: Breath sounds equal bilaterally. No accessory muscle use. [address] SQ Emphysema. GASTROINTESTINAL: Abdomen soft, non-tender, nondistended. MUSCULOSKELETAL: No cyanosis, or edema. BACK: Nontender without obvious deformity. No CVA tenderness. A/P Assessment and Plan VDRF Post Influenza Pn MRSA PTX PLAN: Cont Vent support Cont Abx TF Sedation with Fentanyl. Dru Hahn MD Feb 18, 2018 20:38
[2018-02-19] VITALS (30 sets, daily range): BP systolic 93–181; BP diastolic 50–87; PULSE 84–120; RESP 20–26; TEMP 98.3–100.1; O2SAT 90–100
[2018-02-19] MEDS: LINEZOLID 600 MG PREMIX 300 ML IV SCH ×2 (00:19→12:44)
[2018-02-19] MEDS: METOPROLOL TARTRATE 25 MG TAB PO SCH ×2 (00:19→12:52)
[2018-02-19] MEDS: PROPOFOL 1000 MG/100 ML IV PRN ×6 (02:07→22:04)
[2018-02-19] MEDS: CHLORHEXIDINE GLUCONATE 2 % 1 PACK (2 CLOTHS) TOP SCH (04:00)
[2018-02-19] MEDS: INSULIN ASPART SUPPLEMENTAL SCALE SQ SCH ×3 (05:25→17:47)
[2018-02-19] MEDS: DILTIAZEM HCL 30 MG TAB PO SCH ×5 (05:25→18:56)
[2018-02-19] MEDS: DOCUSATE SODIUM 50 MG/SENNA 8.6 MG TAB PO SCH ×2 (07:58→21:32)
[2018-02-19] MEDS: FAMOTIDINE 20 MG TAB PO SCH ×2 (07:58→21:32)
[2018-02-19] MEDS: ASPIRIN 81 MG CHEW TAB CHEW SCH (07:59)
[2018-02-19] MEDS: SODIUM CHLORIDE 0.9% FLUSH 10 ML FLUSH IV FLUSH SCH ×2 (07:59→21:00)
[2018-02-19] MEDS: CHLORHEXIDINE 0.12% (ORAL KIT) 15 ML CUP MT SCH ×2 (07:59→21:31)
[2018-02-19] MEDS: fentaNYL 2,500 MCG/NS 250 ML IV PRN ×2 (07:59→18:23)
[2018-02-19] MEDS: hydrALAZINE HCL 20 MG/ML VIAL IV PUSH PRN (08:09)
[2018-02-19] MEDS: ACETAMINOPHEN 325 MG TAB PO PRN (08:09)
--- NOTE | 2018-02-19 13:03 | HHI.IDPN ---
Subjective Subjective Remarks remains on vent, up to 65% FiO2, PEEP 8 + fever up to 101 Intermittently low BP not on pressors CTs x 4, no airleak, no drainage sp trach PEG was attempted, but theyu could not get it 2/2 prior gastric bypass intermittent low grade fevers Antibiotics Zyvox IV Lines Line sites with no e.o infection Past Medical History Gastric bypass Tonsillectomy Allergies: Coded Allergies: No Known Allergies (Unverified , 01/30/18) Objective . Vital Signs Date Time Temp Pulse Resp B/P (MAP) Pulse Ox O2 Delivery O2 Flow Rate FiO2 02/19/18 12:00 65 02/19/18 12:00 99.0 109 22 143/63 (89) 96 02/19/18 12:00 109 02/19/18 10:30 60 02/19/18 10:28 92 65 02/19/18 10:00 113 22 143/64 (90) 95 02/19/18 10:00 114 02/19/18 09:00 99.1 120 26 130/58 (82) 95 02/19/18 08:33 91 55 02/19/18 08:15 70 02/19/18 08:00 100.1 114 26 181/74 (109) 90 02/19/18 08:00 55 02/19/18 08:00 114 02/19/18 07:51 93 55 02/19/18 07:51 55 02/19/18 06:00 113 02/19/18 04:09 94 55 02/19/18 04:00 100.0 97 20 101/56 (71) 93 02/19/18 04:00 97 02/19/18 04:00 60 02/19/18 03:30 97 20 94/51 (65) 92 02/19/18 03:00 99 20 95/52 (66) 92 02/19/18 02:31 101 20 93/50 (64) 92 02/19/18 02:30 101 20 91 02/19/18 02:00 111 22 131/87 (102) 94 02/19/18 02:00 111 02/19/18 01:30 111 24 119/65 (83) 97 02/19/18 01:00 103 21 117/59 (78) 94 02/19/18 00:30 99 20 98/55 (69) 94 02/19/18 00:22 94 55 02/19/18 00:00 60 02/19/18 00:00 100 02/19/18 00:00 99.8 100 20 97/52 (67) 94 02/18/18 23:30 101 20 92/50 (64) 93 02/18/18 23:00 103 20 102/51 (68) 92 02/18/18 22:30 105 20 98/52 (67) 91 02/18/18 22:00 116 02/18/18 22:00 116 23 151/65 (93) 92 02/18/18 21:30 112 26 168/74 (105) 93 02/18/18 21:00 108 23 165/76 (105) 98 02/18/18 20:00 97 02/18/18 20:00 60 02/18/18 20:00 99.9 97 20 97/52 (67) 96 02/18/18 16:56 100 75 02/18/18 16:00 99.3 94 20 116/56 (76) 96 02/18/18 16:00 70 02/19/18 02/19/18 02/20/18 15:00 23:00 07:00 Intake Total 310 ml Balance 310 ml IV Total 310 ml . Laboratory Tests Test 02/18/18 08:15 White Blood Count 16.6 TH/MM3 Red Blood Count 2.85 MIL/MM3 Hemoglobin 7.9 GM/DL Hematocrit 24.2 % Mean Corpuscular Volume 85.0 FL Mean Corpuscular Hemoglobin 27.7 PG Mean Corpuscular Hemoglobin Concent 32.6 % Red Cell Distribution Width 16.2 % Platelet Count 449 TH/MM3 Mean Platelet Volume 7.4 FL Neutrophils (%) (Auto) 78.1 % Lymphocytes (%) (Auto) 8.7 % Monocytes (%) (Auto) 6.1 % Eosinophils (%) (Auto) 6.6 % Basophils (%) (Auto) 0.5 % Neutrophils # (Auto) 12.9 TH/MM3 Lymphocytes # (Auto) 1.5 TH/MM3 Monocytes # (Auto) 1.0 TH/MM3 Eosinophils # (Auto) 1.1 TH/MM3 Basophils # (Auto) 0.1 TH/MM3 CBC Comment DIFF FINAL Differential Comment Laboratory Tests Test 02/18/18 08:15 Blood Urea Nitrogen 13 MG/DL Creatinine 0.51 MG/DL Random Glucose 102 MG/DL Calcium Level 8.9 MG/DL Sodium Level 140 MEQ/L Potassium Level 3.5 MEQ/L Chloride Level 99 MEQ/L Carbon Dioxide Level 35.3 MEQ/L Anion Gap 6 MEQ/L Estimat Glomerular Filtration Rate 122 ML/MIN Microbiology Date/Time Source Procedure Growth Status 02/17/18 18:00 Sputum Endotracheal Gram Stain - Final Resulted 02/17/18 18:00 Sputum Endotracheal Sputum Culture - Preliminary RARE GROWTH NORMAL RESPIRATORY RADHA Resulted Imaging Last Impressions Chest X-Ray 02/18/18 0000 Signed Impressions: Service Date/Time: Sunday, February 18, 2018 12:14 - CONCLUSION: 1. Tracheostomy is in the midline overlying the tracheal air shadow and no pneumothorax is visualized. 2. Stable bilateral pleural based opacities and bilateral lower lung zone airspace consolidation. Michael Perea MD Abdomen X-Ray 02/18/18 0000 Signed Impressions: Service Date/Time: Sunday, February 18, 2018 15:47 - CONCLUSION: 1. Suction type NGT in the region of the GE junction. Romeo Espinoza MD Chest CT 02/12/18 1334 Signed Impressions: Service Date/Time: Monday, February 12, 2018 14:07 - CONCLUSION: 1. The loculated anterior left pneumothorax has resolved. A small left pleural effusion remains present and the 2 left chest tubes appear to be in good position to drain the fluid. 2. Significant improvement in the bilateral chest wall subcutaneous emphysema. 3. Stable severe kinking of the large bore right chest tube. This chest tube also extends into the fissure. Given these 2 findings, this likely not providing any significant suction. Consider removal. 4. Stable severe bilateral airspace consolidation with multifocal areas of cavitation. Michael Perea MD Liver Ultrasound 02/11/18 0000 Signed Impressions: Service Date/Time: Sunday, February 11, 2018 09:34 - CONCLUSION: Nondiagnostic examination CT scan is recommended for further evaluation if clinically indicated. To Vaughn MD Neck CT 02/10/18 0000 Signed Impressions: Service Date/Time: Saturday, February 10, 2018 14:57 - CONCLUSION: 1. Extensive subcutaneous edema in the neck which has dissected cephalad from the chest and is worse on the left side. 2. Support apparatus as above. See chest CT report for evaluation of lungs. 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 No adenopathy. Everett Ng MD Physical Exam CONSTITUTIONAL/GENERAL: On the vent SKIN: No jaundice, rashes, or lesions. Ecchymoses on upper extremities. Skin temperature appropriate. generalized edema previous Sq emphysema resolved HEAD: Atraumatic. Normocephalic. EYES: Pupils equal and round and reactive. No scleral icterus. No injection or drainage. ENT: No nasal discharge, orally intubated NECK: Supple, nontender. CARDIOVASCULAR: Regular rate and rhythm without murmurs, gallops, or rubs. RESPIRATORY/CHEST: Symmetric, unlabored respirations. Rhonchi b/l. CTx2 on R and CT x 2 on the L GASTROINTESTINAL: Abdomen soft, nondistended. Obese. No reaction to palpation , not guarding. GENITOURINARY: Without palpable bladder distension. Alexandre catheter in place. MUSCULOSKELETAL: Extremities without clubbing, cyanosis, + 3 diffuse edema. . NEUROLOGICAL: sedated lightly does not track, eyes opened not following commands PSYCHIATRIC: appears calm LINE: no evidence of infection Assessment & Plan Remarks IMPRESSION MRSA PNA Multiple b/l pneumothoraces ? postinfluenza PNA Loculated hydropneumothorax: ? empyema Acute VDRF not weaning ; in fact worse High grade , sustained MRSA bacteremia GRANT negative Severe leukocytosis and bandemia New PNA, Enterobacter (panS) along with MRSA Empyema and multiple cavitary lesions - essentaially necrotizing PNA - no e/o endocarditis - CTS not planning to do any sx PLAN fu P sputum ( neg @ 1 day) Continue Zyvox. Monitor Hb, platelets and HCO3. will repeat CT today will start zosyn chk blood clx dw family @ b/s dw Carlene Castro RN, MD Feb 19, 2018 13:03
--- NOTE | 2018-02-19 14:23 | RADRPT ---
EXAM DATE/TIME: 02/19/2018 13:36 [facility] COMPARISON: CT THORAX W/O CONTRAST, February 12, 2018, 14:07. INDICATIONS : Evaluate for pneumonia. RADIATION DOSE: 13.26 CTDIvol (mGy) MEDICAL HISTORY : None SURGICAL HISTORY : Gastric bypass. Tubal ligation. ENCOUNTER: Initial ACUITY: 1 day PAIN SCALE: Non-responsive LOCATION: chest TECHNIQUE: Volumetric scanning of the chest was performed. Using automated exposure control and adjustment of t he mA and/or kV according to patient size, radiation dose was kept as low as reasonably achievable to obtain optimal diagnostic quality images. DICOM format image data is available electronically for r eview and comparison. Follow-up recommendations for detected pulmonary nodules are based at a minimum on nodule size and pa tient risk factors according to Fleischner Society Guidelines. FINDINGS: LUNGS: Multilobar consolidative changes throughout the lungs but greatest in the right upper lobe and left l ower lobe. Multiple cavitary lesions are seen greater throughout the right lung. The largest cavitary lesion in the right upper lobe measuring 4 cm. Right sided chest tube is again noted to be kinked an d unchanged. Large bore left-sided chest tube and small caliber left-sided chest tubes are seen. Tiny right anterobasilar pneumothorax. The pneumothorax the left. PLEURAE: There is partially loculated left-sided pleural effusion. There is significant right pleural effusion . MEDIASTINUM: The heart and great vessels demonstrate no acute abnormality. There is no mediastinal or hilar lymph adenopathy. AXILLAE: Within normal limits. No lymphadenopathy. MUSCULOSKELETAL: Within normal limits for patient age. MISCELLANEOUS: The visualized upper abdominal organs demonstrate no acute abnormality. CONCLUSION: 1. Multilobar consolidation with multiple cavities, not significantly changed. Differential possibili ties are again noted to include septic emboli, TB and fungal etiologies including necrotizing process and autoimmune process such as Birtton's. 2. Small right anterobasilar pneumothorax. Right-sided chest tube likely nonfunctional. 3. 2 left-sided chest tubes with loculated left pleural effusion, slightly more prominent on current study. Karri Muhammad MD on February 19, 2018 at 14:14 Board Certified Radiologist. This report was verified electronically.
--- NOTE | 2018-02-19 14:37 | HHI.CCPN ---
Subjective Remarks/Hospital Course 01/30: 62-year-old female presents for evaluation of increasing shortness of breath and chest pain. She reports 1 week of coughing 3 days of pain in her left chest which radiates to her back, which prompted the visit to the emergency room yesterday. She rates her pain a 6 out of 10. She reports fevers , chills, fatigue, mild nausea. She denies any abdominal pain, vomiting. Patient denies any significant past medical history. Symptom onset was gradual , symptom severity is severe, there are no alleviating factors. Patient states that she has been taking the azithromycin antibiotics that were prescribed to her. She denies any current or historical tobacco use. 01/31: Intubated at 1 AM this morning and placed on mechanical ventilation due to worsening respiratory distress. Currently sedated, orally intubated on mechanical ventilation. 02/01: Remains sedated, orally intubated on mechanical ventilation. Went into A. fib with RVR this morning. Loaded with amiodarone, started on amiodarone drip and given digoxin 0.5 mg IV 02/02: Remains sedated, orally intubated on mechanical ventilation. Right sided pigtail catheter in place with 1+ air leak. Converted to sinus rhythm overnight. Remains on amiodarone gtt. 02/03: Remains sedated, orally intubated on mechanical ventilation. 1+ air leak and right sided pigtail catheter. Tolerating tube feeds. Remains on amiodarone gtt. 02/04: Noted to have pneumothorax on the left side this morning on routine chest x -ray which appeared to be under tension. Right sided pigtail catheter placed by Dr. Peña with reexpansion of lung. Patient remains sedated, orally intubated on mechanical ventilation. 1+ airleak and bilateral chest tubes noted. 02/05: Afebrile. Persistent leukocytosis, bilateral chest tubes continue on wall suction. Chest x-ray pending this a.m.. Patient scheduled for GRANT today, discussed with Dr. Vázquez. Patient continues on amiodarone infusion with sinus rhythm. Postprocedure GRANT,this afternoon, the patient became extremely agitated, noted significant increase in subcu emphysema, peak pressures 50's, O2 saturation significantly decreased to 78-80 %. Stat chest x-ray performed patient was noted to have a significant right pneumothorax. 20 [place] right chest tube placement emergently, with increase in O2 saturation decrease in peak inspiratory pressures. 02/06: Afebrile. Patient with persistent bilateral pneumothoraces, with diffuse bilateral infiltrates and massive SQ emphysema. O2 requirement significantly increased during the night, PIP 38-44. 28 F chest tubes were placed bilaterally with resolution of left pneumothorax and minimization of right pneumothorax, and improved oxygenation. 02/07: TMax 100.1 Chest tubes remain on suction. Resolution of pneumothoraces, continued extensive SQ emphysema. Persistent leukocytosis noted. FiO2 weaned to 50%. 02/08: Late entry note patient seen at 1250. Attempts at CPAP trials, unsuccessful this morning. FiO2 decreased 50%, with adequate oxygenation. 02/09: Afebrile. The patient was transitioned to CPAP trials with pressure support of 22/8. FiO2 currently at 55% continuing to wean. Patient noted with positive fluid balance Lasix 40 mg IV now, patient is initiated on Lasix 40 daily. Patient with positive air leak in chest tubes #1-28 [place] right and #3 pigtail left, both at 2+. Sedation vacation initiated early this a.m. patient neurologically intact. Patient continues on moderate sedation for CPAP to maintain ventilator synchrony plan for transitioning to Precedex. Noted improvement with subcu emphysema. Extensive discussion with patient's daughter regarding a possibility of a tracheostomy if unsuccessful with ventilator weaning process. 02/10: Subcutaneous emphysema has worsened overnight per RN who took care of the patient yesterday, now extending to the upper chest left neck and to the left side of the face including left eyelids. No increase in FiO2 requirement currently on 55%. I have reduced inspiratory pressure from 32 to 28. FiO2 reduced to 50%. Will check a repeat chest x-ray in afternoon if needed. Will request CT surgical evaluation for persistent subcutaneous emphysema despite 2 chest tubes bilaterally 02/11 Patient is sedated with Diprivan, Versed and Fentanyl drips. T: 101.[address] guided chest tube placement by IR today 02/12 No events overnight. Remains sedated and intubated. Afebrile. On PC/AC with PEEP: 8 and FIO2 40%. 02/13 Patient remains intubated and heavily sedated. Afebrile. Repeat CT chest yesterday showed loculated anterior left pneumothorax has resolved. A small left pleural effusion remains present and the 2 left chest tubes appear to be in good position to drain the fluid. Significant improvement in the bilateral chest wall subcutaneous emphysema. 02/14 Patient remains sedated and intubated. Afebrile. On Bumex drip 0.5mg/hr. 02/15 Patient remains intubated and sedated, On Bumex drip 0.5mg/hr with good urine output. T:100.1 02/16 Patient remains sedated and intubated. Off Bumex drip. Afebrile. 02/17 Remains intubated and sedated with Diprivan and Fentanyl drips. Afebrile. For trach tomorrow. 02/18: Trach anticipated for today. Remains sedated. Family at the bedside updated. Coags are normal 02/19: Tracheostomy performed yesterday, patient now with increasing oxygen requirement more critical. Currently on 70% FiO2. A stat CT of the chest ordered by ID shows persistent consolidation multilobar with multiple cavitations. Family updated at the bedside. At this time do not appear to be adequately responding to treatment Objective Vital Signs Date Time Temp Pulse Resp B/P (MAP) Pulse Ox O2 Delivery O2 Flow Rate FiO2 02/19/18 14:00 109 02/19/18 13:25 99 100 02/19/18 12:00 99.0 22 143/63 (89) Intake and Output 02/19/18 02/19/18 02/20/18 08:00 16:00 00:00 Intake Total 1002 ml 100 ml Output Total 650 ml Balance 352 ml 100 ml Result Diagram: 02/18/18 0815 02/18/18 0815 Imaging Last Impressions Chest X-Ray 02/17/18 0000 Signed Impressions: Service Date/Time: Saturday, February 17, 2018 04:00 - CONCLUSION: 1. Patchy alveolar disease characteristic of edema or pneumonia. There has been no significant change when compared to the prior exam. To Vaughn MD Chest CT 02/12/18 1334 Signed Impressions: Service Date/Time: Monday, February 12, 2018 14:07 - CONCLUSION: 1. The loculated anterior left pneumothorax has resolved. A small left pleural effusion remains present and the 2 left chest tubes appear to be in good position to drain the fluid. 2. Significant improvement in the bilateral chest wall subcutaneous emphysema. 3. Stable severe kinking of the large bore right chest tube. This chest tube also extends into the fissure. Given these 2 findings, this likely not providing any significant suction. Consider removal. 4. Stable severe bilateral airspace consolidation with multifocal areas of cavitation. Michael Perea MD Liver Ultrasound 02/11/18 0000 Signed Impressions: Service Date/Time: Sunday, February 11, 2018 09:34 - CONCLUSION: Nondiagnostic examination CT scan is recommended for further evaluation if clinically indicated. To Vaughn MD Neck CT 02/10/18 0000 Signed Impressions: Service Date/Time: Saturday, February 10, 2018 14:57 - CONCLUSION: 1. Extensive subcutaneous edema in the neck which has dissected cephalad from the chest and is worse on the left side. 2. Support apparatus as above. See chest CT report for evaluation of lungs. 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 No adenopathy. Everett Ng MD Procedures 02/05- Right emergent 20 F chest tube placement 02/06: Left 28 [place] chest tube placement, right chest tube replacement 28 [place] Objective Remarks HEENT: Sedated,, Pallor present, no icterus, tongue/ mucosa moist SQ emphysema resolved mostly. Neck: No JVD. Needs tracheostomy in place with no significant bleed Chest/Pulm: on mech vent, air entry decreased bilaterally at bases, scattered rhonchi bilaterally. Bilateral pigtail catheters insitu., and 28F chest tubes bilaterally to -40cm H20. CVS: S1-S2 regular, no murmur GI/abdomen: soft, nontender, bowel sounds hypoactive Neuro: RASS -2, currently on fentanyl, propofol and Versed infusions. Patient moving extremities 4, did not follow commands Extremities: warm bilaterally, 1+bilateral peripheral edema upper and lower extremities A/P Assessment and Plan Neuro: Neuro checks per ICU protocol propofol and fentanyl to maintain ventilator synchrony. Daily sedation vacation Pulm: Acute hypoxemic respiratory failure MRSA pneumonia, with multiple cavitations and consolidation COPD Persistent bilateral pneumothorax, significant subcutaneous emphysema ?Post Influenza pneumonia Continue vent support keep sats >92%,s/p Trach 02/18 On PRVC RR 16, TV 500, IT:1.0, PEEP:8, FIO2: 70%. Increase PEEP to 10 DuoNeb scheduled and when necessary. SBT daily as bernarda. Bilateral pigtail catheters and [address] in place(4 total) Repeat CT chest 02/12 The loculated anterior left pneumothorax has resolved. the 2 left chest tubes appear to be in good position to drain the fluid. Significant improvement in the bilateral chest wall subQ emphysema. Stable severe bilateral airspace consolidation with multifocal areas of cavitation. Thoracic surgery is following- Dr. Thornton. CXR: No significant changes b/l airspace disease Renal: Acute kidney injury-resolved Dehydration-resolved -Maintain Alexandre -Monitor renal function, I/O's, electrolytes replacement per protocol. Cardiovascular: A. fib with RVR (converted to NSR 02/02) -02/05 amiodarone infusion discontinued. - 02/05 GRANT -no valvular vegetations. EF 55-60%, trace MVR, mild TVR, PAP 35 Monitor HR and BP keep MAP>65mmHfg On Cardizem 60mg Q6, Lopressor 25mg Q12 GI Elevated LFT;s ( trending down) Hepatitis profile: Negative. US liver: non-diagnostic study -Tube feeds Jevity 1.5 60 cc/hr at goal,- On Pepcid 20mg BID Consulted GI for PEG tube placement ID: MRSA, Enterobacter pneumonia MRSA Bacteremia - Antibiotics per ID. On Zyvox. Completed treatment for Enterobacter -start zosyn per ID. CT chest showing persistent consolidation and cavitation -Monitor for signs of infections ( Fever, WBC) -ID- Dr. Singleton following. 02/10, 02/15 Sputum: MRSA 02/10 BC: NGTD Endocrine: Hyperglycemia Medium scale sliding scale insulin dosing Glucose monitoring per ICU protocol DVT GI prophylaxis - Teds SCDs - Subcutaneous heparin - Pepcid Lines: peripheral IV's. Palliative care is following Code status: Alternative code CCT 35 Sarita Rodriguez MD Feb 19, 2018 14:37
--- NOTE | 2018-02-19 15:06 | PD.CONS ---
cc: Kevin Nj MD HPI Service General Surgery Consult Requested By Dr. Max Reason for Consult Jejunostomy tube placement Primary Care Physician No Primary Care Physician History of Present Illness This is a 62 year old female who presented to the ED on January 30 with complaints of shortness of breath and chest pain. She had a cough prior to coming to the ED for about three days. She was intubated and placed on mechanical ventilation. During this hospitalization, she has had bilateral chest tubes placed. A tracheostomy tube was placed yesterday due to ventilator dependent respiratory failure. The patient does have a surgical history of gastric bypass. A PEG tube insertion was attempted but not successful. A General Surgery consultation has been requested for jejunostomy tube placement. Review of Systems ROS Limitations: Clinical Condition, Intubated Past Family Social History Past Medical History None Past Surgical History Gastric bypass Reported Medications No chronic medications reported Allergies: Coded Allergies: No Known Allergies (Unverified , 01/30/18) Active Ordered Medications Current Medications Medications (Trade) Dose Ordered Sig/Tyler Route Start Time Stop Time Status Last Admin (NS Flush) 2 ml UNSCH PRN IV FLUSH 01/30/18 19:00 02/05/18 09:03 (NS Flush) 2 ml BID IV FLUSH 01/30/18 21:00 02/19/18 07:59 (Tylenol) 650 mg Q6H PRN PO 01/30/18 19:00 02/19/18 08:09 (Morphine Inj) 2 mg Q2H PRN IV PUSH 01/30/18 19:00 02/05/18 11:41 (Zofran Inj) 4 mg Q6H PRN IV PUSH 01/30/18 19:00 (Restoril) 15 mg HS PRN PO 01/30/18 19:00 Future Hold (Duoneb Neb) 1 ampule Q2HR NEB PRN INH 01/30/18 19:00 02/17/18 20:28 Miscellaneous Information 1 Q361D XX 01/30/18 19:00 01/30/18 22:56 (Chlorhexidine 2% Cloth) 3 pack Taper DAILY@04 TOP 01/31/18 04:00 01/27/19 03:59 02/19/18 04:00 (Chlorhexidine 2% Cloth) 3 pack UNSCH PRN TOP 01/30/18 19:00 (Chiquis-Colace) 1 tab BID PO 01/30/18 21:00 02/19/18 07:58 (Milk Of Magnesia Liq) 30 ml Q12H PRN PO 01/30/18 19:00 (Senokot) 17.2 mg Q12H PRN PO 01/30/18 19:00 02/09/18 17:02 (Dulcolax Supp) 10 mg DAILY PRN RECTAL 01/30/18 19:00 02/07/18 05:30 (Lactulose Liq) 30 ml DAILY PRN PO 01/30/18 19:00 (Peridex 0.12% Liq) 15 ml BID@08,20 MT 01/31/18 08:00 02/19/18 07:59 Fentanyl Citrate 250 ml @ 20 mls/hr TITRATE PRN IV 01/30/18 23:45 02/19/18 07:59 Linezolid 300 ml @ 300 mls/hr Q12H IV 02/01/18 01:00 02/19/18 12:44 (D50w (Vial) Inj) 25 ml UNSCH PRN IV 02/02/18 15:15 (Glucagon Inj) 1 mg UNSCH PRN IM/SQ 02/02/18 15:15 (Trandate Inj) 10 mg Q4H PRN IV PUSH 02/04/18 05:00 02/16/18 00:18 (Apresoline Inj) 20 mg Q4H PRN IV PUSH 02/04/18 05:00 02/19/18 08:09 (Aspirin Chew) 81 mg DAILY CHEW 02/06/18 09:00 02/19/18 07:59 Propofol 100 ml @ 3.345 mls/ hr TITRATE PRN IV 02/07/18 19:30 02/19/18 11:52 (NovoLOG SUPPLEMENTAL SCALE) 1 Q6H SQ 02/11/18 12:00 02/17/18 06:13 Potassium Chloride 100 ml @ 50 mls/hr Q2H PRN IV 02/12/18 10:00 02/15/18 09:11 Potassium Chloride 100 ml @ 50 mls/hr Q2H PRN IV 02/12/18 10:00 02/18/18 14:19 (K-Lyte Cl Eff) 50 meq UNSCH PRN PO 02/12/18 10:00 Potassium Chloride 100 ml @ 25 mls/hr UNSCH PRN IV 02/12/18 10:00 Potassium Chloride 100 ml @ 50 mls/hr Q2H PRN IV 02/12/18 10:00 Magnesium Sulfate 4 gm/Sodium Chloride 100 ml @ 50 mls/hr UNSCH PRN IV 02/12/18 10:00 (Mag-Ox) 800 mg UNSCH PRN PO 02/12/18 10:00 Magnesium Sulfate 2 gm/Sodium Chloride 100 ml @ 50 mls/hr UNSCH PRN IV 02/12/18 10:00 (K-Phos) 2,000 mg Q4H PRN PO 02/12/18 10:00 Sodium Phosphate 30 mmol/Sodium Chloride 250 ml @ 42 mls/hr UNSCH PRN IV 02/12/18 10:00 (K-Phos) 2,000 mg UNSCH PRN PO/TUBE 02/12/18 10:00 Potassium Phosphate 30 mmol/ Sodium Chloride 260 ml @ 42 mls/hr UNSCH PRN IV 02/12/18 10:00 (Pepcid) 20 mg BID PO 02/12/18 21:00 02/19/18 07:58 (Cardizem) 60 mg Q6HR PO 02/14/18 12:00 02/19/18 06:32 (Lopressor) 25 mg Q12H PO 02/15/18 13:00 02/18/18 00:51 Lactated Ringer's 1,000 ml @ 30 mls/hr Q24H PRN IV 02/18/18 06:15 02/21/18 06:14 Sodium Chloride 500 ml @ 30 mls/hr [id number] PRN IV 02/18/18 06:15 02/21/18 06:14 (Lopressor) 25 mg MAJOR ACCOUNT REPRESENTATIVE PRN PO 02/18/18 06:15 02/21/18 06:14 (Betadine 5% Antisepsis Kit) 1 applic MAJOR ACCOUNT REPRESENTATIVE PRN EACH NARE 02/18/18 06:15 02/21/18 06:14 (Chlorhexidine 2% Cloth) 3 pack MAJOR ACCOUNT REPRESENTATIVE PRN TOPICAL 02/18/18 06:15 02/21/18 06:14 Piperacillin Sod/ Tazobactam Sod 100 ml @ 200 mls/hr Q6H IV 02/19/18 15:00 Family History Unable to obtain Social History Per medical records: Patient in non smoker Patient has no history of ETOH abuse Patient has no history of drug abuse She was is good health prior to this hospitalization. She has two daughters. Physical Exam Vital Signs Vital Signs Date Time Temp Pulse Resp B/P (MAP) Pulse Ox O2 Delivery O2 Flow Rate FiO2 02/19/18 14:00 109 02/19/18 13:25 99 100 02/19/18 13:11 96 65 02/19/18 12:00 65 02/19/18 12:00 99.0 109 22 143/63 (89) 96 02/19/18 12:00 109 02/19/18 10:30 60 02/19/18 10:28 92 65 02/19/18 10:00 113 22 143/64 (90) 95 02/19/18 10:00 114 02/19/18 09:00 99.1 120 26 130/58 (82) 95 02/19/18 08:33 91 55 02/19/18 08:15 70 02/19/18 08:00 100.1 114 26 181/74 (109) 90 02/19/18 08:00 55 02/19/18 08:00 114 02/19/18 07:51 93 55 02/19/18 07:51 55 02/19/18 06:00 113 02/19/18 04:09 94 55 02/19/18 04:00 100.0 97 20 101/56 (71) 93 02/19/18 04:00 97 02/19/18 04:00 60 02/19/18 03:30 97 20 94/51 (65) 92 02/19/18 03:00 99 20 95/52 (66) 92 02/19/18 02:31 101 20 93/50 (64) 92 02/19/18 02:30 101 20 91 02/19/18 02:00 111 22 131/87 (102) 94 02/19/18 02:00 111 02/19/18 01:30 111 24 119/65 (83) 97 02/19/18 01:00 103 21 117/59 (78) 94 02/19/18 00:30 99 20 98/55 (69) 94 02/19/18 00:22 94 55 02/19/18 00:00 60 02/19/18 00:00 100 02/19/18 00:00 99.8 100 20 97/52 (67) 94 02/18/18 23:30 101 20 92/50 (64) 93 02/18/18 23:00 103 20 102/51 (68) 92 02/18/18 22:30 105 20 98/52 (67) 91 02/18/18 22:00 116 02/18/18 22:00 116 23 151/65 (93) 92 02/18/18 21:30 112 26 168/74 (105) 93 02/18/18 21:00 108 23 165/76 (105) 98 02/18/18 20:00 97 02/18/18 20:00 60 02/18/18 20:00 99.9 97 20 97/52 (67) 96 02/18/18 16:56 100 75 02/18/18 16:00 99.3 94 20 116/56 (76) 96 02/18/18 16:00 70 Physical Exam GENERAL: Critically ill 62 year old female with tracheostomy connected to mechanical ventilation. SKIN: Warm and dry. HEAD: Atraumatic. Normocephalic. EYES: Pupils equal and round. No scleral icterus. No injection or drainage. ENT: No nasal bleeding or discharge. Mucous membranes pink and moist. NECK: Trachea midline. CARDIOVASCULAR: Regular rate and rhythm. RESPIRATORY: No accessory muscle use. Clear to auscultation. Breath sounds equal bilaterally. GASTROINTESTINAL: Abdomen soft, non-tender, nondistended. MUSCULOSKELETAL: Extremities without clubbing, cyanosis, or edema. No obvious deformities. NEUROLOGICAL: Sedated. PSYCHIATRIC: Unable to examine. Laboratory Date/Time Source Procedure Growth Status 02/19/18 14:03 Blood Peripheral Aerobic Blood Culture Pending Received 02/19/18 14:03 Blood Peripheral Anaerobic Blood Culture Pending Received 02/10/18 13:53 Genital Vaginal Genital Culture - Final Klebsiella Pneumoniae Zelda Albicans Complete 02/17/18 18:00 Sputum Endotracheal Gram Stain - Final Resulted 02/17/18 18:00 Sputum Endotracheal Sputum Culture - Preliminary RARE GROWTH NORMAL RESPIRATORY RADHA Resulted 01/31/18 07:42 Urine Catheterized Urine Urine Culture - Final NO GROWTH IN 48 HOURS. Complete Result Diagram: 02/18/1815 02/18/18814 Assessment and Plan Assessment and Plan 62 year old female with VDRF; s/p trach placement; may need jejunostomy placement if unable to wean for vent -Will continue to follow along -If she requires feeding access will plan for laparoscopic jejunostomy tube in OR -Continue routine trach care -Vent per CCM -We will continue to follow Attending Note - Dr. Nj New problem; - Need for enteral feeding access; due to Viktor-en-Y gastric bypass , PEG tube not possible. Will see whether patient able to be weaned over next 72 hours; if not, will need surgical jejunal feeding tube Discussed with patient's daughter; she is agreeable. The exam, history, and the medical decision-making described in the above note were completed with the assistance of the mid-level provider. I reviewed and agree with the findings presented. I attest that I had a [id number] encounter with the patient on the same day, and personally performed and documented my assessment and findings in the medical record. Discussed Condition With Dr. Clem Arceo at bedside Adri Sheldon/First Giovanni OSBORN Feb 19, 2018 15:06 Kevin Nj MD Feb 20, 2018 16:06
[2018-02-19] MEDS: PIPERACIL-TAZO 4.5 GM PREMIX 100 ML IV SCH ×2 (15:31→21:32)
--- NOTE | 2018-02-19 16:26 | HHI.HCPN ---
Reason for visit a. To assist with evaluation and management of symptoms including: dyspnea; encephalopathy, pain b. To assist medical decision maker(s) with: better understanding of current medical conditions; weighing benefits/burdens of medical treatment options; making medical treatment decisions. . Subjective/Interval History Palliative care follow-up for further clarifications of goals of care, emotional support. Patient seen and medical ICU s/p tracheostomy placement . Patient underwent EGD, unable to place PEG tube secondary to history of gastric bypass. Surgery has been consulted for J tube placement. Patient with increased oxygen requirement, between 45% to 70% today. Experiencing low-grade fevers, max temperature 100.1. Sputum culture 02/15 with persistent S. Aureus MRSA. Infectious disease following. Chest CT follow-up 02/19 revealing multilobar consolidations with multiple cavities, not significantly changed. Met with patient's daughter Zenobia, patient's sisters Kaye and Milli who are visiting from [place]. Palliative care director social service Zenobia Cifuentes present for further support. Medical update provided. Daughter Zenobia will be returning to [place] this , daughter Alona to return to [place] on Sunday. At the family's request, reviewed events leading to this hospitalization, clinical course and current medical management. Shared concerns of patient's clinical condition to include increased oxygen requirement, persistent consolidations and multiple palpitations, encephalopathy, likelihood of long- term ventilator dependence. Reviewed that patient does not appear to be responding to treatment. Family was allowed to ask several questions regarding medical management, recommendations and prognosis. Reviewed that if patient is survive this hospitalization, she will likely require prolonged rehabilitation. Reviewed the patient is at a very high risk of further complications, decline and . Goal of therapy at this time is to continue aggressive management short of no chest compressions or defibrillation. Daughter actually verbalized that they will like to allow a few more days for clinical improvement; however, likely to transition to comfort-directed care if long-term prognosis remains poor. Ongoing emotional support and active listening provided. Family receptive to palliative care follow-ups. . Family/friend interactions See interval note. . Advance Directives Living Will: Never completed Health Care Surrogate: Never completed Durable Power of Bundle Helper: Never completed Advance Directive Specifics Date completed: Patient has never completed an advanced directive. . Health Care Surrogate(s): There is no written designation of healthcare surrogate. . Documented care wishes: There is no written documentation of healthcare goals/preferences. . Significant change in goals: Goal of treatment remains unchanged. . Objective Vital Signs Date Time Temp Pulse Resp B/P (MAP) Pulse Ox O2 Delivery O2 Flow Rate FiO2 02/19/18 14:00 109 02/19/18 13:25 99 100 02/19/18 13:11 96 65 02/19/18 12:00 65 02/19/18 12:00 99.0 109 22 143/63 (89) 96 02/19/18 12:00 109 02/19/18 10:30 60 02/19/18 10:28 92 65 02/19/18 10:00 113 22 143/64 (90) 95 02/19/18 10:00 114 02/19/18 09:00 99.1 120 26 130/58 (82) 95 02/19/18 08:33 91 55 02/19/18 08:15 70 02/19/18 08:00 100.1 114 26 181/74 (109) 90 02/19/18 08:00 55 02/19/18 08:00 114 02/19/18 07:51 93 55 02/19/18 07:51 55 02/19/18 06:00 113 02/19/18 04:09 94 55 02/19/18 04:00 100.0 97 20 101/56 (71) 93 02/19/18 04:00 97 02/19/18 04:00 60 02/19/18 03:30 97 20 94/51 (65) 92 02/19/18 03:00 99 20 95/52 (66) 92 02/19/18 02:31 101 20 93/50 (64) 92 02/19/18 02:30 101 20 91 02/19/18 02:00 111 22 131/87 (102) 94 02/19/18 02:00 111 02/19/18 01:30 111 24 119/65 (83) 97 02/19/18 01:00 103 21 117/59 (78) 94 02/19/18 00:30 99 20 98/55 (69) 94 02/19/18 00:22 94 55 02/19/18 00:00 60 02/19/18 00:00 100 02/19/18 00:00 99.8 100 20 97/52 (67) 94 02/18/18 23:30 101 20 92/50 (64) 93 02/18/18 23:00 103 20 102/51 (68) 92 02/18/18 22:30 105 20 98/52 (67) 91 02/18/18 22:00 116 02/18/18 22:00 116 23 151/65 (93) 92 02/18/18 21:30 112 26 168/74 (105) 93 02/18/18 21:00 108 23 165/76 (105) 98 02/18/18 20:00 97 02/18/18 20:00 60 02/18/18 20:00 99.9 97 20 97/52 (67) 96 02/18/18 16:56 100 75 Intake & Output 02/19/18 02/19/18 07:00 19:00 Intake Total 992 ml 310 ml Output Total 650 ml Balance 342 ml 310 ml IV Total 932 ml 310 ml Other 60 ml Output Urine Total 650 ml Chest Tube Drainage Total 0 ml # Bowel Movements 0 Physical Exam CONSTITUTIONAL/GENERAL: This is an obese patient in the medical intensive care unit bed. No apparent distress. TUBES/LINES/DRAINS: Tracheostomy; right subclavian central line; bilateral chest tubes x2; peripheral IV; sequential compressive devices. SKIN: Pale. No jaundice, rashes. Ecchymoses on upper extremities. No wounds seen anteriorly. Skin temperature appropriate. Not diaphoretic. EYES: Pupils equal and round. Unable to evaluate extraocular movements. No scleral icterus. No injection or drainage. ENT: Unable to evaluate hearing. Nose without bleeding or purulent drainage. Moist oral mucosa. NECK: Tracheostomy. CARDIOVASCULAR: Regular rate/rhythm without murmurs, gallops, or rubs. RESPIRATORY/CHEST: Bilateral chest tubes. Symmetric respirations on vent. Decreased air movement at bases. Scattered rhonchi bilaterally. GASTROINTESTINAL: Abdomen obese, large, soft. Active bowel sounds. GENITOURINARY: Without palpable bladder distension. Alexandre catheter in place. MUSCULOSKELETAL: Extremities without clubbing, cyanosis. Widespread edema vs SQ emphysema. No mottling. NEUROLOGICAL: Briefly opening eyes to tactile stimuli. Not tracking or following commands. PSYCHIATRIC: Appears calm. . Diagnostic Tests Laboratory Laboratory Tests Test 02/17/18 06:27 02/18/18 08:15 White Blood Count 15.7 TH/MM3 (4.0-11.0) 16.6 TH/MM3 (4.0-11.0) Red Blood Count 2.83 MIL/MM3 (4.00-5.30) 2.85 MIL/MM3 (4.00-5.30) Hemoglobin 7.9 GM/DL (11.6-15.3) 7.9 GM/DL (11.6-15.3) Hematocrit 24.2 % (35.0-46.0) 24.2 % (35.0-46.0) Mean Corpuscular Volume 85.4 FL (80.0-100.0) 85.0 FL (80.0-100.0) Mean Corpuscular Hemoglobin 27.8 PG (27.0-34.0) 27.7 PG (27.0-34.0) Mean Corpuscular Hemoglobin Concent 32.5 % (32.0-36.0) 32.6 % (32.0-36.0) Red Cell Distribution Width 16.1 % (11.6-17.2) 16.2 % (11.6-17.2) Platelet Count 512 TH/MM3 (150-450) 449 TH/MM3 (150-450) Mean Platelet Volume 7.9 FL (7.0-11.0) 7.4 FL (7.0-11.0) Neutrophils (%) (Auto) 81.3 % (16.0-70.0) 78.1 % (16.0-70.0) Lymphocytes (%) (Auto) 6.6 % (9.0-44.0) 8.7 % (9.0-44.0) Monocytes (%) (Auto) 5.5 % (0.0-8.0) 6.1 % (0.0-8.0) Eosinophils (%) (Auto) 5.5 % (0.0-4.0) 6.6 % (0.0-4.0) Basophils (%) (Auto) 1.1 % (0.0-2.0) 0.5 % (0.0-2.0) Neutrophils # (Auto) 12.8 TH/MM3 (1.8-7.7) 12.9 TH/MM3 (1.8-7.7) Lymphocytes # (Auto) 1.0 TH/MM3 (1.0-4.8) 1.5 TH/MM3 (1.0-4.8) Monocytes # (Auto) 0.9 TH/MM3 (0-0.9) 1.0 TH/MM3 (0-0.9) Eosinophils # (Auto) 0.9 TH/MM3 (0-0.4) 1.1 TH/MM3 (0-0.4) Basophils # (Auto) 0.2 TH/MM3 (0-0.2) 0.1 TH/MM3 (0-0.2) CBC Comment AUTO DIFF DIFF FINAL Differential Comment AUTO DIFF CONFIRMED Toxic Granulation 1+ (NORMAL) Platelet Estimate HIGH (NORMAL) Platelet Morphology Comment NORMAL (NORMAL) Blood Urea Nitrogen 17 MG/DL (7-18) 13 MG/DL (7-18) Creatinine 0.65 MG/DL (0.50-1.00) 0.51 MG/DL (0.50-1.00) Random Glucose 178 MG/DL (74-106) 102 MG/DL (74-106) Calcium Level 8.8 MG/DL (8.5-10.1) 8.9 MG/DL (8.5-10.1) Phosphorus Level 3.9 MG/DL (2.5-4.9) Magnesium Level 2.3 MG/DL (1.5-2.5) Sodium Level 137 MEQ/L (136-145) 140 MEQ/L (136-145) Potassium Level 3.5 MEQ/L (3.5-5.1) 3.5 MEQ/L (3.5-5.1) Chloride Level 96 MEQ/L (98-107) 99 MEQ/L (98-107) Carbon Dioxide Level 33.3 MEQ/L (21.0-32.0) 35.3 MEQ/L (21.0-32.0) Anion Gap 8 MEQ/L (5-15) 6 MEQ/L (5-15) Estimat Glomerular Filtration Rate 92 ML/MIN (>89) 122 ML/MIN (>89) Prothrombin Time 9.9 SEC (9.8-11.6) Prothromb Time International Ratio 1.0 RATIO Result Diagram: 02/18/18 0815 02/18/18 0815 Microbiology Microbiology Date/Time Source Procedure Growth Status 02/19/18 14:03 Blood Peripheral Aerobic Blood Culture Pending Received 02/19/18 14:03 Blood Peripheral Anaerobic Blood Culture Pending Received 02/19/18 14:03 Blood Peripheral Aerobic Blood Culture Pending Received 02/19/18 14:03 Blood Peripheral Anaerobic Blood Culture Pending Received 02/17/18 18:00 Sputum Endotracheal Gram Stain - Final Resulted 02/17/18 18:00 Sputum Endotracheal Sputum Culture - Preliminary RARE GROWTH NORMAL RESPIRATORY RADHA Resulted Imaging Last [address] 02/19/18 0000 Signed Impressions: Service Date/Time: Monday, February 19, 2018 13:36 - CONCLUSION: 1. Multilobar consolidation with multiple cavities, not significantly changed. Differential possibilities are again noted to include septic emboli, TB and fungal etiologies including necrotizing process and autoimmune process such as Britton's. 2. Small right anterobasilar pneumothorax. Right-sided chest tube likely nonfunctional. 3. 2 left-sided chest tubes with loculated left pleural effusion, slightly more prominent on current study. Karri Muhammad MD Procedures * 01/31/18 -Intubation/mechanical ventilation right subclavian * Central line placement * Bilateral chest tube placement * Transesophageal echo * 02/18/18 -tracheostomy . Assessment and Plan Disease Oriented Problem List: (1) PNA (pneumonia) Comment: MRSA + Enterobacter (2) Respiratory failure (3) ARDS (adult respiratory distress syndrome) (4) Sepsis Comment: MRSA (5) Anemia (6) Hypoalbuminemia (7) Bilateral pneumothoraces Comment: Recurrent and multiple pneumothoraces . (8) ARF (acute renal failure) Comment: REsolving (9) Encephalopathy Symptom Scale: (1) Pain 0-10 Scale: Unable to quantify Comment: No known prehospitalization pain syndromes. Current sources of discomfort might include orotracheal and orogastric intubations; vascular access lines; restraints; Alexandre catheter; chest tubes; prolonged bedbound status. (2) Dyspnea 0-10 Scale: Unable to quantify Comment: Patient with underlying pneumonia and bilateral pneumothoraces. Dyspnea currently managed with ventilatory support. (3) Encephalopathy 0-10 Scale: Unable to quantify Pertinent Non-Medical Issues Psychosocial: Has a male partner . She normally lives with him in a manufactured home. He is a smoker. Her 2 daughters are now down from [place] to help. Spiritual: Patient is sikh yazdanism. [employer] visits would be appreciated. Legal: There are no advance directives. Without written designation of a healthcare surrogate, proxy decision making would fall to both adult daughters. Ethical issues impacting care: Patient is currently incapacitated to make her own medical decisions. It is unclear if/when she will become capacitated to do so. . Important Contacts Alona Caballero (daughter and co-health care proxy) [phone] Zenobia Clay (daughter and co-health care proxy) [phone] Brett Mackay (boyfriend -- NO DECISION MAKING RIGHTS unless there is written documentation saying otherwise) [phone] . Prognosis On the one hand, other than her morbid obesity, this patient has very few health problems and has managed to stay out of the hospital. Ordinarily, we would expect her to respond well to treatment and improve. This patient declined incredibly quickly and has very severe respiratory disease in spite of the fact that she has no known underlying chronic respiratory illness.She has multiple pneumothoraces. She has developed Enterobacter pneumonia on top of her MRSA pneumonia. Patient ventilator dependent at this time status post tracheostomy. Appears not to be responding to medical treatment. Overall prognosis is guarded, remains at high risk of further decompensation, decline and . . Code Status: Alternative Code (Per discussion with two daughters on 02/11/18) Plan == Code Status: ALT CODE (no defibrillation; no chest compression) == Medical Decision Making: Patient is currently incapacitated to make her own healthcare decisions. It is unclear if/when she will recover capacity to do so. Since there is no written designation of healthcare surrogacy that we are aware of, proxy decision making would fall to her 2 adult children -- Alona Caballero and Zenobia Clay. They both have accepted this role. == Goals of medical treatment: Goals of treatment remain aggressive short of no chest compressions or defibrillation. Patient's daughters acting as healthcare proxy decision makers have elected to proceed with tracheostomy and J -tube placement. Reviewed likely illness trajectory with anticipated prolonged hospitalization and rehab if patient survives this hospitalization, prognosis guarded. Reviewed that patient remains at a very high risk of further complications, continued decline and . Family verbalized understanding. == Symptoms: * Dyspnea: Patient with underlying pneumonia and bilateral pneumothoraces. Dyspnea currently managed with ventilatory support. Bilateral chest tubes in place. Patient status post tracheostomy on 02/18, not tolerating weaning trials. * Pain: No known pre-hospitalization pain syndromes. Current sources of discomfort might include orotracheal and orogastric intubations; vascular access lines; restraints; Alexandre catheter; chest tubes; prolonged bedbound status. Currently on fentanyl, patient appears comfortable. No further recommendations at this time. * Encephalopathy: Patient is currently sedated but underlying encephalopathy probably secondary to her sepsis/critical illness. == Palliative care will continue to follow up as needed to assist with symptom management and to further clarify goals of medical treatment as the clinical course evolves. Family receptive to this. . Time Spent Total Floor Time (mins): 37 (Total time to include review of medical records, physical exam, family meeting to discuss goals of care and provide medical update with patient's daughter Zenobia and patient's 2 sisters.) >50% Counseling/Coord of Care: Yes Attestation To help prompt me to consider important information that might be impacting today's encounter and assessment, information from prior notes written by myself or my colleagues may have been "brought forward" into today's note. My signature on this note, however, is an attestation that I personally performed the exam, history, and/or decision-making noted today, and, unless otherwise indicated, the interactions with patient, family, and staff as well as the review of records all occurred today. I also attest that the listed assessment and stated plan reflect my best clinical judgment today based on the combination of historical information, prior notes, and today's exam/ interactions. When time spent is documented, it refers only to time spent today by the signer, or if indicated, combined time spent today by collaborating physician/nurse practitioner. Myra Delatorre Feb 19, 2018 16:26
--- NOTE | 2018-02-19 19:43 | HHI.PR ---
Subjective Remarks 62 YO Female with VDRF,PTx, 4 Chest tubes 2 chest tubes have airleak Sedated with Fentanyl On Vent, PRVC AC Had Trach done Tolerated CPAP [address] Chest worsening bilat infilt Objective Vital Signs Vital Signs Date Time Temp Pulse Resp B/P (MAP) Pulse Ox O2 Delivery O2 Flow Rate FiO2 02/19/18 18:00 89 02/19/18 16:09 96 60 02/19/18 16:00 86 02/19/18 16:00 60 02/19/18 16:00 99.1 90 20 94/51 (65) 96 02/19/18 14:00 109 02/19/18 13:25 99 100 02/19/18 13:11 96 65 02/19/18 12:00 65 02/19/18 12:00 99.0 109 22 143/63 (89) 96 02/19/18 12:00 109 02/19/18 10:30 60 02/19/18 10:28 92 65 02/19/18 10:00 113 22 143/64 (90) 95 02/19/18 10:00 114 02/19/18 09:00 99.1 120 26 130/58 (82) 95 02/19/18 08:33 91 55 02/19/18 08:15 70 02/19/18 08:00 100.1 114 26 181/74 (109) 90 02/19/18 08:00 55 02/19/18 08:00 114 02/19/18 07:51 93 55 02/19/18 07:51 55 02/19/18 06:00 113 02/19/18 04:09 94 55 02/19/18 04:00 100.0 97 20 101/56 (71) 93 02/19/18 04:00 97 02/19/18 04:00 60 02/19/18 03:30 97 20 94/51 (65) 92 02/19/18 03:00 99 20 95/52 (66) 92 02/19/18 02:31 101 20 93/50 (64) 92 02/19/18 02:30 101 20 91 02/19/18 02:00 111 22 131/87 (102) 94 02/19/18 02:00 111 02/19/18 01:30 111 24 119/65 (83) 97 02/19/18 01:00 103 21 117/59 (78) 94 02/19/18 00:30 99 20 98/55 (69) 94 02/19/18 00:22 94 55 02/19/18 00:00 60 02/19/18 00:00 100 02/19/18 00:00 99.8 100 20 97/52 (67) 94 02/18/18 23:30 101 20 92/50 (64) 93 02/18/18 23:00 103 20 102/51 (68) 92 02/18/18 22:30 105 20 98/52 (67) 91 02/18/18 22:00 116 02/18/18 22:00 116 23 151/65 (93) 92 02/18/18 21:30 112 26 168/74 (105) 93 02/18/18 21:00 108 23 165/76 (105) 98 02/18/18 20:00 97 02/18/18 20:00 60 02/18/18 20:00 99.9 97 20 97/52 (67) 96 I/O 02/18/18 02/18/18 02/18/18 02/19/18 02/19/18 02/19/18 07:00 15:00 23:00 07:00 15:00 23:00 Intake Total 1467 ml 200 ml 1150 ml 792 ml 310 ml 740 ml Output Total 2425 ml 1200 ml 650 ml 800 ml Balance -958 ml 200 ml -50 ml 142 ml 310 ml -60 ml IV Total 1467 ml 200 ml 1040 ml 732 ml 310 ml 700 ml Tube Irrigant 60 ml 40 ml Other 50 ml 60 ml Output Urine Total 2425 ml 1200 ml 650 ml 800 ml Chest Tube Drainage Total 0 ml 0 ml 0 ml # Bowel Movements 0 0 0 0 Result Diagram: 02/18/1881402/18/18814 Objective Remarks GENERAL: WBWN Female, on Vent, sedated SKIN: Warm and dry. HEAD: Normocephalic. EYES: No scleral icterus. No injection or drainage. NECK: Supple, trachea midline. No JVD or lymphadenopathy. CARDIOVASCULAR: Regular rate and rhythm without murmurs, gallops, or rubs. RESPIRATORY: Breath sounds equal bilaterally. No accessory muscle use. [address] SQ Emphysema. GASTROINTESTINAL: Abdomen soft, non-tender, nondistended. MUSCULOSKELETAL: No cyanosis, or edema. BACK: Nontender without obvious deformity. No CVA tenderness. A/P Assessment and Plan VDRF Post Influenza Pn MRSA PTX PLAN: Cont Vent support Cont Abx TF Chest tubes to suction. Sedation with Fentanyl., and Diprivan CPAP trial in AM Dru Nina MD Feb 19, 2018 19:43
[2018-02-20] VITALS (18 sets, daily range): BP systolic 107–187; BP diastolic 56–84; PULSE 78–102; RESP 19–24; TEMP 98.3–99; O2SAT 93–100
[2018-02-20] MEDS: DILTIAZEM HCL 30 MG TAB PO SCH ×4 (00:10→18:17)
[2018-02-20] MEDS: LINEZOLID 600 MG PREMIX 300 ML IV SCH ×2 (00:10→12:18)
[2018-02-20] MEDS: METOPROLOL TARTRATE 25 MG TAB PO SCH ×2 (00:11→12:17)
[2018-02-20] MEDS: PROPOFOL 1000 MG/100 ML IV PRN ×3 (01:29→11:40)
[2018-02-20] MEDS: PIPERACIL-TAZO 4.5 GM PREMIX 100 ML IV SCH ×3 (03:33→14:12)
[2018-02-20] MEDS: CHLORHEXIDINE GLUCONATE 2 % 1 PACK (2 CLOTHS) TOP SCH (03:33)
--- NOTE | 2018-02-20 04:04 | RADRPT ---
EXAM DATE/TIME: 02/20/2018 03:11 [facility] COMPARISON: CT THORAX W/O CONTRAST, February 19, 2018, 13:36. CHEST SINGLE AP, February 18, 2018, 12:14. INDICATIONS : Short of breath. MEDICAL HISTORY : sepsis SURGICAL HISTORY : Gastric bypass. Tonsillectomy. chest tubes x 4 ENCOUNTER: Subsequent ACUITY: 2 weeks PAIN SCORE: 0/10 LOCATION: Bilateral chest FINDINGS: Widespread bilateral patchy pneumonia again noted, not significant changed. There is a small moderate left pleural effusion, also similar to before. Bilateral chest tubes are present. There is a small r ight hydropneumothorax again seen, not significantly changed. No left pneumothorax seen. Heart size stable, within normal limits. Tracheostomy tube again noted. Nasogastric tube courses into the stomach. CONCLUSION: 1. Persistent bilateral pneumonia. 2. Small right hydropneumothorax. 3. Moderate left pleural effusion. Michael Espinoza MD on February 20, 2018 at 4:01 Board Certified Radiologist. This report was verified electronically.
[2018-02-20] MEDS: fentaNYL 2,500 MCG/NS 250 ML IV PRN ×2 (05:01→14:14)
[2018-02-20] MEDS: INSULIN ASPART SUPPLEMENTAL SCALE SQ SCH ×4 (06:00→18:18)
[2018-02-20 08:17] LABS: AUTOMATED NEUTROPHIL # 15.1 TH/MM3 (1.8-7.7); BASOPHIL # 0.1 TH/MM3 (0-0.2); BASOPHIL % 0.6 % (0.0-2.0); EOSINOPHIL # 1.5 TH/MM3 (0-0.4); EOSINOPHIL % 7.8 % (0.0-4.0); HEMATOCRIT 24.5 % (35.0-46.0); LYMPH % 7.3 % (9.0-44.0); LYMPHOCYTE # 1.4 TH/MM3 (1.0-4.8); MEAN CELL VOLUME 84.7 FL (80.0-100.0); MEAN CORPUSCULAR HEMOGLOBIN 27.7 PG (27.0-34.0); MEAN CORPUSCULAR HGB CONC 32.8 % (32.0-36.0); MEAN PLATELET VOLUME 7.5 FL (7.0-11.0); MONO % 4.8 % (0.0-8.0); MONOCYTE # 0.9 TH/MM3 (0-0.9); NEUT % 79.5 % (16.0-70.0); PLATELET COUNT 432 TH/MM3 (150-450); RED CELL DISTRIBUTION WIDTH 16.2 % (11.6-17.2)
[2018-02-20] MEDS: CHLORHEXIDINE 0.12% (ORAL KIT) 15 ML CUP MT SCH ×2 (08:20→19:49)
[2018-02-20] MEDS: ASPIRIN 81 MG CHEW TAB CHEW SCH (08:21)
[2018-02-20] MEDS: SODIUM CHLORIDE 0.9% FLUSH 10 ML FLUSH IV FLUSH SCH ×2 (08:21→19:50)
[2018-02-20] MEDS: FAMOTIDINE 20 MG TAB PO SCH ×2 (08:21→19:48)
[2018-02-20] MEDS: DOCUSATE SODIUM 50 MG/SENNA 8.6 MG TAB PO SCH ×2 (08:21→19:49)
[2018-02-20 08:47] LABS: ALBUMIN 1.2 GM/DL (3.4-5.0); ALT (GPT) 34 U/L (10-53); AST (GOT) 27 U/L (15-37); BICARBONATE 30.9 MEQ/L (21.0-32.0); BLOOD UREA NITROGEN 11 MG/DL (7-18); CALCIUM 8.6 MG/DL (8.5-10.1); CHLORIDE 99 MEQ/L (98-107); CREATININE 0.56 MG/DL (0.50-1.00); GLOMERULAR FILTRATION RATE 110 ML/MIN (>89); GLUCOSE,RANDOM 135 MG/DL (74-106); MAGNESIUM 2.3 MG/DL (1.5-2.5); SODIUM (NA) 138 MEQ/L (136-145)
[2018-02-20 08:50] LABS: ALKALINE PHOSPHATASE 362 U/L (45-117); TOTAL PROTEIN 7.8 GM/DL (6.4-8.2)
[2018-02-20 09:15] LABS: BANDS 5 % (0-6); CORRECTED NUCLEATED RBC 1 /100 WBC (0-0); LYMPHOCYTES 4 % (9-44); MONOCYTES 6 % (0-8); MYELOCYTES 3 % (0-0); NUCLEATED RED BLOOD CELL 1 (0-0); POLYS (SEG NEUTROPHILS) 76 % (16-70)
[2018-02-20] MEDS: LABETALOL HCL 100 MG/20 ML VIAL IV PUSH PRN ×2 (09:38→18:23)
--- NOTE | 2018-02-20 12:28 | HHI.CCPN ---
Subjective Remarks/Hospital Course 01/30: 62-year-old female presents for evaluation of increasing shortness of breath and chest pain. She reports 1 week of coughing 3 days of pain in her left chest which radiates to her back, which prompted the visit to the emergency room yesterday. She rates her pain a 6 out of 10. She reports fevers , chills, fatigue, mild nausea. She denies any abdominal pain, vomiting. Patient denies any significant past medical history. Symptom onset was gradual , symptom severity is severe, there are no alleviating factors. Patient states that she has been taking the azithromycin antibiotics that were prescribed to her. She denies any current or historical tobacco use. 01/31: Intubated at 1 AM this morning and placed on mechanical ventilation due to worsening respiratory distress. Currently sedated, orally intubated on mechanical ventilation. 02/01: Remains sedated, orally intubated on mechanical ventilation. Went into A. fib with RVR this morning. Loaded with amiodarone, started on amiodarone drip and given digoxin 0.5 mg IV 02/02: Remains sedated, orally intubated on mechanical ventilation. Right sided pigtail catheter in place with 1+ air leak. Converted to sinus rhythm overnight. Remains on amiodarone gtt. 02/03: Remains sedated, orally intubated on mechanical ventilation. 1+ air leak and right sided pigtail catheter. Tolerating tube feeds. Remains on amiodarone gtt. 02/04: Noted to have pneumothorax on the left side this morning on routine chest x -ray which appeared to be under tension. Right sided pigtail catheter placed by Dr. Peña with reexpansion of lung. Patient remains sedated, orally intubated on mechanical ventilation. 1+ airleak and bilateral chest tubes noted. 02/05: Afebrile. Persistent leukocytosis, bilateral chest tubes continue on wall suction. Chest x-ray pending this a.m.. Patient scheduled for GRANT today, discussed with Dr. Vázquez. Patient continues on amiodarone infusion with sinus rhythm. Postprocedure GRANT,this afternoon, the patient became extremely agitated, noted significant increase in subcu emphysema, peak pressures 50's, O2 saturation significantly decreased to 78-80 %. Stat chest x-ray performed patient was noted to have a significant right pneumothorax. 20 Gabonese right chest tube placement emergently, with increase in O2 saturation decrease in peak inspiratory pressures. 02/06: Afebrile. Patient with persistent bilateral pneumothoraces, with diffuse bilateral infiltrates and massive SQ emphysema. O2 requirement significantly increased during the night, PIP 38-44. 28 F chest tubes were placed bilaterally with resolution of left pneumothorax and minimization of right pneumothorax, and improved oxygenation. 02/07: TMax 100.1 Chest tubes remain on suction. Resolution of pneumothoraces, continued extensive SQ emphysema. Persistent leukocytosis noted. FiO2 weaned to 50%. 02/08: Late entry note patient seen at 1250. Attempts at CPAP trials, unsuccessful this morning. FiO2 decreased 50%, with adequate oxygenation. 02/09: Afebrile. The patient was transitioned to CPAP trials with pressure support of 22/8. FiO2 currently at 55% continuing to wean. Patient noted with positive fluid balance Lasix 40 mg IV now, patient is initiated on Lasix 40 daily. Patient with positive air leak in chest tubes #1-28 Gabonese right and #3 pigtail left, both at 2+. Sedation vacation initiated early this a.m. patient neurologically intact. Patient continues on moderate sedation for CPAP to maintain ventilator synchrony plan for transitioning to Precedex. Noted improvement with subcu emphysema. Extensive discussion with patient's daughter regarding a possibility of a tracheostomy if unsuccessful with ventilator weaning process. 02/10: Subcutaneous emphysema has worsened overnight per RN who took care of the patient yesterday, now extending to the upper chest left neck and to the left side of the face including left eyelids. No increase in FiO2 requirement currently on 55%. I have reduced inspiratory pressure from 32 to 28. FiO2 reduced to 50%. Will check a repeat chest x-ray in afternoon if needed. Will request CT surgical evaluation for persistent subcutaneous emphysema despite 2 chest tubes bilaterally 02/11 Patient is sedated with Diprivan, Versed and Fentanyl drips. T: 101.[address] guided chest tube placement by IR today 02/12 No events overnight. Remains sedated and intubated. Afebrile. On PC/AC with PEEP: 8 and FIO2 40%. 02/13 Patient remains intubated and heavily sedated. Afebrile. Repeat CT chest yesterday showed loculated anterior left pneumothorax has resolved. A small left pleural effusion remains present and the 2 left chest tubes appear to be in good position to drain the fluid. Significant improvement in the bilateral chest wall subcutaneous emphysema. 02/14 Patient remains sedated and intubated. Afebrile. On Bumex drip 0.5mg/hr. 02/15 Patient remains intubated and sedated, On Bumex drip 0.5mg/hr with good urine output. T:100.1 02/16 Patient remains sedated and intubated. Off Bumex drip. Afebrile. 02/17 Remains intubated and sedated with Diprivan and Fentanyl drips. Afebrile. For trach tomorrow. 02/18: Trach anticipated for today. Remains sedated. Family at the bedside updated. Coags are normal 02/19: Tracheostomy performed yesterday, patient now with increasing oxygen requirement more critical. Currently on 70% FiO2. A stat CT of the chest ordered by ID shows persistent consolidation multilobar with multiple cavitations. Family updated at the bedside. At this time do not appear to be adequately responding to treatment 02/20: Remains critical with high FiO2 and PEEP requirements. CT chest yesterday showed persistent consolidation and cavitation and a moderate-sized left pleural effusion. Sputum culture again growing MRSA. White count increased to 19,000 today. Left pleural effusion need to be drained, consult IR for CT guided chest tube, due to worsening sepsis Objective Vital Signs Date Time Temp Pulse Resp B/P (MAP) Pulse Ox O2 Delivery O2 Flow Rate FiO2 02/20/18 08:10 93 45 02/20/18 06:00 98 02/20/18 04:00 99.0 24 132/78 (96) Intake and Output 02/20/18 02/20/18 02/21/18 08:00 16:00 00:00 Intake Total 910 ml Output Total 1000 ml Balance -90 ml Result Diagram: 02/20/18 0726 02/20/18 0726 Imaging Last Impressions Chest X-Ray 02/17/18 0000 Signed Impressions: Service Date/Time: Saturday, February 17, 2018 04:00 - CONCLUSION: 1. Patchy alveolar disease characteristic of edema or pneumonia. There has been no significant change when compared to the prior exam. To Vaughn MD Chest CT 02/12/18 1334 Signed Impressions: Service Date/Time: Monday, February 12, 2018 14:07 - CONCLUSION: 1. The loculated anterior left pneumothorax has resolved. A small left pleural effusion remains present and the 2 left chest tubes appear to be in good position to drain the fluid. 2. Significant improvement in the bilateral chest wall subcutaneous emphysema. 3. Stable severe kinking of the large bore right chest tube. This chest tube also extends into the fissure. Given these 2 findings, this likely not providing any significant suction. Consider removal. 4. Stable severe bilateral airspace consolidation with multifocal areas of cavitation. Michael Perea MD Liver Ultrasound 02/11/18 0000 Signed Impressions: Service Date/Time: Sunday, February 11, 2018 09:34 - CONCLUSION: Nondiagnostic examination CT scan is recommended for further evaluation if clinically indicated. To Vaughn MD Neck CT 02/10/18 0000 Signed Impressions: Service Date/Time: Saturday, February 10, 2018 14:57 - CONCLUSION: 1. Extensive subcutaneous edema in the neck which has dissected cephalad from the chest and is worse on the left side. 2. Support apparatus as above. See chest CT report for evaluation of lungs. 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 No adenopathy. Everett Ng MD Procedures 02/05- Right emergent 20 F chest tube placement 02/06: Left 28 Gabonese chest tube placement, right chest tube replacement 28 Gabonese Objective Remarks HEENT: Sedated, Pallor present, no icterus, tongue/ mucosa moist SQ emphysema resolved mostly. Neck: No JVD. Needs tracheostomy in place with no significant bleed Chest/Pulm: on mech vent, air entry decreased bilaterally at bases, scattered rhonchi bilaterally. Bilateral pigtail catheters insitu., and 28F chest tubes bilaterally to -40cm H20. CVS: S1-S2 regular, no murmur GI/abdomen: soft, nontender, bowel sounds hypoactive Neuro: RASS -2, currently on fentanyl, propofol and Versed infusions. Patient moving extremities only weakly, Grimaces to pain Extremities: warm bilaterally, 1+bilateral peripheral edema upper and lower extremities A/P Assessment and Plan Neuro: Neuro checks per ICU protocol Propofol and fentanyl to maintain ventilator synchrony. Daily sedation vacation Pulm: Acute hypoxemic respiratory failure MRSA pneumonia, with multiple cavitations and consolidation COPD Persistent bilateral pneumothorax, significant subcutaneous emphysema ?Post Influenza pneumonia Continue vent support keep sats >90%, s/p Trach 02/18 On PRVC RR 16, TV 500, IT:1.0, PEEP:8, FIO2: 50%. PEEP 10. Attempt CPAP as tolerated CT chest on 02/19/2018 showed bilateral consolidation extensive, cavitating lesions, moderate loculated left effusion D/W IR. Consult for CT guided L chest tube placement and removed previous left pig tail DuoNeb scheduled and when necessary. SBT daily as bernarda. Bilateral pigtail catheters and [address](4 total)-has no output now Repeat CT chest 02/12 The loculated anterior left pneumothorax has resolved. the 2 left chest tubes appear to be in good position to drain the fluid. Significant improvement in the bilateral chest wall subQ emphysema. Stable severe bilateral airspace consolidation with multifocal areas of cavitation. Thoracic surgery is following- Dr. Thornton. Renal: Acute kidney injury-resolved Dehydration-resolved -Maintain Alexandre -Monitor renal function, I/O's, electrolytes replacement per protocol. Cardiovascular: A. fib with RVR (converted to NSR 02/02) -02/05 amiodarone infusion discontinued. - 02/05 GRANT -no valvular vegetations. EF 55-60%, trace MVR, mild TVR, PAP 35 Monitor HR and BP keep MAP>65mmHfg On Cardizem 60mg Q6, Lopressor 25mg Q12 GI Elevated LFT;s ( trending down) Hepatitis profile: Negative. US liver: non-diagnostic study -Tube feeds Jevity 1.5 60 cc/hr at goal,- On Pepcid 20mg BID Consulted GI for PEG tube placement ID: MRSA, Enterobacter pneumonia MRSA Bacteremia - Antibiotics per ID. On Zyvox and Zosyn. Persistent MRSA and sputum -CT chest showing persistent consolidation and cavitation -Monitor for signs of infections ( Fever, WBC) -ID- Dr. Singleton following. 02/10, 02/15, 02/17 Sputum: MRSA 02/10 BC: NGTD Endocrine: Hyperglycemia Medium scale sliding scale insulin dosing Glucose monitoring per ICU protocol DVT GI prophylaxis - Teds SCDs - Subcutaneous heparin - Pepcid Lines: peripheral IV's. Palliative care is following Code status: Alternative code CCT 35 Sarita Rodriguez MD Feb 20, 2018 12:28
--- NOTE | 2018-02-20 14:31 | HHI.IDPN ---
Subjective Subjective Remarks remains on vent, up to 45% FiO2, PEEP 8 no fever Intermittently low BP not on pressors CTs x 4, no airleak, no drainage sp trach PEG was attempted, but theyu could not get it 2/2 prior gastric bypass intermittent low grade fevers again growing MRSA from the sputum Antibiotics Zyvox IV Lines Line sites with no e.o infection Past Medical History Gastric bypass Tonsillectomy Allergies: Coded Allergies: No Known Allergies (Unverified , 01/30/18) Objective . Vital Signs Date Time Temp Pulse Resp B/P (MAP) Pulse Ox O2 Delivery O2 Flow Rate FiO2 02/20/18 08:10 93 45 02/20/18 08:00 98.8 102 19 181/83 (115) 99 02/20/18 06:00 98 02/20/18 04:20 100 55 02/20/18 04:00 60 02/20/18 04:00 96 02/20/18 04:00 99.0 97 24 132/78 (96) 100 02/20/18 03:00 82 20 125/61 (82) 100 02/20/18 02:00 91 02/20/18 02:00 84 20 108/56 (73) 97 02/20/18 01:22 99 55 02/20/18 01:00 84 20 127/61 (83) 100 02/20/18 00:00 88 02/20/18 00:00 60 02/20/18 00:00 98.4 83 20 107/57 (74) 100 02/19/18 22:55 100 60 02/19/18 22:00 84 02/19/18 20:00 98.3 84 20 110/55 (73) 97 02/19/18 20:00 60 02/19/18 20:00 84 02/19/18 19:30 98 60 02/19/18 18:00 89 02/19/18 16:09 96 60 02/19/18 16:00 86 02/19/18 16:00 60 02/19/18 16:00 99.1 90 20 94/51 (65) 96 . Laboratory Tests Test 02/20/18 07:26 White Blood Count 19.0 TH/MM3 Red Blood Count 2.90 MIL/MM3 Hemoglobin 8.0 GM/DL Hematocrit 24.5 % Mean Corpuscular Volume 84.7 FL Mean Corpuscular Hemoglobin 27.7 PG Mean Corpuscular Hemoglobin Concent 32.8 % Red Cell Distribution Width 16.2 % Platelet Count 432 TH/MM3 Mean Platelet Volume 7.5 FL Neutrophils (%) (Auto) 79.5 % Lymphocytes (%) (Auto) 7.3 % Monocytes (%) (Auto) 4.8 % Eosinophils (%) (Auto) 7.8 % Basophils (%) (Auto) 0.6 % Neutrophils # (Auto) 15.1 TH/MM3 Lymphocytes # (Auto) 1.4 TH/MM3 Monocytes # (Auto) 0.9 TH/MM3 Eosinophils # (Auto) 1.5 TH/MM3 Basophils # (Auto) 0.1 TH/MM3 CBC Comment AUTO DIFF Differential Total Cells Counted 100 Neutrophils % (Manual) 76 % Band Neutrophils % 5 % Lymphocytes % 4 % Monocytes % 6 % Eosinophils % 6 % Neutrophils # (Manual) 16.0 TH/MM3 Myelocytes 3 % Nucleated Red Blood Cells 1 /100 WBC Differential Comment FINAL DIFF MANUAL Platelet Estimate HIGH Platelet Morphology Comment NORMAL Laboratory Tests Test 02/20/18 07:26 Blood Urea Nitrogen 11 MG/DL Creatinine 0.56 MG/DL Random Glucose 135 MG/DL Total Protein 7.8 GM/DL Albumin 1.2 GM/DL Calcium Level 8.6 MG/DL Magnesium Level 2.3 MG/DL Alkaline Phosphatase 362 U/L Aspartate Amino Transf (AST/SGOT) 27 U/L Alanine Aminotransferase (ALT/SGPT) 34 U/L Total Bilirubin 1.0 MG/DL Sodium Level 138 MEQ/L Potassium Level 3.4 MEQ/L Chloride Level 99 MEQ/L Carbon Dioxide Level 30.9 MEQ/L Anion Gap 8 MEQ/L Estimat Glomerular Filtration Rate 110 ML/MIN Microbiology Date/Time Source Procedure Growth Status 02/19/18 14:03 Blood Peripheral Aerobic Blood Culture - Preliminary NO GROWTH IN 1 DAY Resulted 02/19/18 14:03 Blood Peripheral Anaerobic Blood Culture - Preliminary NO GROWTH IN 1 DAY Resulted 02/19/18 14:03 Blood Peripheral Aerobic Blood Culture - Preliminary NO GROWTH IN 1 DAY Resulted 02/19/18 14:03 Blood Peripheral Anaerobic Blood Culture - Preliminary NO GROWTH IN 1 DAY Resulted 02/17/18 18:00 Sputum Endotracheal Gram Stain - Final Resulted 02/17/18 18:00 Sputum Culture - Preliminary S. Aureus Mrsa Resulted Imaging Last Impressions Chest X-Ray 02/20/18 0600 Signed Impressions: Service Date/Time: Tuesday, February 20, 2018 03:11 - CONCLUSION: 1. Persistent bilateral pneumonia. 2. Small right hydropneumothorax. 3. Moderate left pleural effusion. Michael Espinoza MD Chest CT 02/19/18 0000 Signed Impressions: Service Date/Time: Monday, February 19, 2018 13:36 - CONCLUSION: 1. Multilobar consolidation with multiple cavities, not significantly changed. Differential possibilities are again noted to include septic emboli, TB and fungal etiologies including necrotizing process and autoimmune process such as Britton's. 2. Small right anterobasilar pneumothorax. Right-sided chest tube likely nonfunctional. 3. 2 left-sided chest tubes with loculated left pleural effusion, slightly more prominent on current study. Karri Muhammad MD Abdomen X-Ray 02/18/18 0000 Signed Impressions: Service Date/Time: Sunday, February 18, 2018 15:47 - CONCLUSION: 1. Suction type NGT in the region of the GE junction. Romeo Espinoza MD Liver Ultrasound 02/11/18 0000 Signed Impressions: Service Date/Time: Sunday, February 11, 2018 09:34 - CONCLUSION: Nondiagnostic examination CT scan is recommended for further evaluation if clinically indicated. To Vaughn MD Neck CT 02/10/18 0000 Signed Impressions: Service Date/Time: Saturday, February 10, 2018 14:57 - CONCLUSION: 1. Extensive subcutaneous edema in the neck which has dissected cephalad from the chest and is worse on the left side. 2. Support apparatus as above. See chest CT report for evaluation of lungs. 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 No adenopathy. Everett Ng MD Physical Exam CONSTITUTIONAL/GENERAL: On the vent SKIN: No jaundice, rashes, or lesions. Ecchymoses on upper extremities. Skin temperature appropriate. generalized edema previous Sq emphysema resolved HEAD: Atraumatic. Normocephalic. EYES: Pupils equal and round and reactive. No scleral icterus. No injection or drainage. ENT: No nasal discharge, orally intubated NECK: Supple, nontender. CARDIOVASCULAR: Regular rate and rhythm without murmurs, gallops, or rubs. RESPIRATORY/CHEST: Symmetric, unlabored respirations. Rhonchi b/l. CTx2 on R and CT x 2 on the L GASTROINTESTINAL: Abdomen soft, nondistended. Obese. No reaction to palpation , not guarding. GENITOURINARY: Without palpable bladder distension. Alexandre catheter in place. MUSCULOSKELETAL: Extremities without clubbing, cyanosis, + 3 diffuse edema. . NEUROLOGICAL: sedated lightly does not track, eyes opened not following commands PSYCHIATRIC: appears calm LINE: no evidence of infection Assessment & Plan Remarks IMPRESSION MRSA PNA Multiple b/l pneumothoraces ? postinfluenza PNA Loculated hydropneumothorax: ? empyema Acute VDRF not weaning ; in fact worse High grade , sustained MRSA bacteremia GRANT negative Severe leukocytosis and bandemia New PNA, Enterobacter (panS) along with MRSA Empyema and multiple cavitary lesions - essentaially necrotizing PNA - no e/o endocarditis - CTS not planning to do any sx - CT was reviewed with radilogist and Dr Rodriguez: PLAN fu P sputum ( neg @ 1 day) Continue Zyvox. Monitor Hb, platelets and HCO3. leobardo coradosytashia will add teflaro will follow repeat sensitivity on MRSA CT placement is planned dw Dr Michael Singleton,Carlene Torres MD Feb 20, 2018 14:31
[2018-02-20] MEDS: CEFTAROLINE INJ 600 MG in SODIUM CHLORIDE 0.9% INJ 100 ML IV SCH (18:17)
--- NOTE | 2018-02-20 19:41 | HHI.PR ---
Subjective Remarks 62 YO Female with VDRF,PTx, 4 Chest tubes 2 chest tubes have airleak Sedated with Fentanyl CT Chest worsening bilat infilt Tolerates CPAP 26/06 with Fi02 55% Objective Vital Signs Vital Signs Date Time Temp Pulse Resp B/P (MAP) Pulse Ox O2 Delivery O2 Flow Rate FiO2 02/20/18 18:00 93 02/20/18 16:00 98.9 90 22 174/76 (108) 94 02/20/18 16:00 90 02/20/18 16:00 02/20/18 16:00 50 02/20/18 14:00 91 02/20/18 12:00 50 02/20/18 12:00 98.7 101 23 187/84 (118) 95 02/20/18 12:00 101 02/20/18 10:00 87 02/20/18 08:10 93 45 02/20/18 08:00 98.8 102 19 181/83 (115) 99 02/20/18 08:00 60 02/20/18 08:00 102 02/20/18 06:00 98 02/20/18 04:20 100 55 02/20/18 04:00 60 02/20/18 04:00 96 02/20/18 04:00 99.0 97 24 132/78 (96) 100 02/20/18 03:00 82 20 125/61 (82) 100 02/20/18 02:00 91 02/20/18 02:00 84 20 108/56 (73) 97 02/20/18 01:22 99 55 02/20/18 01:00 84 20 127/61 (83) 100 02/20/18 00:00 88 02/20/18 00:00 60 02/20/18 00:00 98.4 83 20 107/57 (74) 100 02/19/18 22:55 100 60 02/19/18 22:00 84 02/19/18 20:00 98.3 84 20 110/55 (73) 97 02/19/18 20:00 60 02/19/18 20:00 84 I/O 02/19/18 02/19/18 02/19/18 02/20/18 02/20/18 02/20/18 07:00 15:00 23:00 07:00 15:00 23:00 Intake Total 792 ml 310 ml 860 ml 910 ml 50 ml Output Total 650 ml 800 ml 1000 ml 1033 ml Balance 142 ml 310 ml 60 ml -90 ml -983 ml IV Total 732 ml 310 ml 820 ml 850 ml Tube Irrigant 40 ml Other 60 ml 60 ml 50 ml Output Urine Total 650 ml 800 ml 1000 ml 1025 ml Chest Tube Drainage Total 0 ml 0 ml 0 ml 8 ml # Voids 0 # Bowel Movements 0 0 0 Result Diagram: 02/20/1872502/20/18725 Objective Remarks GENERAL: WBWN Female, on Vent, sedated SKIN: Warm and dry. HEAD: Normocephalic. EYES: No scleral icterus. No injection or drainage. NECK: Supple, trachea midline. No JVD or lymphadenopathy. CARDIOVASCULAR: Regular rate and rhythm without murmurs, gallops, or rubs. RESPIRATORY: Breath sounds equal bilaterally. No accessory muscle use. [address] SQ Emphysema. GASTROINTESTINAL: Abdomen soft, non-tender, nondistended. MUSCULOSKELETAL: No cyanosis, or edema. BACK: Nontender without obvious deformity. No CVA tenderness. A/P Assessment and Plan VDRF Post Influenza Pn MRSA PTX PLAN: Cont Vent support Cont Abx TF Chest tubes to suction. Sedation with Fentanyl., and Diprivan Cont CPAP Rest with ACV Dru Pride MD Feb 20, 2018 19:41
[2018-02-21] VITALS (34 sets, daily range): BP systolic 133–171; BP diastolic 63–81; PULSE 75–100; RESP 16–29; TEMP 97.4–98.9; O2SAT 92–100
[2018-02-21] MEDS: DILTIAZEM HCL 30 MG TAB PO SCH ×4 (00:09→17:21)
[2018-02-21] MEDS: LINEZOLID 600 MG PREMIX 300 ML IV SCH ×2 (00:09→17:09)
[2018-02-21] MEDS: METOPROLOL TARTRATE 25 MG TAB PO SCH ×2 (00:09→17:09)
[2018-02-21] MEDS: PROPOFOL 1000 MG/100 ML IV PRN ×4 (01:07→21:45)
[2018-02-21] MEDS: fentaNYL 2,500 MCG/NS 250 ML IV PRN ×2 (02:35→17:50)
[2018-02-21] MEDS: CHLORHEXIDINE GLUCONATE 2 % 1 PACK (2 CLOTHS) TOP SCH (02:37)
[2018-02-21] MEDS: CEFTAROLINE INJ 600 MG in SODIUM CHLORIDE 0.9% INJ 100 ML IV SCH ×2 (02:37→17:01)
[2018-02-21] MEDS: LABETALOL HCL 100 MG/20 ML VIAL IV PUSH PRN (02:44)
[2018-02-21] MEDS: INSULIN ASPART SUPPLEMENTAL SCALE SQ SCH ×4 (05:04→17:21)
[2018-02-21] MEDS: SODIUM CHLORIDE 0.9% FLUSH 10 ML FLUSH IV FLUSH PRN (05:12)
[2018-02-21] MEDS: hydrALAZINE HCL 20 MG/ML VIAL IV PUSH PRN (05:12)
[2018-02-21] MEDS: CHLORHEXIDINE 0.12% (ORAL KIT) 15 ML CUP MT SCH ×2 (08:00→20:16)
[2018-02-21] MEDS: SODIUM CHLORIDE 0.9% FLUSH 10 ML FLUSH IV FLUSH SCH ×2 (09:00→20:15)
--- NOTE | 2018-02-21 09:43 | HHI.CCPN ---
Subjective Remarks/Hospital Course 01/30: 62-year-old female presents for evaluation of increasing shortness of breath and chest pain. She reports 1 week of coughing 3 days of pain in her left chest which radiates to her back, which prompted the visit to the emergency room yesterday. She rates her pain a 6 out of 10. She reports fevers , chills, fatigue, mild nausea. She denies any abdominal pain, vomiting. Patient denies any significant past medical history. Symptom onset was gradual , symptom severity is severe, there are no alleviating factors. Patient states that she has been taking the azithromycin antibiotics that were prescribed to her. She denies any current or historical tobacco use. 01/31: Intubated at 1 AM this morning and placed on mechanical ventilation due to worsening respiratory distress. Currently sedated, orally intubated on mechanical ventilation. 02/01: Remains sedated, orally intubated on mechanical ventilation. Went into A. fib with RVR this morning. Loaded with amiodarone, started on amiodarone drip and given digoxin 0.5 mg IV 02/02: Remains sedated, orally intubated on mechanical ventilation. Right sided pigtail catheter in place with 1+ air leak. Converted to sinus rhythm overnight. Remains on amiodarone gtt. 02/03: Remains sedated, orally intubated on mechanical ventilation. 1+ air leak and right sided pigtail catheter. Tolerating tube feeds. Remains on amiodarone gtt. 02/04: Noted to have pneumothorax on the left side this morning on routine chest x -ray which appeared to be under tension. Right sided pigtail catheter placed by Dr. Peña with reexpansion of lung. Patient remains sedated, orally intubated on mechanical ventilation. 1+ airleak and bilateral chest tubes noted. 02/05: Afebrile. Persistent leukocytosis, bilateral chest tubes continue on wall suction. Chest x-ray pending this a.m.. Patient scheduled for GRANT today, discussed with Dr. Vázquez. Patient continues on amiodarone infusion with sinus rhythm. Postprocedure GRANT,this afternoon, the patient became extremely agitated, noted significant increase in subcu emphysema, peak pressures 50's, O2 saturation significantly decreased to 78-80 %. Stat chest x-ray performed patient was noted to have a significant right pneumothorax. 20 Japanese right chest tube placement emergently, with increase in O2 saturation decrease in peak inspiratory pressures. 02/06: Afebrile. Patient with persistent bilateral pneumothoraces, with diffuse bilateral infiltrates and massive SQ emphysema. O2 requirement significantly increased during the night, PIP 38-44. 28 F chest tubes were placed bilaterally with resolution of left pneumothorax and minimization of right pneumothorax, and improved oxygenation. 02/07: TMax 100.1 Chest tubes remain on suction. Resolution of pneumothoraces, continued extensive SQ emphysema. Persistent leukocytosis noted. FiO2 weaned to 50%. 02/08: Late entry note patient seen at 1250. Attempts at CPAP trials, unsuccessful this morning. FiO2 decreased 50%, with adequate oxygenation. 02/09: Afebrile. The patient was transitioned to CPAP trials with pressure support of 22/8. FiO2 currently at 55% continuing to wean. Patient noted with positive fluid balance Lasix 40 mg IV now, patient is initiated on Lasix 40 daily. Patient with positive air leak in chest tubes #1-28 Japanese right and #3 pigtail left, both at 2+. Sedation vacation initiated early this a.m. patient neurologically intact. Patient continues on moderate sedation for CPAP to maintain ventilator synchrony plan for transitioning to Precedex. Noted improvement with subcu emphysema. Extensive discussion with patient's daughter regarding a possibility of a tracheostomy if unsuccessful with ventilator weaning process. 02/10: Subcutaneous emphysema has worsened overnight per RN who took care of the patient yesterday, now extending to the upper chest left neck and to the left side of the face including left eyelids. No increase in FiO2 requirement currently on 55%. I have reduced inspiratory pressure from 32 to 28. FiO2 reduced to 50%. Will check a repeat chest x-ray in afternoon if needed. Will request CT surgical evaluation for persistent subcutaneous emphysema despite 2 chest tubes bilaterally 02/11 Patient is sedated with Diprivan, Versed and Fentanyl drips. T: 101.[address] guided chest tube placement by IR today 02/12 No events overnight. Remains sedated and intubated. Afebrile. On PC/AC with PEEP: 8 and FIO2 40%. 02/13 Patient remains intubated and heavily sedated. Afebrile. Repeat CT chest yesterday showed loculated anterior left pneumothorax has resolved. A small left pleural effusion remains present and the 2 left chest tubes appear to be in good position to drain the fluid. Significant improvement in the bilateral chest wall subcutaneous emphysema. 02/14 Patient remains sedated and intubated. Afebrile. On Bumex drip 0.5mg/hr. 02/15 Patient remains intubated and sedated, On Bumex drip 0.5mg/hr with good urine output. T:100.1 02/16 Patient remains sedated and intubated. Off Bumex drip. Afebrile. 02/17 Remains intubated and sedated with Diprivan and Fentanyl drips. Afebrile. For trach tomorrow. 02/18: Trach anticipated for today. Remains sedated. Family at the bedside updated. Coags are normal 02/19: Tracheostomy performed yesterday, patient now with increasing oxygen requirement more critical. Currently on 70% FiO2. A stat CT of the chest ordered by ID shows persistent consolidation multilobar with multiple cavitations. Family updated at the bedside. At this time do not appear to be adequately responding to treatment 02/20: Remains critical with high FiO2 and PEEP requirements. CT chest yesterday showed persistent consolidation and cavitation and a moderate-sized left pleural effusion. Sputum culture again growing MRSA. White count increased to 19,000 today. Left pleural effusion need to be drained, consult IR for CT guided chest tube, due to worsening sepsis 02/21: Patient remains intubated sedated and critically ill. PEEP requirement still remains high and FiO2 is at 50%. Radiology to place new large bore pigtail chest tube for left pleural effusion which is loculated. Will remove the small pigtail chest tube after new one is placed. On sedation hold patient appears to be weak on left side. Check CT of the head also. Grossly fluid overloaded. We will start scheduled dialysis with IV Lasix. Teflaro added to Zyvox yesterday Objective Vital Signs Date Time Temp Pulse Resp B/P (MAP) Pulse Ox O2 Delivery O2 Flow Rate FiO2 02/21/18 08:11 100 50 02/21/18 06:00 92 02/21/18 04:00 98.4 17 149/67 (94) Intake and Output 02/21/18 02/21/18 02/22/18 08:00 16:00 00:00 Intake Total 650 ml Output Total 820 ml Balance -170 ml Result Diagram: 02/20/18 0726 02/20/18 0726 Imaging Last Impressions Chest X-Ray 02/17/18 0000 Signed Impressions: Service Date/Time: Saturday, February 17, 2018 04:00 - CONCLUSION: 1. Patchy alveolar disease characteristic of edema or pneumonia. There has been no significant change when compared to the prior exam. To Vaughn MD Chest CT 02/12/18 1334 Signed Impressions: Service Date/Time: Monday, February 12, 2018 14:07 - CONCLUSION: 1. The loculated anterior left pneumothorax has resolved. A small left pleural effusion remains present and the 2 left chest tubes appear to be in good position to drain the fluid. 2. Significant improvement in the bilateral chest wall subcutaneous emphysema. 3. Stable severe kinking of the large bore right chest tube. This chest tube also extends into the fissure. Given these 2 findings, this likely not providing any significant suction. Consider removal. 4. Stable severe bilateral airspace consolidation with multifocal areas of cavitation. Michael Perea MD Liver Ultrasound 02/11/18 0000 Signed Impressions: Service Date/Time: Sunday, February 11, 2018 09:34 - CONCLUSION: Nondiagnostic examination CT scan is recommended for further evaluation if clinically indicated. To Vaughn MD Neck CT 02/10/18 0000 Signed Impressions: Service Date/Time: Saturday, February 10, 2018 14:57 - CONCLUSION: 1. Extensive subcutaneous edema in the neck which has dissected cephalad from the chest and is worse on the left side. 2. Support apparatus as above. See chest CT report for evaluation of lungs. 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 No adenopathy. Everett Ng MD Procedures 02/05- Right emergent 20 F chest tube placement 02/06: Left 28 Japanese chest tube placement, right chest tube replacement 28 Japanese Objective Remarks HEENT: Sedated, Pallor present, no icterus, tongue/ mucosa moist SQ emphysema resolved mostly. Neck: No JVD. Needs tracheostomy in place with no significant bleed Chest/Pulm: [facility], air entry decreased bilaterally at bases, scattered rhonchi bilaterally. Bilateral pigtail catheters insitu., and 28F chest tubes bilaterally to -40cm H20. CVS: S1-S2 regular, no murmur GI/abdomen: soft, nontender, bowel sounds hypoactive Neuro: RASS -2, currently on fentanyl, propofol and Versed infusions. Patient moving right upper extremity spontaneously left upper extremity appears weaker. Withdraws bilateral lower extremity, Grimaces to pain Extremities: warm bilaterally, 1+bilateral peripheral edema upper and lower extremities A/P Assessment and Plan Neuro: Neuro checks per ICU protocol Propofol and fentanyl to maintain ventilator synchrony. Daily sedation vacation, as tolerated Pulm: Acute hypoxemic respiratory failure MRSA pneumonia, with multiple cavitations and consolidation COPD Bilateral pneumothorax, status post large bore chest tube ?Post Influenza pneumonia Continue vent support keep sats >90%, s/p Trach 02/18 On PRVC RR 16, TV 500, IT:1.0, PEEP:10, FIO2: 50%. Attempt SBT with high pressure support CT chest on 02/19/2018 showed bilateral consolidation extensive, cavitating lesions, moderate loculated left effusion CT-guided left chest tube placement today, removal small bore chest tube after the wound is placed DuoNeb scheduled and when necessary. Bilateral pigtail catheters and [address](4 total)-has no output now Repeat CT chest 02/12 The loculated anterior left pneumothorax has resolved. Significant improvement in the bilateral chest wall subQ emphysema. Stable severe bilateral airspace consolidation with multifocal areas of cavitation. Thoracic surgery is following- Dr. Thornton-not planning on any surgical intervention Renal: Acute kidney injury-resolved Dehydration-resolved -Maintain Alexandre -Monitor renal function, I/O's, electrolytes replacement per protocol. -See below for starting diuresis Cardiovascular: A. fib with RVR (converted to NSR 02/02) Significantly fluid overloaded -4/3 amiodarone infusion discontinued. -4/ GRANT -no valvular vegetations. EF 55-60%, trace MVR, mild TVR, PAP 35 -Start IV Lasix 40 mg every 12 hours patient is significantly fluid overloaded. Scheduled potassium supplements -On Cardizem 60mg Q6, Lopressor 25mg Q12 GI Elevated LFT;s ( trending down) Hepatitis profile: Negative. US liver: non-diagnostic study -Tube feeds Jevity 1.5 60 cc/hr at goal,- On Pepcid 20mg BID Consulted GI for PEG tube placement ID: MRSA, Enterobacter pneumonia MRSA Bacteremia -Antibiotics per ID. On Zyvox and Zosyn. Persistent MRSA and sputum -Started on Teflaro yesterday by ID due to inadequate response -CT chest showing persistent consolidation and cavitation, plan for chest tube for loculated left effusion tomorrow -Monitor for signs of infections ( Fever, WBC) -ID- Dr. Singleton following. 02/10, 02/15, 02/17 Sputum: MRSA 02/10 BC: NGTD Endocrine: Hyperglycemia Medium scale sliding scale insulin dosing Glucose monitoring per ICU protocol DVT GI prophylaxis - Teds SCDs - Subcutaneous heparin - Pepcid Lines: peripheral IV's. Palliative care is following Code status: Alternative code CCT 35 Sarita Rodriguez MD Feb 21, 2018 09:43
[2018-02-21] MEDS ORDERED: POTASSIUM CHLORIDE 25 MEQ EFFERVESCENT TAB PO SCH (10:00)
[2018-02-21] MEDS: ALBUMIN 25% INJ 50 ML IV SCH ×2 (10:44→21:45)
[2018-02-21] MEDS: DOCUSATE SODIUM 50 MG/SENNA 8.6 MG TAB PO SCH ×2 (10:45→20:15)
[2018-02-21] MEDS: FUROSEMIDE 40 MG/4 ML VIAL IV PUSH SCH ×2 (10:45→17:01)
[2018-02-21] MEDS: FAMOTIDINE 20 MG TAB PO SCH ×2 (10:46→20:15)
[2018-02-21] MEDS: ASPIRIN 81 MG CHEW TAB CHEW SCH (10:46)
--- NOTE | 2018-02-21 15:12 | PD.RAD ---
Post CT Procedure Prog Note Pre Procedure Diagnosis: (1) Pleural effusion Post Procedure Diagnosis: (1) Pleural effusion Procedure Date: Feb 21, 2018 Supervising Radiologist: Karri Muhammad Proceduralist/Assist: per mathews joanne Estimated blood loss: none Anesthesia: Conscious Sedation Plan of Activity Patient to Unit: ROPU Patient Condition: Good See PACS Report for procedural detail/treatment Karri Muhammad MD Feb 21, 2018 15:12
--- NOTE | 2018-02-21 15:20 | HHI.PR ---
cc: Kevin Nj MD Subjective Subjective Notes Critically ill; heading down to radiology Objective Vitals/I&O Vital Signs Date Time Temp Pulse Resp B/P (MAP) Pulse Ox O2 Delivery O2 Flow Rate FiO2 02/21/18 13:30 94 22 170/81 (110) 97 02/21/18 11:51 50 02/21/18 08:00 98.9 Labs Date/Time Source Procedure Growth Status 02/19/18 14:03 Blood Peripheral Aerobic Blood Culture - Preliminary NO GROWTH IN 2 DAYS Resulted 02/19/18 14:03 Blood Peripheral Anaerobic Blood Culture - Preliminary NO GROWTH IN 2 DAYS Resulted 02/10/18 13:53 Genital Vaginal Genital Culture - Final Klebsiella Pneumoniae Zelda Albicans Complete 02/17/18 18:00 Sputum Endotracheal Gram Stain - Final Complete 02/17/18 18:00 Sputum Culture - Final S. Aureus Mrsa Complete 01/31/18 07:42 Urine Catheterized Urine Urine Culture - Final NO GROWTH IN 48 HOURS. Complete Narrative Exam I was not able to examine the patient because they were leaving the room to go to radiology A/P Assessment and Plan 62 year old female with VDRF s/p trach placement; multiple medical problems -Going to Radiology for chest tube placement -New onset weakness---CT head today -Was planning to place open jejunostomy tube in OR tomorrow but in light of all that is going on with the patient today will postpone until next week -Discussed with Dr. Rodriguez -General Surgery will re-eval early next week for J-tube placement Attending Note - Dr. Nj Discussed with Dr. Rodriguez Agree with postponing procedure, as it is elective. The exam, history, and the medical decision-making described in the above note were completed with the assistance of the mid-level provider. I reviewed and agree with the findings presented. I attest that I had a [id number] encounter with the patient on the same day, and personally performed and documented my assessment and findings in the medical record. Monalisa,Adri B. PUBLIC ADDRESS SYSTEMS MECHANIC/Automatic Developer PUBLIC ADDRESS SYSTEMS MECHANIC Feb 21, 2018 15:20 Kevin Nj MD Feb 21, 2018 18:07
--- NOTE | 2018-02-21 15:37 | RADRPT ---
EXAM DATE/TIME: 02/21/2018 14:24 [facility] COMPARISON: No previous studies available for comparison. INDICATIONS : Left side weakness, altered mental status. RADIATION DOSE: 46.87 CTDIvol (mGy) MEDICAL HISTORY : Non-responsive. SURGICAL HISTORY : Non-responsive. ENCOUNTER: Initial ACUITY: 1 day PAIN SCALE: Non-responsive LOCATION: cranial TECHNIQUE: Multiple contiguous axial images were obtained of the head. Using automated exposure control and adj ustment of the mA and/or kV according to patient size, radiation dose was kept as low as reasonably a chievable to obtain optimal diagnostic quality images. DICOM format image data is available electro nically for review and comparison. FINDINGS: CEREBRUM: The ventricles are normal for age. No evidence of midline shift, mass lesion, hemorrhage or acute in farction. No extra-axial fluid collections are seen. POSTERIOR FOSSA: The cerebellum and brainstem are intact. The 4th ventricle is midline. The cerebellopontine angle i s unremarkable. EXTRACRANIAL: The visualized portion of the orbits is intact. Fluid in the mastoid air cells bilaterally. SKULL: The calvaria is intact. No evidence of skull fracture. CONCLUSION: 1. Bilateral mastoiditis. 2. Otherwise negative. No acute intracranial process to explain current clinical symptoms Gino Hernandez MD on February 21, 2018 at 15:32 Board Certified Radiologist. This report was verified electronically.
--- NOTE | 2018-02-21 16:25 | HHI.HCPN ---
Telephone call received from patient's sister, Kaye. She inquires about patient 's overall medical condition, brain function, and reports her and her sister Peg are "wondering about how much further we should let this go". Offered emotional support. Informed her as patient's daughters are her health care proxies, overall conversations would best be served with including them. Asked her to coordinate a time for Sunday (02/22) with daughters available by phone for another family meeting. Kaye verbalizes understanding and appreciates palliative care support with ongoing communication and goals of care discussion. She will contact palliative care when a time can be arranged. Family is looking for opinions from all involved specialist regarding overall prognosis, quality of life, etc. Palliative care will continue to follow throughout hospitalization with planned family meeting sometime tomorrow ( SundayFebruary 22). Zenobia Cifuentes, BAKESHOP CLEANER Feb 21, 2018 16:25
--- NOTE | 2018-02-21 16:39 | RADRPT ---
EXAM DATE/TIME: 02/21/2018 14:36 INDICATIONS : Loculated pleural effusion. DEVICE(S): 1.) 14 Fr Skater MEDICAL HISTORY : Non-responsive SURGICAL HISTORY : Non-responsive ENCOUNTER: Initial ACUITY: 1 day PAIN SCORE: Non-responsive LOCATION: Left chest PROCEDURE : 1. CT guided chest tube placement. 2. Conscious sedation with continuous EKG and oximetry monitoring. The risks, benefits and alternatives to the procedure were explained and verbal and written consent w as obtained. The site was prepped in sterile fashion. Full sterile technique was used, including ca p, mask, sterile gloves and gown and a large sterile sheet. Hand hygiene and 2% chlorhexidine and/or betadine/alcohol prep was utilized per protocol for cutaneous antisepsis. The skin and subcutaneous tissues were infiltrated with local anesthetic solution. Using automated exposure control and adjus tment of the mA and/or kV according to patient size, radiation dose was kept as low as reasonably ach ievable to obtain optimal diagnostic quality images. DICOM format image data is available electronic ally for review and comparison. With CT guidance the chest was punctured and the prescribed catheter was placed in the lung pleural s pace. Wall suction was applied. Post procedure images demonstrate satisfactory position of the tube. The catheter was sutured in place and a Percu-Stay was applied. Conscious sedation was performed with the prescribed dosages and duration as above. The patient caterina ated the procedure well and there were no complications. EKG and oximetry remained stable throughout the procedure. The patient was sent to post anesthesia recovery in stable condition. CONCLUSION: Uncomplicated chest tube placement as above. Karri Muhammad MD on February 21, 2018 at 16:36 Board Certified Radiologist. This report was verified electronically.
--- NOTE | 2018-02-21 16:53 | RADRPT ---
EXAM DATE/TIME: 02/21/2018 16:01 [facility] COMPARISON: CHEST SINGLE AP, February 20, 2018, 3:11. INDICATIONS : Post right chest tube. MEDICAL HISTORY : Sepsis. SURGICAL HISTORY : Gastric bypass. Tonsillectomy. chest tubes x 5 ENCOUNTER: Subsequent ACUITY: 2 weeks PAIN SCORE: Non-responsive. LOCATION: Right chest beneath breast FINDINGS: A single frontal expiratory view of the chest was performed. Bilateral thoracostomy tubes with a sing le, large bore single tube in each hemithorax. A single [place] loop thoracostomy tube projects over the right upper lung. 2 [place] loop thoracostomy tubes project over the left midlung. Diffuse bilateral ai rspace disease. Possible associated left-sided effusion. No pneumothorax. Tracheostomy tube with the tip at the clavicular heads. Nasogastric tube crosses the GE junction and extends off the inferior as pect of the image. Heart size appears to be grossly normal. Osseous structures are intact with some d egenerative spurring of the dorsal spine. CONCLUSION: 1. Multiple, bilateral thoracostomy tubes as above. No pneumothorax. 2. Bilateral airspace disease with possible left-sided effusion. No significant interval change. Gino Hernandez MD on February 21, 2018 at 16:48 Board Certified Radiologist. This report was verified electronically.
[2018-02-21] MEDS: RESP: ALBUTEROL 2.5 MG/IPRATROPIUM 0.5 MG NEB (SCH) NEB (19:54)
[2018-02-22] VITALS (76 sets, daily range): BP systolic 107–195; BP diastolic 53–93; PULSE 80–110; RESP 17–36; TEMP 97.8–98.9; O2SAT 88–100
[2018-02-22] MEDS: METOPROLOL TARTRATE 25 MG TAB PO SCH ×3 (01:00→23:13)
[2018-02-22] MEDS: CEFTAROLINE INJ 600 MG in SODIUM CHLORIDE 0.9% INJ 100 ML IV SCH ×2 (01:07→15:35)
[2018-02-22] MEDS: DILTIAZEM HCL 30 MG TAB PO SCH ×5 (01:10→23:14)
[2018-02-22] MEDS: LINEZOLID 600 MG PREMIX 300 ML IV SCH ×3 (01:10→23:13)
[2018-02-22] MEDS: PROPOFOL 1000 MG/100 ML IV PRN ×4 (02:30→23:13)
[2018-02-22] MEDS: CHLORHEXIDINE GLUCONATE 2 % 1 PACK (2 CLOTHS) TOP SCH (02:31)
[2018-02-22] MEDS: RESP: ALBUTEROL 2.5 MG/IPRATROPIUM 0.5 MG NEB (SCH) NEB ×4 (03:57→20:04)
[2018-02-22] MEDS: INSULIN ASPART SUPPLEMENTAL SCALE SQ SCH ×5 (05:00→23:14)
[2018-02-22] MEDS: fentaNYL 2,500 MCG/NS 250 ML IV PRN (05:01)
--- NOTE | 2018-02-22 05:06 | RADRPT ---
EXAM DATE/TIME: 02/22/2018 03:55 [facility] COMPARISON: CHEST SINGLE AP, February 20, 2018, 3:11. INDICATIONS : Respiratory disease. MEDICAL HISTORY : Sepsis. SURGICAL HISTORY : Gastric bypass. Tonsillectomy. chest tubes x 5 ENCOUNTER: Subsequent ACUITY: 1 day PAIN SCORE: Non-responsive. LOCATION: Bilateral chest FINDINGS: Since the previous examination there has been placement of a small caliber left chest tube. 2 chest t ubes remain on the right and now 2 chest tubes are seen on the left. No pneumothorax. Diffuse pulmona ry consolidations most pronounced on the right are unchanged. No effusions. Heart is normal in size. Tracheostomy tube and nasogastric tube noted. CONCLUSION: 2 thoracostomy tubes bilaterally. Unchanged bilateral pulmonary consolidations. Ilya Cifuentes Jr., MD on February 22, 2018 at 5:04 Board Certified Radiologist. This report was verified electronically.
[2018-02-22 05:25] LABS: AUTOMATED NEUTROPHIL # 13.7 TH/MM3 (1.8-7.7); BASOPHIL # 0.1 TH/MM3 (0-0.2); BASOPHIL % 0.5 % (0.0-2.0); EOSINOPHIL # 0.7 TH/MM3 (0-0.4); EOSINOPHIL % 4.2 % (0.0-4.0); HEMATOCRIT 23.6 % (35.0-46.0); HEMOGLOBIN 7.4 GM/DL (11.6-15.3); LYMPH % 7.5 % (9.0-44.0); LYMPHOCYTE # 1.3 TH/MM3 (1.0-4.8); MEAN CELL VOLUME 84.9 FL (80.0-100.0); MEAN CORPUSCULAR HEMOGLOBIN 26.8 PG (27.0-34.0); MEAN CORPUSCULAR HGB CONC 31.6 % (32.0-36.0); MEAN PLATELET VOLUME 7.3 FL (7.0-11.0); MONO % 6.1 % (0.0-8.0); NEUT % 81.7 % (16.0-70.0); PLATELET COUNT 416 TH/MM3 (150-450); RED BLOOD COUNT 2.77 MIL/MM3 (4.00-5.30); RED CELL DISTRIBUTION WIDTH 15.9 % (11.6-17.2); WHITE BLOOD COUNT 16.7 TH/MM3 (4.0-11.0)
[2018-02-22 05:37] LABS: ALBUMIN 1.3 GM/DL (3.4-5.0); AST (GOT) 14 U/L (15-37); BICARBONATE 33.7 MEQ/L (21.0-32.0); BLOOD UREA NITROGEN 8 MG/DL (7-18); CALCIUM 8.3 MG/DL (8.5-10.1); CHLORIDE 97 MEQ/L (98-107); CREATININE 0.54 MG/DL (0.50-1.00); GLOMERULAR FILTRATION RATE 114 ML/MIN (>89); GLUCOSE,RANDOM 190 MG/DL (74-106); SODIUM (NA) 138 MEQ/L (136-145)
[2018-02-22 05:39] LABS: ALT (GPT) 19 U/L (10-53)
[2018-02-22 05:41] LABS: ALKALINE PHOSPHATASE 288 U/L (45-117); TOTAL BILIRUBIN ADULT 0.5 MG/DL (0.2-1.0); TOTAL PROTEIN 7.4 GM/DL (6.4-8.2)
[2018-02-22] MEDS: CHLORHEXIDINE 0.12% (ORAL KIT) 15 ML CUP MT SCH ×2 (08:00→20:19)
--- NOTE | 2018-02-22 08:22 | HHI.CCPN ---
Subjective Remarks/Hospital Course 01/30: 62-year-old female presents for evaluation of increasing shortness of breath and chest pain. She reports 1 week of coughing 3 days of pain in her left chest which radiates to her back, which prompted the visit to the emergency room yesterday. She rates her pain a 6 out of 10. She reports fevers , chills, fatigue, mild nausea. She denies any abdominal pain, vomiting. Patient denies any significant past medical history. Symptom onset was gradual , symptom severity is severe, there are no alleviating factors. Patient states that she has been taking the azithromycin antibiotics that were prescribed to her. She denies any current or historical tobacco use. 01/31: Intubated at 1 AM this morning and placed on mechanical ventilation due to worsening respiratory distress. Currently sedated, orally intubated on mechanical ventilation. 02/01: Remains sedated, orally intubated on mechanical ventilation. Went into A. fib with RVR this morning. Loaded with amiodarone, started on amiodarone drip and given digoxin 0.5 mg IV 02/02: Remains sedated, orally intubated on mechanical ventilation. Right sided pigtail catheter in place with 1+ air leak. Converted to sinus rhythm overnight. Remains on amiodarone gtt. 02/03: Remains sedated, orally intubated on mechanical ventilation. 1+ air leak and right sided pigtail catheter. Tolerating tube feeds. Remains on amiodarone gtt. 02/04: Noted to have pneumothorax on the left side this morning on routine chest x -ray which appeared to be under tension. Right sided pigtail catheter placed by Dr. Peña with reexpansion of lung. Patient remains sedated, orally intubated on mechanical ventilation. 1+ airleak and bilateral chest tubes noted. 02/05: Afebrile. Persistent leukocytosis, bilateral chest tubes continue on wall suction. Chest x-ray pending this a.m.. Patient scheduled for GRANT today, discussed with Dr. Vázquez. Patient continues on amiodarone infusion with sinus rhythm. Postprocedure GRANT,this afternoon, the patient became extremely agitated, noted significant increase in subcu emphysema, peak pressures 50's, O2 saturation significantly decreased to 78-80 %. Stat chest x-ray performed patient was noted to have a significant right pneumothorax. 20 Irish right chest tube placement emergently, with increase in O2 saturation decrease in peak inspiratory pressures. 02/06: Afebrile. Patient with persistent bilateral pneumothoraces, with diffuse bilateral infiltrates and massive SQ emphysema. O2 requirement significantly increased during the night, PIP 38-44. 28 F chest tubes were placed bilaterally with resolution of left pneumothorax and minimization of right pneumothorax, and improved oxygenation. 02/07: TMax 100.1 Chest tubes remain on suction. Resolution of pneumothoraces, continued extensive SQ emphysema. Persistent leukocytosis noted. FiO2 weaned to 50%. 02/08: Late entry note patient seen at 1250. Attempts at CPAP trials, unsuccessful this morning. FiO2 decreased 50%, with adequate oxygenation. 02/09: Afebrile. The patient was transitioned to CPAP trials with pressure support of 22/8. FiO2 currently at 55% continuing to wean. Patient noted with positive fluid balance Lasix 40 mg IV now, patient is initiated on Lasix 40 daily. Patient with positive air leak in chest tubes #1-28 Irish right and #3 pigtail left, both at 2+. Sedation vacation initiated early this a.m. patient neurologically intact. Patient continues on moderate sedation for CPAP to maintain ventilator synchrony plan for transitioning to Precedex. Noted improvement with subcu emphysema. Extensive discussion with patient's daughter regarding a possibility of a tracheostomy if unsuccessful with ventilator weaning process. 02/10: Subcutaneous emphysema has worsened overnight per RN who took care of the patient yesterday, now extending to the upper chest left neck and to the left side of the face including left eyelids. No increase in FiO2 requirement currently on 55%. I have reduced inspiratory pressure from 32 to 28. FiO2 reduced to 50%. Will check a repeat chest x-ray in afternoon if needed. Will request CT surgical evaluation for persistent subcutaneous emphysema despite 2 chest tubes bilaterally 02/11 Patient is sedated with Diprivan, Versed and Fentanyl drips. T: 101.[address] guided chest tube placement by IR today 02/12 No events overnight. Remains sedated and intubated. Afebrile. On PC/AC with PEEP: 8 and FIO2 40%. 02/13 Patient remains intubated and heavily sedated. Afebrile. Repeat CT chest yesterday showed loculated anterior left pneumothorax has resolved. A small left pleural effusion remains present and the 2 left chest tubes appear to be in good position to drain the fluid. Significant improvement in the bilateral chest wall subcutaneous emphysema. 02/14 Patient remains sedated and intubated. Afebrile. On Bumex drip 0.5mg/hr. 02/15 Patient remains intubated and sedated, On Bumex drip 0.5mg/hr with good urine output. T:100.1 02/16 Patient remains sedated and intubated. Off Bumex drip. Afebrile. 02/17 Remains intubated and sedated with Diprivan and Fentanyl drips. Afebrile. For trach tomorrow. 02/18: Trach anticipated for today. Remains sedated. Family at the bedside updated. Coags are normal 02/19: Tracheostomy performed yesterday, patient now with increasing oxygen requirement more critical. Currently on 70% FiO2. A stat CT of the chest ordered by ID shows persistent consolidation multilobar with multiple cavitations. Family updated at the bedside. At this time do not appear to be adequately responding to treatment 02/20: Remains critical with high FiO2 and PEEP requirements. CT chest yesterday showed persistent consolidation and cavitation and a moderate-sized left pleural effusion. Sputum culture again growing MRSA. White count increased to 19,000 today. Left pleural effusion need to be drained, consult IR for CT guided chest tube, due to worsening sepsis 02/21: Patient remains intubated sedated and critically ill. PEEP requirement still remains high and FiO2 is at 50%. Radiology to place new large bore pigtail chest tube for left pleural effusion which is loculated. Will remove the small pigtail chest tube after new one is placed. On sedation hold patient appears to be weak on left side. Check CT of the head also. Grossly fluid overloaded. We will start scheduled dialysis with IV Lasix. Teflaro added to Zyvox yesterday 02/22: Continues to be requiring high oxygen currently at 50% PEEP at 8. New large bore pigtail chest tube placed on the left side yesterday with 200 mL output since placement. Bilateral previous pigtails to waterseal plan to remove the left original pigtail chest tube today. Patient continues to be encephalopathy Objective Vital Signs Date Time Temp Pulse Resp B/P (MAP) Pulse Ox O2 Delivery O2 Flow Rate FiO2 02/22/18 08:07 94 50 02/22/18 06:00 82 4/20/18 04:00 97.9 36 150/74 (99) Intake and Output 02/22/18 02/22/18 02/23/18 08:00 16:00 00:00 Intake Total 472 ml Output Total 1042 ml Balance -570 ml Result Diagram: 02/22/18 0454 02/22/18 0454 Imaging Last Impressions Chest X-Ray 02/17/18 0000 Signed Impressions: Service Date/Time: Saturday, February 17, 2018 04:00 - CONCLUSION: 1. Patchy alveolar disease characteristic of edema or pneumonia. There has been no significant change when compared to the prior exam. To Vaughn MD Chest CT 02/12/18 1334 Signed Impressions: Service Date/Time: Monday, February 12, 2018 14:07 - CONCLUSION: 1. The loculated anterior left pneumothorax has resolved. A small left pleural effusion remains present and the 2 left chest tubes appear to be in good position to drain the fluid. 2. Significant improvement in the bilateral chest wall subcutaneous emphysema. 3. Stable severe kinking of the large bore right chest tube. This chest tube also extends into the fissure. Given these 2 findings, this likely not providing any significant suction. Consider removal. 4. Stable severe bilateral airspace consolidation with multifocal areas of cavitation. Michael Perea MD Liver Ultrasound 02/11/18 0000 Signed Impressions: Service Date/Time: Sunday, February 11, 2018 09:34 - CONCLUSION: Nondiagnostic examination CT scan is recommended for further evaluation if clinically indicated. To Vaughn MD Neck CT 02/10/18 0000 Signed Impressions: Service Date/Time: Saturday, February 10, 2018 14:57 - CONCLUSION: 1. Extensive subcutaneous edema in the neck which has dissected cephalad from the chest and is worse on the left side. 2. Support apparatus as above. See chest CT report for evaluation of lungs. 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 No adenopathy. Everett Ng MD Procedures 02/05- Right emergent 20 F chest tube placement 02/06: Left 28 Irish chest tube placement, right chest tube replacement 28 Irish Objective Remarks HEENT: Sedated, Pallor present, no icterus, tongue/ mucosa moist SQ emphysema resolved mostly. Neck: No JVD. New tracheostomy in place with no significant bleed Chest/Pulm: on [facility] vent, air entry decreased bilaterally at bases, scattered rhonchi bilaterally. 28F chest tubes bilaterally to -40cm H20. Pigtails x2 in left, 1 on right CVS: S1-S2 regular, no murmur GI/abdomen: soft, nontender, bowel sounds hypoactive Neuro: RASS -2, currently on fentanyl, propofol infusions. Patient moving right upper extremity spontaneously left upper extremity appears weaker. Withdraws bilateral lower extremity, Grimaces to pain Extremities: warm bilaterally, 1+bilateral peripheral edema upper and lower extremities A/P Assessment and Plan Neuro: Acute metabolic encephalopathy Neuro checks per ICU protocol Propofol and fentanyl to maintain ventilator synchrony. DC continuous fentanyl Start scheduled oxycodone for pain, use as needed fentanyl, Morphine for pain Daily sedation vacation, as tolerated CT head negative for acute findings 02/21/2018 Pulm: Acute hypoxemic respiratory failure MRSA pneumonia, with multiple cavitations and consolidation Moderate sized left pleural effusion, ? empyema COPD Bilateral pneumothorax, status post large bore chest tube Post Influenza pneumonia Continue vent support keep sats >90%, s/p Trach 02/18 On PRVC RR 16, TV 500, IT:1.0, PEEP:8, FIO2: 50%. Daily SBT with high pressure support CT chest on 02/19/2018 showed bilateral consolidation extensive, cavitating lesions, moderate loculated left effusion Send fluid studies today, reconsult CT surgery if empyema Bilateral pigtail catheters and [address](4 total)-has no output now Moderate left-sided pleural effusion, new left pigtail chest tube placed by radiology 02/21/2018 Thoracic surgery is following- Dr. Thornton-not planning on any surgical intervention DuoNeb scheduled and when necessary. Renal: Acute kidney injury-resolved Dehydration-resolved -Maintain Alexandre -Monitor renal function, I/O's, electrolytes replacement per protocol. -See below re diuresis Cardiovascular: A. fib with RVR (converted to NSR 02/02) Significantly fluid overloaded -02/05 amiodarone infusion discontinued. -02/05 GRANT -no valvular vegetations. EF 55-60%, trace MVR, mild TVR, PAP 35 -IV Lasix 40 mg every 12 hours patient is significantly fluid overloaded. Scheduled potassium supplements -On Cardizem 60mg Q6, Lopressor 25mg Q12 GI Elevated LFT;s ( trending down) Hepatitis profile: Negative. US liver: non-diagnostic study -Tube feeds Jevity 1.5 resumed On Pepcid 20mg BID J tube placement in OR early next week ID: MRSA, Enterobacter pneumonia MRSA Bacteremia -Antibiotics per ID. On Zyvox, Teflaro and Zosyn. Persistent MRSA and sputum -Send fluid studies from new chest tube to rule out empyema -Monitor for signs of infections ( Fever, WBC) -ID- Dr. Singleton following. 02/10, 02/15, 02/17 Sputum: MRSA 02/10 BC: NGTD 01/30 MRSA bacteremia Endocrine: Hyperglycemia Medium scale sliding scale insulin dosing Glucose monitoring per ICU protocol DVT GI prophylaxis - Teds SCDs - Subcutaneous heparin - Pepcid Lines: peripheral IV's. Palliative care is following Code status: Alternative code CCT 35 Sarita Rodriguez MD Feb 22, 2018 08:22
[2018-02-22 08:31] LABS: BANDS 13 % (0-6); LYMPHOCYTES 1 % (9-44); METAMYELOCYTES 2 % (0-1); MONOCYTES 2 % (0-8); NEUTROPHIL # MANUAL DIFF 15.7 TH/MM3 (1.8-7.7); POLYS (SEG NEUTROPHILS) 79 % (16-70)
[2018-02-22 08:32] LABS: STOMATOCYTES 1+ (NORMAL)
[2018-02-22] MEDS: SODIUM CHLORIDE 0.9% FLUSH 10 ML FLUSH IV FLUSH SCH ×2 (09:00→20:18)
[2018-02-22] MEDS: DOCUSATE SODIUM 50 MG/SENNA 8.6 MG TAB PO SCH ×2 (09:49→20:18)
[2018-02-22] MEDS: ASPIRIN 81 MG CHEW TAB CHEW SCH (09:49)
[2018-02-22] MEDS: oxyCODONE HCL ORAL CONC 5 MG/0.25 ML SYRINGE PO SCH ×3 (09:50→20:20)
[2018-02-22] MEDS: FAMOTIDINE 20 MG TAB PO SCH ×2 (09:50→20:18)
[2018-02-22] MEDS: FUROSEMIDE 40 MG/4 ML VIAL IV PUSH SCH ×2 (09:50→17:49)
[2018-02-22] MEDS: POTASSIUM CHLORIDE 25 MEQ EFFERVESCENT TAB PO SCH (09:50)
[2018-02-22] MEDS: ALBUMIN 25% INJ 50 ML IV SCH ×2 (09:51→20:19)
[2018-02-22] MEDS: HEPARIN SODIUM - SQ 10,000 UNITS/ML VIAL SQ SCH ×3 (09:54→20:17)
[2018-02-22] MEDS: POTASSIUM CHLOR 20 MEQ PREMIX 100 ML IV PRN ×4 (10:19→18:45)
--- NOTE | 2018-02-22 11:12 | RADRPT ---
EXAM DATE/TIME: 02/22/2018 09:31 [place] COMPARISON: CHEST SINGLE AP, February 22, 2018, 3:55. INDICATIONS : Status post left pigtail chest tube removed. MEDICAL HISTORY : Non-respomsive. SURGICAL HISTORY : Non-responsive. ENCOUNTER: Subsequent ACUITY: 1 month PAIN SCORE: Non-responsive. LOCATION: Bilateral chest FINDINGS: A single view of the chest demonstrates bilateral pleural-parenchymal densities. Tracheostomy tube un changed. Nasogastric tube seen with tip likely in the upper esophagus. Lateral chest tubes. No pneumo thorax on the left. One of the small caliber chest tubes on the left have been removed. Osseous stru ctures are intact. CONCLUSION: 1. Bilateral pleural-parenchymal densities. 2. No pneumothorax. 3. Nasogastric tube with tip in the upper esophagus. Karri Muhammad MD on February 22, 2018 at 11:06 Board Certified Radiologist. This report was verified electronically.
--- NOTE | 2018-02-22 13:22 | HHI.HCPN ---
Reason for visit a. To assist with evaluation and management of symptoms including: dyspnea; encephalopathy, pain b. To assist medical decision maker(s) with: better understanding of current medical conditions; weighing benefits/burdens of medical treatment options; making medical treatment decisions. . Subjective/Interval History Palliative care follow-up for further clarifications of goals of care, medical update, emotional support. Patient seen and medical ICU s/p tracheostomy placement 02/18/17. Currently tolerating CPAP trials, 60 % FiO2 at time of my visit. Tolerated 4 hours yesterday. Chest x-ray today with unchanged bilateral pulmonary consolidations. Remains on propofol secondary to vent asynchrony. Fentanyl drip discontinued earlier this morning, patient currently on oxycodone 5 mg [id number]. Patient remains encephalopathic, eyes open but not tracking or following any commands during my visit. CT of brain yesterday negative for acute process. Patient afebrile, stable hemodynamically. Laboratory workup today revealing persistent leukocytosis with WBC 16.7, Hgb stable at 7.4, no signs of acute bleeding. BUN/creatinine 8/ 0.54. Albumin 1.3. Surgery Dr. Nj following for J-tube placement. Met with patient's sisters Rosy and daughter Zenobia via telephone. Palliative care director of social work eZnobia Cifuentes present for further support. Medical update provided. Daughter Alona to return to [place] from [place] tomorrow at nighttime. At the family's request, reviewed clinical course and current medical management and recommendation. Case discussed with Dr. Rodriguez prior to meeting with family. Clinical recommendations are to allow a few more days for clinical improvement with the understanding the patient remains critically ill with high risk of complications, further decline and . Daughters requesting to hold J-tube placement until next week, family verbalized concern of patient's neurological condition and long-term recovery potential. Family receptive to palliative care follow-ups, meeting this incoming Sunday 02/25 at 10:30 AM. . Family/friend interactions See interval note. . Advance Directives Living Will: Never completed Health Care Surrogate: Never completed Durable Power of Deicer Tester: Never completed Advance Directive Specifics Date completed: Patient has never completed an advanced directive. . Health Care Surrogate(s): There is no written designation of healthcare surrogate. . Documented care wishes: There is no written documentation of healthcare goals/preferences. . Significant change in goals: Family requesting to put J tube placement on hold at this time. . Objective Vital Signs Date Time Temp Pulse Resp B/P (MAP) Pulse Ox O2 Delivery O2 Flow Rate FiO2 02/22/18 11:47 94 60 02/22/18 10:00 80 02/22/18 09:12 88 21 178/81 (113) 94 02/22/18 09:08 89 23 173/78 (109) 94 02/22/18 09:04 88 23 175/81 (112) 94 02/22/18 09:00 89 23 181/82 (115) 93 02/22/18 08:56 92 34 177/86 (116) 90 02/22/18 08:52 85 21 174/81 (112) 95 02/22/18 08:48 85 17 170/79 (109) 100 02/22/18 08:44 88 20 172/73 (106) 98 02/22/18 08:40 90 24 177/83 (114) 90 02/22/18 08:36 91 24 181/86 (117) 90 02/22/18 08:32 91 23 183/86 (118) 90 02/22/18 08:28 90 24 184/83 (116) 90 02/22/18 08:24 91 24 182/86 (118) 90 02/22/18 08:20 91 24 178/79 (112) 90 02/22/18 08:16 90 24 180/83 (115) 90 02/22/18 08:12 90 24 178/82 (114) 89 02/22/18 08:08 87 23 180/85 (116) 97 02/22/18 08:07 94 50 02/22/18 08:04 93 27 186/88 (120) 88 02/22/18 08:01 94 22 182/86 (118) 100 02/22/18 08:00 55 02/22/18 08:00 98.4 93 26 170/77 (108) 97 02/22/18 06:00 82 02/22/18 04:00 110 02/22/18 04:00 97.9 106 36 150/74 (99) 98 02/22/18 04:00 55 02/22/18 03:57 95 50 02/22/18 02:00 100 02/22/18 00:06 95 50 02/22/18 00:00 83 02/22/18 00:00 55 02/22/18 00:00 97.8 80 20 107/55 (72) 94 02/21/18 22:00 78 02/21/18 20:00 91 02/21/18 20:00 55 02/21/18 20:00 97.4 91 24 133/63 (86) 94 02/21/18 19:55 94 50 02/21/18 19:00 76 16 94 02/21/18 19:00 76 02/21/18 18:00 98.2 75 16 94 02/21/18 18:00 75 02/21/18 17:00 86 02/21/18 17:00 86 17 98 02/21/18 16:40 87 21 155/74 (101) 98 02/21/18 16:40 87 02/21/18 16:00 50 02/21/18 16:00 83 16 96 02/21/18 16:00 83 02/21/18 15:46 100 100 02/21/18 15:46 97 50 02/21/18 15:00 93 02/21/18 14:35 93 02/21/18 14:30 90 02/21/18 14:25 91 02/21/18 14:00 91 02/21/18 13:30 94 02/21/18 13:30 94 22 170/81 (110) 97 Intake & Output 02/22/18 02/22/18 07:00 19:00 Intake Total 772 ml 168 ml Output Total 1042 ml Balance -270 ml 168 ml IV Total 300 ml 168 ml Tube Feeding 352 ml Other 120 ml Output Urine Total 1000 ml Chest Tube Drainage Total 42 ml # Bowel Movements 1 Physical Exam CONSTITUTIONAL/GENERAL: This is an obese patient in the medical intensive care unit bed. No apparent distress. TUBES/LINES/DRAINS: Tracheostomy; right subclavian central line; bilateral chest tubes x2; peripheral IV; sequential compressive devices. SKIN: Pale. No jaundice, rashes. Ecchymoses on upper extremities. No wounds seen anteriorly. Skin temperature appropriate. Not diaphoretic. EYES: Pupils equal and round. Unable to evaluate extraocular movements. No scleral icterus. No injection or drainage. ENT: Unable to evaluate hearing. Nose without bleeding or purulent drainage. Moist oral mucosa. NECK: Tracheostomy. CARDIOVASCULAR: Regular rate/rhythm without murmurs, gallops, or rubs. RESPIRATORY/CHEST: Bilateral chest tubes. Symmetric respirations on vent. Decreased air movement at bases. Scattered rhonchi bilaterally. Abdominal breathing on CPAP noted. GASTROINTESTINAL: Abdomen obese, large, soft. Active bowel sounds. GENITOURINARY: Without palpable bladder distension. Alexandre catheter in place. MUSCULOSKELETAL: Extremities without clubbing, cyanosis. Widespread edema vs SQ emphysema. No mottling. NEUROLOGICAL: Briefly opening eyes to tactile stimuli. Not tracking or following commands. PSYCHIATRIC: Appears calm. . Diagnostic Tests Laboratory Laboratory Tests Test 02/20/18 07:26 02/22/18 04:54 White Blood Count 19.0 TH/MM3 (4.0-11.0) 16.7 TH/MM3 (4.0-11.0) Red Blood Count 2.90 MIL/MM3 (4.00-5.30) 2.77 MIL/MM3 (4.00-5.30) Hemoglobin 8.0 GM/DL (11.6-15.3) 7.4 GM/DL (11.6-15.3) Hematocrit 24.5 % (35.0-46.0) 23.6 % (35.0-46.0) Mean Corpuscular Volume 84.7 FL (80.0-100.0) 84.9 FL (80.0-100.0) Mean Corpuscular Hemoglobin 27.7 PG (27.0-34.0) 26.8 PG (27.0-34.0) Mean Corpuscular Hemoglobin Concent 32.8 % (32.0-36.0) 31.6 % (32.0-36.0) Red Cell Distribution Width 16.2 % (11.6-17.2) 15.9 % (11.6-17.2) Platelet Count 432 TH/MM3 (150-450) 416 TH/MM3 (150-450) Mean Platelet Volume 7.5 FL (7.0-11.0) 7.3 FL (7.0-11.0) Neutrophils (%) (Auto) 79.5 % (16.0-70.0) 81.7 % (16.0-70.0) Lymphocytes (%) (Auto) 7.3 % (9.0-44.0) 7.5 % (9.0-44.0) Monocytes (%) (Auto) 4.8 % (0.0-8.0) 6.1 % (0.0-8.0) Eosinophils (%) (Auto) 7.8 % (0.0-4.0) 4.2 % (0.0-4.0) Basophils (%) (Auto) 0.6 % (0.0-2.0) 0.5 % (0.0-2.0) Neutrophils # (Auto) 15.1 TH/MM3 (1.8-7.7) 13.7 TH/MM3 (1.8-7.7) Lymphocytes # (Auto) 1.4 TH/MM3 (1.0-4.8) 1.3 TH/MM3 (1.0-4.8) Monocytes # (Auto) 0.9 TH/MM3 (0-0.9) 1.0 TH/MM3 (0-0.9) Eosinophils # (Auto) 1.5 TH/MM3 (0-0.4) 0.7 TH/MM3 (0-0.4) Basophils # (Auto) 0.1 TH/MM3 (0-0.2) 0.1 TH/MM3 (0-0.2) CBC Comment AUTO DIFF AUTO DIFF Differential Total Cells Counted 100 100 Neutrophils % (Manual) 76 % (16-70) 79 % (16-70) Band Neutrophils % 5 % (0-6) 13 % (0-6) Lymphocytes % 4 % (9-44) 1 % (9-44) Monocytes % 6 % (0-8) 2 % (0-8) Eosinophils % 6 % (0-4) 3 % (0-4) Neutrophils # (Manual) 16.0 TH/MM3 (1.8-7.7) 15.7 TH/MM3 (1.8-7.7) Myelocytes 3 % (0-0) Nucleated Red Blood Cells 1 /100 WBC (0-0) Differential Comment FINAL DIFF MANUAL FINAL DIFF MANUAL Platelet Estimate HIGH (NORMAL) NORMAL (NORMAL) Platelet Morphology Comment NORMAL (NORMAL) NORMAL (NORMAL) Blood Urea Nitrogen 11 MG/DL (7-18) 8 MG/DL (7-18) Creatinine 0.56 MG/DL (0.50-1.00) 0.54 MG/DL (0.50-1.00) Random Glucose 135 MG/DL (74-106) 190 MG/DL (74-106) Total Protein 7.8 GM/DL (6.4-8.2) 7.4 GM/DL (6.4-8.2) Albumin 1.2 GM/DL (3.4-5.0) 1.3 GM/DL (3.4-5.0) Calcium Level 8.6 MG/DL (8.5-10.1) 8.3 MG/DL (8.5-10.1) Magnesium Level 2.3 MG/DL (1.5-2.5) Alkaline Phosphatase 362 U/L (45-117) 288 U/L (45-117) Aspartate Amino Transf (AST/SGOT) 27 U/L (15-37) 14 U/L (15-37) Alanine Aminotransferase (ALT/SGPT) 34 U/L (10-53) 19 U/L (10-53) Total Bilirubin 1.0 MG/DL (0.2-1.0) 0.5 MG/DL (0.2-1.0) Sodium Level 138 MEQ/L (136-145) 138 MEQ/L (136-145) Potassium Level 3.4 MEQ/L (3.5-5.1) 3.1 MEQ/L (3.5-5.1) Chloride Level 99 MEQ/L (98-107) 97 MEQ/L (98-107) Carbon Dioxide Level 30.9 MEQ/L (21.0-32.0) 33.7 MEQ/L (21.0-32.0) Anion Gap 8 MEQ/L (5-15) 7 MEQ/L (5-15) Estimat Glomerular Filtration Rate 110 ML/MIN (>89) 114 ML/MIN (>89) Metamyelocytes 2 % (0-1) Stomatocytes 1+ (NORMAL) Result Diagram: 02/22/18 0454 02/22/18 0454 Microbiology Microbiology Date/Time Source Procedure Growth Status 02/19/18 14:03 Blood Peripheral Aerobic Blood Culture - Preliminary NO GROWTH IN 3 DAYS Resulted 02/19/18 14:03 Blood Peripheral Anaerobic Blood Culture - Preliminary NO GROWTH IN 3 DAYS Resulted 02/19/18 14:03 Blood Peripheral Aerobic Blood Culture - Preliminary NO GROWTH IN 3 DAYS Resulted 02/19/18 14:03 Blood Peripheral Anaerobic Blood Culture - Preliminary NO GROWTH IN 3 DAYS Resulted Imaging Last 48 hours Impressions Chest X-Ray 02/22/18 0600 Signed Impressions: Service Date/Time: Thursday, February 22, 2018 03:55 - CONCLUSION: 2 thoracostomy tubes bilaterally. Unchanged bilateral pulmonary consolidations. Ilya Cifuentes Jr., MD Chest X-Ray 02/22/18 0000 Signed Impressions: Service Date/Time: Thursday, February 22, 2018 09:31 - CONCLUSION: 1. Bilateral pleural-parenchymal densities. 2. No pneumothorax. 3. Nasogastric tube with tip in the upper esophagus. Karri Muhammad MD Head CT 02/21/18 0000 Signed Impressions: Service Date/Time: February 14:24 - CONCLUSION: 1. Bilateral mastoiditis. 2. Otherwise negative. No acute intracranial process to explain current clinical symptoms Gino Hernandez MD Chest X-Ray 02/21/18 0000 Signed Impressions: Service Date/Time: February 16:01 - CONCLUSION: 1. Multiple, bilateral thoracostomy tubes as above. No pneumothorax. 2. Bilateral airspace disease with possible left-sided effusion. No significant interval change. Gino Hernandez MD Chest Tube Insertion 02/21/18 0000 Signed Impressions: Service Date/Time: February 14:36 - CONCLUSION: Uncomplicated chest tube placement as above. Karri Muhammad MD Procedures * 01/31/18 -Intubation/mechanical ventilation right subclavian * Central line placement * Bilateral chest tube placement * Transesophageal echo * 02/18/18 -tracheostomy . Assessment and Plan Disease Oriented Problem List: (1) PNA (pneumonia) Comment: MRSA + Enterobacter (2) Respiratory failure (3) ARDS (adult respiratory distress syndrome) (4) Sepsis Comment: MRSA (5) Anemia (6) Hypoalbuminemia (7) Bilateral pneumothoraces Comment: Recurrent and multiple pneumothoraces . (8) ARF (acute renal failure) Comment: REsolving (9) Encephalopathy Symptom Scale: (1) Pain 0-10 Scale: Unable to quantify Comment: No known prehospitalization pain syndromes. Current sources of discomfort might include orotracheal and orogastric intubations; vascular access lines; restraints; Alexandre catheter; chest tubes; prolonged bedbound status. (2) Dyspnea 0-10 Scale: Unable to quantify Comment: Patient with underlying pneumonia and bilateral pneumothoraces. Dyspnea currently managed with ventilatory support. (3) Encephalopathy 0-10 Scale: Unable to quantify Pertinent Non-Medical Issues Psychosocial: Has a male partner . She normally lives with him in a manufactured home. He is a smoker. Her 2 daughters are now down from [place] to help. Spiritual: Patient is confucianism presybeterian. Audio Operator visits would be appreciated. Legal: There are no advance directives. Without written designation of a healthcare surrogate, proxy decision making would fall to both adult daughters. Ethical issues impacting care: Patient is currently incapacitated to make her own medical decisions. It is unclear if/when she will become capacitated to do so. . Important Contacts Alona Caballero (daughter and co-health care proxy) [phone] Zenobia Clay (daughter and co-health care proxy) [phone] Brett Mackay (boyfriend -- NO DECISION MAKING RIGHTS unless there is written documentation saying otherwise) [phone] . Prognosis On the one hand, other than her morbid obesity, this patient has very few health problems and has managed to stay out of the hospital. Ordinarily, we would expect her to respond well to treatment and improve. This patient declined incredibly quickly and has very severe respiratory disease in spite of the fact that she has no known underlying chronic respiratory illness.She has multiple pneumothoraces. She has developed Enterobacter pneumonia on top of her MRSA pneumonia. Patient ventilator dependent at this time status post tracheostomy. Appears not to be responding to medical treatment. Overall prognosis is guarded, remains at high risk of further decompensation, decline and . . Code Status: Alternative Code (Per discussion with two daughters on 02/11/18) Plan == Code Status: ALT CODE (no defibrillation; no chest compression) == Medical Decision Making: Patient is currently incapacitated to make her own healthcare decisions. It is unclear if/when she will recover capacity to do so. Since there is no written designation of healthcare surrogacy that we are aware of, proxy decision making would fall to her 2 adult children -- Alona Caballero and Zenobia Clay. They both have accepted this role. == Goals of medical treatment: Goals of treatment remain aggressive short of no chest compressions or defibrillation. Patient's daughters acting as healthcare proxy decision makers have elected to continue aggressive management ; however, requesting to put on hold J-tube placement until next week. Reviewed likely illness trajectory with anticipated prolonged hospitalization and rehab if patient survives this hospitalization. Reviewed that patient remains at a very high risk of further complications, continued decline and . Family verbalized understanding. Follow-up family meeting for this incoming Sunday 02/25 at 10:30 AM. == Symptoms: * Dyspnea: Patient with underlying pneumonia and bilateral pneumothoraces. Dyspnea currently managed with ventilatory support. Bilateral chest tubes in place. Patient status post tracheostomy on 02/18, tolerating CPAP trials for a couple of hours since yesterday. * Pain: No known pre-hospitalization pain syndromes. Current sources of discomfort might include orotracheal and orogastric intubations; vascular access lines; restraints; Alexandre catheter; chest tubes; prolonged bedbound status. Fentanyl drip has been discontinued, currently on oxycodone 5 mg around -the-clock. Patient appears comfortable. No further recommendations at this time. * Encephalopathy: Patient is currently sedated but underlying encephalopathy probably secondary to her sepsis/critical illness. If no neurological improvement over the weekend, palliative care recommends neurology consultation. == Case discussed with Dr. Rodriguez and bedside RN Lauren. == Palliative care will continue to follow up as needed to assist with symptom management and to further clarify goals of medical treatment as the clinical course evolves. Family receptive to this. . Time Spent Total Floor Time (mins): 37 (Total time to include review of medical records, physical exam, goals of care conversation with patient's daughter and 2 sisters , case discussion with Dr. Rodriguez and bedside RN.) Attestation To help prompt me to consider important information that might be impacting today's encounter and assessment, information from prior notes written by myself or my colleagues may have been "brought forward" into today's note. My signature on this note, however, is an attestation that I personally performed the exam, history, and/or decision-making noted today, and, unless otherwise indicated, the interactions with patient, family, and staff as well as the review of records all occurred today. I also attest that the listed assessment and stated plan reflect my best clinical judgment today based on the combination of historical information, prior notes, and today's exam/ interactions. When time spent is documented, it refers only to time spent today by the signer, or if indicated, combined time spent today by collaborating physician/nurse practitioner. Myra Delatorre Feb 22, 2018 13:22
[2018-02-22] MEDS: hydrALAZINE HCL 20 MG/ML VIAL IV PUSH PRN (13:48)
[2018-02-22] MEDS: fentaNYL CITRATE 250 MCG/5 ML AMP IV PUSH PRN (14:15)
[2018-02-22 16:10] LABS: TOTAL PROTEIN,PLEURAL FLUID 3.7 GM/DL
[2018-02-22 16:45] LABS: PLEURAL FLUID RBC 535 /MM3 (0-0); PLEURAL FLUID WBC 34 /MM3 (0-10)
[2018-02-22 16:46] LABS: PLEURAL FLUID LYMPHS 28 %; PLEURAL FLUID POLYS (SEGS) 72 %
--- NOTE | 2018-02-22 18:04 | HHI.PR ---
Subjective Remarks 62 YO Female with VDRF,PTx, 4 Chest tubes 2 chest tubes have airleak Sedated with Fentanyl CT Chest worsening bilat infilt Did't tolerate CPAP On ACV Objective Vital Signs Vital Signs Date Time Temp Pulse Resp B/P (MAP) Pulse Ox O2 Delivery O2 Flow Rate FiO2 4/20/18 17:12 99 30 132/62 (85) 96 4/20/18 17:08 95 4/20/18 17:08 95 26 117/57 (77) 96 4/20/18 17:04 95 4/20/18 17:04 95 27 118/58 (78) 96 4/20/18 17:00 94 27 122/60 (80) 96 4/20/18 17:00 94 4/20/18 16:56 93 20 115/58 (77) 99 4/20/18 16:56 93 4/20/18 16:52 97 27 136/64 (88) 95 4/20/18 16:52 97 4/20/18 16:48 98 4/20/18 16:48 98 28 139/65 (89) 96 4/20/18 16:44 92 4/20/18 16:44 92 25 109/53 (71) 96 4/20/18 16:40 91 4/20/18 16:40 91 25 110/56 (74) 95 4/20/18 16:36 93 26 117/59 (78) 95 4/20/18 16:36 93 4/20/18 16:32 92 25 114/56 (75) 95 4/20/18 16:32 92 4/20/18 16:28 92 4/20/18 16:28 92 25 116/57 (76) 95 4/20/18 16:24 96 27 122/60 (80) 94 4/20/18 16:24 96 4/20/18 16:20 94 27 119/57 (77) 95 4/20/18 16:20 94 4/20/18 16:16 97 4/20/18 16:16 97 27 128/60 (82) 95 4/20/18 16:12 94 4/20/18 16:12 94 20 119/58 (78) 100 4/20/18 16:08 94 26 118/55 (76) 94 4/20/18 16:08 94 4/20/18 16:04 93 4/20/18 16:04 93 27 123/60 (81) 94 4/20/18 16:00 95 4/20/18 16:00 98.9 95 26 127/60 (82) 94 4/20/18 16:00 55 4/20/18 15:31 93 55 4/20/18 13:16 80 4/20/18 13:16 80 29 177/84 (115) 92 4/20/18 13:12 82 28 175/72 (106) 92 4/20/18 13:12 82 4/20/18 13:09 81 27 179/79 (112) 93 4/20/18 13:09 81 4/20/18 13:04 90 4/20/18 13:04 90 26 164/69 (100) 95 420/18 13:00 92 4/20/18 13:00 92 27 181/86 (117) 95 4/20/18 12:56 94 31 188/85 (119) 95 420/18 12:56 94 420/18 12:52 93 4/20/18 12:52 93 27 176/81 (112) 95 4/20/18 12:48 94 28 180/74 (109) 94 4/20/18 12:48 94 4/20/18 12:44 94 27 185/85 (118) 95 4/20/18 12:44 94 4/20/18 12:40 94 4/20/18 12:40 94 27 188/86 (120) 94 4/20/18 12:36 96 4/20/18 12:36 96 27 195/88 (123) 94 4/20/18 12:32 97 4/20/18 12:32 97 27 181/88 (119) 94 4/20/18 12:28 96 4/20/18 12:28 96 25 182/83 (116) 95 4/20/18 12:24 96 26 190/90 (123) 94 4/20/18 12:24 96 4/20/18 12:20 96 4/20/18 12:20 96 27 186/88 (120) 95 4/20/18 12:16 94 26 190/91 (124) 95 4/20/18 12:16 94 4/20/18 12:12 93 27 192/89 (123) 95 4/2018 12:12 93 02/22/18 12:08 93 26 187/81 (116) 95 02/22/18 12:08 93 02/22/18 12:04 94 02/22/18 12:04 94 26 189/93 (125) 95 02/22/18 12:00 93 02/22/18 12:00 60 02/22/18 12:00 98.9 93 26 187/83 (117) 95 02/22/18 11:47 94 60 02/22/18 10:00 80 02/22/18 09:12 88 21 178/81 (113) 94 02/22/18 09:08 89 23 173/78 (109) 94 02/22/18 09:04 88 23 175/81 (112) 94 02/22/18 09:00 89 23 181/82 (115) 93 02/22/18 08:56 92 34 177/86 (116) 90 02/22/18 08:52 85 21 174/81 (112) 95 02/22/18 08:48 85 17 170/79 (109) 100 02/22/18 08:44 88 20 172/73 (106) 98 02/22/18 08:40 90 24 177/83 (114) 90 02/22/18 08:36 91 24 181/86 (117) 90 02/22/18 08:32 91 23 183/86 (118) 90 02/22/18 08:28 90 24 184/83 (116) 90 02/22/18 08:24 91 24 182/86 (118) 90 02/22/18 08:20 91 24 178/79 (112) 90 02/22/18 08:16 90 24 180/83 (115) 90 02/22/18 08:12 90 24 178/82 (114) 89 02/22/18 08:08 87 23 180/85 (116) 97 02/22/18 08:07 94 50 02/22/18 08:04 93 27 186/88 (120) 88 02/22/18 08:01 94 22 182/86 (118) 100 02/22/18 08:00 55 02/22/18 08:00 98.4 93 26 170/77 (108) 97 02/22/18 06:00 82 02/22/18 04:00 110 02/22/18 04:00 97.9 106 36 150/74 (99) 98 02/22/18 04:00 55 02/22/18 03:57 95 50 02/22/18 02:00 100 02/22/18 00:06 95 50 02/22/18 00:00 83 02/22/18 00:00 55 02/22/18 00:00 97.8 80 20 107/55 (72) 94 02/21/18 22:00 78 02/21/18 20:00 91 02/21/18 20:00 55 02/21/18 20:00 97.4 91 24 133/63 (86) 94 02/21/18 19:55 94 50 02/21/18 19:00 76 16 94 02/21/18 19:00 76 I/O 02/21/18 02/21/18 02/21/18 02/22/18 02/22/18 02/22/18 07:00 15:00 23:00 07:00 15:00 23:00 Intake Total 650 ml 150 ml 1070 ml 472 ml 168 ml Output Total 820 ml 2120 ml 1042 ml Balance -170 ml 150 ml -1050 ml -570 ml 168 ml IV Total 650 ml 150 ml 750 ml 168 ml Tube Feeding 0 ml 352 ml Other 320 ml 120 ml Output Urine Total 800 ml 2000 ml 1000 ml Chest Tube Drainage Total 20 ml 120 ml 42 ml # Bowel Movements 1 0 1 Result Diagram: 02/22/18 0454 02/22/18 0454 Objective Remarks GENERAL: WBWN Female, on Vent, sedated SKIN: Warm and dry. HEAD: Normocephalic. EYES: No scleral icterus. No injection or drainage. NECK: Supple, trachea midline. No JVD or lymphadenopathy. CARDIOVASCULAR: Regular rate and rhythm without murmurs, gallops, or rubs. RESPIRATORY: Breath sounds equal bilaterally. No accessory muscle use. [address] SQ Emphysema. GASTROINTESTINAL: Abdomen soft, non-tender, nondistended. MUSCULOSKELETAL: No cyanosis, or edema. BACK: Nontender without obvious deformity. No CVA tenderness. A/P Assessment and Plan VDRF Post Influenza Pn MRSA PTX PLAN: Cont Vent support Cont Abx TF Chest tubes to suction. Sedation with Fentanyl., and Diprivan Cont Vent support CPAP in Dru Smith MD Feb 22, 2018 18:04
[2018-02-23] VITALS (25 sets, daily range): BP systolic 110–152; BP diastolic 57–67; PULSE 73–109; RESP 16–30; TEMP 98.1–99.5; O2SAT 92–100
[2018-02-23 01:37] LABS: PLEURAL FLUID LYMPHS 4 %; PLEURAL FLUID MONOS 4 %; PLEURAL FLUID POLYS (SEGS) 92 %; PLEURAL FLUID RBC 115 /MM3 (0-0); PLEURAL FLUID WBC 101 /MM3 (0-10)
[2018-02-23] MEDS: CEFTAROLINE INJ 600 MG in SODIUM CHLORIDE 0.9% INJ 100 ML IV SCH ×2 (02:21→16:27)
[2018-02-23] MEDS: oxyCODONE HCL ORAL CONC 5 MG/0.25 ML SYRINGE PO SCH ×4 (02:21→20:13)
[2018-02-23] MEDS: RESP: ALBUTEROL 2.5 MG/IPRATROPIUM 0.5 MG NEB (SCH) NEB ×4 (03:40→20:01)
[2018-02-23] MEDS: PROPOFOL 1000 MG/100 ML IV PRN ×4 (04:00→17:05)
[2018-02-23] MEDS: CHLORHEXIDINE GLUCONATE 2 % 1 PACK (2 CLOTHS) TOP SCH (04:00)
[2018-02-23] MEDS: DILTIAZEM HCL 30 MG TAB PO SCH ×4 (04:48→23:25)
[2018-02-23] MEDS: INSULIN ASPART SUPPLEMENTAL SCALE SQ SCH ×4 (04:48→23:25)
[2018-02-23] MEDS: HEPARIN SODIUM - SQ 10,000 UNITS/ML VIAL SQ SCH ×3 (04:48→21:11)
[2018-02-23] MEDS: fentaNYL CITRATE 250 MCG/5 ML AMP IV PUSH PRN (07:44)
[2018-02-23] MEDS: fentaNYL DRIP 250 ML IV PRN ×2 (08:53→20:19)
[2018-02-23] MEDS: ALBUMIN 25% INJ 50 ML IV SCH ×2 (09:12→21:11)
[2018-02-23] MEDS: SODIUM CHLORIDE 0.9% FLUSH 10 ML FLUSH IV FLUSH SCH ×2 (09:17→20:14)
[2018-02-23] MEDS: ASPIRIN 81 MG CHEW TAB CHEW SCH (09:17)
[2018-02-23] MEDS: FUROSEMIDE 40 MG/4 ML VIAL IV PUSH SCH ×3 (09:17→20:14)
[2018-02-23] MEDS: DOCUSATE SODIUM 50 MG/SENNA 8.6 MG TAB PO SCH ×2 (09:17→20:13)
[2018-02-23] MEDS: FAMOTIDINE 20 MG TAB PO SCH ×2 (09:17→20:13)
[2018-02-23] MEDS: POTASSIUM CHLORIDE 25 MEQ EFFERVESCENT TAB PO SCH (09:18)
[2018-02-23] MEDS: CHLORHEXIDINE 0.12% (ORAL KIT) 15 ML CUP MT SCH ×2 (09:19→20:16)
--- NOTE | 2018-02-23 09:21 | RADRPT ---
EXAM DATE/TIME: 02/23/2018 08:53 [facility] COMPARISON: CHEST SINGLE AP, February 22, 2018, 9:31. INDICATIONS : Respiratory disease. MEDICAL HISTORY : Sepsis. SURGICAL HISTORY : Gastric bypass. Tonsillectomy. chest tubes x 5 ENCOUNTER: Subsequent ACUITY: 1 month PAIN SCORE: Non-responsive. LOCATION: Bilateral chest FINDINGS: A single AP erect portable view of the chest was obtained and again demonstrates the tracheostomy tub e in place. A nasogastric tube is seen coursing through the esophagus and into the proximal stomach. There are bilateral small bore chest chest tubes and bilateral large bore chest tubes. There is a sma ll right apical pneumothorax now identified which was not present on the prior study. This measures u p to approximately 7 mm. There is patchy airspace disease noted in both lungs right greater than left with stable areas of more consolidative opacity. There is a loculated left effusion extending along the left lateral pleura. The heart size remains within normal limits. CONCLUSION: 1. Mall right apical pneumothorax now visualized and not seen on the prior study. This measures up to 7 mm. 2. Patchy airspace disease remains in both lungs right greater than left. 3. Loculated left pleural effusion again noted. Kevin Tello MD on February 23, 2018 at 9:14 Board Certified Radiologist. This report was verified electronically.
--- NOTE | 2018-02-23 09:31 | HHI.PR ---
Subjective Remarks Patient is sedated with Diprivan and Fentanyl infusions. On PRVC with PEEP:12, FIO2:50%. Afebrile. Objective Vital Signs Vital Signs Date Time Temp Pulse Resp B/P (MAP) Pulse Ox O2 Delivery O2 Flow Rate FiO2 02/23/18 08:10 98 50 02/23/18 06:00 86 02/23/18 04:00 92 02/23/18 04:00 55 02/23/18 04:00 98.1 91 22 110/57 (74) 95 02/23/18 03:40 98 55 02/23/18 02:00 96 02/23/18 00:00 55 02/23/18 00:00 109 02/23/18 00:00 108 30 149/65 (93) 97 02/22/18 23:29 99 55 02/22/18 22:00 103 02/22/18 20:04 94 55 02/22/18 20:00 97 02/22/18 20:00 98.5 105 34 143/66 (91) 93 18 20:00 55 18 18:08 98 18 18:04 100 18 18:00 97 18 17:12 99 30 132/62 (85) 96 20/18 17:08 95 02/22/18 17:08 95 26 117/57 (77) 96 20/18 17:04 95 02/22/18 17:04 95 27 118/58 (78) 96 02/22/18 17:00 94 27 122/60 (80) 96 18 17:00 94 18 16:56 93 20 115/58 (77) 99 20/18 16:56 93 02/22/18 16:52 97 27 136/64 (88) 95 20/18 16:52 97 20/18 16:48 98 20/18 16:48 98 28 139/65 (89) 96 02/22/18 16:44 92 /20/18 16:44 92 25 109/53 (71) 96 02/22/18 16:40 91 2018 16:40 91 25 110/56 (74) 95 18 16:36 93 26 117/59 (78) 95 4/20/18 16:36 93 4/20/18 16:32 92 25 114/56 (75) 95 4/20/18 16:32 92 4/20/18 16:28 92 4/20/18 16:28 92 25 116/57 (76) 95 4/20/18 16:24 96 27 122/60 (80) 94 4/20/18 16:24 96 4/20/18 16:20 94 27 119/57 (77) 95 4/20/18 16:20 94 4/20/18 16:16 97 4/20/18 16:16 97 27 128/60 (82) 95 4/20/18 16:12 94 4/20/18 16:12 94 20 119/58 (78) 100 4/20/18 16:08 94 26 118/55 (76) 94 4/20/18 16:08 94 4/20/18 16:04 93 4/20/18 16:04 93 27 123/60 (81) 94 4/20/18 16:00 95 4/20/18 16:00 98.9 95 26 127/60 (82) 94 4/20/18 16:00 55 4/20/18 15:31 93 55 4/20/18 13:16 80 4/20/18 13:16 80 29 177/84 (115) 92 4/20/18 13:12 82 28 175/72 (106) 92 4/20/18 13:12 82 4/20/18 13:09 81 27 179/79 (112) 93 4/20/18 13:09 81 4/20/18 13:04 90 4/20/18 13:04 90 26 164/69 (100) 95 4/20/18 13:00 92 4/20/18 13:00 92 27 181/86 (117) 95 4/20/18 12:56 94 31 188/85 (119) 95 4/20/18 12:56 94 4/20/18 12:52 93 4/20/18 12:52 93 27 176/81 (112) 95 4/20/18 12:48 94 28 180/74 (109) 94 4/20/18 12:48 94 4/20/18 12:44 94 27 185/85 (118) 95 4/20/18 12:44 94 4/20/18 12:40 94 02/22/18 12:40 94 27 188/86 (120) 94 02/22/18 12:36 96 02/22/18 12:36 96 27 195/88 (123) 94 02/22/18 12:32 97 02/22/18 12:32 97 27 181/88 (119) 94 02/22/18 12:28 96 02/22/18 12:28 96 25 182/83 (116) 95 02/22/18 12:24 96 26 190/90 (123) 94 02/22/18 12:24 96 02/22/18 12:20 96 02/22/18 12:20 96 27 186/88 (120) 95 02/22/18 12:16 94 26 190/91 (124) 95 02/22/18 12:16 94 02/22/18 12:12 93 27 192/89 (123) 95 02/22/18 12:12 93 02/22/18 12:08 93 26 187/81 (116) 95 02/22/18 12:08 93 02/22/18 12:04 94 02/22/18 12:04 94 26 189/93 (125) 95 02/22/18 12:00 93 02/22/18 12:00 60 02/22/18 12:00 98.9 93 26 187/83 (117) 95 02/22/18 11:47 94 60 02/22/18 10:00 80 I/O 02/22/18 02/22/18 02/22/18 02/23/18 02/23/18 02/23/18 07:00 15:00 23:00 07:00 15:00 23:00 Intake Total 472 ml 168 ml 1098 ml 1376 ml Output Total 1042 ml 1025 ml 1600 ml Balance -570 ml 168 ml 73 ml -224 ml IV Total 168 ml 150 ml 600 ml Tube Feeding 352 ml 588 ml 656 ml Other 120 ml 360 ml 120 ml Output Urine Total 1000 ml 950 ml 1600 ml Chest Tube Drainage Total 42 ml 75 ml 0 ml # Bowel Movements 1 1 1 Result Diagram: 02/22/18 0454 02/23/18 0154 Other Results Last Impressions Chest X-Ray 02/22/18 0600 Signed Impressions: Service Date/Time: Thursday, February 22, 2018 03:55 - CONCLUSION: 2 thoracostomy tubes bilaterally. Unchanged bilateral pulmonary consolidations. Ilya Cifuentes Jr., MD Head CT 02/21/18 0000 Signed Impressions: Service Date/Time: February 14:24 - CONCLUSION: 1. Bilateral mastoiditis. 2. Otherwise negative. No acute intracranial process to explain current clinical symptoms Gino Hernandez MD Chest Tube Insertion 02/21/18 0000 Signed Impressions: Service Date/Time: February 14:36 - CONCLUSION: Uncomplicated chest tube placement as above. Karri Muhammad MD Chest CT 02/19/18 0000 Signed Impressions: Service Date/Time: Monday, February 19, 2018 13:36 - CONCLUSION: 1. Multilobar consolidation with multiple cavities, not significantly changed. Differential possibilities are again noted to include septic emboli, TB and fungal etiologies including necrotizing process and autoimmune process such as Britton's. 2. Small right anterobasilar pneumothorax. Right-sided chest tube likely nonfunctional. 3. 2 left-sided chest tubes with loculated left pleural effusion, slightly more prominent on current study. Karri Muhammad MD Abdomen X-Ray 02/18/18 0000 Signed Impressions: Service Date/Time: Sunday, February 18, 2018 15:47 - CONCLUSION: 1. Suction type NGT in the region of the GE junction. Romeo Espinoza MD Liver Ultrasound 02/11/18 0000 Signed Impressions: Service Date/Time: Sunday, February 11, 2018 09:34 - CONCLUSION: Nondiagnostic examination CT scan is recommended for further evaluation if clinically indicated. To Vaughn MD Neck CT 02/10/18 0000 Signed Impressions: Service Date/Time: Saturday, February 10, 2018 14:57 - CONCLUSION: 1. Extensive subcutaneous edema in the neck which has dissected cephalad from the chest and is worse on the left side. 2. Support apparatus as above. See chest CT report for evaluation of lungs. 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 No adenopathy. Everett Ng MD Objective Remarks GENERAL: WBWN Female, on Vent, sedated SKIN: Warm and dry. HEAD: Normocephalic. EYES: No scleral icterus. No injection or drainage. NECK: Supple, trachea midline. No JVD or lymphadenopathy. CARDIOVASCULAR: Regular rate and rhythm without murmurs, gallops, or rubs. RESPIRATORY: Breath sounds equal bilaterally. No accessory muscle use. [address] SQ Emphysema. GASTROINTESTINAL: Abdomen soft, non-tender, nondistended. MUSCULOSKELETAL: No cyanosis, or edema. Neuro: Sedated, A/P Assessment and Plan Acute hypoxemic respiratory failure s/p trach MRSA pneumonia, with multiple cavitations and consolidation s/p Moderate sized left pleural effusion, ? empyema COPD Bilateral pneumothorax, status post large bore chest tube Post Influenza pneumonia Leukocytosis Anemia PLAN: Cont Vent support keep sats >92% On PRVC RR 16, TV 600, PEEP:12, FIO2: 50%. Decrease PEEP:10 and FIO2: 40% Bronchodilators Pulm toilet, trach care Monitor CT output. Follow up on CXR On Fentanyl and Diprivan dip for sedation. Daily sedation vacation Abx per ID ( On Zyvox) montiro for signs of infections ( Fever, WBC) Continue with tube feeds-On Jevity 1.5@60ml/hr GI/DVT prophylaxis Palliative care is following Lenard Qureshi MD Feb 23, 2018 09:31
--- NOTE | 2018-02-23 11:43 | HHI.CCPN ---
Subjective Remarks/Hospital Course 01/30: 62-year-old female presents for evaluation of increasing shortness of breath and chest pain. She reports 1 week of coughing 3 days of pain in her left chest which radiates to her back, which prompted the visit to the emergency room yesterday. She rates her pain a 6 out of 10. She reports fevers , chills, fatigue, mild nausea. She denies any abdominal pain, vomiting. Patient denies any significant past medical history. Symptom onset was gradual , symptom severity is severe, there are no alleviating factors. Patient states that she has been taking the azithromycin antibiotics that were prescribed to her. She denies any current or historical tobacco use. 01/31: Intubated at 1 AM this morning and placed on mechanical ventilation due to worsening respiratory distress. Currently sedated, orally intubated on mechanical ventilation. 02/01: Remains sedated, orally intubated on mechanical ventilation. Went into A. fib with RVR this morning. Loaded with amiodarone, started on amiodarone drip and given digoxin 0.5 mg IV 02/02: Remains sedated, orally intubated on mechanical ventilation. Right sided pigtail catheter in place with 1+ air leak. Converted to sinus rhythm overnight. Remains on amiodarone gtt. 02/03: Remains sedated, orally intubated on mechanical ventilation. 1+ air leak and right sided pigtail catheter. Tolerating tube feeds. Remains on amiodarone gtt. 02/04: Noted to have pneumothorax on the left side this morning on routine chest x -ray which appeared to be under tension. Right sided pigtail catheter placed by Dr. Peña with reexpansion of lung. Patient remains sedated, orally intubated on mechanical ventilation. 1+ airleak and bilateral chest tubes noted. 02/05: Afebrile. Persistent leukocytosis, bilateral chest tubes continue on wall suction. Chest x-ray pending this a.m.. Patient scheduled for GRANT today, discussed with Dr. Vázquez. Patient continues on amiodarone infusion with sinus rhythm. Postprocedure GRANT,this afternoon, the patient became extremely agitated, noted significant increase in subcu emphysema, peak pressures 50's, O2 saturation significantly decreased to 78-80 %. Stat chest x-ray performed patient was noted to have a significant right pneumothorax. 20 Thai right chest tube placement emergently, with increase in O2 saturation decrease in peak inspiratory pressures. 02/06: Afebrile. Patient with persistent bilateral pneumothoraces, with diffuse bilateral infiltrates and massive SQ emphysema. O2 requirement significantly increased during the night, PIP 38-44. 28 F chest tubes were placed bilaterally with resolution of left pneumothorax and minimization of right pneumothorax, and improved oxygenation. 02/07: TMax 100.1 Chest tubes remain on suction. Resolution of pneumothoraces, continued extensive SQ emphysema. Persistent leukocytosis noted. FiO2 weaned to 50%. 02/08: Late entry note patient seen at 1250. Attempts at CPAP trials, unsuccessful this morning. FiO2 decreased 50%, with adequate oxygenation. 02/09: Afebrile. The patient was transitioned to CPAP trials with pressure support of 22/8. FiO2 currently at 55% continuing to wean. Patient noted with positive fluid balance Lasix 40 mg IV now, patient is initiated on Lasix 40 daily. Patient with positive air leak in chest tubes #1-28 Thai right and #3 pigtail left, both at 2+. Sedation vacation initiated early this a.m. patient neurologically intact. Patient continues on moderate sedation for CPAP to maintain ventilator synchrony plan for transitioning to Precedex. Noted improvement with subcu emphysema. Extensive discussion with patient's daughter regarding a possibility of a tracheostomy if unsuccessful with ventilator weaning process. 02/10: Subcutaneous emphysema has worsened overnight per RN who took care of the patient yesterday, now extending to the upper chest left neck and to the left side of the face including left eyelids. No increase in FiO2 requirement currently on 55%. I have reduced inspiratory pressure from 32 to 28. FiO2 reduced to 50%. Will check a repeat chest x-ray in afternoon if needed. Will request CT surgical evaluation for persistent subcutaneous emphysema despite 2 chest tubes bilaterally 02/11 Patient is sedated with Diprivan, Versed and Fentanyl drips. T: 101.[address] guided chest tube placement by IR today 02/12 No events overnight. Remains sedated and intubated. Afebrile. On PC/AC with PEEP: 8 and FIO2 40%. 02/13 Patient remains intubated and heavily sedated. Afebrile. Repeat CT chest yesterday showed loculated anterior left pneumothorax has resolved. A small left pleural effusion remains present and the 2 left chest tubes appear to be in good position to drain the fluid. Significant improvement in the bilateral chest wall subcutaneous emphysema. 02/14 Patient remains sedated and intubated. Afebrile. On Bumex drip 0.5mg/hr. 02/15 Patient remains intubated and sedated, On Bumex drip 0.5mg/hr with good urine output. T:100.1 02/16 Patient remains sedated and intubated. Off Bumex drip. Afebrile. 02/17 Remains intubated and sedated with Diprivan and Fentanyl drips. Afebrile. For trach tomorrow. 02/18: Trach anticipated for today. Remains sedated. Family at the bedside updated. Coags are normal 02/19: Tracheostomy performed yesterday, patient now with increasing oxygen requirement more critical. Currently on 70% FiO2. A stat CT of the chest ordered by ID shows persistent consolidation multilobar with multiple cavitations. Family updated at the bedside. At this time do not appear to be adequately responding to treatment 02/20: Remains critical with high FiO2 and PEEP requirements. CT chest yesterday showed persistent consolidation and cavitation and a moderate-sized left pleural effusion. Sputum culture again growing MRSA. White count increased to 19,000 today. Left pleural effusion need to be drained, consult IR for CT guided chest tube, due to worsening sepsis 02/21: Patient remains intubated sedated and critically ill. PEEP requirement still remains high and FiO2 is at 50%. Radiology to place new large bore pigtail chest tube for left pleural effusion which is loculated. Will remove the small pigtail chest tube after new one is placed. On sedation hold patient appears to be weak on left side. Check CT of the head also. Grossly fluid overloaded. We will start scheduled dialysis with IV Lasix. Teflaro added to Zyvox yesterday 02/22: Continues to be requiring high oxygen currently at 50% PEEP at 8. New large bore pigtail chest tube placed on the left side yesterday with 200 mL output since placement. Bilateral previous pigtails to waterseal plan to remove the left original pigtail chest tube today. Patient continues to be encephalopathy 02/23: Remains on full ventilator support diuresing well with Lasix but still significantly fluid overloaded. Increase Lasix to 40 every 6 hours, add Diamox for 3 days. Continue chest tubes to suction. Fio2 reduced to 40% PEEP down to 10. MRI and EEG ordered due to persistent encephalopathy Objective Vital Signs Date Time Temp Pulse Resp B/P (MAP) Pulse Ox O2 Delivery O2 Flow Rate FiO2 02/23/18 11:00 40 02/23/18 10:23 100 02/23/18 10:00 91 02/23/18 08:00 99.3 24 122/59 (80) Intake and Output 02/23/18 02/23/18 02/24/18 08:00 16:00 00:00 Intake Total 876 ml Output Total 1600 ml Balance -724 ml Result Diagram: 02/22/18 0454 02/23/18 0154 Imaging Last Impressions Chest X-Ray 02/17/18 0000 Signed Impressions: Service Date/Time: Saturday, February 17, 2018 04:00 - CONCLUSION: 1. Patchy alveolar disease characteristic of edema or pneumonia. There has been no significant change when compared to the prior exam. To Vaughn MD Chest CT 02/12/18 1334 Signed Impressions: Service Date/Time: Monday, February 12, 2018 14:07 - CONCLUSION: 1. The loculated anterior left pneumothorax has resolved. A small left pleural effusion remains present and the 2 left chest tubes appear to be in good position to drain the fluid. 2. Significant improvement in the bilateral chest wall subcutaneous emphysema. 3. Stable severe kinking of the large bore right chest tube. This chest tube also extends into the fissure. Given these 2 findings, this likely not providing any significant suction. Consider removal. 4. Stable severe bilateral airspace consolidation with multifocal areas of cavitation. Michael Perea MD Liver Ultrasound 02/11/18 0000 Signed Impressions: Service Date/Time: Sunday, February 11, 2018 09:34 - CONCLUSION: Nondiagnostic examination CT scan is recommended for further evaluation if clinically indicated. To Vaughn MD Neck CT 02/10/18 0000 Signed Impressions: Service Date/Time: Saturday, February 10, 2018 14:57 - CONCLUSION: 1. Extensive subcutaneous edema in the neck which has dissected cephalad from the chest and is worse on the left side. 2. Support apparatus as above. See chest CT report for evaluation of lungs. 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 No adenopathy. Everett Ng MD Procedures 02/05- Right emergent 20 F chest tube placement 02/06: Left 28 Thai chest tube placement, right chest tube replacement 28 Thai Objective Remarks HEENT: Sedated, Pallor present, no icterus, tongue/ mucosa moist SQ emphysema resolved mostly. Neck: No JVD. New tracheostomy in place with no significant bleed Chest/Pulm: on mech vent, air entry decreased bilaterally at bases, scattered rhonchi bilaterally. 28F chest tubes bilaterally to -40cm H20. Pigtails x1 in left, 1 on right CVS: S1-S2 regular, no murmur GI/abdomen: soft, nontender, bowel sounds hypoactive Neuro: RASS -2, currently on fentanyl, propofol infusions. Patient moving right upper extremity spontaneously left upper extremity appears weaker. Withdraws bilateral lower extremity, Grimaces to pain Extremities: warm bilaterally, 1+bilateral peripheral edema upper and lower extremities A/P Assessment and Plan Neuro: Acute metabolic encephalopathy Neuro checks per ICU protocol. Propofol and fentanyl to maintain ventilator synchrony. Scheduled oxycodone for pain, use as needed fentanyl, Morphine for pain Daily sedation vacation, as tolerated CT head negative for acute findings 02/21/2018 Pulm: Acute hypoxemic respiratory failure MRSA pneumonia, with multiple cavitations and consolidation Moderate sized left pleural effusion, ? empyema COPD Bilateral pneumothorax, status post large bore chest tube Persistent right apical pneumothorax Post Influenza pneumonia Continue vent support keep sats >90%, s/p Trach 02/18 On PRVC RR 16, TV 500, IT:1.0, PEEP:10, FIO2: 40%. Daily SBT with high pressure support CT chest on 02/19/2018 showed bilateral consolidation extensive, cavitating lesions, moderate loculated left effusion Fluid studies sent 02/22/2018 not consistent with empyema Bilateral pigtail catheters and [address](4 total)-has no output now Moderate left-sided pleural effusion, new left pigtail chest tube placed by radiology 02/21/2018 Thoracic surgery has followed- Dr. Thornton-not planning on any surgical intervention DuoNeb scheduled and when necessary. Renal: Acute kidney injury-resolved Dehydration-resolved -Maintain Alexandre -Monitor renal function, I/O's, electrolytes replacement per protocol. -See below re diuresis Cardiovascular: A. fib with RVR (converted to NSR 02/02) -Significantly fluid overloaded -02/05 amiodarone infusion discontinued. -02/05 GRANT -no valvular vegetations. EF 55-60%, trace MVR, mild TVR, PAP 35 -IV Lasix 40 mg every 12 hours-increase to 40 q6, Diamox for 3 days -On Cardizem 60mg Q6, Lopressor 25mg Q12 GI Elevated LFT;s ( trending down) Hepatitis profile: Negative. US liver: non-diagnostic study -Tube feeds Jevity 1.5 resumed On Pepcid 20mg BID J tube placement in OR early next week ID: MRSA, Enterobacter pneumonia MRSA Bacteremia -Antibiotics per ID. On Zyvox, Teflaro and Zosyn. Persistent MRSA and sputum -Monitor for signs of new infections ( Fever, WBC) -ID- Dr. Singleton following. 02/10, 02/15, 02/17 Sputum: MRSA 02/10 BC: NGTD 01/30 MRSA bacteremia Endocrine: Hyperglycemia Medium scale sliding scale insulin dosing Glucose monitoring per ICU protocol DVT GI prophylaxis - Teds SCDs - Subcutaneous heparin - Pepcid Lines: peripheral IV's. Palliative care is following Code status: Alternative code Level 3 Remains critically ill appears to be slightly more stable today. FiO2 at 40% PEEP reduced to 10 will attempt reduction to 8. Right upper pneumothorax persists all chest tubes to suction Sarita Rodriguez MD Feb 23, 2018 11:43
[2018-02-23] MEDS: LINEZOLID 600 MG PREMIX 300 ML IV SCH (12:01)
[2018-02-23] MEDS: METOPROLOL TARTRATE 25 MG TAB PO SCH (12:02)
[2018-02-23 14:33] LABS: AMYLASE BODY FLUID 32 U/L; AMYLASE BODY FLUID TYPE PLEURAL
[2018-02-23 16:27] LABS: ALBUMIN 1.7 GM/DL (3.4-5.0); ALKALINE PHOSPHATASE 446 U/L (45-117); ALT (GPT) 40 U/L (10-53); AST (GOT) 76 U/L (15-37); BICARBONATE 36.7 MEQ/L (21.0-32.0); BLOOD UREA NITROGEN 10 MG/DL (7-18); CALCIUM 8.6 MG/DL (8.5-10.1); CHLORIDE 100 MEQ/L (98-107); CREATININE 0.66 MG/DL (0.50-1.00); GLOMERULAR FILTRATION RATE 91 ML/MIN (>89); GLUCOSE,RANDOM 158 MG/DL (74-106); MAGNESIUM 2.2 MG/DL (1.5-2.5); PHOSPHORUS 3.4 MG/DL (2.5-4.9); SODIUM (NA) 139 MEQ/L (136-145); TOTAL BILIRUBIN ADULT 0.5 MG/DL (0.2-1.0)
[2018-02-24] VITALS (26 sets, daily range): BP systolic 164–174; BP diastolic 74–78; PULSE 63–101; RESP 19–21; TEMP 97.7–99; O2SAT 92–100
[2018-02-24] MEDS: METOPROLOL TARTRATE 25 MG TAB PO SCH ×2 (00:18→14:02)
[2018-02-24] MEDS: LINEZOLID 600 MG PREMIX 300 ML IV SCH ×2 (00:18→14:04)
[2018-02-24] MEDS: oxyCODONE HCL ORAL CONC 5 MG/0.25 ML SYRINGE PO SCH ×4 (02:13→20:47)
[2018-02-24] MEDS: FUROSEMIDE 40 MG/4 ML VIAL IV PUSH SCH ×4 (02:14→20:15)
[2018-02-24] MEDS: CEFTAROLINE INJ 600 MG in SODIUM CHLORIDE 0.9% INJ 100 ML IV SCH ×2 (03:19→14:04)
[2018-02-24] MEDS: CHLORHEXIDINE GLUCONATE 2 % 1 PACK (2 CLOTHS) TOP SCH (03:20)
[2018-02-24] MEDS: PROPOFOL 1000 MG/100 ML IV PRN (03:23)
[2018-02-24] MEDS: RESP: ALBUTEROL 2.5 MG/IPRATROPIUM 0.5 MG NEB (SCH) NEB ×4 (03:34→20:10)
[2018-02-24 05:56] LABS: BASOPHIL # 0.2 TH/MM3 (0-0.2); BASOPHIL % 1.2 % (0.0-2.0); EOSINOPHIL # 1.1 TH/MM3 (0-0.4); EOSINOPHIL % 5.7 % (0.0-4.0); HEMATOCRIT 25.9 % (35.0-46.0); HEMOGLOBIN 8.2 GM/DL (11.6-15.3); LYMPH % 7.6 % (9.0-44.0); LYMPHOCYTE # 1.5 TH/MM3 (1.0-4.8); MEAN CELL VOLUME 87.8 FL (80.0-100.0); MEAN CORPUSCULAR HEMOGLOBIN 27.8 PG (27.0-34.0); MEAN CORPUSCULAR HGB CONC 31.6 % (32.0-36.0); MEAN PLATELET VOLUME 8.5 FL (7.0-11.0); MONO % 5.8 % (0.0-8.0); MONOCYTE # 1.2 TH/MM3 (0-0.9); NEUT % 79.7 % (16.0-70.0); PLATELET COUNT 420 TH/MM3 (150-450); RED BLOOD COUNT 2.95 MIL/MM3 (4.00-5.30); RED CELL DISTRIBUTION WIDTH 16.5 % (11.6-17.2)
[2018-02-24 06:21] LABS: ALBUMIN 1.9 GM/DL (3.4-5.0); AST (GOT) 54 U/L (15-37); BICARBONATE 33.8 MEQ/L (21.0-32.0); BLOOD UREA NITROGEN 12 MG/DL (7-18); CALCIUM 8.7 MG/DL (8.5-10.1); CHLORIDE 97 MEQ/L (98-107); CREATININE 0.62 MG/DL (0.50-1.00); GLOMERULAR FILTRATION RATE 98 ML/MIN (>89); MAGNESIUM 2.1 MG/DL (1.5-2.5); SODIUM (NA) 139 MEQ/L (136-145)
[2018-02-24 06:27] LABS: ALKALINE PHOSPHATASE 402 U/L (45-117); ALT (GPT) 40 U/L (10-53); GLUCOSE,RANDOM 181 MG/DL (74-106); PHOSPHORUS 3.5 MG/DL (2.5-4.9); TOTAL BILIRUBIN ADULT 0.4 MG/DL (0.2-1.0); TOTAL PROTEIN 8.2 GM/DL (6.4-8.2)
[2018-02-24] MEDS: DILTIAZEM HCL 30 MG TAB PO SCH ×3 (06:27→18:16)
[2018-02-24] MEDS: HEPARIN SODIUM - SQ 10,000 UNITS/ML VIAL SQ SCH ×3 (06:27→23:16)
[2018-02-24] MEDS: INSULIN ASPART SUPPLEMENTAL SCALE SQ SCH ×3 (06:28→18:16)
--- NOTE | 2018-02-24 06:30 | RADRPT ---
EXAM DATE/TIME: 02/24/2018 05:38 [facility] COMPARISON: CHEST SINGLE AP, February 23, 2018, 8:53. INDICATIONS : Shortness of breath, possible pulmonary disease. MEDICAL HISTORY : Sepsis. SURGICAL HISTORY : Gastric bypass. Tonsillectomy. ENCOUNTER: Subsequent ACUITY: 1 month PAIN SCORE: Non-responsive. LOCATION: Bilateral chest FINDINGS: A single portable frontal view of the chest shows no discernible pneumothorax. 2 thoracostomy tubes s een bilaterally. Tracheostomy tube and nasogastric tube. Tip of the nasogastric tube just past the GE junction. Diffuse consolidation throughout the right lung and to a lesser left lower lobe. This is u nchanged. Small left effusion. Heart is normal in size. CONCLUSION: 1. No pneumothorax. 2. Unchanged bilateral pulmonary infiltrates and small left effusion. Ilya Cifuentes Jr., MD on February 24, 2018 at 6:28 Board Certified Radiologist. This report was verified electronically.
[2018-02-24 06:38] LABS: BASOPHILS 1 % (0-2); LYMPHOCYTES 4 % (9-44); METAMYELOCYTES 1 % (0-1); MONOCYTES 3 % (0-8); MYELOCYTES 2 % (0-0); NEUTROPHIL # MANUAL DIFF 16.6 TH/MM3 (1.8-7.7); POLYS (SEG NEUTROPHILS) 80 % (16-70)
--- NOTE | 2018-02-24 09:18 | HHI.PR ---
Subjective Remarks Patient remains sedated with Diprivan and Fentanyl infusions. On PRVC with PEEP: 8, FIO2:60%. Afebrile. Objective Vital Signs Vital Signs Date Time Temp Pulse Resp B/P (MAP) Pulse Ox O2 Delivery O2 Flow Rate FiO2 02/24/18 09:02 55 02/24/18 07:32 92 55 02/24/18 06:00 89 02/24/18 04:20 96 55 02/24/18 04:00 98.1 87 21 165/75 (105) 92 02/24/18 04:00 55 02/24/18 04:00 87 02/24/18 03:13 16 02/24/18 02:00 63 02/24/18 01:13 97 55 02/24/18 00:00 98.1 93 19 164/77 (106) 98 02/24/18 00:00 55 02/24/18 00:00 93 02/23/18 22:49 99 55 02/23/18 22:00 77 02/23/18 20:00 55 02/23/18 20:00 73 02/23/18 20:00 98.3 73 16 123/60 (81) 100 02/23/18 19:50 100 55 02/23/18 18:00 84 02/23/18 17:00 55 02/23/18 17:00 92 02/23/18 17:00 92 55 02/23/18 16:00 55 02/23/18 16:00 92 02/23/18 16:00 99.5 92 17 152/67 (95) 93 02/23/18 15:00 90 02/23/18 14:45 55 02/23/18 14:43 55 02/23/18 14:43 92 55 02/23/18 14:09 40 02/23/18 14:08 40 02/23/18 14:08 94 40 02/23/18 14:00 85 02/23/18 13:00 74 02/23/18 12:00 86 02/23/18 12:00 40 02/23/18 12:00 99.0 86 18 126/60 (82) 92 02/23/18 11:00 88 02/23/18 11:00 40 02/23/18 10:23 100 40 02/23/18 10:00 91 02/23/18 09:30 40 I/O 02/23/18 02/23/18 02/23/18 02/24/18 02/24/18 02/24/18 07:00 15:00 23:00 07:00 15:00 23:00 Intake Total 1376 ml 50 ml 867 ml 1516 ml Output Total 1600 ml 2710 ml 2805 ml Balance -224 ml 50 ml -1843 ml -1289 ml IV Total 600 ml 50 ml 286 ml 747 ml Tube Feeding 656 ml 461 ml 649 ml Other 120 ml 120 ml 120 ml Output Urine Total 1600 ml 2700 ml 2800 ml Chest Tube Drainage Total 0 ml 10 ml 5 ml # Bowel Movements 1 Result Diagram: 02/24/18 0515 02/24/18 0515 Other Results Last Impressions Chest X-Ray 02/24/18 0600 Signed Impressions: Service Date/Time: Saturday, February 24, 2018 05:38 - CONCLUSION: 1. No pneumothorax. 2. Unchanged bilateral pulmonary infiltrates and small left effusion. Ilya Cifuentes Jr., MD Head CT 02/21/18 0000 Signed Impressions: Service Date/Time: February 14:24 - CONCLUSION: 1. Bilateral mastoiditis. 2. Otherwise negative. No acute intracranial process to explain current clinical symptoms Gino Hernandez MD Chest Tube Insertion 02/21/18 0000 Signed Impressions: Service Date/Time: February 14:36 - CONCLUSION: Uncomplicated chest tube placement as above. Karri Muhammad MD Chest CT 02/19/18 0000 Signed Impressions: Service Date/Time: Monday, February 19, 2018 13:36 - CONCLUSION: 1. Multilobar consolidation with multiple cavities, not significantly changed. Differential possibilities are again noted to include septic emboli, TB and fungal etiologies including necrotizing process and autoimmune process such as Britton's. 2. Small right anterobasilar pneumothorax. Right-sided chest tube likely nonfunctional. 3. 2 left-sided chest tubes with loculated left pleural effusion, slightly more prominent on current study. Karri Muhammad MD Abdomen X-Ray 02/18/18 0000 Signed Impressions: Service Date/Time: Sunday, February 18, 2018 15:47 - CONCLUSION: 1. Suction type NGT in the region of the GE junction. Romeo Espinoza MD Liver Ultrasound 02/11/18 0000 Signed Impressions: Service Date/Time: Sunday, February 11, 2018 09:34 - CONCLUSION: Nondiagnostic examination CT scan is recommended for further evaluation if clinically indicated. To Vaughn MD Neck CT 02/10/18 0000 Signed Impressions: Service Date/Time: Saturday, February 10, 2018 14:57 - CONCLUSION: 1. Extensive subcutaneous edema in the neck which has dissected cephalad from the chest and is worse on the left side. 2. Support apparatus as above. See chest CT report for evaluation of lungs. 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 No adenopathy. Everett Ng MD Objective Remarks GENERAL: WBWN Female, on Vent, sedated SKIN: Warm and dry. HEAD: Normocephalic. EYES: No scleral icterus. No injection or drainage. NECK: Supple, trachea midline. No JVD or lymphadenopathy. CARDIOVASCULAR: Regular rate and rhythm without murmurs, gallops, or rubs. RESPIRATORY: Breath sounds equal bilaterally. No accessory muscle use. [address] SQ Emphysema. GASTROINTESTINAL: Abdomen soft, non-tender, nondistended. MUSCULOSKELETAL: No cyanosis, or edema. Neuro: Sedated, A/P Assessment and Plan Acute hypoxemic respiratory failure s/p trach MRSA pneumonia, with multiple cavitations and consolidation s/p Moderate sized left pleural effusion, ? empyema COPD Bilateral pneumothorax, status post large bore chest tube Post Influenza pneumonia Leukocytosis Anemia PLAN: Cont Vent support keep sats >92% On PRVC RR 16, TV 600, PEEP:8 FIO2: 60%. Decrease FIO2: 50% as bernarad Bronchodilators Pulm toilet, trach care Monitor CT output. CXR today showed no evidence of PTX, b/l pulm infiltrates On Fentanyl and Diprivan dip for sedation. Daily sedation vacation Abx per ID ( On Zyvox) monitor for signs of infections ( Fever, WBC) Continue with tube feeds-On Jevity 1.5@60ml/hr GI/DVT prophylaxis Palliative care is following Lenard Qureshi MD Feb 24, 2018 09:18
[2018-02-24] MEDS: ALBUMIN 25% INJ 50 ML IV SCH ×2 (10:12→23:16)
[2018-02-24] MEDS: POTASSIUM CHLORIDE 25 MEQ EFFERVESCENT TAB PO SCH (10:18)
[2018-02-24] MEDS: FAMOTIDINE 20 MG TAB PO SCH ×2 (10:18→20:15)
[2018-02-24] MEDS: ASPIRIN 81 MG CHEW TAB CHEW SCH (10:18)
[2018-02-24] MEDS: DOCUSATE SODIUM 50 MG/SENNA 8.6 MG TAB PO SCH ×2 (10:18→20:15)
[2018-02-24] MEDS: SODIUM CHLORIDE 0.9% FLUSH 10 ML FLUSH IV FLUSH SCH ×2 (10:19→20:14)
[2018-02-24] MEDS: CHLORHEXIDINE 0.12% (ORAL KIT) 15 ML CUP MT SCH ×2 (10:19→20:00)
[2018-02-24] MEDS: fentaNYL DRIP 250 ML IV PRN (10:21)
--- NOTE | 2018-02-24 11:09 | HHI.CCPN ---
Subjective Remarks/Hospital Course 01/30: 62-year-old female presents for evaluation of increasing shortness of breath and chest pain. She reports 1 week of coughing 3 days of pain in her left chest which radiates to her back, which prompted the visit to the emergency room yesterday. She rates her pain a 6 out of 10. She reports fevers , chills, fatigue, mild nausea. She denies any abdominal pain, vomiting. Patient denies any significant past medical history. Symptom onset was gradual , symptom severity is severe, there are no alleviating factors. Patient states that she has been taking the azithromycin antibiotics that were prescribed to her. She denies any current or historical tobacco use. 01/31: Intubated at 1 AM this morning and placed on mechanical ventilation due to worsening respiratory distress. Currently sedated, orally intubated on mechanical ventilation. 02/01: Remains sedated, orally intubated on mechanical ventilation. Went into A. fib with RVR this morning. Loaded with amiodarone, started on amiodarone drip and given digoxin 0.5 mg IV 02/02: Remains sedated, orally intubated on mechanical ventilation. Right sided pigtail catheter in place with 1+ air leak. Converted to sinus rhythm overnight. Remains on amiodarone gtt. 02/03: Remains sedated, orally intubated on mechanical ventilation. 1+ air leak and right sided pigtail catheter. Tolerating tube feeds. Remains on amiodarone gtt. 02/04: Noted to have pneumothorax on the left side this morning on routine chest x -ray which appeared to be under tension. Right sided pigtail catheter placed by Dr. Peña with reexpansion of lung. Patient remains sedated, orally intubated on mechanical ventilation. 1+ airleak and bilateral chest tubes noted. 02/05: Afebrile. Persistent leukocytosis, bilateral chest tubes continue on wall suction. Chest x-ray pending this a.m.. Patient scheduled for GRANT today, discussed with Dr. Vázquez. Patient continues on amiodarone infusion with sinus rhythm. Postprocedure GRANT,this afternoon, the patient became extremely agitated, noted significant increase in subcu emphysema, peak pressures 50's, O2 saturation significantly decreased to 78-80 %. Stat chest x-ray performed patient was noted to have a significant right pneumothorax. 20 [place] right chest tube placement emergently, with increase in O2 saturation decrease in peak inspiratory pressures. 02/06: Afebrile. Patient with persistent bilateral pneumothoraces, with diffuse bilateral infiltrates and massive SQ emphysema. O2 requirement significantly increased during the night, PIP 38-44. 28 F chest tubes were placed bilaterally with resolution of left pneumothorax and minimization of right pneumothorax, and improved oxygenation. 02/07: TMax 100.1 Chest tubes remain on suction. Resolution of pneumothoraces, continued extensive SQ emphysema. Persistent leukocytosis noted. FiO2 weaned to 50%. 02/08: Late entry note patient seen at 1250. Attempts at CPAP trials, unsuccessful this morning. FiO2 decreased 50%, with adequate oxygenation. 02/09: Afebrile. The patient was transitioned to CPAP trials with pressure support of 22/8. FiO2 currently at 55% continuing to wean. Patient noted with positive fluid balance Lasix 40 mg IV now, patient is initiated on Lasix 40 daily. Patient with positive air leak in chest tubes #1-28 [place] right and #3 pigtail left, both at 2+. Sedation vacation initiated early this a.m. patient neurologically intact. Patient continues on moderate sedation for CPAP to maintain ventilator synchrony plan for transitioning to Precedex. Noted improvement with subcu emphysema. Extensive discussion with patient's daughter regarding a possibility of a tracheostomy if unsuccessful with ventilator weaning process. 02/10: Subcutaneous emphysema has worsened overnight per RN who took care of the patient yesterday, now extending to the upper chest left neck and to the left side of the face including left eyelids. No increase in FiO2 requirement currently on 55%. I have reduced inspiratory pressure from 32 to 28. FiO2 reduced to 50%. Will check a repeat chest x-ray in afternoon if needed. Will request CT surgical evaluation for persistent subcutaneous emphysema despite 2 chest tubes bilaterally 02/11 Patient is sedated with Diprivan, Versed and Fentanyl drips. T: 101.[address] guided chest tube placement by IR today 02/12 No events overnight. Remains sedated and intubated. Afebrile. On PC/AC with PEEP: 8 and FIO2 40%. 02/13 Patient remains intubated and heavily sedated. Afebrile. Repeat CT chest yesterday showed loculated anterior left pneumothorax has resolved. A small left pleural effusion remains present and the 2 left chest tubes appear to be in good position to drain the fluid. Significant improvement in the bilateral chest wall subcutaneous emphysema. 02/14 Patient remains sedated and intubated. Afebrile. On Bumex drip 0.5mg/hr. 02/15 Patient remains intubated and sedated, On Bumex drip 0.5mg/hr with good urine output. T:100.1 02/16 Patient remains sedated and intubated. Off Bumex drip. Afebrile. 02/17 Remains intubated and sedated with Diprivan and Fentanyl drips. Afebrile. For trach tomorrow. 02/18: Trach anticipated for today. Remains sedated. Family at the bedside updated. Coags are normal 02/19: Tracheostomy performed yesterday, patient now with increasing oxygen requirement more critical. Currently on 70% FiO2. A stat CT of the chest ordered by ID shows persistent consolidation multilobar with multiple cavitations. Family updated at the bedside. At this time do not appear to be adequately responding to treatment 02/20: Remains critical with high FiO2 and PEEP requirements. CT chest yesterday showed persistent consolidation and cavitation and a moderate-sized left pleural effusion. Sputum culture again growing MRSA. White count increased to 19,000 today. Left pleural effusion need to be drained, consult IR for CT guided chest tube, due to worsening sepsis 02/21: Patient remains intubated sedated and critically ill. PEEP requirement still remains high and FiO2 is at 50%. Radiology to place new large bore pigtail chest tube for left pleural effusion which is loculated. Will remove the small pigtail chest tube after new one is placed. On sedation hold patient appears to be weak on left side. Check CT of the head also. Grossly fluid overloaded. We will start scheduled dialysis with IV Lasix. Teflaro added to Zyvox yesterday 02/22: Continues to be requiring high oxygen currently at 50% PEEP at 8. New large bore pigtail chest tube placed on the left side yesterday with 200 mL output since placement. Bilateral previous pigtails to waterseal plan to remove the left original pigtail chest tube today. Patient continues to be encephalopathy 02/23: Remains on full ventilator support diuresing well with Lasix but still significantly fluid overloaded. Increase Lasix to 40 every 6 hours, add Diamox for 3 days. Continue chest tubes to suction. Fio2 reduced to 40% PEEP down to 10. MRI and EEG ordered due to persistent encephalopathy 02/24: No acute change in neurological status. EEG in progress. MRI pending. Right upper lobe pneumothorax resolved. Chest tubes 4 remain on -40 cm of water pressure plan for left upper and lower chest tube to be placed to waterseal today. Tracheal sutures in situ area clean dry and intact plan for suture removal of trach site tomorrow. Definition of goals of care to be discussed with palliative/ family conference scheduled for Sunday 02/25. Objective Vital Signs Date Time Temp Pulse Resp B/P (MAP) Pulse Ox O2 Delivery O2 Flow Rate FiO2 02/24/18 09:03 55 02/24/18 09:00 79 02/24/18 08:00 99.0 21 174/74 (107) 100 Intake and Output 02/24/18 02/24/18 02/25/18 08:00 16:00 00:00 Intake Total 1516 ml Output Total 2805 ml Balance -1289 ml Result Diagram: 02/24/18 0515 02/24/18 0515 Imaging Last Impressions Chest X-Ray 02/17/18 0000 Signed Impressions: Service Date/Time: Saturday, February 17, 2018 04:00 - CONCLUSION: 1. Patchy alveolar disease characteristic of edema or pneumonia. There has been no significant change when compared to the prior exam. To Vaughn MD Chest CT 02/12/18 1334 Signed Impressions: Service Date/Time: Monday, February 12, 2018 14:07 - CONCLUSION: 1. The loculated anterior left pneumothorax has resolved. A small left pleural effusion remains present and the 2 left chest tubes appear to be in good position to drain the fluid. 2. Significant improvement in the bilateral chest wall subcutaneous emphysema. 3. Stable severe kinking of the large bore right chest tube. This chest tube also extends into the fissure. Given these 2 findings, this likely not providing any significant suction. Consider removal. 4. Stable severe bilateral airspace consolidation with multifocal areas of cavitation. Michael Perea MD Liver Ultrasound 02/11/18 0000 Signed Impressions: Service Date/Time: Sunday, February 11, 2018 09:34 - CONCLUSION: Nondiagnostic examination CT scan is recommended for further evaluation if clinically indicated. To Vaughn MD Neck CT 02/10/18 0000 Signed Impressions: Service Date/Time: Saturday, February 10, 2018 14:57 - CONCLUSION: 1. Extensive subcutaneous edema in the neck which has dissected cephalad from the chest and is worse on the left side. 2. Support apparatus as above. See chest CT report for evaluation of lungs. 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 No adenopathy. Everett Ng MD Procedures 02/05- Right emergent 20 F chest tube placement 02/06: Left 28 [place] chest tube placement, right chest tube replacement 28 [place] Objective Remarks HEENT: Sedated, Pallor present, no icterus, tongue/ mucosa moist SQ emphysema resolved Neck: No JVD. New tracheostomy (day 6) in place with no significant bleed Chest/Pulm: on mech vent, air entry decreased bilaterally at bases, scattered rhonchi bilaterally. 28F chest tubes bilaterally to -40cm H20. Pigtails x1 in left, 1 on right CVS: S1-S2 regular, no murmur GI/abdomen: soft, nontender, bowel sounds hypoactive Neuro: RASS -2, currently on fentanyl, propofol infusions. Patient moving right upper extremity spontaneously left upper extremity appears weaker. Withdraws bilateral lower extremity, Grimaces to pain Extremities: warm bilaterally, 1+bilateral peripheral edema upper and lower extremities A/P Assessment and Plan Neuro: Acute metabolic encephalopathy Neuro checks per ICU protocol. Propofol and fentanyl to maintain ventilator synchrony. Scheduled oxycodone for pain, use as needed fentanyl, Morphine for pain Daily sedation vacation, as tolerated CT head negative for acute findings 02/21/2018 Pulm: Acute hypoxemic respiratory failure MRSA pneumonia, with multiple cavitations and consolidation Moderate sized left pleural effusion, ? empyema COPD Bilateral pneumothorax, status post large bore chest tube Persistent right apical pneumothorax Post Influenza pneumonia Continue vent support keep sats >90%, s/p Trach 02/18 On PRVC RR 16, TV 500, IT:1.0, PEEP:10, FIO2: 40%. Daily SBT with high pressure support CT chest on 02/19/2018 showed bilateral consolidation extensive, cavitating lesions, moderate loculated left effusion Fluid studies sent 02/22/2018 not consistent with empyema Bilateral pigtail catheters and [address](4 total)-has no output now all on 40 cm H2O suction Moderate left-sided pleural effusion, new left pigtail chest tube placed by radiology 02/21/2018 Thoracic surgery has followed- Dr. Thornton-not planning on any surgical intervention DuoNeb scheduled and when necessary. 02/24 place chest tubes left, on waterseal Renal: Acute kidney injury-resolved Dehydration-resolved -Maintain Alexandre -Monitor renal function, I/O's, electrolytes replacement per protocol. -See below re diuresis Cardiovascular: A. fib with RVR (converted to NSR 02/02) -Significantly fluid overloaded -02/05 amiodarone infusion discontinued. -02/05 GRANT -no valvular vegetations. EF 55-60%, trace MVR, mild TVR, PAP 35 -IV Lasix 40 mg every 12 hours-increase to 40 q6, Diamox for 3 days -On Cardizem 60mg Q6, Lopressor 25mg Q12 GI Elevated LFT;s ( trending down) Hepatitis profile: Negative. US liver: non-diagnostic study -Tube feeds Jevity 1.5 On Pepcid 20mg BID J tube placement in OR early next week tentatively placed ID: MRSA, Enterobacter pneumonia MRSA Bacteremia -Antibiotics per ID. On Zyvox, Teflaro and Zosyn. Persistent MRSA and sputum -Monitor for signs of new infections ( Fever, WBC) -ID- Dr. Singleton following. 02/10, 02/15, 02/17 Sputum: MRSA 02/10 BC: NGTD 01/30 MRSA bacteremia Endocrine: Hyperglycemia Medium scale sliding scale insulin dosing Glucose monitoring per ICU protocol DVT GI prophylaxis - Teds SCDs - Subcutaneous heparin - Pepcid Lines: peripheral IV's. Palliative care is following tentative plan for family conference on Sunday 02/25, to define goals of care. Patient to be made regarding PEG tube placement at that time. Code status: Alternative code Level 3 Discussed with [employer]IC at bed side (Annie) Physician Dilcia Zhong MD Feb 24, 2018 11:09
[2018-02-24] MEDS ORDERED: ARTIFICIAL TEARS OPTH SOLN 15 ML BTL EACH EYE PRN (11:15)
--- NOTE | 2018-02-24 12:28 | MG ---
cc: Kanchan Quiroz MD REFERRING PHYSICIAN: An EEG was obtained on this 62-year-old patient, being evaluated for decreased responsiveness. The patient is intubated, sedated. This EEG shows prominent theta and prominent delta activity. There are some bilateral low-amplitude beta rhythms. There is some theta activity. The background seems to be poorly reactive. Photic stimulation disclosed no change. Towards the very end, there are some faster and higher amplitude rhythms that seem to be triggered by somatosensory stimulation. INTERPRETATION: Abnormal electroencephalogram because of generalized slowing suggesting a moderate to severe diffuse disturbance of cerebral function. No epileptiform features present. Kanchan Quiroz MD OFC/TI , 12:11 PM , 12:27 PM
--- NOTE | 2018-02-24 13:22 | RADRPT ---
EXAM DATE/TIME: 02/24/2018 12:42 [facility] COMPARISON: CT BRAIN W/O CONTRAST, February 21, 2018, 14:24. INDICATIONS : Altered mental status. MEDICAL HISTORY : SURGICAL HISTORY : Gastric bypass. Tonsillectomy. ENCOUNTER: Initial ACUITY: 2 months PAIN SCORE: 0/10 LOCATION: cranial TECHNIQUE: Multiplanar, multisequence MRI of the brain was performed without contrast. FINDINGS: CEREBRUM: The ventricles are normal for age. No evidence of midline shift, mass lesion, hemorrhage or acute in farction. No extraaxial fluid collections are seen. The pituitary gland and suprasellar cistern are normal in configuration. WHITE MATTER: No significant signal abnormalities are seen in the white matter. POSTERIOR FOSSA: The cerebellum and brainstem are intact. The 4th ventricle is midline. The cerebellopontine angle is unremarkable. The cerebellar tonsils are normal in position. DIFFUSION IMAGING: No focal areas of restricted diffusion are seen. No evidence of acute infarction. EXTRACRANIAL: The visualized portions of the orbits and paranasal sinuses are unremarkable. CONCLUSION: Negative exam with no evidence of hemorrhage, mass infarction. Kevin Tello MD on February 24, 2018 at 13:19 Board Certified Radiologist. This report was verified electronically.
[2018-02-24] MEDS: hydrALAZINE HCL 20 MG/ML VIAL IV PUSH PRN (20:15)
[2018-02-25] VITALS (22 sets, daily range): BP systolic 83–177; BP diastolic 45–79; PULSE 66–100; RESP 19–28; TEMP 96.8–98.8; O2SAT 92–100
[2018-02-25] MEDS: INSULIN ASPART SUPPLEMENTAL SCALE SQ SCH ×4 (00:47→18:00)
[2018-02-25] MEDS: METOPROLOL TARTRATE 25 MG TAB PO SCH ×2 (00:47→12:07)
[2018-02-25] MEDS: DILTIAZEM HCL 30 MG TAB PO SCH ×4 (00:47→18:00)
[2018-02-25] MEDS: LINEZOLID 600 MG PREMIX 300 ML IV SCH ×2 (00:48→12:07)
[2018-02-25] MEDS: fentaNYL DRIP 250 ML IV PRN (00:49)
[2018-02-25] MEDS: PROPOFOL 1000 MG/100 ML IV PRN (02:11)
[2018-02-25] MEDS: oxyCODONE HCL ORAL CONC 5 MG/0.25 ML SYRINGE PO SCH ×4 (02:12→20:13)
[2018-02-25] MEDS: FUROSEMIDE 40 MG/4 ML VIAL IV PUSH SCH ×4 (02:12→20:12)
[2018-02-25] MEDS: CEFTAROLINE INJ 600 MG in SODIUM CHLORIDE 0.9% INJ 100 ML IV SCH ×2 (02:13→15:21)
[2018-02-25] MEDS: RESP: ALBUTEROL 2.5 MG/IPRATROPIUM 0.5 MG NEB (SCH) NEB ×4 (03:20→20:28)
[2018-02-25] MEDS: CHLORHEXIDINE GLUCONATE 2 % 1 PACK (2 CLOTHS) TOP SCH (04:00)
--- NOTE | 2018-02-25 04:45 | RADRPT ---
EXAM DATE/TIME: 02/25/2018 04:01 [facility] COMPARISON: CHEST SINGLE AP, February 24, 2018, 5:38. INDICATIONS : Shortness of breath, possible pulmonary disease. MEDICAL HISTORY : Sepsis. SURGICAL HISTORY : Gastric bypass. Tonsillectomy. ENCOUNTER: Subsequent ACUITY: 1 month PAIN SCORE: Non-responsive. LOCATION: Bilateral chest FINDINGS: A single view of the chest demonstrates 2 right-sided and 2 left-sided chest tubes. No pneumothorax. Patchy airspace consolidation bilaterally with pleural effusions, loculated on the left side but shoaib lar to prior exam. Tracheostomy unchanged. NG tip in stomach. CONCLUSION: 1. Stable exam compared with February 24. Bilateral chest tubes without pneumothorax. Everett Ng MD on February 25, 2018 at 4:42 Board Certified Radiologist. This report was verified electronically.
[2018-02-25] MEDS: HEPARIN SODIUM - SQ 10,000 UNITS/ML VIAL SQ SCH ×3 (07:00→21:15)
[2018-02-25] MEDS ORDERED: fentaNYL 100 MCG/HR PATCH T-DERMAL SCH (07:15)
[2018-02-25 07:29] LABS: AUTOMATED NEUTROPHIL # 18.3 TH/MM3 (1.8-7.7); BASOPHIL # 0.1 TH/MM3 (0-0.2); BASOPHIL % 0.4 % (0.0-2.0); EOSINOPHIL # 0.5 TH/MM3 (0-0.4); EOSINOPHIL % 2.1 % (0.0-4.0); HEMOGLOBIN 7.9 GM/DL (11.6-15.3); LYMPH % 6.1 % (9.0-44.0); LYMPHOCYTE # 1.3 TH/MM3 (1.0-4.8); MEAN CELL VOLUME 85.4 FL (80.0-100.0); MEAN CORPUSCULAR HEMOGLOBIN 27.2 PG (27.0-34.0); MEAN CORPUSCULAR HGB CONC 31.8 % (32.0-36.0); MEAN PLATELET VOLUME 7.9 FL (7.0-11.0); MONO % 4.6 % (0.0-8.0); NEUT % 86.8 % (16.0-70.0); PLATELET COUNT 537 TH/MM3 (150-450); RED BLOOD COUNT 2.92 MIL/MM3 (4.00-5.30); WHITE BLOOD COUNT 21.1 TH/MM3 (4.0-11.0)
--- NOTE | 2018-02-25 07:34 | HHI.CCPN ---
Subjective Remarks/Hospital Course 01/30: 62-year-old female presents for evaluation of increasing shortness of breath and chest pain. She reports 1 week of coughing 3 days of pain in her left chest which radiates to her back, which prompted the visit to the emergency room yesterday. She rates her pain a 6 out of 10. She reports fevers , chills, fatigue, mild nausea. She denies any abdominal pain, vomiting. Patient denies any significant past medical history. Symptom onset was gradual , symptom severity is severe, there are no alleviating factors. Patient states that she has been taking the azithromycin antibiotics that were prescribed to her. She denies any current or historical tobacco use. 01/31: Intubated at 1 AM this morning and placed on mechanical ventilation due to worsening respiratory distress. Currently sedated, orally intubated on mechanical ventilation. 02/01: Remains sedated, orally intubated on mechanical ventilation. Went into A. fib with RVR this morning. Loaded with amiodarone, started on amiodarone drip and given digoxin 0.5 mg IV 02/02: Remains sedated, orally intubated on mechanical ventilation. Right sided pigtail catheter in place with 1+ air leak. Converted to sinus rhythm overnight. Remains on amiodarone gtt. 02/03: Remains sedated, orally intubated on mechanical ventilation. 1+ air leak and right sided pigtail catheter. Tolerating tube feeds. Remains on amiodarone gtt. 02/04: Noted to have pneumothorax on the left side this morning on routine chest x -ray which appeared to be under tension. Right sided pigtail catheter placed by Dr. Peña with reexpansion of lung. Patient remains sedated, orally intubated on mechanical ventilation. 1+ airleak and bilateral chest tubes noted. 02/05: Afebrile. Persistent leukocytosis, bilateral chest tubes continue on wall suction. Chest x-ray pending this a.m.. Patient scheduled for GRANT today, discussed with Dr. Vázquez. Patient continues on amiodarone infusion with sinus rhythm. Postprocedure GRANT,this afternoon, the patient became extremely agitated, noted significant increase in subcu emphysema, peak pressures 50's, O2 saturation significantly decreased to 78-80 %. Stat chest x-ray performed patient was noted to have a significant right pneumothorax. 20 Argentine right chest tube placement emergently, with increase in O2 saturation decrease in peak inspiratory pressures. 02/06: Afebrile. Patient with persistent bilateral pneumothoraces, with diffuse bilateral infiltrates and massive SQ emphysema. O2 requirement significantly increased during the night, PIP 38-44. 28 F chest tubes were placed bilaterally with resolution of left pneumothorax and minimization of right pneumothorax, and improved oxygenation. 02/07: TMax 100.1 Chest tubes remain on suction. Resolution of pneumothoraces, continued extensive SQ emphysema. Persistent leukocytosis noted. FiO2 weaned to 50%. 02/08: Late entry note patient seen at 1250. Attempts at CPAP trials, unsuccessful this morning. FiO2 decreased 50%, with adequate oxygenation. 02/09: Afebrile. The patient was transitioned to CPAP trials with pressure support of 22/8. FiO2 currently at 55% continuing to wean. Patient noted with positive fluid balance Lasix 40 mg IV now, patient is initiated on Lasix 40 daily. Patient with positive air leak in chest tubes #1-28 Argentine right and #3 pigtail left, both at 2+. Sedation vacation initiated early this a.m. patient neurologically intact. Patient continues on moderate sedation for CPAP to maintain ventilator synchrony plan for transitioning to Precedex. Noted improvement with subcu emphysema. Extensive discussion with patient's daughter regarding a possibility of a tracheostomy if unsuccessful with ventilator weaning process. 02/10: Subcutaneous emphysema has worsened overnight per RN who took care of the patient yesterday, now extending to the upper chest left neck and to the left side of the face including left eyelids. No increase in FiO2 requirement currently on 55%. I have reduced inspiratory pressure from 32 to 28. FiO2 reduced to 50%. Will check a repeat chest x-ray in afternoon if needed. Will request CT surgical evaluation for persistent subcutaneous emphysema despite 2 chest tubes bilaterally 02/11 Patient is sedated with Diprivan, Versed and Fentanyl drips. T: 101.[address] guided chest tube placement by IR today 02/12 No events overnight. Remains sedated and intubated. Afebrile. On PC/AC with PEEP: 8 and FIO2 40%. 02/13 Patient remains intubated and heavily sedated. Afebrile. Repeat CT chest yesterday showed loculated anterior left pneumothorax has resolved. A small left pleural effusion remains present and the 2 left chest tubes appear to be in good position to drain the fluid. Significant improvement in the bilateral chest wall subcutaneous emphysema. 02/14 Patient remains sedated and intubated. Afebrile. On Bumex drip 0.5mg/hr. 02/15 Patient remains intubated and sedated, On Bumex drip 0.5mg/hr with good urine output. T:100.1 02/16 Patient remains sedated and intubated. Off Bumex drip. Afebrile. 02/17 Remains intubated and sedated with Diprivan and Fentanyl drips. Afebrile. For trach tomorrow. 02/18: Trach anticipated for today. Remains sedated. Family at the bedside updated. Coags are normal 02/19: Tracheostomy performed yesterday, patient now with increasing oxygen requirement more critical. Currently on 70% FiO2. A stat CT of the chest ordered by ID shows persistent consolidation multilobar with multiple cavitations. Family updated at the bedside. At this time do not appear to be adequately responding to treatment 02/20: Remains critical with high FiO2 and PEEP requirements. CT chest yesterday showed persistent consolidation and cavitation and a moderate-sized left pleural effusion. Sputum culture again growing MRSA. White count increased to 19,000 today. Left pleural effusion need to be drained, consult IR for CT guided chest tube, due to worsening sepsis 02/21: Patient remains intubated sedated and critically ill. PEEP requirement still remains high and FiO2 is at 50%. Radiology to place new large bore pigtail chest tube for left pleural effusion which is loculated. Will remove the small pigtail chest tube after new one is placed. On sedation hold patient appears to be weak on left side. Check CT of the head also. Grossly fluid overloaded. We will start scheduled dialysis with IV Lasix. Teflaro added to Zyvox yesterday 02/22: Continues to be requiring high oxygen currently at 50% PEEP at 8. New large bore pigtail chest tube placed on the left side yesterday with 200 mL output since placement. Bilateral previous pigtails to waterseal plan to remove the left original pigtail chest tube today. Patient continues to be encephalopathy 02/23: Remains on full ventilator support diuresing well with Lasix but still significantly fluid overloaded. Increase Lasix to 40 every 6 hours, add Diamox for 3 days. Continue chest tubes to suction. Fio2 reduced to 40% PEEP down to 10. MRI and EEG ordered due to persistent encephalopathy 02/24: No acute change in neurological status. EEG in progress. MRI pending. Right upper lobe pneumothorax resolved. Chest tubes 4 remain on -40 cm of water pressure plan for left upper and lower chest tube to be placed to waterseal today. Tracheal sutures in situ area clean dry and intact plan for suture removal of trach site tomorrow. Definition of goals of care to be discussed with palliative/ family conference scheduled for Sunday 02/25. 02/25: Remains on full vent support, PEEP 8, FiO2 50%. Remains on propofol and fentanyl. CXR remains stable. Tolerated PSV for 2 hours yesterday. Start Precedex and clonidine to facilitate more aggressive SBT, change fentanyl to patch. MRI negative for CVA, EEG encephalopathy Objective Vital Signs Date Time Temp Pulse Resp B/P (MAP) Pulse Ox O2 Delivery O2 Flow Rate FiO2 02/25/18 04:11 94 55 02/25/18 04:00 79 02/25/18 04:00 97.7 19 161/72 (101) Intake and Output 02/25/18 02/25/18 02/26/18 08:00 16:00 00:00 Intake Total 496 ml Balance 496 ml Result Diagram: 02/24/18 0515 02/24/18 0515 Imaging Last Impressions Chest X-Ray 02/17/18 0000 Signed Impressions: Service Date/Time: Saturday, February 17, 2018 04:00 - CONCLUSION: 1. Patchy alveolar disease characteristic of edema or pneumonia. There has been no significant change when compared to the prior exam. To Vaughn MD Chest CT 02/12/18 1334 Signed Impressions: Service Date/Time: Monday, February 12, 2018 14:07 - CONCLUSION: 1. The loculated anterior left pneumothorax has resolved. A small left pleural effusion remains present and the 2 left chest tubes appear to be in good position to drain the fluid. 2. Significant improvement in the bilateral chest wall subcutaneous emphysema. 3. Stable severe kinking of the large bore right chest tube. This chest tube also extends into the fissure. Given these 2 findings, this likely not providing any significant suction. Consider removal. 4. Stable severe bilateral airspace consolidation with multifocal areas of cavitation. Michael Perea MD Liver Ultrasound 02/11/18 0000 Signed Impressions: Service Date/Time: Sunday, February 11, 2018 09:34 - CONCLUSION: Nondiagnostic examination CT scan is recommended for further evaluation if clinically indicated. To Vaughn MD Neck CT 02/10/18 0000 Signed Impressions: Service Date/Time: Saturday, February 10, 2018 14:57 - CONCLUSION: 1. Extensive subcutaneous edema in the neck which has dissected cephalad from the chest and is worse on the left side. 2. Support apparatus as above. See chest CT report for evaluation of lungs. 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 No adenopathy. Everett Ng MD Procedures 02/05- Right emergent 20 F chest tube placement 02/06: Left 28 Argentine chest tube placement, right chest tube replacement 28 Argentine Objective Remarks HEENT: Sedated, Pallor present, no icterus, tongue/ mucosa moist SQ emphysema resolved Neck: No JVD. New tracheostomy in place with no significant bleed Chest/Pulm: on mech vent, air entry decreased bilaterally at bases, scattered rhonchi bilaterally. 28F chest tubes bilaterally to -40cm H20. Pigtails bilateral to -40 CVS: S1-S2 regular, no murmur GI/abdomen: soft, nontender, bowel sounds hypoactive Neuro: RASS -2, currently on fentanyl, propofol infusions. Patient moving right upper extremity spontaneously left upper extremity appears weaker. Withdraws bilateral lower extremity weakly to pain, Grimaces to pain. Tracks with eyes Extremities: warm bilaterally, 1+bilateral peripheral edema upper and lower extremities A/P Assessment and Plan Neuro: Acute metabolic encephalopathy DC Propofol and fentanyl gtt. Start Precedex + Clonidine. Use PRN IV Ativan for agitation. Start Fentanyl patch Scheduled oxycodone for pain, use as needed fentanyl, Morphine for pain Neuro checks per ICU protocol. Daily sedation vacation, as tolerated CT head negative for acute findings 02/21/2018 Pulm: Acute hypoxemic respiratory failure MRSA pneumonia, with multiple cavitations and consolidation ARDS Moderate sized L pleural effusion s/p 14 F chest tube COPD Bilateral pneumothorax, status post large bore chest tube Persistent right apical pneumothorax Post Influenza pneumonia Continue vent support keep sats >90%, s/p Trach 02/18 On PRVC RR 16, TV 500, IT:1.0, PEEP: 8, FIO2: 50%. Daily SBT with high pressure support CT chest on 02/19/2018 showed bilateral consolidation extensive, cavitating lesions, moderate loculated left effusion Fluid studies sent 02/22/2018 not consistent with empyema Bilateral pigtail catheters and [address](4 total)-has minimal ouput, but maintain all chest tubes due to pneumo re-expansion Moderate left-sided pleural effusion, new left pigtail chest tube placed by radiology 02/21/2018 , but with only partial drainage Thoracic surgery has followed- Dr. Thornton-not planning on any surgical intervention DuoNeb scheduled and when necessary. Renal: Acute kidney injury-resolved Fluid overload -Maintain Alexandre -Monitor renal function, I/O's, electrolytes replacement per protocol. -See below re diuresis Cardiovascular: A. fib with RVR (converted to NSR 02/02) Significantly fluid overloaded -02/05 amiodarone infusion discontinued. -02/05 GRANT -no valvular vegetations. EF 55-60%, trace MVR, mild TVR, PAP 35 -IV Lasix 40 mg q6, Diamox for 3 days being completed -On Cardizem 60mg Q6, Lopressor 25mg Q12 GI Elevated LFTs ( trending down) -Hepatitis profile: Negative. US liver: non-diagnostic study -Tube feeds Jevity 1.5 -On Pepcid 20mg BID -J tube placement in OR this week per gen surgery ID: MRSA, Enterobacter pneumonia MRSA Bacteremia -Antibiotics per ID. On Zyvox, Teflaro and Zosyn. Persistent MRSA and sputum -Monitor for signs of new infections ( Fever, WBC) -ID- Dr. Singleton following. 02/10, 02/15, 02/17 Sputum: MRSA 02/10 BC: NGTD 01/30 MRSA bacteremia Endocrine: Hyperglycemia Medium scale sliding scale insulin dosing Glucose monitoring per ICU protocol DVT GI prophylaxis - Teds SCDs - Subcutaneous heparin - Pepcid Lines: peripheral IV's. Palliative care is following. Patient is slowly making progress, will most likely will need [facility] rehab after recovery. Code status: Alternative code Level 3 Discussed with MEDICAL DIR at bed side (Annie) Sarita Rodriguez MD Feb 25, 2018 07:34
[2018-02-25 07:40] LABS: BICARBONATE 33.2 MEQ/L (21.0-32.0); CREATININE 0.5 MG/DL (0.50-1.00); MAGNESIUM 2.2 MG/DL (1.5-2.5)
[2018-02-25 08:46] LABS: BANDS 2 % (0-6); BASOPHILS 2 % (0-2); LYMPHOCYTES 6 % (9-44); METAMYELOCYTES 1 % (0-1); MONOCYTES 5 % (0-8); NEUTROPHIL # MANUAL DIFF 17.7 TH/MM3 (1.8-7.7); POLYS (SEG NEUTROPHILS) 81 % (16-70)
[2018-02-25] MEDS: ALBUMIN 25% INJ 50 ML IV SCH ×2 (08:50→21:15)
[2018-02-25] MEDS: POTASSIUM CHLORIDE 25 MEQ EFFERVESCENT TAB PO SCH (08:52)
[2018-02-25] MEDS: FAMOTIDINE 20 MG TAB PO SCH ×2 (08:53→20:12)
[2018-02-25] MEDS: DOCUSATE SODIUM 50 MG/SENNA 8.6 MG TAB PO SCH ×2 (08:53→20:12)
[2018-02-25] MEDS: ASPIRIN 81 MG CHEW TAB CHEW SCH (08:53)
[2018-02-25] MEDS: SODIUM CHLORIDE 0.9% FLUSH 10 ML FLUSH IV FLUSH SCH ×2 (08:56→21:00)
[2018-02-25] MEDS: cloNIDine HCL 0.1 MG TAB PO SCH ×3 (09:00→21:15)
[2018-02-25] MEDS: DEXMEDETOMIDINE INJ 200 MCG in SODIUM CHLORIDE 0.9% INJ 50 ML IV PRN ×4 (09:01→20:02)
[2018-02-25] MEDS: hydrALAZINE HCL 20 MG/ML VIAL IV PUSH PRN (10:44)
[2018-02-25] MEDS: fentaNYL 100 MCG/HR PATCH T-DERMAL SCH (10:44)
[2018-02-25] MEDS: CHLORHEXIDINE 0.12% (ORAL KIT) 15 ML CUP MT SCH ×2 (10:46→20:01)
--- NOTE | 2018-02-25 11:38 | HHI.HCPN ---
Reason for visit a. To assist with evaluation and management of symptoms including: dyspnea; encephalopathy, pain b. To assist medical decision maker(s) with: better understanding of current medical conditions; weighing benefits/burdens of medical treatment options; making medical treatment decisions. . Subjective/Interval History Palliative care follow-up for further clarifications of goals of care, medical update, emotional support. Patient seen and medical ICU s/p tracheostomy placement 02/18/17. Ongoing CPAP trial during my visit, 45 % FiO2. Chest x-ray today revealing stable lungs compared with prior studies on 02/24. Remains with bilateral chest tubes 4. Patient remains encephalopathic, eyes open but not tracking or following any commands. MRI of brain 02/24 negative for acute process. EEG 02/24 revealing moderate to severe encephalopathy. Propofol and fentanyl infusions were discontinued this morning. Patient placed on Precedex and clonidine to facilitate more aggressive spontaneous breathing trials. Patient tolerating tube feedings via NG, currently 60 ml/hr. J-tube placement on hold at this time as per family's request, surgery Dr. Nj following. Patient appeared tired during my visit. Daughter Alona and sister Kaye at bedside. Daughter Zenobia currently in [place], older sister AUSTIN is is scheduled to return to [facility]. Medical update provided to family. Reviewed current management and recommendations. Reviewed that LTAC is to evaluate patient, PT currently following. Goal of therapy as per family is to allow a few more days for clinical improvement. Family verbalized understanding that patient remains critically ill with high risk of complications, further decline and . Family verbalizing concerns of patient 's persistent encephalopathy and long-term recovery potential. Reviewed that LTAC recommendations are still pending. Family receptive to palliative care follow-ups. . Family/friend interactions See interval note. . Advance Directives Living Will: Never completed Health Care Surrogate: Never completed Durable Power of Machine Cloth Examiner: Never completed Advance Directive Specifics Date completed: Patient has never completed an advanced directive. . Health Care Surrogate(s): There is no written designation of healthcare surrogate. . Documented care wishes: There is no written documentation of healthcare goals/preferences. . Significant change in goals: Continue aggressive management short of no CPR or defibrillation. . Objective Vital Signs Date Time Temp Pulse Resp B/P (MAP) Pulse Ox O2 Delivery O2 Flow Rate FiO2 02/25/18 10:00 89 02/25/18 08:00 97.6 90 26 177/79 (111) 94 02/25/18 08:00 45 02/25/18 08:00 90 02/25/18 07:50 94 45 02/25/18 07:40 45 02/25/18 07:00 50 02/25/18 06:00 86 02/25/18 04:11 94 55 02/25/18 04:00 50 02/25/18 04:00 79 02/25/18 04:00 97.7 79 19 161/72 (101) 96 02/25/18 03:12 21 02/25/18 02:00 82 02/25/18 01:14 98 50 02/25/18 00:00 50 02/25/18 00:00 100 02/25/18 00:00 98.1 100 23 166/71 (102) 98 02/24/18 22:15 95 50 02/24/18 22:00 101 02/24/18 20:06 97 50 02/24/18 20:00 91 02/24/18 20:00 98.4 91 21 172/78 (109) 97 02/24/18 20:00 50 02/24/18 18:00 89 02/24/18 17:00 94 02/24/18 16:00 50 02/24/18 16:00 98.0 86 20 174/77 (109) 100 02/24/18 16:00 86 02/24/18 15:12 100 50 02/24/18 15:00 67 02/24/18 14:00 92 02/24/18 13:05 100 100 02/24/18 13:00 93 02/24/18 12:00 97.7 89 21 168/77 (107) 100 02/24/18 12:00 89 02/24/18 12:00 55 02/24/18 11:29 100 55 Intake & Output 02/25/18 02/25/18 07:00 19:00 Intake Total 496 ml 842.4 ml Output Total 2300 ml Balance 496 ml -1457.6 ml IV Total 496 ml 239.4 ml Tube Feeding 543 ml Other 60 ml Output Urine Total 2300 ml Chest Tube Drainage Total 0 ml # Bowel Movements 1 Physical Exam CONSTITUTIONAL/GENERAL: This is an obese patient in the medical intensive care unit bed. Appears tired during my visit. TUBES/LINES/DRAINS: Tracheostomy; right subclavian central line; bilateral chest tubes x2; peripheral IV; sequential compressive devices. NG tube. SKIN: Pale. No jaundice, rashes. Ecchymoses on upper extremities. No wounds seen anteriorly. Skin temperature appropriate. Not diaphoretic. EYES: Pupils equal and round. Unable to evaluate extraocular movements. No scleral icterus. No injection or drainage. ENT: Unable to evaluate hearing secondary to clinical condition. Nose without bleeding or purulent drainage. Moist oral mucosa. NECK: Tracheostomy midline. CARDIOVASCULAR: Regular rate/rhythm without murmurs, gallops, or rubs. RESPIRATORY/CHEST: Bilateral chest tubes. Symmetric respirations on vent. Decreased air movement at bases. Scattered rhonchi bilaterally L > R. Abdominal breathing on CPAP noted. GASTROINTESTINAL: Abdomen obese, large, soft. Active bowel sounds. GENITOURINARY: Without palpable bladder distension. Alexandre catheter in place with large amount of output. MUSCULOSKELETAL: Extremities without clubbing, cyanosis. Widespread edema to all 4 extremities. No mottling. NEUROLOGICAL: Briefly opening eyes to tactile stimuli. Not tracking or following commands. PSYCHIATRIC: Appears calm. . Diagnostic Tests Laboratory Laboratory Tests Test 02/22/18 14:19 02/22/18 23:25 02/23/18 01:54 02/23/18 15:34 Body Fluid Amylase Source PLEURAL Body Fluid Amylase 32 U/L Pleural Fluid pH 8.5 Pleural Fluid WBC 34 /MM3 (0-10) 101 /MM3 (0-10) Pleural Fluid RBC 535 /MM3 (0-0) 115 /MM3 (0-0) Pleural Fluid Neutrophils 72 % 92 % Pleural Fluid Lymphocytes 28 % 4 % Pleural Fluid Comment Pleural Fluid Total Protein 3.7 GM/DL Pleural Fluid LDH 1481 U/L Pleural Fluid Glucose 107 MG/DL Pleural Fluid Monocytes 4 % Potassium Level 4.0 MEQ/L (3.5-5.1) 3.9 MEQ/L (3.5-5.1) Blood Urea Nitrogen 10 MG/DL (7-18) Creatinine 0.66 MG/DL (0.50-1.00) Random Glucose 158 MG/DL (74-106) Total Protein 8.0 GM/DL (6.4-8.2) Albumin 1.7 GM/DL (3.4-5.0) Calcium Level 8.6 MG/DL (8.5-10.1) Phosphorus Level 3.4 MG/DL (2.5-4.9) Magnesium Level 2.2 MG/DL (1.5-2.5) Alkaline Phosphatase 446 U/L (45-117) Aspartate Amino Transf (AST/SGOT) 76 U/L (15-37) Alanine Aminotransferase (ALT/SGPT) 40 U/L (10-53) Total Bilirubin 0.5 MG/DL (0.2-1.0) Sodium Level 139 MEQ/L (136-145) Chloride Level 100 MEQ/L (98-107) Carbon Dioxide Level 36.7 MEQ/L (21.0-32.0) Anion Gap 2 MEQ/L (5-15) Estimat Glomerular Filtration Rate 91 ML/MIN (>89) Test 02/24/18 05:15 02/24/18 13:25 02/25/18 06:13 White Blood Count 20.0 TH/MM3 (4.0-11.0) 21.1 TH/MM3 (4.0-11.0) Red Blood Count 2.95 MIL/MM3 (4.00-5.30) 2.92 MIL/MM3 (4.00-5.30) Hemoglobin 8.2 GM/DL (11.6-15.3) 7.9 GM/DL (11.6-15.3) Hematocrit 25.9 % (35.0-46.0) 25.0 % (35.0-46.0) Mean Corpuscular Volume 87.8 FL (80.0-100.0) 85.4 FL (80.0-100.0) Mean Corpuscular Hemoglobin 27.8 PG (27.0-34.0) 27.2 PG (27.0-34.0) Mean Corpuscular Hemoglobin Concent 31.6 % (32.0-36.0) 31.8 % (32.0-36.0) Red Cell Distribution Width 16.5 % (11.6-17.2) 16.0 % (11.6-17.2) Platelet Count 420 TH/MM3 (150-450) 537 TH/MM3 (150-450) Mean Platelet Volume 8.5 FL (7.0-11.0) 7.9 FL (7.0-11.0) Neutrophils (%) (Auto) 79.7 % (16.0-70.0) 86.8 % (16.0-70.0) Lymphocytes (%) (Auto) 7.6 % (9.0-44.0) 6.1 % (9.0-44.0) Monocytes (%) (Auto) 5.8 % (0.0-8.0) 4.6 % (0.0-8.0) Eosinophils (%) (Auto) 5.7 % (0.0-4.0) 2.1 % (0.0-4.0) Basophils (%) (Auto) 1.2 % (0.0-2.0) 0.4 % (0.0-2.0) Neutrophils # (Auto) 16.0 TH/MM3 (1.8-7.7) 18.3 TH/MM3 (1.8-7.7) Lymphocytes # (Auto) 1.5 TH/MM3 (1.0-4.8) 1.3 TH/MM3 (1.0-4.8) Monocytes # (Auto) 1.2 TH/MM3 (0-0.9) 1.0 TH/MM3 (0-0.9) Eosinophils # (Auto) 1.1 TH/MM3 (0-0.4) 0.5 TH/MM3 (0-0.4) Basophils # (Auto) 0.2 TH/MM3 (0-0.2) 0.1 TH/MM3 (0-0.2) CBC Comment AUTO DIFF AUTO DIFF Differential Total Cells Counted 100 100 Neutrophils % (Manual) 80 % (16-70) 81 % (16-70) Lymphocytes % 4 % (9-44) 6 % (9-44) Monocytes % 3 % (0-8) 5 % (0-8) Eosinophils % 9 % (0-4) 3 % (0-4) Basophils % 1 % (0-2) 2 % (0-2) Neutrophils # (Manual) 16.6 TH/MM3 (1.8-7.7) 17.7 TH/MM3 (1.8-7.7) Metamyelocytes 1 % (0-1) 1 % (0-1) Myelocytes 2 % (0-0) Differential Comment FINAL DIFF MANUAL FINAL DIFF MANUAL Platelet Estimate HIGH (NORMAL) HIGH (NORMAL) Platelet Morphology Comment NORMAL (NORMAL) NORMAL (NORMAL) Red Cell Morphology Comment NORMAL (NORMAL) Blood Urea Nitrogen 12 MG/DL (7-18) 13 MG/DL (7-18) Creatinine 0.62 MG/DL (0.50-1.00) 0.50 MG/DL (0.50-1.00) Random Glucose 181 MG/DL (74-106) 163 MG/DL (74-106) Total Protein 8.2 GM/DL (6.4-8.2) Albumin 1.9 GM/DL (3.4-5.0) Calcium Level 8.7 MG/DL (8.5-10.1) 9.0 MG/DL (8.5-10.1) Phosphorus Level 3.5 MG/DL (2.5-4.9) 4.5 MG/DL (2.5-4.9) Magnesium Level 2.1 MG/DL (1.5-2.5) 2.2 MG/DL (1.5-2.5) Alkaline Phosphatase 402 U/L (45-117) Aspartate Amino Transf (AST/SGOT) 54 U/L (15-37) Alanine Aminotransferase (ALT/SGPT) 40 U/L (10-53) Total Bilirubin 0.4 MG/DL (0.2-1.0) Sodium Level 139 MEQ/L (136-145) 139 MEQ/L (136-145) Potassium Level 3.8 MEQ/L (3.5-5.1) 3.5 MEQ/L (3.5-5.1) Chloride Level 97 MEQ/L (98-107) 95 MEQ/L (98-107) Carbon Dioxide Level 33.8 MEQ/L (21.0-32.0) 33.2 MEQ/L (21.0-32.0) Anion Gap 8 MEQ/L (5-15) 11 MEQ/L (5-15) Estimat Glomerular Filtration Rate 98 ML/MIN (>89) 125 ML/MIN (>89) Band Neutrophils % 2 % (0-6) Hematology Comments Result Diagram: 02/25/18 0613 02/25/18 0613 Microbiology Microbiology Date/Time Source Procedure Growth Status 02/22/18 14:19 Fluid Pleural Fluid Fungal Smear - Final NO FUNGAL ELEMENTS SEEN. Resulted 02/22/18 14:19 Fluid Pleural Fluid Fungal Culture Pending Resulted 02/22/18 14:19 Fluid Pleural Fluid Acid Fast Stain - Final NO ACID FAST BACILLI SEEN Resulted 02/22/18 14:19 Fluid Pleural Fluid Mycobacterial Culture Pending Resulted 02/22/18 14:19 Fluid Pleural Fluid Gram Stain - Final Resulted 02/22/18 14:19 Fluid Pleural Fluid Body Fluid Culture - Preliminary NO GROWTH IN 48 HOURS. Resulted Imaging Last 48 hours Impressions Chest X-Ray 02/25/18 0600 Signed Impressions: Service Date/Time: Sunday, February 25, 2018 04:01 - CONCLUSION: 1. Stable exam compared with February 24. Bilateral chest tubes without pneumothorax. Everett Ng MD Chest X-Ray 02/24/18 0600 Signed Impressions: Service Date/Time: Saturday, February 24, 2018 05:38 - CONCLUSION: 1. No pneumothorax. 2. Unchanged bilateral pulmonary infiltrates and small left effusion. Ilya Cifuentes Jr., MD Brain MRI 02/24/18 0000 Signed Impressions: Service Date/Time: Saturday, February 24, 2018 12:42 - CONCLUSION: Negative exam with no evidence of hemorrhage, mass infarction. Kevin Tello MD Procedures * 01/31/18 -Intubation/mechanical ventilation right subclavian * Central line placement * Bilateral chest tube placement * Transesophageal echo * 02/18/18 -tracheostomy . Assessment and Plan Disease Oriented Problem List: (1) PNA (pneumonia) Comment: MRSA + Enterobacter (2) Respiratory failure (3) ARDS (adult respiratory distress syndrome) (4) Sepsis Comment: MRSA (5) Anemia (6) Hypoalbuminemia (7) Bilateral pneumothoraces Comment: Recurrent and multiple pneumothoraces . (8) ARF (acute renal failure) Comment: REsolving (9) Encephalopathy Symptom Scale: (1) Pain 0-10 Scale: Unable to quantify Comment: No known prehospitalization pain syndromes. Current sources of discomfort might include orotracheal and orogastric intubations; vascular access lines; restraints; Alexandre catheter; chest tubes; prolonged bedbound status. (2) Dyspnea 0-10 Scale: Unable to quantify Comment: Patient with underlying pneumonia and bilateral pneumothoraces. Dyspnea currently managed with ventilatory support. (3) Encephalopathy 0-10 Scale: Unable to quantify Pertinent Non-Medical Issues Psychosocial: Has a male partner . She normally lives with him in a manufactured home. He is a smoker. Her 2 daughters are now down from [place] to help. Spiritual: Patient is [employer]. Investigative Reporter visits would be appreciated. Legal: There are no advance directives. Without written designation of a healthcare surrogate, proxy decision making would fall to both adult daughters. Ethical issues impacting care: Patient is currently incapacitated to make her own medical decisions. It is unclear if/when she will become capacitated to do so. . Important Contacts Alona Caballero (daughter and co-health care proxy) [phone] Zenobia Clay (daughter and co-health care proxy) [phone] Brett Mackay (boyfriend -- NO DECISION MAKING RIGHTS unless there is written documentation saying otherwise) [phone] . Prognosis On the one hand, other than her morbid obesity, this patient has very few health problems and has managed to stay out of the hospital. Ordinarily, we would expect her to respond well to treatment and improve. This patient declined incredibly quickly and has very severe respiratory disease in spite of the fact that she has no known underlying chronic respiratory illness.She has multiple pneumothoraces. She has developed Enterobacter pneumonia on top of her MRSA pneumonia. Patient ventilator dependent at this time status post tracheostomy. Appears not to be responding to medical treatment. Overall prognosis is guarded, remains at high risk of further decompensation, decline and . . Code Status: Alternative Code Plan == Code Status: ALT CODE (no defibrillation; no chest compression) == Medical Decision Making: Patient is currently incapacitated to make her own healthcare decisions. It is unclear if/when she will recover capacity to do so. Since there is no written designation of healthcare surrogacy that we are aware of, proxy decision making would fall to her 2 adult children -- Alona Caballero and Zenobia Clay. They both have accepted this role. == Goals of medical treatment: Goals of treatment remain aggressive short of no chest compressions or defibrillation. Patient's daughters acting as healthcare proxy decision makers have elected to continue aggressive management ; however, requesting to put on hold J-tube placement at this time. Reviewed likely illness trajectory with anticipated prolonged hospitalization and rehab if patient survives this hospitalization. Reviewed that patient remains at a very high risk of further complications, continued decline and . Family voicing concerns regarding patient's long-term rehabilitation potential, pending LTAC evaluation. == Symptoms: * Dyspnea: Patient with underlying pneumonia and bilateral pneumothoraces. Dyspnea currently managed with ventilatory support. Bilateral chest tubes x2 in place. Patient status post tracheostomy on 02/18, Ongoing CPAP trials. * Pain: No known pre-hospitalization pain syndromes. Current sources of discomfort might include orotracheal and orogastric intubations; vascular access lines; restraints; Alexandre catheter; chest tubes; prolonged bedbound status. Fentanyl drip has been discontinued, currently on oxycodone 5 mg around -the-clock. Fentanyl 100mcg patch added today. Palliative care recommends switching oxycodone 5 mg from around the clock to PRN given addition of Fentanyl patch today. Fentanyl 50mcg q1hr AND Morphine 2mg q2hr PRN available. None given in the past 24 hours. Palliative care recommends discontinuation of Fentanyl 50mcg IV PRN and keeping Morphine 2mg IV PRN (only one IV opioid recommended at a time). * Encephalopathy: Persistent encephalopathy probably secondary to her sepsis/ critical illness and sedatives. Brain MRI negative for acute process. EEG revealing moderate to severe encephalopathy. Propofol infusion discontinued this morning, currently on Precedex. If no improvement within the next 24-48 hours, palliative care recommends neurology consultation. == Case discussed with Elpidio Begum from [facility] and bedside [facility]. == Palliative care will continue to follow up as needed to assist with symptom management and to further clarify goals of medical treatment as the clinical course evolves. Family receptive to this. . Time Spent Total Floor Time (mins): 34 (Total time to include review a summarization of medical records since last visit, physical exam, case discussion with bedside RN Alona and Elpidio from [facility], goals of therapy conversation with family.) >50% Counseling/Coord of Care: Yes Attestation To help prompt me to consider important information that might be impacting today's encounter and assessment, information from prior notes written by myself or my colleagues may have been "brought forward" into today's note. My signature on this note, however, is an attestation that I personally performed the exam, history, and/or decision-making noted today, and, unless otherwise indicated, the interactions with patient, family, and staff as well as the review of records all occurred today. I also attest that the listed assessment and stated plan reflect my best clinical judgment today based on the combination of historical information, prior notes, and today's exam/ interactions. When time spent is documented, it refers only to time spent today by the signer, or if indicated, combined time spent today by collaborating physician/nurse practitioner. Myra Delatorre Feb 25, 2018 11:38
[2018-02-25] MEDS: LORazepam 2 MG/ML VIAL IV PUSH PRN (15:55)
--- NOTE | 2018-02-25 18:39 | HHI.IDPN ---
Subjective Subjective Remarks remains on vent, up to 45% FiO2, PEEP 8 no fever comnt to have intermittently low BP not on pressors remains with CTs x 4, no airleak, no drainage sp trach Not responding Antibiotics teflaro Zyvox IV Lines Line sites with no e.o infection Past Medical History Gastric bypass Tonsillectomy Allergies: Coded Allergies: No Known Allergies (Unverified , 01/30/18) Objective . Vital Signs Date Time Temp Pulse Resp B/P (MAP) Pulse Ox O2 Delivery O2 Flow Rate FiO2 02/25/18 17:00 69 27 100/57 (71) 96 02/25/18 16:30 67 28 102/54 (70) 98 02/25/18 16:26 66 23 83/49 (60) 93 02/25/18 16:01 69 23 83/45 (58) 92 02/25/18 16:00 45 02/25/18 16:00 97.9 70 23 92 02/25/18 16:00 70 23 92 02/25/18 16:00 70 02/25/18 15:40 45 02/25/18 15:40 92 45 02/25/18 14:00 67 02/25/18 12:00 45 02/25/18 12:00 87 02/25/18 12:00 96.8 87 25 144/66 (92) 92 02/25/18 12:00 96.8 02/25/18 11:46 92 45 02/25/18 10:00 89 02/25/18 08:00 97.6 90 26 177/79 (111) 94 02/25/18 08:00 45 02/25/18 08:00 90 02/25/18 07:50 94 45 02/25/18 07:40 45 02/25/18 07:40 45 02/25/18 07:00 50 02/25/18 06:00 86 02/25/18 04:11 94 55 02/25/18 04:00 50 02/25/18 04:00 79 02/25/18 04:00 97.7 79 19 161/72 (101) 96 02/25/18 03:12 21 02/25/18 02:00 82 02/25/18 01:14 98 50 02/25/18 00:00 50 02/25/18 00:00 100 02/25/18 00:00 98.1 100 23 166/71 (102) 98 02/24/18 22:15 95 50 02/24/18 22:00 101 02/24/18 20:06 97 50 02/24/18 20:00 91 02/24/18 20:00 98.4 91 21 172/78 (109) 97 02/24/18 20:00 50 02/25/18 02/25/18 02/26/18 15:00 23:00 07:00 Intake Total 1194.4 ml 152 ml Output Total 2300 ml Balance -1105.6 ml 152 ml IV Total 591.4 ml 152 ml Tube Feeding 543 ml Other 60 ml Output Urine Total 2300 ml Chest Tube Drainage Total 0 ml # Bowel Movements 2 . Laboratory Tests Test 02/24/18 05:15 02/25/18 06:13 White Blood Count 20.0 TH/MM3 21.1 TH/MM3 Red Blood Count 2.95 MIL/MM3 2.92 MIL/MM3 Hemoglobin 8.2 GM/DL 7.9 GM/DL Hematocrit 25.9 % 25.0 % Mean Corpuscular Volume 87.8 FL 85.4 FL Mean Corpuscular Hemoglobin 27.8 PG 27.2 PG Mean Corpuscular Hemoglobin Concent 31.6 % 31.8 % Red Cell Distribution Width 16.5 % 16.0 % Platelet Count 420 TH/MM3 537 TH/MM3 Mean Platelet Volume 8.5 FL 7.9 FL Neutrophils (%) (Auto) 79.7 % 86.8 % Lymphocytes (%) (Auto) 7.6 % 6.1 % Monocytes (%) (Auto) 5.8 % 4.6 % Eosinophils (%) (Auto) 5.7 % 2.1 % Basophils (%) (Auto) 1.2 % 0.4 % Neutrophils # (Auto) 16.0 TH/MM3 18.3 TH/MM3 Lymphocytes # (Auto) 1.5 TH/MM3 1.3 TH/MM3 Monocytes # (Auto) 1.2 TH/MM3 1.0 TH/MM3 Eosinophils # (Auto) 1.1 TH/MM3 0.5 TH/MM3 Basophils # (Auto) 0.2 TH/MM3 0.1 TH/MM3 CBC Comment AUTO DIFF AUTO DIFF Differential Total Cells Counted 100 100 Neutrophils % (Manual) 80 % 81 % Lymphocytes % 4 % 6 % Monocytes % 3 % 5 % Eosinophils % 9 % 3 % Basophils % 1 % 2 % Neutrophils # (Manual) 16.6 TH/MM3 17.7 TH/MM3 Metamyelocytes 1 % 1 % Myelocytes 2 % Differential Comment FINAL DIFF MANUAL FINAL DIFF MANUAL Platelet Estimate HIGH HIGH Platelet Morphology Comment NORMAL NORMAL Red Cell Morphology Comment NORMAL Band Neutrophils % 2 % Hematology Comments Laboratory Tests Test 02/24/18 05:15 02/24/18 13:25 02/25/18 06:13 Blood Urea Nitrogen 12 MG/DL 13 MG/DL Creatinine 0.62 MG/DL 0.50 MG/DL Random Glucose 181 MG/DL 163 MG/DL Total Protein 8.2 GM/DL Albumin 1.9 GM/DL Calcium Level 8.7 MG/DL 9.0 MG/DL Phosphorus Level 3.5 MG/DL 4.5 MG/DL Magnesium Level 2.1 MG/DL 2.2 MG/DL Alkaline Phosphatase 402 U/L Aspartate Amino Transf (AST/SGOT) 54 U/L Alanine Aminotransferase (ALT/SGPT) 40 U/L Total Bilirubin 0.4 MG/DL Sodium Level 139 MEQ/L 139 MEQ/L Potassium Level 3.8 MEQ/L 3.5 MEQ/L Chloride Level 97 MEQ/L 95 MEQ/L Carbon Dioxide Level 33.8 MEQ/L 33.2 MEQ/L Anion Gap 8 MEQ/L 11 MEQ/L Estimat Glomerular Filtration Rate 98 ML/MIN 125 ML/MIN Imaging Last Impressions Chest X-Ray 02/25/18 0600 Signed Impressions: Service Date/Time: Sunday, February 25, 2018 04:01 - CONCLUSION: 1. Stable exam compared with February 24. Bilateral chest tubes without pneumothorax. Everett Ng MD Brain MRI 02/24/18 0000 Signed Impressions: Service Date/Time: Saturday, February 24, 2018 12:42 - CONCLUSION: Negative exam with no evidence of hemorrhage, mass infarction. Kevin Tello MD Head CT 02/21/18 0000 Signed Impressions: Service Date/Time: February 14:24 - CONCLUSION: 1. Bilateral mastoiditis. 2. Otherwise negative. No acute intracranial process to explain current clinical symptoms Gino Hernandez MD Chest Tube Insertion 02/21/18 0000 Signed Impressions: Service Date/Time: February 14:36 - CONCLUSION: Uncomplicated chest tube placement as above. Karri Muhammad MD Chest CT 02/19/18 0000 Signed Impressions: Service Date/Time: Monday, February 19, 2018 13:36 - CONCLUSION: 1. Multilobar consolidation with multiple cavities, not significantly changed. Differential possibilities are again noted to include septic emboli, TB and fungal etiologies including necrotizing process and autoimmune process such as Britton's. 2. Small right anterobasilar pneumothorax. Right-sided chest tube likely nonfunctional. 3. 2 left-sided chest tubes with loculated left pleural effusion, slightly more prominent on current study. Karri Muhammad MD Abdomen X-Ray 02/18/18 0000 Signed Impressions: Service Date/Time: Sunday, February 18, 2018 15:47 - CONCLUSION: 1. Suction type NGT in the region of the GE junction. Romeo Espinoza MD Liver Ultrasound 02/11/18 0000 Signed Impressions: Service Date/Time: Sunday, February 11, 2018 09:34 - CONCLUSION: Nondiagnostic examination CT scan is recommended for further evaluation if clinically indicated. To Vaughn MD Neck CT 02/10/18 0000 Signed Impressions: Service Date/Time: Saturday, February 10, 2018 14:57 - CONCLUSION: 1. Extensive subcutaneous edema in the neck which has dissected cephalad from the chest and is worse on the left side. 2. Support apparatus as above. See chest CT report for evaluation of lungs. 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 No adenopathy. Everett Ng MD Physical Exam CONSTITUTIONAL/GENERAL: On the vent SKIN: No jaundice, rashes, or lesions. Ecchymoses on upper extremities. Skin temperature appropriate. generalized edema previous Sq emphysema resolved HEAD: Atraumatic. Normocephalic. EYES: Pupils equal and round and reactive. No scleral icterus. No injection or drainage. ENT: No nasal discharge, orally intubated NECK: Supple, nontender. CARDIOVASCULAR: Regular rate and rhythm without murmurs, gallops, or rubs. RESPIRATORY/CHEST: Symmetric, unlabored respirations. Rhonchi b/l. CTx2 on R and CT x 2 on the L GASTROINTESTINAL: Abdomen soft, nondistended. Obese. No reaction to palpation , not guarding. GENITOURINARY: Without palpable bladder distension. Alexandre catheter in place. MUSCULOSKELETAL: Extremities without clubbing, cyanosis, + 3 diffuse tight edema. . NEUROLOGICAL: unresponsive does not track, eyes closed not following commands PSYCHIATRIC: unable to assess LINE: no evidence of infection Assessment & Plan Remarks IMPRESSION MRSA PNA, necrotizing Multiple b/l pneumothoraces ? postinfluenza PNA Loculated hydropneumothorax: ? empyema Acute VDRF failure to weaning sp trach High grade , sustained MRSA bacteremia GRANT negative Severe leukocytosis and bandemia New PNA, Enterobacter (panS) along with MRSA Empyema and multiple cavitary lesions - essentaially necrotizing PNA - no e/o endocarditis - sp multiple CTs placement MS change ? medication - PLAN dc Zyvox, teflaro start vancomycin Carlene Singleton MD Feb 25, 2018 18:39
[2018-02-25] MEDS ORDERED: Vancomycin Consult Pharmacy 1 EA OTHER SCH (18:45)
[2018-02-25] MEDS ORDERED: VANCOMYCIN INJ 2,500 MG in SODIUM CHLORID 0.9% 500 ML INJ 500 ML IV ONE (20:00)
--- NOTE | 2018-02-25 21:14 | HHI.PR ---
Subjective Remarks Patient remains sedated with Diprivan and Fentanyl infusions. On PRVC with PEEP: 8, FIO2:60%. Afebrile. Tolerated CPAp 8 hrs Objective Vital Signs Vital Signs Date Time Temp Pulse Resp B/P (MAP) Pulse Ox O2 Delivery O2 Flow Rate FiO2 02/25/18 18:00 74 02/25/18 17:00 69 27 100/57 (71) 96 02/25/18 16:30 67 28 102/54 (70) 98 02/25/18 16:26 66 23 83/49 (60) 93 02/25/18 16:01 69 23 83/45 (58) 92 02/25/18 16:00 45 02/25/18 16:00 97.9 70 23 92 02/25/18 16:00 70 23 92 02/25/18 16:00 70 02/25/18 15:40 45 02/25/18 15:40 92 45 02/25/18 14:00 67 02/25/18 12:00 45 02/25/18 12:00 87 02/25/18 12:00 96.8 87 25 144/66 (92) 92 02/25/18 12:00 96.8 02/25/18 11:46 92 45 02/25/18 10:00 89 02/25/18 08:00 97.6 90 26 177/79 (111) 94 02/25/18 08:00 45 02/25/18 08:00 90 02/25/18 07:50 94 45 02/25/18 07:40 45 02/25/18 07:40 45 02/25/18 07:00 50 02/25/18 06:00 86 02/25/18 04:11 94 55 02/25/18 04:00 50 02/25/18 04:00 79 02/25/18 04:00 97.7 79 19 161/72 (101) 96 02/25/18 03:12 21 02/25/18 02:00 82 02/25/18 01:14 98 50 02/25/18 00:00 50 02/25/18 00:00 100 02/25/18 00:00 98.1 100 23 166/71 (102) 98 02/24/18 22:15 95 50 02/24/18 22:00 101 I/O 4/02/24/18 02/24/18 02/25/18 02/25/18 02/25/18 07:00 15:00 23:00 07:00 15:00 23:00 Intake Total 1516 ml 700 ml 703 ml 496 ml 1194.4 ml 785 ml Output Total 2805 ml 2800 ml 2300 ml 1500 ml Balance -1289 ml 700 ml -2097 ml 496 ml -1105.6 ml -715 ml IV Total 747 ml 700 ml 496 ml 591.4 ml 152 ml Tube Feeding 649 ml 583 ml 543 ml 573 ml Other 120 ml 120 ml 60 ml 60 ml Output Urine Total 2800 ml 2800 ml 2300 ml 1500 ml Chest Tube Drainage Total 5 ml 0 ml 0 ml # Bowel Movements 2 1 Result Diagram: 02/25/1861202/25/18612 Objective Remarks GENERAL: WBWN Female, on Vent, sedated SKIN: Warm and dry. HEAD: Normocephalic. EYES: No scleral icterus. No injection or drainage. NECK: Supple, trachea midline. No JVD or lymphadenopathy. CARDIOVASCULAR: Regular rate and rhythm without murmurs, gallops, or rubs. RESPIRATORY: Breath sounds equal bilaterally. No accessory muscle use. [address] SQ Emphysema. GASTROINTESTINAL: Abdomen soft, non-tender, nondistended. MUSCULOSKELETAL: No cyanosis, or edema. Neuro: Sedated, A/P Assessment and Plan Acute hypoxemic respiratory failure s/p trach MRSA pneumonia, with multiple cavitations and consolidation s/p Moderate sized left pleural effusion, ? empyema COPD Bilateral pneumothorax, status post large bore chest tube Post Influenza pneumonia Leukocytosis Anemia PLAN: Cont Vent support keep sats >92% On PRVC RR 16, TV 600, PEEP:8 FIO2: 60%. Decrease FIO2: 50% as bernarda Bronchodilators Pulm toilet, trach care Monitor CT output. CXR today showed no evidence of PTX, b/l pulm infiltrates On Fentanyl and Diprivan dip for sedation. Daily sedation vacation Abx per ID ( On Zyvox) monitor for signs of infections ( Fever, WBC) Continue with tube feeds-On Jevity 1.5@60ml/hr GI/DVT prophylaxis Palliative care is following [facility],Dru Izquierdo MD Feb 25, 2018 21:14
[2018-02-26] VITALS (23 sets, daily range): BP systolic 101–127; BP diastolic 53–79; PULSE 77–107; RESP 24–35; TEMP 98.4–99.1; O2SAT 92–100
[2018-02-26] MEDS: DILTIAZEM HCL 30 MG TAB PO SCH ×5 (00:31→23:31)
[2018-02-26] MEDS: INSULIN ASPART SUPPLEMENTAL SCALE SQ SCH ×5 (00:31→23:44)
[2018-02-26] MEDS: METOPROLOL TARTRATE 25 MG TAB PO SCH ×2 (01:42→13:00)
[2018-02-26] MEDS: DEXMEDETOMIDINE INJ 200 MCG in SODIUM CHLORIDE 0.9% INJ 50 ML IV PRN ×10 (03:13→21:22)
[2018-02-26] MEDS: FUROSEMIDE 40 MG/4 ML VIAL IV PUSH SCH ×4 (03:16→21:21)
[2018-02-26] MEDS: oxyCODONE HCL ORAL CONC 5 MG/0.25 ML SYRINGE PO SCH ×4 (03:17→21:21)
[2018-02-26] MEDS: CHLORHEXIDINE GLUCONATE 2 % 1 PACK (2 CLOTHS) TOP SCH (04:00)
--- NOTE | 2018-02-26 04:26 | RADRPT ---
EXAM DATE/TIME: 02/26/2018 03:24 [facility] COMPARISON: CHEST SINGLE AP, February 25, 2018, 4:01. INDICATIONS : Short of breath. MEDICAL HISTORY : Sepsis. SURGICAL HISTORY : Gastric bypass. Tonsillectomy. ENCOUNTER: Subsequent ACUITY: 1 month PAIN SCORE: 0/10 LOCATION: Bilateral chest FINDINGS: A single view of the chest demonstrates tracheostomy in good position. NG enters stomach. 2 right-jose a ed chest tubes present with small right pneumothorax. 2 left chest tubes also present without pneumot horax. Loculated pleural fluid on the left is stable. Patchy bilateral airspace consolidation is also relatively stable.. CONCLUSION: 1. 2 chest tubes present bilaterally with a small right apical pneumothorax present. Air space diseas e and loculated fluid on the left are stable. Everett Ng MD on February 26, 2018 at 4:23 Board Certified Radiologist. This report was verified electronically.
[2018-02-26] MEDS: RESP: ALBUTEROL 2.5 MG/IPRATROPIUM 0.5 MG NEB (SCH) NEB ×4 (04:52→21:30)
[2018-02-26] MEDS: LORazepam 2 MG/ML VIAL IV PUSH PRN ×2 (05:10→09:23)
[2018-02-26 05:11] LABS: AUTOMATED NEUTROPHIL # 16.3 TH/MM3 (1.8-7.7); BASOPHIL # 0.1 TH/MM3 (0-0.2); BASOPHIL % 0.5 % (0.0-2.0); EOSINOPHIL # 0.3 TH/MM3 (0-0.4); EOSINOPHIL % 1.6 % (0.0-4.0); LYMPHOCYTE # 1.3 TH/MM3 (1.0-4.8); MEAN CELL VOLUME 86.4 FL (80.0-100.0); MEAN CORPUSCULAR HEMOGLOBIN 27.6 PG (27.0-34.0); MEAN PLATELET VOLUME 7.8 FL (7.0-11.0); MONO % 5.4 % (0.0-8.0); NEUT % 85.5 % (16.0-70.0); PLATELET COUNT 462 TH/MM3 (150-450); RED BLOOD COUNT 2.27 MIL/MM3 (4.00-5.30); RED CELL DISTRIBUTION WIDTH 16.2 % (11.6-17.2); WHITE BLOOD COUNT 19.1 TH/MM3 (4.0-11.0)
[2018-02-26 05:22] LABS: HEMOGLOBIN 6.3 GM/DL (11.6-15.3)
[2018-02-26 05:23] LABS: HEMATOCRIT 19.6 % (35.0-46.0)
[2018-02-26 05:28] LABS: ALBUMIN 1.9 GM/DL (3.4-5.0); ALKALINE PHOSPHATASE 290 U/L (45-117); ALT (GPT) 24 U/L (10-53); AST (GOT) 24 U/L (15-37); BICARBONATE 32.4 MEQ/L (21.0-32.0); BLOOD UREA NITROGEN 24 MG/DL (7-18); CALCIUM 8.8 MG/DL (8.5-10.1); CHLORIDE 98 MEQ/L (98-107); CREATININE 0.74 MG/DL (0.50-1.00); GLOMERULAR FILTRATION RATE 80 ML/MIN (>89); GLUCOSE,RANDOM 166 MG/DL (74-106); MAGNESIUM 2.2 MG/DL (1.5-2.5); PHOSPHORUS 2.9 MG/DL (2.5-4.9); SODIUM (NA) 138 MEQ/L (136-145); TOTAL BILIRUBIN ADULT 0.4 MG/DL (0.2-1.0); TOTAL PROTEIN 6.9 GM/DL (6.4-8.2)
[2018-02-26] MEDS: HEPARIN SODIUM - SQ 10,000 UNITS/ML VIAL SQ SCH ×3 (05:44→21:21)
[2018-02-26] MEDS: cloNIDine HCL 0.1 MG TAB PO SCH ×3 (05:44→22:56)
[2018-02-26 06:36] LABS: STOMATOCYTES 1+ (NORMAL)
[2018-02-26] MEDS: POTASSIUM CHLORIDE 25 MEQ EFFERVESCENT TAB PO SCH (08:58)
[2018-02-26] MEDS: CHLORHEXIDINE 0.12% (ORAL KIT) 15 ML CUP MT SCH ×2 (09:00→20:00)
[2018-02-26] MEDS: FAMOTIDINE 20 MG TAB PO SCH ×2 (09:01→21:20)
[2018-02-26] MEDS: DOCUSATE SODIUM 50 MG/SENNA 8.6 MG TAB PO SCH ×2 (09:01→21:20)
[2018-02-26] MEDS: ASPIRIN 81 MG CHEW TAB CHEW SCH (09:01)
[2018-02-26] MEDS: SODIUM CHLORIDE 0.9% FLUSH 10 ML FLUSH IV FLUSH SCH ×2 (09:02→21:22)
[2018-02-26] MEDS: POTASSIUM CHLOR 20 MEQ PREMIX 100 ML IV PRN ×3 (09:02→16:02)
[2018-02-26] MEDS: ALBUMIN 25% INJ 50 ML IV SCH ×2 (09:02→21:20)
[2018-02-26] MEDS: VANCOMYCIN INJ 1,250 MG in SODIUM CHLOR 0.9% 250 ML INJ 250 ML IV SCH (11:48)
--- NOTE | 2018-02-26 14:06 | HHI.CCPN ---
Subjective Remarks/Hospital Course 01/30: 62-year-old female presents for evaluation of increasing shortness of breath and chest pain. She reports 1 week of coughing 3 days of pain in her left chest which radiates to her back, which prompted the visit to the emergency room yesterday. She rates her pain a 6 out of 10. She reports fevers , chills, fatigue, mild nausea. She denies any abdominal pain, vomiting. Patient denies any significant past medical history. Symptom onset was gradual , symptom severity is severe, there are no alleviating factors. Patient states that she has been taking the azithromycin antibiotics that were prescribed to her. She denies any current or historical tobacco use. 01/31: Intubated at 1 AM this morning and placed on mechanical ventilation due to worsening respiratory distress. Currently sedated, orally intubated on mechanical ventilation. 02/01: Remains sedated, orally intubated on mechanical ventilation. Went into A. fib with RVR this morning. Loaded with amiodarone, started on amiodarone drip and given digoxin 0.5 mg IV 02/02: Remains sedated, orally intubated on mechanical ventilation. Right sided pigtail catheter in place with 1+ air leak. Converted to sinus rhythm overnight. Remains on amiodarone gtt. 02/03: Remains sedated, orally intubated on mechanical ventilation. 1+ air leak and right sided pigtail catheter. Tolerating tube feeds. Remains on amiodarone gtt. 02/04: Noted to have pneumothorax on the left side this morning on routine chest x -ray which appeared to be under tension. Right sided pigtail catheter placed by Dr. Peña with reexpansion of lung. Patient remains sedated, orally intubated on mechanical ventilation. 1+ airleak and bilateral chest tubes noted. 02/05: Afebrile. Persistent leukocytosis, bilateral chest tubes continue on wall suction. Chest x-ray pending this a.m.. Patient scheduled for GRANT today, discussed with Dr. Vázquez. Patient continues on amiodarone infusion with sinus rhythm. Postprocedure GRANT,this afternoon, the patient became extremely agitated, noted significant increase in subcu emphysema, peak pressures 50's, O2 saturation significantly decreased to 78-80 %. Stat chest x-ray performed patient was noted to have a significant right pneumothorax. 20 Setswana right chest tube placement emergently, with increase in O2 saturation decrease in peak inspiratory pressures. 02/06: Afebrile. Patient with persistent bilateral pneumothoraces, with diffuse bilateral infiltrates and massive SQ emphysema. O2 requirement significantly increased during the night, PIP 38-44. 28 F chest tubes were placed bilaterally with resolution of left pneumothorax and minimization of right pneumothorax, and improved oxygenation. 02/07: TMax 100.1 Chest tubes remain on suction. Resolution of pneumothoraces, continued extensive SQ emphysema. Persistent leukocytosis noted. FiO2 weaned to 50%. 02/08: Late entry note patient seen at 1250. Attempts at CPAP trials, unsuccessful this morning. FiO2 decreased 50%, with adequate oxygenation. 02/09: Afebrile. The patient was transitioned to CPAP trials with pressure support of 22/8. FiO2 currently at 55% continuing to wean. Patient noted with positive fluid balance Lasix 40 mg IV now, patient is initiated on Lasix 40 daily. Patient with positive air leak in chest tubes #1-28 Setswana right and #3 pigtail left, both at 2+. Sedation vacation initiated early this a.m. patient neurologically intact. Patient continues on moderate sedation for CPAP to maintain ventilator synchrony plan for transitioning to Precedex. Noted improvement with subcu emphysema. Extensive discussion with patient's daughter regarding a possibility of a tracheostomy if unsuccessful with ventilator weaning process. 02/10: Subcutaneous emphysema has worsened overnight per RN who took care of the patient yesterday, now extending to the upper chest left neck and to the left side of the face including left eyelids. No increase in FiO2 requirement currently on 55%. I have reduced inspiratory pressure from 32 to 28. FiO2 reduced to 50%. Will check a repeat chest x-ray in afternoon if needed. Will request CT surgical evaluation for persistent subcutaneous emphysema despite 2 chest tubes bilaterally 02/11 Patient is sedated with Diprivan, Versed and Fentanyl drips. T: 101.[address] guided chest tube placement by IR today 02/12 No events overnight. Remains sedated and intubated. Afebrile. On PC/AC with PEEP: 8 and FIO2 40%. 02/13 Patient remains intubated and heavily sedated. Afebrile. Repeat CT chest yesterday showed loculated anterior left pneumothorax has resolved. A small left pleural effusion remains present and the 2 left chest tubes appear to be in good position to drain the fluid. Significant improvement in the bilateral chest wall subcutaneous emphysema. 02/14 Patient remains sedated and intubated. Afebrile. On Bumex drip 0.5mg/hr. 02/15 Patient remains intubated and sedated, On Bumex drip 0.5mg/hr with good urine output. T:100.1 02/16 Patient remains sedated and intubated. Off Bumex drip. Afebrile. 02/17 Remains intubated and sedated with Diprivan and Fentanyl drips. Afebrile. For trach tomorrow. 02/18: Trach anticipated for today. Remains sedated. Family at the bedside updated. Coags are normal 02/19: Tracheostomy performed yesterday, patient now with increasing oxygen requirement more critical. Currently on 70% FiO2. A stat CT of the chest ordered by ID shows persistent consolidation multilobar with multiple cavitations. Family updated at the bedside. At this time do not appear to be adequately responding to treatment 02/20: Remains critical with high FiO2 and PEEP requirements. CT chest yesterday showed persistent consolidation and cavitation and a moderate-sized left pleural effusion. Sputum culture again growing MRSA. White count increased to 19,000 today. Left pleural effusion need to be drained, consult IR for CT guided chest tube, due to worsening sepsis 02/21: Patient remains intubated sedated and critically ill. PEEP requirement still remains high and FiO2 is at 50%. Radiology to place new large bore pigtail chest tube for left pleural effusion which is loculated. Will remove the small pigtail chest tube after new one is placed. On sedation hold patient appears to be weak on left side. Check CT of the head also. Grossly fluid overloaded. We will start scheduled dialysis with IV Lasix. Teflaro added to Zyvox yesterday 02/22: Continues to be requiring high oxygen currently at 50% PEEP at 8. New large bore pigtail chest tube placed on the left side yesterday with 200 mL output since placement. Bilateral previous pigtails to waterseal plan to remove the left original pigtail chest tube today. Patient continues to be encephalopathy 02/23: Remains on full ventilator support diuresing well with Lasix but still significantly fluid overloaded. Increase Lasix to 40 every 6 hours, add Diamox for 3 days. Continue chest tubes to suction. Fio2 reduced to 40% PEEP down to 10. MRI and EEG ordered due to persistent encephalopathy 02/24: No acute change in neurological status. EEG in progress. MRI pending. Right upper lobe pneumothorax resolved. Chest tubes 4 remain on -40 cm of water pressure plan for left upper and lower chest tube to be placed to waterseal today. Tracheal sutures in situ area clean dry and intact plan for suture removal of trach site tomorrow. Definition of goals of care to be discussed with palliative/ family conference scheduled for Sunday 02/25. 02/25: Remains on full vent support, PEEP 8, FiO2 50%. Remains on propofol and fentanyl. CXR remains stable. Tolerated PSV for 2 hours yesterday. Start Precedex and clonidine to facilitate more aggressive SBT, change fentanyl to patch. MRI negative for CVA, EEG encephalopathy. 02/26: No events over the night. Patient remains poorly responsive. No change in oxygenation, tolerating CPAP 15/8 and 55% O2. T-max of 99.1. I/O 3368/ 4580. Sister present at bedside. 2 right-sided chest tubes on suction, #4 with continuous air leak, 2 left-sided chest tubes on waterseal with no leak. Objective Vital Signs Date Time Temp Pulse Resp B/P (MAP) Pulse Ox O2 Delivery O2 Flow Rate FiO2 02/26/18 13:06 97 55 02/26/18 12:30 80 24 111/57 (75) 02/26/18 12:19 98.4 Intake and Output 02/26/18 02/26/18 02/27/18 08:00 16:00 00:00 Intake Total 789 ml 961.5 ml Output Total 750 ml Balance 39 ml 961.5 ml Result Diagram: 02/26/18 0423 02/26/18 0423 Imaging Last 24 hours Impressions Chest X-Ray 02/26/18 0600 Signed Impressions: Service Date/Time: Monday, February 26, 2018 03:24 - CONCLUSION: 1. 2 chest tubes present bilaterally with a small right apical pneumothorax present. Air space disease and loculated fluid on the left are stable. Everett Ng MD Last Impressions Chest X-Ray 02/17/18 0000 Signed Impressions: Service Date/Time: Saturday, February 17, 2018 04:00 - CONCLUSION: 1. Patchy alveolar disease characteristic of edema or pneumonia. There has been no significant change when compared to the prior exam. To Vaughn MD Chest CT 02/12/18 1334 Signed Impressions: Service Date/Time: Monday, February 12, 2018 14:07 - CONCLUSION: 1. The loculated anterior left pneumothorax has resolved. A small left pleural effusion remains present and the 2 left chest tubes appear to be in good position to drain the fluid. 2. Significant improvement in the bilateral chest wall subcutaneous emphysema. 3. Stable severe kinking of the large bore right chest tube. This chest tube also extends into the fissure. Given these 2 findings, this likely not providing any significant suction. Consider removal. 4. Stable severe bilateral airspace consolidation with multifocal areas of cavitation. Michael Perea MD Liver Ultrasound 02/11/18 0000 Signed Impressions: Service Date/Time: Sunday, February 11, 2018 09:34 - CONCLUSION: Nondiagnostic examination CT scan is recommended for further evaluation if clinically indicated. To Vaughn MD Neck CT 02/10/18 0000 Signed Impressions: Service Date/Time: Saturday, February 10, 2018 14:57 - CONCLUSION: 1. Extensive subcutaneous edema in the neck which has dissected cephalad from the chest and is worse on the left side. 2. Support apparatus as above. See chest CT report for evaluation of lungs. 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 No adenopathy. Everett Ng MD Procedures 02/05- Right emergent 20 F chest tube placement 02/06: Left 28 Setswana chest tube placement, right chest tube replacement 28 Setswana Objective Remarks General: Patient is sedated, poorly responsive, ill-appearing HEENT: Pupils are equal and reactive, sclerae are anicteric, trach in place, dry mucous membranes, no JVD appreciated Chest: Decreased breath sounds bilaterally at bases, no wheezes, bilateral chest tubes x2 on each side CVS: Regular heart sounds, no murmurs GI/abdomen: Soft, appears nontender, bowel sounds decreased, not distended Neuro: Patient sedated, mechanically ventilated, does not open eyes to voice stimuli, does not follow commands, grimaces to pain Extremities: Warm bilaterally, 1+bilateral peripheral edema upper and lower extremities, positive peripheral pulses A/P Assessment and Plan Neuro: Acute metabolic encephalopathy Continue Precedex and clonidine Scheduled oxycodone for pain and fentanyl as needed Daily sedation vacation, as tolerated Pulm: Acute hypoxemic respiratory failure -improved O2 requirements MRSA pneumonia, with multiple cavitations and consolidation ARDS Moderate sized L pleural effusion s/p 14 F chest tube COPD Bilateral pneumothorax, status post large bore chest tube Persistent right apical pneumothorax Post Influenza pneumonia Continue vent support keep sats >90%, s/p Trach 02/18 On PRVC RR 16, TV 500, IT:1.0, PEEP: 8, FIO2: 50%. Daily SBT with high pressure support CT chest on 02/19/2018 showed bilateral consolidation extensive, cavitating lesions, moderate loculated left effusion Fluid studies sent 02/22/2018 not consistent with empyema Bilateral pigtail catheters and [address](4 total)-has minimal ouput, but maintain all chest tubes due to pneumo re-expansion Moderate left-sided pleural effusion, new left pigtail chest tube placed by radiology 02/21/2018 , but with only partial drainage Thoracic surgery has followed- Dr. Thornton-not planning on any surgical intervention DuoNeb scheduled and when necessary. Renal: Acute kidney injury-resolved Fluid overload -Maintain Alexandre -Monitor renal function, I/O's, electrolytes replacement per protocol. -Continue diuresis Cardiovascular: A. fib with RVR (converted to NSR 02/02) Significantly fluid overloaded -02/05 amiodarone infusion discontinued. -02/05 GRANT -no valvular vegetations. EF 55-60%, trace MVR, mild TVR, PAP 35 -IV Lasix 40 mg q6, Diamox for 3 days being completed -On Cardizem 60mg Q6, Lopressor 25mg Q12 GI Elevated LFTs ( trending down) -Hepatitis profile: Negative. US liver: non-diagnostic study -Tube feeds Jevity 1.5 -On Pepcid 20mg BID -J tube placement in OR this week per gen surgery ID: MRSA, Enterobacter pneumonia MRSA Bacteremia -Antibiotics per ID. On Zyvox, Teflaro and Zosyn. Persistent MRSA and sputum -Monitor for signs of new infections ( Fever, WBC) -ID- Dr. Singleton following. 02/10, 02/15, 02/17 Sputum: MRSA 02/10 BC: NGTD 01/30 MRSA bacteremia Endocrine: Hyperglycemia Medium scale sliding scale insulin dosing Glucose monitoring per ICU protocol Hematology: Anemia Unclear etiology, currently being transfused DVT GI prophylaxis - Teds SCDs - Subcutaneous heparin - Pepcid Lines: peripheral IV's. Palliative care is following. 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 Code status: Alternative code I discussed in detail patient's condition with sister present at bedside. Based on patient's prior wishes sister does not think she would want this. We will discuss with family over the next few days further avenues of care. Vinicio Carvalho MD Feb 26, 2018 14:05
--- NOTE | 2018-02-26 15:53 | HHI.PR ---
cc: Kevin Nj MD Subjective Subjective Notes On MV via trach Family at bedside Objective Vitals/I&O Vital Signs Date Time Temp Pulse Resp B/P (MAP) Pulse Ox O2 Delivery O2 Flow Rate FiO2 02/26/18 14:00 80 02/26/18 13:06 97 55 02/26/18 12:30 24 111/57 (75) 02/26/18 12:19 98.4 Labs Laboratory Tests Test 02/26/18 04:23 White Blood Count 19.1 Red Blood Count 2.27 Hemoglobin 6.3 Hematocrit 19.6 Mean Corpuscular Volume 86.4 Mean Corpuscular Hemoglobin 27.6 Mean Corpuscular Hemoglobin Concent 32.0 Red Cell Distribution Width 16.2 Platelet Count 462 Mean Platelet Volume 7.8 Neutrophils (%) (Auto) 85.5 Lymphocytes (%) (Auto) 7.0 Monocytes (%) (Auto) 5.4 Eosinophils (%) (Auto) 1.6 Basophils (%) (Auto) 0.5 Neutrophils # (Auto) 16.3 Lymphocytes # (Auto) 1.3 Monocytes # (Auto) 1.0 Eosinophils # (Auto) 0.3 Basophils # (Auto) 0.1 CBC Comment AUTO DIFF Differential Comment AUTO DIFF CONFIRMED Stomatocytes 1+ Blood Urea Nitrogen 24 Creatinine 0.74 Random Glucose 166 Total Protein 6.9 Albumin 1.9 Calcium Level 8.8 Phosphorus Level 2.9 Magnesium Level 2.2 Alkaline Phosphatase 290 Aspartate Amino Transf (AST/SGOT) 24 Alanine Aminotransferase (ALT/SGPT) 24 Total Bilirubin 0.4 Sodium Level 138 Potassium Level 3.2 Chloride Level 98 Carbon Dioxide Level 32.4 Anion Gap 8 Estimat Glomerular Filtration Rate 80 Date/Time Source Procedure Growth Status 02/19/18 14:03 Blood Peripheral Aerobic Blood Culture - Final NO GROWTH IN 5 DAYS Complete 02/19/18 14:03 Blood Peripheral Anaerobic Blood Culture - Final NO GROWTH IN 5 DAYS Complete 02/22/18 14:19 Fluid Pleural Fluid Fungal Smear - Final NO FUNGAL ELEMENTS SEEN. Resulted 02/22/18 14:19 Fluid Pleural Fluid Fungal Culture Pending Resulted 02/10/18 13:53 Genital Vaginal Genital Culture - Final Klebsiella Pneumoniae Zelda Albicans Complete 02/17/18 18:00 Sputum Endotracheal Gram Stain - Final Complete 02/17/18 18:00 Sputum Culture - Final S. Aureus Mrsa Complete 01/31/18 07:42 Urine Catheterized Urine Urine Culture - Final NO GROWTH IN 48 HOURS. Complete Cardiovascular: Regular Lungs: Clear Abdomen: Non-distended, Non-tender Extremities: Other (mioderate generlaized edema ) A/P Assessment and Plan 62 year old female with VDRF s/p trach placement; multiple medical problems -Was planning to place open jejunostomy tube vs G tube in pouch in OR tomorrow but spoke with Dr. Carvalho--- family meeting planned for -Will discuss operative feeding tubes at that time if family desires -Will postpone for now Attending Note - Dr. Nj As above; will await family's wishes and will standby. The exam, history, and the medical decision-making described in the above note were completed with the assistance of the mid-level provider. I reviewed and agree with the findings presented. I attest that I had a [id number] encounter with the patient on the same day, and personally performed and documented my assessment and findings in the medical record. Adri Sheldon/[employer] Feb 26, 2018 15:53 Kevin Nj MD Feb 27, 2018 08:15
--- NOTE | 2018-02-26 18:39 | HHI.IDPN ---
Subjective Subjective Remarks remains on vent, up to 45% FiO2, PEEP 8 no fever comnt to have intermittently low BP not on pressors remains with CTs x 4, no airleak, no drainage sp trach Not responding family planning possible withdrawl on dw sister @ b/s Antibiotics vancomycin Lines Line sites with no e.o infection Past Medical History Gastric bypass Tonsillectomy Allergies: Coded Allergies: No Known Allergies (Unverified , 01/30/18) Objective . Vital Signs Date Time Temp Pulse Resp B/P (MAP) Pulse Ox O2 Delivery O2 Flow Rate FiO2 02/26/18 18:00 88 02/26/18 16:00 98.5 85 27 118/75 (89) 94 02/26/18 16:00 55 02/26/18 16:00 85 02/26/18 15:54 94 55 02/26/18 14:00 80 02/26/18 13:06 97 55 02/26/18 12:30 80 24 111/57 (75) 98 02/26/18 12:19 98.4 80 25 117/58 98 02/26/18 12:04 98.4 86 24 117/58 98 02/26/18 12:00 87 02/26/18 12:00 55 02/26/18 12:00 98.4 87 27 117/58 (77) 99 02/26/18 10:00 107 02/26/18 08:48 98.7 103 24 127/79 96 02/26/18 08:36 100 55 02/26/18 08:36 55 02/26/18 08:33 99.1 86 25 115/74 100 02/26/18 08:00 98.6 91 25 112/55 (74) 100 02/26/18 08:00 91 02/26/18 08:00 55 02/26/18 06:00 91 02/26/18 04:52 92 55 02/26/18 04:17 31 02/26/18 04:00 77 02/26/18 04:00 98.4 77 29 101/53 (69) 98 02/26/18 04:00 55 02/26/18 02:00 77 02/26/18 01:53 95 55 02/26/18 00:00 55 02/26/18 00:00 98.6 98 35 106/56 (73) 94 02/26/18 00:00 98 02/25/18 22:00 74 02/25/18 20:28 100 45 02/25/18 20:00 74 02/25/18 20:00 98.8 74 26 108/58 (75) 100 02/25/18 20:00 45 02/26/18 02/26/18 02/27/18 15:00 23:00 07:00 Intake Total 961.5 ml 1317 ml Output Total 2275 ml Balance 961.5 ml -958 ml IV Total 516.5 ml 204 ml Tube Feeding 623 ml Packed Cells 400 ml 400 ml Blood Product IV Normal Saline Flush 45 ml 30 ml Other 60 ml Output Urine Total 2275 ml Chest Tube Drainage Total 0 ml # Bowel Movements 1 . Laboratory Tests Test 02/25/18 06:13 02/26/18 04:23 White Blood Count 21.1 TH/MM3 19.1 TH/MM3 Red Blood Count 2.92 MIL/MM3 2.27 MIL/MM3 Hemoglobin 7.9 GM/DL 6.3 GM/DL Hematocrit 25.0 % 19.6 % Mean Corpuscular Volume 85.4 FL 86.4 FL Mean Corpuscular Hemoglobin 27.2 PG 27.6 PG Mean Corpuscular Hemoglobin Concent 31.8 % 32.0 % Red Cell Distribution Width 16.0 % 16.2 % Platelet Count 537 TH/MM3 462 TH/MM3 Mean Platelet Volume 7.9 FL 7.8 FL Neutrophils (%) (Auto) 86.8 % 85.5 % Lymphocytes (%) (Auto) 6.1 % 7.0 % Monocytes (%) (Auto) 4.6 % 5.4 % Eosinophils (%) (Auto) 2.1 % 1.6 % Basophils (%) (Auto) 0.4 % 0.5 % Neutrophils # (Auto) 18.3 TH/MM3 16.3 TH/MM3 Lymphocytes # (Auto) 1.3 TH/MM3 1.3 TH/MM3 Monocytes # (Auto) 1.0 TH/MM3 1.0 TH/MM3 Eosinophils # (Auto) 0.5 TH/MM3 0.3 TH/MM3 Basophils # (Auto) 0.1 TH/MM3 0.1 TH/MM3 CBC Comment AUTO DIFF AUTO DIFF Differential Total Cells Counted 100 Neutrophils % (Manual) 81 % Band Neutrophils % 2 % Lymphocytes % 6 % Monocytes % 5 % Eosinophils % 3 % Basophils % 2 % Neutrophils # (Manual) 17.7 TH/MM3 Metamyelocytes 1 % Differential Comment FINAL DIFF MANUAL AUTO DIFF CONFIRMED Platelet Estimate HIGH Platelet Morphology Comment NORMAL Hematology Comments Stomatocytes 1+ Laboratory Tests Test 02/25/18 06:13 02/26/18 04:23 Blood Urea Nitrogen 13 MG/DL 24 MG/DL Creatinine 0.50 MG/DL 0.74 MG/DL Random Glucose 163 MG/DL 166 MG/DL Calcium Level 9.0 MG/DL 8.8 MG/DL Magnesium Level 2.2 MG/DL 2.2 MG/DL Sodium Level 139 MEQ/L 138 MEQ/L Potassium Level 3.5 MEQ/L 3.2 MEQ/L Chloride Level 95 MEQ/L 98 MEQ/L Carbon Dioxide Level 33.2 MEQ/L 32.4 MEQ/L Anion Gap 11 MEQ/L 8 MEQ/L Estimat Glomerular Filtration Rate 125 ML/MIN 80 ML/MIN Total Protein 6.9 GM/DL Albumin 1.9 GM/DL Phosphorus Level 2.9 MG/DL Alkaline Phosphatase 290 U/L Aspartate Amino Transf (AST/SGOT) 24 U/L Alanine Aminotransferase (ALT/SGPT) 24 U/L Total Bilirubin 0.4 MG/DL Imaging Last Impressions Chest X-Ray 02/26/18 0600 Signed Impressions: Service Date/Time: Monday, February 26, 2018 03:24 - CONCLUSION: 1. 2 chest tubes present bilaterally with a small right apical pneumothorax present. Air space disease and loculated fluid on the left are stable. Everett Ng MD Brain MRI 02/24/18 0000 Signed Impressions: Service Date/Time: Saturday, February 24, 2018 12:42 - CONCLUSION: Negative exam with no evidence of hemorrhage, mass infarction. Kevin Tello MD Head CT 02/21/18 0000 Signed Impressions: Service Date/Time: February 14:24 - CONCLUSION: 1. Bilateral mastoiditis. 2. Otherwise negative. No acute intracranial process to explain current clinical symptoms Gino Hernandez MD Chest Tube Insertion 02/21/18 0000 Signed Impressions: Service Date/Time: February 14:36 - CONCLUSION: Uncomplicated chest tube placement as above. Karri Muhammad MD Chest CT 02/19/18 0000 Signed Impressions: Service Date/Time: Monday, February 19, 2018 13:36 - CONCLUSION: 1. Multilobar consolidation with multiple cavities, not significantly changed. Differential possibilities are again noted to include septic emboli, TB and fungal etiologies including necrotizing process and autoimmune process such as Britton's. 2. Small right anterobasilar pneumothorax. Right-sided chest tube likely nonfunctional. 3. 2 left-sided chest tubes with loculated left pleural effusion, slightly more prominent on current study. Karri Muhammad MD Abdomen X-Ray 02/18/18 0000 Signed Impressions: Service Date/Time: Sunday, February 18, 2018 15:47 - CONCLUSION: 1. Suction type NGT in the region of the GE junction. Romeo Espinoza MD Liver Ultrasound 02/11/18 0000 Signed Impressions: Service Date/Time: Sunday, February 11, 2018 09:34 - CONCLUSION: Nondiagnostic examination CT scan is recommended for further evaluation if clinically indicated. To Vaughn MD Neck CT 02/10/18 0000 Signed Impressions: Service Date/Time: Saturday, February 10, 2018 14:57 - CONCLUSION: 1. Extensive subcutaneous edema in the neck which has dissected cephalad from the chest and is worse on the left side. 2. Support apparatus as above. See chest CT report for evaluation of lungs. 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 No adenopathy. Everett Ng MD Physical Exam CONSTITUTIONAL/GENERAL: On the vent SKIN: No jaundice, rashes, or lesions. Ecchymoses on upper extremities. Skin temperature appropriate. generalized edema previous Sq emphysema resolved HEAD: Atraumatic. Normocephalic. EYES: Pupils equal and round and reactive. No scleral icterus. No injection or drainage. ENT: No nasal discharge, orally intubated NECK: Supple, nontender. CARDIOVASCULAR: Regular rate and rhythm without murmurs, gallops, or rubs. RESPIRATORY/CHEST: Symmetric, unlabored respirations. Rhonchi b/l. CTx2 on R and CT x 2 on the L GASTROINTESTINAL: Abdomen soft, nondistended. Obese. No reaction to palpation , not guarding. GENITOURINARY: Without palpable bladder distension. Alexandre catheter in place. MUSCULOSKELETAL: Extremities without clubbing, cyanosis, + 3 diffuse tight edema. . NEUROLOGICAL: unresponsive does not track, eyes closed not following commands PSYCHIATRIC: unable to assess LINE: no evidence of infection Assessment & Plan Remarks IMPRESSION MRSA PNA, necrotizing Multiple b/l pneumothoraces ? postinfluenza PNA Loculated hydropneumothorax: ? empyema Acute VDRF failure to weaning sp trach High grade , sustained MRSA bacteremia GRANT negative Severe leukocytosis and bandemia New PNA, Enterobacter (panS) along with MRSA Empyema and multiple cavitary lesions - essentaially necrotizing PNA - no e/o endocarditis - sp multiple CTs placement MS change : persistent encephalopathy Prognosis is poor both neurological and overall PLAN dc Zyvox, teflaro cont vancomycin dw sister @ b/s paola Singleton,Carlene Torres MD Feb 26, 2018 18:39
--- NOTE | 2018-02-26 19:19 | HHI.HCPN ---
Reason for visit a. To assist with evaluation and management of symptoms including: dyspnea; encephalopathy, pain b. To assist medical decision maker(s) with: better understanding of current medical conditions; weighing benefits/burdens of medical treatment options; making medical treatment decisions. . Subjective/Interval History Patient was transitioned from fentanyl/propofol drips to fentanyl patch plus Precedex plus clonidine plus PRN lorazepam. She is needing the prn lorazepam for tachypnea. She is not waking up. Tolerating CPAP trial at time of my visit at 55% FI02 and 15/8. No significant change overnight. Spoke with Dr. Carvalho who is assuming care as sound effects manager. Spoke with Dr. Singleton regarding infection status. Collaborated with bedside nurse. . Family/friend interactions Patient's sister is at bedside. She has been part of palliative care discussions and the patient's daughters have asked her to be present to assist with decision making. Sister reports that pat's daughters are getting closer to making a decision to forego further aggressive care. Dr. Carvalho has said that he wants to get to know the patient better over the next couple of days to further advise family. sister must return to [place] on Sunday and is hoping decisions can be made before she leaves. We discussed several important prognostic questions that the doctors will want to address in helping family with the decisions-- 1) Do we think the patient can survive the hospitalization? 2) If she survives the hospitalization, do we think she will eventually be successfully weaned from the vent? 3) Will her quality of life ever return to a level of meaning and purpose that the patient feels would be worth fighting for? (for this , the family needs to let the doctors know what her quality of life needs would be) . Advance Directives Living Will: Never completed Health Care Surrogate: Never completed Durable Power of Wind Energy Engineer: Never completed Advance Directive Specifics Date completed: Patient has never completed an advanced directive. . Health Care Surrogate(s): There is no written designation of healthcare surrogate. . Documented care wishes: There is no written documentation of healthcare goals/preferences. . Objective Vital Signs Date Time Temp Pulse Resp B/P (MAP) Pulse Ox O2 Delivery O2 Flow Rate FiO2 02/26/18 18:00 88 02/26/18 16:00 98.5 85 27 118/75 (89) 94 4/24/18 16:00 55 02/26/18 16:00 85 02/26/18 15:54 94 55 02/26/18 14:00 80 02/26/18 13:06 97 55 02/26/18 12:30 80 24 111/57 (75) 98 02/26/18 12:19 98.4 80 25 117/58 98 02/26/18 12:04 98.4 86 24 117/58 98 02/26/18 12:00 87 02/26/18 12:00 55 02/26/18 12:00 98.4 87 27 117/58 (77) 99 02/26/18 10:00 107 02/26/18 08:48 98.7 103 24 127/79 96 02/26/18 08:36 100 55 02/26/18 08:36 55 02/26/18 08:33 99.1 86 25 115/74 100 02/26/18 08:00 98.6 91 25 112/55 (74) 100 02/26/18 08:00 91 02/26/18 08:00 55 02/26/18 06:00 91 02/26/18 04:52 92 55 02/26/18 04:17 31 02/26/18 04:00 77 02/26/18 04:00 98.4 77 29 101/53 (69) 98 02/26/18 04:00 55 02/26/18 02:00 77 02/26/18 01:53 95 55 02/26/18 00:00 55 02/26/18 00:00 98.6 98 35 106/56 (73) 94 02/26/18 00:00 98 02/25/18 22:00 74 02/25/18 20:28 100 45 02/25/18 20:00 74 02/25/18 20:00 98.8 74 26 108/58 (75) 100 02/25/18 20:00 45 Intake & Output 02/26/18 02/26/18 07:00 19:00 Intake Total 1389 ml 2278.5 ml Output Total 750 ml 2275 ml Balance 639 ml 3.5 ml IV Total 700 ml 720.5 ml Tube Feeding 629 ml 623 ml Packed Cells 800 ml Blood Product IV Normal Saline Flush 75 ml Other 60 ml 60 ml Output Urine Total 750 ml 2275 ml Chest Tube Drainage Total 0 ml 0 ml # Bowel Movements 0 1 . Physical Exam CONSTITUTIONAL/GENERAL: This is an obese patient in the medical intensive care unit bed. Does not open eyes to loud voice or exam. TUBES/LINES/DRAINS: Tracheostomy; bilateral chest tubes x2; peripheral IV; sequential compressive devices. NG tube. SKIN: Pale. No jaundice, rashes. Ecchymoses on upper extremities. No wounds seen anteriorly. Skin temperature appropriate. Not diaphoretic. EYES: Pupils equal and round. Unable to evaluate extraocular movements. No scleral icterus. No injection or drainage. ENT: Unable to evaluate hearing secondary to clinical condition. Nose without bleeding or purulent drainage. Moist oral mucosa. NECK: Tracheostomy midline. CARDIOVASCULAR: Regular rate/rhythm without murmurs, gallops, or rubs. RESPIRATORY/CHEST: Bilateral chest tubes. Symmetric respirations on vent. Decreased air movement at bases. Scattered rhonchi bilaterally L = R. Abdominal breathing on CPAP noted. GASTROINTESTINAL: Abdomen obese, large, soft. Active bowel sounds. GENITOURINARY: Without palpable bladder distension. Alexandre catheter in place with large amount of output. MUSCULOSKELETAL: Extremities without clubbing, cyanosis. Widespread edema to all 4 extremities. No mottling. NEUROLOGICAL: Does not awaken to loud voice or exam. Not tracking or following commands. PSYCHIATRIC: Unable to assess due to level of responsiveness . Diagnostic Tests Laboratory Laboratory Tests Test 02/24/18 05:15 02/24/18 13:25 02/25/18 06:13 02/26/18 04:23 White Blood Count 20.0 TH/MM3 (4.0-11.0) 21.1 TH/MM3 (4.0-11.0) 19.1 TH/MM3 (4.0-11.0) Red Blood Count 2.95 MIL/MM3 (4.00-5.30) 2.92 MIL/MM3 (4.00-5.30) 2.27 MIL/MM3 (4.00-5.30) Hemoglobin 8.2 GM/DL (11.6-15.3) 7.9 GM/DL (11.6-15.3) 6.3 GM/DL (11.6-15.3) Hematocrit 25.9 % (35.0-46.0) 25.0 % (35.0-46.0) 19.6 % (35.0-46.0) Mean Corpuscular Volume 87.8 FL (80.0-100.0) 85.4 FL (80.0-100.0) 86.4 FL (80.0-100.0) Mean Corpuscular Hemoglobin 27.8 PG (27.0-34.0) 27.2 PG (27.0-34.0) 27.6 PG (27.0-34.0) Mean Corpuscular Hemoglobin Concent 31.6 % (32.0-36.0) 31.8 % (32.0-36.0) 32.0 % (32.0-36.0) Red Cell Distribution Width 16.5 % (11.6-17.2) 16.0 % (11.6-17.2) 16.2 % (11.6-17.2) Platelet Count 420 TH/MM3 (150-450) 537 TH/MM3 (150-450) 462 TH/MM3 (150-450) Mean Platelet Volume 8.5 FL (7.0-11.0) 7.9 FL (7.0-11.0) 7.8 FL (7.0-11.0) Neutrophils (%) (Auto) 79.7 % (16.0-70.0) 86.8 % (16.0-70.0) 85.5 % (16.0-70.0) Lymphocytes (%) (Auto) 7.6 % (9.0-44.0) 6.1 % (9.0-44.0) 7.0 % (9.0-44.0) Monocytes (%) (Auto) 5.8 % (0.0-8.0) 4.6 % (0.0-8.0) 5.4 % (0.0-8.0) Eosinophils (%) (Auto) 5.7 % (0.0-4.0) 2.1 % (0.0-4.0) 1.6 % (0.0-4.0) Basophils (%) (Auto) 1.2 % (0.0-2.0) 0.4 % (0.0-2.0) 0.5 % (0.0-2.0) Neutrophils # (Auto) 16.0 TH/MM3 (1.8-7.7) 18.3 TH/MM3 (1.8-7.7) 16.3 TH/MM3 (1.8-7.7) Lymphocytes # (Auto) 1.5 TH/MM3 (1.0-4.8) 1.3 TH/MM3 (1.0-4.8) 1.3 TH/MM3 (1.0-4.8) Monocytes # (Auto) 1.2 TH/MM3 (0-0.9) 1.0 TH/MM3 (0-0.9) 1.0 TH/MM3 (0-0.9) Eosinophils # (Auto) 1.1 TH/MM3 (0-0.4) 0.5 TH/MM3 (0-0.4) 0.3 TH/MM3 (0-0.4) Basophils # (Auto) 0.2 TH/MM3 (0-0.2) 0.1 TH/MM3 (0-0.2) 0.1 TH/MM3 (0-0.2) CBC Comment AUTO DIFF AUTO DIFF AUTO DIFF Differential Total Cells Counted 100 100 Neutrophils % (Manual) 80 % (16-70) 81 % (16-70) Lymphocytes % 4 % (9-44) 6 % (9-44) Monocytes % 3 % (0-8) 5 % (0-8) Eosinophils % 9 % (0-4) 3 % (0-4) Basophils % 1 % (0-2) 2 % (0-2) Neutrophils # (Manual) 16.6 TH/MM3 (1.8-7.7) 17.7 TH/MM3 (1.8-7.7) Metamyelocytes 1 % (0-1) 1 % (0-1) Myelocytes 2 % (0-0) Differential Comment FINAL DIFF MANUAL FINAL DIFF MANUAL AUTO DIFF CONFIRMED Platelet Estimate HIGH (NORMAL) HIGH (NORMAL) Platelet Morphology Comment NORMAL (NORMAL) NORMAL (NORMAL) Red Cell Morphology Comment NORMAL (NORMAL) Blood Urea Nitrogen 12 MG/DL (7-18) 13 MG/DL (7-18) 24 MG/DL (7-18) Creatinine 0.62 MG/DL (0.50-1.00) 0.50 MG/DL (0.50-1.00) 0.74 MG/DL (0.50-1.00) Random Glucose 181 MG/DL (74-106) 163 MG/DL (74-106) 166 MG/DL (74-106) Total Protein 8.2 GM/DL (6.4-8.2) 6.9 GM/DL (6.4-8.2) Albumin 1.9 GM/DL (3.4-5.0) 1.9 GM/DL (3.4-5.0) Calcium Level 8.7 MG/DL (8.5-10.1) 9.0 MG/DL (8.5-10.1) 8.8 MG/DL (8.5-10.1) Phosphorus Level 3.5 MG/DL (2.5-4.9) 4.5 MG/DL (2.5-4.9) 2.9 MG/DL (2.5-4.9) Magnesium Level 2.1 MG/DL (1.5-2.5) 2.2 MG/DL (1.5-2.5) 2.2 MG/DL (1.5-2.5) Alkaline Phosphatase 402 U/L (45-117) 290 U/L (45-117) Aspartate Amino Transf (AST/SGOT) 54 U/L (15-37) 24 U/L (15-37) Alanine Aminotransferase (ALT/SGPT) 40 U/L (10-53) 24 U/L (10-53) Total Bilirubin 0.4 MG/DL (0.2-1.0) 0.4 MG/DL (0.2-1.0) Sodium Level 139 MEQ/L (136-145) 139 MEQ/L (136-145) 138 MEQ/L (136-145) Potassium Level 3.8 MEQ/L (3.5-5.1) 3.5 MEQ/L (3.5-5.1) 3.2 MEQ/L (3.5-5.1) Chloride Level 97 MEQ/L (98-107) 95 MEQ/L (98-107) 98 MEQ/L (98-107) Carbon Dioxide Level 33.8 MEQ/L (21.0-32.0) 33.2 MEQ/L (21.0-32.0) 32.4 MEQ/L (21.0-32.0) Anion Gap 8 MEQ/L (5-15) 11 MEQ/L (5-15) 8 MEQ/L (5-15) Estimat Glomerular Filtration Rate 98 ML/MIN (>89) 125 ML/MIN (>89) 80 ML/MIN (>89) Band Neutrophils % 2 % (0-6) Hematology Comments Stomatocytes 1+ (NORMAL) . Result Diagram: 02/26/18 0423 02/26/18 0423 Microbiology Microbiology Date/Time Source Procedure Growth Status 02/19/18 14:03 Blood Peripheral Aerobic Blood Culture - Final NO GROWTH IN 5 DAYS Complete 02/19/18 14:03 Blood Peripheral Anaerobic Blood Culture - Final NO GROWTH IN 5 DAYS Complete 02/22/18 14:19 Fluid Pleural Fluid Fungal Smear - Final NO FUNGAL ELEMENTS SEEN. Resulted 02/22/18 14:19 Fluid Pleural Fluid Fungal Culture Pending Resulted 02/10/18 13:53 Genital Vaginal Genital Culture - Final Klebsiella Pneumoniae Zelda Albicans Complete 02/17/18 18:00 Sputum Endotracheal Gram Stain - Final Complete 02/17/18 18:00 Sputum Culture - Final S. Aureus Mrsa Complete 01/31/18 07:42 Urine Catheterized Urine Urine Culture - Final NO GROWTH IN 48 HOURS. Complete . Imaging Last Impressions Chest X-Ray 02/26/18 0600 Signed Impressions: Service Date/Time: Monday, February 26, 2018 03:24 - CONCLUSION: 1. 2 chest tubes present bilaterally with a small right apical pneumothorax present. Air space disease and loculated fluid on the left are stable. Everett Ng MD Brain MRI 02/24/18 0000 Signed Impressions: Service Date/Time: Saturday, February 24, 2018 12:42 - CONCLUSION: Negative exam with no evidence of hemorrhage, mass infarction. Kevin Tello MD Head CT 02/21/18 0000 Signed Impressions: Service Date/Time: February 14:24 - CONCLUSION: 1. Bilateral mastoiditis. 2. Otherwise negative. No acute intracranial process to explain current clinical symptoms Gino Hernandez MD Chest Tube Insertion 02/21/18 0000 Signed Impressions: Service Date/Time: February 14:36 - CONCLUSION: Uncomplicated chest tube placement as above. Karri Muhammad MD Chest CT 02/19/18 0000 Signed Impressions: Service Date/Time: Monday, February 19, 2018 13:36 - CONCLUSION: 1. Multilobar consolidation with multiple cavities, not significantly changed. Differential possibilities are again noted to include septic emboli, TB and fungal etiologies including necrotizing process and autoimmune process such as Britton's. 2. Small right anterobasilar pneumothorax. Right-sided chest tube likely nonfunctional. 3. 2 left-sided chest tubes with loculated left pleural effusion, slightly more prominent on current study. Karri Muhammad MD Abdomen X-Ray 02/18/18 0000 Signed Impressions: Service Date/Time: Sunday, February 18, 2018 15:47 - CONCLUSION: 1. Suction type NGT in the region of the GE junction. Romeo Espinoza MD Liver Ultrasound 02/11/18 0000 Signed Impressions: Service Date/Time: Sunday, February 11, 2018 09:34 - CONCLUSION: Nondiagnostic examination CT scan is recommended for further evaluation if clinically indicated. To Vaughn MD Neck CT 02/10/18 0000 Signed Impressions: Service Date/Time: Saturday, February 10, 2018 14:57 - CONCLUSION: 1. Extensive subcutaneous edema in the neck which has dissected cephalad from the chest and is worse on the left side. 2. Support apparatus as above. See chest CT report for evaluation of lungs. 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 No adenopathy. Everett Ng MD . Procedures * 01/31/18 -Intubation/mechanical ventilation right subclavian * Central line placement * Bilateral chest tube placement * Transesophageal echo * 02/18/18 -tracheostomy . Assessment and Plan Disease Oriented Problem List: (1) PNA (pneumonia) Comment: MRSA + Enterobacter (2) Respiratory failure (3) ARDS (adult respiratory distress syndrome) (4) Sepsis Comment: MRSA (5) Anemia (6) Hypoalbuminemia (7) Bilateral pneumothoraces Comment: Recurrent and multiple pneumothoraces . (8) ARF (acute renal failure) Comment: resolved (9) Encephalopathy Symptom Scale: (1) Pain 0-10 Scale: Unable to quantify Comment: No known prehospitalization pain syndromes. Current sources of discomfort might include trach; NG tube; vascular access lines; restraints; Alexandre catheter; chest tubes; prolonged bedbound status. . (2) Dyspnea 0-10 Scale: Unable to quantify Comment: Patient with underlying pneumonia and bilateral pneumothoraces. Dyspnea currently managed with ventilatory support. (3) Encephalopathy 0-10 Scale: Unable to quantify Comment: Remains unclear why this patient is unable to wake up. source of prolonged encephalopathy is unclear -- metabolic? durgs? hypoxic? . Pertinent Non-Medical Issues Psychosocial: Has a male partner . She normally lives with him in a manufactured home. He is a smoker. Her 2 daughters and sister come in from [place] regularly . Spiritual: Patient is scientology latter-day. Transportation Project Manager visits would be appreciated. Legal: There are no advance directives. Without written designation of a healthcare surrogate, proxy decision making would fall to both adult daughters. Ethical issues impacting care: Patient is currently incapacitated to make her own medical decisions. It is unclear if/when she will become capacitated to do so. . Important Contacts Alona Caballero (daughter and co-health care proxy) [phone] Zenobia Clay (daughter and co-health care proxy) [phone] Brett Mackay (boyfriend -- NO DECISION MAKING RIGHTS unless there is written documentation saying otherwise) [phone] . Prognosis On the one hand, other than her morbid obesity, this patient has very few health problems and has managed to stay out of the hospital. Ordinarily, we would expect her to respond well to treatment and improve. This patient declined incredibly quickly and has very severe respiratory disease in spite of the fact that she has no known underlying chronic respiratory illness.She has multiple pneumothoraces. She has developed Enterobacter pneumonia on top of her MRSA pneumonia. Patient remains ventilator dependent at this time status post tracheostomy now over 30 days since admission. Encephlopathy has been persistent. Appears not to be responding to medical treatment. Overall prognosis is guarded, remains at high risk of further decompensation, decline and . . Code Status: Alternative Code Plan == Code Status: ALT CODE (no defibrillation; no chest compression) == Medical Decision Making: Patient is currently incapacitated to make her own healthcare decisions. It is unclear if/when she will recover capacity to do so. Since there is no written designation of healthcare surrogacy that we are aware of, proxy decision making would fall to her 2 adult children -- Alona Caballero and Zenobia Clay. They both have accepted this role. == Goals of medical treatment: Goals of treatment remain aggressive short of no chest compressions or defibrillation. Patient's daughters acting as healthcare proxy decision makers have elected to continue aggressive management ; however, requesting to put on hold J-tube placement at this time. Reviewed likely illness trajectory with anticipated prolonged hospitalization and rehab if patient survives this hospitalization. Reviewed that patient remains at a very high risk of further complications, continued decline and . Family voicing concerns regarding patient's long-term rehabilitation potential, pending LTAC evaluation. == Symptoms: * Dyspnea: Patient with underlying pneumonia and bilateral pneumothoraces. Dyspnea currently managed with ventilatory support. Bilateral chest tubes x2 in place. Patient status post tracheostomy on 02/18, Ongoing CPAP trials. No further recommendations at this time. * Pain: No known pre-hospitalization pain syndromes. Current sources of discomfort might include tracheosotmy; NG tube; vascular access lines; restraints; Alexandre catheter; chest tubes; prolonged bedbound status. Fentanyl drip has been discontinued, currently on oxycodone 5 mg [id number]. Fentanyl 100mcg patch added 02/25/18. Palliative care recommends switching oxycodone 5 mg from around the clock to PRN given addition of Fentanyl patch today. Fentanyl 50mcg q1hr AND Morphine 2mg q2hr PRN available. None given in the past 24 hours. Palliative care recommends discontinuation of Fentanyl 50mcg IV PRN and keeping Morphine 2mg IV PRN (only one IV opioid recommended at a time ). * Encephalopathy: Persistent encephalopathy probably secondary to her sepsis/ critical illness and sedatives. Brain MRI negative for acute process. EEG revealing moderate to severe encephalopathy. Propofol infusion discontinued , currently on Precedex. If no improvement within the next 24-48 hours, palliative care recommends neurology consultation. If neurologic recovery is unlikely, family will not want to continue with aggressive measures. == Case discussed in person with Dr Carvalho and Dr. Singleton as well as bedside nurse. == Family is wanting to hear prognostication from physicians regarding the following to help them make their decisions regarding continue with aggressive care or transitioning to "comfort measures only." 1) Do we think the patient can survive the hospitalization? 2) If she survives the hospitalization, do we think she will eventually be successfully weaned from the vent? 3) Will her quality of life ever return to a level of meaning and purpose that the patient feels would be worth fighting for? (family does NOT think she would want to continue to fight if it is likely that she will spend the rest of her days dependent, in a [facility] setting). == Palliative care will continue to follow up as needed to assist with symptom management and to further clarify goals of medical treatment as the clinical course evolves. Family receptive to this. . Time Spent Total Floor Time (mins): 45 (Total floor time included chart review; patient examination; bedside discussion with sister; in person discussions with Dr. Carvalho and Dr. Singleton; collaboration with bedside nurse.) Face to Face Time (mins): 25 >50% Counseling/Coord of Care: Yes Attestation To help prompt me to consider important information that might be impacting today's encounter and assessment, information from prior notes written by myself or my colleagues may have been "brought forward" into today's note. My signature on this note, however, is an attestation that I personally performed the exam, history, and/or decision-making noted today, and, unless otherwise indicated, the interactions with patient, family, and staff as well as the review of records all occurred today. I also attest that the listed assessment and stated plan reflect my best clinical judgment today based on the combination of historical information, prior notes, and today's exam/ interactions. When time spent is documented, it refers only to time spent today by the signer, or if indicated, combined time spent today by collaborating physician/nurse practitioner. . Hammad Butcher MD Feb 26, 2018 19:19
--- NOTE | 2018-02-26 19:26 | HHI.PR ---
Subjective Remarks Patient remains sedated with Diprivan and Fentanyl infusions. On PRVC with PEEP: 8, FIO2:60%. Afebrile. Tolerated CPAP 8 hrs Daughter at BS Considering withdrawl Objective Vital Signs Vital Signs Date Time Temp Pulse Resp B/P (MAP) Pulse Ox O2 Delivery O2 Flow Rate FiO2 02/26/18 18:00 88 02/26/18 16:00 98.5 85 27 118/75 (89) 94 02/26/18 16:00 55 02/26/18 16:00 85 02/26/18 15:54 94 55 02/26/18 14:00 80 02/26/18 13:06 97 55 02/26/18 12:30 80 24 111/57 (75) 98 02/26/18 12:19 98.4 80 25 117/58 98 02/26/18 12:04 98.4 86 24 117/58 98 02/26/18 12:00 87 02/26/18 12:00 55 02/26/18 12:00 98.4 87 27 117/58 (77) 99 02/26/18 10:00 107 02/26/18 09:00 55 02/26/18 08:48 98.7 103 24 127/79 96 02/26/18 08:36 100 55 02/26/18 08:36 55 02/26/18 08:33 99.1 86 25 115/74 100 02/26/18 08:00 98.6 91 25 112/55 (74) 100 02/26/18 08:00 91 02/26/18 08:00 55 02/26/18 06:00 91 02/26/18 04:52 92 55 02/26/18 04:17 31 02/26/18 04:00 77 02/26/18 04:00 98.4 77 29 101/53 (69) 98 02/26/18 04:00 55 02/26/18 02:00 77 02/26/18 01:53 95 55 02/26/18 00:00 55 02/26/18 00:00 98.6 98 35 106/56 (73) 94 02/26/18 00:00 98 02/25/18 22:00 74 02/25/18 20:28 100 45 02/25/18 20:00 74 02/25/18 20:00 98.8 74 26 108/58 (75) 100 02/25/18 20:00 45 I/O 02/25/18 02/25/18 02/25/18 02/26/18 02/26/18 02/26/18 06:59 14:59 22:59 06:59 14:59 22:59 Intake Total 496 ml 1194.4 ml 885 ml 1289 ml 961.5 ml 1317 ml Output Total 2300 ml 1500 ml 750 ml 2275 ml Balance 496 ml -1105.6 ml -615 ml 539 ml 961.5 ml -958 ml IV Total 496 ml 591.4 ml 252 ml 600 ml 516.5 ml 204 ml Tube Feeding 543 ml 573 ml 629 ml 623 ml Packed Cells 400 ml 400 ml Blood Product IV Normal Saline Flush 45 ml 30 ml Other 60 ml 60 ml 60 ml 60 ml Output Urine Total 2300 ml 1500 ml 750 ml 2275 ml Chest Tube Drainage Total 0 ml 0 ml 0 ml 0 ml # Bowel Movements 2 1 0 1 Result Diagram: 02/26/1842202/26/18422 Objective Remarks GENERAL: WBWN Female, on Vent, sedated SKIN: Warm and dry. HEAD: Normocephalic. EYES: No scleral icterus. No injection or drainage. NECK: Supple, trachea midline. No JVD or lymphadenopathy. CARDIOVASCULAR: Regular rate and rhythm without murmurs, gallops, or rubs. RESPIRATORY: Breath sounds equal bilaterally. No accessory muscle use. [address] SQ Emphysema. GASTROINTESTINAL: Abdomen soft, non-tender, nondistended. MUSCULOSKELETAL: No cyanosis, or edema. Neuro: Sedated, A/P Assessment and Plan Acute hypoxemic respiratory failure s/p trach MRSA pneumonia, with multiple cavitations and consolidation s/p Moderate sized left pleural effusion, ? empyema COPD Bilateral pneumothorax, status post large bore chest tube Post Influenza pneumonia Leukocytosis Anemia PLAN: Cont Vent support keep sats >92% On PRVC RR 16, TV 600, PEEP:8 FIO2: 60%. Decrease FIO2: 50% as bernarda Bronchodilators Pulm toilet, trach care Monitor CT output. CXR today showed no evidence of PTX, b/l pulm infiltrates On Fentanyl and Diprivan dip for sedation. Daily sedation vacation Abx per ID ( On Zyvox) monitor for signs of infections ( Fever, WBC) Continue with tube feeds-On Jevity 1.5@60ml/hr GI/DVT prophylaxis Palliative care is following [facility] at Family considering withdrawl Dru Pride MD Feb 26, 2018 19:26
[2018-02-27] VITALS (17 sets, daily range): BP systolic 113–155; BP diastolic 58–76; PULSE 66–90; RESP 20–31; TEMP 98.7–99.8; O2SAT 92–97
[2018-02-27] MEDS: METOPROLOL TARTRATE 25 MG TAB PO SCH ×2 (01:00→16:10)
[2018-02-27] MEDS: FUROSEMIDE 40 MG/4 ML VIAL IV PUSH SCH ×4 (03:03→20:09)
[2018-02-27] MEDS: oxyCODONE HCL ORAL CONC 5 MG/0.25 ML SYRINGE PO SCH ×4 (03:04→20:10)
[2018-02-27] MEDS: CHLORHEXIDINE GLUCONATE 2 % 1 PACK (2 CLOTHS) TOP SCH (04:00)
[2018-02-27] MEDS: RESP: ALBUTEROL 2.5 MG/IPRATROPIUM 0.5 MG NEB (SCH) NEB ×4 (04:01→21:54)
[2018-02-27] MEDS: DEXMEDETOMIDINE IV PRN ×3 (05:39→18:59)
[2018-02-27] MEDS: SODIUM CHLOR 0.9% IV PRN ×3 (05:39→18:59)
[2018-02-27] MEDS: DILTIAZEM HCL 30 MG TAB PO SCH ×4 (06:00→23:07)
[2018-02-27] MEDS: VANCOMYCIN INJ 1,250 MG in SODIUM CHLOR 0.9% 250 ML INJ 250 ML IV SCH ×2 (06:00→23:08)
[2018-02-27] MEDS: cloNIDine HCL 0.1 MG TAB PO SCH ×3 (06:00→21:40)
[2018-02-27] MEDS: INSULIN ASPART SUPPLEMENTAL SCALE SQ SCH ×4 (06:01→23:10)
[2018-02-27] MEDS: HEPARIN SODIUM - SQ 10,000 UNITS/ML VIAL SQ SCH ×3 (06:01→21:40)
[2018-02-27 06:49] LABS: AUTOMATED NEUTROPHIL # 14.7 TH/MM3 (1.8-7.7); BASOPHIL # 0.2 TH/MM3 (0-0.2); BASOPHIL % 0.9 % (0.0-2.0); EOSINOPHIL # 0.5 TH/MM3 (0-0.4); EOSINOPHIL % 2.8 % (0.0-4.0); HEMATOCRIT 28.7 % (35.0-46.0); HEMOGLOBIN 9.3 GM/DL (11.6-15.3); LYMPH % 7.6 % (9.0-44.0); LYMPHOCYTE # 1.3 TH/MM3 (1.0-4.8); MEAN CELL VOLUME 85.5 FL (80.0-100.0); MEAN CORPUSCULAR HEMOGLOBIN 27.7 PG (27.0-34.0); MEAN CORPUSCULAR HGB CONC 32.4 % (32.0-36.0); MEAN PLATELET VOLUME 7.6 FL (7.0-11.0); MONO % 5.4 % (0.0-8.0); MONOCYTE # 0.9 TH/MM3 (0-0.9); NEUT % 83.3 % (16.0-70.0); PLATELET COUNT 560 TH/MM3 (150-450); RED BLOOD COUNT 3.36 MIL/MM3 (4.00-5.30); WHITE BLOOD COUNT 17.6 TH/MM3 (4.0-11.0)
[2018-02-27 07:14] LABS: ALBUMIN 2.4 GM/DL (3.4-5.0); AST (GOT) 34 U/L (15-37); BICARBONATE 33.6 MEQ/L (21.0-32.0); BLOOD UREA NITROGEN 24 MG/DL (7-18); CHLORIDE 98 MEQ/L (98-107); CREATININE 0.73 MG/DL (0.50-1.00); GLOMERULAR FILTRATION RATE 81 ML/MIN (>89); GLUCOSE,RANDOM 181 MG/DL (74-106); MAGNESIUM 2.5 MG/DL (1.5-2.5); SODIUM (NA) 140 MEQ/L (136-145)
[2018-02-27 07:15] LABS: ALT (GPT) 31 U/L (10-53); PHOSPHORUS 3.8 MG/DL (2.5-4.9)
[2018-02-27 07:17] LABS: ALKALINE PHOSPHATASE 431 U/L (45-117); TOTAL BILIRUBIN ADULT 0.5 MG/DL (0.2-1.0); TOTAL PROTEIN 7.9 GM/DL (6.4-8.2)
[2018-02-27 07:55] LABS: BANDS 1 % (0-6); BASOPHILS 1 % (0-2); LYMPHOCYTES 4 % (9-44); METAMYELOCYTES 1 % (0-1); MONOCYTES 5 % (0-8); MYELOCYTES 1 % (0-0); NEUTROPHIL # MANUAL DIFF 15.5 TH/MM3 (1.8-7.7); POLYS (SEG NEUTROPHILS) 85 % (16-70)
[2018-02-27] MEDS: ASPIRIN 81 MG CHEW TAB CHEW SCH (08:59)
[2018-02-27] MEDS: FAMOTIDINE 20 MG TAB PO SCH ×2 (08:59→20:09)
[2018-02-27] MEDS: SODIUM CHLORIDE 0.9% FLUSH 10 ML FLUSH IV FLUSH PRN (09:00)
[2018-02-27] MEDS: POTASSIUM CHLORIDE 25 MEQ EFFERVESCENT TAB PO SCH (09:00)
[2018-02-27] MEDS: SODIUM CHLORIDE 0.9% FLUSH 10 ML FLUSH IV FLUSH SCH ×2 (09:00→20:09)
[2018-02-27] MEDS: ALBUMIN 25% INJ 50 ML IV SCH ×2 (09:00→21:40)
[2018-02-27] MEDS: DOCUSATE SODIUM 50 MG/SENNA 8.6 MG TAB PO SCH ×2 (09:00→20:10)
[2018-02-27] MEDS: CHLORHEXIDINE 0.12% (ORAL KIT) 15 ML CUP MT SCH ×2 (09:00→20:08)
--- NOTE | 2018-02-27 11:03 | HHI.HCPN ---
Spoke with daughter, Alona, and patient's sister at bedside. Alona reports she spent the night with Ms. Tinoco and saw periods of more alertness. Family expressed Ms. Tinoco is more alert today, following some commands, smiling. Offered emotional support and encouraged them to treasure these moments with her. Overall goals do not appear to have changed. Both daughter Alona and sister verbalize they are really thinking about what Ms. Tinoco would want with consideration of transition to comfort focused care. They are thankful for continued updates from medical specialists regarding prognosis and quality of life. Family reports roe Fregoso is attempting to get a flight back sometime today , hopefully arriving by tomorrow. Family requests another meeting for medical update and goals of care on 02/28. Time TBD pending roe Fregoso's arrival. Family will contact palliative care with a time. Spoke with RN, updated on above conversation and possible family meeting tomorrow. Family has contact information for palliative care. Palliative care will continue to follow throughout hospitalization. Important Contacts: Alona Caballero (daughter and co-health care proxy) [phone] Zenobia Clay (daughter and co-health care proxy) [phone] Zenobia Cifuentes SILVER CHASER, PRINTER HELPER Feb 27, 2018 11:03
--- NOTE | 2018-02-27 11:07 | HHI.CCPN ---
Subjective Remarks/Hospital Course 01/30: 62-year-old female presents for evaluation of increasing shortness of breath and chest pain. She reports 1 week of coughing 3 days of pain in her left chest which radiates to her back, which prompted the visit to the emergency room yesterday. She rates her pain a 6 out of 10. She reports fevers , chills, fatigue, mild nausea. She denies any abdominal pain, vomiting. Patient denies any significant past medical history. Symptom onset was gradual , symptom severity is severe, there are no alleviating factors. Patient states that she has been taking the azithromycin antibiotics that were prescribed to her. She denies any current or historical tobacco use. 01/31: Intubated at 1 AM this morning and placed on mechanical ventilation due to worsening respiratory distress. Currently sedated, orally intubated on mechanical ventilation. 02/01: Remains sedated, orally intubated on mechanical ventilation. Went into A. fib with RVR this morning. Loaded with amiodarone, started on amiodarone drip and given digoxin 0.5 mg IV 02/02: Remains sedated, orally intubated on mechanical ventilation. Right sided pigtail catheter in place with 1+ air leak. Converted to sinus rhythm overnight. Remains on amiodarone gtt. 02/03: Remains sedated, orally intubated on mechanical ventilation. 1+ air leak and right sided pigtail catheter. Tolerating tube feeds. Remains on amiodarone gtt. 02/04: Noted to have pneumothorax on the left side this morning on routine chest x -ray which appeared to be under tension. Right sided pigtail catheter placed by Dr. Peña with reexpansion of lung. Patient remains sedated, orally intubated on mechanical ventilation. 1+ airleak and bilateral chest tubes noted. 02/05: Afebrile. Persistent leukocytosis, bilateral chest tubes continue on wall suction. Chest x-ray pending this a.m.. Patient scheduled for GRANT today, discussed with Dr. Vázquez. Patient continues on amiodarone infusion with sinus rhythm. Postprocedure GRANT,this afternoon, the patient became extremely agitated, noted significant increase in subcu emphysema, peak pressures 50's, O2 saturation significantly decreased to 78-80 %. Stat chest x-ray performed patient was noted to have a significant right pneumothorax. 20 Greek right chest tube placement emergently, with increase in O2 saturation decrease in peak inspiratory pressures. 02/06: Afebrile. Patient with persistent bilateral pneumothoraces, with diffuse bilateral infiltrates and massive SQ emphysema. O2 requirement significantly increased during the night, PIP 38-44. 28 F chest tubes were placed bilaterally with resolution of left pneumothorax and minimization of right pneumothorax, and improved oxygenation. 02/07: TMax 100.1 Chest tubes remain on suction. Resolution of pneumothoraces, continued extensive SQ emphysema. Persistent leukocytosis noted. FiO2 weaned to 50%. 02/08: Late entry note patient seen at 1250. Attempts at CPAP trials, unsuccessful this morning. FiO2 decreased 50%, with adequate oxygenation. 02/09: Afebrile. The patient was transitioned to CPAP trials with pressure support of 22/8. FiO2 currently at 55% continuing to wean. Patient noted with positive fluid balance Lasix 40 mg IV now, patient is initiated on Lasix 40 daily. Patient with positive air leak in chest tubes #1-28 Greek right and #3 pigtail left, both at 2+. Sedation vacation initiated early this a.m. patient neurologically intact. Patient continues on moderate sedation for CPAP to maintain ventilator synchrony plan for transitioning to Precedex. Noted improvement with subcu emphysema. Extensive discussion with patient's daughter regarding a possibility of a tracheostomy if unsuccessful with ventilator weaning process. 02/10: Subcutaneous emphysema has worsened overnight per RN who took care of the patient yesterday, now extending to the upper chest left neck and to the left side of the face including left eyelids. No increase in FiO2 requirement currently on 55%. I have reduced inspiratory pressure from 32 to 28. FiO2 reduced to 50%. Will check a repeat chest x-ray in afternoon if needed. Will request CT surgical evaluation for persistent subcutaneous emphysema despite 2 chest tubes bilaterally 02/11 Patient is sedated with Diprivan, Versed and Fentanyl drips. T: 101.[address] guided chest tube placement by IR today 02/12 No events overnight. Remains sedated and intubated. Afebrile. On PC/AC with PEEP: 8 and FIO2 40%. 02/13 Patient remains intubated and heavily sedated. Afebrile. Repeat CT chest yesterday showed loculated anterior left pneumothorax has resolved. A small left pleural effusion remains present and the 2 left chest tubes appear to be in good position to drain the fluid. Significant improvement in the bilateral chest wall subcutaneous emphysema. 02/14 Patient remains sedated and intubated. Afebrile. On Bumex drip 0.5mg/hr. 02/15 Patient remains intubated and sedated, On Bumex drip 0.5mg/hr with good urine output. T:100.1 02/16 Patient remains sedated and intubated. Off Bumex drip. Afebrile. 02/17 Remains intubated and sedated with Diprivan and Fentanyl drips. Afebrile. For trach tomorrow. 02/18: Trach anticipated for today. Remains sedated. Family at the bedside updated. Coags are normal 02/19: Tracheostomy performed yesterday, patient now with increasing oxygen requirement more critical. Currently on 70% FiO2. A stat CT of the chest ordered by ID shows persistent consolidation multilobar with multiple cavitations. Family updated at the bedside. At this time do not appear to be adequately responding to treatment 02/20: Remains critical with high FiO2 and PEEP requirements. CT chest yesterday showed persistent consolidation and cavitation and a moderate-sized left pleural effusion. Sputum culture again growing MRSA. White count increased to 19,000 today. Left pleural effusion need to be drained, consult IR for CT guided chest tube, due to worsening sepsis 02/21: Patient remains intubated sedated and critically ill. PEEP requirement still remains high and FiO2 is at 50%. Radiology to place new large bore pigtail chest tube for left pleural effusion which is loculated. Will remove the small pigtail chest tube after new one is placed. On sedation hold patient appears to be weak on left side. Check CT of the head also. Grossly fluid overloaded. We will start scheduled dialysis with IV Lasix. Teflaro added to Zyvox yesterday 02/22: Continues to be requiring high oxygen currently at 50% PEEP at 8. New large bore pigtail chest tube placed on the left side yesterday with 200 mL output since placement. Bilateral previous pigtails to waterseal plan to remove the left original pigtail chest tube today. Patient continues to be encephalopathy 02/23: Remains on full ventilator support diuresing well with Lasix but still significantly fluid overloaded. Increase Lasix to 40 every 6 hours, add Diamox for 3 days. Continue chest tubes to suction. Fio2 reduced to 40% PEEP down to 10. MRI and EEG ordered due to persistent encephalopathy 02/24: No acute change in neurological status. EEG in progress. MRI pending. Right upper lobe pneumothorax resolved. Chest tubes 4 remain on -40 cm of water pressure plan for left upper and lower chest tube to be placed to waterseal today. Tracheal sutures in situ area clean dry and intact plan for suture removal of trach site tomorrow. Definition of goals of care to be discussed with palliative/ family conference scheduled for Sunday 02/25. 02/25: Remains on full vent support, PEEP 8, FiO2 50%. Remains on propofol and fentanyl. CXR remains stable. Tolerated PSV for 2 hours yesterday. Start Precedex and clonidine to facilitate more aggressive SBT, change fentanyl to patch. MRI negative for CVA, EEG encephalopathy. 02/26: No events over the night. Patient remains poorly responsive. No change in oxygenation, tolerating CPAP 15/8 and 55% O2. T-max of 99.1. I/O 3368/ 4580. Sister present at bedside. 2 right-sided chest tubes on suction, #4 with continuous air leak, 2 left-sided chest tubes on waterseal with no leak. 02/27: Patient did well over the night. This morning patient is more awake, attempting to follow some simple commands. T-max of 98.7, I/O 3267/4525. Sister and daughter present at bedside. Two right-sided chest tubes on suction , #4 with small air leak, 2 left-sided chest tubes on waterseal with no leak. Objective Vital Signs Date Time Temp Pulse Resp B/P (MAP) Pulse Ox O2 Delivery O2 Flow Rate FiO2 02/27/18 10:00 78 02/27/18 08:00 50 02/27/18 08:00 98.8 31 153/76 (101) 97 Intake and Output 02/27/18 02/27/18 02/28/18 08:00 16:00 00:00 Intake Total 989 ml Output Total 2250 ml Balance -1261 ml Result Diagram: 02/27/18 0547 02/27/18 0547 Imaging Last 24 hours Impressions Chest X-Ray 02/26/18 0600 Signed Impressions: Service Date/Time: Monday, February 26, 2018 03:24 - CONCLUSION: 1. 2 chest tubes present bilaterally with a small right apical pneumothorax present. Air space disease and loculated fluid on the left are stable. Everett Ng MD Last Impressions Chest X-Ray 02/17/18 0000 Signed Impressions: Service Date/Time: Saturday, February 17, 2018 04:00 - CONCLUSION: 1. Patchy alveolar disease characteristic of edema or pneumonia. There has been no significant change when compared to the prior exam. To Vaughn MD Chest CT 02/12/18 1334 Signed Impressions: Service Date/Time: Monday, February 12, 2018 14:07 - CONCLUSION: 1. The loculated anterior left pneumothorax has resolved. A small left pleural effusion remains present and the 2 left chest tubes appear to be in good position to drain the fluid. 2. Significant improvement in the bilateral chest wall subcutaneous emphysema. 3. Stable severe kinking of the large bore right chest tube. This chest tube also extends into the fissure. Given these 2 findings, this likely not providing any significant suction. Consider removal. 4. Stable severe bilateral airspace consolidation with multifocal areas of cavitation. Michael Perea MD Liver Ultrasound 02/11/18 0000 Signed Impressions: Service Date/Time: Sunday, February 11, 2018 09:34 - CONCLUSION: Nondiagnostic examination CT scan is recommended for further evaluation if clinically indicated. To Vaughn MD Neck CT 02/10/18 0000 Signed Impressions: Service Date/Time: Saturday, February 10, 2018 14:57 - CONCLUSION: 1. Extensive subcutaneous edema in the neck which has dissected cephalad from the chest and is worse on the left side. 2. Support apparatus as above. See chest CT report for evaluation of lungs. 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 No adenopathy. Everett Ng MD Procedures 02/05- Right emergent 20 F chest tube placement 02/06: Left 28 Greek chest tube placement, right chest tube replacement 28 Greek Objective Remarks General - middle-aged lady, more awake, ill-appearing, weak HEENT - pupils equal, reactive, sclerae anicteric, neck supple, no nuchal rigidity, neck veins not distended, no carotid bruit, trach in place, dry mucous membranes CV - regular S1, S2, no murmurs Chest - scattered coarse breath sounds b/l, decrease air entry at the bases, no wheezes Abdomen - soft, non-tender, non-distended, BS present, no hepatomegaly, no splenomegaly Skin - no rashes, no cyanosis Extremities - warm and well perfused, 1+ edema, + peripheral pulses, no clubbing Neuro - more awake, opens eyes to voice stimuli, follows some commands, opens mouth, blinks to command, shows thumbs up with right hand, attempts to wiggle toes A/P Assessment and Plan Neuro: Acute metabolic encephalopathy Continue Precedex and clonidine Scheduled oxycodone for pain and fentanyl as needed Daily sedation vacation, as tolerated Pulm: Acute hypoxemic respiratory failure -improved O2 requirements, on 55% O2 and PEEP of 8 MRSA pneumonia, with multiple cavitations and consolidation ARDS Moderate sized L pleural effusion s/p 14 F chest tube COPD Bilateral pneumothorax, status post large bore chest tube Persistent small right apical pneumothorax Post Influenza pneumonia Continue vent support keep sats >90%, s/p Trach 02/18 On PRVC RR 16, TV 500, IT:1.0, PEEP: 8, FIO2: 50%. Daily SBT with high pressure support Patient synchronized with the ventilator and no auto PEEP CT chest on 02/19/2018 showed bilateral consolidation extensive, cavitating lesions, moderate loculated left effusion Fluid studies sent 02/22/2018 not consistent with empyema Bilateral pigtail catheters and [address](4 total)-has minimal ouput, but maintain all chest tubes due to pneumo re-expansion Moderate left-sided pleural effusion, new left pigtail chest tube placed by radiology 02/21/2018 , but with only partial drainage Thoracic surgery has followed- Dr. Thornton-not planning on any surgical intervention DuoNeb scheduled and when necessary. Continue right-sided chest tubes to suction and left-sided chest tubes to waterseal Renal: Acute kidney injury-resolved Fluid overload -Maintain Alexandre -Monitor renal function, I/O's, electrolytes replacement per protocol. -Continue diuresis Cardiovascular: A. fib with RVR (converted to NSR 02/02) Significantly fluid overloaded -02/05 amiodarone infusion discontinued. -02/05 GRANT -no valvular vegetations. EF 55-60%, trace MVR, mild TVR, PAP 35 -On Cardizem 60mg Q6, Lopressor 25mg Q12 GI Elevated LFTs ( trending down) -Hepatitis profile: Negative. US liver: non-diagnostic study -Tube feeds Jevity 1.5 -On Pepcid 20mg BID -J tube placement in OR this week per gen surgery if family wants to pursue aggressive care ID: MRSA, Enterobacter pneumonia MRSA Bacteremia -Antibiotics per ID. Currently on vancomycin -Monitor for signs of new infections ( Fever, WBC) -ID- Dr. Singleton following Endocrine: Hyperglycemia Medium scale sliding scale insulin dosing Glucose monitoring per ICU protocol Hematology: Anemia -improved H&H post transfusion Unclear etiology, currently being transfused DVT GI prophylaxis - Teds SCDs - Subcutaneous heparin - Pepcid Lines: peripheral IV's. Palliative care is following. 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 Code status: Alternative code I discussed in detail patient's condition with sister and daughter present at bedside. Vinicio Carvalho MD Feb 27, 2018 11:07
--- NOTE | 2018-02-27 13:03 | HHI.IDPN ---
Subjective Subjective Remarks better neuro tirado she is now awake and follows commands she did not tolerate CPAP on AC PEEP 8, FiO2 55%' no airleak or drainage form her CTs 02/06 Antibiotics vancomycin Lines Line sites with no e.o infection Past Medical History Gastric bypass Tonsillectomy Allergies: Coded Allergies: No Known Allergies (Unverified , 01/30/18) Objective . Vital Signs Date Time Temp Pulse Resp B/P (MAP) Pulse Ox O2 Delivery O2 Flow Rate FiO2 02/27/18 11:54 96 55 02/27/18 10:00 78 02/27/18 08:00 50 02/27/18 08:00 66 02/27/18 08:00 98.8 76 31 153/76 (101) 97 02/27/18 08:00 97 55 02/27/18 06:00 73 02/27/18 04:04 26 02/27/18 04:01 95 55 02/27/18 04:00 55 02/27/18 04:00 75 02/27/18 04:00 75 21 137/68 (91) 96 02/27/18 02:00 69 02/27/18 01:00 96 55 02/27/18 00:00 79 02/27/18 00:00 55 02/27/18 00:00 98.7 79 22 113/58 (76) 95 02/26/18 22:00 82 02/26/18 21:30 97 55 02/26/18 20:00 55 02/26/18 20:00 82 02/26/18 20:00 98.6 82 24 106/58 (74) 97 02/26/18 18:00 88 02/26/18 16:00 98.5 85 27 118/75 (89) 94 02/26/18 16:00 55 02/26/18 16:00 85 02/26/18 15:54 94 55 02/26/18 14:00 80 02/26/18 13:06 97 55 . Laboratory Tests Test 02/26/18 04:23 02/27/18 05:47 White Blood Count 19.1 TH/MM3 17.6 TH/MM3 Red Blood Count 2.27 MIL/MM3 3.36 MIL/MM3 Hemoglobin 6.3 GM/DL 9.3 GM/DL Hematocrit 19.6 % 28.7 % Mean Corpuscular Volume 86.4 FL 85.5 FL Mean Corpuscular Hemoglobin 27.6 PG 27.7 PG Mean Corpuscular Hemoglobin Concent 32.0 % 32.4 % Red Cell Distribution Width 16.2 % 16.0 % Platelet Count 462 TH/MM3 560 TH/MM3 Mean Platelet Volume 7.8 FL 7.6 FL Neutrophils (%) (Auto) 85.5 % 83.3 % Lymphocytes (%) (Auto) 7.0 % 7.6 % Monocytes (%) (Auto) 5.4 % 5.4 % Eosinophils (%) (Auto) 1.6 % 2.8 % Basophils (%) (Auto) 0.5 % 0.9 % Neutrophils # (Auto) 16.3 TH/MM3 14.7 TH/MM3 Lymphocytes # (Auto) 1.3 TH/MM3 1.3 TH/MM3 Monocytes # (Auto) 1.0 TH/MM3 0.9 TH/MM3 Eosinophils # (Auto) 0.3 TH/MM3 0.5 TH/MM3 Basophils # (Auto) 0.1 TH/MM3 0.2 TH/MM3 CBC Comment AUTO DIFF AUTO DIFF Differential Comment AUTO DIFF CONFIRMED FINAL DIFF MANUAL Stomatocytes 1+ Differential Total Cells Counted 100 Neutrophils % (Manual) 85 % Band Neutrophils % 1 % Lymphocytes % 4 % Monocytes % 5 % Eosinophils % 2 % Basophils % 1 % Neutrophils # (Manual) 15.5 TH/MM3 Metamyelocytes 1 % Myelocytes 1 % Platelet Estimate HIGH Platelet Morphology Comment NORMAL Laboratory Tests Test 02/26/18 04:23 02/27/18 05:47 Blood Urea Nitrogen 24 MG/DL 24 MG/DL Creatinine 0.74 MG/DL 0.73 MG/DL Random Glucose 166 MG/DL 181 MG/DL Total Protein 6.9 GM/DL 7.9 GM/DL Albumin 1.9 GM/DL 2.4 GM/DL Calcium Level 8.8 MG/DL 9.0 MG/DL Phosphorus Level 2.9 MG/DL 3.8 MG/DL Magnesium Level 2.2 MG/DL 2.5 MG/DL Alkaline Phosphatase 290 U/L 431 U/L Aspartate Amino Transf (AST/SGOT) 24 U/L 34 U/L Alanine Aminotransferase (ALT/SGPT) 24 U/L 31 U/L Total Bilirubin 0.4 MG/DL 0.5 MG/DL Sodium Level 138 MEQ/L 140 MEQ/L Potassium Level 3.2 MEQ/L 3.6 MEQ/L Chloride Level 98 MEQ/L 98 MEQ/L Carbon Dioxide Level 32.4 MEQ/L 33.6 MEQ/L Anion Gap 8 MEQ/L 8 MEQ/L Estimat Glomerular Filtration Rate 80 ML/MIN 81 ML/MIN Imaging Last Impressions Chest X-Ray 02/26/18 0600 Signed Impressions: Service Date/Time: Monday, February 26, 2018 03:24 - CONCLUSION: 1. 2 chest tubes present bilaterally with a small right apical pneumothorax present. Air space disease and loculated fluid on the left are stable. Everett Ng MD Brain MRI 02/24/18 0000 Signed Impressions: Service Date/Time: Saturday, February 24, 2018 12:42 - CONCLUSION: Negative exam with no evidence of hemorrhage, mass infarction. Kevin Tello MD Head CT 02/21/18 0000 Signed Impressions: Service Date/Time: February 14:24 - CONCLUSION: 1. Bilateral mastoiditis. 2. Otherwise negative. No acute intracranial process to explain current clinical symptoms Gino Hernandez MD Chest Tube Insertion 02/21/18 0000 Signed Impressions: Service Date/Time: February 14:36 - CONCLUSION: Uncomplicated chest tube placement as above. Karri Muhammad MD Chest CT 02/19/18 0000 Signed Impressions: Service Date/Time: Monday, February 19, 2018 13:36 - CONCLUSION: 1. Multilobar consolidation with multiple cavities, not significantly changed. Differential possibilities are again noted to include septic emboli, TB and fungal etiologies including necrotizing process and autoimmune process such as Britton's. 2. Small right anterobasilar pneumothorax. Right-sided chest tube likely nonfunctional. 3. 2 left-sided chest tubes with loculated left pleural effusion, slightly more prominent on current study. Karri Muhammad MD Abdomen X-Ray 02/18/18 0000 Signed Impressions: Service Date/Time: Sunday, February 18, 2018 15:47 - CONCLUSION: 1. Suction type NGT in the region of the GE junction. Romeo Espinoza MD Liver Ultrasound 02/11/18 0000 Signed Impressions: Service Date/Time: Sunday, February 11, 2018 09:34 - CONCLUSION: Nondiagnostic examination CT scan is recommended for further evaluation if clinically indicated. To Vaughn MD Neck CT 02/10/18 0000 Signed Impressions: Service Date/Time: Saturday, February 10, 2018 14:57 - CONCLUSION: 1. Extensive subcutaneous edema in the neck which has dissected cephalad from the chest and is worse on the left side. 2. Support apparatus as above. See chest CT report for evaluation of lungs. 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 No adenopathy. Everett Ng MD Physical Exam CONSTITUTIONAL/GENERAL: On the vent SKIN: No jaundice, rashes, or lesions. Ecchymoses on upper extremities. Skin temperature appropriate. generalized edema previous Sq emphysema resolved HEAD: Atraumatic. Normocephalic. EYES: Pupils equal and round and reactive. No scleral icterus. No injection or drainage. ENT: No nasal discharge, orally intubated NECK: Supple, nontender. CARDIOVASCULAR: Regular rate and rhythm without murmurs, gallops, or rubs. RESPIRATORY/CHEST: Symmetric, unlabored respirations. Rhonchi b/l. CTx2 on R and CT x 2 on the L GASTROINTESTINAL: Abdomen soft, nondistended. Obese. No reaction to palpation , not guarding. GENITOURINARY: Without palpable bladder distension. Alexandre catheter in place. MUSCULOSKELETAL: Extremities without clubbing, cyanosis, + 3 diffuse tight edema. . NEUROLOGICAL: awake, opens eyes, + eye contact, + follows commands intermittely mostly for family members does not track, eyes closed not following commands PSYCHIATRIC: calm LINE: no evidence of infection Assessment & Plan Remarks IMPRESSION MRSA PNA, necrotizing Multiple b/l pneumothoraces ? postinfluenza PNA Loculated hydropneumothorax: ? empyema Acute VDRF failure to weaning sp trach High grade , sustained MRSA bacteremia GRANT negative Severe leukocytosis and bandemia New PNA, Enterobacter (panS) along with MRSA Empyema and multiple cavitary lesions - essentaially necrotizing PNA - no e/o endocarditis - sp multiple CTs placement MS change : finally shows improvement of her encephalopathy Prognosis is now guarded with improving neuro status PLAN cont vancomycin repeat sputum clx dw sister @ b/s dw Dr Rene Singleton,Carlene Torres MD Feb 27, 2018 13:03
--- NOTE | 2018-02-27 15:18 | HHI.HCPN ---
Reason for visit a. To assist with evaluation and management of symptoms including: dyspnea; encephalopathy, pain b. To assist medical decision maker(s) with: better understanding of current medical conditions; weighing benefits/burdens of medical treatment options; making medical treatment decisions. . Subjective/Interval History Patient sleeping soundly at time of my visit. However, earlier today carpenter supervisor, nurse , and family noted patient to be awake, smiled, followed some simple commands. She tolerated CPAP for about 4 hours this AM. Back on vent at time of my visit. Precedex still running. Has not received PRN lorazepam or PRN fentanyl or PRN morphine. . Family/friend interactions Sister at bedside at time of my visit. Discussed patient's encephalopathy and the importance of her now being able to wake up and follow some commands. . Advance Directives Living Will: Never completed Health Care Surrogate: Never completed Durable Power of Loan Coordinator: Never completed Advance Directive Specifics Date completed: Patient has never completed an advanced directive. . Health Care Surrogate(s): There is no written designation of healthcare surrogate. . Documented care wishes: There is no written documentation of healthcare goals/preferences. . Objective Vital Signs Date Time Temp Pulse Resp B/P (MAP) Pulse Ox O2 Delivery O2 Flow Rate FiO2 02/27/18 11:54 96 55 02/27/18 10:00 78 02/27/18 08:00 50 02/27/18 08:00 66 02/27/18 08:00 98.8 76 31 153/76 (101) 97 02/27/18 08:00 97 55 02/27/18 06:00 73 02/27/18 04:04 26 02/27/18 04:01 95 55 02/27/18 04:00 55 02/27/18 04:00 75 02/27/18 04:00 75 21 137/68 (91) 96 02/27/18 02:00 69 02/27/18 01:00 96 55 02/27/18 00:00 79 02/27/18 00:00 55 02/27/18 00:00 98.7 79 22 113/58 (76) 95 02/26/18 22:00 82 02/26/18 21:30 97 55 02/26/18 20:00 55 02/26/18 20:00 82 02/26/18 20:00 98.6 82 24 106/58 (74) 97 02/26/18 18:00 88 02/26/18 16:00 98.5 85 27 118/75 (89) 94 02/26/18 16:00 55 02/26/18 16:00 85 02/26/18 15:54 94 55 Intake & Output 02/27/18 02/27/18 07:00 19:00 Intake Total 989 ml Output Total 2250 ml Balance -1261 ml IV Total 250 ml Tube Feeding 669 ml Other 70 ml Output Urine Total 2250 ml # Bowel Movements 0 . Physical Exam CONSTITUTIONAL/GENERAL: This is an obese patient in the medical intensive care unit bed. Sleeping soundly. TUBES/LINES/DRAINS: Tracheostomy; bilateral chest tubes x2; peripheral IV; sequential compressive devices. NG tube. SKIN: Pale. No jaundice, rashes. Ecchymoses on upper extremities. No wounds seen anteriorly. Skin temperature appropriate. Not diaphoretic. EYES: Not examined. ENT: Unable to evaluate hearing secondary to clinical condition. Nose without bleeding or purulent drainage. Moist oral mucosa. NECK: Tracheostomy midline. CARDIOVASCULAR: Regular rate/rhythm without murmurs, gallops, or rubs. RESPIRATORY/CHEST: Bilateral chest tubes. Symmetric respirations on vent. Decreased air movement at bases. Lungs clear. GASTROINTESTINAL: Abdomen obese, large, soft. Active bowel sounds. GENITOURINARY: Without palpable bladder distension. Alexandre catheter in place. MUSCULOSKELETAL: Extremities without clubbing, cyanosis. NEUROLOGICAL: Sleeping soundly PSYCHIATRIC: Unable to assess due to level of responsiveness . Diagnostic Tests Laboratory Laboratory Tests Test 02/25/18 06:13 02/26/18 04:23 02/27/18 05:47 White Blood Count 21.1 TH/MM3 (4.0-11.0) 19.1 TH/MM3 (4.0-11.0) 17.6 TH/MM3 (4.0-11.0) Red Blood Count 2.92 MIL/MM3 (4.00-5.30) 2.27 MIL/MM3 (4.00-5.30) 3.36 MIL/MM3 (4.00-5.30) Hemoglobin 7.9 GM/DL (11.6-15.3) 6.3 GM/DL (11.6-15.3) 9.3 GM/DL (11.6-15.3) Hematocrit 25.0 % (35.0-46.0) 19.6 % (35.0-46.0) 28.7 % (35.0-46.0) Mean Corpuscular Volume 85.4 FL (80.0-100.0) 86.4 FL (80.0-100.0) 85.5 FL (80.0-100.0) Mean Corpuscular Hemoglobin 27.2 PG (27.0-34.0) 27.6 PG (27.0-34.0) 27.7 PG (27.0-34.0) Mean Corpuscular Hemoglobin Concent 31.8 % (32.0-36.0) 32.0 % (32.0-36.0) 32.4 % (32.0-36.0) Red Cell Distribution Width 16.0 % (11.6-17.2) 16.2 % (11.6-17.2) 16.0 % (11.6-17.2) Platelet Count 537 TH/MM3 (150-450) 462 TH/MM3 (150-450) 560 TH/MM3 (150-450) Mean Platelet Volume 7.9 FL (7.0-11.0) 7.8 FL (7.0-11.0) 7.6 FL (7.0-11.0) Neutrophils (%) (Auto) 86.8 % (16.0-70.0) 85.5 % (16.0-70.0) 83.3 % (16.0-70.0) Lymphocytes (%) (Auto) 6.1 % (9.0-44.0) 7.0 % (9.0-44.0) 7.6 % (9.0-44.0) Monocytes (%) (Auto) 4.6 % (0.0-8.0) 5.4 % (0.0-8.0) 5.4 % (0.0-8.0) Eosinophils (%) (Auto) 2.1 % (0.0-4.0) 1.6 % (0.0-4.0) 2.8 % (0.0-4.0) Basophils (%) (Auto) 0.4 % (0.0-2.0) 0.5 % (0.0-2.0) 0.9 % (0.0-2.0) Neutrophils # (Auto) 18.3 TH/MM3 (1.8-7.7) 16.3 TH/MM3 (1.8-7.7) 14.7 TH/MM3 (1.8-7.7) Lymphocytes # (Auto) 1.3 TH/MM3 (1.0-4.8) 1.3 TH/MM3 (1.0-4.8) 1.3 TH/MM3 (1.0-4.8) Monocytes # (Auto) 1.0 TH/MM3 (0-0.9) 1.0 TH/MM3 (0-0.9) 0.9 TH/MM3 (0-0.9) Eosinophils # (Auto) 0.5 TH/MM3 (0-0.4) 0.3 TH/MM3 (0-0.4) 0.5 TH/MM3 (0-0.4) Basophils # (Auto) 0.1 TH/MM3 (0-0.2) 0.1 TH/MM3 (0-0.2) 0.2 TH/MM3 (0-0.2) CBC Comment AUTO DIFF AUTO DIFF AUTO DIFF Differential Total Cells Counted 100 100 Neutrophils % (Manual) 81 % (16-70) 85 % (16-70) Band Neutrophils % 2 % (0-6) 1 % (0-6) Lymphocytes % 6 % (9-44) 4 % (9-44) Monocytes % 5 % (0-8) 5 % (0-8) Eosinophils % 3 % (0-4) 2 % (0-4) Basophils % 2 % (0-2) 1 % (0-2) Neutrophils # (Manual) 17.7 TH/MM3 (1.8-7.7) 15.5 TH/MM3 (1.8-7.7) Metamyelocytes 1 % (0-1) 1 % (0-1) Differential Comment FINAL DIFF MANUAL AUTO DIFF CONFIRMED FINAL DIFF MANUAL Platelet Estimate HIGH (NORMAL) HIGH (NORMAL) Platelet Morphology Comment NORMAL (NORMAL) NORMAL (NORMAL) Hematology Comments Blood Urea Nitrogen 13 MG/DL (7-18) 24 MG/DL (7-18) 24 MG/DL (7-18) Creatinine 0.50 MG/DL (0.50-1.00) 0.74 MG/DL (0.50-1.00) 0.73 MG/DL (0.50-1.00) Random Glucose 163 MG/DL (74-106) 166 MG/DL (74-106) 181 MG/DL (74-106) Calcium Level 9.0 MG/DL (8.5-10.1) 8.8 MG/DL (8.5-10.1) 9.0 MG/DL (8.5-10.1) Magnesium Level 2.2 MG/DL (1.5-2.5) 2.2 MG/DL (1.5-2.5) 2.5 MG/DL (1.5-2.5) Sodium Level 139 MEQ/L (136-145) 138 MEQ/L (136-145) 140 MEQ/L (136-145) Potassium Level 3.5 MEQ/L (3.5-5.1) 3.2 MEQ/L (3.5-5.1) 3.6 MEQ/L (3.5-5.1) Chloride Level 95 MEQ/L (98-107) 98 MEQ/L (98-107) 98 MEQ/L (98-107) Carbon Dioxide Level 33.2 MEQ/L (21.0-32.0) 32.4 MEQ/L (21.0-32.0) 33.6 MEQ/L (21.0-32.0) Anion Gap 11 MEQ/L (5-15) 8 MEQ/L (5-15) 8 MEQ/L (5-15) Estimat Glomerular Filtration Rate 125 ML/MIN (>89) 80 ML/MIN (>89) 81 ML/MIN (>89) Stomatocytes 1+ (NORMAL) Total Protein 6.9 GM/DL (6.4-8.2) 7.9 GM/DL (6.4-8.2) Albumin 1.9 GM/DL (3.4-5.0) 2.4 GM/DL (3.4-5.0) Phosphorus Level 2.9 MG/DL (2.5-4.9) 3.8 MG/DL (2.5-4.9) Alkaline Phosphatase 290 U/L (45-117) 431 U/L (45-117) Aspartate Amino Transf (AST/SGOT) 24 U/L (15-37) 34 U/L (15-37) Alanine Aminotransferase (ALT/SGPT) 24 U/L (10-53) 31 U/L (10-53) Total Bilirubin 0.4 MG/DL (0.2-1.0) 0.5 MG/DL (0.2-1.0) Myelocytes 1 % (0-0) . Result Diagram: 02/27/18 0547 02/27/18 0547 Microbiology Microbiology Date/Time Source Procedure Growth Status 02/19/18 14:03 Blood Peripheral Aerobic Blood Culture - Final NO GROWTH IN 5 DAYS Complete 02/19/18 14:03 Blood Peripheral Anaerobic Blood Culture - Final NO GROWTH IN 5 DAYS Complete 02/22/18 14:19 Fluid Pleural Fluid Fungal Smear - Final NO FUNGAL ELEMENTS SEEN. Resulted 02/22/18 14:19 Fluid Pleural Fluid Fungal Culture Pending Resulted 02/10/18 13:53 Genital Vaginal Genital Culture - Final Klebsiella Pneumoniae Zelda Albicans Complete 02/17/18 18:00 Sputum Endotracheal Gram Stain - Final Complete 02/17/18 18:00 Sputum Culture - Final S. Aureus Mrsa Complete 01/31/18 07:42 Urine Catheterized Urine Urine Culture - Final NO GROWTH IN 48 HOURS. Complete . Imaging Last Impressions Chest X-Ray 02/26/18 0600 Signed Impressions: Service Date/Time: Monday, February 26, 2018 03:24 - CONCLUSION: 1. 2 chest tubes present bilaterally with a small right apical pneumothorax present. Air space disease and loculated fluid on the left are stable. Everett Ng MD Brain MRI 02/24/18 0000 Signed Impressions: Service Date/Time: Saturday, February 24, 2018 12:42 - CONCLUSION: Negative exam with no evidence of hemorrhage, mass infarction. Kevin Tello MD Head CT 02/21/18 0000 Signed Impressions: Service Date/Time: February 14:24 - CONCLUSION: 1. Bilateral mastoiditis. 2. Otherwise negative. No acute intracranial process to explain current clinical symptoms Gino Hernandez MD Chest Tube Insertion 02/21/18 0000 Signed Impressions: Service Date/Time: February 14:36 - CONCLUSION: Uncomplicated chest tube placement as above. Karri Muhammad MD Chest CT 02/19/18 0000 Signed Impressions: Service Date/Time: Monday, February 19, 2018 13:36 - CONCLUSION: 1. Multilobar consolidation with multiple cavities, not significantly changed. Differential possibilities are again noted to include septic emboli, TB and fungal etiologies including necrotizing process and autoimmune process such as Britton's. 2. Small right anterobasilar pneumothorax. Right-sided chest tube likely nonfunctional. 3. 2 left-sided chest tubes with loculated left pleural effusion, slightly more prominent on current study. Karri Muhammad MD Abdomen X-Ray 02/18/18 0000 Signed Impressions: Service Date/Time: Sunday, February 18, 2018 15:47 - CONCLUSION: 1. Suction type NGT in the region of the GE junction. Romeo Espinoza MD Liver Ultrasound 02/11/18 0000 Signed Impressions: Service Date/Time: Sunday, February 11, 2018 09:34 - CONCLUSION: Nondiagnostic examination CT scan is recommended for further evaluation if clinically indicated. oT Vaughn MD Neck CT 02/10/18 0000 Signed Impressions: Service Date/Time: Saturday, February 10, 2018 14:57 - CONCLUSION: 1. Extensive subcutaneous edema in the neck which has dissected cephalad from the chest and is worse on the left side. 2. Support apparatus as above. See chest CT report for evaluation of lungs. 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 No adenopathy. Everett Ng MD . Procedures * 01/31/18 -Intubation/mechanical ventilation right subclavian * Central line placement * Bilateral chest tube placement * Transesophageal echo * 02/18/18 -tracheostomy . Assessment and Plan Disease Oriented Problem List: (1) PNA (pneumonia) Comment: MRSA + Enterobacter (2) Respiratory failure (3) ARDS (adult respiratory distress syndrome) (4) Sepsis Comment: MRSA (5) Anemia (6) Hypoalbuminemia (7) Bilateral pneumothoraces Comment: Recurrent and multiple pneumothoraces . (8) ARF (acute renal failure) Comment: resolved (9) Encephalopathy Symptom Scale: (1) Pain 0-10 Scale: Unable to quantify Comment: No known prehospitalization pain syndromes. Current sources of discomfort might include trach; NG tube; vascular access lines; restraints; Alexandre catheter; chest tubes; prolonged bedbound status. . (2) Dyspnea 0-10 Scale: Unable to quantify Comment: Patient with underlying pneumonia and bilateral pneumothoraces. Dyspnea currently managed with ventilatory support. (3) Encephalopathy 0-10 Scale: Unable to quantify Comment: source of prolonged encephalopathy is unclear -- metabolic? durgs? hypoxic? Appears to be improving after change from propofol+ iv fentanyl to Precedex. . Pertinent Non-Medical Issues Psychosocial: Has a male partner . She normally lives with him in a manufactured home. He is a smoker. Her 2 daughters and sister come in from [place] regularly . Spiritual: Patient is anglican anabaptism. Starting Gate Driver visits would be appreciated. Legal: There are no advance directives. Without written designation of a healthcare surrogate, proxy decision making would fall to both adult daughters. Ethical issues impacting care: Patient is currently incapacitated to make her own medical decisions. It is unclear if/when she will become capacitated to do so. . Important Contacts Alona Caballero (daughter and co-health care proxy) [phone] Zenobia Clay (daughter and co-health care proxy) [phone] Brett Mackay (boyfriend -- NO DECISION MAKING RIGHTS unless there is written documentation saying otherwise) [phone] . Prognosis On the one hand, other than her morbid obesity, this patient has very few health problems and has managed to stay out of the hospital. Ordinarily, we would expect her to respond well to treatment and improve. This patient declined incredibly quickly and has very severe respiratory disease in spite of the fact that she has no known underlying chronic respiratory illness.She has multiple pneumothoraces. She has developed Enterobacter pneumonia on top of her MRSA pneumonia. Patient remains ventilator dependent at this time status post tracheostomy now over 30 days since admission. Encephalopathy has been persistent but as of 02/27/18 now for the first time appears to be lifting. . If encephalopathy continues to improve and we are able to extend CPAP trials, chances for meaningful recovery improve. . Code Status: Alternative Code Plan == Code Status: ALT CODE (no defibrillation; no chest compression) == Medical Decision Making: Patient is currently incapacitated to make her own healthcare decisions. It is unclear if/when she will recover capacity to do so. Since there is no written designation of healthcare surrogacy that we are aware of, proxy decision making would fall to her 2 adult children -- Alona Caballero and Zenobia Clay. They both have accepted this role. == Goals of medical treatment: Goals of treatment remain aggressive short of no chest compressions or defibrillation. Patient's daughters acting as healthcare proxy decision makers have elected to continue aggressive management ; however, requesting to put on hold J-tube placement at this time. Reviewed likely illness trajectory with anticipated prolonged hospitalization and rehab if patient survives this hospitalization. Reviewed that patient remains at a very high risk of further complications, continued decline and . == Symptoms: * Dyspnea: Patient with underlying pneumonia and bilateral pneumothoraces. Dyspnea currently managed with ventilatory support. Bilateral chest tubes x2 in place. Patient status post tracheostomy on 02/18, Ongoing CPAP trials. No further recommendations at this time. * Pain: No known pre-hospitalization pain syndromes. Current sources of discomfort might include tracheosotmy; NG tube; vascular access lines; restraints; Alexandre catheter; chest tubes; prolonged bedbound status. Fentanyl drip has been discontinued, currently on oxycodone 5 mg [id number]. Fentanyl 100mcg patch added 02/25/18. Palliative care recommends switching oxycodone 5 mg from around the clock to PRN given addition of Fentanyl patch. Fentanyl 50mcg q1hr AND Morphine 2mg q2hr PRN available. None given in the past 24 hours. Palliative care recommends discontinuation of Fentanyl 50mcg IV PRN and keeping Morphine 2mg IV PRN (only one IV opioid recommended at a time). * Encephalopathy: Persistent encephalopathy probably secondary to her sepsis/ critical illness and sedatives. Brain MRI negative for acute process. EEG revealing moderate to severe encephalopathy. Propofol infusion discontinued , currently on Precedex. Encephalopathy at last appears to be lifting on with patient awakening and able to follow some simple commands. Hopefully, will be able to continue to wean sedation. == Family was preparing to transition from aggressive care to comfort oriented care, but seeing the cognitive improvement on 02/27/18 are likely to want aggressive care to continue unless there is another major setback. == Palliative care will continue to follow up as needed to assist with symptom management and to further clarify goals of medical treatment as the clinical course evolves. Family receptive to this. . Attestation To help prompt me to consider important information that might be impacting today's encounter and assessment, information from prior notes written by myself or my colleagues may have been "brought forward" into today's note. My signature on this note, however, is an attestation that I personally performed the exam, history, and/or decision-making noted today, and, unless otherwise indicated, the interactions with patient, family, and staff as well as the review of records all occurred today. I also attest that the listed assessment and stated plan reflect my best clinical judgment today based on the combination of historical information, prior notes, and today's exam/ interactions. When time spent is documented, it refers only to time spent today by the signer, or if indicated, combined time spent today by collaborating physician/nurse practitioner. Hammad Butcher MD Feb 27, 2018 15:18
--- NOTE | 2018-02-27 15:29 | HHI.PR ---
Subjective Remarks Patient remains sedated with Diprivan and Fentanyl infusions. On PRVC with PEEP: 8, FIO2:60%. Afebrile. Tolerated CPAP 8 hrs Daughter at BS On PRVC opens eyes. " was smiling per daughter" Objective Vital Signs Vital Signs Date Time Temp Pulse Resp B/P (MAP) Pulse Ox O2 Delivery O2 Flow Rate FiO2 02/27/18 11:54 96 55 02/27/18 10:00 78 02/27/18 08:00 50 02/27/18 08:00 66 02/27/18 08:00 98.8 76 31 153/76 (101) 97 02/27/18 08:00 97 55 02/27/18 06:00 73 02/27/18 04:04 26 02/27/18 04:01 95 55 02/27/18 04:00 55 02/27/18 04:00 75 02/27/18 04:00 75 21 137/68 (91) 96 02/27/18 02:00 69 02/27/18 01:00 96 55 02/27/18 00:00 79 02/27/18 00:00 55 02/27/18 00:00 98.7 79 22 113/58 (76) 95 02/26/18 22:00 82 02/26/18 21:30 97 55 02/26/18 20:00 55 02/26/18 20:00 82 02/26/18 20:00 98.6 82 24 106/58 (74) 97 02/26/18 18:00 88 02/26/18 16:00 98.5 85 27 118/75 (89) 94 02/26/18 16:00 55 02/26/18 16:00 85 02/26/18 15:54 94 55 I/O 02/26/18 02/26/18 02/26/18 02/27/18 02/27/18 02/27/18 07:00 15:00 23:00 07:00 15:00 23:00 Intake Total 789 ml 961.5 ml 1317 ml 989 ml Output Total 750 ml 2275 ml 2250 ml Balance 39 ml 961.5 ml -958 ml -1261 ml IV Total 100 ml 516.5 ml 204 ml 250 ml Tube Feeding 629 ml 623 ml 669 ml Packed Cells 400 ml 400 ml Blood Product IV Normal Saline Flush 45 ml 30 ml Other 60 ml 60 ml 70 ml Output Urine Total 750 ml 2275 ml 2250 ml Chest Tube Drainage Total 0 ml 0 ml # Bowel Movements 0 1 0 Result Diagram: 02/27/1854602/27/18546 Objective Remarks GENERAL: WBWN Female, on Vent, sedated SKIN: Warm and dry. HEAD: Normocephalic. EYES: No scleral icterus. No injection or drainage. NECK: Supple, trachea midline. No JVD or lymphadenopathy. CARDIOVASCULAR: Regular rate and rhythm without murmurs, gallops, or rubs. RESPIRATORY: Breath sounds equal bilaterally. No accessory muscle use. [address] SQ Emphysema. GASTROINTESTINAL: Abdomen soft, non-tender, nondistended. MUSCULOSKELETAL: No cyanosis, or edema. Neuro: Sedated, A/P Assessment and Plan Acute hypoxemic respiratory failure s/p trach MRSA pneumonia, with multiple cavitations and consolidation s/p Moderate sized left pleural effusion, ? empyema COPD Bilateral pneumothorax, status post large bore chest tube Post Influenza pneumonia Leukocytosis Anemia PLAN: Cont Vent support keep sats >92% On PRVC RR 16, TV 600, PEEP:8 FIO2: 60%. Decrease FIO2: 50% as bernarda Bronchodilators Pulm toilet, trach care Monitor CT output. CXR today showed no evidence of PTX, b/l pulm infiltrates On Fentanyl and Diprivan dip for sedation. Daily sedation vacation Abx per ID ( On Zyvox) monitor for signs of infections ( Fever, WBC) Continue with tube feeds-On Jevity 1.5@60ml/hr GI/DVT prophylaxis Palliative care is following DW Family at [facility] Duran MD Feb 27, 2018 15:29
[2018-02-28] VITALS (20 sets, daily range): BP systolic 114–163; BP diastolic 57–77; PULSE 64–80; RESP 18–29; TEMP 98.6–99.3; O2SAT 93–98
[2018-02-28] MEDS: METOPROLOL TARTRATE 25 MG TAB PO SCH ×3 (01:35→23:45)
[2018-02-28] MEDS: DEXMEDETOMIDINE IV PRN ×4 (03:20→23:44)
[2018-02-28] MEDS: SODIUM CHLOR 0.9% IV PRN ×4 (03:20→23:44)
[2018-02-28] MEDS: FUROSEMIDE 40 MG/4 ML VIAL IV PUSH SCH ×4 (03:20→21:09)
[2018-02-28] MEDS: oxyCODONE HCL ORAL CONC 5 MG/0.25 ML SYRINGE PO SCH ×4 (03:22→21:10)
[2018-02-28] MEDS: RESP: ALBUTEROL 2.5 MG/IPRATROPIUM 0.5 MG NEB (SCH) NEB ×4 (04:30→19:58)
[2018-02-28] MEDS: HEPARIN SODIUM - SQ 10,000 UNITS/ML VIAL SQ SCH ×3 (05:13→21:10)
[2018-02-28] MEDS: DILTIAZEM HCL 30 MG TAB PO SCH ×4 (05:14→23:45)
[2018-02-28] MEDS: CHLORHEXIDINE GLUCONATE 2 % 1 PACK (2 CLOTHS) TOP SCH (05:14)
[2018-02-28] MEDS: cloNIDine HCL 0.1 MG TAB PO SCH ×3 (05:14→21:09)
--- NOTE | 2018-02-28 05:30 | RADRPT ---
EXAM DATE/TIME: 02/28/2018 04:16 [facility] COMPARISON: CHEST SINGLE AP, February 26, 2018, 3:24. INDICATIONS : Shortness of breath, possible pulmonary disease. MEDICAL HISTORY : Sepsis. SURGICAL HISTORY : Tonsillectomy. Gastric bypass. ENCOUNTER: Subsequent ACUITY: 1 month PAIN SCORE: Non-responsive. LOCATION: Bilateral chest FINDINGS: A single view of the chest demonstrates bilateral airspace disease greater throughout the right lung. 2 right-sided chest tubes with small apical pneumothorax right. 2 left-sided chest tubes without pne umothorax. Left lateral pleural density is unchanged. Tracheostomy tube and nasogastric tube unchange d.. Osseous structures are intact. CONCLUSION: 1. 2 right-sided chest tubes with small right apical pneumothorax. 2. 2 left-sided chest tubes without pneumothorax. 3. Left lateral pleural density is stable. 4. Bilateral airspace disease, unchanged Karri Muhammad MD on February 28, 2018 at 5:26 Board Certified Radiologist. This report was verified electronically.
[2018-02-28] MEDS: INSULIN ASPART SUPPLEMENTAL SCALE SQ SCH ×4 (05:38→23:45)
[2018-02-28] MEDS: REMOVE OLD DURAGESIC (FENTANYL) PATCH T-DERMAL SCH (07:52)
[2018-02-28] MEDS: DOCUSATE SODIUM 50 MG/SENNA 8.6 MG TAB PO SCH ×2 (07:53→21:09)
[2018-02-28] MEDS: fentaNYL 100 MCG/HR PATCH T-DERMAL SCH (07:53)
[2018-02-28] MEDS: ASPIRIN 81 MG CHEW TAB CHEW SCH (07:53)
[2018-02-28] MEDS: POTASSIUM CHLORIDE 25 MEQ EFFERVESCENT TAB PO SCH (07:55)
[2018-02-28] MEDS: SODIUM CHLORIDE 0.9% FLUSH 10 ML FLUSH IV FLUSH SCH ×2 (07:56→21:09)
[2018-02-28] MEDS: FAMOTIDINE 20 MG TAB PO SCH ×2 (07:56→21:09)
[2018-02-28] MEDS: CHLORHEXIDINE 0.12% (ORAL KIT) 15 ML CUP MT SCH ×2 (07:57→21:09)
[2018-02-28 08:24] LABS: AUTOMATED NEUTROPHIL # 14.1 TH/MM3 (1.8-7.7); BASOPHIL # 0.1 TH/MM3 (0-0.2); BASOPHIL % 0.8 % (0.0-2.0); EOSINOPHIL # 0.3 TH/MM3 (0-0.4); HEMATOCRIT 27.9 % (35.0-46.0); HEMOGLOBIN 9.2 GM/DL (11.6-15.3); LYMPH % 7.7 % (9.0-44.0); LYMPHOCYTE # 1.3 TH/MM3 (1.0-4.8); MEAN CELL VOLUME 85.2 FL (80.0-100.0); MEAN CORPUSCULAR HGB CONC 32.9 % (32.0-36.0); MEAN PLATELET VOLUME 7.8 FL (7.0-11.0); MONO % 6.2 % (0.0-8.0); MONOCYTE # 1.1 TH/MM3 (0-0.9); NEUT % 83.3 % (16.0-70.0); PLATELET COUNT 505 TH/MM3 (150-450); RED BLOOD COUNT 3.27 MIL/MM3 (4.00-5.30); RED CELL DISTRIBUTION WIDTH 16.5 % (11.6-17.2)
[2018-02-28 08:53] LABS: ALBUMIN 2.3 GM/DL (3.4-5.0); AST (GOT) 27 U/L (15-37); BICARBONATE 33.6 MEQ/L (21.0-32.0); BLOOD UREA NITROGEN 24 MG/DL (7-18); CHLORIDE 98 MEQ/L (98-107); CREATININE 0.68 MG/DL (0.50-1.00); GLOMERULAR FILTRATION RATE 88 ML/MIN (>89); GLUCOSE,RANDOM 179 MG/DL (74-106); MAGNESIUM 2.5 MG/DL (1.5-2.5); SODIUM (NA) 139 MEQ/L (136-145)
[2018-02-28 08:56] LABS: ALKALINE PHOSPHATASE 470 U/L (45-117); ALT (GPT) 30 U/L (10-53); PHOSPHORUS 3.7 MG/DL (2.5-4.9); TOTAL BILIRUBIN ADULT 0.4 MG/DL (0.2-1.0); TOTAL PROTEIN 7.6 GM/DL (6.4-8.2)
[2018-02-28 09:03] LABS: BANDS 1 % (0-6); LYMPHOCYTES 14 % (9-44); MONOCYTES 4 % (0-8); MYELOCYTES 3 % (0-0); NEUTROPHIL # MANUAL DIFF 13.9 TH/MM3 (1.8-7.7); POLYS (SEG NEUTROPHILS) 78 % (16-70)
[2018-02-28 09:04] LABS: TOXIC VACUOLATION PRESENT (NONE SEEN)
--- NOTE | 2018-02-28 09:25 | HHI.CCPN ---
Subjective Remarks/Hospital Course 01/30: 62-year-old female presents for evaluation of increasing shortness of breath and chest pain. She reports 1 week of coughing 3 days of pain in her left chest which radiates to her back, which prompted the visit to the emergency room yesterday. She rates her pain a 6 out of 10. She reports fevers , chills, fatigue, mild nausea. She denies any abdominal pain, vomiting. Patient denies any significant past medical history. Symptom onset was gradual , symptom severity is severe, there are no alleviating factors. Patient states that she has been taking the azithromycin antibiotics that were prescribed to her. She denies any current or historical tobacco use. 01/31: Intubated at 1 AM this morning and placed on mechanical ventilation due to worsening respiratory distress. Currently sedated, orally intubated on mechanical ventilation. 02/01: Remains sedated, orally intubated on mechanical ventilation. Went into A. fib with RVR this morning. Loaded with amiodarone, started on amiodarone drip and given digoxin 0.5 mg IV 02/02: Remains sedated, orally intubated on mechanical ventilation. Right sided pigtail catheter in place with 1+ air leak. Converted to sinus rhythm overnight. Remains on amiodarone gtt. 02/03: Remains sedated, orally intubated on mechanical ventilation. 1+ air leak and right sided pigtail catheter. Tolerating tube feeds. Remains on amiodarone gtt. 02/04: Noted to have pneumothorax on the left side this morning on routine chest x -ray which appeared to be under tension. Right sided pigtail catheter placed by Dr. Peña with reexpansion of lung. Patient remains sedated, orally intubated on mechanical ventilation. 1+ airleak and bilateral chest tubes noted. 02/05: Afebrile. Persistent leukocytosis, bilateral chest tubes continue on wall suction. Chest x-ray pending this a.m.. Patient scheduled for GRANT today, discussed with Dr. Vázquez. Patient continues on amiodarone infusion with sinus rhythm. Postprocedure GRANT,this afternoon, the patient became extremely agitated, noted significant increase in subcu emphysema, peak pressures 50's, O2 saturation significantly decreased to 78-80 %. Stat chest x-ray performed patient was noted to have a significant right pneumothorax. 20 Korean right chest tube placement emergently, with increase in O2 saturation decrease in peak inspiratory pressures. 02/06: Afebrile. Patient with persistent bilateral pneumothoraces, with diffuse bilateral infiltrates and massive SQ emphysema. O2 requirement significantly increased during the night, PIP 38-44. 28 F chest tubes were placed bilaterally with resolution of left pneumothorax and minimization of right pneumothorax, and improved oxygenation. 02/07: TMax 100.1 Chest tubes remain on suction. Resolution of pneumothoraces, continued extensive SQ emphysema. Persistent leukocytosis noted. FiO2 weaned to 50%. 02/08: Late entry note patient seen at 1250. Attempts at CPAP trials, unsuccessful this morning. FiO2 decreased 50%, with adequate oxygenation. 02/09: Afebrile. The patient was transitioned to CPAP trials with pressure support of 22/8. FiO2 currently at 55% continuing to wean. Patient noted with positive fluid balance Lasix 40 mg IV now, patient is initiated on Lasix 40 daily. Patient with positive air leak in chest tubes #1-28 Korean right and #3 pigtail left, both at 2+. Sedation vacation initiated early this a.m. patient neurologically intact. Patient continues on moderate sedation for CPAP to maintain ventilator synchrony plan for transitioning to Precedex. Noted improvement with subcu emphysema. Extensive discussion with patient's daughter regarding a possibility of a tracheostomy if unsuccessful with ventilator weaning process. 02/10: Subcutaneous emphysema has worsened overnight per RN who took care of the patient yesterday, now extending to the upper chest left neck and to the left side of the face including left eyelids. No increase in FiO2 requirement currently on 55%. I have reduced inspiratory pressure from 32 to 28. FiO2 reduced to 50%. Will check a repeat chest x-ray in afternoon if needed. Will request CT surgical evaluation for persistent subcutaneous emphysema despite 2 chest tubes bilaterally 02/11 Patient is sedated with Diprivan, Versed and Fentanyl drips. T: 101.[address] guided chest tube placement by IR today 02/12 No events overnight. Remains sedated and intubated. Afebrile. On PC/AC with PEEP: 8 and FIO2 40%. 02/13 Patient remains intubated and heavily sedated. Afebrile. Repeat CT chest yesterday showed loculated anterior left pneumothorax has resolved. A small left pleural effusion remains present and the 2 left chest tubes appear to be in good position to drain the fluid. Significant improvement in the bilateral chest wall subcutaneous emphysema. 02/14 Patient remains sedated and intubated. Afebrile. On Bumex drip 0.5mg/hr. 02/15 Patient remains intubated and sedated, On Bumex drip 0.5mg/hr with good urine output. T:100.1 02/16 Patient remains sedated and intubated. Off Bumex drip. Afebrile. 02/17 Remains intubated and sedated with Diprivan and Fentanyl drips. Afebrile. For trach tomorrow. 02/18: Trach anticipated for today. Remains sedated. Family at the bedside updated. Coags are normal 02/19: Tracheostomy performed yesterday, patient now with increasing oxygen requirement more critical. Currently on 70% FiO2. A stat CT of the chest ordered by ID shows persistent consolidation multilobar with multiple cavitations. Family updated at the bedside. At this time do not appear to be adequately responding to treatment 02/20: Remains critical with high FiO2 and PEEP requirements. CT chest yesterday showed persistent consolidation and cavitation and a moderate-sized left pleural effusion. Sputum culture again growing MRSA. White count increased to 19,000 today. Left pleural effusion need to be drained, consult IR for CT guided chest tube, due to worsening sepsis 02/21: Patient remains intubated sedated and critically ill. PEEP requirement still remains high and FiO2 is at 50%. Radiology to place new large bore pigtail chest tube for left pleural effusion which is loculated. Will remove the small pigtail chest tube after new one is placed. On sedation hold patient appears to be weak on left side. Check CT of the head also. Grossly fluid overloaded. We will start scheduled dialysis with IV Lasix. Teflaro added to Zyvox yesterday 02/22: Continues to be requiring high oxygen currently at 50% PEEP at 8. New large bore pigtail chest tube placed on the left side yesterday with 200 mL output since placement. Bilateral previous pigtails to waterseal plan to remove the left original pigtail chest tube today. Patient continues to be encephalopathy 02/23: Remains on full ventilator support diuresing well with Lasix but still significantly fluid overloaded. Increase Lasix to 40 every 6 hours, add Diamox for 3 days. Continue chest tubes to suction. Fio2 reduced to 40% PEEP down to 10. MRI and EEG ordered due to persistent encephalopathy 02/24: No acute change in neurological status. EEG in progress. MRI pending. Right upper lobe pneumothorax resolved. Chest tubes 4 remain on -40 cm of water pressure plan for left upper and lower chest tube to be placed to waterseal today. Tracheal sutures in situ area clean dry and intact plan for suture removal of trach site tomorrow. Definition of goals of care to be discussed with palliative/ family conference scheduled for Sunday 02/25. 02/25: Remains on full vent support, PEEP 8, FiO2 50%. Remains on propofol and fentanyl. CXR remains stable. Tolerated PSV for 2 hours yesterday. Start Precedex and clonidine to facilitate more aggressive SBT, change fentanyl to patch. MRI negative for CVA, EEG encephalopathy. 02/26: No events over the night. Patient remains poorly responsive. No change in oxygenation, tolerating CPAP 15/8 and 55% O2. T-max of 99.1. I/O 3368/ 4580. Sister present at bedside. 2 right-sided chest tubes on suction, #4 with continuous air leak, 2 left-sided chest tubes on waterseal with no leak. 02/27: Patient did well over the night. This morning patient is more awake, attempting to follow some simple commands. T-max of 98.7, I/O 3267/4525. Sister and daughter present at bedside. Two right-sided chest tubes on suction , #4 with small air leak, 2 left-sided chest tubes on waterseal with no leak. 02/28: No events overnight. Patient remains awake, following, more interactive. T-max of 99.8, urine output remains adequate. Two right-sided chest tubes on suction, #4 still has air leak, 2 left-sided chest tubes on waterseal with no leak. Morning chest x-ray reviewed no significant change compared to previous one, still with small apical right residual pneumothorax. No family present at bedside. Objective Vital Signs Date Time Temp Pulse Resp B/P (MAP) Pulse Ox O2 Delivery O2 Flow Rate FiO2 02/28/18 08:00 98.6 71 23 148/73 (98) 97 02/28/18 07:56 55 Intake and Output 02/28/18 02/28/18 03/01/18 08:00 16:00 00:00 Intake Total 1107.5 ml Output Total 2000 ml Balance -892.5 ml Result Diagram: 02/28/18 0651 02/28/18650 Imaging Last 24 hours Impressions Chest X-Ray 02/28/18599 Signed Impressions: Service Date/Time: February 04:16 - CONCLUSION: 1. 2 right-sided chest tubes with small right apical pneumothorax. 2. 2 left-sided chest tubes without pneumothorax. 3. Left lateral pleural density is stable. 4. Bilateral airspace disease, unchanged Karri Muhammad MD Last 24 hours Impressions Chest X-Ray 02/26/18599 Signed Impressions: Service Date/Time: Monday, February 26, 2018 03:24 - CONCLUSION: 1. 2 chest tubes present bilaterally with a small right apical pneumothorax present. Air space disease and loculated fluid on the left are stable. Everett Ng MD Last Impressions Chest X-Ray 02/17/18 0000 Signed Impressions: Service Date/Time: Saturday, February 17, 2018 04:00 - CONCLUSION: 1. Patchy alveolar disease characteristic of edema or pneumonia. There has been no significant change when compared to the prior exam. To Vaughn MD Chest CT 02/12/18 1334 Signed Impressions: Service Date/Time: Monday, February 12, 2018 14:07 - CONCLUSION: 1. The loculated anterior left pneumothorax has resolved. A small left pleural effusion remains present and the 2 left chest tubes appear to be in good position to drain the fluid. 2. Significant improvement in the bilateral chest wall subcutaneous emphysema. 3. Stable severe kinking of the large bore right chest tube. This chest tube also extends into the fissure. Given these 2 findings, this likely not providing any significant suction. Consider removal. 4. Stable severe bilateral airspace consolidation with multifocal areas of cavitation. Michael Perea MD Liver Ultrasound 02/11/18 0000 Signed Impressions: Service Date/Time: Sunday, February 11, 2018 09:34 - CONCLUSION: Nondiagnostic examination CT scan is recommended for further evaluation if clinically indicated. To Vaughn MD Neck CT 02/10/18 0000 Signed Impressions: Service Date/Time: Saturday, February 10, 2018 14:57 - CONCLUSION: 1. Extensive subcutaneous edema in the neck which has dissected cephalad from the chest and is worse on the left side. 2. Support apparatus as above. See chest CT report for evaluation of lungs. 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 No adenopathy. Everett Ng MD Procedures 02/05- Right emergent 20 F chest tube placement 02/06: Left 28 Korean chest tube placement, right chest tube replacement 28 Korean Objective Remarks General - middle-aged lady, awake, ill-appearing, weak HEENT - pupils are equal, and reactive, sclerae are anicteric, neck is supple, no rigidity, no JVD, trach in place CV - regular heart sounds, no murmurs Chest - still with scattered coarse breath sounds b/l, decrease air entry at the bases, no wheezes, bilateral chest tubes in place Abdomen - soft, non-tender, not distended, BS present Extremities - warm, 1+ edema, + peripheral pulses, no clubbing Neuro - awake, follows some commands, opens mouth, moves upper extremities right greater than left, attempts to wiggle toes A/P Assessment and Plan Neuro: Acute metabolic encephalopathy Continue Precedex and clonidine Scheduled oxycodone for pain and fentanyl as needed Daily sedation vacation, as tolerated Pulm: Acute hypoxemic respiratory failure -improved O2 requirements, vent settings unchanged MRSA pneumonia, with multiple cavitations and consolidation ARDS Moderate sized L pleural effusion s/p 14 F chest tube COPD Bilateral pneumothorax, status post large bore chest tube Persistent small right apical pneumothorax Post Influenza pneumonia Continue vent support keep sats >90%, s/p Trach 02/18 Patient synchronized with the ventilator and no auto PEEP CT chest on 02/19/2018 showed bilateral consolidation extensive, cavitating lesions, moderate loculated left effusion Fluid studies sent 02/22/2018 not consistent with empyema Bilateral pigtail catheters and [address](4 total)-has minimal ouput, but maintain all chest tubes due to pneumo re-expansion Moderate left-sided pleural effusion, new left pigtail chest tube placed by radiology 02/21/2018 , but with only partial drainage Thoracic surgery has followed- Dr. Thornton-not planning on any surgical intervention DuoNeb scheduled and when necessary. Continue right-sided chest tubes to suction and left-sided chest tubes to waterseal CPAP today as tolerated Renal: Acute kidney injury-resolved Fluid overload -Maintain Alexandre -Monitor renal function, I/O's, electrolytes replacement per protocol. -Continue diuresis for now Cardiovascular: A. fib with RVR (converted to NSR 02/02) Significantly fluid overloaded -02/05 amiodarone infusion discontinued. -02/05 GRANT -no valvular vegetations. EF 55-60%, trace MVR, mild TVR, PAP 35 -Continue Cardizem 60mg Q6 and Lopressor 25mg Q12 GI Elevated LFTs ( trending down) -Hepatitis profile: Negative. US liver: non-diagnostic study -Tube feeds Jevity 1.5 -On Pepcid 20mg BID -J tube placement in OR this week per gen surgery if family wants to pursue aggressive care ID: MRSA, Enterobacter pneumonia MRSA Bacteremia -Antibiotics per ID. Currently on vancomycin -Monitor for signs of new infections ( Fever, WBC) -ID- Dr. Singleton following Endocrine: Hyperglycemia Medium scale sliding scale insulin dosing Glucose monitoring per ICU protocol Hematology: Anemia -improved H&H post transfusion Unclear etiology, currently being transfused DVT GI prophylaxis - Teds SCDs - Subcutaneous heparin - Pepcid Lines: peripheral IV's. Palliative care is following. Patient is slowly making progress, will most likely will need vermin exterminator rehab after recovery. Code status: Alternative code No family present at bedside this morning. Vinicio Carvalho MD Feb 28, 2018 09:25
[2018-02-28] MEDS: ALBUMIN 25% INJ 50 ML IV SCH ×2 (10:15→21:10)
[2018-02-28] MEDS ORDERED: LORazepam 0.5 MG TAB PO PRN (13:00)
[2018-02-28] MEDS: RESP: ALBUTEROL 2.5 MG/IPRATROPIUM 0.5 MG NEB (PRN) INH (14:07)
[2018-02-28] MEDS: MORPHINE SULFATE 4 MG/ML INJ IV PUSH PRN (14:25)
[2018-02-28] MEDS ORDERED: PHARMACY ORDERED LAB ONE (17:45)
--- NOTE | 2018-02-28 18:06 | HHI.HCPN ---
Reason for visit a. To assist with evaluation and management of symptoms including: dyspnea; encephalopathy, pain b. To assist medical decision maker(s) with: better understanding of current medical conditions; weighing benefits/burdens of medical treatment options; making medical treatment decisions. . Subjective/Interval History Patient even more wakeful today per nursing staff and family. Tolerated 5-6 hours of CPAP today. Patient was medicated with morphine and placed back on vent support prior to my visit, but she was arousable. She denies pain. She was able to give "thumbs up" sign and wiggle toes on demand. Nursing pain level scores have been mostly #1-3. Received one dose of prn lorazepam today and one dose of prn iv morphine today. No significant events overnight. . . Family/friend interactions Daughter and sister at bedside. They are happy with neurological improvement. We spoke about patient's overall strength/deconditioning, vulnerability to setbacks, and nutritional status. Family obviously wants aggressive care now that her overall condition is improving. Family had been postponing PEG tube placement thinking they might end up withdrawing life support. Now wonder if she would benefit from PEG. . Advance Directives Living Will: Never completed Health Care Surrogate: Never completed Durable Power of Senior Executive Compensation Analyst: Never completed Advance Directive Specifics Date completed: Patient has never completed an advanced directive. . Health Care Surrogate(s): There is no written designation of healthcare surrogate. . Documented care wishes: There is no written documentation of healthcare goals/preferences. . Objective Vital Signs Date Time Temp Pulse Resp B/P (MAP) Pulse Ox O2 Delivery O2 Flow Rate FiO2 02/28/18 16:00 99.3 68 18 114/57 (76) 93 02/28/18 16:00 68 02/28/18 16:00 55 02/28/18 15:29 20 02/28/18 14:30 24 02/28/18 14:00 75 02/28/18 13:58 94 55 02/28/18 12:00 55 02/28/18 12:00 99.3 80 29 163/77 (105) 96 02/28/18 12:00 80 02/28/18 10:00 75 02/28/18 09:51 55 02/28/18 09:51 98 55 02/28/18 08:00 55 02/28/18 08:00 69 02/28/18 08:00 98.6 71 23 148/73 (98) 97 02/28/18 07:56 97 55 02/28/18 06:00 64 02/28/18 04:30 96 55 02/28/18 04:00 66 02/28/18 04:00 98.9 66 18 160/77 (104) 97 02/28/18 04:00 55 02/28/18 02:00 65 02/28/18 00:43 95 55 02/28/18 00:00 66 02/28/18 00:00 55 02/28/18 00:00 99.0 67 20 145/69 (94) 93 02/27/18 22:00 75 02/27/18 21:54 95 55 02/27/18 20:00 99.2 69 20 113/58 (76) 92 02/27/18 20:00 55 02/27/18 20:00 69 02/27/18 18:00 70 Intake & Output 02/28/18 02/28/18 07:00 19:00 Intake Total 1157.5 ml 301 ml Output Total 2000 ml Balance -842.5 ml 301 ml IV Total 563.5 ml 301 ml Tube Feeding 534 ml Other 60 ml Output Urine Total 2000 ml Chest Tube Drainage Total 0 ml # Bowel Movements 0 . Physical Exam CONSTITUTIONAL/GENERAL: This is an obese patient in the medical intensive care unit bed. Arouses to voice/exam. Sleepy, but able to smile and follow simple commands. TUBES/LINES/DRAINS: Tracheostomy; bilateral chest tubes x2; peripheral IV; sequential compressive devices. NG tube. SKIN: Pale. No jaundice, rashes. Ecchymoses on upper extremities. No wounds seen anteriorly. Skin temperature appropriate. Not diaphoretic. EYES: Sclerae / conjunctivae clear. Pupils equal and round. Sclerae clear. ENT: Hearing grossly normal. Nose without bleeding or purulent drainage. Moist oral mucosa. NECK: Tracheostomy midline. CARDIOVASCULAR: Regular rate/rhythm without murmurs, gallops, or rubs. RESPIRATORY/CHEST: Bilateral chest tubes. Symmetric respirations on vent. Decreased air movement at bases. Lungs clear. GASTROINTESTINAL: Abdomen obese, large, soft. Active bowel sounds. GENITOURINARY: Without palpable bladder distension. Alexandre catheter in place. MUSCULOSKELETAL: Extremities without clubbing, cyanosis. NEUROLOGICAL: Follows simple commands. Moves all extremities PSYCHIATRIC: No obvious hallucinations or other evidence of psychosis. . Diagnostic Tests Laboratory Laboratory Tests Test 02/26/18 04:23 02/27/18 05:47 02/28/18 06:51 White Blood Count 19.1 TH/MM3 (4.0-11.0) 17.6 TH/MM3 (4.0-11.0) 17.0 TH/MM3 (4.0-11.0) Red Blood Count 2.27 MIL/MM3 (4.00-5.30) 3.36 MIL/MM3 (4.00-5.30) 3.27 MIL/MM3 (4.00-5.30) Hemoglobin 6.3 GM/DL (11.6-15.3) 9.3 GM/DL (11.6-15.3) 9.2 GM/DL (11.6-15.3) Hematocrit 19.6 % (35.0-46.0) 28.7 % (35.0-46.0) 27.9 % (35.0-46.0) Mean Corpuscular Volume 86.4 FL (80.0-100.0) 85.5 FL (80.0-100.0) 85.2 FL (80.0-100.0) Mean Corpuscular Hemoglobin 27.6 PG (27.0-34.0) 27.7 PG (27.0-34.0) 28.0 PG (27.0-34.0) Mean Corpuscular Hemoglobin Concent 32.0 % (32.0-36.0) 32.4 % (32.0-36.0) 32.9 % (32.0-36.0) Red Cell Distribution Width 16.2 % (11.6-17.2) 16.0 % (11.6-17.2) 16.5 % (11.6-17.2) Platelet Count 462 TH/MM3 (150-450) 560 TH/MM3 (150-450) 505 TH/MM3 (150-450) Mean Platelet Volume 7.8 FL (7.0-11.0) 7.6 FL (7.0-11.0) 7.8 FL (7.0-11.0) Neutrophils (%) (Auto) 85.5 % (16.0-70.0) 83.3 % (16.0-70.0) 83.3 % (16.0-70.0) Lymphocytes (%) (Auto) 7.0 % (9.0-44.0) 7.6 % (9.0-44.0) 7.7 % (9.0-44.0) Monocytes (%) (Auto) 5.4 % (0.0-8.0) 5.4 % (0.0-8.0) 6.2 % (0.0-8.0) Eosinophils (%) (Auto) 1.6 % (0.0-4.0) 2.8 % (0.0-4.0) 2.0 % (0.0-4.0) Basophils (%) (Auto) 0.5 % (0.0-2.0) 0.9 % (0.0-2.0) 0.8 % (0.0-2.0) Neutrophils # (Auto) 16.3 TH/MM3 (1.8-7.7) 14.7 TH/MM3 (1.8-7.7) 14.1 TH/MM3 (1.8-7.7) Lymphocytes # (Auto) 1.3 TH/MM3 (1.0-4.8) 1.3 TH/MM3 (1.0-4.8) 1.3 TH/MM3 (1.0-4.8) Monocytes # (Auto) 1.0 TH/MM3 (0-0.9) 0.9 TH/MM3 (0-0.9) 1.1 TH/MM3 (0-0.9) Eosinophils # (Auto) 0.3 TH/MM3 (0-0.4) 0.5 TH/MM3 (0-0.4) 0.3 TH/MM3 (0-0.4) Basophils # (Auto) 0.1 TH/MM3 (0-0.2) 0.2 TH/MM3 (0-0.2) 0.1 TH/MM3 (0-0.2) CBC Comment AUTO DIFF AUTO DIFF AUTO DIFF Differential Comment AUTO DIFF CONFIRMED FINAL DIFF MANUAL FINAL DIFF MANUAL Stomatocytes 1+ (NORMAL) Blood Urea Nitrogen 24 MG/DL (7-18) 24 MG/DL (7-18) 24 MG/DL (7-18) Creatinine 0.74 MG/DL (0.50-1.00) 0.73 MG/DL (0.50-1.00) 0.68 MG/DL (0.50-1.00) Random Glucose 166 MG/DL (74-106) 181 MG/DL (74-106) 179 MG/DL (74-106) Total Protein 6.9 GM/DL (6.4-8.2) 7.9 GM/DL (6.4-8.2) 7.6 GM/DL (6.4-8.2) Albumin 1.9 GM/DL (3.4-5.0) 2.4 GM/DL (3.4-5.0) 2.3 GM/DL (3.4-5.0) Calcium Level 8.8 MG/DL (8.5-10.1) 9.0 MG/DL (8.5-10.1) 9.0 MG/DL (8.5-10.1) Phosphorus Level 2.9 MG/DL (2.5-4.9) 3.8 MG/DL (2.5-4.9) 3.7 MG/DL (2.5-4.9) Magnesium Level 2.2 MG/DL (1.5-2.5) 2.5 MG/DL (1.5-2.5) 2.5 MG/DL (1.5-2.5) Alkaline Phosphatase 290 U/L (45-117) 431 U/L (45-117) 470 U/L (45-117) Aspartate Amino Transf (AST/SGOT) 24 U/L (15-37) 34 U/L (15-37) 27 U/L (15-37) Alanine Aminotransferase (ALT/SGPT) 24 U/L (10-53) 31 U/L (10-53) 30 U/L (10-53) Total Bilirubin 0.4 MG/DL (0.2-1.0) 0.5 MG/DL (0.2-1.0) 0.4 MG/DL (0.2-1.0) Sodium Level 138 MEQ/L (136-145) 140 MEQ/L (136-145) 139 MEQ/L (136-145) Potassium Level 3.2 MEQ/L (3.5-5.1) 3.6 MEQ/L (3.5-5.1) 3.3 MEQ/L (3.5-5.1) Chloride Level 98 MEQ/L (98-107) 98 MEQ/L (98-107) 98 MEQ/L (98-107) Carbon Dioxide Level 32.4 MEQ/L (21.0-32.0) 33.6 MEQ/L (21.0-32.0) 33.6 MEQ/L (21.0-32.0) Anion Gap 8 MEQ/L (5-15) 8 MEQ/L (5-15) 7 MEQ/L (5-15) Estimat Glomerular Filtration Rate 80 ML/MIN (>89) 81 ML/MIN (>89) 88 ML/MIN (>89) Differential Total Cells Counted 100 100 Neutrophils % (Manual) 85 % (16-70) 78 % (16-70) Band Neutrophils % 1 % (0-6) 1 % (0-6) Lymphocytes % 4 % (9-44) 14 % (9-44) Monocytes % 5 % (0-8) 4 % (0-8) Eosinophils % 2 % (0-4) Basophils % 1 % (0-2) Neutrophils # (Manual) 15.5 TH/MM3 (1.8-7.7) 13.9 TH/MM3 (1.8-7.7) Metamyelocytes 1 % (0-1) Myelocytes 1 % (0-0) 3 % (0-0) Platelet Estimate HIGH (NORMAL) HIGH (NORMAL) Platelet Morphology Comment NORMAL (NORMAL) NORMAL (NORMAL) Toxic Vacuolation PRESENT (NONE SEEN) . Result Diagram: 02/28/1851 02/28/18 0651 Microbiology Microbiology Date/Time Source Procedure Growth Status 02/19/18 14:03 Blood Peripheral Aerobic Blood Culture - Final NO GROWTH IN 5 DAYS Complete 02/19/18 14:03 Blood Peripheral Anaerobic Blood Culture - Final NO GROWTH IN 5 DAYS Complete 02/22/18 14:19 Fluid Pleural Fluid Fungal Smear - Final NO FUNGAL ELEMENTS SEEN. Resulted 02/22/18 14:19 Fluid Pleural Fluid Fungal Culture Pending Resulted 02/10/18 13:53 Genital Vaginal Genital Culture - Final Klebsiella Pneumoniae Zelda Albicans Complete 02/17/18 18:00 Sputum Endotracheal Gram Stain - Final Complete 02/17/18 18:00 Sputum Culture - Final S. Aureus Mrsa Complete 01/31/18 07:42 Urine Catheterized Urine Urine Culture - Final NO GROWTH IN 48 HOURS. Complete . Imaging Last Impressions Chest X-Ray 02/28/18 0600 Signed Impressions: Service Date/Time: February 04:16 - CONCLUSION: 1. 2 right-sided chest tubes with small right apical pneumothorax. 2. 2 left-sided chest tubes without pneumothorax. 3. Left lateral pleural density is stable. 4. Bilateral airspace disease, unchanged Karri Muhammad MD Brain MRI 02/24/18 0000 Signed Impressions: Service Date/Time: Saturday, February 24, 2018 12:42 - CONCLUSION: Negative exam with no evidence of hemorrhage, mass infarction. Kevin Tello MD Head CT 02/21/18 0000 Signed Impressions: Service Date/Time: February 14:24 - CONCLUSION: 1. Bilateral mastoiditis. 2. Otherwise negative. No acute intracranial process to explain current clinical symptoms Gino Hernandez MD Chest Tube Insertion 02/21/18 0000 Signed Impressions: Service Date/Time: February 14:36 - CONCLUSION: Uncomplicated chest tube placement as above. Karri Muhammad MD Chest CT 02/19/18 0000 Signed Impressions: Service Date/Time: Monday, February 19, 2018 13:36 - CONCLUSION: 1. Multilobar consolidation with multiple cavities, not significantly changed. Differential possibilities are again noted to include septic emboli, TB and fungal etiologies including necrotizing process and autoimmune process such as Britton's. 2. Small right anterobasilar pneumothorax. Right-sided chest tube likely nonfunctional. 3. 2 left-sided chest tubes with loculated left pleural effusion, slightly more prominent on current study. Karri Muhammad MD Abdomen X-Ray 02/18/18 0000 Signed Impressions: Service Date/Time: Sunday, February 18, 2018 15:47 - CONCLUSION: 1. Suction type NGT in the region of the GE junction. Romeo Espinoza MD Liver Ultrasound 02/11/18 0000 Signed Impressions: Service Date/Time: Sunday, February 11, 2018 09:34 - CONCLUSION: Nondiagnostic examination CT scan is recommended for further evaluation if clinically indicated. To Vaughn MD Neck CT 02/10/18 0000 Signed Impressions: Service Date/Time: Saturday, February 10, 2018 14:57 - CONCLUSION: 1. Extensive subcutaneous edema in the neck which has dissected cephalad from the chest and is worse on the left side. 2. Support apparatus as above. See chest CT report for evaluation of lungs. 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 No adenopathy. Everett Ng MD . Procedures * 01/31/18 -Intubation/mechanical ventilation right subclavian * Central line placement * Bilateral chest tube placement * Transesophageal echo * 02/18/18 -tracheostomy . Assessment and Plan Disease Oriented Problem List: (1) PNA (pneumonia) Comment: MRSA + Enterobacter (2) Respiratory failure (3) ARDS (adult respiratory distress syndrome) (4) Sepsis Comment: MRSA (5) Anemia (6) Hypoalbuminemia (7) Bilateral pneumothoraces Comment: Recurrent and multiple pneumothoraces . (8) ARF (acute renal failure) Comment: resolved (9) Encephalopathy Comment: Now improving. . Symptom Scale: (1) Pain 0-10 Scale: Unable to quantify Comment: No known prehospitalization pain syndromes. Current sources of discomfort might include trach; NG tube; vascular access lines; restraints; Alexandre catheter; chest tubes; prolonged bedbound status. . (2) Dyspnea 0-10 Scale: Unable to quantify Comment: Patient with underlying pneumonia and bilateral pneumothoraces. Dyspnea currently managed with ventilatory support. Now tolerating longer CPAP trials. . (3) Encephalopathy 0-10 Scale: Unable to quantify Comment: source of prolonged encephalopathy is unclear -- metabolic? durgs? hypoxic? Appears to be improving after change from propofol+ iv fentanyl to Precedex. . . Pertinent Non-Medical Issues Psychosocial: Has a male partner . She normally lives with him in a manufactured home. He is a smoker. Her 2 daughters and sister come in from [place] regularly . Spiritual: Patient is hinduism zoroastrianism. Cover Marker visits would be appreciated. Legal: There are no advance directives. Without written designation of a healthcare surrogate, proxy decision making would fall to both adult daughters. Ethical issues impacting care: Patient is currently incapacitated to make her own medical decisions. It is unclear if/when she will become capacitated to do so. . Important Contacts Alona Caballero (daughter and co-health care proxy) [phone] Zenobia Clay (daughter and co-health care proxy) [phone] Brett Mackay (boyfriend -- NO DECISION MAKING RIGHTS unless there is written documentation saying otherwise) [phone] . Prognosis On the one hand, other than her morbid obesity, this patient has very few health problems and has managed to stay out of the hospital. Ordinarily, we would expect her to respond well to treatment and improve. This patient declined incredibly quickly and has very severe respiratory disease in spite of the fact that she has no known underlying chronic respiratory illness.She has multiple pneumothoraces. She has developed Enterobacter pneumonia on top of her MRSA pneumonia. After 30 days of hospitalization, patient now showing neurological improvement and now tolerating long CPAP trials. If encephalopathy continues to improve and we are able to extend CPAP trials, chances for meaningful recovery improve. . Code Status: Alternative Code Plan == Code Status: ALT CODE (no defibrillation; no chest compression) == Medical Decision Making: Patient is currently incapacitated to make her own healthcare decisions. As she is now showing evidence of neurological improvement , anticipate it appears she may regain capacity to make her own health care decisions. Since there is no written designation of healthcare surrogacy that we are aware of, proxy decision making would fall to her 2 adult children -- Alona Caballero and Zenobia Clay. They both have accepted this role. == Goals of medical treatment: Goals of treatment remain aggressive short of no chest compressions or defibrillation. Family was seriously considering withdrawal of life support, but now that patient is showing signs of neurological recovery , they continue to desire aggressive care. == Symptoms: * Dyspnea: Patient with underlying pneumonia and bilateral pneumothoraces. Dyspnea currently managed with ventilatory support. Bilateral chest tubes x2 in place. Patient status post tracheostomy on 02/18, Ongoing CPAP trials. Seems to be improving finally. No further recommendations at this time. * Pain: No known pre-hospitalization pain syndromes. Current sources of discomfort might include tracheosotmy; NG tube; vascular access lines; restraints; Alexandre catheter; chest tubes; prolonged bedbound status. Fentanyl drip has been discontinued, currently on oxycodone 5 mg [id number]. Fentanyl 100mcg patch added 02/25/18. Palliative care recommends switching oxycodone 5 mg from around the clock to PRN given addition of Fentanyl patch. Fentanyl 50mcg q1hr AND Morphine 2mg q2hr PRN available. None given in the past 24 hours. Palliative care recommends discontinuation of Fentanyl 50mcg IV PRN and keeping Morphine 2mg IV PRN (only one IV opioid recommended at a time). * Encephalopathy: Persistent encephalopathy probably secondary to her sepsis/ critical illness and sedatives. Brain MRI negative for acute process. EEG revealing moderate to severe encephalopathy. Propofol infusion discontinued , currently on Precedex. Encephalopathy at last appears to be lifting on with patient awakening and able to follow some simple commands. Hopefully, will be able to continue to wean sedation. == Family was preparing to transition from aggressive care to comfort oriented care, but seeing the cognitive improvement on 02/27/18 are likely to want aggressive care to continue unless there is another major setback. == Family is asking about PEG tube placement. With patient seeming to improve neurologically, if software engineer web services agrees, can begin speech therapy soon to see if we can start oral nutrition and avoid PEG tube altogether. == Palliative care will continue to follow up as needed to assist with symptom management and to further clarify goals of medical treatment as the clinical course evolves. Family receptive to this. . Attestation To help prompt me to consider important information that might be impacting today's encounter and assessment, information from prior notes written by myself or my colleagues may have been "brought forward" into today's note. My signature on this note, however, is an attestation that I personally performed the exam, history, and/or decision-making noted today, and, unless otherwise indicated, the interactions with patient, family, and staff as well as the review of records all occurred today. I also attest that the listed assessment and stated plan reflect my best clinical judgment today based on the combination of historical information, prior notes, and today's exam/ interactions. When time spent is documented, it refers only to time spent today by the signer, or if indicated, combined time spent today by collaborating physician/nurse practitioner. . Hammad Butcher MD Feb 28, 2018 18:06
--- NOTE | 2018-02-28 19:17 | HHI.PR ---
Subjective Remarks Patient remains sedated with Diprivan and Fentanyl infusions. On PRVC with PEEP: 8, FIO2:60%. Afebrile. Tolerated CPAP 5-6 hrs Daughter at BS Back on Vent Was more responsive, mouthing words Objective Vital Signs Vital Signs Date Time Temp Pulse Resp B/P (MAP) Pulse Ox O2 Delivery O2 Flow Rate FiO2 02/28/18 18:00 79 02/28/18 16:00 99.3 68 18 114/57 (76) 93 02/28/18 16:00 68 02/28/18 16:00 55 02/28/18 15:29 20 02/28/18 14:30 24 02/28/18 14:00 75 02/28/18 13:58 94 55 02/28/18 12:00 55 02/28/18 12:00 99.3 80 29 163/77 (105) 96 02/28/18 12:00 80 02/28/18 10:00 75 02/28/18 09:51 55 02/28/18 09:51 98 55 02/28/18 08:00 55 02/28/18 08:00 69 02/28/18 08:00 98.6 71 23 148/73 (98) 97 02/28/18 07:56 97 55 02/28/18 06:00 64 02/28/18 04:30 96 55 02/28/18 04:00 66 02/28/18 04:00 98.9 66 18 160/77 (104) 97 02/28/18 04:00 55 02/28/18 02:00 65 02/28/18 00:43 95 55 02/28/18 00:00 66 02/28/18 00:00 55 02/28/18 00:00 99.0 67 20 145/69 (94) 93 02/27/18 22:00 75 02/27/18 21:54 95 55 02/27/18 20:00 99.2 69 20 113/58 (76) 92 02/27/18 20:00 55 02/27/18 20:00 69 I/O 02/27/18 02/27/18 02/27/18 02/28/18 02/28/18 02/28/18 07:00 15:00 23:00 07:00 15:00 23:00 Intake Total 989 ml 1008 ml 1107.5 ml 301 ml 684 ml Output Total 2250 ml 1175 ml 2000 ml 1900 ml Balance -1261 ml -167 ml -892.5 ml 301 ml -1216 ml IV Total 250 ml 301 ml 513.5 ml 301 ml Tube Feeding 669 ml 657 ml 534 ml 644 ml Other 70 ml 50 ml 60 ml 40 ml Output Urine Total 2250 ml 1175 ml 2000 ml 1900 ml Chest Tube Drainage Total 0 ml 0 ml 0 ml # Bowel Movements 0 0 0 1 Result Diagram: 02/28/1851 02/28/1851 Objective Remarks GENERAL: WBWN Female, on Vent, sedated SKIN: Warm and dry. HEAD: Normocephalic. EYES: No scleral icterus. No injection or drainage. NECK: Supple, trachea midline. No JVD or lymphadenopathy. CARDIOVASCULAR: Regular rate and rhythm without murmurs, gallops, or rubs. RESPIRATORY: Breath sounds equal bilaterally. No accessory muscle use. [address] SQ Emphysema. GASTROINTESTINAL: Abdomen soft, non-tender, nondistended. MUSCULOSKELETAL: No cyanosis, or edema. Neuro: Sedated, A/P Assessment and Plan Acute hypoxemic respiratory failure s/p trach MRSA pneumonia, with multiple cavitations and consolidation s/p Moderate sized left pleural effusion, ? empyema COPD Bilateral pneumothorax, status post large bore chest tube Post Influenza pneumonia Leukocytosis Anemia PLAN: Cont Vent support keep sats >92% On AC RR 16, TV 600, PEEP:8 FIO2: 55%. Bronchodilators Pulm toilet, trach care Monitor CT output. Abx per ID ( On Zyvox) monitor for signs of infections ( Fever, WBC) Continue with tube feeds-On Jevity 1.5@60ml/hr GI/DVT prophylaxis Palliative care is following [facility] Family at [facility] Duran MD Feb 28, 2018 19:17
[2018-02-28] MEDS: VANCOMYCIN INJ 1,250 MG in SODIUM CHLOR 0.9% 250 ML INJ 250 ML IV SCH (21:08)
[2018-03-01] VITALS (18 sets, daily range): BP systolic 130–175; BP diastolic 61–84; PULSE 63–86; RESP 17–55; TEMP 98.7–99.4; O2SAT 93–99
[2018-03-01] MEDS: FUROSEMIDE 40 MG/4 ML VIAL IV PUSH SCH ×4 (03:35→20:26)
[2018-03-01] MEDS: CHLORHEXIDINE GLUCONATE 2 % 1 PACK (2 CLOTHS) TOP SCH (03:36)
[2018-03-01] MEDS: oxyCODONE HCL ORAL CONC 5 MG/0.25 ML SYRINGE PO SCH ×4 (03:36→20:27)
[2018-03-01] MEDS: RESP: ALBUTEROL 2.5 MG/IPRATROPIUM 0.5 MG NEB (SCH) NEB ×2 (03:59→08:44)
[2018-03-01] MEDS: HEPARIN SODIUM - SQ 10,000 UNITS/ML VIAL SQ SCH ×3 (05:56→20:26)
[2018-03-01] MEDS: DILTIAZEM HCL 30 MG TAB PO SCH ×3 (05:56→17:13)
[2018-03-01] MEDS: cloNIDine HCL 0.1 MG TAB PO SCH ×3 (05:56→20:26)
[2018-03-01] MEDS: INSULIN ASPART SUPPLEMENTAL SCALE SQ SCH ×3 (05:57→17:20)
--- NOTE | 2018-03-01 05:58 | RADRPT ---
EXAM DATE/TIME: 03/01/2018 04:39 [facility] COMPARISON: CHEST SINGLE AP, February 28, 2018, 4:16. INDICATIONS : Shortness of breath. MEDICAL HISTORY : Sepsis. SURGICAL HISTORY : Tonsillectomy. Gastric bypass. ENCOUNTER: Subsequent ACUITY: 1 month PAIN SCORE: Non-responsive. LOCATION: chest FINDINGS: Tracheostomy, left chest tubes, and right chest tubes are stable. The side port of the gastric tube is 2.5 cm above the diaphragm. Persistent bilateral patchy infiltrates, right greater than left, unc hanged from 02/28/18. CONCLUSION: 1. Stable bilateral patchy infiltrates. 2. Side port of the gastric tube is 2.5 cm above the diaphragm and needs to be advanced approximately 5 cm. Ilya Harris MD on March 01, 2018 at 5:54 Board Certified Radiologist. This report was verified electronically.
[2018-03-01 06:03] LABS: AUTOMATED NEUTROPHIL # 15.5 TH/MM3 (1.8-7.7); BASOPHIL # 0.1 TH/MM3 (0-0.2); BASOPHIL % 0.4 % (0.0-2.0); EOSINOPHIL # 0.2 TH/MM3 (0-0.4); EOSINOPHIL % 1.4 % (0.0-4.0); HEMOGLOBIN 10.3 GM/DL (11.6-15.3); LYMPH % 6.9 % (9.0-44.0); LYMPHOCYTE # 1.3 TH/MM3 (1.0-4.8); MEAN CELL VOLUME 86.1 FL (80.0-100.0); MEAN CORPUSCULAR HEMOGLOBIN 28.6 PG (27.0-34.0); MEAN CORPUSCULAR HGB CONC 33.2 % (32.0-36.0); MEAN PLATELET VOLUME 7.2 FL (7.0-11.0); MONO % 6.4 % (0.0-8.0); MONOCYTE # 1.2 TH/MM3 (0-0.9); NEUT % 84.9 % (16.0-70.0); PLATELET COUNT 537 TH/MM3 (150-450); RED CELL DISTRIBUTION WIDTH 16.2 % (11.6-17.2); WHITE BLOOD COUNT 18.2 TH/MM3 (4.0-11.0)
[2018-03-01 06:30] LABS: ALBUMIN 2.5 GM/DL (3.4-5.0); AST (GOT) 19 U/L (15-37); BICARBONATE 35.3 MEQ/L (21.0-32.0); BLOOD UREA NITROGEN 27 MG/DL (7-18); CALCIUM 9.2 MG/DL (8.5-10.1); CHLORIDE 98 MEQ/L (98-107); CREATININE 0.71 MG/DL (0.50-1.00); GLOMERULAR FILTRATION RATE 83 ML/MIN (>89); GLUCOSE,RANDOM 233 MG/DL (74-106); MAGNESIUM 2.7 MG/DL (1.5-2.5); SODIUM (NA) 142 MEQ/L (136-145)
[2018-03-01 06:33] LABS: ALKALINE PHOSPHATASE 443 U/L (45-117); ALT (GPT) 28 U/L (10-53); PHOSPHORUS 3.6 MG/DL (2.5-4.9); TOTAL BILIRUBIN ADULT 0.5 MG/DL (0.2-1.0); TOTAL PROTEIN 8.1 GM/DL (6.4-8.2)
[2018-03-01] MEDS: SODIUM CHLOR 0.9% IV PRN ×3 (06:59→20:27)
[2018-03-01] MEDS: DEXMEDETOMIDINE IV PRN ×3 (06:59→20:27)
[2018-03-01] MEDS: ASPIRIN 81 MG CHEW TAB CHEW SCH (08:11)
[2018-03-01] MEDS: CHLORHEXIDINE 0.12% (ORAL KIT) 15 ML CUP MT SCH ×2 (08:11→20:25)
[2018-03-01] MEDS: SODIUM CHLORIDE 0.9% FLUSH 10 ML FLUSH IV FLUSH SCH ×2 (08:12→20:25)
[2018-03-01] MEDS: POTASSIUM CHLORIDE 25 MEQ EFFERVESCENT TAB PO SCH (08:12)
[2018-03-01] MEDS: FAMOTIDINE 20 MG TAB PO SCH ×2 (08:12→20:26)
[2018-03-01] MEDS: ALBUMIN 25% INJ 50 ML IV SCH ×2 (10:43→20:27)
[2018-03-01] MEDS: VANCOMYCIN INJ 1,250 MG in SODIUM CHLOR 0.9% 250 ML INJ 250 ML IV SCH (11:50)
[2018-03-01] MEDS: DOCUSATE SODIUM 50 MG/SENNA 8.6 MG TAB PO SCH ×2 (11:50→20:26)
[2018-03-01] MEDS: METOPROLOL TARTRATE 25 MG TAB PO SCH (12:04)
--- NOTE | 2018-03-01 12:52 | RADRPT ---
EXAM DATE/TIME: 03/01/2018 12:04 [facility] COMPARISON: No previous studies available for comparison. INDICATIONS : Confirm NG tube placement. MEDICAL HISTORY : Sepsis. SURGICAL HISTORY : Tonsillectomy. Gastric bypass. ENCOUNTER: Initial ACUITY: 1 day PAIN SCORE: Non-responsive. LOCATION: Bilateral abdomen. FINDINGS: NG tube in proximal stomach. There is a right-sided chest tube present and a small caliber left chest tube basal airspace disease bilaterally. Nonspecific bowel gas pattern. CONCLUSION: 1. NG tip in proximal stomach with side-port in distal esophagus. Everett Ng MD on March 01, 2018 at 12:50 Board Certified Radiologist. This report was verified electronically.
[2018-03-01] MEDS: LORazepam 2 MG/ML VIAL IV PUSH PRN (14:21)
--- NOTE | 2018-03-01 14:26 | HHI.CCPN ---
Subjective Remarks/Hospital Course 01/30: 62-year-old female presents for evaluation of increasing shortness of breath and chest pain. She reports 1 week of coughing 3 days of pain in her left chest which radiates to her back, which prompted the visit to the emergency room yesterday. She rates her pain a 6 out of 10. She reports fevers , chills, fatigue, mild nausea. She denies any abdominal pain, vomiting. Patient denies any significant past medical history. Symptom onset was gradual , symptom severity is severe, there are no alleviating factors. Patient states that she has been taking the azithromycin antibiotics that were prescribed to her. She denies any current or historical tobacco use. 01/31: Intubated at 1 AM this morning and placed on mechanical ventilation due to worsening respiratory distress. Currently sedated, orally intubated on mechanical ventilation. 02/01: Remains sedated, orally intubated on mechanical ventilation. Went into A. fib with RVR this morning. Loaded with amiodarone, started on amiodarone drip and given digoxin 0.5 mg IV 02/02: Remains sedated, orally intubated on mechanical ventilation. Right sided pigtail catheter in place with 1+ air leak. Converted to sinus rhythm overnight. Remains on amiodarone gtt. 02/03: Remains sedated, orally intubated on mechanical ventilation. 1+ air leak and right sided pigtail catheter. Tolerating tube feeds. Remains on amiodarone gtt. 02/04: Noted to have pneumothorax on the left side this morning on routine chest x -ray which appeared to be under tension. Right sided pigtail catheter placed by Dr. Peña with reexpansion of lung. Patient remains sedated, orally intubated on mechanical ventilation. 1+ airleak and bilateral chest tubes noted. 02/05: Afebrile. Persistent leukocytosis, bilateral chest tubes continue on wall suction. Chest x-ray pending this a.m.. Patient scheduled for GRANT today, discussed with Dr. Vázquez. Patient continues on amiodarone infusion with sinus rhythm. Postprocedure GRANT,this afternoon, the patient became extremely agitated, noted significant increase in subcu emphysema, peak pressures 50's, O2 saturation significantly decreased to 78-80 %. Stat chest x-ray performed patient was noted to have a significant right pneumothorax. 20 Italian right chest tube placement emergently, with increase in O2 saturation decrease in peak inspiratory pressures. 02/06: Afebrile. Patient with persistent bilateral pneumothoraces, with diffuse bilateral infiltrates and massive SQ emphysema. O2 requirement significantly increased during the night, PIP 38-44. 28 F chest tubes were placed bilaterally with resolution of left pneumothorax and minimization of right pneumothorax, and improved oxygenation. 02/07: TMax 100.1 Chest tubes remain on suction. Resolution of pneumothoraces, continued extensive SQ emphysema. Persistent leukocytosis noted. FiO2 weaned to 50%. 02/08: Late entry note patient seen at 1250. Attempts at CPAP trials, unsuccessful this morning. FiO2 decreased 50%, with adequate oxygenation. 02/09: Afebrile. The patient was transitioned to CPAP trials with pressure support of 22/8. FiO2 currently at 55% continuing to wean. Patient noted with positive fluid balance Lasix 40 mg IV now, patient is initiated on Lasix 40 daily. Patient with positive air leak in chest tubes #1-28 Italian right and #3 pigtail left, both at 2+. Sedation vacation initiated early this a.m. patient neurologically intact. Patient continues on moderate sedation for CPAP to maintain ventilator synchrony plan for transitioning to Precedex. Noted improvement with subcu emphysema. Extensive discussion with patient's daughter regarding a possibility of a tracheostomy if unsuccessful with ventilator weaning process. 02/10: Subcutaneous emphysema has worsened overnight per RN who took care of the patient yesterday, now extending to the upper chest left neck and to the left side of the face including left eyelids. No increase in FiO2 requirement currently on 55%. I have reduced inspiratory pressure from 32 to 28. FiO2 reduced to 50%. Will check a repeat chest x-ray in afternoon if needed. Will request CT surgical evaluation for persistent subcutaneous emphysema despite 2 chest tubes bilaterally 02/11 Patient is sedated with Diprivan, Versed and Fentanyl drips. T: 101.[address] guided chest tube placement by IR today 02/12 No events overnight. Remains sedated and intubated. Afebrile. On PC/AC with PEEP: 8 and FIO2 40%. 02/13 Patient remains intubated and heavily sedated. Afebrile. Repeat CT chest yesterday showed loculated anterior left pneumothorax has resolved. A small left pleural effusion remains present and the 2 left chest tubes appear to be in good position to drain the fluid. Significant improvement in the bilateral chest wall subcutaneous emphysema. 02/14 Patient remains sedated and intubated. Afebrile. On Bumex drip 0.5mg/hr. 02/15 Patient remains intubated and sedated, On Bumex drip 0.5mg/hr with good urine output. T:100.1 02/16 Patient remains sedated and intubated. Off Bumex drip. Afebrile. 02/17 Remains intubated and sedated with Diprivan and Fentanyl drips. Afebrile. For trach tomorrow. 02/18: Trach anticipated for today. Remains sedated. Family at the bedside updated. Coags are normal 02/19: Tracheostomy performed yesterday, patient now with increasing oxygen requirement more critical. Currently on 70% FiO2. A stat CT of the chest ordered by ID shows persistent consolidation multilobar with multiple cavitations. Family updated at the bedside. At this time do not appear to be adequately responding to treatment 02/20: Remains critical with high FiO2 and PEEP requirements. CT chest yesterday showed persistent consolidation and cavitation and a moderate-sized left pleural effusion. Sputum culture again growing MRSA. White count increased to 19,000 today. Left pleural effusion need to be drained, consult IR for CT guided chest tube, due to worsening sepsis 02/21: Patient remains intubated sedated and critically ill. PEEP requirement still remains high and FiO2 is at 50%. Radiology to place new large bore pigtail chest tube for left pleural effusion which is loculated. Will remove the small pigtail chest tube after new one is placed. On sedation hold patient appears to be weak on left side. Check CT of the head also. Grossly fluid overloaded. We will start scheduled dialysis with IV Lasix. Teflaro added to Zyvox yesterday 02/22: Continues to be requiring high oxygen currently at 50% PEEP at 8. New large bore pigtail chest tube placed on the left side yesterday with 200 mL output since placement. Bilateral previous pigtails to waterseal plan to remove the left original pigtail chest tube today. Patient continues to be encephalopathy 02/23: Remains on full ventilator support diuresing well with Lasix but still significantly fluid overloaded. Increase Lasix to 40 every 6 hours, add Diamox for 3 days. Continue chest tubes to suction. Fio2 reduced to 40% PEEP down to 10. MRI and EEG ordered due to persistent encephalopathy 02/24: No acute change in neurological status. EEG in progress. MRI pending. Right upper lobe pneumothorax resolved. Chest tubes 4 remain on -40 cm of water pressure plan for left upper and lower chest tube to be placed to waterseal today. Tracheal sutures in situ area clean dry and intact plan for suture removal of trach site tomorrow. Definition of goals of care to be discussed with palliative/ family conference scheduled for Sunday 02/25. 02/25: Remains on full vent support, PEEP 8, FiO2 50%. Remains on propofol and fentanyl. CXR remains stable. Tolerated PSV for 2 hours yesterday. Start Precedex and clonidine to facilitate more aggressive SBT, change fentanyl to patch. MRI negative for CVA, EEG encephalopathy. 02/26: No events over the night. Patient remains poorly responsive. No change in oxygenation, tolerating CPAP 15/8 and 55% O2. T-max of 99.1. I/O 3368/ 4580. Sister present at bedside. 2 right-sided chest tubes on suction, #4 with continuous air leak, 2 left-sided chest tubes on waterseal with no leak. 02/27: Patient did well over the night. This morning patient is more awake, attempting to follow some simple commands. T-max of 98.7, I/O 3267/4525. Sister and daughter present at bedside. Two right-sided chest tubes on suction , #4 with small air leak, 2 left-sided chest tubes on waterseal with no leak. 02/28: No events overnight. Patient remains awake, following, more interactive. T-max of 99.8, urine output remains adequate. Two right-sided chest tubes on suction, #4 still has air leak, 2 left-sided chest tubes on waterseal with no leak. Morning chest x-ray reviewed no significant change compared to previous one, still with small apical right residual pneumothorax. No family present at bedside. 03/01: No events over the night. Patient remains awake, following commands, tolerating CPAP 15/8 at 55% O2. Great urine output with Lasix. Daughter present at bedside. Objective Vital Signs Date Time Temp Pulse Resp B/P (MAP) Pulse Ox O2 Delivery O2 Flow Rate FiO2 03/01/18 13:24 55 03/01/18 12:00 99.0 86 55 175/84 (114) 96 02/28/18 23:32 Ventilator Intake and Output 03/01/18 03/01/18 03/02/18 08:00 16:00 00:00 Intake Total 790 ml Output Total 1100 ml Balance -310 ml Result Diagram: 03/01/18 0543 03/01/18 0543 Imaging Last 24 hours Impressions Chest X-Ray 03/01/18 0600 Signed Impressions: Service Date/Time: Thursday, March 01, 2018 04:39 - CONCLUSION: 1. Stable bilateral patchy infiltrates. 2. Side port of the gastric tube is 2.5 cm above the diaphragm and needs to be advanced approximately 5 cm. Ilya Harris MD Abdomen X-Ray 03/01/18 0000 Signed Impressions: Service Date/Time: Thursday, March 01, 2018 12:04 - CONCLUSION: 1. NG tip in proximal stomach with side-port in distal esophagus. Everett Ng MD Last 24 hours Impressions Chest X-Ray 02/28/18 0600 Signed Impressions: Service Date/Time: February 04:16 - CONCLUSION: 1. 2 right-sided chest tubes with small right apical pneumothorax. 2. 2 left-sided chest tubes without pneumothorax. 3. Left lateral pleural density is stable. 4. Bilateral airspace disease, unchanged Karri Muhammad MD Last 24 hours Impressions Chest X-Ray 02/26/18 0600 Signed Impressions: Service Date/Time: Monday, February 26, 2018 03:24 - CONCLUSION: 1. 2 chest tubes present bilaterally with a small right apical pneumothorax present. Air space disease and loculated fluid on the left are stable. Everett Ng MD Last Impressions Chest X-Ray 02/17/18 0000 Signed Impressions: Service Date/Time: Saturday, February 17, 2018 04:00 - CONCLUSION: 1. Patchy alveolar disease characteristic of edema or pneumonia. There has been no significant change when compared to the prior exam. To Vaughn MD Chest CT 02/12/18 1334 Signed Impressions: Service Date/Time: Monday, February 12, 2018 14:07 - CONCLUSION: 1. The loculated anterior left pneumothorax has resolved. A small left pleural effusion remains present and the 2 left chest tubes appear to be in good position to drain the fluid. 2. Significant improvement in the bilateral chest wall subcutaneous emphysema. 3. Stable severe kinking of the large bore right chest tube. This chest tube also extends into the fissure. Given these 2 findings, this likely not providing any significant suction. Consider removal. 4. Stable severe bilateral airspace consolidation with multifocal areas of cavitation. Michael Perea MD Liver Ultrasound 02/11/18 0000 Signed Impressions: Service Date/Time: Sunday, February 11, 2018 09:34 - CONCLUSION: Nondiagnostic examination CT scan is recommended for further evaluation if clinically indicated. To Vaughn MD Neck CT 02/10/18 0000 Signed Impressions: Service Date/Time: Saturday, February 10, 2018 14:57 - CONCLUSION: 1. Extensive subcutaneous edema in the neck which has dissected cephalad from the chest and is worse on the left side. 2. Support apparatus as above. See chest CT report for evaluation of lungs. 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 No adenopathy. Everett Ng MD Procedures 02/05- Right emergent 20 F chest tube placement 02/06: Left 28 Italian chest tube placement, right chest tube replacement 28 Italian Objective Remarks General - middle-aged lady, awake, ill-appearing, weak HEENT - pupils equal, reactive, sclerae anicteric, neck supple, no rigidity, neck veins not distended, trach in place, dry MM CV - regular S1 and S2, no murmurs appreciated Chest - coarse breath sounds b/l, decrease air entry at the bases, no wheezes, bilateral chest tubes in place Abdomen - soft, non-tender, not distended, BS present Extremities - warm and well-perfused, 1+ edema, + peripheral pulses Neuro - awake, follows some commands, opens mouth, moves upper extremities right greater than left, attempts to wiggle toes A/P Assessment and Plan Neuro: Acute metabolic encephalopathy Continue Precedex and clonidine Scheduled oxycodone for pain and fentanyl as needed Daily sedation vacation, as tolerated Pulm: Acute hypoxemic respiratory failure -improved O2 requirements, vent settings unchanged MRSA pneumonia, with multiple cavitations and consolidation ARDS Moderate sized L pleural effusion s/p 14 F chest tube COPD Bilateral pneumothorax, status post large bore chest tube Persistent small right apical pneumothorax 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 Post Influenza pneumonia Continue PRVC, keep sats >90%, s/p Trach 02/18 Patient synchronized with the ventilator and no auto PEEP CT chest on 02/19/2018 showed bilateral consolidation extensive, cavitating lesions, moderate loculated left effusion Fluid studies sent 02/22/2018 not consistent with empyema Bilateral pigtail catheters and [address](4 total)-has minimal ouput, but maintain all chest tubes due to pneumo re-expansion Moderate left-sided pleural effusion, new left pigtail chest tube placed by radiology 02/21/2018 , but with only partial drainage Thoracic surgery has followed- Dr. Thornton-not planning on any surgical intervention DuoNeb scheduled and when necessary. Continue right-sided chest tubes to suction and left-sided chest tubes to waterseal CPAP today as tolerated Renal: Acute kidney injury-resolved Fluid overload -Maintain Alexandre -Great response to diuresis. Check electrolytes in p.m. Cardiovascular: A. fib with RVR (converted to NSR 02/02) Significantly fluid overloaded -02/05 amiodarone infusion discontinued. -02/05 GRANT -no valvular vegetations. EF 55-60%, trace MVR, mild TVR, PAP 35 -Continue Cardizem 60mg Q6 and Lopressor 25mg Q12 GI Elevated LFTs ( trending down) -Hepatitis profile: Negative. US liver: non-diagnostic study -Tube feeds Jevity 1.5 -On Pepcid 20mg BID -Discussed with surgery today planned for J-tube placement early next week ID: MRSA, Enterobacter pneumonia MRSA Bacteremia -Antibiotics per ID. Currently on vancomycin -Monitor for signs of new infections ( Fever, WBC) -ID- Dr. Singleton following Endocrine: Hyperglycemia Medium scale sliding scale insulin dosing Glucose monitoring per ICU protocol Hematology: Anemia -improved H&H post transfusion Unclear etiology, currently being transfused DVT GI prophylaxis - Teds SCDs - Subcutaneous heparin - Pepcid Lines: peripheral IV's. Palliative care is following. 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 Code status: Alternative code Vinicio Carvalho MD Mar 01, 2018 14:26
[2018-03-01 15:10] LABS: MAGNESIUM 2.6 MG/DL (1.5-2.5); PHOSPHORUS 2.9 MG/DL (2.5-4.9)
[2018-03-01] MEDS: fentaNYL CITRATE 250 MCG/5 ML AMP IV PUSH PRN (17:11)
--- NOTE | 2018-03-01 17:32 | RADRPT ---
EXAM DATE/TIME: 03/01/2018 17:13 [facility] COMPARISON: CHEST SINGLE AP, March 01, 2018, 4:39. INDICATIONS : Evaluate pneumothorax. MEDICAL HISTORY : SURGICAL HISTORY : Four chest tubes. ENCOUNTER: Subsequent ACUITY: 1 month PAIN SCORE: Non-responsive. LOCATION: Bilateral chest FINDINGS: A single view of the chest demonstrates the tracheostomy tube, right chest tube, left chest tube and 2 small bilateral pigtail catheters are all in good position. The NG tube barely enters the stomach. There is patchy infiltrates bilaterally throughout the lungs.. Osseous structures are intact. CONCLUSION: Patchy infiltrates bilaterally. Tubes and catheters all in good position.. Maverick Capellan MD on March 01, 2018 at 17:29 Board Certified Radiologist. This report was verified electronically.
--- NOTE | 2018-03-01 18:40 | HHI.PR ---
Subjective Remarks Patient remains sedated with Diprivan and Fentanyl infusions. On PRVC with PEEP: 8, FIO2:60%. Afebrile. Tolerated CPAP 5-6 hrs Back on Vent, PRVC-AC Was more responsive, mouthing words DAughter at BS Objective Vital Signs Vital Signs Date Time Temp Pulse Resp B/P (MAP) Pulse Ox O2 Delivery O2 Flow Rate FiO2 03/01/18 16:38 96 55 03/01/18 16:00 55 03/01/18 14:00 78 03/01/18 13:24 55 03/01/18 12:00 50 03/01/18 12:00 99.0 86 55 175/84 (114) 96 03/01/18 12:00 86 03/01/18 11:36 96 55 03/01/18 10:00 78 03/01/18 09:00 50 03/01/18 08:49 55 03/01/18 08:49 99 55 03/01/18 08:00 55 03/01/18 08:00 63 03/01/18 08:00 98.7 63 17 135/63 (87) 97 03/01/18 06:00 77 03/01/18 04:03 97 55 03/01/18 04:00 55 03/01/18 04:00 79 03/01/18 04:00 99.2 79 23 156/71 (99) 96 03/01/18 02:00 76 03/01/18 00:00 75 03/01/18 00:00 99.1 73 22 130/61 (84) 95 03/01/18 00:00 55 02/28/18 23:32 95 Ventilator 02/28/18 23:27 95 55 02/28/18 22:00 69 02/28/18 20:00 55 02/28/18 20:00 72 02/28/18 20:00 99.1 72 28 152/67 (95) 96 02/28/18 19:49 95 55 I/O 02/28/18 02/28/18 02/28/18 03/01/18 03/01/18 03/01/18 07:00 15:00 23:00 07:00 15:00 23:00 Intake Total 1107.5 ml 301 ml 996.5 ml 1041 ml 50 ml 262.5 ml Output Total 2000 ml 1900 ml 1100 ml Balance -892.5 ml 301 ml -903.5 ml -59 ml 50 ml 262.5 ml IV Total 513.5 ml 301 ml 312.5 ml 503 ml 50 ml 262.5 ml Tube Feeding 534 ml 644 ml 538 ml Other 60 ml 40 ml Output Urine Total 2000 ml 1900 ml 1100 ml Chest Tube Drainage Total 0 ml 0 ml 0 ml # Bowel Movements 0 1 1 Result Diagram: 03/01/18 0543 03/01/18 1415 Objective Remarks GENERAL: WBWN Female, on Vent, sedated SKIN: Warm and dry. HEAD: Normocephalic. EYES: No scleral icterus. No injection or drainage. NECK: Supple, trachea midline. No JVD or lymphadenopathy. CARDIOVASCULAR: Regular rate and rhythm without murmurs, gallops, or rubs. RESPIRATORY: Breath sounds equal bilaterally. No accessory muscle use. [address] SQ Emphysema. GASTROINTESTINAL: Abdomen soft, non-tender, nondistended. MUSCULOSKELETAL: No cyanosis, or edema. Neuro: Sedated, A/P Assessment and Plan Acute hypoxemic respiratory failure s/p trach MRSA pneumonia, with multiple cavitations and consolidation s/p Moderate sized left pleural effusion, ? empyema COPD Bilateral pneumothorax, status post large bore chest tube Post Influenza pneumonia Leukocytosis Anemia PLAN: Cont Vent support keep sats >92% On PRVC-AC RR 16, TV 600, PEEP:8 FIO2: 55%. Bronchodilators Pulm toilet, trach care Monitor CT output. Abx per ID ( On Zyvox) monitor for signs of infections ( Fever, WBC) Continue with tube feeds-On Jevity 1.5@60ml/hr GI/DVT prophylaxis Palliative care is following [facility] Family at [facility] Duran MD Mar 01, 2018 18:40
[2018-03-01] MEDS: RESP: ALBUTEROL 2.5 MG/IPRATROPIUM 0.5 MG NEB (PRN) INH (23:57)
[2018-03-02] VITALS (19 sets, daily range): BP systolic 138–187; BP diastolic 63–79; PULSE 64–102; RESP 26–38; TEMP 97.7–99.9; O2SAT 90–100
[2018-03-02] MEDS: DILTIAZEM HCL 30 MG TAB PO SCH ×4 (00:15→16:46)
[2018-03-02] MEDS: MORPHINE SULFATE 4 MG/ML INJ IV PUSH PRN (00:15)
[2018-03-02] MEDS: METOPROLOL TARTRATE 25 MG TAB PO SCH ×2 (00:15→12:19)
[2018-03-02] MEDS: INSULIN ASPART SUPPLEMENTAL SCALE SQ SCH ×4 (00:16→18:00)
[2018-03-02] MEDS: oxyCODONE HCL ORAL CONC 5 MG/0.25 ML SYRINGE PO SCH ×4 (02:08→21:59)
[2018-03-02] MEDS: FUROSEMIDE 40 MG/4 ML VIAL IV PUSH SCH (02:08)
[2018-03-02] MEDS: CHLORHEXIDINE GLUCONATE 2 % 1 PACK (2 CLOTHS) TOP SCH (02:09)
[2018-03-02] MEDS: hydrALAZINE HCL 20 MG/ML VIAL IV PUSH PRN ×2 (02:09→18:35)
[2018-03-02] MEDS: LORazepam 2 MG/ML VIAL IV PUSH PRN ×2 (02:54→19:21)
[2018-03-02] MEDS: RESP: ALBUTEROL 2.5 MG/IPRATROPIUM 0.5 MG NEB (PRN) INH ×2 (03:18→19:41)
[2018-03-02] MEDS: SODIUM CHLOR 0.9% IV PRN ×3 (03:36→19:18)
[2018-03-02] MEDS: DEXMEDETOMIDINE IV PRN ×3 (03:36→19:18)
--- NOTE | 2018-03-02 04:55 | RADRPT ---
EXAM DATE/TIME: 03/02/2018 04:13 [facility] COMPARISON: CHEST SINGLE AP, March 01, 2018, 17:13. INDICATIONS : Shortness of breath, possible pneumothorax. MEDICAL HISTORY : Sepsis. SURGICAL HISTORY : Gastric bypass. Tonsillectomy. ENCOUNTER: Subsequent ACUITY: 1 month PAIN SCORE: Non-responsive. LOCATION: Bilateral chest FINDINGS: Bilateral large bore chest tubes and bilateral pigtail catheters stable position. Gastric tube tip a nd side-port project within the stomach. Patchy partially consolidated infiltrates throughout both l ungs sparing the left apex stable. Pleural thickening along lateral left chest characteristic of ple ural effusion, stable. CONCLUSION: Stable bilateral infiltrates and left pleural effusion. Ilya Harris MD on March 02, 2018 at 4:53 Board Certified Radiologist. This report was verified electronically.
[2018-03-02] MEDS ORDERED: PHARMACY ORDERED LAB ONE (05:45)
[2018-03-02] MEDS: VANCOMYCIN INJ 1,250 MG in SODIUM CHLOR 0.9% 250 ML INJ 250 ML IV SCH (05:57)
[2018-03-02] MEDS: HEPARIN SODIUM - SQ 10,000 UNITS/ML VIAL SQ SCH ×3 (05:57→21:59)
[2018-03-02] MEDS: cloNIDine HCL 0.1 MG TAB PO SCH ×3 (05:58→21:59)
[2018-03-02 06:14] LABS: AUTOMATED NEUTROPHIL # 20.3 TH/MM3 (1.8-7.7); BASOPHIL # 0.1 TH/MM3 (0-0.2); BASOPHIL % 0.6 % (0.0-2.0); EOSINOPHIL # 0.4 TH/MM3 (0-0.4); EOSINOPHIL % 1.5 % (0.0-4.0); HEMATOCRIT 32.9 % (35.0-46.0); HEMOGLOBIN 10.5 GM/DL (11.6-15.3); LYMPH % 5.2 % (9.0-44.0); LYMPHOCYTE # 1.3 TH/MM3 (1.0-4.8); MEAN CORPUSCULAR HEMOGLOBIN 27.6 PG (27.0-34.0); MEAN CORPUSCULAR HGB CONC 31.8 % (32.0-36.0); MEAN PLATELET VOLUME 7.7 FL (7.0-11.0); MONO % 7.6 % (0.0-8.0); MONOCYTE # 1.8 TH/MM3 (0-0.9); NEUT % 85.1 % (16.0-70.0); PLATELET COUNT 347 TH/MM3 (150-450); RED BLOOD COUNT 3.78 MIL/MM3 (4.00-5.30); WHITE BLOOD COUNT 23.9 TH/MM3 (4.0-11.0)
[2018-03-02 06:32] LABS: ALBUMIN 2.6 GM/DL (3.4-5.0); ALKALINE PHOSPHATASE 396 U/L (45-117); ALT (GPT) 27 U/L (10-53); AST (GOT) 38 U/L (15-37); BICARBONATE 35.9 MEQ/L (21.0-32.0); BLOOD UREA NITROGEN 26 MG/DL (7-18); CHLORIDE 97 MEQ/L (98-107); CREATININE 0.61 MG/DL (0.50-1.00); GLOMERULAR FILTRATION RATE 99 ML/MIN (>89); GLUCOSE,RANDOM 189 MG/DL (74-106); MAGNESIUM 2.4 MG/DL (1.5-2.5); PHOSPHORUS 3.5 MG/DL (2.5-4.9); SODIUM (NA) 142 MEQ/L (136-145); TOTAL BILIRUBIN ADULT 0.5 MG/DL (0.2-1.0); TOTAL PROTEIN 7.7 GM/DL (6.4-8.2)
[2018-03-02] MEDS: FAMOTIDINE 20 MG TAB PO SCH ×2 (08:03→21:59)
[2018-03-02] MEDS: POTASSIUM CHLORIDE 25 MEQ EFFERVESCENT TAB PO SCH (08:03)
[2018-03-02] MEDS: ASPIRIN 81 MG CHEW TAB CHEW SCH (08:04)
[2018-03-02] MEDS: SODIUM CHLORIDE 0.9% FLUSH 10 ML FLUSH IV FLUSH SCH ×2 (08:04→21:59)
[2018-03-02] MEDS: DOCUSATE SODIUM 50 MG/SENNA 8.6 MG TAB PO SCH ×2 (08:04→21:59)
[2018-03-02] MEDS: CHLORHEXIDINE 0.12% (ORAL KIT) 15 ML CUP MT SCH ×2 (08:07→21:58)
[2018-03-02] MEDS: fentaNYL CITRATE 250 MCG/5 ML AMP IV PUSH PRN ×3 (09:11→19:00)
--- NOTE | 2018-03-02 13:21 | HHI.CCPN ---
Subjective Remarks/Hospital Course 01/30: 62-year-old female presents for evaluation of increasing shortness of breath and chest pain. She reports 1 week of coughing 3 days of pain in her left chest which radiates to her back, which prompted the visit to the emergency room yesterday. She rates her pain a 6 out of 10. She reports fevers , chills, fatigue, mild nausea. She denies any abdominal pain, vomiting. Patient denies any significant past medical history. Symptom onset was gradual , symptom severity is severe, there are no alleviating factors. Patient states that she has been taking the azithromycin antibiotics that were prescribed to her. She denies any current or historical tobacco use. 01/31: Intubated at 1 AM this morning and placed on mechanical ventilation due to worsening respiratory distress. Currently sedated, orally intubated on mechanical ventilation. 02/01: Remains sedated, orally intubated on mechanical ventilation. Went into A. fib with RVR this morning. Loaded with amiodarone, started on amiodarone drip and given digoxin 0.5 mg IV 02/02: Remains sedated, orally intubated on mechanical ventilation. Right sided pigtail catheter in place with 1+ air leak. Converted to sinus rhythm overnight. Remains on amiodarone gtt. 02/03: Remains sedated, orally intubated on mechanical ventilation. 1+ air leak and right sided pigtail catheter. Tolerating tube feeds. Remains on amiodarone gtt. 02/04: Noted to have pneumothorax on the left side this morning on routine chest x -ray which appeared to be under tension. Right sided pigtail catheter placed by Dr. Peña with reexpansion of lung. Patient remains sedated, orally intubated on mechanical ventilation. 1+ airleak and bilateral chest tubes noted. 02/05: Afebrile. Persistent leukocytosis, bilateral chest tubes continue on wall suction. Chest x-ray pending this a.m.. Patient scheduled for GRANT today, discussed with Dr. Vázquez. Patient continues on amiodarone infusion with sinus rhythm. Postprocedure GRANT,this afternoon, the patient became extremely agitated, noted significant increase in subcu emphysema, peak pressures 50's, O2 saturation significantly decreased to 78-80 %. Stat chest x-ray performed patient was noted to have a significant right pneumothorax. 20 [place]ian right chest tube placement emergently, with increase in O2 saturation decrease in peak inspiratory pressures. 02/06: Afebrile. Patient with persistent bilateral pneumothoraces, with diffuse bilateral infiltrates and massive SQ emphysema. O2 requirement significantly increased during the night, PIP 38-44. 28 F chest tubes were placed bilaterally with resolution of left pneumothorax and minimization of right pneumothorax, and improved oxygenation. 02/07: TMax 100.1 Chest tubes remain on suction. Resolution of pneumothoraces, continued extensive SQ emphysema. Persistent leukocytosis noted. FiO2 weaned to 50%. 02/08: Late entry note patient seen at 1250. Attempts at CPAP trials, unsuccessful this morning. FiO2 decreased 50%, with adequate oxygenation. 02/09: Afebrile. The patient was transitioned to CPAP trials with pressure support of 22/8. FiO2 currently at 55% continuing to wean. Patient noted with positive fluid balance Lasix 40 mg IV now, patient is initiated on Lasix 40 daily. Patient with positive air leak in chest tubes #1-28 Bel[place]ian right and #3 pigtail left, both at 2+. Sedation vacation initiated early this a.m. patient neurologically intact. Patient continues on moderate sedation for CPAP to maintain ventilator synchrony plan for transitioning to Precedex. Noted improvement with subcu emphysema. Extensive discussion with patient's daughter regarding a possibility of a tracheostomy if unsuccessful with ventilator weaning process. 02/10: Subcutaneous emphysema has worsened overnight per RN who took care of the patient yesterday, now extending to the upper chest left neck and to the left side of the face including left eyelids. No increase in FiO2 requirement currently on 55%. I have reduced inspiratory pressure from 32 to 28. FiO2 reduced to 50%. Will check a repeat chest x-ray in afternoon if needed. Will request CT surgical evaluation for persistent subcutaneous emphysema despite 2 chest tubes bilaterally 02/11 Patient is sedated with Diprivan, Versed and Fentanyl drips. T: 101.[address] guided chest tube placement by IR today 02/12 No events overnight. Remains sedated and intubated. Afebrile. On PC/AC with PEEP: 8 and FIO2 40%. 02/13 Patient remains intubated and heavily sedated. Afebrile. Repeat CT chest yesterday showed loculated anterior left pneumothorax has resolved. A small left pleural effusion remains present and the 2 left chest tubes appear to be in good position to drain the fluid. Significant improvement in the bilateral chest wall subcutaneous emphysema. 02/14 Patient remains sedated and intubated. Afebrile. On Bumex drip 0.5mg/hr. 02/15 Patient remains intubated and sedated, On Bumex drip 0.5mg/hr with good urine output. T:100.1 02/16 Patient remains sedated and intubated. Off Bumex drip. Afebrile. 02/17 Remains intubated and sedated with Diprivan and Fentanyl drips. Afebrile. For trach tomorrow. 02/18: Trach anticipated for today. Remains sedated. Family at the bedside updated. Coags are normal 02/19: Tracheostomy performed yesterday, patient now with increasing oxygen requirement more critical. Currently on 70% FiO2. A stat CT of the chest ordered by ID shows persistent consolidation multilobar with multiple cavitations. Family updated at the bedside. At this time do not appear to be adequately responding to treatment 02/20: Remains critical with high FiO2 and PEEP requirements. CT chest yesterday showed persistent consolidation and cavitation and a moderate-sized left pleural effusion. Sputum culture again growing MRSA. White count increased to 19,000 today. Left pleural effusion need to be drained, consult IR for CT guided chest tube, due to worsening sepsis 02/21: Patient remains intubated sedated and critically ill. PEEP requirement still remains high and FiO2 is at 50%. Radiology to place new large bore pigtail chest tube for left pleural effusion which is loculated. Will remove the small pigtail chest tube after new one is placed. On sedation hold patient appears to be weak on left side. Check CT of the head also. Grossly fluid overloaded. We will start scheduled dialysis with IV Lasix. Teflaro added to Zyvox yesterday 02/22: Continues to be requiring high oxygen currently at 50% PEEP at 8. New large bore pigtail chest tube placed on the left side yesterday with 200 mL output since placement. Bilateral previous pigtails to waterseal plan to remove the left original pigtail chest tube today. Patient continues to be encephalopathy 02/23: Remains on full ventilator support diuresing well with Lasix but still significantly fluid overloaded. Increase Lasix to 40 every 6 hours, add Diamox for 3 days. Continue chest tubes to suction. Fio2 reduced to 40% PEEP down to 10. MRI and EEG ordered due to persistent encephalopathy 02/24: No acute change in neurological status. EEG in progress. MRI pending. Right upper lobe pneumothorax resolved. Chest tubes 4 remain on -40 cm of water pressure plan for left upper and lower chest tube to be placed to waterseal today. Tracheal sutures in situ area clean dry and intact plan for suture removal of trach site tomorrow. Definition of goals of care to be discussed with palliative/ family conference scheduled for Sunday 02/25. 02/25: Remains on full vent support, PEEP 8, FiO2 50%. Remains on propofol and fentanyl. CXR remains stable. Tolerated PSV for 2 hours yesterday. Start Precedex and clonidine to facilitate more aggressive SBT, change fentanyl to patch. MRI negative for CVA, EEG encephalopathy. 02/26: No events over the night. Patient remains poorly responsive. No change in oxygenation, tolerating CPAP 15/8 and 55% O2. T-max of 99.1. I/O 3368/ 4580. Sister present at bedside. 2 right-sided chest tubes on suction, #4 with continuous air leak, 2 left-sided chest tubes on waterseal with no leak. 02/27: Patient did well over the night. This morning patient is more awake, attempting to follow some simple commands. T-max of 98.7, I/O 3267/4525. Sister and daughter present at bedside. Two right-sided chest tubes on suction , #4 with small air leak, 2 left-sided chest tubes on waterseal with no leak. 02/28: No events overnight. Patient remains awake, following, more interactive. T-max of 99.8, urine output remains adequate. Two right-sided chest tubes on suction, #4 still has air leak, 2 left-sided chest tubes on waterseal with no leak. Morning chest x-ray reviewed no significant change compared to previous one, still with small apical right residual pneumothorax. No family present at bedside. 03/01: No events over the night. Patient remains awake, following commands, tolerating CPAP 15/8 at 55% O2. Great urine output with Lasix. Daughter present at bedside. 03/02: Patient did well overnight. T-max of 99.6. Currently on CPAP 15/8, slightly with Vt 3-400's. I/O 2700/5210. Patient is awake, tracking, following commands. Chest x-ray reviewed no significant change compared to the one from yesterday. Objective Vital Signs Date Time Temp Pulse Resp B/P (MAP) Pulse Ox O2 Delivery O2 Flow Rate FiO2 03/02/18 13:02 98 55 03/02/18 10:00 79 03/02/18 08:00 97.7 38 164/70 (101) 03/02/18 00:00 Ventilator Intake and Output 03/02/18 03/02/18 03/02/18 07:59 15:59 23:59 Intake Total 1745.5 ml Output Total 2610 ml Balance -864.5 ml Result Diagram: 03/02/18 0531 03/02/18 0531 Other Results Laboratory Tests Test 03/01/18 17:45 Blood Gas Puncture Site LT RADIAL Blood Gas Patient Temperature 98.6 Blood Gas HCO3 37 mmol/L (22-26) Blood Gas Base Excess 13.0 mmol/L (-2-2) Blood Gas Oxygen Saturation 91 % (90-100) Arterial Blood pH 7.54 (7.380-7.420) Arterial Blood Partial Pressure CO2 44 mmHg (38-42) Arterial Blood Partial Pressure O2 66 mmHg (61-120) Arterial Blood Oxygen Content 12.4 Vol % (12.0-20.0) Arterial Blood Carboxyhemoglobin 1.6 % (0-4) Arterial Blood Methemoglobin 1.3 % (0-2) Blood Gas Hemoglobin 9.6 G/DL (12.0-16.0) Oxygen Delivery Device VENTILATOR Blood Gas Ventilator Setting PRVCAC/VT500/R16/P8 Blood Gas Inspired Oxygen 55 % Imaging Last 24 hours Impressions Chest X-Ray 03/02/18599 Signed Impressions: Service Date/Time: Friday, March 02, 2018 04:13 - CONCLUSION: Stable bilateral infiltrates and left pleural effusion. Ilya Harris MD Last 24 hours Impressions Chest X-Ray 03/01/18599 Signed Impressions: Service Date/Time: Thursday, March 01, 2018 04:39 - CONCLUSION: 1. Stable bilateral patchy infiltrates. 2. Side port of the gastric tube is 2.5 cm above the diaphragm and needs to be advanced approximately 5 cm. Ilya Harris MD Abdomen X-Ray 03/01/18 0000 Signed Impressions: Service Date/Time: Thursday, March 01, 2018 12:04 - CONCLUSION: 1. NG tip in proximal stomach with side-port in distal esophagus. Everett Ng MD Last 24 hours Impressions Chest X-Ray 02/28/18 0600 Signed Impressions: Service Date/Time: February 04:16 - CONCLUSION: 1. 2 right-sided chest tubes with small right apical pneumothorax. 2. 2 left-sided chest tubes without pneumothorax. 3. Left lateral pleural density is stable. 4. Bilateral airspace disease, unchanged Karri Muhammad MD Last 24 hours Impressions Chest X-Ray 02/26/18 0600 Signed Impressions: Service Date/Time: Monday, February 26, 2018 03:24 - CONCLUSION: 1. 2 chest tubes present bilaterally with a small right apical pneumothorax present. Air space disease and loculated fluid on the left are stable. Everett Ng MD Last Impressions Chest X-Ray 02/17/18 0000 Signed Impressions: Service Date/Time: Saturday, February 17, 2018 04:00 - CONCLUSION: 1. Patchy alveolar disease characteristic of edema or pneumonia. There has been no significant change when compared to the prior exam. To Vaughn MD Chest CT 02/12/18 1334 Signed Impressions: Service Date/Time: Monday, February 12, 2018 14:07 - CONCLUSION: 1. The loculated anterior left pneumothorax has resolved. A small left pleural effusion remains present and the 2 left chest tubes appear to be in good position to drain the fluid. 2. Significant improvement in the bilateral chest wall subcutaneous emphysema. 3. Stable severe kinking of the large bore right chest tube. This chest tube also extends into the fissure. Given these 2 findings, this likely not providing any significant suction. Consider removal. 4. Stable severe bilateral airspace consolidation with multifocal areas of cavitation. Michael Perea MD Liver Ultrasound 02/11/18 0000 Signed Impressions: Service Date/Time: Sunday, February 11, 2018 09:34 - CONCLUSION: Nondiagnostic examination CT scan is recommended for further evaluation if clinically indicated. To Vaughn MD Neck CT 02/10/18 0000 Signed Impressions: Service Date/Time: Matt, February 10, 2018 14:57 - CONCLUSION: 1. Extensive subcutaneous edema in the neck which has dissected cephalad from the chest and is worse on the left side. 2. Support apparatus as above. See chest CT report for evaluation of lungs. 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 No adenopathy. Everett Ng MD Procedures 02/05- Right emergent 20 F chest tube placement 02/06: Left 28 Bel[place]ian chest tube placement, right chest tube replacement 28 [place]ian Objective Remarks General - middle-aged lady, awake, ill-appearing, weak HEENT - pupils are equal, reactive, sclerae are anicteric, neck is supple, no neck rigidity, no JVD, trach is in place CV - regular heart sounds, no murmurs Chest - coarse breath sounds b/l, improved air entry at the bases, no wheezes, bilateral chest tubes [address] Abdomen - soft, non-tender, not distended, BS present Extremities - warm, 1+ edema, + peripheral pulses Neuro - awake, follows some commands, but she remains very weak, moves upper extremities right greater than left, attempts to wiggle toes A/P Assessment and Plan Neuro: Acute metabolic encephalopathy Continue Precedex and clonidine Scheduled oxycodone for pain and fentanyl as needed Daily sedation vacation, as tolerated, but she becomes very tachypneic off Precedex Pulm: Acute hypoxemic respiratory failure -improved O2 requirements, vent settings unchanged MRSA pneumonia, with multiple cavitations and consolidation ARDS Moderate sized L pleural effusion s/p 14 F chest tube COPD Bilateral pneumothorax, status post large bore chest tube Persistent small right apical pneumothorax 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 Pressure support increased to 18 with improvement in respiratory rate and tidal volume CT chest on 02/19/2018 showed bilateral consolidation extensive, cavitating lesions, moderate loculated left effusion Fluid studies sent 02/22/2018 not consistent with empyema Bilateral pigtail catheters and [address](4 total)-has minimal ouput, but maintain all chest tubes due to pneumo re-expansion Moderate left-sided pleural effusion, new left pigtail chest tube placed by radiology 02/21/2018 , but with only partial drainage Thoracic surgery has followed- Dr. Thornton-not planning on any surgical intervention DuoNeb scheduled and when necessary. Continue right-sided chest tubes to suction and left-sided chest tubes to waterseal Renal: Acute kidney injury-resolved Fluid overload Contraction alkalosis -Stop albumin -Decrease Lasix to 40 every 12 hours -Diamox 5001 -Repeat electrolytes at 3 PM Cardiovascular: A. fib with RVR (converted to NSR 02/02) Significantly fluid overloaded -02/05 amiodarone infusion discontinued. -02/05 GRANT -no valvular vegetations. EF 55-60%, trace MVR, mild TVR, PAP 35 -Continue Cardizem 60mg Q6 and Lopressor 25mg Q12 GI Elevated LFTs ( trending down) -Hepatitis profile: Negative. US liver: non-diagnostic study -Tube feeds Jevity 1.5 -On Pepcid 20mg BID -Discussed with surgery today planned for J-tube placement early next week ID: MRSA, Enterobacter pneumonia MRSA Bacteremia -Antibiotics per ID. Currently on vancomycin -Monitor for signs of new infections ( Fever, WBC) -ID- Dr. Singleton following -White count trending up however patient remains afebrile Endocrine: Hyperglycemia Medium scale sliding scale insulin dosing Glucose monitoring per ICU protocol Hematology: Anemia -improved H&H post transfusion Unclear etiology, currently being transfused DVT GI prophylaxis - Teds SCDs - Subcutaneous heparin - Pepcid Lines: peripheral IV's. Palliative care is following. Patient is slowly making progress, will most likely will need terminal supervisor rehab after recovery. Code status: Alternative code Vinicio Carvalho MD Mar 02, 2018 13:21
[2018-03-02 16:36] LABS: BICARBONATE 34.7 MEQ/L (21.0-32.0); CALCIUM 9.2 MG/DL (8.5-10.1); CREATININE 0.66 MG/DL (0.50-1.00); MAGNESIUM 2.6 MG/DL (1.5-2.5); PHOSPHORUS 3.3 MG/DL (2.5-4.9)
--- NOTE | 2018-03-02 17:01 | HHI.PR ---
Subjective Remarks Patient remains sedated with Diprivan and Fentanyl infusions. On PRVC with PEEP: 8, FIO2:60%. Afebrile. Tolerating CPAP Awake, follows simple commands Was more responsive, mouthing words Daughter at BS Objective Vital Signs Vital Signs Date Time Temp Pulse Resp B/P (MAP) Pulse Ox O2 Delivery O2 Flow Rate FiO2 03/02/18 16:22 96 55 03/02/18 14:00 84 03/02/18 13:02 98 55 03/02/18 12:00 80 03/02/18 12:00 98.3 80 26 138/65 (89) 95 03/02/18 12:00 55 03/02/18 10:00 79 03/02/18 08:20 55 03/02/18 08:19 97 55 03/02/18 08:00 97.7 79 38 164/70 (101) 100 03/02/18 08:00 79 03/02/18 08:00 65 03/02/18 06:00 64 03/02/18 04:00 65 03/02/18 04:00 99.5 102 37 169/79 (109) 93 03/02/18 04:00 102 03/02/18 03:20 93 60 03/02/18 02:00 85 03/02/18 00:00 96 Ventilator 03/02/18 00:00 75 03/02/18 00:00 55 03/02/18 00:00 99.6 80 27 187/77 (113) 95 03/01/18 23:45 96 55 03/01/18 22:00 66 03/01/18 20:35 99 55 03/01/18 20:00 81 03/01/18 20:00 99.3 81 28 172/75 (107) 93 03/01/18 20:00 55 03/01/18 18:00 81 I/O 03/01/18 03/01/18 03/01/18 03/02/18 03/02/18 03/02/18 07:00 15:00 23:00 07:00 15:00 23:00 Intake Total 1041 ml 50 ml 1167.5 ml 1745.5 ml Output Total 1100 ml 2600 ml 2610 ml Balance -59 ml 50 ml -1432.5 ml -864.5 ml IV Total 503 ml 50 ml 563.5 ml 513.5 ml Tube Feeding 538 ml 544 ml 1232 ml Other 60 ml Output Urine Total 1100 ml 2600 ml 2600 ml Chest Tube Drainage Total 0 ml 10 ml # Bowel Movements 1 0 Result Diagram: 03/02/18 0531 03/02/18 1555 Objective Remarks GENERAL: WBWN Female, on Vent, sedated SKIN: Warm and dry. HEAD: Normocephalic. EYES: No scleral icterus. No injection or drainage. NECK: Supple, trachea midline. No JVD or lymphadenopathy. CARDIOVASCULAR: Regular rate and rhythm without murmurs, gallops, or rubs. RESPIRATORY: Breath sounds equal bilaterally. No accessory muscle use. [address] SQ Emphysema. GASTROINTESTINAL: Abdomen soft, non-tender, nondistended. MUSCULOSKELETAL: No cyanosis, or edema. Neuro: Sedated, A/P Assessment and Plan Acute hypoxemic respiratory failure s/p trach MRSA pneumonia, with multiple cavitations and consolidation s/p Moderate sized left pleural effusion, ? empyema COPD Bilateral pneumothorax, status post large bore chest tube Post Influenza pneumonia Leukocytosis Anemia PLAN: Cont Vent support keep sats >92% Cont CPAP Wean 02 Rest with PRVC Bronchodilators Pulm toilet, trach care Monitor CT output. Continue with tube feeds-On Jevity 1.5@60ml/hr GI/DVT prophylaxis Palliative care is following DW Family at [facility] Duran MD Mar 02, 2018 17:01
--- NOTE | 2018-03-02 19:20 | HHI.IDPN ---
Subjective Subjective Remarks Improving Small amount of secretions Neurologically much better, following commnds, oriented x 2 repeat sputum is still purulent no fever Antibiotics vancomycin Lines Line sites with no e.o infection Past Medical History Gastric bypass Tonsillectomy Allergies: Coded Allergies: No Known Allergies (Unverified , 01/30/18) Objective . Vital Signs Date Time Temp Pulse Resp B/P (MAP) Pulse Ox O2 Delivery O2 Flow Rate FiO2 03/02/18 18:00 86 03/02/18 16:22 96 55 03/02/18 16:00 85 03/02/18 16:00 98.4 85 29 174/79 (110) 95 03/02/18 16:00 55 03/02/18 14:00 84 03/02/18 13:02 98 55 03/02/18 12:00 80 03/02/18 12:00 98.3 80 26 138/65 (89) 95 03/02/18 12:00 55 03/02/18 10:00 79 03/02/18 08:20 55 03/02/18 08:19 97 55 03/02/18 08:00 97.7 79 38 164/70 (101) 100 03/02/18 08:00 79 03/02/18 08:00 65 03/02/18 06:00 64 03/02/18 04:00 65 03/02/18 04:00 99.5 102 37 169/79 (109) 93 03/02/18 04:00 102 03/02/18 03:20 93 60 03/02/18 02:00 85 03/02/18 00:00 96 Ventilator 03/02/18 00:00 75 03/02/18 00:00 55 03/02/18 00:00 99.6 80 27 187/77 (113) 95 03/01/18 23:45 96 55 03/01/18 22:00 66 03/01/18 20:35 99 55 03/01/18 20:00 81 03/01/18 20:00 99.3 81 28 172/75 (107) 93 03/01/18 20:00 55 03/02/18 03/02/18 03/03/18 15:00 23:00 07:00 Intake Total 683 ml Output Total 1200 ml Balance -517 ml Tube Feeding 623 ml Other 60 ml Output Urine Total 1200 ml Chest Tube Drainage Total 0 ml # Bowel Movements 0 . Laboratory Tests Test 03/01/18 05:43 03/02/18 05:31 White Blood Count 18.2 TH/MM3 23.9 TH/MM3 Red Blood Count 3.60 MIL/MM3 3.78 MIL/MM3 Hemoglobin 10.3 GM/DL 10.5 GM/DL Hematocrit 31.0 % 32.9 % Mean Corpuscular Volume 86.1 FL 87.0 FL Mean Corpuscular Hemoglobin 28.6 PG 27.6 PG Mean Corpuscular Hemoglobin Concent 33.2 % 31.8 % Red Cell Distribution Width 16.2 % 17.0 % Platelet Count 537 TH/MM3 347 TH/MM3 Mean Platelet Volume 7.2 FL 7.7 FL Neutrophils (%) (Auto) 84.9 % 85.1 % Lymphocytes (%) (Auto) 6.9 % 5.2 % Monocytes (%) (Auto) 6.4 % 7.6 % Eosinophils (%) (Auto) 1.4 % 1.5 % Basophils (%) (Auto) 0.4 % 0.6 % Neutrophils # (Auto) 15.5 TH/MM3 20.3 TH/MM3 Lymphocytes # (Auto) 1.3 TH/MM3 1.3 TH/MM3 Monocytes # (Auto) 1.2 TH/MM3 1.8 TH/MM3 Eosinophils # (Auto) 0.2 TH/MM3 0.4 TH/MM3 Basophils # (Auto) 0.1 TH/MM3 0.1 TH/MM3 CBC Comment DIFF FINAL DIFF FINAL Differential Comment Hematology Comments Laboratory Tests Test 03/01/18 05:43 03/01/18 14:15 03/02/18 05:31 03/02/18 15:55 Blood Urea Nitrogen 27 MG/DL 26 MG/DL 26 MG/DL Creatinine 0.71 MG/DL 0.61 MG/DL 0.66 MG/DL Random Glucose 233 MG/DL 189 MG/DL 183 MG/DL Total Protein 8.1 GM/DL 7.7 GM/DL Albumin 2.5 GM/DL 2.6 GM/DL Calcium Level 9.2 MG/DL 9.0 MG/DL 9.2 MG/DL Phosphorus Level 3.6 MG/DL 2.9 MG/DL 3.5 MG/DL 3.3 MG/DL Magnesium Level 2.7 MG/DL 2.6 MG/DL 2.4 MG/DL 2.6 MG/DL Alkaline Phosphatase 443 U/L 396 U/L Aspartate Amino Transf (AST/SGOT) 19 U/L 38 U/L Alanine Aminotransferase (ALT/SGPT) 28 U/L 27 U/L Total Bilirubin 0.5 MG/DL 0.5 MG/DL Sodium Level 142 MEQ/L 142 MEQ/L 144 MEQ/L Potassium Level 3.5 MEQ/L 3.7 MEQ/L 3.9 MEQ/L 3.5 MEQ/L Chloride Level 98 MEQ/L 97 MEQ/L 102 MEQ/L Carbon Dioxide Level 35.3 MEQ/L 35.9 MEQ/L 34.7 MEQ/L Anion Gap 9 MEQ/L 9 MEQ/L 7 MEQ/L Estimat Glomerular Filtration Rate 83 ML/MIN 99 ML/MIN 91 ML/MIN Microbiology Date/Time Source Procedure Growth Status 03/02/18 03:15 Sputum Endotracheal Gram Stain - Final Resulted 03/02/18 03:15 Sputum Endotracheal Sputum Culture Pending Resulted Imaging Last Impressions Chest X-Ray 03/02/18 0600 Signed Impressions: Service Date/Time: Friday, March 02, 2018 04:13 - CONCLUSION: Stable bilateral infiltrates and left pleural effusion. Ilya Harris MD Abdomen X-Ray 03/01/18 0000 Signed Impressions: Service Date/Time: Thursday, March 01, 2018 12:04 - CONCLUSION: 1. NG tip in proximal stomach with side-port in distal esophagus. Everett Ng MD Brain MRI 02/24/18 0000 Signed Impressions: Service Date/Time: Saturday, February 24, 2018 12:42 - CONCLUSION: Negative exam with no evidence of hemorrhage, mass infarction. Kevin Tello MD Head CT 02/21/18 0000 Signed Impressions: Service Date/Time: February 14:24 - CONCLUSION: 1. Bilateral mastoiditis. 2. Otherwise negative. No acute intracranial process to explain current clinical symptoms Gino Hernandez MD Chest Tube Insertion 02/21/18 0000 Signed Impressions: Service Date/Time: February 14:36 - CONCLUSION: Uncomplicated chest tube placement as above. aKrri Muhammad MD Chest CT 02/19/18 0000 Signed Impressions: Service Date/Time: Monday, February 19, 2018 13:36 - CONCLUSION: 1. Multilobar consolidation with multiple cavities, not significantly changed. Differential possibilities are again noted to include septic emboli, TB and fungal etiologies including necrotizing process and autoimmune process such as Britton's. 2. Small right anterobasilar pneumothorax. Right-sided chest tube likely nonfunctional. 3. 2 left-sided chest tubes with loculated left pleural effusion, slightly more prominent on current study. Karri Muhammad MD Liver Ultrasound 02/11/18 0000 Signed Impressions: Service Date/Time: Sunday, February 11, 2018 09:34 - CONCLUSION: Nondiagnostic examination CT scan is recommended for further evaluation if clinically indicated. To Vaughn MD Neck CT 02/10/18 0000 Signed Impressions: Service Date/Time: Saturday, February 10, 2018 14:57 - CONCLUSION: 1. Extensive subcutaneous edema in the neck which has dissected cephalad from the chest and is worse on the left side. 2. Support apparatus as above. See chest CT report for evaluation of lungs. 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 No adenopathy. Everett Ng MD Physical Exam CONSTITUTIONAL/GENERAL: On the vent SKIN: No jaundice, rashes, or lesions. Ecchymoses on upper extremities. Skin temperature appropriate. generalized edema previous Sq emphysema resolved HEAD: Atraumatic. Normocephalic. EYES: Pupils equal and round and reactive. No scleral icterus. No injection or drainage. ENT: No nasal discharge, orally intubated NECK: Supple, nontender. CARDIOVASCULAR: Regular rate and rhythm without murmurs, gallops, or rubs. RESPIRATORY/CHEST: Symmetric, unlabored respirations. Rhonchi b/l. CTx2 on R and CT x 2 on the L GASTROINTESTINAL: Abdomen soft, nondistended. Obese. No reaction to palpation , not guarding. GENITOURINARY: Without palpable bladder distension. Alexandre catheter in place. MUSCULOSKELETAL: Extremities without clubbing, cyanosis, + 3 diffuse tight edema. . NEUROLOGICAL: awake, opens eyes, + eye contact, + follows commands PSYCHIATRIC: calm LINE: no evidence of infection Assessment & Plan Remarks IMPRESSION MRSA PNA, necrotizing Multiple b/l pneumothoraces ? postinfluenza PNA Loculated hydropneumothorax: ? empyema Acute VDRF failure to weaning sp trach High grade , sustained MRSA bacteremia GRANT negative Severe leukocytosis and bandemia New PNA, Enterobacter (panS) along with MRSA Empyema and multiple cavitary lesions - essentaially necrotizing PNA - no e/o endocarditis - sp multiple CTs placement MS change : resolving encephalopathy Prognosis is now guarded with improving neuro status PLAN cont vancomycin fu repeat sputum clx will repeat CT chest dw sister @ b/s Carlene Singleton MD Mar 02, 2018 19:20
[2018-03-02] MEDS: ACETAMINOPHEN 325 MG TAB PO PRN (22:00)
[2018-03-03] VITALS (20 sets, daily range): BP systolic 96–169; BP diastolic 53–78; PULSE 62–94; RESP 19–33; TEMP 97.9–98.8; O2SAT 93–100
[2018-03-03] MEDS: METOPROLOL TARTRATE 25 MG TAB PO SCH ×2 (00:14→12:26)
[2018-03-03] MEDS: VANCOMYCIN INJ 1,250 MG in SODIUM CHLOR 0.9% 250 ML INJ 250 ML IV SCH ×2 (00:14→18:04)
[2018-03-03] MEDS: DILTIAZEM HCL 30 MG TAB PO SCH ×5 (00:14→23:11)
[2018-03-03] MEDS: INSULIN ASPART SUPPLEMENTAL SCALE SQ SCH ×5 (00:15→23:17)
[2018-03-03] MEDS: SODIUM CHLOR 0.9% IV PRN ×4 (02:34→23:06)
[2018-03-03] MEDS: DEXMEDETOMIDINE IV PRN ×4 (02:34→23:06)
[2018-03-03] MEDS: oxyCODONE HCL ORAL CONC 5 MG/0.25 ML SYRINGE PO SCH ×4 (02:36→20:49)
[2018-03-03] MEDS: RESP: ALBUTEROL 2.5 MG/IPRATROPIUM 0.5 MG NEB (PRN) INH (03:30)
[2018-03-03] MEDS: CHLORHEXIDINE GLUCONATE 2 % 1 PACK (2 CLOTHS) TOP SCH (03:38)
[2018-03-03 04:34] LABS: AUTOMATED NEUTROPHIL # 16.7 TH/MM3 (1.8-7.7); BASOPHIL # 0.1 TH/MM3 (0-0.2); BASOPHIL % 0.4 % (0.0-2.0); EOSINOPHIL # 0.4 TH/MM3 (0-0.4); EOSINOPHIL % 2.2 % (0.0-4.0); HEMATOCRIT 29.2 % (35.0-46.0); HEMOGLOBIN 9.3 GM/DL (11.6-15.3); LYMPH % 6.6 % (9.0-44.0); LYMPHOCYTE # 1.3 TH/MM3 (1.0-4.8); MEAN CELL VOLUME 87.1 FL (80.0-100.0); MEAN CORPUSCULAR HEMOGLOBIN 27.8 PG (27.0-34.0); MEAN CORPUSCULAR HGB CONC 31.9 % (32.0-36.0); MEAN PLATELET VOLUME 7.5 FL (7.0-11.0); MONO % 7.2 % (0.0-8.0); MONOCYTE # 1.4 TH/MM3 (0-0.9); NEUT % 83.6 % (16.0-70.0); PLATELET COUNT 448 TH/MM3 (150-450); RED BLOOD COUNT 3.35 MIL/MM3 (4.00-5.30); RED CELL DISTRIBUTION WIDTH 16.6 % (11.6-17.2); WHITE BLOOD COUNT 19.9 TH/MM3 (4.0-11.0)
[2018-03-03 04:53] LABS: ALBUMIN 2.3 GM/DL (3.4-5.0); ALT (GPT) 20 U/L (10-53); AST (GOT) 15 U/L (15-37); BICARBONATE 32.8 MEQ/L (21.0-32.0); BLOOD UREA NITROGEN 29 MG/DL (7-18); CALCIUM 9.1 MG/DL (8.5-10.1); CHLORIDE 105 MEQ/L (98-107); CREATININE 0.59 MG/DL (0.50-1.00); GLOMERULAR FILTRATION RATE 103 ML/MIN (>89); GLUCOSE,RANDOM 170 MG/DL (74-106); MAGNESIUM 2.8 MG/DL (1.5-2.5); PHOSPHORUS 3.8 MG/DL (2.5-4.9); SODIUM (NA) 145 MEQ/L (136-145)
[2018-03-03 04:55] LABS: ALKALINE PHOSPHATASE 341 U/L (45-117); TOTAL BILIRUBIN ADULT 0.4 MG/DL (0.2-1.0); TOTAL PROTEIN 7.6 GM/DL (6.4-8.2)
[2018-03-03] MEDS: cloNIDine HCL 0.1 MG TAB PO SCH ×3 (05:28→22:12)
[2018-03-03] MEDS: HEPARIN SODIUM - SQ 10,000 UNITS/ML VIAL SQ SCH ×3 (05:28→22:12)
--- NOTE | 2018-03-03 05:55 | RADRPT ---
EXAM DATE/TIME: 03/03/2018 04:55 [facility] COMPARISON: CHEST SINGLE AP, March 02, 2018, 4:13. INDICATIONS : Shortness of breath, possible pulmonary disease. MEDICAL HISTORY : Sepsis. SURGICAL HISTORY : Gastric bypass. Tonsillectomy. ENCOUNTER: Subsequent ACUITY: 1 month PAIN SCORE: Non-responsive. LOCATION: Bilateral chest FINDINGS: Bilateral large bore and pigtail chest catheters stable in position. Patchy infiltrates in the perip heral zone of both lungs and medial left lower lung, similar in distribution and appearance. CONCLUSION: Persistent bilateral infiltrates. Bilateral chest tubes stable. No pneumothorax seen. Ilya Harris MD on March 03, 2018 at 5:51 Board Certified Radiologist. This report was verified electronically.
[2018-03-03] MEDS: REMOVE OLD DURAGESIC (FENTANYL) PATCH T-DERMAL SCH (08:00)
[2018-03-03] MEDS: DOCUSATE SODIUM 50 MG/SENNA 8.6 MG TAB PO SCH ×2 (08:02→20:49)
[2018-03-03] MEDS: POTASSIUM CHLORIDE 25 MEQ EFFERVESCENT TAB PO SCH (08:02)
[2018-03-03] MEDS: ASPIRIN 81 MG CHEW TAB CHEW SCH (08:02)
[2018-03-03] MEDS: fentaNYL 100 MCG/HR PATCH T-DERMAL SCH (08:02)
[2018-03-03] MEDS: FAMOTIDINE 20 MG TAB PO SCH ×2 (08:03→20:49)
[2018-03-03] MEDS: CHLORHEXIDINE 0.12% (ORAL KIT) 15 ML CUP MT SCH ×2 (09:02→20:00)
[2018-03-03] MEDS: SODIUM CHLORIDE 0.9% FLUSH 10 ML FLUSH IV FLUSH SCH ×2 (09:03→20:53)
--- NOTE | 2018-03-03 11:18 | HHI.CCPN ---
Subjective Remarks/Hospital Course 01/30: 62-year-old female presents for evaluation of increasing shortness of breath and chest pain. She reports 1 week of coughing 3 days of pain in her left chest which radiates to her back, which prompted the visit to the emergency room yesterday. She rates her pain a 6 out of 10. She reports fevers , chills, fatigue, mild nausea. She denies any abdominal pain, vomiting. Patient denies any significant past medical history. Symptom onset was gradual , symptom severity is severe, there are no alleviating factors. Patient states that she has been taking the azithromycin antibiotics that were prescribed to her. She denies any current or historical tobacco use. 01/31: Intubated at 1 AM this morning and placed on mechanical ventilation due to worsening respiratory distress. Currently sedated, orally intubated on mechanical ventilation. 02/01: Remains sedated, orally intubated on mechanical ventilation. Went into A. fib with RVR this morning. Loaded with amiodarone, started on amiodarone drip and given digoxin 0.5 mg IV 02/02: Remains sedated, orally intubated on mechanical ventilation. Right sided pigtail catheter in place with 1+ air leak. Converted to sinus rhythm overnight. Remains on amiodarone gtt. 02/03: Remains sedated, orally intubated on mechanical ventilation. 1+ air leak and right sided pigtail catheter. Tolerating tube feeds. Remains on amiodarone gtt. 02/04: Noted to have pneumothorax on the left side this morning on routine chest x -ray which appeared to be under tension. Right sided pigtail catheter placed by Dr. Peña with reexpansion of lung. Patient remains sedated, orally intubated on mechanical ventilation. 1+ airleak and bilateral chest tubes noted. 02/05: Afebrile. Persistent leukocytosis, bilateral chest tubes continue on wall suction. Chest x-ray pending this a.m.. Patient scheduled for GRANT today, discussed with Dr. Vázquez. Patient continues on amiodarone infusion with sinus rhythm. Postprocedure GRANT,this afternoon, the patient became extremely agitated, noted significant increase in subcu emphysema, peak pressures 50's, O2 saturation significantly decreased to 78-80 %. Stat chest x-ray performed patient was noted to have a significant right pneumothorax. 20 [place] right chest tube placement emergently, with increase in O2 saturation decrease in peak inspiratory pressures. 02/06: Afebrile. Patient with persistent bilateral pneumothoraces, with diffuse bilateral infiltrates and massive SQ emphysema. O2 requirement significantly increased during the night, PIP 38-44. 28 F chest tubes were placed bilaterally with resolution of left pneumothorax and minimization of right pneumothorax, and improved oxygenation. 02/07: TMax 100.1 Chest tubes remain on suction. Resolution of pneumothoraces, continued extensive SQ emphysema. Persistent leukocytosis noted. FiO2 weaned to 50%. 02/08: Late entry note patient seen at 1250. Attempts at CPAP trials, unsuccessful this morning. FiO2 decreased 50%, with adequate oxygenation. 02/09: Afebrile. The patient was transitioned to CPAP trials with pressure support of 22/8. FiO2 currently at 55% continuing to wean. Patient noted with positive fluid balance Lasix 40 mg IV now, patient is initiated on Lasix 40 daily. Patient with positive air leak in chest tubes #1-28 [place] right and #3 pigtail left, both at 2+. Sedation vacation initiated early this a.m. patient neurologically intact. Patient continues on moderate sedation for CPAP to maintain ventilator synchrony plan for transitioning to Precedex. Noted improvement with subcu emphysema. Extensive discussion with patient's daughter regarding a possibility of a tracheostomy if unsuccessful with ventilator weaning process. 02/10: Subcutaneous emphysema has worsened overnight per RN who took care of the patient yesterday, now extending to the upper chest left neck and to the left side of the face including left eyelids. No increase in FiO2 requirement currently on 55%. I have reduced inspiratory pressure from 32 to 28. FiO2 reduced to 50%. Will check a repeat chest x-ray in afternoon if needed. Will request CT surgical evaluation for persistent subcutaneous emphysema despite 2 chest tubes bilaterally 02/11 Patient is sedated with Diprivan, Versed and Fentanyl drips. T: 101.[address] guided chest tube placement by IR today 02/12 No events overnight. Remains sedated and intubated. Afebrile. On PC/AC with PEEP: 8 and FIO2 40%. 02/13 Patient remains intubated and heavily sedated. Afebrile. Repeat CT chest yesterday showed loculated anterior left pneumothorax has resolved. A small left pleural effusion remains present and the 2 left chest tubes appear to be in good position to drain the fluid. Significant improvement in the bilateral chest wall subcutaneous emphysema. 02/14 Patient remains sedated and intubated. Afebrile. On Bumex drip 0.5mg/hr. 02/15 Patient remains intubated and sedated, On Bumex drip 0.5mg/hr with good urine output. T:100.1 02/16 Patient remains sedated and intubated. Off Bumex drip. Afebrile. 02/17 Remains intubated and sedated with Diprivan and Fentanyl drips. Afebrile. For trach tomorrow. 02/18: Trach anticipated for today. Remains sedated. Family at the bedside updated. Coags are normal 02/19: Tracheostomy performed yesterday, patient now with increasing oxygen requirement more critical. Currently on 70% FiO2. A stat CT of the chest ordered by ID shows persistent consolidation multilobar with multiple cavitations. Family updated at the bedside. At this time do not appear to be adequately responding to treatment 02/20: Remains critical with high FiO2 and PEEP requirements. CT chest yesterday showed persistent consolidation and cavitation and a moderate-sized left pleural effusion. Sputum culture again growing MRSA. White count increased to 19,000 today. Left pleural effusion need to be drained, consult IR for CT guided chest tube, due to worsening sepsis 02/21: Patient remains intubated sedated and critically ill. PEEP requirement still remains high and FiO2 is at 50%. Radiology to place new large bore pigtail chest tube for left pleural effusion which is loculated. Will remove the small pigtail chest tube after new one is placed. On sedation hold patient appears to be weak on left side. Check CT of the head also. Grossly fluid overloaded. We will start scheduled dialysis with IV Lasix. Teflaro added to Zyvox yesterday 02/22: Continues to be requiring high oxygen currently at 50% PEEP at 8. New large bore pigtail chest tube placed on the left side yesterday with 200 mL output since placement. Bilateral previous pigtails to waterseal plan to remove the left original pigtail chest tube today. Patient continues to be encephalopathy 02/23: Remains on full ventilator support diuresing well with Lasix but still significantly fluid overloaded. Increase Lasix to 40 every 6 hours, add Diamox for 3 days. Continue chest tubes to suction. Fio2 reduced to 40% PEEP down to 10. MRI and EEG ordered due to persistent encephalopathy 02/24: No acute change in neurological status. EEG in progress. MRI pending. Right upper lobe pneumothorax resolved. Chest tubes 4 remain on -40 cm of water pressure plan for left upper and lower chest tube to be placed to waterseal today. Tracheal sutures in situ area clean dry and intact plan for suture removal of trach site tomorrow. Definition of goals of care to be discussed with palliative/ family conference scheduled for Sunday 02/25. 02/25: Remains on full vent support, PEEP 8, FiO2 50%. Remains on propofol and fentanyl. CXR remains stable. Tolerated PSV for 2 hours yesterday. Start Precedex and clonidine to facilitate more aggressive SBT, change fentanyl to patch. MRI negative for CVA, EEG encephalopathy. 02/26: No events over the night. Patient remains poorly responsive. No change in oxygenation, tolerating CPAP 15/8 and 55% O2. T-max of 99.1. I/O 3368/ 4580. Sister present at bedside. 2 right-sided chest tubes on suction, #4 with continuous air leak, 2 left-sided chest tubes on waterseal with no leak. 02/27: Patient did well over the night. This morning patient is more awake, attempting to follow some simple commands. T-max of 98.7, I/O 3267/4525. Sister and daughter present at bedside. Two right-sided chest tubes on suction , #4 with small air leak, 2 left-sided chest tubes on waterseal with no leak. 02/28: No events overnight. Patient remains awake, following, more interactive. T-max of 99.8, urine output remains adequate. Two right-sided chest tubes on suction, #4 still has air leak, 2 left-sided chest tubes on waterseal with no leak. Morning chest x-ray reviewed no significant change compared to previous one, still with small apical right residual pneumothorax. No family present at bedside. 03/01: No events over the night. Patient remains awake, following commands, tolerating CPAP 15/8 at 55% O2. Great urine output with Lasix. Daughter present at bedside. 03/02: Patient did well overnight. T-max of 99.6. Currently on CPAP 15/8, slightly with Vt 3-400's. I/O 2700/5210. Patient is awake, tracking, following commands. Chest x-ray reviewed no significant change compared to the one from yesterday. 03/03: No events over the night. Patient remains intubated, on Precedex. This morning on CPAP trial breathing in the 40s therefore I switched her to full support ventilation. She continues to have very good urine output. T-max of 99.9. Objective Vital Signs Date Time Temp Pulse Resp B/P (MAP) Pulse Ox O2 Delivery O2 Flow Rate FiO2 03/03/18 10:00 93 03/03/18 08:00 98.8 30 141/65 (90) 97 03/03/18 08:00 50 03/02/18 00:00 Ventilator Intake and Output 03/03/18 03/03/18 03/04/18 08:00 16:00 00:00 Intake Total 1248.5 ml Output Total 750 ml Balance 498.5 ml Result Diagram: 03/03/18 0409 03/03/18 0409 Other Results Laboratory Tests Test 03/03/18 05:20 Blood Gas Puncture Site RT RADIAL Blood Gas Patient Temperature 98.6 Blood Gas HCO3 32 mmol/L (22-26) Blood Gas Base Excess 7.8 mmol/L (-2-2) Blood Gas Oxygen Saturation 94 % (90-100) Arterial Blood pH 7.43 (7.380-7.420) Arterial Blood Partial Pressure CO2 50 mmHg (38-42) Arterial Blood Partial Pressure O2 86 mmHg (61-120) Arterial Blood Oxygen Content 12.6 Vol % (12.0-20.0) Arterial Blood Carboxyhemoglobin 1.4 % (0-4) Arterial Blood Methemoglobin 1.3 % (0-2) Blood Gas Hemoglobin 9.5 G/DL (12.0-16.0) Oxygen Delivery Device VENTILATOR Blood Gas Ventilator Setting PRVC/AC Blood Gas Inspired Oxygen 50 % Imaging Last 24 hours Impressions Chest X-Ray 03/03/18599 Signed Impressions: Service Date/Time: Saturday, March 03, 2018 04:55 - CONCLUSION: Persistent bilateral infiltrates. Bilateral chest tubes stable. No pneumothorax seen. Ilya Harris MD Last 24 hours Impressions Chest X-Ray 03/02/18599 Signed Impressions: Service Date/Time: Friday, March 02, 2018 04:13 - CONCLUSION: Stable bilateral infiltrates and left pleural effusion. Ilya Harris MD Last 24 hours Impressions Chest X-Ray 03/01/18 0600 Signed Impressions: Service Date/Time: Thursday, March 01, 2018 04:39 - CONCLUSION: 1. Stable bilateral patchy infiltrates. 2. Side port of the gastric tube is 2.5 cm above the diaphragm and needs to be advanced approximately 5 cm. Ilya Harris MD Abdomen X-Ray 03/01/18 0000 Signed Impressions: Service Date/Time: Thursday, March 01, 2018 12:04 - CONCLUSION: 1. NG tip in proximal stomach with side-port in distal esophagus. Everett Ng MD Last 24 hours Impressions Chest X-Ray 02/28/18 0600 Signed Impressions: Service Date/Time: February 04:16 - CONCLUSION: 1. 2 right-sided chest tubes with small right apical pneumothorax. 2. 2 left-sided chest tubes without pneumothorax. 3. Left lateral pleural density is stable. 4. Bilateral airspace disease, unchanged Karri Muhammad MD Last 24 hours Impressions Chest X-Ray 02/26/18 0600 Signed Impressions: Service Date/Time: Monday, February 26, 2018 03:24 - CONCLUSION: 1. 2 chest tubes present bilaterally with a small right apical pneumothorax present. Air space disease and loculated fluid on the left are stable. Everett Ng MD Last Impressions Chest X-Ray 02/17/18 0000 Signed Impressions: Service Date/Time: Saturday, February 17, 2018 04:00 - CONCLUSION: 1. Patchy alveolar disease characteristic of edema or pneumonia. There has been no significant change when compared to the prior exam. To Vaughn MD Chest CT 02/12/18 1334 Signed Impressions: Service Date/Time: Monday, February 12, 2018 14:07 - CONCLUSION: 1. The loculated anterior left pneumothorax has resolved. A small left pleural effusion remains present and the 2 left chest tubes appear to be in good position to drain the fluid. 2. Significant improvement in the bilateral chest wall subcutaneous emphysema. 3. Stable severe kinking of the large bore right chest tube. This chest tube also extends into the fissure. Given these 2 findings, this likely not providing any significant suction. Consider removal. 4. Stable severe bilateral airspace consolidation with multifocal areas of cavitation. Michael Perea MD Liver Ultrasound 02/11/18 0000 Signed Impressions: Service Date/Time: Sunday, February 11, 2018 09:34 - CONCLUSION: Nondiagnostic examination CT scan is recommended for further evaluation if clinically indicated. To Vaughn MD Neck CT 02/10/18 0000 Signed Impressions: Service Date/Time: Saturday, February 10, 2018 14:57 - CONCLUSION: 1. Extensive subcutaneous edema in the neck which has dissected cephalad from the chest and is worse on the left side. 2. Support apparatus as above. See chest CT report for evaluation of lungs. 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 No adenopathy. Everett Ng MD Procedures 02/05- Right emergent 20 F chest tube placement 02/06: Left 28 [place] chest tube placement, right chest tube replacement 28 [place] Objective Remarks General - middle-aged lady, awake, ill-appearing, weak HEENT - pupils equal, reactive, sclerae are anicteric, neck supple, no neck rigidity, no JVD, trach is in place CV - regular S1 and S2, no murmurs Chest - still with coarse breath sounds b/l, improved air entry at the bases, no wheezes, bilateral chest tubes [address] Abdomen - soft, non-tender, not distended, BS present Extremities - warm, 1+ edema, + peripheral pulses Neuro - awake, follows some commands, but she remains very weak, moves upper extremities right greater than left, wiggles toes A/P Assessment and Plan Neuro: Acute metabolic encephalopathy Continue Precedex and clonidine Scheduled oxycodone for pain and fentanyl as needed Daily sedation vacation, as tolerated, but she becomes very tachypneic off Precedex Pulm: Acute hypoxemic respiratory failure -improved O2 requirements, vent settings unchanged MRSA pneumonia, with multiple cavitations and consolidation ARDS Moderate sized L pleural effusion s/p 14 F chest tube COPD Bilateral pneumothorax, status post large bore chest tube Persistent small right apical pneumothorax 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 Continue PRVC for now and we will reattempt CPAP trial later today CT chest on 02/19/2018 showed bilateral consolidation extensive, cavitating lesions, moderate loculated left effusion Fluid studies sent 02/22/2018 not consistent with empyema Bilateral pigtail catheters and [address](4 total)-has minimal ouput, but maintain all chest tubes due to pneumo re-expansion Moderate left-sided pleural effusion, new left pigtail chest tube placed by radiology 02/21/2018 , but with only partial drainage Thoracic surgery has followed- Dr. Thornton-not planning on any surgical intervention DuoNeb scheduled and when necessary. Continue right-sided chest tubes to suction but decrease to -20 and left-sided chest tubes to waterseal Renal: Acute kidney injury-resolved Fluid overload -improving Contraction alkalosis -improved -Stopped albumin on 03/02 -Continue Lasix to 40 every 12 hours -Diamox 5001 given on 03/02 with improvement in her alkalosis Cardiovascular: A. fib with RVR (converted to NSR 02/02) Significantly fluid overloaded -02/05 amiodarone infusion discontinued. -02/05 GRANT -no valvular vegetations. EF 55-60%, trace MVR, mild TVR, PAP 35 -Continue Cardizem 60mg Q6 and Lopressor 25mg Q12 GI Elevated LFTs ( trending down) -Hepatitis profile: Negative. US liver: non-diagnostic study -Tube feeds Jevity 1.5 -On Pepcid 20mg BID -Discussed with surgery today planned for J-tube placement early next week ID: MRSA, Enterobacter pneumonia MRSA Bacteremia -Antibiotics per ID. Currently on vancomycin -Monitor for signs of new infections ( Fever, WBC) -ID- Dr. Singleton following -White count trending up however patient remains afebrile Endocrine: Hyperglycemia Medium scale sliding scale insulin dosing Glucose monitoring per ICU protocol Hematology: Anemia -improved H&H post transfusion Unclear etiology, currently being transfused DVT GI prophylaxis - Teds SCDs - Subcutaneous heparin - Pepcid Lines: peripheral IV's. Palliative care is following. Patient is slowly making progress, will most likely will need rn long term care rehab after recovery. Code status: Alternative code Discussed with daughters present at bedside. Vinicio Carvalho MD Mar 03, 2018 11:18
[2018-03-03] MEDS: FUROSEMIDE 40 MG/4 ML VIAL IV PUSH SCH (15:15)
--- NOTE | 2018-03-03 16:22 | HHI.PR ---
Subjective Remarks Patient remains sedated with Diprivan and Fentanyl infusions. On PRVC with PEEP: 8, FIO2:60%. Afebrile. Awake, follows simple commands Was more responsive, mouthing words Did't tolerate CPAP today Objective Vital Signs Vital Signs Date Time Temp Pulse Resp B/P (MAP) Pulse Ox O2 Delivery O2 Flow Rate FiO2 03/03/18 12:17 97 50 03/03/18 12:00 98.6 77 26 169/77 (107) 97 03/03/18 12:00 77 03/03/18 12:00 50 03/03/18 10:00 93 03/03/18 08:00 94 03/03/18 08:00 98.8 82 30 141/65 (90) 97 03/03/18 08:00 50 03/03/18 07:55 97 50 03/03/18 06:00 94 03/03/18 04:02 97 55 03/03/18 04:00 98.2 70 19 114/56 (75) 97 03/03/18 04:00 50 03/03/18 04:00 80 03/03/18 02:00 74 03/03/18 01:44 99 65 03/03/18 00:00 80 03/03/18 00:00 62 03/03/18 00:00 98.7 84 33 96/53 (67) 98 03/02/18 22:43 99 80 03/02/18 22:00 81 03/02/18 20:34 90 100 03/02/18 20:00 100 03/02/18 20:00 99.9 102 34 143/63 (89) 92 03/02/18 20:00 102 03/02/18 19:35 91 60 03/02/18 18:30 65 03/02/18 18:00 86 03/02/18 16:22 96 55 I/O 03/02/18 03/02/18 03/02/18 03/03/18 03/03/18 03/03/18 07:00 15:00 23:00 07:00 15:00 23:00 Intake Total 1745.5 ml 934 ml 1248.5 ml Output Total 2610 ml 1200 ml 750 ml Balance -864.5 ml -266 ml 498.5 ml IV Total 513.5 ml 251 ml 513.5 ml Tube Feeding 1232 ml 623 ml 735 ml Other 60 ml Output Urine Total 2600 ml 1200 ml 750 ml Chest Tube Drainage Total 10 ml 0 ml 0 ml # Bowel Movements 0 0 1 Result Diagram: 03/03/1840803/03/18408 Objective Remarks GENERAL: WBWN Female, on Vent, sedated SKIN: Warm and dry. HEAD: Normocephalic. EYES: No scleral icterus. No injection or drainage. NECK: Supple, trachea midline. No JVD or lymphadenopathy. CARDIOVASCULAR: Regular rate and rhythm without murmurs, gallops, or rubs. RESPIRATORY: Breath sounds equal bilaterally. No accessory muscle use. [address] SQ Emphysema. GASTROINTESTINAL: Abdomen soft, non-tender, nondistended. MUSCULOSKELETAL: No cyanosis, or edema. Neuro: Sedated, A/P Assessment and Plan Acute hypoxemic respiratory failure s/p trach MRSA pneumonia, with multiple cavitations and consolidation s/p Moderate sized left pleural effusion, ? empyema COPD Bilateral pneumothorax, status post large bore chest tube Post Influenza pneumonia Leukocytosis Anemia PLAN: Cont Vent support keep sats >92% Wean 02 Bronchodilators Pulm toilet, trach care Monitor CT output. Continue with tube feeds-On Jevity 1.5@60ml/hr GI/DVT prophylaxis Palliative care is following Going for CT chest Dru Pride MD Mar 03, 2018 16:22
--- NOTE | 2018-03-03 16:58 | RADRPT ---
EXAM DATE/TIME: 03/03/2018 16:02 This report includes an Addendum and supersedes previous reports for this exam. [facility] COMPARISON: CT THORAX W/O CONTRAST, February 19, 2018, 13:36. INDICATIONS : Cough. Evaluate for pneumonia. RADIATION DOSE: 9.59 CTDIvol (mGy) MEDICAL HISTORY : Non-responsive. SURGICAL HISTORY : Gastric bypass. Tonsillectomy. ENCOUNTER: Initial ACUITY: 1 day PAIN SCALE: Non-responsive LOCATION: Bilateral chest TECHNIQUE: Volumetric scanning of the chest was performed. Using automated exposure control and adjustment of t he mA and/or kV according to patient size, radiation dose was kept as low as reasonably achievable to obtain optimal diagnostic quality images. DICOM format image data is available electronically for r eview and comparison. Follow-up recommendations for detected pulmonary nodules are based at a minimum on nodule size and pa tient risk factors according to Fleischner Society Guidelines. FINDINGS: LUNGS: Redemonstration of extensive diffuse bilateral cavitary airspace consolidation with relative sparing of the left upper lobe. Overall, there is no significant interval change. Dominant cavitary lesion in the right upper lobe again measures 4.0 x 2.9 cm unchanged from prior exam. PLEURAE: There are 2 large bore chest tubes terminating in the posterior upper hemithorax near the apices. The right chest tube again is sharply angulated anteriorly. There has been interval placement of a pigta il anterior inferior chest tube which appears well-positioned. A prior anterior right superior hemith orax chest tube has been MEDIASTINUM: The heart and great vessels demonstrate no acute abnormality. There is no mediastinal or hilar lymph adenopathy. AXILLAE: Within normal limits. No lymphadenopathy. MUSCULOSKELETAL: Within normal limits for patient age. MISCELLANEOUS: The visualized upper abdominal organs demonstrate no acute abnormality. CONCLUSION: 1. Romeo Espinoza MD on March 03, 2018 at 16:50 Board Certified Radiologist. This report was verified electronically. ADDENDUM: There was a patrol community service officer error on the original report resulting in no conclusion. Conclusion: 1. The pigtail pleural catheter at the anterior right chest wall terminates in the region of the pect oralis muscles and is not located within the pleural space. Consider removal. 2. The larger bore right chest tube likely tracks within the fissure and is severely kinked and likel y not functioning. 3. 2 left chest tubes remain present and no pneumothorax is present on the left. There is a small rig ht pneumothorax. 4. Severe bilateral airspace consolidation with cystic areas within the right lung. Michael Perea MD on March 09, 2018 at 11:12 Board Certified Radiologist. This report was verified electronically.
[2018-03-03] MEDS: PIPERACIL-TAZO 4.5 GM PREMIX 100 ML IV SCH ×2 (17:03→22:12)
[2018-03-04] VITALS (32 sets, daily range): BP systolic 138–191; BP diastolic 63–84; PULSE 67–89; RESP 18–32; TEMP 97.2–99; O2SAT 94–99
[2018-03-04] MEDS: METOPROLOL TARTRATE 25 MG TAB PO SCH ×2 (01:10→12:36)
[2018-03-04] MEDS: FUROSEMIDE 40 MG/4 ML VIAL IV PUSH SCH ×2 (01:10→15:13)
[2018-03-04] MEDS: oxyCODONE HCL ORAL CONC 5 MG/0.25 ML SYRINGE PO SCH ×4 (02:26→21:00)
[2018-03-04] MEDS: CHLORHEXIDINE GLUCONATE 2 % 1 PACK (2 CLOTHS) TOP SCH (03:40)
[2018-03-04] MEDS: PIPERACIL-TAZO 4.5 GM PREMIX 100 ML IV SCH ×2 (03:40→10:56)
[2018-03-04] MEDS: SODIUM CHLOR 0.9% IV PRN ×2 (04:44→12:41)
[2018-03-04] MEDS: DEXMEDETOMIDINE IV PRN ×2 (04:44→12:41)
[2018-03-04] MEDS: cloNIDine HCL 0.1 MG TAB PO SCH ×3 (05:31→22:00)
[2018-03-04] MEDS: DILTIAZEM HCL 30 MG TAB PO SCH ×4 (05:31→23:13)
[2018-03-04] MEDS: HEPARIN SODIUM - SQ 10,000 UNITS/ML VIAL SQ SCH (05:31)
[2018-03-04] MEDS: INSULIN ASPART SUPPLEMENTAL SCALE SQ SCH ×4 (05:31→23:13)
[2018-03-04 07:56] LABS: AUTOMATED NEUTROPHIL # 14.4 TH/MM3 (1.8-7.7); BASOPHIL # 0.1 TH/MM3 (0-0.2); BASOPHIL % 0.5 % (0.0-2.0); EOSINOPHIL # 0.6 TH/MM3 (0-0.4); EOSINOPHIL % 3.3 % (0.0-4.0); HEMATOCRIT 30.2 % (35.0-46.0); HEMOGLOBIN 9.6 GM/DL (11.6-15.3); LYMPH % 8.2 % (9.0-44.0); LYMPHOCYTE # 1.4 TH/MM3 (1.0-4.8); MEAN CELL VOLUME 87.5 FL (80.0-100.0); MEAN CORPUSCULAR HEMOGLOBIN 27.9 PG (27.0-34.0); MEAN CORPUSCULAR HGB CONC 31.9 % (32.0-36.0); MONO % 5.3 % (0.0-8.0); MONOCYTE # 0.9 TH/MM3 (0-0.9); NEUT % 82.7 % (16.0-70.0); PLATELET COUNT 390 TH/MM3 (150-450); RED BLOOD COUNT 3.45 MIL/MM3 (4.00-5.30); RED CELL DISTRIBUTION WIDTH 16.9 % (11.6-17.2); WHITE BLOOD COUNT 17.4 TH/MM3 (4.0-11.0)
[2018-03-04 08:12] LABS: ALBUMIN 2.2 GM/DL (3.4-5.0); AST (GOT) 15 U/L (15-37); BICARBONATE 34.2 MEQ/L (21.0-32.0); BLOOD UREA NITROGEN 26 MG/DL (7-18); CHLORIDE 105 MEQ/L (98-107); CREATININE 0.65 MG/DL (0.50-1.00); GLOMERULAR FILTRATION RATE 92 ML/MIN (>89); GLUCOSE,RANDOM 204 MG/DL (74-106); MAGNESIUM 2.3 MG/DL (1.5-2.5); SODIUM (NA) 146 MEQ/L (136-145)
[2018-03-04 08:15] LABS: ALKALINE PHOSPHATASE 294 U/L (45-117); ALT (GPT) 21 U/L (10-53); PHOSPHORUS 2.9 MG/DL (2.5-4.9); TOTAL BILIRUBIN ADULT 0.5 MG/DL (0.2-1.0); TOTAL PROTEIN 7.6 GM/DL (6.4-8.2)
[2018-03-04] MEDS: SODIUM CHLORIDE 0.9% FLUSH 10 ML FLUSH IV FLUSH SCH ×2 (08:25→21:00)
[2018-03-04] MEDS: FAMOTIDINE 20 MG TAB PO SCH ×2 (08:25→21:00)
[2018-03-04] MEDS: DOCUSATE SODIUM 50 MG/SENNA 8.6 MG TAB PO SCH ×2 (08:25→21:00)
[2018-03-04] MEDS: CHLORHEXIDINE 0.12% (ORAL KIT) 15 ML CUP MT SCH ×2 (08:26→20:00)
[2018-03-04] MEDS: POTASSIUM CHLORIDE 25 MEQ EFFERVESCENT TAB PO SCH (08:38)
[2018-03-04] MEDS: ASPIRIN 81 MG CHEW TAB CHEW SCH (08:39)
[2018-03-04] MEDS: POTASSIUM CHLOR 20 MEQ PREMIX 100 ML IV PRN (08:40)
--- NOTE | 2018-03-04 10:40 | HHI.PR ---
cc: Kevin Nj MD Subjective Subjective Notes On MV via trach Objective Vitals/I&O Vital Signs Date Time Temp Pulse Resp B/P (MAP) Pulse Ox O2 Delivery O2 Flow Rate FiO2 03/04/18 09:00 72 27 144/67 (92) 96 03/04/18 08:00 99.0 03/04/18 07:56 50 03/02/18 00:00 Ventilator Labs Laboratory Tests Test 03/04/18 06:20 White Blood Count 17.4 Red Blood Count 3.45 Hemoglobin 9.6 Hematocrit 30.2 Mean Corpuscular Volume 87.5 Mean Corpuscular Hemoglobin 27.9 Mean Corpuscular Hemoglobin Concent 31.9 Red Cell Distribution Width 16.9 Platelet Count 390 Mean Platelet Volume 8.0 Neutrophils (%) (Auto) 82.7 Lymphocytes (%) (Auto) 8.2 Monocytes (%) (Auto) 5.3 Eosinophils (%) (Auto) 3.3 Basophils (%) (Auto) 0.5 Neutrophils # (Auto) 14.4 Lymphocytes # (Auto) 1.4 Monocytes # (Auto) 0.9 Eosinophils # (Auto) 0.6 Basophils # (Auto) 0.1 CBC Comment DIFF FINAL Differential Comment Blood Urea Nitrogen 26 Creatinine 0.65 Random Glucose 204 Total Protein 7.6 Albumin 2.2 Calcium Level 9.0 Phosphorus Level 2.9 Magnesium Level 2.3 Alkaline Phosphatase 294 Aspartate Amino Transf (AST/SGOT) 15 Alanine Aminotransferase (ALT/SGPT) 21 Total Bilirubin 0.5 Sodium Level 146 Potassium Level 3.1 Chloride Level 105 Carbon Dioxide Level 34.2 Anion Gap 7 Estimat Glomerular Filtration Rate 92 Date/Time Source Procedure Growth Status 02/19/18 14:03 Blood Peripheral Aerobic Blood Culture - Final NO GROWTH IN 5 DAYS Complete 02/19/18 14:03 Blood Peripheral Anaerobic Blood Culture - Final NO GROWTH IN 5 DAYS Complete 02/22/18 14:19 Fluid Pleural Fluid Fungal Smear - Final NO FUNGAL ELEMENTS SEEN. Resulted 02/22/18 14:19 Fluid Pleural Fluid Fungal Culture - Preliminary NO GROWTH IN 1 WEEK Resulted 02/10/18 13:53 Genital Vaginal Genital Culture - Final Klebsiella Pneumoniae Zelda Albicans Complete 03/02/18 03:15 Sputum Endotracheal Gram Stain - Final Resulted 03/02/18 03:15 Sputum Culture - Preliminary S. Aureus Mrsa Gram Negative Jeremie Resulted 01/31/18 07:42 Urine Catheterized Urine Urine Culture - Final NO GROWTH IN 48 HOURS. Complete Cardiovascular: Regular Lungs: Clear Abdomen: Non-distended, Non-tender Extremities: Other (generalized edema ) A/P Assessment and Plan 62 year old female with VDRF s/p trach placement; multiple medical problems -Will place feeding tube in OR tomorrow afternoon -NPO after MN -Consents on chart Attending Note - Dr. Nj Discussed with family; will place tube in gastric pouch for feeding Will allow for her to go to [facility] after placement. The exam, history, and the medical decision-making described in the above note were completed with the assistance of the mid-level provider. I reviewed and agree with the findings presented. I attest that I had a [id number] encounter with the patient on the same day, and personally performed and documented my assessment and findings in the medical record. Adri Sheldon/First Giovanni OSBORN Mar 04, 2018 10:40 Kevin Nj MD March 08, 2018 16:35
--- NOTE | 2018-03-04 11:05 | HHI.CCPN ---
Subjective Remarks/Hospital Course 01/30: 62-year-old female presents for evaluation of increasing shortness of breath and chest pain. She reports 1 week of coughing 3 days of pain in her left chest which radiates to her back, which prompted the visit to the emergency room yesterday. She rates her pain a 6 out of 10. She reports fevers , chills, fatigue, mild nausea. She denies any abdominal pain, vomiting. Patient denies any significant past medical history. Symptom onset was gradual , symptom severity is severe, there are no alleviating factors. Patient states that she has been taking the azithromycin antibiotics that were prescribed to her. She denies any current or historical tobacco use. 01/31: Intubated at 1 AM this morning and placed on mechanical ventilation due to worsening respiratory distress. Currently sedated, orally intubated on mechanical ventilation. 02/01: Remains sedated, orally intubated on mechanical ventilation. Went into A. fib with RVR this morning. Loaded with amiodarone, started on amiodarone drip and given digoxin 0.5 mg IV 02/02: Remains sedated, orally intubated on mechanical ventilation. Right sided pigtail catheter in place with 1+ air leak. Converted to sinus rhythm overnight. Remains on amiodarone gtt. 02/03: Remains sedated, orally intubated on mechanical ventilation. 1+ air leak and right sided pigtail catheter. Tolerating tube feeds. Remains on amiodarone gtt. 02/04: Noted to have pneumothorax on the left side this morning on routine chest x -ray which appeared to be under tension. Right sided pigtail catheter placed by Dr. Peña with reexpansion of lung. Patient remains sedated, orally intubated on mechanical ventilation. 1+ airleak and bilateral chest tubes noted. 02/05: Afebrile. Persistent leukocytosis, bilateral chest tubes continue on wall suction. Chest x-ray pending this a.m.. Patient scheduled for GRANT today, discussed with Dr. Vázquez. Patient continues on amiodarone infusion with sinus rhythm. Postprocedure GRANT,this afternoon, the patient became extremely agitated, noted significant increase in subcu emphysema, peak pressures 50's, O2 saturation significantly decreased to 78-80 %. Stat chest x-ray performed patient was noted to have a significant right pneumothorax. 20 [place] right chest tube placement emergently, with increase in O2 saturation decrease in peak inspiratory pressures. 02/06: Afebrile. Patient with persistent bilateral pneumothoraces, with diffuse bilateral infiltrates and massive SQ emphysema. O2 requirement significantly increased during the night, PIP 38-44. 28 F chest tubes were placed bilaterally with resolution of left pneumothorax and minimization of right pneumothorax, and improved oxygenation. 02/07: TMax 100.1 Chest tubes remain on suction. Resolution of pneumothoraces, continued extensive SQ emphysema. Persistent leukocytosis noted. FiO2 weaned to 50%. 02/08: Late entry note patient seen at 1250. Attempts at CPAP trials, unsuccessful this morning. FiO2 decreased 50%, with adequate oxygenation. 02/09: Afebrile. The patient was transitioned to CPAP trials with pressure support of 22/8. FiO2 currently at 55% continuing to wean. Patient noted with positive fluid balance Lasix 40 mg IV now, patient is initiated on Lasix 40 daily. Patient with positive air leak in chest tubes #1-28 [place] right and #3 pigtail left, both at 2+. Sedation vacation initiated early this a.m. patient neurologically intact. Patient continues on moderate sedation for CPAP to maintain ventilator synchrony plan for transitioning to Precedex. Noted improvement with subcu emphysema. Extensive discussion with patient's daughter regarding a possibility of a tracheostomy if unsuccessful with ventilator weaning process. 02/10: Subcutaneous emphysema has worsened overnight per RN who took care of the patient yesterday, now extending to the upper chest left neck and to the left side of the face including left eyelids. No increase in FiO2 requirement currently on 55%. I have reduced inspiratory pressure from 32 to 28. FiO2 reduced to 50%. Will check a repeat chest x-ray in afternoon if needed. Will request CT surgical evaluation for persistent subcutaneous emphysema despite 2 chest tubes bilaterally 02/11 Patient is sedated with Diprivan, Versed and Fentanyl drips. T: 101.[address] guided chest tube placement by IR today 02/12 No events overnight. Remains sedated and intubated. Afebrile. On PC/AC with PEEP: 8 and FIO2 40%. 02/13 Patient remains intubated and heavily sedated. Afebrile. Repeat CT chest yesterday showed loculated anterior left pneumothorax has resolved. A small left pleural effusion remains present and the 2 left chest tubes appear to be in good position to drain the fluid. Significant improvement in the bilateral chest wall subcutaneous emphysema. 02/14 Patient remains sedated and intubated. Afebrile. On Bumex drip 0.5mg/hr. 02/15 Patient remains intubated and sedated, On Bumex drip 0.5mg/hr with good urine output. T:100.1 02/16 Patient remains sedated and intubated. Off Bumex drip. Afebrile. 02/17 Remains intubated and sedated with Diprivan and Fentanyl drips. Afebrile. For trach tomorrow. 02/18: Trach anticipated for today. Remains sedated. Family at the bedside updated. Coags are normal 02/19: Tracheostomy performed yesterday, patient now with increasing oxygen requirement more critical. Currently on 70% FiO2. A stat CT of the chest ordered by ID shows persistent consolidation multilobar with multiple cavitations. Family updated at the bedside. At this time do not appear to be adequately responding to treatment 02/20: Remains critical with high FiO2 and PEEP requirements. CT chest yesterday showed persistent consolidation and cavitation and a moderate-sized left pleural effusion. Sputum culture again growing MRSA. White count increased to 19,000 today. Left pleural effusion need to be drained, consult IR for CT guided chest tube, due to worsening sepsis 02/21: Patient remains intubated sedated and critically ill. PEEP requirement still remains high and FiO2 is at 50%. Radiology to place new large bore pigtail chest tube for left pleural effusion which is loculated. Will remove the small pigtail chest tube after new one is placed. On sedation hold patient appears to be weak on left side. Check CT of the head also. Grossly fluid overloaded. We will start scheduled dialysis with IV Lasix. Teflaro added to Zyvox yesterday 02/22: Continues to be requiring high oxygen currently at 50% PEEP at 8. New large bore pigtail chest tube placed on the left side yesterday with 200 mL output since placement. Bilateral previous pigtails to waterseal plan to remove the left original pigtail chest tube today. Patient continues to be encephalopathy 02/23: Remains on full ventilator support diuresing well with Lasix but still significantly fluid overloaded. Increase Lasix to 40 every 6 hours, add Diamox for 3 days. Continue chest tubes to suction. Fio2 reduced to 40% PEEP down to 10. MRI and EEG ordered due to persistent encephalopathy 02/24: No acute change in neurological status. EEG in progress. MRI pending. Right upper lobe pneumothorax resolved. Chest tubes 4 remain on -40 cm of water pressure plan for left upper and lower chest tube to be placed to waterseal today. Tracheal sutures in situ area clean dry and intact plan for suture removal of trach site tomorrow. Definition of goals of care to be discussed with palliative/ family conference scheduled for Sunday 02/25. 02/25: Remains on full vent support, PEEP 8, FiO2 50%. Remains on propofol and fentanyl. CXR remains stable. Tolerated PSV for 2 hours yesterday. Start Precedex and clonidine to facilitate more aggressive SBT, change fentanyl to patch. MRI negative for CVA, EEG encephalopathy. 02/26: No events over the night. Patient remains poorly responsive. No change in oxygenation, tolerating CPAP 15/8 and 55% O2. T-max of 99.1. I/O 3368/ 4580. Sister present at bedside. 2 right-sided chest tubes on suction, #4 with continuous air leak, 2 left-sided chest tubes on waterseal with no leak. 02/27: Patient did well over the night. This morning patient is more awake, attempting to follow some simple commands. T-max of 98.7, I/O 3267/4525. Sister and daughter present at bedside. Two right-sided chest tubes on suction , #4 with small air leak, 2 left-sided chest tubes on waterseal with no leak. 02/28: No events overnight. Patient remains awake, following, more interactive. T-max of 99.8, urine output remains adequate. Two right-sided chest tubes on suction, #4 still has air leak, 2 left-sided chest tubes on waterseal with no leak. Morning chest x-ray reviewed no significant change compared to previous one, still with small apical right residual pneumothorax. No family present at bedside. 03/01: No events over the night. Patient remains awake, following commands, tolerating CPAP 15/8 at 55% O2. Great urine output with Lasix. Daughter present at bedside. 03/02: Patient did well overnight. T-max of 99.6. Currently on CPAP 15/8, slightly with Vt 3-400's. I/O 2700/5210. Patient is awake, tracking, following commands. Chest x-ray reviewed no significant change compared to the one from yesterday. 03/03: No events over the night. Patient remains intubated, on Precedex. This morning on CPAP trial breathing in the 40s therefore I switched her to full support ventilation. She continues to have very good urine output. T-max of 99.9. 03/04: Patient remains awake, on the vent. She is afebrile, with a T-max of 98.8. Very good response to diuresis. CT chest done yesterday was reviewed. Tolerates CPAP every day for a few hours. CT # 4 still with small air leak. Objective Vital Signs Date Time Temp Pulse Resp B/P (MAP) Pulse Ox O2 Delivery O2 Flow Rate FiO2 03/04/18 09:00 72 27 144/67 (92) 96 03/04/18 08:00 99.0 03/04/18 07:56 50 03/02/18 00:00 Ventilator Intake and Output 03/04/18 03/04/18 03/04/18 07:59 15:59 23:59 Intake Total 1253 ml Output Total 2000 ml Balance -747 ml Result Diagram: 03/04/1861903/04/18619 Imaging Last 24 hours Impressions Chest X-Ray 03/03/18 06 Signed Impressions: Service Date/Time: Saturday, March 03, 2018 04:55 - CONCLUSION: Persistent bilateral infiltrates. Bilateral chest tubes stable. No pneumothorax seen. Ilya Harris MD Last 24 hours Impressions Chest X-Ray 03/02/18 06 Signed Impressions: Service Date/Time: Friday, March 02, 2018 04:13 - CONCLUSION: Stable bilateral infiltrates and left pleural effusion. Ilya Harris MD Last 24 hours Impressions Chest X-Ray 03/01/18 06 Signed Impressions: Service Date/Time: Thursday, March 01, 2018 04:39 - CONCLUSION: 1. Stable bilateral patchy infiltrates. 2. Side port of the gastric tube is 2.5 cm above the diaphragm and needs to be advanced approximately 5 cm. Ilya Harris MD Abdomen X-Ray 03/01/18 0000 Signed Impressions: Service Date/Time: Thursday, March 01, 2018 12:04 - CONCLUSION: 1. NG tip in proximal stomach with side-port in distal esophagus. Everett Ng MD Last 24 hours Impressions Chest X-Ray 02/28/18 0600 Signed Impressions: Service Date/Time: February 04:16 - CONCLUSION: 1. 2 right-sided chest tubes with small right apical pneumothorax. 2. 2 left-sided chest tubes without pneumothorax. 3. Left lateral pleural density is stable. 4. Bilateral airspace disease, unchanged Karri Muhammad MD Last 24 hours Impressions Chest X-Ray 02/26/18 0600 Signed Impressions: Service Date/Time: Monday, February 26, 2018 03:24 - CONCLUSION: 1. 2 chest tubes present bilaterally with a small right apical pneumothorax present. Air space disease and loculated fluid on the left are stable. Everett Ng MD Last Impressions Chest X-Ray 02/17/18 0000 Signed Impressions: Service Date/Time: Saturday, February 17, 2018 04:00 - CONCLUSION: 1. Patchy alveolar disease characteristic of edema or pneumonia. There has been no significant change when compared to the prior exam. To Vaughn MD Chest CT 02/12/18 1334 Signed Impressions: Service Date/Time: Monday, February 12, 2018 14:07 - CONCLUSION: 1. The loculated anterior left pneumothorax has resolved. A small left pleural effusion remains present and the 2 left chest tubes appear to be in good position to drain the fluid. 2. Significant improvement in the bilateral chest wall subcutaneous emphysema. 3. Stable severe kinking of the large bore right chest tube. This chest tube also extends into the fissure. Given these 2 findings, this likely not providing any significant suction. Consider removal. 4. Stable severe bilateral airspace consolidation with multifocal areas of cavitation. Michael Perea MD Liver Ultrasound 02/11/18 0000 Signed Impressions: Service Date/Time: Sunday, February 11, 2018 09:34 - CONCLUSION: Nondiagnostic examination CT scan is recommended for further evaluation if clinically indicated. To Vaughn MD Neck CT 02/10/18 0000 Signed Impressions: Service Date/Time: Saturday, February 10, 2018 14:57 - CONCLUSION: 1. Extensive subcutaneous edema in the neck which has dissected cephalad from the chest and is worse on the left side. 2. Support apparatus as above. See chest CT report for evaluation of lungs. 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 No adenopathy. Everett Ng MD Procedures 02/05- Right emergent 20 F chest tube placement 02/06: Left 28 [place] chest tube placement, right chest tube replacement 28 [place] Objective Remarks General - middle-aged lady, awake, ill-appearing, weak HEENT - pupils equal, reactive, sclerae are anicteric, neck supple, no neck rigidity, no JVD, trach is in place CV - regular heart sound, no murmurs, rubs or gallops appreciated Chest - coarse breath sounds b/l, improved air entry at the bases, no wheezes, bilateral chest tubes [address] Abdomen - soft, non-tender, not distended, BS present Extremities - warm, 1+ edema, + peripheral pulses Neuro - awake, follows some commands, but she remains very weak, moves upper extremities right greater than left, wiggles toes A/P Assessment and Plan Neuro: Acute metabolic encephalopathy Continue Precedex and clonidine Scheduled oxycodone for pain and fentanyl as needed Daily sedation vacation, as tolerated, but she becomes very tachypneic off Precedex Pulm: Acute hypoxemic respiratory failure -improved O2 requirements, vent settings unchanged MRSA pneumonia, with multiple cavitations and consolidation ARDS Moderate sized L pleural effusion s/p 14 F chest tube COPD Bilateral pneumothorax, status post large bore chest tube Persistent small right apical pneumothorax 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 PEEP decreased to 5. Daily CPAP trial. Fluid studies sent 02/22/2018 not consistent with empyema Bilateral pigtail catheters and [address](4 total)-has minimal ouput, but maintain all chest tubes due to pneumo re-expansion Moderate left-sided pleural effusion, new left pigtail chest tube placed by radiology 02/21/2018 , but with only partial drainage Thoracic surgery has followed- Dr. Thornton-not planning on any surgical intervention DuoNeb scheduled and when necessary. Continue right-sided chest tubes to suction but decrease to -20 and left-sided chest tubes to waterseal CT chest done on 03/03 reviewed Renal: Acute kidney injury-resolved Fluid overload -improving Contraction alkalosis -improved -Stopped albumin on 03/02 -Continue Lasix to 40 every 12 hours -Diamox 5001 given on 03/02 with improvement in her alkalosis Cardiovascular: A. fib with RVR (converted to NSR 02/02) Significantly fluid overloaded -02/05 amiodarone infusion discontinued. -02/05 GRANT -no valvular vegetations. EF 55-60%, trace MVR, mild TVR, PAP 35 -Continue Cardizem 60mg Q6 and Lopressor 25mg Q12 GI Elevated LFTs ( trending down) -Hepatitis profile: Negative. US liver: non-diagnostic study -Tube feeds Jevity 1.5 -On Pepcid 20mg BID -Discussed with surgery today planned for J-tube placement tomorrow afternoon -N.p.o. after midnight -Hold heparin ID: MRSA, Enterobacter pneumonia MRSA Bacteremia -Antibiotics per ID. Currently on vancomycin and Zosyn -Monitor for signs of new infections ( Fever, WBC) -ID- Dr. Singleton following -White count is trending down Endocrine: Hyperglycemia Medium scale sliding scale insulin dosing Glucose monitoring per ICU protocol Hematology: Anemia -improved H&H post transfusion Unclear etiology, currently being transfused DVT GI prophylaxis - Teds SCDs - Subcutaneous heparin - Pepcid Lines: peripheral IV's. Palliative care is following. Patient is slowly making progress, will most likely will need terminal [facility] rehab after recovery. Code status: Alternative code I discussed in detail patient's condition with both daughters present at bedside and we reviewed the CT chest done yesterday together. Prognosis remains guarded and they understand. Vinicio Carvalho MD Mar 04, 2018 11:05
--- NOTE | 2018-03-04 12:36 | HHI.IDPN ---
Subjective Subjective Remarks neuro improvede resp tirado the same Low grade temps CT chest was reviewed with radiologist Dr lopez: R sided CTs : one in pect myuscle and onaother is severely [id number] Also grew kleb from recent spurtum clx Antibiotics vancomycin zosyn Lines Line sites with no e.o infection Past Medical History Gastric bypass Tonsillectomy Allergies: Coded Allergies: No Known Allergies (Unverified , 01/30/18) Objective . Vital Signs Date Time Temp Pulse Resp B/P (MAP) Pulse Ox O2 Delivery O2 Flow Rate FiO2 03/04/18 11:54 96 50 03/04/18 09:00 72 27 144/67 (92) 96 03/04/18 09:00 72 03/04/18 08:30 69 03/04/18 08:30 69 22 138/63 (88) 95 03/04/18 08:00 75 03/04/18 08:00 99.0 75 29 151/71 (97) 96 03/04/18 07:56 95 50 03/04/18 07:30 80 31 167/76 (106) 96 03/04/18 07:30 80 03/04/18 07:00 72 03/04/18 07:00 72 28 147/67 (93) 98 03/04/18 06:00 70 03/04/18 04:39 97 50 03/04/18 04:00 50 03/04/18 04:00 79 03/04/18 04:00 98.2 79 18 161/73 (102) 98 03/04/18 02:00 67 03/04/18 00:00 97.9 78 20 160/72 (101) 97 03/04/18 00:00 50 03/04/18 00:00 77 03/03/18 22:51 97 50 03/03/18 22:00 68 03/03/18 20:00 50 03/03/18 20:00 77 03/03/18 20:00 98.1 77 22 153/70 (97) 98 03/03/18 19:55 97 50 03/03/18 18:00 79 03/03/18 16:29 100 100 03/03/18 16:28 93 50 03/03/18 16:00 62 03/03/18 16:00 50 03/03/18 16:00 97.9 62 28 141/78 (99) 95 03/03/18 14:00 68 . Laboratory Tests Test 03/03/18 04:09 03/04/18 06:20 White Blood Count 19.9 TH/MM3 17.4 TH/MM3 Red Blood Count 3.35 MIL/MM3 3.45 MIL/MM3 Hemoglobin 9.3 GM/DL 9.6 GM/DL Hematocrit 29.2 % 30.2 % Mean Corpuscular Volume 87.1 FL 87.5 FL Mean Corpuscular Hemoglobin 27.8 PG 27.9 PG Mean Corpuscular Hemoglobin Concent 31.9 % 31.9 % Red Cell Distribution Width 16.6 % 16.9 % Platelet Count 448 TH/MM3 390 TH/MM3 Mean Platelet Volume 7.5 FL 8.0 FL Neutrophils (%) (Auto) 83.6 % 82.7 % Lymphocytes (%) (Auto) 6.6 % 8.2 % Monocytes (%) (Auto) 7.2 % 5.3 % Eosinophils (%) (Auto) 2.2 % 3.3 % Basophils (%) (Auto) 0.4 % 0.5 % Neutrophils # (Auto) 16.7 TH/MM3 14.4 TH/MM3 Lymphocytes # (Auto) 1.3 TH/MM3 1.4 TH/MM3 Monocytes # (Auto) 1.4 TH/MM3 0.9 TH/MM3 Eosinophils # (Auto) 0.4 TH/MM3 0.6 TH/MM3 Basophils # (Auto) 0.1 TH/MM3 0.1 TH/MM3 CBC Comment DIFF FINAL DIFF FINAL Differential Comment Laboratory Tests Test 03/02/18 15:55 03/03/18 04:09 03/04/18 06:20 Blood Urea Nitrogen 26 MG/DL 29 MG/DL 26 MG/DL Creatinine 0.66 MG/DL 0.59 MG/DL 0.65 MG/DL Random Glucose 183 MG/DL 170 MG/DL 204 MG/DL Calcium Level 9.2 MG/DL 9.1 MG/DL 9.0 MG/DL Phosphorus Level 3.3 MG/DL 3.8 MG/DL 2.9 MG/DL Magnesium Level 2.6 MG/DL 2.8 MG/DL 2.3 MG/DL Sodium Level 144 MEQ/L 145 MEQ/L 146 MEQ/L Potassium Level 3.5 MEQ/L 3.5 MEQ/L 3.1 MEQ/L Chloride Level 102 MEQ/L 105 MEQ/L 105 MEQ/L Carbon Dioxide Level 34.7 MEQ/L 32.8 MEQ/L 34.2 MEQ/L Anion Gap 7 MEQ/L 7 MEQ/L 7 MEQ/L Estimat Glomerular Filtration Rate 91 ML/MIN 103 ML/MIN 92 ML/MIN Total Protein 7.6 GM/DL 7.6 GM/DL Albumin 2.3 GM/DL 2.2 GM/DL Alkaline Phosphatase 341 U/L 294 U/L Aspartate Amino Transf (AST/SGOT) 15 U/L 15 U/L Alanine Aminotransferase (ALT/SGPT) 20 U/L 21 U/L Total Bilirubin 0.4 MG/DL 0.5 MG/DL Microbiology Date/Time Source Procedure Growth Status 03/02/18 03:15 Sputum Endotracheal Gram Stain - Final Complete 03/02/18 03:15 Sputum Culture - Final S. Aureus Mrsa Klebsiella Pneumoniae Complete Imaging Last Impressions Chest X-Ray 03/03/18 0600 Signed Impressions: Service Date/Time: Saturday, March 03, 2018 04:55 - CONCLUSION: Persistent bilateral infiltrates. Bilateral chest tubes stable. No pneumothorax seen. Ilya Harris MD Chest CT 03/03/18 0000 Signed Impressions: Service Date/Time: Saturday, March 03, 2018 16:02 - CONCLUSION: 1. Romeo Espinoza MD Abdomen X-Ray 03/01/18 0000 Signed Impressions: Service Date/Time: Thursday, March 01, 2018 12:04 - CONCLUSION: 1. NG tip in proximal stomach with side-port in distal esophagus. Everett Ng MD Brain MRI 02/24/18 0000 Signed Impressions: Service Date/Time: Saturday, February 24, 2018 12:42 - CONCLUSION: Negative exam with no evidence of hemorrhage, mass infarction. Kevin Tello MD Head CT 02/21/18 0000 Signed Impressions: Service Date/Time: February 14:24 - CONCLUSION: 1. Bilateral mastoiditis. 2. Otherwise negative. No acute intracranial process to explain current clinical symptoms Gino Hernandez MD Chest Tube Insertion 02/21/18 0000 Signed Impressions: Service Date/Time: February 14:36 - CONCLUSION: Uncomplicated chest tube placement as above. Karri Muhammad MD Liver Ultrasound 02/11/18 0000 Signed Impressions: Service Date/Time: Sunday, February 11, 2018 09:34 - CONCLUSION: Nondiagnostic examination CT scan is recommended for further evaluation if clinically indicated. To Vaughn MD Neck CT 02/10/18 0000 Signed Impressions: Service Date/Time: Saturday, February 10, 2018 14:57 - CONCLUSION: 1. Extensive subcutaneous edema in the neck which has dissected cephalad from the chest and is worse on the left side. 2. Support apparatus as above. See chest CT report for evaluation of lungs. 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 No adenopathy. Everett Ng MD Physical Exam CONSTITUTIONAL/GENERAL: On the vent SKIN: No jaundice, rashes, or lesions. Ecchymoses on upper extremities. Skin temperature appropriate. generalized edema previous Sq emphysema resolved HEAD: Atraumatic. Normocephalic. EYES: Pupils equal and round and reactive. No scleral icterus. No injection or drainage. ENT: No nasal discharge, orally intubated NECK: Supple, nontender. CARDIOVASCULAR: Regular rate and rhythm without murmurs, gallops, or rubs. RESPIRATORY/CHEST: Symmetric, unlabored respirations. Rhonchi b/l. CTx2 on R and CT x 2 on the L GASTROINTESTINAL: Abdomen soft, nondistended. Obese. No reaction to palpation , not guarding. GENITOURINARY: Without palpable bladder distension. Alexandre catheter in place. MUSCULOSKELETAL: Extremities without clubbing, cyanosis, + 3 diffuse tight edema. . NEUROLOGICAL: awake, opens eyes, + eye contact, + follows commands PSYCHIATRIC: calm LINE: no evidence of infection Assessment & Plan Remarks IMPRESSION MRSA PNA, necrotizing Multiple b/l pneumothoraces ? postinfluenza PNA Loculated hydropneumothorax: ? 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
[2018-03-04] MEDS: VANCOMYCIN INJ 1,250 MG in SODIUM CHLOR 0.9% 250 ML INJ 250 ML IV SCH (12:37)
[2018-03-04] MEDS: cefTRIAXone INJ 2,000 MG in SODIUM CHLORIDE 0.9% INJ 100 ML IV SCH (15:14)
[2018-03-04] MEDS: fentaNYL CITRATE 250 MCG/5 ML AMP IV PUSH PRN (19:20)
[2018-03-04] MEDS: DEXMEDETOMIDINE INJ 1,000 MCG in SODIUM CHLOR 0.9% 250 ML INJ 240 ML IV PRN (21:00)
[2018-03-05] VITALS (27 sets, daily range): BP systolic 124–173; BP diastolic 59–84; PULSE 58–78; RESP 19–51; TEMP 96.9–98.7; O2SAT 90–100
[2018-03-05] MEDS: METOPROLOL TARTRATE 25 MG TAB PO SCH ×2 (01:00→11:42)
[2018-03-05] MEDS: FUROSEMIDE 40 MG/4 ML VIAL IV PUSH SCH ×2 (01:47→13:39)
[2018-03-05] MEDS: oxyCODONE HCL ORAL CONC 5 MG/0.25 ML SYRINGE PO SCH ×4 (01:48→21:56)
[2018-03-05] MEDS: DEXMEDETOMIDINE INJ 1,000 MCG in SODIUM CHLOR 0.9% 250 ML INJ 240 ML IV PRN ×3 (01:53→16:21)
[2018-03-05] MEDS: CHLORHEXIDINE GLUCONATE 2 % 1 PACK (2 CLOTHS) TOP SCH (04:00)
[2018-03-05] MEDS: INSULIN ASPART SUPPLEMENTAL SCALE SQ SCH ×3 (06:00→18:00)
[2018-03-05] MEDS: DILTIAZEM HCL 30 MG TAB PO SCH ×3 (06:03→19:10)
[2018-03-05] MEDS: cloNIDine HCL 0.1 MG TAB PO SCH ×3 (06:03→21:55)
[2018-03-05] MEDS: VANCOMYCIN INJ 1,250 MG in SODIUM CHLOR 0.9% 250 ML INJ 250 ML IV SCH (06:03)
[2018-03-05 06:17] LABS: AUTOMATED NEUTROPHIL # 12.9 TH/MM3 (1.8-7.7); BASOPHIL # 0.2 TH/MM3 (0-0.2); BASOPHIL % 1.2 % (0.0-2.0); EOSINOPHIL # 0.6 TH/MM3 (0-0.4); EOSINOPHIL % 3.9 % (0.0-4.0); HEMATOCRIT 30.8 % (35.0-46.0); HEMOGLOBIN 9.8 GM/DL (11.6-15.3); LYMPH % 10.7 % (9.0-44.0); LYMPHOCYTE # 1.8 TH/MM3 (1.0-4.8); MEAN CELL VOLUME 87.9 FL (80.0-100.0); MEAN CORPUSCULAR HEMOGLOBIN 27.9 PG (27.0-34.0); MEAN CORPUSCULAR HGB CONC 31.8 % (32.0-36.0); MEAN PLATELET VOLUME 8.1 FL (7.0-11.0); NEUT % 78.2 % (16.0-70.0); PLATELET COUNT 348 TH/MM3 (150-450); RED BLOOD COUNT 3.51 MIL/MM3 (4.00-5.30); RED CELL DISTRIBUTION WIDTH 16.5 % (11.6-17.2); WHITE BLOOD COUNT 16.5 TH/MM3 (4.0-11.0)
[2018-03-05 06:39] LABS: ALBUMIN 2.2 GM/DL (3.4-5.0); ALT (GPT) 22 U/L (10-53); AST (GOT) 19 U/L (15-37); BICARBONATE 32.9 MEQ/L (21.0-32.0); BLOOD UREA NITROGEN 24 MG/DL (7-18); CALCIUM 9.3 MG/DL (8.5-10.1); CHLORIDE 106 MEQ/L (98-107); GLOMERULAR FILTRATION RATE 101 ML/MIN (>89); GLUCOSE,RANDOM 161 MG/DL (74-106); MAGNESIUM 2.5 MG/DL (1.5-2.5); SODIUM (NA) 146 MEQ/L (136-145)
[2018-03-05 06:41] LABS: ALKALINE PHOSPHATASE 293 U/L (45-117); TOTAL BILIRUBIN ADULT 0.4 MG/DL (0.2-1.0)
[2018-03-05] MEDS: DOCUSATE SODIUM 50 MG/SENNA 8.6 MG TAB PO SCH ×2 (07:54→21:00)
[2018-03-05] MEDS: FAMOTIDINE 20 MG TAB PO SCH ×2 (07:54→21:55)
[2018-03-05] MEDS: ASPIRIN 81 MG CHEW TAB CHEW SCH (07:54)
[2018-03-05] MEDS: POTASSIUM CHLORIDE 25 MEQ EFFERVESCENT TAB PO SCH (07:55)
[2018-03-05] MEDS: SODIUM CHLORIDE 0.9% FLUSH 10 ML FLUSH IV FLUSH SCH ×2 (07:55→21:56)
[2018-03-05] MEDS: CHLORHEXIDINE 0.12% (ORAL KIT) 15 ML CUP MT SCH ×2 (07:56→21:57)
--- NOTE | 2018-03-05 08:02 | RADRPT ---
EXAM DATE/TIME: 03/05/2018 05:47 [facility] COMPARISON: CT THORAX W/O CONTRAST, March 03, 2018, 16:02. CHEST SINGLE AP, March 03, 2018, 4:55. INDICATIONS : Pneumonia. MEDICAL HISTORY : Sepsis. SURGICAL HISTORY : Tonsillectomy. Gastric bypass. ENCOUNTER: Subsequent ACUITY: 1 month PAIN SCORE: Non-responsive. LOCATION: chest FINDINGS: Portable AP view of the chest demonstrates a normal-sized cardiac silhouette. Tracheostomy and nasoga stric tube remain present. There are 2 chest tubes within each hemithorax. No pneumothorax is identif ied. There is moderate to severe right mid and lower lung zone airspace consolidation and mild left b asilar opacity with a pleural based opacity. The bones demonstrate no acute finding. CONCLUSION: 1. Bilateral chest tubes remain present and no pneumothorax is seen. 2. Stable appearance of the lungs with moderate to severe right mid and lower lung zone airspace cons olidation and left pleural-parenchymal opacity likely representing small pleural effusion with associ ated atelectasis and consolidation. Michael Perea MD on March 05, 2018 at 7:58 Board Certified Radiologist. This report was verified electronically.
--- NOTE | 2018-03-05 08:50 | HHI.CCPN ---
Subjective Remarks/Hospital Course 01/30: 62-year-old female presents for evaluation of increasing shortness of breath and chest pain. She reports 1 week of coughing 3 days of pain in her left chest which radiates to her back, which prompted the visit to the emergency room yesterday. She rates her pain a 6 out of 10. She reports fevers , chills, fatigue, mild nausea. She denies any abdominal pain, vomiting. Patient denies any significant past medical history. Symptom onset was gradual , symptom severity is severe, there are no alleviating factors. Patient states that she has been taking the azithromycin antibiotics that were prescribed to her. She denies any current or historical tobacco use. 01/31: Intubated at 1 AM this morning and placed on mechanical ventilation due to worsening respiratory distress. Currently sedated, orally intubated on mechanical ventilation. 02/01: Remains sedated, orally intubated on mechanical ventilation. Went into A. fib with RVR this morning. Loaded with amiodarone, started on amiodarone drip and given digoxin 0.5 mg IV 02/02: Remains sedated, orally intubated on mechanical ventilation. Right sided pigtail catheter in place with 1+ air leak. Converted to sinus rhythm overnight. Remains on amiodarone gtt. 02/03: Remains sedated, orally intubated on mechanical ventilation. 1+ air leak and right sided pigtail catheter. Tolerating tube feeds. Remains on amiodarone gtt. 02/04: Noted to have pneumothorax on the left side this morning on routine chest x -ray which appeared to be under tension. Right sided pigtail catheter placed by Dr. Peña with reexpansion of lung. Patient remains sedated, orally intubated on mechanical ventilation. 1+ airleak and bilateral chest tubes noted. 02/05: Afebrile. Persistent leukocytosis, bilateral chest tubes continue on wall suction. Chest x-ray pending this a.m.. Patient scheduled for GRANT today, discussed with Dr. Vázquez. Patient continues on amiodarone infusion with sinus rhythm. Postprocedure GRANT,this afternoon, the patient became extremely agitated, noted significant increase in subcu emphysema, peak pressures 50's, O2 saturation significantly decreased to 78-80 %. Stat chest x-ray performed patient was noted to have a significant right pneumothorax. 20 Trin[place] right chest tube placement emergently, with increase in O2 saturation decrease in peak inspiratory pressures. 02/06: Afebrile. Patient with persistent bilateral pneumothoraces, with diffuse bilateral infiltrates and massive SQ emphysema. O2 requirement significantly increased during the night, PIP 38-44. 28 F chest tubes were placed bilaterally with resolution of left pneumothorax and minimization of right pneumothorax, and improved oxygenation. 02/07: TMax 100.1 Chest tubes remain on suction. Resolution of pneumothoraces, continued extensive SQ emphysema. Persistent leukocytosis noted. FiO2 weaned to 50%. 02/08: Late entry note patient seen at 1250. Attempts at CPAP trials, unsuccessful this morning. FiO2 decreased 50%, with adequate oxygenation. 02/09: Afebrile. The patient was transitioned to CPAP trials with pressure support of 22/8. FiO2 currently at 55% continuing to wean. Patient noted with positive fluid balance Lasix 40 mg IV now, patient is initiated on Lasix 40 daily. Patient with positive air leak in chest tubes #1-28 Trinidadian right and #3 pigtail left, both at 2+. Sedation vacation initiated early this a.m. patient neurologically intact. Patient continues on moderate sedation for CPAP to maintain ventilator synchrony plan for transitioning to Precedex. Noted improvement with subcu emphysema. Extensive discussion with patient's daughter regarding a possibility of a tracheostomy if unsuccessful with ventilator weaning process. 02/10: Subcutaneous emphysema has worsened overnight per RN who took care of the patient yesterday, now extending to the upper chest left neck and to the left side of the face including left eyelids. No increase in FiO2 requirement currently on 55%. I have reduced inspiratory pressure from 32 to 28. FiO2 reduced to 50%. Will check a repeat chest x-ray in afternoon if needed. Will request CT surgical evaluation for persistent subcutaneous emphysema despite 2 chest tubes bilaterally 02/11 Patient is sedated with Diprivan, Versed and Fentanyl drips. T: 101.[address] guided chest tube placement by IR today 02/12 No events overnight. Remains sedated and intubated. Afebrile. On PC/AC with PEEP: 8 and FIO2 40%. 02/13 Patient remains intubated and heavily sedated. Afebrile. Repeat CT chest yesterday showed loculated anterior left pneumothorax has resolved. A small left pleural effusion remains present and the 2 left chest tubes appear to be in good position to drain the fluid. Significant improvement in the bilateral chest wall subcutaneous emphysema. 02/14 Patient remains sedated and intubated. Afebrile. On Bumex drip 0.5mg/hr. 02/15 Patient remains intubated and sedated, On Bumex drip 0.5mg/hr with good urine output. T:100.1 02/16 Patient remains sedated and intubated. Off Bumex drip. Afebrile. 02/17 Remains intubated and sedated with Diprivan and Fentanyl drips. Afebrile. For trach tomorrow. 02/18: Trach anticipated for today. Remains sedated. Family at the bedside updated. Coags are normal 02/19: Tracheostomy performed yesterday, patient now with increasing oxygen requirement more critical. Currently on 70% FiO2. A stat CT of the chest ordered by ID shows persistent consolidation multilobar with multiple cavitations. Family updated at the bedside. At this time do not appear to be adequately responding to treatment 02/20: Remains critical with high FiO2 and PEEP requirements. CT chest yesterday showed persistent consolidation and cavitation and a moderate-sized left pleural effusion. Sputum culture again growing MRSA. White count increased to 19,000 today. Left pleural effusion need to be drained, consult IR for CT guided chest tube, due to worsening sepsis 02/21: Patient remains intubated sedated and critically ill. PEEP requirement still remains high and FiO2 is at 50%. Radiology to place new large bore pigtail chest tube for left pleural effusion which is loculated. Will remove the small pigtail chest tube after new one is placed. On sedation hold patient appears to be weak on left side. Check CT of the head also. Grossly fluid overloaded. We will start scheduled dialysis with IV Lasix. Teflaro added to Zyvox yesterday 02/22: Continues to be requiring high oxygen currently at 50% PEEP at 8. New large bore pigtail chest tube placed on the left side yesterday with 200 mL output since placement. Bilateral previous pigtails to waterseal plan to remove the left original pigtail chest tube today. Patient continues to be encephalopathy 02/23: Remains on full ventilator support diuresing well with Lasix but still significantly fluid overloaded. Increase Lasix to 40 every 6 hours, add Diamox for 3 days. Continue chest tubes to suction. Fio2 reduced to 40% PEEP down to 10. MRI and EEG ordered due to persistent encephalopathy 02/24: No acute change in neurological status. EEG in progress. MRI pending. Right upper lobe pneumothorax resolved. Chest tubes 4 remain on -40 cm of water pressure plan for left upper and lower chest tube to be placed to waterseal today. Tracheal sutures in situ area clean dry and intact plan for suture removal of trach site tomorrow. Definition of goals of care to be discussed with palliative/ family conference scheduled for Sunday 02/25. 02/25: Remains on full vent support, PEEP 8, FiO2 50%. Remains on propofol and fentanyl. CXR remains stable. Tolerated PSV for 2 hours yesterday. Start Precedex and clonidine to facilitate more aggressive SBT, change fentanyl to patch. MRI negative for CVA, EEG encephalopathy. 02/26: No events over the night. Patient remains poorly responsive. No change in oxygenation, tolerating CPAP 15/8 and 55% O2. T-max of 99.1. I/O 3368/ 4580. Sister present at bedside. 2 right-sided chest tubes on suction, #4 with continuous air leak, 2 left-sided chest tubes on waterseal with no leak. 02/27: Patient did well over the night. This morning patient is more awake, attempting to follow some simple commands. T-max of 98.7, I/O 3267/4525. Sister and daughter present at bedside. Two right-sided chest tubes on suction , #4 with small air leak, 2 left-sided chest tubes on waterseal with no leak. 02/28: No events overnight. Patient remains awake, following, more interactive. T-max of 99.8, urine output remains adequate. Two right-sided chest tubes on suction, #4 still has air leak, 2 left-sided chest tubes on waterseal with no leak. Morning chest x-ray reviewed no significant change compared to previous one, still with small apical right residual pneumothorax. No family present at bedside. 03/01: No events over the night. Patient remains awake, following commands, tolerating CPAP 15/8 at 55% O2. Great urine output with Lasix. Daughter present at bedside. 03/02: Patient did well overnight. T-max of 99.6. Currently on CPAP 15/8, slightly with Vt 3-400's. I/O 2700/5210. Patient is awake, tracking, following commands. Chest x-ray reviewed no significant change compared to the one from yesterday. 03/03: No events over the night. Patient remains intubated, on Precedex. This morning on CPAP trial breathing in the 40s therefore I switched her to full support ventilation. She continues to have very good urine output. T-max of 99.9. 03/04: Patient remains awake, on the vent. She is afebrile, with a T-max of 98.8. Very good response to diuresis. CT chest done yesterday was reviewed. Tolerates CPAP every day for a few hours. CT # 4 still with small air leak. 03/05: Afebrile. The patient is scheduled for laparoscopic gastric tube placement today. Right-sided chest tubes placed on waterseal this a.m.. Tentative plan to remove right chest tubes post laparoscopic OR procedure today. The patient remains alert and oriented. Patient tolerated CPAP trials for approximately 1 hour yesterday. Patient was up out of bed and stretch her chair for approximately 5 hours yesterday. Objective Vital Signs Date Time Temp Pulse Resp B/P (MAP) Pulse Ox O2 Delivery O2 Flow Rate FiO2 03/05/18 08:02 96 50 03/05/18 08:00 73 03/05/18 08:00 98.7 27 162/75 (104) 03/02/18 00:00 Ventilator Intake and Output 03/05/18 03/05/18 03/06/18 08:00 16:00 00:00 Intake Total 242 ml Output Total 1100 ml Balance -858 ml Result Diagram: 03/05/18 0456 03/05/18 0456 Imaging Last Impressions Chest X-Ray 03/05/18 0600 Signed Impressions: Service Date/Time: Monday, March 05, 2018 05:47 - CONCLUSION: 1. Bilateral chest tubes remain present and no pneumothorax is seen. 2. Stable appearance of the lungs with moderate to severe right mid and lower lung zone airspace consolidation and left pleural-parenchymal opacity likely representing small pleural effusion with associated atelectasis and consolidation. Michael Perea MD Chest CT 03/03/18 0000 Signed Impressions: Service Date/Time: Saturday, March 03, 2018 16:02 - CONCLUSION: 1. Romeo Espinoza MD Abdomen X-Ray 03/01/18 Signed Impressions: Service Date/Time: Thursday, March 01, 2018 12:04 - CONCLUSION: 1. NG tip in proximal stomach with side-port in distal esophagus. Everett Ng MD Brain MRI 02/24/18 0000 Signed Impressions: Service Date/Time: Saturday, February 24, 2018 12:42 - CONCLUSION: Negative exam with no evidence of hemorrhage, mass infarction. Kevin Tello MD Head CT 02/21/18 0000 Signed Impressions: Service Date/Time: February 14:24 - CONCLUSION: 1. Bilateral mastoiditis. 2. Otherwise negative. No acute intracranial process to explain current clinical symptoms Gino Hernandez MD Chest Tube Insertion 02/21/18 0000 Signed Impressions: Service Date/Time: February 14:36 - CONCLUSION: Uncomplicated chest tube placement as above. Karri Muhammad MD Liver Ultrasound 02/11/18 Signed Impressions: Service Date/Time: Sunday, February 11, 2018 09:34 - CONCLUSION: Nondiagnostic examination CT scan is recommended for further evaluation if clinically indicated. To Vaughn MD Neck CT 02/10/18 Signed Impressions: Service Date/Time: Saturday, February 10, 2018 14:57 - CONCLUSION: 1. Extensive subcutaneous edema in the neck which has dissected cephalad from the chest and is worse on the left side. 2. Support apparatus as above. See chest CT report for evaluation of lungs. 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 No adenopathy. Everett Ng MD Last 24 hours Impressions Chest X-Ray 03/03/18599 Signed Impressions: Service Date/Time: Saturday, March 03, 2018 04:55 - CONCLUSION: Persistent bilateral infiltrates. Bilateral chest tubes stable. No pneumothorax seen. Ilya Harris MD Last 24 hours Impressions Chest X-Ray 03/02/18599 Signed Impressions: Service Date/Time: Friday, March 02, 2018 04:13 - CONCLUSION: Stable bilateral infiltrates and left pleural effusion. Ilya Harris MD Last 24 hours Impressions Chest X-Ray 03/01/18599 Signed Impressions: Service Date/Time: Thursday, March 01, 2018 04:39 - CONCLUSION: 1. Stable bilateral patchy infiltrates. 2. Side port of the gastric tube is 2.5 cm above the diaphragm and needs to be advanced approximately 5 cm. Ilya Harris MD Abdomen X-Ray 03/01/18 0000 Signed Impressions: Service Date/Time: Thursday, March 01, 2018 12:04 - CONCLUSION: 1. NG tip in proximal stomach with side-port in distal esophagus. Everett Ng MD Last 24 hours Impressions Chest X-Ray 02/28/18 0600 Signed Impressions: Service Date/Time: February 04:16 - CONCLUSION: 1. 2 right-sided chest tubes with small right apical pneumothorax. 2. 2 left-sided chest tubes without pneumothorax. 3. Left lateral pleural density is stable. 4. Bilateral airspace disease, unchanged Karri Muhammad MD Last 24 hours Impressions Chest X-Ray 02/26/18 0600 Signed Impressions: Service Date/Time: Monday, February 26, 2018 03:24 - CONCLUSION: 1. 2 chest tubes present bilaterally with a small right apical pneumothorax present. Air space disease and loculated fluid on the left are stable. Everett Ng MD Last Impressions Chest X-Ray 02/17/18 0000 Signed Impressions: Service Date/Time: Saturday, February 17, 2018 04:00 - CONCLUSION: 1. Patchy alveolar disease characteristic of edema or pneumonia. There has been no significant change when compared to the prior exam. To Vaughn MD Chest CT 02/12/18 1334 Signed Impressions: Service Date/Time: Monday, February 12, 2018 14:07 - CONCLUSION: 1. The loculated anterior left pneumothorax has resolved. A small left pleural effusion remains present and the 2 left chest tubes appear to be in good position to drain the fluid. 2. Significant improvement in the bilateral chest wall subcutaneous emphysema. 3. Stable severe kinking of the large bore right chest tube. This chest tube also extends into the fissure. Given these 2 findings, this likely not providing any significant suction. Consider removal. 4. Stable severe bilateral airspace consolidation with multifocal areas of cavitation. Michael Perea MD Liver Ultrasound 02/11/18 0000 Signed Impressions: Service Date/Time: Sunday, February 11, 2018 09:34 - CONCLUSION: Nondiagnostic examination CT scan is recommended for further evaluation if clinically indicated. To Vaughn MD Neck CT 02/10/18 0000 Signed Impressions: Service Date/Time: Saturday, February 10, 2018 14:57 - CONCLUSION: 1. Extensive subcutaneous edema in the neck which has dissected cephalad from the chest and is worse on the left side. 2. Support apparatus as above. See chest CT report for evaluation of lungs. 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 No adenopathy. Everett Ng MD Procedures 02/05- Right emergent 20 F chest tube placement 02/06: Left 28 Trin[place]adian chest tube placement, right chest tube replacement 28 Trin[place]adian Objective Remarks General - middle-aged lady, awake, chronically ill-appearing weak HEENT - pupils equal, reactive, sclerae are anicteric, neck supple, no neck rigidity, no JVD, trach is in place CV - regular heart sound, no murmurs, rubs or gallops appreciated Chest - coarse breath sounds b/l, improved air entry at the bases, no wheezes, bilateral chest tubes [address] Abdomen - soft, non-tender, not distended, BS present Extremities - warm, 1+ edema, + peripheral pulses Neuro -GCS 11 T . Currently on Precedex infusion .awake, follows some commands , but she remains very weak, moves upper extremities right greater than left, wiggles toes A/P Assessment and Plan Neuro: Acute metabolic encephalopathy Continue Precedex and clonidine Scheduled oxycodone for pain and fentanyl as needed Daily sedation vacation, as tolerated, but she becomes very tachypneic off Precedex. 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 PEEP decreased to 5. Daily CPAP trial. Fluid studies sent 02/22/2018 not consistent with empyema Bilateral pigtail catheters and [address](4 total)-has minimal output, but maintain all chest tubes due to pneumo re-expansion Moderate left-sided pleural effusion, new left pigtail chest tube placed by radiology 02/21/2018 , but with only partial drainage Thoracic surgery has followed- Dr. Thornton-not planning on any surgical intervention DuoNeb scheduled and when necessary. Right-sided lower chest tube to waterseal , right upper chest tube #4 apical to waterseal small leak still evident and left-sided chest tubes to waterseal. Tentative plan for removal of right sided chest tubes, postoperatively. Patient is scheduled for laparoscopic gastric tube placement today under positive pressure ventilation CT chest done on 03/03 reviewed Renal: Acute kidney injury-resolved Fluid overload -improving Contraction alkalosis -improved -Stopped albumin on 03/02 -Continue Lasix to 40 every 12 hours -Diamox 5001 given on 03/02 with improvement in her alkalosis Cardiovascular: A. fib with RVR (converted to NSR 02/02) Significantly fluid overloaded -02/05 amiodarone infusion discontinued. -02/05 GRANT -no valvular vegetations. EF 55-60%, trace MVR, mild TVR, PAP 35 -Continue Cardizem 60mg Q6 and Lopressor 25mg Q12 GI Elevated LFTs ( trending down) -Hepatitis profile: Negative. US liver: non-diagnostic study -Tube feeds Jevity 1.5 -currently on hold for surgical procedure -On Pepcid 20mg BID -General Surgery - plann for J-tube placement -Hold heparin ID: MRSA, Enterobacter pneumonia MRSA Bacteremia -Antibiotics per ID. Currently on vancomycin and Zosyn -Monitor for signs of new infections ( Fever, WBC) -ID- Dr. Singleton following -White count is trending down Endocrine: Hyperglycemia Medium scale sliding scale insulin dosing Glucose monitoring per ICU protocol Hematology: Anemia -improved H&H post transfusion Unclear etiology, currently being transfused DVT GI prophylaxis - Teds SCDs - Subcutaneous heparin - Pepcid Lines: peripheral IV's. Palliative care is following. 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 Code status: Alternative code Level 3 follow-up. Discussed with [employer] at bedside. Telephone discussion with daughter Alona update her on medical status of patient. Physician Dilcia Zhong MD March 05, 2018 08:49
[2018-03-05] MEDS ORDERED: VECURONIUM BROMIDE 20 MG VIAL IV ONE (12:00)
[2018-03-05] MEDS ORDERED: LACTATED RINGER'S 1000 ML INJ 1,000 ML IV ONE (12:00)
[2018-03-05] MEDS: cefTRIAXone INJ 2,000 MG in SODIUM CHLORIDE 0.9% INJ 100 ML IV SCH (13:39)
[2018-03-05] MEDS ORDERED: BUPIVACAINE/EPINEPHRINE 0.25% PF 10 ML VIAL ONE (14:21)
[2018-03-05] MEDS: fentaNYL CITRATE 250 MCG/5 ML AMP IV PUSH PRN ×2 (15:44→19:43)
--- NOTE | 2018-03-05 17:46 | HHI.IDPN ---
Subjective Subjective Remarks neurologically doing well no fever for PEG placement Antibiotics vancomycin CFTX Lines Line sites with no e.o infection Past Medical History Gastric bypass Tonsillectomy Allergies: Coded Allergies: No Known Allergies (Unverified , 01/30/18) Objective . Vital Signs Date Time Temp Pulse Resp B/P (MAP) Pulse Ox O2 Delivery O2 Flow Rate FiO2 03/05/18 16:59 96 50 03/05/18 16:30 73 25 164/76 (105) 96 03/05/18 16:00 98.6 77 36 173/84 (113) 97 03/05/18 16:00 50 03/05/18 16:00 73 03/05/18 15:00 73 21 138/80 (99) 90 03/05/18 15:00 59 03/05/18 14:00 62 03/05/18 14:00 62 22 152/72 (98) 97 03/05/18 13:19 97 50 03/05/18 13:00 58 19 130/60 (83) 95 03/05/18 13:00 58 03/05/18 12:30 59 03/05/18 12:00 98.5 65 21 141/67 (91) 95 03/05/18 12:00 65 03/05/18 12:00 50 03/05/18 11:30 60 03/05/18 11:00 70 27 168/76 (106) 93 03/05/18 11:00 70 03/05/18 10:35 97 50 03/05/18 10:00 70 32 161/73 (102) 97 03/05/18 10:00 70 03/05/18 09:30 62 03/05/18 09:00 64 33 129/59 (82) 96 03/05/18 09:00 64 03/05/18 08:02 96 50 03/05/18 08:02 50 03/05/18 08:00 73 03/05/18 08:00 50 03/05/18 08:00 98.7 73 27 162/75 (104) 97 03/05/18 07:30 78 27 169/77 (107) 95 03/05/18 07:00 62 36 124/59 (80) 95 03/05/18 07:00 62 03/05/18 05:31 100 50 03/05/18 04:00 50 03/05/18 04:00 96.9 62 35 126/59 (81) 94 03/05/18 01:20 94 50 03/05/18 00:00 50 03/05/18 00:00 97.0 77 51 156/72 (100) 94 03/04/18 21:22 95 50 03/04/18 20:00 97.2 79 23 151/68 (95) 96 03/04/18 20:00 50 03/04/18 18:30 77 26 153/71 (98) 97 03/04/18 18:00 81 03/04/18 18:00 81 27 162/75 (104) 99 . Laboratory Tests Test 03/04/18 06:20 03/05/18 04:56 White Blood Count 17.4 TH/MM3 16.5 TH/MM3 Red Blood Count 3.45 MIL/MM3 3.51 MIL/MM3 Hemoglobin 9.6 GM/DL 9.8 GM/DL Hematocrit 30.2 % 30.8 % Mean Corpuscular Volume 87.5 FL 87.9 FL Mean Corpuscular Hemoglobin 27.9 PG 27.9 PG Mean Corpuscular Hemoglobin Concent 31.9 % 31.8 % Red Cell Distribution Width 16.9 % 16.5 % Platelet Count 390 TH/MM3 348 TH/MM3 Mean Platelet Volume 8.0 FL 8.1 FL Neutrophils (%) (Auto) 82.7 % 78.2 % Lymphocytes (%) (Auto) 8.2 % 10.7 % Monocytes (%) (Auto) 5.3 % 6.0 % Eosinophils (%) (Auto) 3.3 % 3.9 % Basophils (%) (Auto) 0.5 % 1.2 % Neutrophils # (Auto) 14.4 TH/MM3 12.9 TH/MM3 Lymphocytes # (Auto) 1.4 TH/MM3 1.8 TH/MM3 Monocytes # (Auto) 0.9 TH/MM3 1.0 TH/MM3 Eosinophils # (Auto) 0.6 TH/MM3 0.6 TH/MM3 Basophils # (Auto) 0.1 TH/MM3 0.2 TH/MM3 CBC Comment DIFF FINAL DIFF FINAL Differential Comment Laboratory Tests Test 03/04/18 06:20 03/04/18 19:36 03/05/18 04:56 Blood Urea Nitrogen 26 MG/DL 24 MG/DL Creatinine 0.65 MG/DL 0.60 MG/DL Random Glucose 204 MG/DL 161 MG/DL Total Protein 7.6 GM/DL 8.0 GM/DL Albumin 2.2 GM/DL 2.2 GM/DL Calcium Level 9.0 MG/DL 9.3 MG/DL Phosphorus Level 2.9 MG/DL 3.0 MG/DL Magnesium Level 2.3 MG/DL 2.5 MG/DL Alkaline Phosphatase 294 U/L 293 U/L Aspartate Amino Transf (AST/SGOT) 15 U/L 19 U/L Alanine Aminotransferase (ALT/SGPT) 21 U/L 22 U/L Total Bilirubin 0.5 MG/DL 0.4 MG/DL Sodium Level 146 MEQ/L 146 MEQ/L Potassium Level 3.1 MEQ/L 3.5 MEQ/L 3.8 MEQ/L Chloride Level 105 MEQ/L 106 MEQ/L Carbon Dioxide Level 34.2 MEQ/L 32.9 MEQ/L Anion Gap 7 MEQ/L 7 MEQ/L Estimat Glomerular Filtration Rate 92 ML/MIN 101 ML/MIN Imaging Last Impressions Chest X-Ray 03/05/18 0600 Signed Impressions: Service Date/Time: Monday, March 05, 2018 05:47 - CONCLUSION: 1. Bilateral chest tubes remain present and no pneumothorax is seen. 2. Stable appearance of the lungs with moderate to severe right mid and lower lung zone airspace consolidation and left pleural-parenchymal opacity likely representing small pleural effusion with associated atelectasis and consolidation. Michael Perea MD Chest CT 03/03/18 0000 Signed Impressions: Service Date/Time: Saturday, March 03, 2018 16:02 - CONCLUSION: 1. Romeo Espinoza MD Abdomen X-Ray 03/01/18 0000 Signed Impressions: Service Date/Time: Thursday, March 01, 2018 12:04 - CONCLUSION: 1. NG tip in proximal stomach with side-port in distal esophagus. Everett Ng MD Brain MRI 02/24/18 0000 Signed Impressions: Service Date/Time: Saturday, February 24, 2018 12:42 - CONCLUSION: Negative exam with no evidence of hemorrhage, mass infarction. Kevin Tello MD Head CT 02/21/18 0000 Signed Impressions: Service Date/Time: February 14:24 - CONCLUSION: 1. Bilateral mastoiditis. 2. Otherwise negative. No acute intracranial process to explain current clinical symptoms Gino Hernandez MD Chest Tube Insertion 02/21/18 0000 Signed Impressions: Service Date/Time: February 14:36 - CONCLUSION: Uncomplicated chest tube placement as above. Karri Muhammad MD Liver Ultrasound 02/11/18 0000 Signed Impressions: Service Date/Time: Sunday, February 11, 2018 09:34 - CONCLUSION: Nondiagnostic examination CT scan is recommended for further evaluation if clinically indicated. To Vaughn MD Neck CT 02/10/18 0000 Signed Impressions: Service Date/Time: Saturday, February 10, 2018 14:57 - CONCLUSION: 1. Extensive subcutaneous edema in the neck which has dissected cephalad from the chest and is worse on the left side. 2. Support apparatus as above. See chest CT report for evaluation of lungs. 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 No adenopathy. Everett Ng MD Physical Exam CONSTITUTIONAL/GENERAL: On the vent SKIN: No jaundice, rashes, or lesions. Ecchymoses on upper extremities. Skin temperature appropriate. generalized edema previous Sq emphysema resolved HEAD: Atraumatic. Normocephalic. EYES: Pupils equal and round and reactive. No scleral icterus. No injection or drainage. ENT: No nasal discharge, orally intubated NECK: Supple, nontender. CARDIOVASCULAR: Regular rate and rhythm without murmurs, gallops, or rubs. RESPIRATORY/CHEST: Symmetric, unlabored respirations. Less prominent honchi b/ l. CTx2 on R and CT x 2 on the L GASTROINTESTINAL: Abdomen soft, nondistended. Obese. No reaction to palpation , not guarding. GENITOURINARY: Without palpable bladder distension. Alexandre catheter in place. MUSCULOSKELETAL: Extremities without clubbing, cyanosis, lessprminent edema. . NEUROLOGICAL: awake, opens eyes, + eye contact, + follows commands PSYCHIATRIC: calm LINE: no evidence of infection Assessment & Plan Remarks IMPRESSION MRSA PNA, necrotizing Multiple b/l pneumothoraces ? postinfluenza PNA Loculated hydropneumothorax: ? empyema Now growing Kleb Acute VDRF failure to weaning sp trach High grade , sustained MRSA bacteremia GRANT negative Severe leukocytosis and bandemia New PNA, Enterobacter (panS) along with MRSA Empyema and multiple cavitary lesions - essentaially necrotizing PNA - no e/o endocarditis - sp multiple CTs placement MS change : resolving encephalopathy Prognosis is now guarded with improving neuro status ? BP fistula - not seen on CT PLAN cont vancomycin remove R sided CTs cont CFTX repeat sputum clx dw Fr Carlene Hong MD March 05, 2018 17:46
--- NOTE | 2018-03-05 19:05 | HHI.PR ---
cc: Kevin Nj MD Immediate Post Op Note Procedure Date: March 05, 2018 Pre Op Diagnosis: Vent Dependent Respiratory Failure with need for enteral nutrition access Post Op Diagnosis: Same Surgeon: Kevin Nj Electrician(s): Kelly Hutchins CFA Procedure: Laparoscopic gastrostomy tube placement Findings: Tube placed into distal stomach remnant Complications: None Specimen(s) removed: None Estimated blood loss: 5 ml Anesthesia: General Drains: None IVF (500 ml) Patient to: Other ([facility]) Patient Condition: Fair Date/Time of Procedure: SEE SURGICAL CARE RECORD Kevin Nj MD March 05, 2018 19:05
[2018-03-05] MEDS ORDERED: MIDAZOLAM HCL 2 MG/2 ML VIAL ONE (19:12)
--- NOTE | 2018-03-05 19:45 | MP ---
cc: Kevin Nj MD DATE OF OPERATION: 03/05/2018 DATE OF PROCEDURE: 03/05/2018 PROCEDURE PERFORMED: Laparoscopic gastrostomy tube placement PREOPERATIVE DIAGNOSIS: Ventilator dependent, respiratory failure, persistent, with need for semi-permanent enteral feeding access. POSTOPERATIVE DIAGNOSIS: Ventilator dependent, respiratory failure, persistent, with need for semi-permanent enteral feeding access. ANESTHESIA: General endotracheal. SURGEON: Kevin Nj MD [employer] WORKER: Vanessa Buenrostro CFA ESTIMATED BLOOD LOSS: 5 mL. FLUIDS: 500 mL crystalloid. COMPLICATIONS: None. DRAINS: None. SPECIMENS: None. PROCEDURE IN DETAIL: The patient was taken to the operating room and placed on the operating table in the supine position. Alexandre catheter was changed and chest tube dressings were taken down. The abdomen was prepped and draped in the usual fashion. A timeout was taken, confirming the correct patient, site and procedure to be performed. A supraumbilical incision was made and under direct vision, a 5 mm trocar was inserted into the abdominal cavity. It entered the abdominal cavity under direct vision uneventfully. Minimal adhesions were noted. A second 5 mm trocar was placed to the right of the falciform ligament in the upper abdomen. This entered the abdominal cavity under direct vision uneventfully as well. Manipulation of the stomach remnant in this patient with a laparoscopic Viktor-en-Y gastric bypass was accomplished with intestine and omentum moved off of the stomach remnant. A portion of the fundus of the stomach near the antrum was chosen and this was elevated toward the anterior abdominal wall. A laparoscopic gastrostomy tube kit was brought up and a small incision made directly over the stomach on the skin. The needle was inserted through the abdominal wall and entered the stomach. A guidewire was passed into the stomach remnant and the needle withdrawn. While holding the stomach upward, the introducer kit was brought up and the introducer and sheath passed into the stomach over the guidewire. The guidewire and introducer were removed and the 18-Portuguese MYLENE feeding tube was passed down the sheath. The sheath was peeled away. The balloon was inflated. At this point, 5 T-fasteners were placed into the stomach, with care taken not to rupture the balloon. The T-fasteners were pulled up to the anterior abdominal wall, while decreasing insufflation. This allowed for a good purchase and allowed for the stomach to be fastened to the anterior abdominal wall securely. The balloon was brought up to the anterior abdominal wall against the stomach and the flange pushed down on the MYLENE tube. A 0 silk suture was placed around the flange and 2-0 nylon sutures were used to secure the flange in place. 4 x 4's were placed around this and a 1 inch paper tape was placed on the tube to secure it from being pulled out. The patient had replacement of the chest tube dressings and she was then taken back to intensive medical care in stable condition. Sponge and needle counts were reported to be correct. The patient remained hemodynamically stable throughout the procedure. It should be noted that prior to desufflation and removal of the three 5 mm trocars, the tube was flushed and no leakage was noted around the feeding tube site. MD SO Chao/MICHAEL , 07:11 PM , 07:43 PM YANG
--- NOTE | 2018-03-05 20:15 | HHI.PR ---
Subjective Remarks Patient remains sedated with Diprivan and Fentanyl infusions. On PRVC with PEEP: 8, FIO2:60%. Afebrile. Awake, follows simple commands Was more responsive, mouthing words had Laproscopic G-tube placement Rt upper chest tube has air leak Three chest tubes to water seal Objective Vital Signs Vital Signs Date Time Temp Pulse Resp B/P (MAP) Pulse Ox O2 Delivery O2 Flow Rate FiO2 03/05/18 17:15 99 100 03/05/18 16:59 96 50 03/05/18 16:30 73 25 164/76 (105) 96 03/05/18 16:00 98.6 77 36 173/84 (113) 97 03/05/18 16:00 50 03/05/18 16:00 73 03/05/18 15:00 73 21 138/80 (99) 90 03/05/18 15:00 59 03/05/18 14:00 62 03/05/18 14:00 62 22 152/72 (98) 97 03/05/18 13:19 97 50 03/05/18 13:00 58 19 130/60 (83) 95 03/05/18 13:00 58 03/05/18 12:30 59 03/05/18 12:00 98.5 65 21 141/67 (91) 95 03/05/18 12:00 65 03/05/18 12:00 50 03/05/18 11:30 60 03/05/18 11:00 70 27 168/76 (106) 93 03/05/18 11:00 70 03/05/18 10:35 97 50 03/05/18 10:00 70 32 161/73 (102) 97 03/05/18 10:00 70 03/05/18 09:30 62 03/05/18 09:00 64 33 129/59 (82) 96 03/05/18 09:00 64 03/05/18 08:02 96 50 03/05/18 08:02 50 03/05/18 08:00 73 03/05/18 08:00 50 03/05/18 08:00 98.7 73 27 162/75 (104) 97 03/05/18 07:30 78 27 169/77 (107) 95 03/05/18 07:00 62 36 124/59 (80) 95 03/05/18 07:00 62 03/05/18 05:31 100 50 03/05/18 04:00 50 03/05/18 04:00 96.9 62 35 126/59 (81) 94 03/05/18 01:20 94 50 03/05/18 00:00 50 03/05/18 00:00 97.0 77 51 156/72 (100) 94 03/04/18 21:22 95 50 I/O 03/04/18 03/04/18 03/04/18 03/05/18 03/05/18 03/05/18 07:00 15:00 23:00 07:00 15:00 23:00 Intake Total 1504 ml 462.5 ml 1026 ml 504.5 ml 100 ml 810 ml Output Total 2000 ml 1600 ml 1100 ml 1580 ml Balance -496 ml 462.5 ml -574 ml -595.5 ml 100 ml -770 ml IV Total 602 ml 462.5 ml 100 ml 262.5 ml 100 ml 250 ml Tube Feeding 722 ml 686 ml 182 ml 0 ml Other 180 ml 240 ml 60 ml 560 ml Output Urine Total 2000 ml 1600 ml 1100 ml 1575 ml Chest Tube Drainage Total 0 ml 0 ml 0 ml 0 ml Estimated Blood Loss 5 ml # Bowel Movements 0 0 0 0 Result Diagram: 03/05/1845503/05/18 045 Objective Remarks GENERAL: WBWN Female, on Vent, sedated SKIN: Warm and dry. HEAD: Normocephalic. EYES: No scleral icterus. No injection or drainage. NECK: Supple, trachea midline. No JVD or lymphadenopathy. CARDIOVASCULAR: Regular rate and rhythm without murmurs, gallops, or rubs. RESPIRATORY: Breath sounds equal bilaterally. No accessory muscle use. [address] SQ Emphysema. GASTROINTESTINAL: Abdomen soft, non-tender, nondistended. MUSCULOSKELETAL: No cyanosis, or edema. Neuro: Sedated, A/P Assessment and Plan Acute hypoxemic respiratory failure s/p trach MRSA pneumonia, with multiple cavitations and consolidation s/p Moderate sized left pleural effusion, ? empyema COPD Bilateral pneumothorax, status post large bore chest tube Post Influenza pneumonia Leukocytosis Anemia PLAN: Cont Vent support keep sats >92% Wean 02 Bronchodilators Pulm toilet, trach care Monitor CT output. Continue with tube feeds-On Jevity 1.5@60ml/hr GI/DVT prophylaxis Palliative care is following DW has small to mod airleak from Rt upper chest tube If small bronchopleural fistula, will not be seen on Bronch Will monitor airleak. Dru Pride MD March 05, 2018 20:15
[2018-03-05] MEDS: RESP: ALBUTEROL 2.5 MG/IPRATROPIUM 0.5 MG NEB (PRN) INH (20:27)
[2018-03-06] VITALS (19 sets, daily range): BP systolic 139–161; BP diastolic 66–87; PULSE 67–83; RESP 0–51; TEMP 98.2–98.8; O2SAT 94–100
[2018-03-06] MEDS: FUROSEMIDE 40 MG/4 ML VIAL IV PUSH SCH ×2 (00:34→13:34)
[2018-03-06] MEDS: METOPROLOL TARTRATE 25 MG TAB PO SCH ×2 (00:35→13:00)
[2018-03-06] MEDS: VANCOMYCIN INJ 1,250 MG in SODIUM CHLOR 0.9% 250 ML INJ 250 ML IV SCH ×2 (00:35→18:21)
[2018-03-06] MEDS: DILTIAZEM HCL 30 MG TAB PO SCH ×4 (00:35→18:00)
[2018-03-06] MEDS: fentaNYL CITRATE 250 MCG/5 ML AMP IV PUSH PRN (00:36)
[2018-03-06] MEDS: CHLORHEXIDINE GLUCONATE 2 % 1 PACK (2 CLOTHS) TOP SCH (04:00)
[2018-03-06] MEDS: oxyCODONE HCL ORAL CONC 5 MG/0.25 ML SYRINGE PO SCH ×4 (04:27→21:54)
[2018-03-06] MEDS: DEXMEDETOMIDINE INJ 1,000 MCG in SODIUM CHLOR 0.9% 250 ML INJ 240 ML IV PRN ×2 (04:27→18:22)
[2018-03-06] MEDS: RESP: ALBUTEROL 2.5 MG/IPRATROPIUM 0.5 MG NEB (PRN) INH (04:49)
[2018-03-06] MEDS: INSULIN ASPART SUPPLEMENTAL SCALE SQ SCH ×4 (06:00→18:00)
[2018-03-06] MEDS: cloNIDine HCL 0.1 MG TAB PO SCH ×3 (06:16→21:54)
[2018-03-06 06:55] LABS: HEMATOCRIT 27.3 % (35.0-46.0); HEMOGLOBIN 8.8 GM/DL (11.6-15.3); MEAN CELL VOLUME 86.7 FL (80.0-100.0); MEAN CORPUSCULAR HGB CONC 32.2 % (32.0-36.0); MEAN PLATELET VOLUME 8.1 FL (7.0-11.0); PLATELET COUNT 346 TH/MM3 (150-450); RED BLOOD COUNT 3.15 MIL/MM3 (4.00-5.30); RED CELL DISTRIBUTION WIDTH 16.3 % (11.6-17.2); WHITE BLOOD COUNT 17.5 TH/MM3 (4.0-11.0)
--- NOTE | 2018-03-06 06:56 | RADRPT ---
EXAM DATE/TIME: 03/06/2018 06:26 [facility] COMPARISON: CHEST SINGLE AP, March 05, 2018, 5:47. INDICATIONS : Shortness of breath. MEDICAL HISTORY : Sepsis. SURGICAL HISTORY : None. ENCOUNTER: Subsequent ACUITY: 1 month PAIN SCORE: Non-responsive. LOCATION: Bilateral chest FINDINGS: A single view of the chest demonstrates extensive bilateral airspace disease involving most the entir e lateral right and predominately left base. Possible associated left-sided effusion. Bilateral thora costomy tubes, one on the right and 2 on the left. Small, 1 cm right apical pneumothorax. No pneumoth orax identified on the left. Heart size is normal. Tracheostomy and nasogastric tubes are stable in p osition. CONCLUSION: 1. Persistent bilateral airspace disease, right greater than left. Possible associated left-sided eff usion. 2. Bilateral thoracostomy tubes, one on the right and 2 on the left. Small, 1 cm right apical pneumot horax. Gino Hernandez MD on March 06, 2018 at 6:53 Board Certified Radiologist. This report was verified electronically.
[2018-03-06 07:35] LABS: BICARBONATE 31.5 MEQ/L (21.0-32.0); CREATININE 0.6 MG/DL (0.50-1.00); MAGNESIUM 2.3 MG/DL (1.5-2.5)
[2018-03-06 07:36] LABS: PHOSPHORUS 3.6 MG/DL (2.5-4.9)
[2018-03-06] MEDS: REMOVE OLD DURAGESIC (FENTANYL) PATCH T-DERMAL SCH (08:00)
[2018-03-06] MEDS: fentaNYL 100 MCG/HR PATCH T-DERMAL SCH (10:11)
[2018-03-06] MEDS: FAMOTIDINE 20 MG TAB PO SCH ×2 (10:11→21:53)
[2018-03-06] MEDS: POTASSIUM CHLORIDE 25 MEQ EFFERVESCENT TAB PO SCH (10:11)
[2018-03-06] MEDS: DOCUSATE SODIUM 50 MG/SENNA 8.6 MG TAB PO SCH (10:12)
[2018-03-06] MEDS: ASPIRIN 81 MG CHEW TAB CHEW SCH (10:12)
[2018-03-06] MEDS: SODIUM CHLORIDE 0.9% FLUSH 10 ML FLUSH IV FLUSH SCH ×2 (10:12→21:53)
[2018-03-06] MEDS: CHLORHEXIDINE 0.12% (ORAL KIT) 15 ML CUP MT SCH ×2 (10:13→21:53)
[2018-03-06] MEDS: cefTRIAXone INJ 2,000 MG in SODIUM CHLORIDE 0.9% INJ 100 ML IV SCH (13:34)
[2018-03-06] MEDS: HEPARIN SODIUM - SQ 10,000 UNITS/ML VIAL SQ SCH ×2 (13:34→21:54)
--- NOTE | 2018-03-06 15:12 | HHI.CCPN ---
Subjective Remarks/Hospital Course 01/30: 62-year-old female presents for evaluation of increasing shortness of breath and chest pain. She reports 1 week of coughing 3 days of pain in her left chest which radiates to her back, which prompted the visit to the emergency room yesterday. She rates her pain a 6 out of 10. She reports fevers , chills, fatigue, mild nausea. She denies any abdominal pain, vomiting. Patient denies any significant past medical history. Symptom onset was gradual , symptom severity is severe, there are no alleviating factors. Patient states that she has been taking the azithromycin antibiotics that were prescribed to her. She denies any current or historical tobacco use. 01/31: Intubated at 1 AM this morning and placed on mechanical ventilation due to worsening respiratory distress. Currently sedated, orally intubated on mechanical ventilation. 02/01: Remains sedated, orally intubated on mechanical ventilation. Went into A. fib with RVR this morning. Loaded with amiodarone, started on amiodarone drip and given digoxin 0.5 mg IV 02/02: Remains sedated, orally intubated on mechanical ventilation. Right sided pigtail catheter in place with 1+ air leak. Converted to sinus rhythm overnight. Remains on amiodarone gtt. 02/03: Remains sedated, orally intubated on mechanical ventilation. 1+ air leak and right sided pigtail catheter. Tolerating tube feeds. Remains on amiodarone gtt. 02/04: Noted to have pneumothorax on the left side this morning on routine chest x -ray which appeared to be under tension. Right sided pigtail catheter placed by Dr. Peña with reexpansion of lung. Patient remains sedated, orally intubated on mechanical ventilation. 1+ airleak and bilateral chest tubes noted. 02/05: Afebrile. Persistent leukocytosis, bilateral chest tubes continue on wall suction. Chest x-ray pending this a.m.. Patient scheduled for GRANT today, discussed with Dr. Vázquez. Patient continues on amiodarone infusion with sinus rhythm. Postprocedure GRANT,this afternoon, the patient became extremely agitated, noted significant increase in subcu emphysema, peak pressures 50's, O2 saturation significantly decreased to 78-80 %. Stat chest x-ray performed patient was noted to have a significant right pneumothorax. 20 [place] right chest tube placement emergently, with increase in O2 saturation decrease in peak inspiratory pressures. 02/06: Afebrile. Patient with persistent bilateral pneumothoraces, with diffuse bilateral infiltrates and massive SQ emphysema. O2 requirement significantly increased during the night, PIP 38-44. 28 F chest tubes were placed bilaterally with resolution of left pneumothorax and minimization of right pneumothorax, and improved oxygenation. 02/07: TMax 100.1 Chest tubes remain on suction. Resolution of pneumothoraces, continued extensive SQ emphysema. Persistent leukocytosis noted. FiO2 weaned to 50%. 02/08: Late entry note patient seen at 1250. Attempts at CPAP trials, unsuccessful this morning. FiO2 decreased 50%, with adequate oxygenation. 02/09: Afebrile. The patient was transitioned to CPAP trials with pressure support of 22/8. FiO2 currently at 55% continuing to wean. Patient noted with positive fluid balance Lasix 40 mg IV now, patient is initiated on Lasix 40 daily. Patient with positive air leak in chest tubes #1-28 [place] right and #3 pigtail left, both at 2+. Sedation vacation initiated early this a.m. patient neurologically intact. Patient continues on moderate sedation for CPAP to maintain ventilator synchrony plan for transitioning to Precedex. Noted improvement with subcu emphysema. Extensive discussion with patient's daughter regarding a possibility of a tracheostomy if unsuccessful with ventilator weaning process. 02/10: Subcutaneous emphysema has worsened overnight per RN who took care of the patient yesterday, now extending to the upper chest left neck and to the left side of the face including left eyelids. No increase in FiO2 requirement currently on 55%. I have reduced inspiratory pressure from 32 to 28. FiO2 reduced to 50%. Will check a repeat chest x-ray in afternoon if needed. Will request CT surgical evaluation for persistent subcutaneous emphysema despite 2 chest tubes bilaterally 02/11 Patient is sedated with Diprivan, Versed and Fentanyl drips. T: 101.[address] guided chest tube placement by IR today 02/12 No events overnight. Remains sedated and intubated. Afebrile. On PC/AC with PEEP: 8 and FIO2 40%. 02/13 Patient remains intubated and heavily sedated. Afebrile. Repeat CT chest yesterday showed loculated anterior left pneumothorax has resolved. A small left pleural effusion remains present and the 2 left chest tubes appear to be in good position to drain the fluid. Significant improvement in the bilateral chest wall subcutaneous emphysema. 02/14 Patient remains sedated and intubated. Afebrile. On Bumex drip 0.5mg/hr. 02/15 Patient remains intubated and sedated, On Bumex drip 0.5mg/hr with good urine output. T:100.1 02/16 Patient remains sedated and intubated. Off Bumex drip. Afebrile. 02/17 Remains intubated and sedated with Diprivan and Fentanyl drips. Afebrile. For trach tomorrow. 02/18: Trach anticipated for today. Remains sedated. Family at the bedside updated. Coags are normal 02/19: Tracheostomy performed yesterday, patient now with increasing oxygen requirement more critical. Currently on 70% FiO2. A stat CT of the chest ordered by ID shows persistent consolidation multilobar with multiple cavitations. Family updated at the bedside. At this time do not appear to be adequately responding to treatment 02/20: Remains critical with high FiO2 and PEEP requirements. CT chest yesterday showed persistent consolidation and cavitation and a moderate-sized left pleural effusion. Sputum culture again growing MRSA. White count increased to 19,000 today. Left pleural effusion need to be drained, consult IR for CT guided chest tube, due to worsening sepsis 02/21: Patient remains intubated sedated and critically ill. PEEP requirement still remains high and FiO2 is at 50%. Radiology to place new large bore pigtail chest tube for left pleural effusion which is loculated. Will remove the small pigtail chest tube after new one is placed. On sedation hold patient appears to be weak on left side. Check CT of the head also. Grossly fluid overloaded. We will start scheduled dialysis with IV Lasix. Teflaro added to Zyvox yesterday 02/22: Continues to be requiring high oxygen currently at 50% PEEP at 8. New large bore pigtail chest tube placed on the left side yesterday with 200 mL output since placement. Bilateral previous pigtails to waterseal plan to remove the left original pigtail chest tube today. Patient continues to be encephalopathy 02/23: Remains on full ventilator support diuresing well with Lasix but still significantly fluid overloaded. Increase Lasix to 40 every 6 hours, add Diamox for 3 days. Continue chest tubes to suction. Fio2 reduced to 40% PEEP down to 10. MRI and EEG ordered due to persistent encephalopathy 02/24: No acute change in neurological status. EEG in progress. MRI pending. Right upper lobe pneumothorax resolved. Chest tubes 4 remain on -40 cm of water pressure plan for left upper and lower chest tube to be placed to waterseal today. Tracheal sutures in situ area clean dry and intact plan for suture removal of trach site tomorrow. Definition of goals of care to be discussed with palliative/ family conference scheduled for Sunday 02/25. 02/25: Remains on full vent support, PEEP 8, FiO2 50%. Remains on propofol and fentanyl. CXR remains stable. Tolerated PSV for 2 hours yesterday. Start Precedex and clonidine to facilitate more aggressive SBT, change fentanyl to patch. MRI negative for CVA, EEG encephalopathy. 02/26: No events over the night. Patient remains poorly responsive. No change in oxygenation, tolerating CPAP 15/8 and 55% O2. T-max of 99.1. I/O 3368/ 4580. Sister present at bedside. 2 right-sided chest tubes on suction, #4 with continuous air leak, 2 left-sided chest tubes on waterseal with no leak. 02/27: Patient did well over the night. This morning patient is more awake, attempting to follow some simple commands. T-max of 98.7, I/O 3267/4525. Sister and daughter present at bedside. Two right-sided chest tubes on suction , #4 with small air leak, 2 left-sided chest tubes on waterseal with no leak. 02/28: No events overnight. Patient remains awake, following, more interactive. T-max of 99.8, urine output remains adequate. Two right-sided chest tubes on suction, #4 still has air leak, 2 left-sided chest tubes on waterseal with no leak. Morning chest x-ray reviewed no significant change compared to previous one, still with small apical right residual pneumothorax. No family present at bedside. 03/01: No events over the night. Patient remains awake, following commands, tolerating CPAP 15/8 at 55% O2. Great urine output with Lasix. Daughter present at bedside. 03/02: Patient did well overnight. T-max of 99.6. Currently on CPAP 15/8, slightly with Vt 3-400's. I/O 2700/5210. Patient is awake, tracking, following commands. Chest x-ray reviewed no significant change compared to the one from yesterday. 03/03: No events over the night. Patient remains intubated, on Precedex. This morning on CPAP trial breathing in the 40s therefore I switched her to full support ventilation. She continues to have very good urine output. T-max of 99.9. 03/04: Patient remains awake, on the vent. She is afebrile, with a T-max of 98.8. Very good response to diuresis. CT chest done yesterday was reviewed. Tolerates CPAP every day for a few hours. CT # 4 still with small air leak. 03/05: Afebrile. The patient is scheduled for laparoscopic gastric tube placement today. Right-sided chest tubes placed on waterseal this a.m.. Tentative plan to remove right chest tubes post laparoscopic OR procedure today. The patient remains alert and oriented. Patient tolerated CPAP trials for approximately 1 hour yesterday. Patient was up out of bed and stretch her chair for approximately 5 hours yesterday. 03/06: Afebrile. The patient is status post laparoscopic gastric tube placement last evening, draining bilious fluid. Patient up out of bed and stretch her chair, alert currently on CPAP. Chest x-ray this a.m. showed small right apical pneumothorax, noted small air leak in right upper chest tube, he is on 20 cm of suction Objective Vital Signs Date Time Temp Pulse Resp B/P (MAP) Pulse Ox O2 Delivery O2 Flow Rate FiO2 03/06/18 12:31 96 55 03/06/18 12:02 98.2 78 24 159/71 (100) Intake and Output 03/06/18 03/06/18 03/07/18 08:00 16:00 00:00 Intake Total 120 ml Output Total 1750 ml Balance -1630 ml Result Diagram: 03/06/18 0600 03/06/18 0600 Imaging Last Impressions Chest X-Ray 03/06/18 0000 Signed Impressions: Service Date/Time: Tuesday, March 06, 2018 06:26 - CONCLUSION: 1. Persistent bilateral airspace disease, right greater than left. Possible associated left-sided effusion. 2. Bilateral thoracostomy tubes, one on the right and 2 on the left. Small, 1 cm right apical pneumothorax. Gino Hernandez MD Chest CT 03/03/18 0000 Signed Impressions: Service Date/Time: Saturday, March 03, 2018 16:02 - CONCLUSION: 1. Romeo Espinoza MD Abdomen X-Ray 03/01/18 0000 Signed Impressions: Service Date/Time: Thursday, March 01, 2018 12:04 - CONCLUSION: 1. NG tip in proximal stomach with side-port in distal esophagus. Everett Ng MD Brain MRI 02/24/18 0000 Signed Impressions: Service Date/Time: Saturday, February 24, 2018 12:42 - CONCLUSION: Negative exam with no evidence of hemorrhage, mass infarction. Kevin Tello MD Head CT 02/21/18 0000 Signed Impressions: Service Date/Time: February 14:24 - CONCLUSION: 1. Bilateral mastoiditis. 2. Otherwise negative. No acute intracranial process to explain current clinical symptoms Gino Hernandez MD Chest Tube Insertion 02/21/18 0000 Signed Impressions: Service Date/Time: February 14:36 - CONCLUSION: Uncomplicated chest tube placement as above. Karri Muhammad MD Liver Ultrasound 02/11/18 0000 Signed Impressions: Service Date/Time: Sunday, February 11, 2018 09:34 - CONCLUSION: Nondiagnostic examination CT scan is recommended for further evaluation if clinically indicated. To Vaughn MD Neck CT 02/10/18 0000 Signed Impressions: Service Date/Time: Saturday, February 10, 2018 14:57 - CONCLUSION: 1. Extensive subcutaneous edema in the neck which has dissected cephalad from the chest and is worse on the left side. 2. Support apparatus as above. See chest CT report for evaluation of lungs. 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 No adenopathy. Everett Ng MD Last Impressions Chest X-Ray 03/05/18 0600 Signed Impressions: Service Date/Time: Monday, March 05, 2018 05:47 - CONCLUSION: 1. Bilateral chest tubes remain present and no pneumothorax is seen. 2. Stable appearance of the lungs with moderate to severe right mid and lower lung zone airspace consolidation and left pleural-parenchymal opacity likely representing small pleural effusion with associated atelectasis and consolidation. Michael Perea MD Chest CT 03/03/18 0000 Signed Impressions: Service Date/Time: Saturday, March 03, 2018 16:02 - CONCLUSION: 1. Romeo Espinoza MD Abdomen X-Ray 03/01/18 0000 Signed Impressions: Service Date/Time: Thursday, March 01, 2018 12:04 - CONCLUSION: 1. NG tip in proximal stomach with side-port in distal esophagus. Everett Ng MD Brain MRI 02/24/18 0000 Signed Impressions: Service Date/Time: Saturday, February 24, 2018 12:42 - CONCLUSION: Negative exam with no evidence of hemorrhage, mass infarction. Kevin Tello MD Head CT 02/21/18 0000 Signed Impressions: Service Date/Time: February 14:24 - CONCLUSION: 1. Bilateral mastoiditis. 2. Otherwise negative. No acute intracranial process to explain current clinical symptoms Gino Hernandez MD Chest Tube Insertion 02/21/18 0000 Signed Impressions: Service Date/Time: February 14:36 - CONCLUSION: Uncomplicated chest tube placement as above. Karri Muhammad MD Liver Ultrasound 02/11/18 0000 Signed Impressions: Service Date/Time: Sunday, February 11, 2018 09:34 - CONCLUSION: Nondiagnostic examination CT scan is recommended for further evaluation if clinically indicated. To Vaughn MD Neck CT 02/10/18 0000 Signed Impressions: Service Date/Time: Saturday, February 10, 2018 14:57 - CONCLUSION: 1. Extensive subcutaneous edema in the neck which has dissected cephalad from the chest and is worse on the left side. 2. Support apparatus as above. See chest CT report for evaluation of lungs. 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 No adenopathy. Everett Ng MD Last 24 hours Impressions Chest X-Ray 03/03/18 0600 Signed Impressions: Service Date/Time: Saturday, March 03, 2018 04:55 - CONCLUSION: Persistent bilateral infiltrates. Bilateral chest tubes stable. No pneumothorax seen. Ilya Harris MD Last 24 hours Impressions Chest X-Ray 03/02/18 0600 Signed Impressions: Service Date/Time: Friday, March 02, 2018 04:13 - CONCLUSION: Stable bilateral infiltrates and left pleural effusion. Ilay Harris MD Last 24 hours Impressions Chest X-Ray 03/01/18 0600 Signed Impressions: Service Date/Time: Thursday, March 01, 2018 04:39 - CONCLUSION: 1. Stable bilateral patchy infiltrates. 2. Side port of the gastric tube is 2.5 cm above the diaphragm and needs to be advanced approximately 5 cm. Ilya Harris MD Abdomen X-Ray 03/01/18 0000 Signed Impressions: Service Date/Time: Thursday, March 01, 2018 12:04 - CONCLUSION: 1. NG tip in proximal stomach with side-port in distal esophagus. Everett Ng MD Last 24 hours Impressions Chest X-Ray 02/28/18 0600 Signed Impressions: Service Date/Time: February 04:16 - CONCLUSION: 1. 2 right-sided chest tubes with small right apical pneumothorax. 2. 2 left-sided chest tubes without pneumothorax. 3. Left lateral pleural density is stable. 4. Bilateral airspace disease, unchanged Karri Muhammad MD Last 24 hours Impressions Chest X-Ray 02/26/18 0600 Signed Impressions: Service Date/Time: Monday, February 26, 2018 03:24 - CONCLUSION: 1. 2 chest tubes present bilaterally with a small right apical pneumothorax present. Air space disease and loculated fluid on the left are stable. Everett Ng MD Last Impressions Chest X-Ray 02/17/18 0000 Signed Impressions: Service Date/Time: Saturday, February 17, 2018 04:00 - CONCLUSION: 1. Patchy alveolar disease characteristic of edema or pneumonia. There has been no significant change when compared to the prior exam. To Vaughn MD Chest CT 02/12/18 1334 Signed Impressions: Service Date/Time: Monday, February 12, 2018 14:07 - CONCLUSION: 1. The loculated anterior left pneumothorax has resolved. A small left pleural effusion remains present and the 2 left chest tubes appear to be in good position to drain the fluid. 2. Significant improvement in the bilateral chest wall subcutaneous emphysema. 3. Stable severe kinking of the large bore right chest tube. This chest tube also extends into the fissure. Given these 2 findings, this likely not providing any significant suction. Consider removal. 4. Stable severe bilateral airspace consolidation with multifocal areas of cavitation. Michael Perea MD Liver Ultrasound 02/11/18 0000 Signed Impressions: Service Date/Time: Sunday, February 11, 2018 09:34 - CONCLUSION: Nondiagnostic examination CT scan is recommended for further evaluation if clinically indicated. To Vaughn MD Neck CT 02/10/18 0000 Signed Impressions: Service Date/Time: Saturday, February 10, 2018 14:57 - CONCLUSION: 1. Extensive subcutaneous edema in the neck which has dissected cephalad from the chest and is worse on the left side. 2. Support apparatus as above. See chest CT report for evaluation of lungs. 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 No adenopathy. Everett Ng MD Procedures 02/05- Right emergent 20 F chest tube placement 02/06: Left 28 [place]ian chest tube placement, right chest tube replacement 28 [place] 03/06: Laparoscopic gastric tube placed Objective Remarks General - middle-aged lady, awake, chronically ill-appearing weak, sitting in stretcher chair smiling HEENT - pupils equal, reactive, sclerae are anicteric, neck supple, no neck rigidity, no JVD, trach is in place CV - regular heart sound, no murmurs, rubs or gallops appreciated Chest - coarse breath sounds b/l, improved air entry at the bases, no wheezes, bilateral chest tubes [address] Abdomen - soft, non-tender, not distended, BS present Extremities - warm, 1+ edema, + peripheral pulses Neuro -GCS 11 T . Currently on Precedex 1.3 mcg/hr infusion .awake, follows some commands, but she remains very weak, Moves extremities x 4 A/P Assessment and Plan Neuro: Acute metabolic encephalopathy Continue Precedex and clonidine Scheduled oxycodone for pain and fentanyl as needed Daily sedation vacation, as tolerated, but she becomes very tachypneic off Precedex. 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 PEEP decreased to 5. Daily CPAP trial Fluid studies sent 02/22/2018 not consistent with empyema Bilateral pigtail catheters and [address](4 total)-has minimal output, but maintain all chest tubes due to pneumo re-expansion Moderate left-sided pleural effusion, new left pigtail chest tube placed by radiology 02/21/2018 , but with only partial drainage Thoracic surgery has followed- Dr. Thornton-not planning on any surgical intervention DuoNeb scheduled and when necessary. Right-sided lower chest tube to waterseal , right upper chest tube #4 apical to waterseal small leak still evident and left-sided chest tubes to waterseal. Tentative plan for removal of right sided chest tubes, postoperatively. CT chest done on 03/03 reviewed Renal: Acute kidney injury-resolved Fluid overload -improving Contraction alkalosis -improved -Stopped albumin on 03/02 -Continue Lasix to 40 every 12 hours -Diamox 5001 given on 03/02 with improvement in her alkalosis Cardiovascular: A. fib with RVR (converted to NSR 02/02) Significantly fluid overloaded -02/05 amiodarone infusion discontinued. -02/05 GRANT -no valvular vegetations. EF 55-60%, trace MVR, mild TVR, PAP 35 -Continue Cardizem 60mg Q6 and Lopressor 25mg Q12 GI Elevated LFTs ( trending down) -Hepatitis profile: Negative. US liver: non-diagnostic study -Tube feeds Jevity 1.5 -currently on hold S/P G-tube placed -On Pepcid 20mg BID -General Surgery - S/P Laparoscopic G tube placement ID: MRSA, Enterobacter pneumonia MRSA Bacteremia -Antibiotics per ID. Currently on vancomycin and Zosyn -Monitor for signs of new infections ( Fever, WBC) -ID- Dr. Singleton following -White count is trending down Endocrine: Hyperglycemia Medium scale sliding scale insulin dosing Glucose monitoring per ICU protocol Hematology: Anemia -improved H&H post transfusion Monitor CBC MSK: PT evaluation and treat Patient up out of bed to stretcher chair DVT GI prophylaxis - Teds SCDs - Subcutaneous heparin - Pepcid Lines: peripheral IV's. Palliative care is following. Patient is slowly making progress, will most likely will need watermaster rehab after recovery. Code status: Alternative code Level 3 follow-up. Discussed with PROTECTIVE SIGNAL REPAIRER HELPER at bedside. Physician Dilcia Zhong MD March 06, 2018 15:12
--- NOTE | 2018-03-06 16:09 | HHI.PR ---
Subjective Subjective Notes Sitting up in chair Objective Vitals/I&O Vital Signs Date Time Temp Pulse Resp B/P (MAP) Pulse Ox O2 Delivery O2 Flow Rate FiO2 03/06/18 12:31 96 55 03/06/18 12:02 98.2 78 24 159/71 (100) Labs Laboratory Tests Test 03/06/18 06:00 White Blood Count 17.5 Red Blood Count 3.15 Hemoglobin 8.8 Hematocrit 27.3 Mean Corpuscular Volume 86.7 Mean Corpuscular Hemoglobin 28.0 Mean Corpuscular Hemoglobin Concent 32.2 Red Cell Distribution Width 16.3 Platelet Count 346 Mean Platelet Volume 8.1 Blood Urea Nitrogen 26 Creatinine 0.60 Random Glucose 137 Calcium Level 9.0 Phosphorus Level 3.6 Magnesium Level 2.3 Sodium Level 146 Potassium Level 3.5 Chloride Level 106 Carbon Dioxide Level 31.5 Anion Gap 9 Estimat Glomerular Filtration Rate 101 Date/Time Source Procedure Growth Status 02/19/18 14:03 Blood Peripheral Aerobic Blood Culture - Final NO GROWTH IN 5 DAYS Complete 02/19/18 14:03 Blood Peripheral Anaerobic Blood Culture - Final NO GROWTH IN 5 DAYS Complete 02/22/18 14:19 Fluid Pleural Fluid Fungal Smear - Final NO FUNGAL ELEMENTS SEEN. Resulted 02/22/18 14:19 Fluid Pleural Fluid Fungal Culture - Preliminary NO GROWTH IN 1 WEEK Resulted 02/10/18 13:53 Genital Vaginal Genital Culture - Final Klebsiella Pneumoniae Zelda Albicans Complete 03/06/18 00:00 Sputum Endotracheal Gram Stain - Final Resulted 03/06/18 00:00 Sputum Endotracheal Sputum Culture Pending Resulted 01/31/18 07:42 Urine Catheterized Urine Urine Culture - Final NO GROWTH IN 48 HOURS. Complete Lungs: Clear Narrative Exam Minimal drainage around G-tube site A/P Assessment and Plan 62 year old female with VDRF s/p trach placement; multiple medical problems POD #1 laparoscopic gastrostomy tube placement Will pull NG and start trickle feeds via G-tube. Discussed with nurse and family. Kevin Cheng MD March 06, 2018 16:08
--- NOTE | 2018-03-06 16:30 | HHI.HCPN ---
Reason for visit a. To assist with evaluation and management of symptoms including: dyspnea; depression, weakness b. To assist medical decision maker(s) with: better understanding of current medical conditions; weighing benefits/burdens of medical treatment options; making medical treatment decisions. . Subjective/Interval History Patient seen for follow-up to evaluate symptoms of dyspnea, and address new symptoms of depression and weakness. She is awake in bed, sitting up with a noticeable grimace at the center of her forehead. She denies any pain. She is unable to speak but eloy words and can nod her head. She tolerated a spontaneous breathing trial yesterday for 11 hours before becoming slightly hypertensive. She was placed back on a rate to rest overnight. She is mildly tachypneic with a respiratory rate up to 24 but shakes her head "no" when asked if she has any significant distress from breathing or shortness of breath. She was placed back on a CPAP trial this morning at 55% FiO2, weaned down from 60% overnight. She was requiring slightly more oxygen after anesthesia and placement of her laparoscopic gastrostomy tube placement 03/05. Through questioning, it was discovered that the primary source of her discomfort was dry oral mucosa and mouth discomfort. Mouth swabs were used to moisten and provide mouth care, which the patient noted made her feel better. Patient had notable weakness when trying to use the mouth swab on her own, unable to advance the swab to her lips and appeared to have some altered proprioception in aiming swab at her mouth. Her daughter noted that she appeared depressed and she mouth the words to the nurse to "call the police. I do not want to do this anymore." Review of her medications indicates she is not being treated for depression at this time. There has been no previous history of depression. . . Family/friend interactions I spoke with her daughter Alona at bedside and updated her as to current clinical status, laboratory values and prognosis going forward. She wished to discuss these items with her sister, Zenobia, who is planning to come down from [place] for visit with her mother and support. She also discussed this with Zenobia, who wished to schedule a telephone conference with her sister at 1 PM on 03/07 to allow her time to process the information during her trip south. We discussed her mother's new finding of depression today with Alona and we did gently broach the subject that while this may be a situational depression, we will need to consider if treatment with medication is unsuccessful, if in fact the mother does not wish to do this anymore and would want to consider withdrawal of support. It is the family's wish to attempt antidepressant medication first, prior to making such a weighty decision. This was discussed with Dr. Cooper and she wishes to balance the need for medication, which may have a sedating side effect, and compromise patients weaning from the ventilator. . Advance Directives Living Will: Never completed Health Care Surrogate: Never completed Durable Power of Employee Benefits Attorney: Never completed Advance Directive Specifics Date completed: Patient has never completed an advanced directive. . Health Care Surrogate(s): There is no written designation of healthcare surrogate. . Documented care wishes: There is no written documentation of healthcare goals/preferences. . Objective Vital Signs Date Time Temp Pulse Resp B/P (MAP) Pulse Ox O2 Delivery O2 Flow Rate FiO2 03/06/18 12:31 96 55 03/06/18 12:02 98.2 78 24 159/71 (100) 97 03/06/18 12:00 55 03/06/18 08:34 98 55 03/06/18 08:00 60 03/06/18 06:00 70 03/06/18 04:50 94 60 03/06/18 04:00 60 03/06/18 04:00 75 03/06/18 04:00 98.6 75 0 161/77 (105) 97 03/06/18 02:00 67 03/06/18 01:10 95 60 03/06/18 00:00 98.8 68 51 139/66 (90) 98 03/06/18 00:00 60 03/06/18 00:00 68 03/05/18 22:00 63 03/05/18 20:32 94 60 03/05/18 20:00 98.0 63 41 131/62 (85) 90 03/05/18 20:00 60 03/05/18 20:00 63 03/05/18 17:15 99 100 03/05/18 16:59 96 50 03/05/18 16:30 73 25 164/76 (105) 96 03/05/18 16:00 98.6 77 36 173/84 (113) 97 03/05/18 16:00 50 03/05/18 16:00 73 Intake & Output 03/06/18 03/06/18 06:59 18:59 Intake Total 120 ml Output Total 1750 ml Balance -1630 ml Tube Feeding 0 ml Other 120 ml Output Urine Total 1650 ml Gastric Drainage Total 100 ml Chest Tube Drainage Total 0 ml # Bowel Movements 0 Physical Exam CONSTITUTIONAL/GENERAL: This is an obese patient in the medical intensive care unit bed. Awake, alert today. TUBES/LINES/DRAINS: Tracheostomy; bilateral chest tubes x2 on each side; peripheral IV; sequential compressive devices. NG tube, G-tube.. SKIN: Pale. No jaundice, rashes. Ecchymoses on upper extremities. No wounds seen anteriorly. Skin temperature appropriate. Not diaphoretic. EYES: Sclerae / conjunctivae clear. Pupils equal and round. Sclerae clear. ENT: Hearing grossly normal. Nose without bleeding or purulent drainage. Dry, crusted oral mucosa, mouth care given. NECK: Tracheostomy midline. CARDIOVASCULAR: Regular rate/rhythm without murmurs, gallops, or rubs. RESPIRATORY/CHEST: Bilateral chest tubes spontaneous breathing trial in process. Symmetric respirations on vent. Decreased air movement at bases. Lungs clear. GASTROINTESTINAL: Abdomen obese, large, soft. Active bowel sounds. Midline G- tube intact., 2 on each side GENITOURINARY: Without palpable bladder distension. Alexandre catheter in place. MUSCULOSKELETAL: Extremities without clubbing, cyanosis. NEUROLOGICAL: Follows simple commands. Moves all extremities PSYCHIATRIC: No obvious hallucinations or other evidence of psychosis. Affect flat today. . Diagnostic Tests Laboratory Laboratory Tests Test 03/04/18 06:20 03/04/18 19:36 03/05/18 04:56 03/06/18 06:00 White Blood Count 17.4 TH/MM3 (4.0-11.0) 16.5 TH/MM3 (4.0-11.0) 17.5 TH/MM3 (4.0-11.0) Red Blood Count 3.45 MIL/MM3 (4.00-5.30) 3.51 MIL/MM3 (4.00-5.30) 3.15 MIL/MM3 (4.00-5.30) Hemoglobin 9.6 GM/DL (11.6-15.3) 9.8 GM/DL (11.6-15.3) 8.8 GM/DL (11.6-15.3) Hematocrit 30.2 % (35.0-46.0) 30.8 % (35.0-46.0) 27.3 % (35.0-46.0) Mean Corpuscular Volume 87.5 FL (80.0-100.0) 87.9 FL (80.0-100.0) 86.7 FL (80.0-100.0) Mean Corpuscular Hemoglobin 27.9 PG (27.0-34.0) 27.9 PG (27.0-34.0) 28.0 PG (27.0-34.0) Mean Corpuscular Hemoglobin Concent 31.9 % (32.0-36.0) 31.8 % (32.0-36.0) 32.2 % (32.0-36.0) Red Cell Distribution Width 16.9 % (11.6-17.2) 16.5 % (11.6-17.2) 16.3 % (11.6-17.2) Platelet Count 390 TH/MM3 (150-450) 348 TH/MM3 (150-450) 346 TH/MM3 (150-450) Mean Platelet Volume 8.0 FL (7.0-11.0) 8.1 FL (7.0-11.0) 8.1 FL (7.0-11.0) Neutrophils (%) (Auto) 82.7 % (16.0-70.0) 78.2 % (16.0-70.0) Lymphocytes (%) (Auto) 8.2 % (9.0-44.0) 10.7 % (9.0-44.0) Monocytes (%) (Auto) 5.3 % (0.0-8.0) 6.0 % (0.0-8.0) Eosinophils (%) (Auto) 3.3 % (0.0-4.0) 3.9 % (0.0-4.0) Basophils (%) (Auto) 0.5 % (0.0-2.0) 1.2 % (0.0-2.0) Neutrophils # (Auto) 14.4 TH/MM3 (1.8-7.7) 12.9 TH/MM3 (1.8-7.7) Lymphocytes # (Auto) 1.4 TH/MM3 (1.0-4.8) 1.8 TH/MM3 (1.0-4.8) Monocytes # (Auto) 0.9 TH/MM3 (0-0.9) 1.0 TH/MM3 (0-0.9) Eosinophils # (Auto) 0.6 TH/MM3 (0-0.4) 0.6 TH/MM3 (0-0.4) Basophils # (Auto) 0.1 TH/MM3 (0-0.2) 0.2 TH/MM3 (0-0.2) CBC Comment DIFF FINAL DIFF FINAL Differential Comment Blood Urea Nitrogen 26 MG/DL (7-18) 24 MG/DL (7-18) 26 MG/DL (7-18) Creatinine 0.65 MG/DL (0.50-1.00) 0.60 MG/DL (0.50-1.00) 0.60 MG/DL (0.50-1.00) Random Glucose 204 MG/DL (74-106) 161 MG/DL (74-106) 137 MG/DL (74-106) Total Protein 7.6 GM/DL (6.4-8.2) 8.0 GM/DL (6.4-8.2) Albumin 2.2 GM/DL (3.4-5.0) 2.2 GM/DL (3.4-5.0) Calcium Level 9.0 MG/DL (8.5-10.1) 9.3 MG/DL (8.5-10.1) 9.0 MG/DL (8.5-10.1) Phosphorus Level 2.9 MG/DL (2.5-4.9) 3.0 MG/DL (2.5-4.9) 3.6 MG/DL (2.5-4.9) Magnesium Level 2.3 MG/DL (1.5-2.5) 2.5 MG/DL (1.5-2.5) 2.3 MG/DL (1.5-2.5) Alkaline Phosphatase 294 U/L (45-117) 293 U/L (45-117) Aspartate Amino Transf (AST/SGOT) 15 U/L (15-37) 19 U/L (15-37) Alanine Aminotransferase (ALT/SGPT) 21 U/L (10-53) 22 U/L (10-53) Total Bilirubin 0.5 MG/DL (0.2-1.0) 0.4 MG/DL (0.2-1.0) Sodium Level 146 MEQ/L (136-145) 146 MEQ/L (136-145) 146 MEQ/L (136-145) Potassium Level 3.1 MEQ/L (3.5-5.1) 3.5 MEQ/L (3.5-5.1) 3.8 MEQ/L (3.5-5.1) 3.5 MEQ/L (3.5-5.1) Chloride Level 105 MEQ/L (98-107) 106 MEQ/L (98-107) 106 MEQ/L (98-107) Carbon Dioxide Level 34.2 MEQ/L (21.0-32.0) 32.9 MEQ/L (21.0-32.0) 31.5 MEQ/L (21.0-32.0) Anion Gap 7 MEQ/L (5-15) 7 MEQ/L (5-15) 9 MEQ/L (5-15) Estimat Glomerular Filtration Rate 92 ML/MIN (>89) 101 ML/MIN (>89) 101 ML/MIN (>89) Result Diagram: 03/06/18 0600 03/06/18 0600 Microbiology Microbiology Date/Time Source Procedure Growth Status 03/06/18 00:00 Sputum Endotracheal Gram Stain - Final Resulted 03/06/18 00:00 Sputum Endotracheal Sputum Culture Pending Resulted Imaging Last Impressions Chest X-Ray 03/06/18 0000 Signed Impressions: Service Date/Time: Tuesday, March 06, 2018 06:26 - CONCLUSION: 1. Persistent bilateral airspace disease, right greater than left. Possible associated left-sided effusion. 2. Bilateral thoracostomy tubes, one on the right and 2 on the left. Small, 1 cm right apical pneumothorax. Gino Hernandez MD Chest CT 03/03/18 0000 Signed Impressions: Service Date/Time: Saturday, March 03, 2018 16:02 - CONCLUSION: 1. Romeo Espinoza MD Abdomen X-Ray 03/01/18 0000 Signed Impressions: Service Date/Time: Thursday, March 01, 2018 12:04 - CONCLUSION: 1. NG tip in proximal stomach with side-port in distal esophagus. Everett Ng MD Brain MRI 02/24/18 0000 Signed Impressions: Service Date/Time: Saturday, February 24, 2018 12:42 - CONCLUSION: Negative exam with no evidence of hemorrhage, mass infarction. Kevin Tello MD Head CT 02/21/18 0000 Signed Impressions: Service Date/Time: February 14:24 - CONCLUSION: 1. Bilateral mastoiditis. 2. Otherwise negative. No acute intracranial process to explain current clinical symptoms Gino Hernandez MD Chest Tube Insertion 02/21/18 0000 Signed Impressions: Service Date/Time: February 14:36 - CONCLUSION: Uncomplicated chest tube placement as above. Karri Muhammad MD Liver Ultrasound 02/11/18 0000 Signed Impressions: Service Date/Time: Sunday, February 11, 2018 09:34 - CONCLUSION: Nondiagnostic examination CT scan is recommended for further evaluation if clinically indicated. To Vaughn MD Neck CT 02/10/18 0000 Signed Impressions: Service Date/Time: Saturday, February 10, 2018 14:57 - CONCLUSION: 1. Extensive subcutaneous edema in the neck which has dissected cephalad from the chest and is worse on the left side. 2. Support apparatus as above. See chest CT report for evaluation of lungs. 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 No adenopathy. Everett Ng MD Procedures * 01/31/18 -Intubation/mechanical ventilation right subclavian * Central line placement * Bilateral chest tube placement * Transesophageal echo * 02/18/18 -tracheostomy * 03/06-laparoscopic G-tube placement . Assessment and Plan Disease Oriented Problem List: (1) PNA (pneumonia) Comment: MRSA + Enterobacter (2) Respiratory failure (3) ARDS (adult respiratory distress syndrome) (4) Sepsis Comment: MRSA (5) Anemia (6) Hypoalbuminemia (7) Bilateral pneumothoraces Comment: Recurrent and multiple pneumothoraces . (8) ARF (acute renal failure) Comment: resolved (9) Encephalopathy Comment: Now improving. . Symptom Scale: (1) Pain 0-10 Scale: Unable to quantify Comment: No known prehospitalization pain syndromes. Current sources of discomfort might include trach; NG tube; vascular access lines; restraints; Alexandre catheter; chest tubes; prolonged bedbound status. . (2) Dyspnea 0-10 Scale: Unable to quantify Comment: Patient with underlying pneumonia and bilateral pneumothoraces. Dyspnea currently managed with ventilatory support. Now tolerating longer CPAP trials. . (3) Encephalopathy 0-10 Scale: Unable to quantify Comment: source of prolonged encephalopathy is unclear -- metabolic? durgs? hypoxic? Appears to be improving after change from propofol+ iv fentanyl to Precedex. . . Pertinent Non-Medical Issues Psychosocial: Has a male partner . She normally lives with him in a manufactured home. He is a smoker. Her 2 daughters and sister come in from [place] regularly . Spiritual: Patient is mormon uatsdin. Grain Shoveler visits would be appreciated. Legal: There are no advance directives. Without written designation of a healthcare surrogate, proxy decision making would fall to both adult daughters. Ethical issues impacting care: Patient is currently incapacitated to make her own medical decisions. It is unclear if/when she will become capacitated to do so. . Important Contacts Alona Federico (daughter and co-health care proxy) [phone] Zenobia Clay (daughter and co-health care proxy) [phone] Brett Mackay (boyfriend -- NO DECISION MAKING RIGHTS unless there is written documentation saying otherwise) [phone] . Prognosis On the one hand, other than her morbid obesity, this patient has very few health problems and has managed to stay out of the hospital. Ordinarily, we would expect her to respond well to treatment and improve. This patient declined incredibly quickly and has very severe respiratory disease in spite of the fact that she has no known underlying chronic respiratory illness.She has multiple pneumothoraces. She has developed Enterobacter pneumonia on top of her MRSA pneumonia. After 30 days of hospitalization, patient now showing neurological improvement and now tolerating long CPAP trials. If encephalopathy continues to improve and we are able to extend CPAP trials, chances for meaningful recovery improve. . Code Status: Alternative Code Plan == Code Status: ALT CODE (no defibrillation; no chest compression) == Medical Decision Making: Patient is currently incapacitated to make her own healthcare decisions. As she is now showing evidence of neurological improvement , anticipate it appears she may regain capacity to make her own health care decisions. Since there is no written designation of healthcare surrogacy that we are aware of, proxy decision making would fall to her 2 adult children -- Alona Federico and Zenobia Clay. They both have accepted this role. == Goals of medical treatment: Goals of treatment remain aggressive short of no chest compressions or defibrillation. Family was seriously considering withdrawal of life support, but now that patient is showing signs of neurological recovery , they continue to desire aggressive care. == Symptoms: * Dyspnea: Patient with underlying pneumonia and bilateral pneumothoraces. Dyspnea currently managed with ventilatory support. Bilateral chest tubes x2 On each side in place. Patient status post tracheostomy on 02/18, Ongoing CPAP trials. Seems to be improving finally. No further recommendations at this time. * Pain: No known pre-hospitalization pain syndromes. Current sources of discomfort might include tracheosotmy; NG tube; vascular access lines; restraints; Alexandre catheter; chest tubes; prolonged bedbound status. Fentanyl drip has been discontinued, currently on oxycodone 5 mg [id number]. Fentanyl 100mcg patch added 02/25/18. Palliative care recommends switching oxycodone 5 mg from around the clock to PRN given addition of Fentanyl patch. Fentanyl 50mcg q1hr AND Morphine 2mg q2hr PRN available. None given in the past 24 hours. Palliative care recommends discontinuation of Fentanyl 50mcg IV PRN and keeping Morphine 2mg IV PRN (only one IV opioid recommended at a time). * Encephalopathy: Improving, focusing on family/staff, communicating with nodding and mouthing words, following commands currently on Precedex, which is being weaned to maximize alertness and ventilator weaning. == Family was preparing to transition from aggressive care to comfort oriented care, but seeing the cognitive improvement on 02/27/18 are likely to want aggressive care to continue unless there is another major setback. Plan for discussion of this at 03/07 conference call and follow-up meetings with daughters. Per my discussion with Alona, continue current plan of alternative code at this time. == Palliative care will continue to follow up as needed to assist with symptom management and to further clarify goals of medical treatment as the clinical course evolves. Family receptive to this. . Attestation To help prompt me to consider important information that might be impacting today's encounter and assessment, information from prior notes written by myself or my colleagues may have been "brought forward" into today's note. My signature on this note, however, is an attestation that I personally performed the exam, history, and/or decision-making noted today, and, unless otherwise indicated, the interactions with patient, family, and staff as well as the review of records all occurred today. I also attest that the listed assessment and stated plan reflect my best clinical judgment today based on the combination of historical information, prior notes, and today's exam/ interactions. When time spent is documented, it refers only to time spent today by the signer, or if indicated, combined time spent today by collaborating physician/nurse practitioner. . Tara Leon March 06, 2018 4:30 pm
[2018-03-06] MEDS: MORPHINE SULFATE 4 MG/ML INJ IV PUSH PRN (18:20)
--- NOTE | 2018-03-06 20:29 | HHI.PR ---
Subjective Remarks Patient remains sedated with Diprivan and Fentanyl infusions. On PRVC with PEEP: 8, FIO2:60%. Afebrile. Awake, follows simple commands Was more responsive, mouthing words had Laproscopic G-tube placement Rt chest tubes removed left chest tubes to water seal On CPAp, tolerates Awake, on Precedex Follows commands Objective Vital Signs Vital Signs Date Time Temp Pulse Resp B/P (MAP) Pulse Ox O2 Delivery O2 Flow Rate FiO2 03/06/18 19:38 98 50 03/06/18 18:00 75 03/06/18 16:19 96 55 03/06/18 16:00 82 03/06/18 16:00 98.4 82 12 142/87 (105) 98 03/06/18 14:00 67 03/06/18 12:31 96 55 03/06/18 12:02 98.2 78 24 159/71 (100) 97 03/06/18 12:00 73 03/06/18 12:00 55 03/06/18 10:00 72 03/06/18 08:34 98 55 03/06/18 08:00 77 03/06/18 08:00 60 03/06/18 06:00 70 03/06/18 04:50 94 60 03/06/18 04:00 60 03/06/18 04:00 75 03/06/18 04:00 98.6 75 0 161/77 (105) 97 03/06/18 02:00 67 03/06/18 01:10 95 60 03/06/18 00:00 98.8 68 51 139/66 (90) 98 03/06/18 00:00 60 03/06/18 00:00 68 03/05/18 22:00 63 03/05/18 20:32 94 60 I/O 03/05/18 03/05/18 03/05/18 03/06/18 03/06/18 03/06/18 07:00 15:00 23:00 07:00 15:00 23:00 Intake Total 504.5 ml 100 ml 810 ml 120 ml 80 ml Output Total 1100 ml 1580 ml 1750 ml 1525 ml Balance -595.5 ml 100 ml -770 ml -1630 ml -1445 ml IV Total 262.5 ml 100 ml 250 ml Tube Feeding 182 ml 0 ml 0 ml 20 ml Other 60 ml 560 ml 120 ml 60 ml Output Urine Total 1100 ml 1575 ml 1650 ml 1425 ml Gastric Drainage Total 100 ml 100 ml Chest Tube Drainage Total 0 ml 0 ml 0 ml 0 ml Estimated Blood Loss 5 ml # Bowel Movements 0 0 0 0 Result Diagram: 03/06/18 0600 03/06/18 0600 Objective Remarks GENERAL: WBWN Female, on Vent, sedated SKIN: Warm and dry. HEAD: Normocephalic. EYES: No scleral icterus. No injection or drainage. NECK: Supple, trachea midline. No JVD or lymphadenopathy. CARDIOVASCULAR: Regular rate and rhythm without murmurs, gallops, or rubs. RESPIRATORY: Breath sounds equal bilaterally. No accessory muscle use. [address] SQ Emphysema. GASTROINTESTINAL: Abdomen soft, non-tender, nondistended. MUSCULOSKELETAL: No cyanosis, or edema. Neuro: Sedated, A/P Assessment and Plan Acute hypoxemic respiratory failure s/p trach MRSA pneumonia, with multiple cavitations and consolidation s/p Moderate sized left pleural effusion, ? empyema COPD Bilateral pneumothorax, status post large bore chest tube Post Influenza pneumonia Leukocytosis Anemia PLAN: Cont Vent support keep sats >92% Wean 02 Bronchodilators Pulm toilet, trach care Monitor CT output. GI/DVT prophylaxis Palliative care is following CPAP Dru Pride MD March 06, 2018 20:29
[2018-03-07] VITALS (18 sets, daily range): BP systolic 131–173; BP diastolic 62–74; PULSE 67–89; RESP 21–40; TEMP 98.6–99.5; O2SAT 93–100
[2018-03-07] MEDS: DILTIAZEM HCL 30 MG TAB PO SCH ×4 (00:12→18:43)
[2018-03-07] MEDS: METOPROLOL TARTRATE 25 MG TAB PO SCH ×2 (00:13→11:22)
[2018-03-07] MEDS: DEXMEDETOMIDINE INJ 1,000 MCG in SODIUM CHLOR 0.9% 250 ML INJ 240 ML IV PRN ×3 (01:03→16:47)
[2018-03-07] MEDS: FUROSEMIDE 40 MG/4 ML VIAL IV PUSH SCH ×2 (02:06→14:21)
[2018-03-07] MEDS: CHLORHEXIDINE GLUCONATE 2 % 1 PACK (2 CLOTHS) TOP SCH (03:08)
[2018-03-07] MEDS: oxyCODONE HCL ORAL CONC 5 MG/0.25 ML SYRINGE PO SCH ×4 (03:08→21:15)
[2018-03-07] MEDS: cloNIDine HCL 0.1 MG TAB PO SCH ×3 (05:34→21:16)
[2018-03-07] MEDS: HEPARIN SODIUM - SQ 10,000 UNITS/ML VIAL SQ SCH ×3 (05:34→21:16)
[2018-03-07] MEDS: INSULIN ASPART SUPPLEMENTAL SCALE SQ SCH ×4 (05:34→18:00)
[2018-03-07 07:12] LABS: AUTOMATED NEUTROPHIL # 14.9 TH/MM3 (1.8-7.7); BASOPHIL # 0.1 TH/MM3 (0-0.2); BASOPHIL % 0.8 % (0.0-2.0); EOSINOPHIL # 0.5 TH/MM3 (0-0.4); EOSINOPHIL % 2.6 % (0.0-4.0); HEMATOCRIT 27.6 % (35.0-46.0); HEMOGLOBIN 8.8 GM/DL (11.6-15.3); LYMPH % 7.3 % (9.0-44.0); LYMPHOCYTE # 1.3 TH/MM3 (1.0-4.8); MEAN CELL VOLUME 87.8 FL (80.0-100.0); MEAN CORPUSCULAR HEMOGLOBIN 28.1 PG (27.0-34.0); MEAN PLATELET VOLUME 8.1 FL (7.0-11.0); MONO % 5.3 % (0.0-8.0); MONOCYTE # 0.9 TH/MM3 (0-0.9); PLATELET COUNT 326 TH/MM3 (150-450); RED BLOOD COUNT 3.14 MIL/MM3 (4.00-5.30); RED CELL DISTRIBUTION WIDTH 16.5 % (11.6-17.2); WHITE BLOOD COUNT 17.7 TH/MM3 (4.0-11.0)
[2018-03-07 07:36] LABS: BICARBONATE 31.6 MEQ/L (21.0-32.0); CREATININE 0.53 MG/DL (0.50-1.00)
[2018-03-07] MEDS: POTASSIUM CHLORIDE 25 MEQ EFFERVESCENT TAB PO SCH (08:33)
[2018-03-07] MEDS: ASPIRIN 81 MG CHEW TAB CHEW SCH (08:35)
[2018-03-07] MEDS: FAMOTIDINE 20 MG TAB PO SCH ×2 (08:36→21:16)
[2018-03-07] MEDS: SODIUM CHLORIDE 0.9% FLUSH 10 ML FLUSH IV FLUSH SCH ×2 (08:37→21:16)
[2018-03-07] MEDS: CHLORHEXIDINE 0.12% (ORAL KIT) 15 ML CUP MT SCH ×2 (08:37→21:16)
[2018-03-07] MEDS: POTASSIUM CHLOR 20 MEQ PREMIX 100 ML IV PRN (08:38)
[2018-03-07] MEDS: RESP: ALBUTEROL 2.5 MG/IPRATROPIUM 0.5 MG NEB (PRN) INH (09:17)
[2018-03-07] MEDS: VANCOMYCIN INJ 1,250 MG in SODIUM CHLOR 0.9% 250 ML INJ 250 ML IV SCH (11:22)
[2018-03-07] MEDS: MORPHINE SULFATE 4 MG/ML INJ IV PUSH PRN (11:24)
--- NOTE | 2018-03-07 14:01 | HHI.PR ---
Subjective Subjective Notes Resting in bed Family at bedside Awake and alert--- answering yes and no questions Objective Vitals/I&O Vital Signs Date Time Temp Pulse Resp B/P (MAP) Pulse Ox O2 Delivery O2 Flow Rate FiO2 03/07/18 11:54 93 50 03/07/18 10:00 T-piece 12.00 03/07/18 06:00 68 03/07/18 04:08 18 03/07/18 04:00 98.7 131/62 (85) Labs Laboratory Tests Test 03/07/18 05:30 03/07/18 05:50 Blood Urea Nitrogen 22 Creatinine 0.53 Random Glucose 157 Calcium Level 9.0 Sodium Level 147 Potassium Level 3.2 Chloride Level 106 Carbon Dioxide Level 31.6 Anion Gap 9 Estimat Glomerular Filtration Rate 117 White Blood Count 17.7 Red Blood Count 3.14 Hemoglobin 8.8 Hematocrit 27.6 Mean Corpuscular Volume 87.8 Mean Corpuscular Hemoglobin 28.1 Mean Corpuscular Hemoglobin Concent 32.0 Red Cell Distribution Width 16.5 Platelet Count 326 Mean Platelet Volume 8.1 Neutrophils (%) (Auto) 84.0 Lymphocytes (%) (Auto) 7.3 Monocytes (%) (Auto) 5.3 Eosinophils (%) (Auto) 2.6 Basophils (%) (Auto) 0.8 Neutrophils # (Auto) 14.9 Lymphocytes # (Auto) 1.3 Monocytes # (Auto) 0.9 Eosinophils # (Auto) 0.5 Basophils # (Auto) 0.1 CBC Comment DIFF FINAL Differential Comment Date/Time Source Procedure Growth Status 02/19/18 14:03 Blood Peripheral Aerobic Blood Culture - Final NO GROWTH IN 5 DAYS Complete 02/19/18 14:03 Blood Peripheral Anaerobic Blood Culture - Final NO GROWTH IN 5 DAYS Complete 02/22/18 14:19 Fluid Pleural Fluid Fungal Smear - Final NO FUNGAL ELEMENTS SEEN. Resulted 02/22/18 14:19 Fluid Pleural Fluid Fungal Culture - Preliminary NO GROWTH IN 1 WEEK Resulted 02/10/18 13:53 Genital Vaginal Genital Culture - Final Klebsiella Pneumoniae Zelda Albicans Complete 03/06/18 00:00 Sputum Endotracheal Gram Stain - Final Resulted 03/06/18 00:00 Sputum Culture - Preliminary S. Aureus Mrsa Resulted 01/31/18 07:42 Urine Catheterized Urine Urine Culture - Final NO GROWTH IN 48 HOURS. Complete Cardiovascular: Regular Lungs: Clear Abdomen: Other (G tube in place; lap sites c/d/i abd soft ) Extremities: No edema A/P Assessment and Plan 62 year old female with VDRF s/p trach placement; multiple medical problems --POD2 lap G tube placement -Okay to increase TF rate to 50 cc/hr as tolerated -GS clear for discharge to [facility] Attending Note - Dr. Nj Tube site with no drainage Tolerating trickle feeds; advance to target rate. Will see as needed. The exam, history, and the medical decision-making described in the above note were completed with the assistance of the mid-level provider. I reviewed and agree with the findings presented. I attest that I had a [id number] encounter with the patient on the same day, and personally performed and documented my assessment and findings in the medical record. Adri Sheldon/Environmental Engineering Technician IRENA March 07, 2018 14:01 Kevin Nj MD March 11, 2018 11:27
[2018-03-07] MEDS: cefTRIAXone INJ 2,000 MG in SODIUM CHLORIDE 0.9% INJ 100 ML IV SCH (14:21)
[2018-03-07] MEDS: ACETAMINOPHEN 325 MG TAB PO PRN (14:43)
--- NOTE | 2018-03-07 14:58 | RADRPT ---
EXAM DATE/TIME: 03/07/2018 14:02 [facility] COMPARISON: CHEST SINGLE AP, March 06, 2018, 6:26. INDICATIONS : Short of breath. MEDICAL HISTORY : Sepsis. SURGICAL HISTORY : Tonsillectomy. gastric bypass ENCOUNTER: Initial ACUITY: 1 month PAIN SCORE: Non-responsive. LOCATION: Bilateral chest FINDINGS: Portable AP view of the chest demonstrates a normal-sized cardiac silhouette. Tracheostomy overlies t he tracheal air shadow. 2 chest tubes are present in the left hemithorax and no left pneumothorax is present. Both right chest tubes have been removed. There is a small right pneumothorax. Right lung is diffusely abnormal with air space consolidation most severe in the right midlung zone. There is left mid and lower lung zone airspace consolidation with pleural based opacity. CONCLUSION: 1. Both right chest tubes have been removed and there is a small right pneumothorax. Both left chest tubes remain present and no pneumothorax is visualized on the left. 2. Stable severe diffuse right lung airspace consolidation that is most severe in the right midlung z one. 3. Stable small left pleural effusion with airspace consolidation at the left lung base. Michael Perea MD on March 07, 2018 at 14:53 Board Certified Radiologist. This report was verified electronically.
--- NOTE | 2018-03-07 15:41 | HHI.PR ---
Subjective Remarks Patient remains sedated with Diprivan and Fentanyl infusions. On PRVC with PEEP: 8, FIO2:60%. Afebrile. Awake, follows simple commands Was more responsive, mouthing words had Laproscopic G-tube placement Rt chest tubes removed left chest tubes to water seal On CPAP, tolerates Awake, on Precedex Follows commands CXR small stable rt PTX Objective Vital Signs Vital Signs Date Time Temp Pulse Resp B/P (MAP) Pulse Ox O2 Delivery O2 Flow Rate FiO2 03/07/18 12:00 81 03/07/18 11:54 93 50 03/07/18 11:00 50 03/07/18 10:30 60 03/07/18 10:00 94 T-piece 12.00 60 03/07/18 10:00 89 03/07/18 08:00 70 03/07/18 07:35 50 03/07/18 07:35 95 50 03/07/18 06:00 68 03/07/18 04:08 18 03/07/18 04:05 98 60 03/07/18 04:00 60 03/07/18 04:00 98.7 67 22 131/62 (85) 100 03/07/18 04:00 67 03/07/18 02:00 71 03/07/18 00:13 97 60 03/07/18 00:00 68 03/07/18 00:00 98.6 69 21 144/64 (90) 100 03/07/18 00:00 60 03/06/18 22:00 72 03/06/18 20:00 98.7 83 21 154/77 (102) 100 03/06/18 20:00 83 03/06/18 20:00 60 03/06/18 19:38 98 50 03/06/18 18:00 75 03/06/18 16:19 96 55 03/06/18 16:00 82 03/06/18 16:00 98.4 82 12 142/87 (105) 98 I/O 03/06/18 03/06/18 03/06/18 03/07/18 03/07/18 03/07/18 06:59 14:59 22:59 06:59 14:59 22:59 Intake Total 120 ml 342.5 ml 392 ml Output Total 1750 ml 1525 ml 1350 ml Balance -1630 ml -1182.5 ml -958 ml IV Total 262.5 ml 250 ml Tube Feeding 0 ml 20 ml 102 ml Other 120 ml 60 ml 40 ml Output Urine Total 1650 ml 1425 ml 1350 ml Gastric Drainage Total 100 ml 100 ml Chest Tube Drainage Total 0 ml 0 ml 0 ml # Bowel Movements 0 0 0 Result Diagram: 03/07/18 0550 03/07/18 0530 Objective Remarks GENERAL: WBWN Female, on Vent, sedated SKIN: Warm and dry. HEAD: Normocephalic. EYES: No scleral icterus. No injection or drainage. NECK: Supple, trachea midline. No JVD or lymphadenopathy. CARDIOVASCULAR: Regular rate and rhythm without murmurs, gallops, or rubs. RESPIRATORY: Breath sounds equal bilaterally. No accessory muscle use. [address] SQ Emphysema. GASTROINTESTINAL: Abdomen soft, non-tender, nondistended. MUSCULOSKELETAL: No cyanosis, or edema. Neuro: Sedated, A/P Assessment and Plan Acute hypoxemic respiratory failure s/p trach MRSA pneumonia, with multiple cavitations and consolidation s/p Moderate sized left pleural effusion, ? empyema COPD Bilateral pneumothorax, status post large bore chest tube Post Influenza pneumonia Leukocytosis Anemia PLAN: Cont Vent support keep sats >92% Wean 02 Bronchodilators Pulm toilet, trach care Monitor CT output. GI/DVT prophylaxis Palliative care is following CPAP as tolerated Monitor small ptx Left chest tubes to water seal, may be [email or web address] Leiva. Dru Pride MD March 07, 2018 15:41
[2018-03-07] MEDS ORDERED: POTASSIUM CHLORIDE 25 MEQ EFFERVESCENT TAB G-TUBE ONE (16:30)
[2018-03-07] MEDS ORDERED: MELATONIN 5 MG TAB PO PRN (17:15)
--- NOTE | 2018-03-07 17:23 | HHI.CCPN ---
Subjective Remarks/Hospital Course 01/30: 62-year-old female presents for evaluation of increasing shortness of breath and chest pain. She reports 1 week of coughing 3 days of pain in her left chest which radiates to her back, which prompted the visit to the emergency room yesterday. She rates her pain a 6 out of 10. She reports fevers , chills, fatigue, mild nausea. She denies any abdominal pain, vomiting. Patient denies any significant past medical history. Symptom onset was gradual , symptom severity is severe, there are no alleviating factors. Patient states that she has been taking the azithromycin antibiotics that were prescribed to her. She denies any current or historical tobacco use. 01/31: Intubated at 1 AM this morning and placed on mechanical ventilation due to worsening respiratory distress. Currently sedated, orally intubated on mechanical ventilation. 02/01: Remains sedated, orally intubated on mechanical ventilation. Went into A. fib with RVR this morning. Loaded with amiodarone, started on amiodarone drip and given digoxin 0.5 mg IV 02/02: Remains sedated, orally intubated on mechanical ventilation. Right sided pigtail catheter in place with 1+ air leak. Converted to sinus rhythm overnight. Remains on amiodarone gtt. 02/03: Remains sedated, orally intubated on mechanical ventilation. 1+ air leak and right sided pigtail catheter. Tolerating tube feeds. Remains on amiodarone gtt. 02/04: Noted to have pneumothorax on the left side this morning on routine chest x -ray which appeared to be under tension. Right sided pigtail catheter placed by Dr. Peña with reexpansion of lung. Patient remains sedated, orally intubated on mechanical ventilation. 1+ airleak and bilateral chest tubes noted. 02/05: Afebrile. Persistent leukocytosis, bilateral chest tubes continue on wall suction. Chest x-ray pending this a.m.. Patient scheduled for GRANT today, discussed with Dr. Vázquez. Patient continues on amiodarone infusion with sinus rhythm. Postprocedure GRANT,this afternoon, the patient became extremely agitated, noted significant increase in subcu emphysema, peak pressures 50's, O2 saturation significantly decreased to 78-80 %. Stat chest x-ray performed patient was noted to have a significant right pneumothorax. 20 [place] right chest tube placement emergently, with increase in O2 saturation decrease in peak inspiratory pressures. 02/06: Afebrile. Patient with persistent bilateral pneumothoraces, with diffuse bilateral infiltrates and massive SQ emphysema. O2 requirement significantly increased during the night, PIP 38-44. 28 F chest tubes were placed bilaterally with resolution of left pneumothorax and minimization of right pneumothorax, and improved oxygenation. 02/07: TMax 100.1 Chest tubes remain on suction. Resolution of pneumothoraces, continued extensive SQ emphysema. Persistent leukocytosis noted. FiO2 weaned to 50%. 02/08: Late entry note patient seen at 1250. Attempts at CPAP trials, unsuccessful this morning. FiO2 decreased 50%, with adequate oxygenation. 02/09: Afebrile. The patient was transitioned to CPAP trials with pressure support of 22/8. FiO2 currently at 55% continuing to wean. Patient noted with positive fluid balance Lasix 40 mg IV now, patient is initiated on Lasix 40 daily. Patient with positive air leak in chest tubes #1-28 [place] right and #3 pigtail left, both at 2+. Sedation vacation initiated early this a.m. patient neurologically intact. Patient continues on moderate sedation for CPAP to maintain ventilator synchrony plan for transitioning to Precedex. Noted improvement with subcu emphysema. Extensive discussion with patient's daughter regarding a possibility of a tracheostomy if unsuccessful with ventilator weaning process. 02/10: Subcutaneous emphysema has worsened overnight per RN who took care of the patient yesterday, now extending to the upper chest left neck and to the left side of the face including left eyelids. No increase in FiO2 requirement currently on 55%. I have reduced inspiratory pressure from 32 to 28. FiO2 reduced to 50%. Will check a repeat chest x-ray in afternoon if needed. Will request CT surgical evaluation for persistent subcutaneous emphysema despite 2 chest tubes bilaterally 02/11 Patient is sedated with Diprivan, Versed and Fentanyl drips. T: 101.[address] guided chest tube placement by IR today 02/12 No events overnight. Remains sedated and intubated. Afebrile. On PC/AC with PEEP: 8 and FIO2 40%. 02/13 Patient remains intubated and heavily sedated. Afebrile. Repeat CT chest yesterday showed loculated anterior left pneumothorax has resolved. A small left pleural effusion remains present and the 2 left chest tubes appear to be in good position to drain the fluid. Significant improvement in the bilateral chest wall subcutaneous emphysema. 02/14 Patient remains sedated and intubated. Afebrile. On Bumex drip 0.5mg/hr. 02/15 Patient remains intubated and sedated, On Bumex drip 0.5mg/hr with good urine output. T:100.1 02/16 Patient remains sedated and intubated. Off Bumex drip. Afebrile. 02/17 Remains intubated and sedated with Diprivan and Fentanyl drips. Afebrile. For trach tomorrow. 02/18: Trach anticipated for today. Remains sedated. Family at the bedside updated. Coags are normal 02/19: Tracheostomy performed yesterday, patient now with increasing oxygen requirement more critical. Currently on 70% FiO2. A stat CT of the chest ordered by ID shows persistent consolidation multilobar with multiple cavitations. Family updated at the bedside. At this time do not appear to be adequately responding to treatment 02/20: Remains critical with high FiO2 and PEEP requirements. CT chest yesterday showed persistent consolidation and cavitation and a moderate-sized left pleural effusion. Sputum culture again growing MRSA. White count increased to 19,000 today. Left pleural effusion need to be drained, consult IR for CT guided chest tube, due to worsening sepsis 02/21: Patient remains intubated sedated and critically ill. PEEP requirement still remains high and FiO2 is at 50%. Radiology to place new large bore pigtail chest tube for left pleural effusion which is loculated. Will remove the small pigtail chest tube after new one is placed. On sedation hold patient appears to be weak on left side. Check CT of the head also. Grossly fluid overloaded. We will start scheduled dialysis with IV Lasix. Teflaro added to Zyvox yesterday 02/22: Continues to be requiring high oxygen currently at 50% PEEP at 8. New large bore pigtail chest tube placed on the left side yesterday with 200 mL output since placement. Bilateral previous pigtails to waterseal plan to remove the left original pigtail chest tube today. Patient continues to be encephalopathy 02/23: Remains on full ventilator support diuresing well with Lasix but still significantly fluid overloaded. Increase Lasix to 40 every 6 hours, add Diamox for 3 days. Continue chest tubes to suction. Fio2 reduced to 40% PEEP down to 10. MRI and EEG ordered due to persistent encephalopathy 02/24: No acute change in neurological status. EEG in progress. MRI pending. Right upper lobe pneumothorax resolved. Chest tubes 4 remain on -40 cm of water pressure plan for left upper and lower chest tube to be placed to waterseal today. Tracheal sutures in situ area clean dry and intact plan for suture removal of trach site tomorrow. Definition of goals of care to be discussed with palliative/ family conference scheduled for Sunday 02/25. 02/25: Remains on full vent support, PEEP 8, FiO2 50%. Remains on propofol and fentanyl. CXR remains stable. Tolerated PSV for 2 hours yesterday. Start Precedex and clonidine to facilitate more aggressive SBT, change fentanyl to patch. MRI negative for CVA, EEG encephalopathy. 02/26: No events over the night. Patient remains poorly responsive. No change in oxygenation, tolerating CPAP 15/8 and 55% O2. T-max of 99.1. I/O 3368/ 4580. Sister present at bedside. 2 right-sided chest tubes on suction, #4 with continuous air leak, 2 left-sided chest tubes on waterseal with no leak. 02/27: Patient did well over the night. This morning patient is more awake, attempting to follow some simple commands. T-max of 98.7, I/O 3267/4525. Sister and daughter present at bedside. Two right-sided chest tubes on suction , #4 with small air leak, 2 left-sided chest tubes on waterseal with no leak. 02/28: No events overnight. Patient remains awake, following, more interactive. T-max of 99.8, urine output remains adequate. Two right-sided chest tubes on suction, #4 still has air leak, 2 left-sided chest tubes on waterseal with no leak. Morning chest x-ray reviewed no significant change compared to previous one, still with small apical right residual pneumothorax. No family present at bedside. 03/01: No events over the night. Patient remains awake, following commands, tolerating CPAP 15/8 at 55% O2. Great urine output with Lasix. Daughter present at bedside. 03/02: Patient did well overnight. T-max of 99.6. Currently on CPAP 15/8, slightly with Vt 3-400's. I/O 2700/5210. Patient is awake, tracking, following commands. Chest x-ray reviewed no significant change compared to the one from yesterday. 03/03: No events over the night. Patient remains intubated, on Precedex. This morning on CPAP trial breathing in the 40s therefore I switched her to full support ventilation. She continues to have very good urine output. T-max of 99.9. 03/04: Patient remains awake, on the vent. She is afebrile, with a T-max of 98.8. Very good response to diuresis. CT chest done yesterday was reviewed. Tolerates CPAP every day for a few hours. CT # 4 still with small air leak. 03/05: Afebrile. The patient is scheduled for laparoscopic gastric tube placement today. Right-sided chest tubes placed on waterseal this a.m.. Tentative plan to remove right chest tubes post laparoscopic OR procedure today. The patient remains alert and oriented. Patient tolerated CPAP trials for approximately 1 hour yesterday. Patient was up out of bed and stretch her chair for approximately 5 hours yesterday. 03/06: Afebrile. The patient is status post laparoscopic gastric tube placement last evening, draining bilious fluid. Patient up out of bed and stretch her chair, alert currently on CPAP. Chest x-ray this a.m. showed small right apical pneumothorax, noted small air leak in right upper chest tube, he is on 20 cm of suction. 03/07: Both right chest tubes were removed yesterday. Small apical pneumothorax persists, no expansion. Patient noted to have agitation and anxiety did not sleep during the night. Melatonin and Xanax added to medication regimen. Discussed with plan for removal of left chest tube. Objective Vital Signs Date Time Temp Pulse Resp B/P (MAP) Pulse Ox O2 Delivery O2 Flow Rate FiO2 03/07/18 16:00 50 03/07/18 16:00 80 03/07/18 16:00 99.5 25 161/72 (101) 96 03/07/18 10:00 T-piece 12.00 Intake and Output 03/07/18 03/07/18 03/07/18 07:59 15:59 23:59 Intake Total 392 ml Output Total 1350 ml Balance -958 ml Result Diagram: 03/07/18 0550 03/07/18 0530 Imaging Last Impressions Chest X-Ray 03/07/18 0000 Signed Impressions: Service Date/Time: March 14:02 - CONCLUSION: 1. Both right chest tubes have been removed and there is a small right pneumothorax. Both left chest tubes remain present and no pneumothorax is visualized on the left. 2. Stable severe diffuse right lung airspace consolidation that is most severe in the right midlung zone. 3. Stable small left pleural effusion with airspace consolidation at the left lung base. Michael Perea MD Chest CT 03/03/18 0000 Signed Impressions: Service Date/Time: Saturday, March 03, 2018 16:02 - CONCLUSION: 1. Romeo Espinoza MD Abdomen X-Ray 03/01/18 0000 Signed Impressions: Service Date/Time: Thursday, March 01, 2018 12:04 - CONCLUSION: 1. NG tip in proximal stomach with side-port in distal esophagus. Everett Ng MD Brain MRI 02/24/18 0000 Signed Impressions: Service Date/Time: Saturday, February 24, 2018 12:42 - CONCLUSION: Negative exam with no evidence of hemorrhage, mass infarction. Kevin Tello MD Head CT 02/21/18 0000 Signed Impressions: Service Date/Time: February 14:24 - CONCLUSION: 1. Bilateral mastoiditis. 2. Otherwise negative. No acute intracranial process to explain current clinical symptoms Gino Hernandez MD Chest Tube Insertion 02/21/18 0000 Signed Impressions: Service Date/Time: February 14:36 - CONCLUSION: Uncomplicated chest tube placement as above. Karri Muhammad MD Liver Ultrasound 02/11/18 0000 Signed Impressions: Service Date/Time: Sunday, February 11, 2018 09:34 - CONCLUSION: Nondiagnostic examination CT scan is recommended for further evaluation if clinically indicated. To Vaughn MD Neck CT 02/10/18 0000 Signed Impressions: Service Date/Time: Saturday, February 10, 2018 14:57 - CONCLUSION: 1. Extensive subcutaneous edema in the neck which has dissected cephalad from the chest and is worse on the left side. 2. Support apparatus as above. See chest CT report for evaluation of lungs. 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 No adenopathy. Everett Ng MD Last Impressions Chest X-Ray 03/06/18 0000 Signed Impressions: Service Date/Time: Tuesday, March 06, 2018 06:26 - CONCLUSION: 1. Persistent bilateral airspace disease, right greater than left. Possible associated left-sided effusion. 2. Bilateral thoracostomy tubes, one on the right and 2 on the left. Small, 1 cm right apical pneumothorax. Gino Hernandez MD Chest CT 03/03/18 0000 Signed Impressions: Service Date/Time: Saturday, March 03, 2018 16:02 - CONCLUSION: 1. Romeo Espinoza MD Abdomen X-Ray 03/01/18 0000 Signed Impressions: Service Date/Time: Thursday, March 01, 2018 12:04 - CONCLUSION: 1. NG tip in proximal stomach with side-port in distal esophagus. Everett Ng MD Brain MRI 02/24/18 0000 Signed Impressions: Service Date/Time: Saturday, February 24, 2018 12:42 - CONCLUSION: Negative exam with no evidence of hemorrhage, mass infarction. Kevin Tello MD Head CT 02/21/18 0000 Signed Impressions: Service Date/Time: February 14:24 - CONCLUSION: 1. Bilateral mastoiditis. 2. Otherwise negative. No acute intracranial process to explain current clinical symptoms Gino Hernandez MD Chest Tube Insertion 02/21/18 0000 Signed Impressions: Service Date/Time: February 14:36 - CONCLUSION: Uncomplicated chest tube placement as above. Karri Muhammad MD Liver Ultrasound 02/11/18 0000 Signed Impressions: Service Date/Time: Sunday, February 11, 2018 09:34 - CONCLUSION: Nondiagnostic examination CT scan is recommended for further evaluation if clinically indicated. To Vaughn MD Neck CT 02/10/18 0000 Signed Impressions: Service Date/Time: Saturday, February 10, 2018 14:57 - CONCLUSION: 1. Extensive subcutaneous edema in the neck which has dissected cephalad from the chest and is worse on the left side. 2. Support apparatus as above. See chest CT report for evaluation of lungs. 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 No adenopathy. Everett Ng MD Last Impressions Chest X-Ray 03/05/18 0600 Signed Impressions: Service Date/Time: Monday, March 05, 2018 05:47 - CONCLUSION: 1. Bilateral chest tubes remain present and no pneumothorax is seen. 2. Stable appearance of the lungs with moderate to severe right mid and lower lung zone airspace consolidation and left pleural-parenchymal opacity likely representing small pleural effusion with associated atelectasis and consolidation. Michael Perea MD Chest CT 03/03/18 0000 Signed Impressions: Service Date/Time: Saturday, March 03, 2018 16:02 - CONCLUSION: 1. Romeo Espinoza MD Abdomen X-Ray 03/01/18 0000 Signed Impressions: Service Date/Time: Thursday, March 01, 2018 12:04 - CONCLUSION: 1. NG tip in proximal stomach with side-port in distal esophagus. Everett Ng MD Brain MRI 02/24/18 0000 Signed Impressions: Service Date/Time: Saturday, February 24, 2018 12:42 - CONCLUSION: Negative exam with no evidence of hemorrhage, mass infarction. Kevin Tello MD Head CT 02/21/18 0000 Signed Impressions: Service Date/Time: February 14:24 - CONCLUSION: 1. Bilateral mastoiditis. 2. Otherwise negative. No acute intracranial process to explain current clinical symptoms Gino Hernandez MD Chest Tube Insertion 02/21/18 0000 Signed Impressions: Service Date/Time: February 14:36 - CONCLUSION: Uncomplicated chest tube placement as above. Karri Muhammad MD Liver Ultrasound 02/11/18 0000 Signed Impressions: Service Date/Time: Sunday, February 11, 2018 09:34 - CONCLUSION: Nondiagnostic examination CT scan is recommended for further evaluation if clinically indicated. To Vaughn MD Neck CT 02/10/18 0000 Signed Impressions: Service Date/Time: Saturday, February 10, 2018 14:57 - CONCLUSION: 1. Extensive subcutaneous edema in the neck which has dissected cephalad from the chest and is worse on the left side. 2. Support apparatus as above. See chest CT report for evaluation of lungs. 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 No adenopathy. Everett Ng MD Last 24 hours Impressions Chest X-Ray 03/03/18 0600 Signed Impressions: Service Date/Time: Saturday, March 03, 2018 04:55 - CONCLUSION: Persistent bilateral infiltrates. Bilateral chest tubes stable. No pneumothorax seen. Ilya Harris MD Last 24 hours Impressions Chest X-Ray 03/02/18 0600 Signed Impressions: Service Date/Time: Friday, March 02, 2018 04:13 - CONCLUSION: Stable bilateral infiltrates and left pleural effusion. Ilya Harris MD Last 24 hours Impressions Chest X-Ray 03/01/18 0600 Signed Impressions: Service Date/Time: Thursday, March 01, 2018 04:39 - CONCLUSION: 1. Stable bilateral patchy infiltrates. 2. Side port of the gastric tube is 2.5 cm above the diaphragm and needs to be advanced approximately 5 cm. Ilya Harris MD Abdomen X-Ray 03/01/18 0000 Signed Impressions: Service Date/Time: Thursday, March 01, 2018 12:04 - CONCLUSION: 1. NG tip in proximal stomach with side-port in distal esophagus. Everett Ng MD Last 24 hours Impressions Chest X-Ray 02/28/18 0600 Signed Impressions: Service Date/Time: February 04:16 - CONCLUSION: 1. 2 right-sided chest tubes with small right apical pneumothorax. 2. 2 left-sided chest tubes without pneumothorax. 3. Left lateral pleural density is stable. 4. Bilateral airspace disease, unchanged Karri Muhammad MD Last 24 hours Impressions Chest X-Ray 02/26/18 0600 Signed Impressions: Service Date/Time: Monday, February 26, 2018 03:24 - CONCLUSION: 1. 2 chest tubes present bilaterally with a small right apical pneumothorax present. Air space disease and loculated fluid on the left are stable. Everett Ng MD Last Impressions Chest X-Ray 02/17/18 0000 Signed Impressions: Service Date/Time: Saturday, February 17, 2018 04:00 - CONCLUSION: 1. Patchy alveolar disease characteristic of edema or pneumonia. There has been no significant change when compared to the prior exam. To Vaughn MD Chest CT 02/12/18 1334 Signed Impressions: Service Date/Time: Monday, February 12, 2018 14:07 - CONCLUSION: 1. The loculated anterior left pneumothorax has resolved. A small left pleural effusion remains present and the 2 left chest tubes appear to be in good position to drain the fluid. 2. Significant improvement in the bilateral chest wall subcutaneous emphysema. 3. Stable severe kinking of the large bore right chest tube. This chest tube also extends into the fissure. Given these 2 findings, this likely not providing any significant suction. Consider removal. 4. Stable severe bilateral airspace consolidation with multifocal areas of cavitation. Michael Perea MD Liver Ultrasound 02/11/18 0000 Signed Impressions: Service Date/Time: Sunday, February 11, 2018 09:34 - CONCLUSION: Nondiagnostic examination CT scan is recommended for further evaluation if clinically indicated. To Vaughn MD Neck CT 02/10/18 0000 Signed Impressions: Service Date/Time: Saturday, February 10, 2018 14:57 - CONCLUSION: 1. Extensive subcutaneous edema in the neck which has dissected cephalad from the chest and is worse on the left side. 2. Support apparatus as above. See chest CT report for evaluation of lungs. 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 No adenopathy. Everett Ng MD Procedures 02/05- Right emergent 20 F chest tube placement 02/06: Left 28 [place] chest tube placement, right chest tube replacement 28 [place] 03/06: Laparoscopic gastric tube placed Objective Remarks General - middle-aged lady, awake, chronically ill-appearing weak, semirecumbent in bed communicating by nodding head yes and no and mouthing words HEENT - pupils equal, reactive, sclerae are anicteric, neck supple, no neck rigidity, no JVD, trach is in place CV - regular heart sound, no murmurs, rubs or gallops appreciated Chest - coarse breath sounds b/l, improved air entry at the bases, no wheezes, bilateral chest tubes [address] Abdomen - soft, non-tender, not distended, BS present Extremities - warm, 1+ edema, + peripheral pulses Neuro -GCS 11 T . Currently on Precedex 1.3 mcg/hr infusion .awake, follows some commands, but she remains very weak, Moves extremities x 4 A/P Assessment and Plan Neuro: Acute metabolic encephalopathy Agitation Insomnia Continue Precedex and clonidine Scheduled oxycodone for pain and fentanyl as needed Daily sedation vacation, as tolerated, but she becomes very tachypneic off Precedex. Attenuating Precedex currently 1.3 mcg/kg/hr Xanax 1 mg every 6 hours as needed Melatonin 10 mg nightly for insomnia. 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 PEEP decreased to 5. Daily CPAP trial Fluid studies sent 02/22/2018 not consistent with empyema Bilateral pigtail catheters and [address](4 total)-has minimal output, but maintain all chest tubes due to pneumo re-expansion Moderate left-sided pleural effusion, new left pigtail chest tube placed by radiology 02/21/2018 , but with only partial drainage Thoracic surgery has followed- Dr. Thornton-not planning on any surgical intervention DuoNeb scheduled and when necessary. 03/06 Right-sided lower chest tubes removed and left-sided chest tubes to waterseal. Ronnie with Dr. Pride plan for removal of left-sided chest tubes CT chest done on 03/03 reviewed Renal: Acute kidney injury-resolved Fluid overload -improving Contraction alkalosis -improved -Stopped albumin on 03/02 -Continue Lasix to 40 every 12 hours -Diamox 5001 given on 03/02 with improvement in her alkalosis Cardiovascular: A. fib with RVR (converted to NSR 02/02) Significantly fluid overloaded-resolved -02/05 amiodarone infusion discontinued. -02/05 GRANT -no valvular vegetations. EF 55-60%, trace MVR, mild TVR, PAP 35 -Continue Cardizem 60mg Q6 and Lopressor 25mg Q12 GI Elevated LFTs ( trending down) -Hepatitis profile: Negative. US liver: non-diagnostic study -Tube feeds Jevity 1.5 -resumed at 10 cc/hr -On Pepcid 20mg BID -General Surgery - S/P Laparoscopic G tube placement 03/06 ID: MRSA, Enterobacter pneumonia MRSA Bacteremia -Antibiotics per ID. Currently on vancomycin and Zosyn -Monitor for signs of new infections ( Fever, WBC) -ID- Dr. Areli following -White count is trending down Endocrine: Hyperglycemia Medium scale sliding scale insulin dosing Glucose monitoring per ICU protocol Hematology: Anemia -improved H&H post transfusion Monitor CBC MSK: PT evaluation and treat Patient up out of bed to stretcher chair DVT GI prophylaxis - Teds SCDs - Subcutaneous heparin - Pepcid Lines: peripheral IV's. Palliative care is following. Patient is slowly making progress, will most likely will need lead nuclear medicine technologist rehab after recovery. Code status: Alternative code Discussed with Dr. Pride, reviewed chest x-ray planned for removal of left- sided chest tubes Level 3 follow-up. Discussed with HEEL COVERER MACHINE OPERATOR at bedside (Myra) Discussed with Dr. Nj general surgery okay to increase tube feeds to optimal dosing, also okay for [facility] tubes can be removed from surgical site and approximately 2 weeks Physician Dilcia Zhong MD March 07, 2018 17:23
[2018-03-08] VITALS (14 sets, daily range): BP systolic 115–149; BP diastolic 57–67; PULSE 62–79; RESP 19–28; TEMP 97.6–99; O2SAT 92–100
[2018-03-08] MEDS: DILTIAZEM HCL 30 MG TAB PO SCH ×3 (00:48→11:53)
[2018-03-08] MEDS: DEXMEDETOMIDINE INJ 1,000 MCG in SODIUM CHLOR 0.9% 250 ML INJ 240 ML IV PRN ×3 (00:49→16:27)
[2018-03-08] MEDS: FUROSEMIDE 40 MG/4 ML VIAL IV PUSH SCH ×2 (01:54→14:12)
[2018-03-08] MEDS: METOPROLOL TARTRATE 25 MG TAB PO SCH ×2 (01:55→11:53)
[2018-03-08] MEDS: oxyCODONE HCL ORAL CONC 5 MG/0.25 ML SYRINGE PO SCH ×3 (02:29→14:10)
[2018-03-08] MEDS: ALPRAZolam 1 MG TAB PO PRN ×2 (03:17→17:02)
[2018-03-08] MEDS: CHLORHEXIDINE GLUCONATE 2 % 1 PACK (2 CLOTHS) TOP SCH (03:18)
[2018-03-08] MEDS: cloNIDine HCL 0.1 MG TAB PO SCH ×2 (05:39→14:09)
[2018-03-08] MEDS: HEPARIN SODIUM - SQ 10,000 UNITS/ML VIAL SQ SCH ×2 (05:39→14:12)
[2018-03-08] MEDS: INSULIN ASPART SUPPLEMENTAL SCALE SQ SCH ×3 (05:41→12:04)
[2018-03-08] MEDS ORDERED: PHARMACY ORDERED LAB ONE (05:45)
--- NOTE | 2018-03-08 05:46 | RADRPT ---
EXAM DATE/TIME: 03/08/2018 04:45 [place] COMPARISON: CHEST SINGLE AP, March 07, 2018, 14:02. INDICATIONS : Shortness of breath. MEDICAL HISTORY : Sepsis. SURGICAL HISTORY : Tonsillectomy. gastric bypass ENCOUNTER: Initial ACUITY: 2 months PAIN SCORE: Non-responsive. LOCATION: chest FINDINGS: Tracheostomy is stable. Left-sided thoracostomy tubes are stable. Right chest pneumothorax is stable. Diffuse parenchymal opacities are unchanged. Cardiac contours are unchanged. CONCLUSION: No significant interval change Michael Holloway MD on March 08, 2018 at 5:43 Board Certified Radiologist. This report was verified electronically.
[2018-03-08 05:50] LABS: AUTOMATED NEUTROPHIL # 10.9 TH/MM3 (1.8-7.7); BASOPHIL # 0.2 TH/MM3 (0-0.2); BASOPHIL % 1.2 % (0.0-2.0); EOSINOPHIL # 0.2 TH/MM3 (0-0.4); EOSINOPHIL % 1.8 % (0.0-4.0); HEMATOCRIT 28.5 % (35.0-46.0); HEMOGLOBIN 9.1 GM/DL (11.6-15.3); LYMPHOCYTE # 0.8 TH/MM3 (1.0-4.8); MEAN CELL VOLUME 88.5 FL (80.0-100.0); MEAN CORPUSCULAR HEMOGLOBIN 28.2 PG (27.0-34.0); MEAN CORPUSCULAR HGB CONC 31.9 % (32.0-36.0); MEAN PLATELET VOLUME 8.2 FL (7.0-11.0); MONO % 4.7 % (0.0-8.0); MONOCYTE # 0.6 TH/MM3 (0-0.9); NEUT % 86.3 % (16.0-70.0); PLATELET COUNT 311 TH/MM3 (150-450); RED BLOOD COUNT 3.22 MIL/MM3 (4.00-5.30); RED CELL DISTRIBUTION WIDTH 16.2 % (11.6-17.2); WHITE BLOOD COUNT 12.6 TH/MM3 (4.0-11.0)
[2018-03-08] MEDS: VANCOMYCIN INJ 1,250 MG in SODIUM CHLOR 0.9% 250 ML INJ 250 ML IV SCH (06:29)
[2018-03-08] MEDS: POTASSIUM CHLORIDE 25 MEQ EFFERVESCENT TAB PO SCH (09:19)
[2018-03-08] MEDS: FAMOTIDINE 20 MG TAB PO SCH (09:20)
[2018-03-08] MEDS: ASPIRIN 81 MG CHEW TAB CHEW SCH (09:20)
[2018-03-08] MEDS: SODIUM CHLORIDE 0.9% FLUSH 10 ML FLUSH IV FLUSH SCH (09:20)
[2018-03-08] MEDS: CHLORHEXIDINE 0.12% (ORAL KIT) 15 ML CUP MT SCH (09:23)
--- NOTE | 2018-03-08 10:18 | HHI.PR ---
Subjective Subjective Notes Answering yes and no questions No family at bedside Objective Vitals/I&O Vital Signs Date Time Temp Pulse Resp B/P (MAP) Pulse Ox O2 Delivery O2 Flow Rate FiO2 03/08/18 07:35 92 50 03/08/18 06:00 64 03/08/18 04:00 98.6 19 115/57 (76) 03/07/18 10:00 T-piece 12.00 Labs Laboratory Tests Test 03/07/18 22:23 03/08/18 04:19 03/08/18 06:17 Potassium Level 4.1 White Blood Count 12.6 Red Blood Count 3.22 Hemoglobin 9.1 Hematocrit 28.5 Mean Corpuscular Volume 88.5 Mean Corpuscular Hemoglobin 28.2 Mean Corpuscular Hemoglobin Concent 31.9 Red Cell Distribution Width 16.2 Platelet Count 311 Mean Platelet Volume 8.2 Neutrophils (%) (Auto) 86.3 Lymphocytes (%) (Auto) 6.0 Monocytes (%) (Auto) 4.7 Eosinophils (%) (Auto) 1.8 Basophils (%) (Auto) 1.2 Neutrophils # (Auto) 10.9 Lymphocytes # (Auto) 0.8 Monocytes # (Auto) 0.6 Eosinophils # (Auto) 0.2 Basophils # (Auto) 0.2 CBC Comment DIFF FINAL Differential Comment Vancomycin Level Trough 15.7 Date/Time Source Procedure Growth Status 02/19/18 14:03 Blood Peripheral Aerobic Blood Culture - Final NO GROWTH IN 5 DAYS Complete 02/19/18 14:03 Blood Peripheral Anaerobic Blood Culture - Final NO GROWTH IN 5 DAYS Complete 02/22/18 14:19 Fluid Pleural Fluid Fungal Smear - Final NO FUNGAL ELEMENTS SEEN. Resulted 02/22/18 14:19 Fluid Pleural Fluid Fungal Culture - Preliminary NO GROWTH IN 1 WEEK Resulted 02/10/18 13:53 Genital Vaginal Genital Culture - Final Klebsiella Pneumoniae Zelda Albicans Complete 03/06/18 00:00 Sputum Endotracheal Gram Stain - Final Resulted 03/06/18 00:00 Sputum Culture - Preliminary S. Aureus Mrsa Resulted 01/31/18 07:42 Urine Catheterized Urine Urine Culture - Final NO GROWTH IN 48 HOURS. Complete Cardiovascular: Regular Lungs: Clear Abdomen: Other (lap sites c/d/i; G tube in place without complications ) Extremities: Other (mild generalized edema; LEFT sided chest tube x 2 ) A/P Assessment and Plan 62 year old female with VDRF s/p trach placement; multiple medical problems --POD3 lap G tube placement -Okay to increase TF rate to 50 cc/hr as tolerated -GS clear for [facility] to [facility] Attending Note - Dr. Nj Advance feeding rate; site with minimal drainage/blood spot Ok for transfer The exam, history, and the medical decision-making described in the above note were completed with the assistance of the mid-level provider. I reviewed and agree with the findings presented. I attest that I had a [id number] encounter with the patient on the same day, and personally performed and documented my assessment and findings in the medical record. Adri SheldonP/Planning Assistant IRENA March 08, 2018 10:18 Kevin Nj MD March 11, 2018 11:30
--- NOTE | 2018-03-08 13:58 | HHI.IDPN ---
Subjective Subjective Remarks doing really well R sided CT are out tolerating CPAP secretions are thin small and almost clear repeat sputum clx + for MRSA, no Kleb neurologically doing great: fully awake, alert and interacting no fever spPEG placement Antibiotics vancomycin CFTX Lines Line sites with no e.o infection Past Medical History Gastric bypass Tonsillectomy Allergies: Coded Allergies: No Known Allergies (Unverified , 01/30/18) Objective . Vital Signs Date Time Temp Pulse Resp B/P (MAP) Pulse Ox O2 Delivery O2 Flow Rate FiO2 03/08/18 12:00 97.6 65 22 141/65 (90) 95 03/08/18 12:00 65 03/08/18 12:00 55 03/08/18 11:31 95 55 03/08/18 10:00 69 03/08/18 08:00 77 03/08/18 08:00 77 03/08/18 08:00 55 03/08/18 08:00 98.9 77 28 149/67 (94) 94 03/08/18 07:35 92 50 03/08/18 06:00 64 03/08/18 04:31 95 55 03/08/18 04:00 55 03/08/18 04:00 98.6 65 19 115/57 (76) 94 03/08/18 04:00 65 03/08/18 03:29 20 03/08/18 02:42 79 03/08/18 01:32 100 50 03/08/18 00:00 99.0 62 19 131/60 (83) 98 03/08/18 00:00 62 03/08/18 00:00 55 03/07/18 22:21 98 55 03/07/18 22:00 83 03/07/18 20:00 99.1 84 21 161/70 (100) 98 03/07/18 20:00 84 03/07/18 20:00 50 03/07/18 18:00 69 03/07/18 17:34 95 50 03/07/18 16:00 50 03/07/18 16:00 80 03/07/18 16:00 99.5 78 25 161/72 (101) 96 03/07/18 14:00 86 03/08/18 03/08/18 03/09/18 15:00 23:00 07:00 Intake Total 512.5 ml Balance 512.5 ml IV Total 512.5 ml . Laboratory Tests Test 03/07/18 05:50 03/08/18 04:19 White Blood Count 17.7 TH/MM3 12.6 TH/MM3 Red Blood Count 3.14 MIL/MM3 3.22 MIL/MM3 Hemoglobin 8.8 GM/DL 9.1 GM/DL Hematocrit 27.6 % 28.5 % Mean Corpuscular Volume 87.8 FL 88.5 FL Mean Corpuscular Hemoglobin 28.1 PG 28.2 PG Mean Corpuscular Hemoglobin Concent 32.0 % 31.9 % Red Cell Distribution Width 16.5 % 16.2 % Platelet Count 326 TH/MM3 311 TH/MM3 Mean Platelet Volume 8.1 FL 8.2 FL Neutrophils (%) (Auto) 84.0 % 86.3 % Lymphocytes (%) (Auto) 7.3 % 6.0 % Monocytes (%) (Auto) 5.3 % 4.7 % Eosinophils (%) (Auto) 2.6 % 1.8 % Basophils (%) (Auto) 0.8 % 1.2 % Neutrophils # (Auto) 14.9 TH/MM3 10.9 TH/MM3 Lymphocytes # (Auto) 1.3 TH/MM3 0.8 TH/MM3 Monocytes # (Auto) 0.9 TH/MM3 0.6 TH/MM3 Eosinophils # (Auto) 0.5 TH/MM3 0.2 TH/MM3 Basophils # (Auto) 0.1 TH/MM3 0.2 TH/MM3 CBC Comment DIFF FINAL DIFF FINAL Differential Comment Laboratory Tests Test 03/07/18 05:30 03/07/18 22:23 Blood Urea Nitrogen 22 MG/DL Creatinine 0.53 MG/DL Random Glucose 157 MG/DL Calcium Level 9.0 MG/DL Sodium Level 147 MEQ/L Potassium Level 3.2 MEQ/L 4.1 MEQ/L Chloride Level 106 MEQ/L Carbon Dioxide Level 31.6 MEQ/L Anion Gap 9 MEQ/L Estimat Glomerular Filtration Rate 117 ML/MIN Microbiology Date/Time Source Procedure Growth Status 03/06/18 00:00 Sputum Endotracheal Gram Stain - Final Complete 03/06/18 00:00 Sputum Culture - Final S. Aureus Mrsa Complete Imaging Last Impressions Chest X-Ray 03/08/18 0600 Signed Impressions: Service Date/Time: Thursday, March 08, 2018 04:45 - CONCLUSION: No significant interval change Michael Holloway MD Chest CT 03/03/18 0000 Signed Impressions: Service Date/Time: Saturday, March 03, 2018 16:02 - CONCLUSION: 1. Romeo Espinoza MD Abdomen X-Ray 03/01/18 0000 Signed Impressions: Service Date/Time: Thursday, March 01, 2018 12:04 - CONCLUSION: 1. NG tip in proximal stomach with side-port in distal esophagus. Everett Ng MD Brain MRI 02/24/18 0000 Signed Impressions: Service Date/Time: Saturday, February 24, 2018 12:42 - CONCLUSION: Negative exam with no evidence of hemorrhage, mass infarction. Kevin Tello MD Head CT 02/21/18 0000 Signed Impressions: Service Date/Time: February 14:24 - CONCLUSION: 1. Bilateral mastoiditis. 2. Otherwise negative. No acute intracranial process to explain current clinical symptoms Gino Hernandez MD Chest Tube Insertion 02/21/18 0000 Signed Impressions: Service Date/Time: February 14:36 - CONCLUSION: Uncomplicated chest tube placement as above. Karri Muhammad MD Liver Ultrasound 02/11/18 0000 Signed Impressions: Service Date/Time: Sunday, February 11, 2018 09:34 - CONCLUSION: Nondiagnostic examination CT scan is recommended for further evaluation if clinically indicated. To Vaughn MD Neck CT 02/10/18 0000 Signed Impressions: Service Date/Time: Saturday, February 10, 2018 14:57 - CONCLUSION: 1. Extensive subcutaneous edema in the neck which has dissected cephalad from the chest and is worse on the left side. 2. Support apparatus as above. See chest CT report for evaluation of lungs. 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 No adenopathy. Everett Ng MD Physical Exam CONSTITUTIONAL/GENERAL: On the vent SKIN: No jaundice, rashes, or lesions. Ecchymoses on upper extremities. Skin temperature appropriate. generalized edema previous Sq emphysema resolved HEAD: Atraumatic. Normocephalic. EYES: Pupils equal and round and reactive. No scleral icterus. No injection or drainage. ENT: No nasal discharge, orally intubated NECK: Supple, nontender. CARDIOVASCULAR: Regular rate and rhythm without murmurs, gallops, or rubs. RESPIRATORY/CHEST: Symmetric, unlabored respirations. Less prominent honchi b/ l. CT x 2 on the L GASTROINTESTINAL: Abdomen soft, nondistended. Obese. No reaction to palpation , not guarding. GENITOURINARY: Without palpable bladder distension. Alexandre catheter in place. MUSCULOSKELETAL: Extremities without clubbing, cyanosis, lessprminent edema. . NEUROLOGICAL: awake, opens eyes, + eye contact, + follows commands, mouths words approptietly PSYCHIATRIC: calm LINE: no evidence of infection Assessment & Plan Remarks IMPRESSION MRSA PNA, necrotizing Multiple b/l pneumothoraces ? postinfluenza PNA Loculated hydropneumothorax: ? empyema Acute VDRF tolerating weaning sp trach High grade , sustained MRSA bacteremia GRANT negative Severe leukocytosis and bandemia New PNA, Enterobacter (panS) along with MRSA Empyema and multiple cavitary lesions - essentaially necrotizing PNA - no e/o endocarditis - sp multiple CTs placement MS change : resolving encephalopathy Prognosis is now guarded with improving neuro status ? BP fistula - not seen on CT PLAN complete vancomycin within 5-7 days dc CFTX ok to [facility]fer to [facility] Kp Cooper and Carlene Bliss MD March 08, 2018 13:58
[2018-03-08] MEDS: cefTRIAXone INJ 2,000 MG in SODIUM CHLORIDE 0.9% INJ 100 ML IV SCH (14:10)
[2018-03-08] MEDS ORDERED: PADIMATE (CHAPSTICK) 4.5 GM TUBE TOPICAL PRN (14:30)
--- NOTE | 2018-03-08 14:36 | HHI.CCPN ---
Subjective Remarks/Hospital Course 01/30: 62-year-old female presents for evaluation of increasing shortness of breath and chest pain. She reports 1 week of coughing 3 days of pain in her left chest which radiates to her back, which prompted the visit to the emergency room yesterday. She rates her pain a 6 out of 10. She reports fevers , chills, fatigue, mild nausea. She denies any abdominal pain, vomiting. Patient denies any significant past medical history. Symptom onset was gradual , symptom severity is severe, there are no alleviating factors. Patient states that she has been taking the azithromycin antibiotics that were prescribed to her. She denies any current or historical tobacco use. 01/31: Intubated at 1 AM this morning and placed on mechanical ventilation due to worsening respiratory distress. Currently sedated, orally intubated on mechanical ventilation. 02/01: Remains sedated, orally intubated on mechanical ventilation. Went into A. fib with RVR this morning. Loaded with amiodarone, started on amiodarone drip and given digoxin 0.5 mg IV 02/02: Remains sedated, orally intubated on mechanical ventilation. Right sided pigtail catheter in place with 1+ air leak. Converted to sinus rhythm overnight. Remains on amiodarone gtt. 02/03: Remains sedated, orally intubated on mechanical ventilation. 1+ air leak and right sided pigtail catheter. Tolerating tube feeds. Remains on amiodarone gtt. 02/04: Noted to have pneumothorax on the left side this morning on routine chest x -ray which appeared to be under tension. Right sided pigtail catheter placed by Dr. Peña with reexpansion of lung. Patient remains sedated, orally intubated on mechanical ventilation. 1+ airleak and bilateral chest tubes noted. 02/05: Afebrile. Persistent leukocytosis, bilateral chest tubes continue on wall suction. Chest x-ray pending this a.m.. Patient scheduled for GRANT today, discussed with Dr. Vázquez. Patient continues on amiodarone infusion with sinus rhythm. Postprocedure GRANT,this afternoon, the patient became extremely agitated, noted significant increase in subcu emphysema, peak pressures 50's, O2 saturation significantly decreased to 78-80 %. Stat chest x-ray performed patient was noted to have a significant right pneumothorax. 20 Dominican right chest tube placement emergently, with increase in O2 saturation decrease in peak inspiratory pressures. 02/06: Afebrile. Patient with persistent bilateral pneumothoraces, with diffuse bilateral infiltrates and massive SQ emphysema. O2 requirement significantly increased during the night, PIP 38-44. 28 F chest tubes were placed bilaterally with resolution of left pneumothorax and minimization of right pneumothorax, and improved oxygenation. 02/07: TMax 100.1 Chest tubes remain on suction. Resolution of pneumothoraces, continued extensive SQ emphysema. Persistent leukocytosis noted. FiO2 weaned to 50%. 02/08: Late entry note patient seen at 1250. Attempts at CPAP trials, unsuccessful this morning. FiO2 decreased 50%, with adequate oxygenation. 02/09: Afebrile. The patient was transitioned to CPAP trials with pressure support of 22/8. FiO2 currently at 55% continuing to wean. Patient noted with positive fluid balance Lasix 40 mg IV now, patient is initiated on Lasix 40 daily. Patient with positive air leak in chest tubes #1-28 Dominican right and #3 pigtail left, both at 2+. Sedation vacation initiated early this a.m. patient neurologically intact. Patient continues on moderate sedation for CPAP to maintain ventilator synchrony plan for transitioning to Precedex. Noted improvement with subcu emphysema. Extensive discussion with patient's daughter regarding a possibility of a tracheostomy if unsuccessful with ventilator weaning process. 02/10: Subcutaneous emphysema has worsened overnight per RN who took care of the patient yesterday, now extending to the upper chest left neck and to the left side of the face including left eyelids. No increase in FiO2 requirement currently on 55%. I have reduced inspiratory pressure from 32 to 28. FiO2 reduced to 50%. Will check a repeat chest x-ray in afternoon if needed. Will request CT surgical evaluation for persistent subcutaneous emphysema despite 2 chest tubes bilaterally 02/11 Patient is sedated with Diprivan, Versed and Fentanyl drips. T: 101.[address] guided chest tube placement by IR today 02/12 No events overnight. Remains sedated and intubated. Afebrile. On PC/AC with PEEP: 8 and FIO2 40%. 02/13 Patient remains intubated and heavily sedated. Afebrile. Repeat CT chest yesterday showed loculated anterior left pneumothorax has resolved. A small left pleural effusion remains present and the 2 left chest tubes appear to be in good position to drain the fluid. Significant improvement in the bilateral chest wall subcutaneous emphysema. 02/14 Patient remains sedated and intubated. Afebrile. On Bumex drip 0.5mg/hr. 02/15 Patient remains intubated and sedated, On Bumex drip 0.5mg/hr with good urine output. T:100.1 02/16 Patient remains sedated and intubated. Off Bumex drip. Afebrile. 02/17 Remains intubated and sedated with Diprivan and Fentanyl drips. Afebrile. For trach tomorrow. 02/18: Trach anticipated for today. Remains sedated. Family at the bedside updated. Coags are normal 02/19: Tracheostomy performed yesterday, patient now with increasing oxygen requirement more critical. Currently on 70% FiO2. A stat CT of the chest ordered by ID shows persistent consolidation multilobar with multiple cavitations. Family updated at the bedside. At this time do not appear to be adequately responding to treatment 02/20: Remains critical with high FiO2 and PEEP requirements. CT chest yesterday showed persistent consolidation and cavitation and a moderate-sized left pleural effusion. Sputum culture again growing MRSA. White count increased to 19,000 today. Left pleural effusion need to be drained, consult IR for CT guided chest tube, due to worsening sepsis 02/21: Patient remains intubated sedated and critically ill. PEEP requirement still remains high and FiO2 is at 50%. Radiology to place new large bore pigtail chest tube for left pleural effusion which is loculated. Will remove the small pigtail chest tube after new one is placed. On sedation hold patient appears to be weak on left side. Check CT of the head also. Grossly fluid overloaded. We will start scheduled dialysis with IV Lasix. Teflaro added to Zyvox yesterday 02/22: Continues to be requiring high oxygen currently at 50% PEEP at 8. New large bore pigtail chest tube placed on the left side yesterday with 200 mL output since placement. Bilateral previous pigtails to waterseal plan to remove the left original pigtail chest tube today. Patient continues to be encephalopathy 02/23: Remains on full ventilator support diuresing well with Lasix but still significantly fluid overloaded. Increase Lasix to 40 every 6 hours, add Diamox for 3 days. Continue chest tubes to suction. Fio2 reduced to 40% PEEP down to 10. MRI and EEG ordered due to persistent encephalopathy 02/24: No acute change in neurological status. EEG in progress. MRI pending. Right upper lobe pneumothorax resolved. Chest tubes 4 remain on -40 cm of water pressure plan for left upper and lower chest tube to be placed to waterseal today. Tracheal sutures in situ area clean dry and intact plan for suture removal of trach site tomorrow. Definition of goals of care to be discussed with palliative/ family conference scheduled for Sunday 02/25. 02/25: Remains on full vent support, PEEP 8, FiO2 50%. Remains on propofol and fentanyl. CXR remains stable. Tolerated PSV for 2 hours yesterday. Start Precedex and clonidine to facilitate more aggressive SBT, change fentanyl to patch. MRI negative for CVA, EEG encephalopathy. 02/26: No events over the night. Patient remains poorly responsive. No change in oxygenation, tolerating CPAP 15/8 and 55% O2. T-max of 99.1. I/O 3368/ 4580. Sister present at bedside. 2 right-sided chest tubes on suction, #4 with continuous air leak, 2 left-sided chest tubes on waterseal with no leak. 02/27: Patient did well over the night. This morning patient is more awake, attempting to follow some simple commands. T-max of 98.7, I/O 3267/4525. Sister and daughter present at bedside. Two right-sided chest tubes on suction , #4 with small air leak, 2 left-sided chest tubes on waterseal with no leak. 02/28: No events overnight. Patient remains awake, following, more interactive. T-max of 99.8, urine output remains adequate. Two right-sided chest tubes on suction, #4 still has air leak, 2 left-sided chest tubes on waterseal with no leak. Morning chest x-ray reviewed no significant change compared to previous one, still with small apical right residual pneumothorax. No family present at bedside. 03/01: No events over the night. Patient remains awake, following commands, tolerating CPAP 15/8 at 55% O2. Great urine output with Lasix. Daughter present at bedside. 03/02: Patient did well overnight. T-max of 99.6. Currently on CPAP 15/8, slightly with Vt 3-400's. I/O 2700/5210. Patient is awake, tracking, following commands. Chest x-ray reviewed no significant change compared to the one from yesterday. 03/03: No events over the night. Patient remains intubated, on Precedex. This morning on CPAP trial breathing in the 40s therefore I switched her to full support ventilation. She continues to have very good urine output. T-max of 99.9. 03/04: Patient remains awake, on the vent. She is afebrile, with a T-max of 98.8. Very good response to diuresis. CT chest done yesterday was reviewed. Tolerates CPAP every day for a few hours. CT # 4 still with small air leak. 03/05: Afebrile. The patient is scheduled for laparoscopic gastric tube placement today. Right-sided chest tubes placed on waterseal this a.m.. Tentative plan to remove right chest tubes post laparoscopic OR procedure today. The patient remains alert and oriented. Patient tolerated CPAP trials for approximately 1 hour yesterday. Patient was up out of bed and stretch her chair for approximately 5 hours yesterday. 03/06: Afebrile. The patient is status post laparoscopic gastric tube placement last evening, draining bilious fluid. Patient up out of bed and stretch her chair, alert currently on CPAP. Chest x-ray this a.m. showed small right apical pneumothorax, noted small air leak in right upper chest tube, he is on 20 cm of suction. 03/07: Both right chest tubes were removed yesterday. Small apical pneumothorax persists, no expansion. Patient noted to have agitation and anxiety did not sleep during the night. Melatonin and Xanax added to medication regimen. Discussed with plan for removal of left chest tube. 03/08: Patient doing well today continue sit up in chair utilizing CPAP. Patient noted to be less anxious today with addition of Xanax yesterday informed me mouthing words that she got some sleep last night with the melatonin. [facility] Objective Vital Signs Date Time Temp Pulse Resp B/P (MAP) Pulse Ox O2 Delivery O2 Flow Rate FiO2 03/08/18 12:00 97.6 65 22 141/65 (90) 95 03/08/18 12:00 55 03/07/18 10:00 T-piece 12.00 Intake and Output 03/08/18 03/08/18 03/09/18 08:00 16:00 00:00 Intake Total 856.5 ml 250 ml Output Total 1450 ml Balance -593.5 ml 250 ml Result Diagram: 03/08/18 0419 03/07/18 2223 Other Results Microbiology Date/Time Source Procedure Growth Status 03/06/18 00:00 Sputum Endotracheal Gram Stain - Final Complete 03/06/18 00:00 Sputum Culture - Final S. Aureus Mrsa Complete Imaging Last Impressions Chest X-Ray 03/07/18 0000 Signed Impressions: Service Date/Time: March 14:02 - CONCLUSION: 1. Both right chest tubes have been removed and there is a small right pneumothorax. Both left chest tubes remain present and no pneumothorax is visualized on the left. 2. Stable severe diffuse right lung airspace consolidation that is most severe in the right midlung zone. 3. Stable small left pleural effusion with airspace consolidation at the left lung base. Michael Perea MD Chest CT 03/03/18 0000 Signed Impressions: Service Date/Time: Saturday, March 03, 2018 16:02 - CONCLUSION: 1. Romeo Espinoza MD Abdomen X-Ray 03/01/18 0000 Signed Impressions: Service Date/Time: Thursday, March 01, 2018 12:04 - CONCLUSION: 1. NG tip in proximal stomach with side-port in distal esophagus. Everett Ng MD Brain MRI 02/24/18 0000 Signed Impressions: Service Date/Time: Saturday, February 24, 2018 12:42 - CONCLUSION: Negative exam with no evidence of hemorrhage, mass infarction. Kevin Tello MD Head CT 02/21/18 0000 Signed Impressions: Service Date/Time: February 14:24 - CONCLUSION: 1. Bilateral mastoiditis. 2. Otherwise negative. No acute intracranial process to explain current clinical symptoms Gino Hernandez MD Chest Tube Insertion 02/21/18 0000 Signed Impressions: Service Date/Time: February 14:36 - CONCLUSION: Uncomplicated chest tube placement as above. Karri Muhammad MD Liver Ultrasound 02/11/18 0000 Signed Impressions: Service Date/Time: Sunday, February 11, 2018 09:34 - CONCLUSION: Nondiagnostic examination CT scan is recommended for further evaluation if clinically indicated. To Vaughn MD Neck CT 02/10/18 0000 Signed Impressions: Service Date/Time: Saturday, February 10, 2018 14:57 - CONCLUSION: 1. Extensive subcutaneous edema in the neck which has dissected cephalad from the chest and is worse on the left side. 2. Support apparatus as above. See chest CT report for evaluation of lungs. 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 No adenopathy. Everett Ng MD Last Impressions Chest X-Ray 03/06/18 0000 Signed Impressions: Service Date/Time: Tuesday, March 06, 2018 06:26 - CONCLUSION: 1. Persistent bilateral airspace disease, right greater than left. Possible associated left-sided effusion. 2. Bilateral thoracostomy tubes, one on the right and 2 on the left. Small, 1 cm right apical pneumothorax. Gino Hernandez MD Chest CT 03/03/18 0000 Signed Impressions: Service Date/Time: Saturday, March 03, 2018 16:02 - CONCLUSION: 1. Romeo Espinoza MD Abdomen X-Ray 03/01/18 0000 Signed Impressions: Service Date/Time: Thursday, March 01, 2018 12:04 - CONCLUSION: 1. NG tip in proximal stomach with side-port in distal esophagus. Everett Ng MD Brain MRI 02/24/18 0000 Signed Impressions: Service Date/Time: Saturday, February 24, 2018 12:42 - CONCLUSION: Negative exam with no evidence of hemorrhage, mass infarction. Kevin Tello MD Head CT 02/21/18 0000 Signed Impressions: Service Date/Time: February 14:24 - CONCLUSION: 1. Bilateral mastoiditis. 2. Otherwise negative. No acute intracranial process to explain current clinical symptoms Gino Hernandez MD Chest Tube Insertion 02/21/18 0000 Signed Impressions: Service Date/Time: February 14:36 - CONCLUSION: Uncomplicated chest tube placement as above. Karri Muhammad MD Liver Ultrasound 02/11/18 0000 Signed Impressions: Service Date/Time: Sunday, February 11, 2018 09:34 - CONCLUSION: Nondiagnostic examination CT scan is recommended for further evaluation if clinically indicated. To Vaughn MD Neck CT 02/10/18 0000 Signed Impressions: Service Date/Time: Saturday, February 10, 2018 14:57 - CONCLUSION: 1. Extensive subcutaneous edema in the neck which has dissected cephalad from the chest and is worse on the left side. 2. Support apparatus as above. See chest CT report for evaluation of lungs. 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 No adenopathy. Everett Ng MD Last Impressions Chest X-Ray 03/05/18 0600 Signed Impressions: Service Date/Time: Monday, March 05, 2018 05:47 - CONCLUSION: 1. Bilateral chest tubes remain present and no pneumothorax is seen. 2. Stable appearance of the lungs with moderate to severe right mid and lower lung zone airspace consolidation and left pleural-parenchymal opacity likely representing small pleural effusion with associated atelectasis and consolidation. Michael Perea MD Chest CT 03/03/18 0000 Signed Impressions: Service Date/Time: Saturday, March 03, 2018 16:02 - CONCLUSION: 1. Romeo Espinoza MD Abdomen X-Ray 03/01/18 0000 Signed Impressions: Service Date/Time: Thursday, March 01, 2018 12:04 - CONCLUSION: 1. NG tip in proximal stomach with side-port in distal esophagus. Everett Ng MD Brain MRI 02/24/18 0000 Signed Impressions: Service Date/Time: Saturday, February 24, 2018 12:42 - CONCLUSION: Negative exam with no evidence of hemorrhage, mass infarction. Kevin Tello MD Head CT 02/21/18 0000 Signed Impressions: Service Date/Time: February 14:24 - CONCLUSION: 1. Bilateral mastoiditis. 2. Otherwise negative. No acute intracranial process to explain current clinical symptoms Gino Hernandez MD Chest Tube Insertion 02/21/18 0000 Signed Impressions: Service Date/Time: February 14:36 - CONCLUSION: Uncomplicated chest tube placement as above. Karri Muhammad MD Liver Ultrasound 02/11/18 0000 Signed Impressions: Service Date/Time: Sunday, February 11, 2018 09:34 - CONCLUSION: Nondiagnostic examination CT scan is recommended for further evaluation if clinically indicated. To Vaughn MD Neck CT 02/10/18 0000 Signed Impressions: Service Date/Time: Saturday, February 10, 2018 14:57 - CONCLUSION: 1. Extensive subcutaneous edema in the neck which has dissected cephalad from the chest and is worse on the left side. 2. Support apparatus as above. See chest CT report for evaluation of lungs. 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 No adenopathy. Everett Ng MD Last 24 hours Impressions Chest X-Ray 03/03/18599 Signed Impressions: Service Date/Time: Saturday, March 03, 2018 04:55 - CONCLUSION: Persistent bilateral infiltrates. Bilateral chest tubes stable. No pneumothorax seen. Ilya Harris MD Last 24 hours Impressions Chest X-Ray 03/02/18599 Signed Impressions: Service Date/Time: Friday, March 02, 2018 04:13 - CONCLUSION: Stable bilateral infiltrates and left pleural effusion. Ilya Harris MD Last 24 hours Impressions Chest X-Ray 03/01/18599 Signed Impressions: Service Date/Time: Thursday, March 01, 2018 04:39 - CONCLUSION: 1. Stable bilateral patchy infiltrates. 2. Side port of the gastric tube is 2.5 cm above the diaphragm and needs to be advanced approximately 5 cm. Ilya Harris MD Abdomen X-Ray 03/01/18 Signed Impressions: Service Date/Time: Thursday, March 01, 2018 12:04 - CONCLUSION: 1. NG tip in proximal stomach with side-port in distal esophagus. Everett Ng MD Last 24 hours Impressions Chest X-Ray 02/28/18599 Signed Impressions: Service Date/Time: February 04:16 - CONCLUSION: 1. 2 right-sided chest tubes with small right apical pneumothorax. 2. 2 left-sided chest tubes without pneumothorax. 3. Left lateral pleural density is stable. 4. Bilateral airspace disease, unchanged Karri Muhammad MD Last 24 hours Impressions Chest X-Ray 02/26/18599 Signed Impressions: Service Date/Time: Monday, February 26, 2018 03:24 - CONCLUSION: 1. 2 chest tubes present bilaterally with a small right apical pneumothorax present. Air space disease and loculated fluid on the left are stable. Everett Ng MD Last Impressions Chest X-Ray 02/17/18 0000 Signed Impressions: Service Date/Time: Saturday, February 17, 2018 04:00 - CONCLUSION: 1. Patchy alveolar disease characteristic of edema or pneumonia. There has been no significant change when compared to the prior exam. To Vaughn MD Chest CT 02/12/18 1334 Signed Impressions: Service Date/Time: Monday, February 12, 2018 14:07 - CONCLUSION: 1. The loculated anterior left pneumothorax has resolved. A small left pleural effusion remains present and the 2 left chest tubes appear to be in good position to drain the fluid. 2. Significant improvement in the bilateral chest wall subcutaneous emphysema. 3. Stable severe kinking of the large bore right chest tube. This chest tube also extends into the fissure. Given these 2 findings, this likely not providing any significant suction. Consider removal. 4. Stable severe bilateral airspace consolidation with multifocal areas of cavitation. Michael Perea MD Liver Ultrasound 02/11/18 0000 Signed Impressions: Service Date/Time: Sunday, February 11, 2018 09:34 - CONCLUSION: Nondiagnostic examination CT scan is recommended for further evaluation if clinically indicated. To Vaughn MD Neck CT 02/10/18 0000 Signed Impressions: Service Date/Time: Saturday, February 10, 2018 14:57 - CONCLUSION: 1. Extensive subcutaneous edema in the neck which has dissected cephalad from the chest and is worse on the left side. 2. Support apparatus as above. See chest CT report for evaluation of lungs. 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 No adenopathy. Everett Ng MD Procedures 02/05- Right emergent 20 F chest tube placement 02/06: Left 28 Dominican chest tube placement, right chest tube replacement 28 Dominican 03/06: Laparoscopic gastric tube placed Objective Remarks General - middle-aged lady, awake, chronically ill-appearing weak, semirecumbent in bed communicating by nodding head yes and no and mouthing words HEENT - pupils equal, reactive, sclerae are anicteric, neck supple, no neck rigidity, no JVD, trach is in place CV - regular heart sound, no murmurs, rubs or gallops appreciated Chest - coarse breath sounds b/l, improved air entry at the bases, no wheezes, bilateral chest tubes [address] Abdomen - soft, non-tender, not distended, BS present Extremities - warm, 1+ edema, + peripheral pulses Neuro -GCS 11 T . Currently on Precedex 1.3 mcg/hr infusion .awake, follows some commands, but she remains very weak, Moves extremities x 4 A/P Assessment and Plan Neuro: Acute metabolic encephalopathy Agitation Insomnia Plan to discontinue Precedex Continue clonidine Scheduled oxycodone for pain and fentanyl as needed Daily sedation vacation, as tolerated, but she becomes very tachypneic off Precedex. Attenuating Precedex currently 1.3 mcg/kg/hr Xanax 1 mg every 6 hours as needed Melatonin 10 mg nightly for insomnia. 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 PEEP decreased to 5. Daily CPAP trial Fluid studies sent 02/22/2018 not consistent with empyema Bilateral pigtail catheters and [address](4 total)-has minimal output, but maintain all chest tubes due to pneumo re-expansion Moderate left-sided pleural effusion, new left pigtail chest tube placed by radiology 02/21/2018 , but with only partial drainage Thoracic surgery has followed- Dr. Thornton-not planning on any surgical intervention DuoNeb scheduled and when necessary. 03/06 Right-sided lower chest tubes removed and left-sided chest tubes to waterseal. Ronnie with Dr. Pride plan for removal of left-sided chest tubes CT chest done on 03/03 reviewed Chest x-ray 03/08-small right apical pneumothorax unchanged 03/08-removal of left pigtail chest tube by IR, removal of left lower chest Renal: Acute kidney injury-resolved Fluid overload -improving Contraction alkalosis -improved -Stopped albumin on 03/02 -Continue Lasix to 40 every 12 hours -Diamox 5001 given on 03/02 with improvement in her alkalosis Cardiovascular: A. fib with RVR (converted to NSR 02/02) Significantly fluid overloaded-resolved -02/05 amiodarone infusion discontinued. -4/3 GRANT -no valvular vegetations. EF 55-60%, trace MVR, mild TVR, PAP 35 -Continue Cardizem 60mg Q6 and Lopressor 25mg Q12 GI Elevated LFTs ( trending down) -Hepatitis profile: Negative. US liver: non-diagnostic study -Tube feeds Jevity 1.5 -has been advanced to 30 cc/hr -On Pepcid 20mg BID -General Surgery - S/P Laparoscopic G tube placement / ID: MRSA, Enterobacter pneumonia MRSA Bacteremia -Antibiotics per ID. Currently on vancomycin and Zosyn -Monitor for signs of new infections ( Fever, WBC) -ID- Dr. Singleton following -White count is trending down Endocrine: Hyperglycemia Medium scale sliding scale insulin dosing Glucose monitoring per ICU protocol Hematology: Anemia -improved H&H post transfusion Monitor CBC MSK: PT evaluation and treat Patient up out of bed to stretcher chair DVT GI prophylaxis - Teds SCDs - Subcutaneous heparin - Pepcid Lines: peripheral IV's. Palliative care is following. Patient is slowly making progress, will most likely will need [facility] after recovery. Code status: Alternative code 5/4 removal of left-sided chest tubes Level 3 follow-up. Discussed with LIFESTYLE DIRECTOR at bedside ([place]) Discussed with Dr. [place] [facility] surgery okay to increase tube feeds to optimal dosing, also okay for [facility] T tubes can be removed from surgical site and approximately 2 weeks Physician Dilcia Zhong MD March 08, 2018 14:36
[2018-03-08] MEDS: LORazepam 2 MG/ML VIAL IV PUSH PRN (14:47)
--- NOTE | 2018-03-08 15:00 | HHI.DS ---
Discharge Summary Admission Date Jan 30, 2018 at 18:45 Admitting Diagnosis sepsis, respiratory distress, metabolic acidosis, pneumonia Procedures 02/05- Right emergent 20 F chest tube placement 02/06: Left 28 Chadian chest tube placement, right chest tube replacement 28 Chadian 03/06: Laparoscopic gastric tube placed Brief History 62-year-old female presents for evaluation of increasing shortness of breath and chest pain. She reports 1 week of coughing 3 days of pain in her left chest which radiates to her back, which prompted the visit to the emergency room yesterday. She rates her pain a 6 out of 10. She reports fevers, chills, fatigue, mild nausea. She denies any abdominal pain, vomiting. Patient denies any significant past medical history. Symptom onset was gradual, symptom severity is severe, there are no alleviating factors. Patient states that she has been taking the azithromycin antibiotics that were prescribed to her. She denies any current or historical tobacco use. CBC/BMP: 03/08/18 0419 03/07/18 2223 Significant Findings Laboratory Tests Test 03/06/18 06:00 03/07/18 05:30 03/07/18 05:50 03/07/18 22:23 White Blood Count 17.5 TH/MM3 (4.0-11.0) 17.7 TH/MM3 (4.0-11.0) Red Blood Count 3.15 MIL/MM3 (4.00-5.30) 3.14 MIL/MM3 (4.00-5.30) Hemoglobin 8.8 GM/DL (11.6-15.3) 8.8 GM/DL (11.6-15.3) Hematocrit 27.3 % (35.0-46.0) 27.6 % (35.0-46.0) Blood Urea Nitrogen 26 MG/DL (7-18) 22 MG/DL (7-18) Random Glucose 137 MG/DL (74-106) 157 MG/DL (74-106) Sodium Level 146 MEQ/L (136-145) 147 MEQ/L (136-145) Potassium Level 3.2 MEQ/L (3.5-5.1) Neutrophils (%) (Auto) 84.0 % (16.0-70.0) Lymphocytes (%) (Auto) 7.3 % (9.0-44.0) Neutrophils # (Auto) 14.9 TH/MM3 (1.8-7.7) Eosinophils # (Auto) 0.5 TH/MM3 (0-0.4) Test 03/08/18 04:19 03/08/18 06:17 White Blood Count 12.6 TH/MM3 (4.0-11.0) Red Blood Count 3.22 MIL/MM3 (4.00-5.30) Hemoglobin 9.1 GM/DL (11.6-15.3) Hematocrit 28.5 % (35.0-46.0) Mean Corpuscular Hemoglobin Concent 31.9 % (32.0-36.0) Neutrophils (%) (Auto) 86.3 % (16.0-70.0) Lymphocytes (%) (Auto) 6.0 % (9.0-44.0) Neutrophils # (Auto) 10.9 TH/MM3 (1.8-7.7) Lymphocytes # (Auto) 0.8 TH/MM3 (1.0-4.8) Vancomycin Level Trough 15.7 MCG/ML (5.0-10.0) Hospital Course 01/30: 62-year-old female presents for evaluation of increasing shortness of breath and chest pain. She reports 1 week of coughing 3 days of pain in her left chest which radiates to her back, which prompted the visit to the emergency room yesterday. She rates her pain a 6 out of 10. She reports fevers , chills, fatigue, mild nausea. She denies any abdominal pain, vomiting. Patient denies any significant past medical history. Symptom onset was gradual , symptom severity is severe, there are no alleviating factors. Patient states that she has been taking the azithromycin antibiotics that were prescribed to her. She denies any current or historical tobacco use. 01/31: Intubated at 1 AM this morning and placed on mechanical ventilation due to worsening respiratory distress. Currently sedated, orally intubated on mechanical ventilation. 02/01: Remains sedated, orally intubated on mechanical ventilation. Went into A. fib with RVR this morning. Loaded with amiodarone, started on amiodarone drip and given digoxin 0.5 mg IV 02/02: Remains sedated, orally intubated on mechanical ventilation. Right sided pigtail catheter in place with 1+ air leak. Converted to sinus rhythm overnight. Remains on amiodarone gtt. 02/03: Remains sedated, orally intubated on mechanical ventilation. 1+ air leak and right sided pigtail catheter. Tolerating tube feeds. Remains on amiodarone gtt. 02/04: Noted to have pneumothorax on the left side this morning on routine chest x -ray which appeared to be under tension. Right sided pigtail catheter placed by Dr. Peña with reexpansion of lung. Patient remains sedated, orally intubated on mechanical ventilation. 1+ airleak and bilateral chest tubes noted. 02/05: Afebrile. Persistent leukocytosis, bilateral chest tubes continue on wall suction. Chest x-ray pending this a.m.. Patient scheduled for GRANT today, discussed with Dr. Vázquez. Patient continues on amiodarone infusion with sinus rhythm. Postprocedure GRANT,this afternoon, the patient became extremely agitated, noted significant increase in subcu emphysema, peak pressures 50's, O2 saturation significantly decreased to 78-80 %. Stat chest x-ray performed patient was noted to have a significant right pneumothorax. 20 Chadian right chest tube placement emergently, with increase in O2 saturation decrease in peak inspiratory pressures. 02/06: Afebrile. Patient with persistent bilateral pneumothoraces, with diffuse bilateral infiltrates and massive SQ emphysema. O2 requirement significantly increased during the night, PIP 38-44. 28 F chest tubes were placed bilaterally with resolution of left pneumothorax and minimization of right pneumothorax, and improved oxygenation. 02/07: TMax 100.1 Chest tubes remain on suction. Resolution of pneumothoraces, continued extensive SQ emphysema. Persistent leukocytosis noted. FiO2 weaned to 50%. 02/08: Late entry note patient seen at 1250. Attempts at CPAP trials, unsuccessful this morning. FiO2 decreased 50%, with adequate oxygenation. 02/09: Afebrile. The patient was transitioned to CPAP trials with pressure support of 22/8. FiO2 currently at 55% continuing to wean. Patient noted with positive fluid balance Lasix 40 mg IV now, patient is initiated on Lasix 40 daily. Patient with positive air leak in chest tubes #1-28 Chadian right and #3 pigtail left, both at 2+. Sedation vacation initiated early this a.m. patient neurologically intact. Patient continues on moderate sedation for CPAP to maintain ventilator synchrony plan for transitioning to Precedex. Noted improvement with subcu emphysema. Extensive discussion with patient's daughter regarding a possibility of a tracheostomy if unsuccessful with ventilator weaning process. 02/10: Subcutaneous emphysema has worsened overnight per RN who took care of the patient yesterday, now extending to the upper chest left neck and to the left side of the face including left eyelids. No increase in FiO2 requirement currently on 55%. I have reduced inspiratory pressure from 32 to 28. FiO2 reduced to 50%. Will check a repeat chest x-ray in afternoon if needed. Will request CT surgical evaluation for persistent subcutaneous emphysema despite 2 chest tubes bilaterally 02/11 Patient is sedated with Diprivan, Versed and Fentanyl drips. T: 101.[address] guided chest tube placement by IR today 02/12 No events overnight. Remains sedated and intubated. Afebrile. On PC/AC with PEEP: 8 and FIO2 40%. 02/13 Patient remains intubated and heavily sedated. Afebrile. Repeat CT chest yesterday showed loculated anterior left pneumothorax has resolved. A small left pleural effusion remains present and the 2 left chest tubes appear to be in good position to drain the fluid. Significant improvement in the bilateral chest wall subcutaneous emphysema. 02/14 Patient remains sedated and intubated. Afebrile. On Bumex drip 0.5mg/hr. 02/15 Patient remains intubated and sedated, On Bumex drip 0.5mg/hr with good urine output. T:100.1 02/16 Patient remains sedated and intubated. Off Bumex drip. Afebrile. 02/17 Remains intubated and sedated with Diprivan and Fentanyl drips. Afebrile. For trach tomorrow. 02/18: Trach anticipated for today. Remains sedated. Family at the bedside updated. Coags are normal 02/19: Tracheostomy performed yesterday, patient now with increasing oxygen requirement more critical. Currently on 70% FiO2. A stat CT of the chest ordered by ID shows persistent consolidation multilobar with multiple cavitations. Family updated at the bedside. At this time do not appear to be adequately responding to treatment 02/20: Remains critical with high FiO2 and PEEP requirements. CT chest yesterday showed persistent consolidation and cavitation and a moderate-sized left pleural effusion. Sputum culture again growing MRSA. White count increased to 19,000 today. Left pleural effusion need to be drained, consult IR for CT guided chest tube, due to worsening sepsis 02/21: Patient remains intubated sedated and critically ill. PEEP requirement still remains high and FiO2 is at 50%. Radiology to place new large bore pigtail chest tube for left pleural effusion which is loculated. Will remove the small pigtail chest tube after new one is placed. On sedation hold patient appears to be weak on left side. Check CT of the head also. Grossly fluid overloaded. We will start scheduled dialysis with IV Lasix. Teflaro added to Zyvox yesterday 02/22: Continues to be requiring high oxygen currently at 50% PEEP at 8. New large bore pigtail chest tube placed on the left side yesterday with 200 mL output since placement. Bilateral previous pigtails to waterseal plan to remove the left original pigtail chest tube today. Patient continues to be encephalopathy 02/23: Remains on full ventilator support diuresing well with Lasix but still significantly fluid overloaded. Increase Lasix to 40 every 6 hours, add Diamox for 3 days. Continue chest tubes to suction. Fio2 reduced to 40% PEEP down to 10. MRI and EEG ordered due to persistent encephalopathy 02/24: No acute change in neurological status. EEG in progress. MRI pending. Right upper lobe pneumothorax resolved. Chest tubes 4 remain on -40 cm of water pressure plan for left upper and lower chest tube to be placed to waterseal today. Tracheal sutures in situ area clean dry and intact plan for suture removal of trach site tomorrow. Definition of goals of care to be discussed with palliative/ family conference scheduled for Sunday 02/25. 02/25: Remains on full vent support, PEEP 8, FiO2 50%. Remains on propofol and fentanyl. CXR remains stable. Tolerated PSV for 2 hours yesterday. Start Precedex and clonidine to facilitate more aggressive SBT, change fentanyl to patch. MRI negative for CVA, EEG encephalopathy. 02/26: No events over the night. Patient remains poorly responsive. No change in oxygenation, tolerating CPAP 15/8 and 55% O2. T-max of 99.1. I/O 3368/ 4580. Sister present at bedside. 2 right-sided chest tubes on suction, #4 with continuous air leak, 2 left-sided chest tubes on waterseal with no leak. 02/27: Patient did well over the night. This morning patient is more awake, attempting to follow some simple commands. T-max of 98.7, I/O 3267/4525. Sister and daughter present at bedside. Two right-sided chest tubes on suction , #4 with small air leak, 2 left-sided chest tubes on waterseal with no leak. 02/28: No events overnight. Patient remains awake, following, more interactive. T-max of 99.8, urine output remains adequate. Two right-sided chest tubes on suction, #4 still has air leak, 2 left-sided chest tubes on waterseal with no leak. Morning chest x-ray reviewed no significant change compared to previous one, still with small apical right residual pneumothorax. No family present at bedside. 03/01: No events over the night. Patient remains awake, following commands, tolerating CPAP 15/8 at 55% O2. Great urine output with Lasix. Daughter present at bedside. 03/02: Patient did well overnight. T-max of 99.6. Currently on CPAP 15/8, slightly with Vt 3-400's. I/O 2700/5210. Patient is awake, tracking, following commands. Chest x-ray reviewed no significant change compared to the one from yesterday. 03/03: No events over the night. Patient remains intubated, on Precedex. This morning on CPAP trial breathing in the 40s therefore I switched her to full support ventilation. She continues to have very good urine output. T-max of 99.9. 03/04: Patient remains awake, on the vent. She is afebrile, with a T-max of 98.8. Very good response to diuresis. CT chest done yesterday was reviewed. Tolerates CPAP every day for a few hours. CT # 4 still with small air leak. 03/05: Afebrile. The patient is scheduled for laparoscopic gastric tube placement today. Right-sided chest tubes placed on waterseal this a.m.. Tentative plan to remove right chest tubes post laparoscopic OR procedure today. The patient remains alert and oriented. Patient tolerated CPAP trials for approximately 1 hour yesterday. Patient was up out of bed and stretch her chair for approximately 5 hours yesterday. 03/06: Afebrile. The patient is status post laparoscopic gastric tube placement last evening, draining bilious fluid. Patient up out of bed and stretch her chair, alert currently on CPAP. Chest x-ray this a.m. showed small right apical pneumothorax, noted small air leak in right upper chest tube, he is on 20 cm of suction. 03/07: Both right chest tubes were removed yesterday. Small apical pneumothorax persists, no expansion. Patient noted to have agitation and anxiety did not sleep during the night. Melatonin and Xanax added to medication regimen. Discussed with plan for removal of left chest tube. 03/08: Patient doing well today continue sit up in chair utilizing CPAP. Patient noted to be less anxious today with addition of Xanax yesterday informed me mouthing words that she got some sleep last night with the melatonin. Family agrees and desires patient [facility] Condition on Discharge: Fair Discharge Disposition: Disch to Another Hospital Discharge Instructions DIET: Follow Instructions for: On Tube Feeding Activities you can perform: Continue Bedrest Other Activity Instructions: OOB to stretcher chair Dilcia Cooper MD March 08, 2018 15:00
--- NOTE | 2018-03-08 15:44 | RADRPT ---
EXAM DATE/TIME: 03/08/2018 00:00 [facility] COMPARISON: No previous studies available for comparison. INDICATIONS : pneumothorax DEVICE(S): 1.) Vaseline occlusive dressing PROCEDURE : Chest tube removal. Using aseptic technique the previously placed chest tube was easily removed in one piece and Vaseline gauze and sterile dressing was applied. Chest radiograph is to be obtained. CONCLUSION: Uncomplicated chest tube removal. Romeo Espinoza MD on March 08, 2018 at 15:42 Board Certified Radiologist. This report was verified electronically.
--- NOTE | 2018-03-08 15:44 | RADRPT ---
EXAM DATE/TIME: 03/08/2018 15:14 [facility] COMPARISON: CHEST SINGLE AP, March 08, 2018, 4:45. INDICATIONS : Left sided chest tube removal. MEDICAL HISTORY : Sepsis. SURGICAL HISTORY : Tonsillectomy. Gastric bypass. ENCOUNTER: Initial ACUITY: 1 day PAIN SCORE: Non-responsive. LOCATION: Left chest FINDINGS: Small bore chest tube has been removed on the left without pneumothorax. Large bore chest tube remai ns. Patchy airspace disease persists in the right lung. CONCLUSION: No interval change following removal of small bore chest tube on the left. Geovani Bo MD FACR on March 08, 2018 at 15:42 Board Certified Radiologist. This report was verified electronically.
--- NOTE | 2018-03-08 16:25 | RADRPT ---
EXAM DATE/TIME: 03/08/2018 16:07 [facility] COMPARISON: CHEST SINGLE AP, March 08, 2018, 15:14. INDICATIONS : Left sided chest tube removal MEDICAL HISTORY : Sepsis. SURGICAL HISTORY : Tonsillectomy. Gastric bypass ENCOUNTER: Initial ACUITY: 1 day PAIN SCORE: Non-responsive. LOCATION: Left chest FINDINGS: Large bore chest tube has been removed on the left. Patchy airspace disease is seen on both the righ t and left minimal loculated air in the right base. Tracheostomy tube in good position. CONCLUSION: No pneumothorax following removal of the large bore chest tube on the left. Patchy airspace disease and loculated air remains in the right.. Geovani Bo MD FACR on March 08, 2018 at 16:22 Board Certified Radiologist. This report was verified electronically.
--- NOTE | 2018-03-08 18:10 | HHI.PR ---
Subjective Remarks Patient remains sedated with Diprivan and Fentanyl infusions. On PRVC with PEEP: 8, FIO2:60%. Afebrile. Awake, follows simple commands Was more responsive, mouthing words had Laproscopic G-tube placement On CPAP, tolerates Awake, on Precedex Follows commands Objective Vital Signs Vital Signs Date Time Temp Pulse Resp B/P (MAP) Pulse Ox O2 Delivery O2 Flow Rate FiO2 03/08/18 16:00 63 03/08/18 16:00 55 03/08/18 16:00 98.5 63 124/59 (80) 97 03/08/18 15:27 92 55 03/08/18 14:00 66 03/08/18 12:00 97.6 65 22 141/65 (90) 95 03/08/18 12:00 65 03/08/18 12:00 55 03/08/18 11:31 95 55 03/08/18 10:00 69 03/08/18 08:00 77 03/08/18 08:00 77 03/08/18 08:00 55 03/08/18 08:00 98.9 77 28 149/67 (94) 94 03/08/18 07:35 92 50 03/08/18 06:00 64 03/08/18 04:31 95 55 03/08/18 04:00 55 03/08/18 04:00 98.6 65 19 115/57 (76) 94 03/08/18 04:00 65 03/08/18 03:29 20 03/08/18 02:42 79 03/08/18 01:32 100 50 03/08/18 00:00 99.0 62 19 131/60 (83) 98 03/08/18 00:00 62 03/08/18 00:00 55 03/07/18 22:21 98 55 03/07/18 22:00 83 03/07/18 20:00 99.1 84 21 161/70 (100) 98 03/07/18 20:00 84 03/07/18 20:00 50 I/O 03/07/18 03/07/18 03/07/18 03/08/18 03/08/18 03/08/18 07:00 15:00 23:00 07:00 15:00 23:00 Intake Total 392 ml 246 ml 594 ml 612.5 ml 250 ml Output Total 1350 ml 1425 ml 1450 ml Balance -958 ml -1179 ml -856 ml 612.5 ml 250 ml IV Total 250 ml 250 ml 612.5 ml 250 ml Tube Feeding 102 ml 161 ml 294 ml Tube Irrigant 85 ml Other 40 ml 50 ml Output Urine Total 1350 ml 1425 ml 1450 ml Chest Tube Drainage Total 0 ml 0 ml # Bowel Movements 0 1 0 Result Diagram: 03/08/18 0419 03/07/18 2223 Objective Remarks GENERAL: WBWN Female, on Vent, sedated SKIN: Warm and dry. HEAD: Normocephalic. EYES: No scleral icterus. No injection or drainage. NECK: Supple, trachea midline. No JVD or lymphadenopathy. CARDIOVASCULAR: Regular rate and rhythm without murmurs, gallops, or rubs. RESPIRATORY: Breath sounds equal bilaterally. No accessory muscle use. [address] SQ Emphysema. GASTROINTESTINAL: Abdomen soft, non-tender, nondistended. MUSCULOSKELETAL: No cyanosis, or edema. Neuro: Sedated, A/P Assessment and Plan Acute hypoxemic respiratory failure s/p trach MRSA pneumonia, with multiple cavitations and consolidation s/p Moderate sized left pleural effusion, ? empyema COPD Bilateral pneumothorax, status post large bore chest tube Post Influenza pneumonia Leukocytosis Anemia PLAN: Cont Vent support keep sats >92% Wean 02 Bronchodilators Pulm toilet, trach care Monitor CT output. GI/DVT prophylaxis Palliative care is following CPAP as tolerated DC plans for [facility]. Dru Pride MD March 08, 2018 18:10
== END 2018-03-08 17:20 | DRG 4 ==
LOC: NEPC 11:13 → NEDA 18:45 → HIMN 22:05
PROVIDERS: ADMIT Internal Medicine Critical Care Medicine; ATTEND Internal Medicine Critical Care Medicine
PROC: 5A09357 Assistance with Respiratory Ventilation, Less than 24 Consecutive Hours, Continuous Positive Airway Pressure (ICD-10-PCS; 2018-01-30)
PROC: 5A1955Z Respiratory Ventilation, Greater than 96 Consecutive Hours (ICD-10-PCS; 2018-01-31)
PROC: 0BH17EZ Insertion of Endotracheal Airway into Trachea, Via Natural or Artificial Opening (ICD-10-PCS; 2018-01-31)
PROC: 0BC78ZZ Extirpation of Matter from Left Main Bronchus, Via Natural or Artificial Opening Endoscopic (ICD-10-PCS; 2018-01-31)
PROC: 0BC38ZZ Extirpation of Matter from Right Main Bronchus, Via Natural or Artificial Opening Endoscopic (ICD-10-PCS; 2018-01-31)
PROC: 02HV33Z Insertion of Infusion Device into Superior Vena Cava, Percutaneous Approach (ICD-10-PCS; 2018-02-01)
PROC: 0W9930Z Drainage of Right Pleural Cavity with Drainage Device, Percutaneous Approach (ICD-10-PCS; 2018-02-01)
PROC: 0W9B30Z Drainage of Left Pleural Cavity with Drainage Device, Percutaneous Approach (ICD-10-PCS; 2018-02-04)
PROC: 0W9930Z Drainage of Right Pleural Cavity with Drainage Device, Percutaneous Approach (ICD-10-PCS; 2018-02-05)
PROC: 0W9B30Z Drainage of Left Pleural Cavity with Drainage Device, Percutaneous Approach (ICD-10-PCS; 2018-02-06)
PROC: 0W9930Z Drainage of Right Pleural Cavity with Drainage Device, Percutaneous Approach (ICD-10-PCS; 2018-02-06)
PROC: 0BJ08ZZ Inspection of Tracheobronchial Tree, Via Natural or Artificial Opening Endoscopic (ICD-10-PCS; 2018-02-18)
PROC: 0DJ08ZZ Inspection of Upper Intestinal Tract, Via Natural or Artificial Opening Endoscopic (ICD-10-PCS; 2018-02-18)
PROC: 0B113F4 Bypass Trachea to Cutaneous with Tracheostomy Device, Percutaneous Approach (ICD-10-PCS; principal; 2018-02-18 14:30)
PROC: 0W9B30Z Drainage of Left Pleural Cavity with Drainage Device, Percutaneous Approach (ICD-10-PCS; 2018-02-21)
PROC: 30233N1 Transfusion of Nonautologous Red Blood Cells into Peripheral Vein, Percutaneous Approach (ICD-10-PCS; 2018-02-26)
PROC: 0DH64UZ Insertion of Feeding Device into Stomach, Percutaneous Endoscopic Approach (ICD-10-PCS; 2018-03-05)
DX: A41.02 Sepsis due to Methicillin resistant Staphylococcus aureus (principal); J93.0 Spontaneous tension pneumothorax; J15.212 Pneumonia due to Methicillin resistant Staphylococcus aureus; J15.6 Pneumonia due to other Gram-negative bacteria; G93.41 Metabolic encephalopathy; J85.0 Gangrene and necrosis of lung; J90 Pleural effusion, not elsewhere classified; J96.01 Acute respiratory failure with hypoxia; T79.7XXA Traumatic subcutaneous emphysema, initial encounter; N17.9 Acute kidney failure, unspecified; E87.4 Mixed disorder of acid-base balance; J94.8 Other specified pleural conditions; J93.82 Other air leak; R13.10 Dysphagia, unspecified; E86.0 Dehydration; R00.0 Tachycardia, unspecified; I48.91 Unspecified atrial fibrillation; F32.9 Major depressive disorder, single episode, unspecified; E66.01 Morbid (severe) obesity due to excess calories; D64.9 Anemia, unspecified; E88.09 Other disorders of plasma-protein metabolism, not elsewhere classified; E87.70 Fluid overload, unspecified; R21 Rash and other nonspecific skin eruption; R73.9 Hyperglycemia, unspecified; R79.89 Other specified abnormal findings of blood chemistry; G47.00 Insomnia, unspecified; F41.9 Anxiety disorder, unspecified; Z68.39 Body mass index [BMI] 39.0-39.9, adult; Z98.84 Bariatric surgery status; R94.31 Abnormal electrocardiogram [ECG] [EKG]
CPT/HCPCS: 31500; 31600; 31624; 32551; 32557; 36430; 36556; 36600; 70450; 70490; 70551; 71045; 71046; 71250; 74018; 76705; 76937; 80048; 80053; 80074; 80202; 81001; 82150; 82550; 82552; 82565; 82570; 82805; 82945; 82948; 83605; 83615; 83690; 83735; 83986; 84100; 84132; 84157; 84295; 84484; 85007; 85025; 85027; 85610; 85730; 86403; 86850; 86900; 86901; 86920; 87015; 87040; 87070; 87077; 87086; 87102; 87116; 87147; 87186; 87205; 87206; 87449; 87633; 87641; 87804; 88112; 88305; 89051; 93005; 93306; 93312; 93320; 93325; 94002; 94003; 94640; 94664; 95819; 96361; 96365; 96374; 96375; A7521; C1729; C1769; J0282; J0330; J0360; J0456; J0696; J0712; J1100; J1120; J1160; J1200; J1644; J1815; J1885; J1940; J2020; J2060; J2185; J2250; J2270; J2405; J2543; J2920; J2997; J3010; J3370; J3480; J7030; J7040; J7050; J7060; J7070; J7120; P9016; P9047